=== PATIENT | male | born 1955 ===

== ENCOUNTER 2017-03-08 03:24 | Inpatient (IN) ==
[2017-03-08] MEDS ORDERED: VECURONIUM 10 MG VIAL IV STA (03:39)
[2017-03-08] MEDS: PROPOFOL 1,000 MG/100 ML BOTTLE IV SCH ×3 (03:43→13:03)
[2017-03-08 03:44] LABS: ABG Base Excess -2.6 MMOL/L (-2.5-2.5); ABG HCO3 22.2 MMOL/L (20-26); ABG Oxygen Saturation 92.3 % (95-100); ABG PCO2 45.2 MM HG (35-48); ABG PH 7.326 (7.35-7.45); ABG PO2 73.4 MM HG (80-95); ABG TCO2 21.3 MMOL/L (23-27)
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
[2017-03-08 04:38] LABS: CKMB % 1.2 %; Troponin I Only 0.045 NG/ML (0.00-0.045)
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
[2017-03-08] MEDS ORDERED: PIPERACILLIN/TAZOBACTAM 3,375 MG in SODIUM CHLORIDE 0.9% 100 ML IV SCH (05:31)
[2017-03-08] MEDS ORDERED: VANCOMYCIN INJ 1,000 MG in SODIUM CHLORIDE 0.9% 250 ML IV ONE (05:31)
[2017-03-08] MEDS ORDERED: fentaNYL INJ 1,250 MCG in SODIUM CHLORIDE 0.9% 225 ML IV SCH (05:31)
[2017-03-08] MEDS ORDERED: AZITHROMYCIN INJ 500 MG in SODIUM CHLORIDE 0.9% 250 ML IV ONE (05:31)
[2017-03-08] MEDS ORDERED: BISACODYL 5 MG TABLET PO PRN (05:31)
[2017-03-08] MEDS ORDERED: DOCUSATE SODIUM 100 MG CAPSULE PO PRN (05:31)
[2017-03-08] MEDS ORDERED: POTASSIUM CHLORIDE 20 MEQ/15 ML UDCUP PER TUBE PRN (05:31)
[2017-03-08 05:40] LABS: Hematocrit 33.4 VOL% (42.0-52.0); Lymphocytes # 0.3 10*3/uL (1.4-4.0); Lymphocytes % 19.5 % (21.2-54.2); Mean Corpuscular HGB Conc 32.9 GM/DL (32-36); Mean Corpuscular Hemoglobin 29 PG (27-34); Mean Corpuscular Volume 88.1 FL (87-102); Mean Platelet Volume 10.6 FL (9.6-12.0); Monocytes % 3.1 % (1.7-12.7); Neutrophils % 77.4 % (38.7-73.9); Platelet Count 235 T/CUMM (130-400); Red Blood Count 3.79 MC/CUMM (3.8-5.5); Red Cell Distribution Width 17.2 % (9.3-17.3); White Blood Count 1.3 T/CUMM (4-12)
[2017-03-08] MEDS ORDERED: AZITHROMYCIN 500 MG VIAL IV ONE (05:40)
[2017-03-08] MEDS ORDERED: VANCOMYCIN 1,000 MG VIAL ONE (05:40)
[2017-03-08 05:44] LABS: INR 1.2; PT Patient Result 13.2 SECS; Partial Thromboplastin Time 37.6 SECS (0-40)
[2017-03-08 06:01] LABS: Albumin 2.3 G/DL (3.4-5.0); Bilirubin,Total 1.7 MG/DL (0.2-1.0); Calcium 7.1 MG/DL (8.5-10.1); Magnesium 2.2 MG/DL (1.8-2.4); Osmolality,Calculated 291.2 MOS/KG (273-304); Phosphorous 5.6 MG/DL (2.5-4.9); Potassium 3.4 MMOL/L (3.5-5.1); Total Protein 5.5 G/DL (6.4-8.3)
[2017-03-08 06:26] LABS: Band Neutrophils 18 % (0-10); Burr Cells Slight; Hypochromasia 1+; Lymphocytes 16 % (20-55); Platelet Estimate Adequate; Segmented Neutrophils 65 % (50-85); Total Cells Counted 100
[2017-03-08] MEDS ORDERED: PIPERACILLIN/TAZOBACTAM 3,375 MG VIAL IV ONE (07:04)
[2017-03-08] MEDS ORDERED: ASPIRIN EC 81 MG TABLET PO SCH (09:00)
[2017-03-08 09:10] LABS: ABG Base Excess -4.3 MMOL/L (-2.5-2.5); ABG HCO3 20.9 MMOL/L (20-26); ABG Oxygen Saturation 97.2 % (95-100); ABG PCO2 35.5 MM HG (35-48); ABG PH 7.367 (7.35-7.45); ABG PO2 98.4 MM HG (80-95); ABG TCO2 18.2 MMOL/L (23-27)
--- NOTE | 2017-03-08 09:10 | XRay Report ---
XR chest 1V portable Indication: Intubated. Chest one view: Comparison chest x-ray from outside facility 1.5 hours earlier. Endotracheal tube position is stable, 2 cm cephalad of the domenic. Worsening infiltrates involve the alveolar spaces of both lungs, with complete obscuration of the lung bases. Heart size remains minimally enlarged. Defibrillator pad again shown. Impression: Worsening pulmonary edema or diffuse infiltrates. Stable and appropriate endotracheal tube position. PROCEDURE INTERPRETED AT [facility] DEPARTMENT OF RADIOLOGY Final Report Signed by: Alfred Graham M.D.
--- NOTE | 2017-03-08 10:00 | Hospitalist Progress Note ---
Assessment and Plan (1) Congestive heart failure Status: Chronic Current Visit: No Qualifiers: Congestive heart failure type: unspecified congestive heart failure type (2) Diabetes Status: Chronic Current Visit: Yes Qualifiers: Diabetes mellitus type: type 1 Diabetes mellitus complication status: with kidney complications Diabetes mellitus complication detail: with chronic kidney disease Chronic kidney disease stage: stage 4 (severe) Qualified Code (s): E10.22 - Type 1 diabetes mellitus with diabetic chronic kidney disease; N18.4 - Chronic kidney disease, stage 4 (severe) (3) Hypertension Status: Chronic Current Visit: Yes (4) Elevated brain natriuretic peptide (BNP) level Status: Acute Assessment and plan: Component of congestive heart failure. Current Visit: No (5) Cardiomyopathy Status: Chronic Current Visit: No (6) Chronic kidney disease, stage IV (severe) Status: Chronic Current Visit: Yes (7) Respiratory failure Status: Acute Assessment and plan: Ask for pulmonary consultation. Current Visit: Yes Qualifiers: Chronicity: acute (8) Hypoglycemia Status: Resolved Assessment and plan: Will do mild sliding scale noted. Current Visit: Yes Hospitalist: Subjective Interval history: This patient was admitted on last night due to hypoglycemia and respiratory failure. He is now on a ventilator at this time sugars have started to improve. Hemodynamics are stable. Chest x-ray shows evidence of pulmonary edema. Exam - Constitutional Vitals: Period Temp Pulse Resp BP Sys/Post Pulse Ox Last 24 Hr 76-111 14-29 80-137/55-94 95-100 Ventilated sedated. Cardiovascular is regular rate. Lungs occasional wheezes. Abdomen is soft. Lower extremity 1+ lower extremity edema. General appearance: normal weight - Neck Neck exam: Present: normal inspection - Respiratory Respiratory exam: Present: rales - Cardiovascular Cardiovascular exam: Present: regular rate and rhythm - GI/Abdominal GI/Abdominal exam: Present: normal bowel sounds - Extremities Exam Extremities exam: Present: normal inspection Results - Labs CBC & BMP: 03/08/17 03:36 03/08/17 03:36
[2017-03-08] MEDS: LANSOPRAZOLE ODT 30 MG TABLET PER TUBE SCH (11:04)
[2017-03-08] MEDS: CYANOCOBALAMIN 500 MCG TABLET PO SCH (11:04)
[2017-03-08] MEDS: metOLazone 5 MG TABLET PO SCH (11:05)
[2017-03-08] MEDS: FUROSEMIDE 40 MG TABLET PO SCH ×2 (11:06→16:52)
[2017-03-08] MEDS: FOLIC ACID 1 MG TABLET PO SCH (11:06)
[2017-03-08] MEDS: ALBUTEROL/IPRATROPIUM 3 ML NEB RESP TX SCH ×4 (11:12→23:44)
[2017-03-08] MEDS ORDERED: VANCOMYCIN INJ 1,500 MG in SODIUM CHLORIDE 0.9% 500 ML IV PRN (11:19)
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
[2017-03-08 11:57] LABS: CKMB % 1.6 %
[2017-03-08 11:59] LABS: Troponin I Only 0.046 NG/ML (0.00-0.045)
[2017-03-08] MEDS ORDERED: VANCOMYCIN INJ 500 MG in SODIUM CHLORIDE 0.9% 100 ML IV ONE (12:00)
--- NOTE | 2017-03-08 13:08 | Ultrasound Report ---
US venous doppler LE BI Indication: Edema. Respiratory distress. BILATERAL LOWER EXTREMITY VENOUS ULTRASOUND Comparison: 08/02/2015 Findings: Graded grayscale compression, color Doppler and pulsed Doppler ultrasound evaluation of the venous structures performed. Normal compressibility, augmentation and color saturation is present within bilateral common femoral, superficial femoral, popliteal and proximal greater saphenous veins. Impression: No evidence of DVT either lower extremity. PROCEDURE INTERPRETED AT [facility] DEPARTMENT OF RADIOLOGY Final Report Signed by: Alfred Graham M.D.
[2017-03-08 14:11] LABS: Apearance,Urine Slightly Hazy (Clear); Bilirubin,Urine Negative (Negative); Blood, Urine Moderate mg/dL (Negative); Glucose,Urine (UA) 50 mg/dL (Negative); Ketones,Urine Negative (Negative); Mucus,Urine Occasional /LPF (Occasional); Nitrite,Urine Negative (Negative); Protein,Urine 100 MG/DL; RBC,Urine 2 /HPF (0-4); Urine Color Yellow (Yellow); Urine Specific Gravity 1.011 (1.001-1.035); Urine Urobilinogen < 2.0 EU/DL (0.2-1.0); WBC,Urine 1 /HPF (0-6)
--- NOTE | 2017-03-08 17:39 | ECHO Report ---
Juan Miguel Mantilla Exam Date: 03/08/2017 10:36 Referring Physician: Technologist: Susan Garcia RDCS Age: 61 Ht (in): 69 Wt (lb): 205 Gender: M Exam Location: [facility] Echo Indications: Acute respiratory failure with hypoxia, Chronic kidney disease, stage 4 (severe), Acute on chronic systolic (congestive) heart failure, Essential (primary) hypertension, IDDM, Hypoglycemia, Hypokalemia BP: 119 / 74 HR: 107 Rhythm: Sinus Technical Quality: IMPRESSIONS Normal left ventricular size, with mild concentric hypertrophy. Severe global hypokinesis, estimated left ventricular ejection fraction 20%. Grade 3 diastolic dysfunction. The right ventricle is mildly dilated, with normal systolic function, mild pulmonary hypertension. Mild biatrial enlargement. Mild pulmonic valve insufficiency. MEASUREMENTS (Male / Female) Normal Values 2D ECHO LV Diastolic Diameter PLAX 5.4 cm 4.2 - 5.9 / 3.9 - 5.3 cm LV Systolic Diameter PLAX 4.7 cm LV Fractional Shortening PLAX 12.4 % IVS Diastolic Thickness 1.3 cm 0.6 - 1.0 / 0.6 - 0.9 cm LVPW Diastolic Thickness 1.3 cm 0.6 - 1.0 / 0.6 - 0.9 cm RV Internal Dim ED PLAX 4.2 cm Aortic Root Diameter 3.7 cm LA Systolic Diameter LX 4.8 cm 3.0 - 4.0 / 2.7 - 3.8 cm DOPPLER TR Peak Velocity 304.0 cm/s TR Peak Gradient 37.0 mmHg FINDINGS Left Ventricle Normal left ventricular size, with mild concentric hypertrophy. Severe global hypokinesis, estimated left ventricular ejection fraction 20%. Grade 3 diastolic dysfunction. Right Ventricle The right ventricle is mildly dilated, with normal systolic function. Right Atrium The right atrium is mildly enlarged. Left Atrium The left atrium is mildly enlarged. Mitral Valve Morphologically normal mitral valve without significant stenosis or prolapse. There is trace mitral regurgitation. Aortic Valve Morphologically normal aortic valve without significant sclerosis or stenosis. There is trace aortic regurgitation. Tricuspid Valve Morphologically normal tricuspid valve. Mild tricuspid valve regurgitation. Tricuspid regurgitation velocities suggest a PAP of 47 mmHg. Pulmonic Valve Morphologically normal pulmonic valve. Mild pulmonary valve regurgitation. Pericardium Normal pericardium without effusion. Aorta Normal ascending aorta dimension. Andrade Villafuerte (Electronically Signed) Final Date: 08 March 2017 17:37
[2017-03-08 18:58] LABS: Troponin I Only 0.048 NG/ML (0.00-0.045)
[2017-03-08] MEDS: PIPERACILLIN/TAZOBACTAM 3,375 MG in SODIUM CHLORIDE 0.9% 100 ML IV SCH (20:28)
[2017-03-09] MEDS: PROPOFOL 1,000 MG/100 ML BOTTLE IV SCH ×3 (02:48→18:27)
[2017-03-09] MEDS: ALBUTEROL/IPRATROPIUM 3 ML NEB RESP TX SCH ×5 (03:12→19:46)
[2017-03-09 04:10] LABS: Allen Test Positive; Pt O2 Delivery Device Ventilator
[2017-03-09 04:15] LABS: ABG Base Excess -1.5 MMOL/L (-2.5-2.5); ABG HCO3 22.1 MMOL/L (20-26); ABG Oxygen Saturation 99.3 % (95-100); ABG PCO2 33.4 MM HG (35-48); ABG PH 7.439 (7.35-7.45); ABG PO2 218.5 MM HG (80-95); ABG TCO2 23.2 MMOL/L (23-27)
[2017-03-09 04:46] LABS: Basophils % 0.2 % (0.0-0.8); Eosinophils % 0.1 % (0.00-10.9); Hematocrit 29.6 VOL% (42.0-52.0); Hemoglobin 9.8 GM/DL (14.0-18.0); Immature Granulocytes % 2.4 %; Lymphocytes # 0.9 10*3/uL (1.4-4.0); Lymphocytes % 5.6 % (21.2-54.2); Mean Corpuscular HGB Conc 33.1 GM/DL (32-36); Mean Corpuscular Hemoglobin 29 PG (27-34); Mean Corpuscular Volume 87.3 FL (87-102); Mean Platelet Volume 11.2 FL (9.6-12.0); Monocytes # 0.4 10*3/uL (0.11-0.8); Monocytes % 2.6 % (1.7-12.7); Neutrophils # 14.7 10*3/uL (1.4-7.4); Neutrophils % 89.1 % (38.7-73.9); Platelet Count 210 T/CUMM (130-400); Red Blood Count 3.39 MC/CUMM (3.8-5.5); Red Cell Distribution Width 17.4 % (9.3-17.3)
[2017-03-09 05:09] LABS: Osmolality,Calculated 295.8 MOS/KG (273-304); Potassium 4.5 MMOL/L (3.5-5.1)
[2017-03-09 05:10] LABS: White Blood Count 16.5 T/CUMM (4-12)
[2017-03-09 05:30] LABS: Band Neutrophils 17 % (0-10); Burr Cells Slight; Hypochromasia Slight; Lymphocytes 8 % (20-55); Platelet Estimate Adequate; Segmented Neutrophils 75 % (50-85); Total Cells Counted 100
[2017-03-09 05:31] LABS: Ovalocytes Slight
--- NOTE | 2017-03-09 07:26 | XRay Report ---
Referring Physician: Alfonso Quesada Exam: XR chest 1V portable Date: March 09, 2017 at 3:14 AM Reason: Ventilator Comparison: Chest one view portable March 08, 2017 Findings: An endotracheal tube and feeding tube are again in place. The cardiac silhouette is again mildly enlarged. There are scattered opacities throughout both lungs, left greater than right. This could represent pulmonary edema and/or pneumonia. No pneumothorax is identified, but there is mild left pleural fluid. The osseous structures appear stable with a remote fracture of the left clavicle. Impression: There is slight improved aeration of both lungs with decreased right pleural fluid. PROCEDURE INTERPRETED AT [facility] DEPARTMENT OF RADIOLOGY Final Report Signed by: Dr. Ronak Nielson
[2017-03-09] MEDS: LANSOPRAZOLE ODT 30 MG TABLET PER TUBE SCH (08:40)
[2017-03-09] MEDS: metOLazone 5 MG TABLET PO SCH (08:40)
[2017-03-09] MEDS: CYANOCOBALAMIN 500 MCG TABLET PO SCH (08:40)
[2017-03-09] MEDS: FOLIC ACID 1 MG TABLET PO SCH (08:41)
[2017-03-09] MEDS: FUROSEMIDE 40 MG TABLET PO SCH ×2 (08:41→15:44)
[2017-03-09] MEDS: PIPERACILLIN/TAZOBACTAM 3,375 MG in SODIUM CHLORIDE 0.9% 100 ML IV SCH ×2 (08:48→20:34)
[2017-03-09] MEDS: ASPIRIN CHEW 81 MG TABLET PO SCH (08:48)
--- NOTE | 2017-03-09 09:58 | Hospitalist Progress Note ---
Assessment and Plan (1) Congestive heart failure Status: Chronic Current Visit: No Qualifiers: Congestive heart failure type: unspecified congestive heart failure type (2) Diabetes Status: Chronic Current Visit: Yes Qualifiers: Diabetes mellitus type: type 1 Diabetes mellitus complication status: with kidney complications Diabetes mellitus complication detail: with chronic kidney disease Chronic kidney disease stage: stage 4 (severe) Qualified Code (s): E10.22 - Type 1 diabetes mellitus with diabetic chronic kidney disease; N18.4 - Chronic kidney disease, stage 4 (severe) (3) Chronic kidney disease, stage IV (severe) Status: Chronic Current Visit: Yes (4) Bilateral pneumonia Status: Acute Current Visit: Yes (5) Acute hypoxemic respiratory failure Status: Acute Current Visit: Yes (6) Hypoglycemia Status: Resolved Current Visit: Yes Hospitalist: Subjective Interval history: No acute events overnight. Patient sedated on mechanical ventilation. Pulmonary managing. Continue vancomycin and zosyn for pneumonia. Renal consult today. Exam - Constitutional Vitals: Period Temp Pulse Resp BP Sys/Post Pulse Ox Last 24 Hr 98.2 F-98.9 F 64-107 2-519 86-121/45-80 97-100 General appearance: normal weight - Head Head exam: Present: normocephalic, atraumatic - Eye Eye exam: Present: EOMI Pupils: Present: ASHLY - ENT ENT exam: Present: normal exam - Neck Neck exam: Present: normal inspection - Respiratory Respiratory exam: Present: clear to auscultation bilaterally. Absent: rhonchi, wheezes - Cardiovascular Cardiovascular exam: Present: regular rate and rhythm - GI/Abdominal GI/Abdominal exam: Present: normal bowel sounds, soft - Extremities Exam Extremities exam: Present: normal inspection - Back Exam Back exam: Present: normal inspection - Skin Skin exam: Present: warm, intact Results - Labs CBC & BMP: 03/09/17 03:26 03/09/17 03:26
--- NOTE | 2017-03-09 10:19 | Pulmonology Progress Note ---
Pulmonary - PN: Subj Interval history: This is a 61-year-old male whom I saw in pulmonary consultation on 03/08/2017. This patient been sent from an outside hospital with chest pain. His troponins were said to be elevated. He had respiratory failure for oxygen and required intubation mechanical ventilation. Patient had originally been found down at home. He had taken insulin but had not eaten and was told that his glucoses were 40. My impressions were. 1. Bilateral pneumonia. I think we have to cover for gram positives and gram- negative rods but I suspect this will negative turner to be staph. 2. Adult respiratory distress syndrome most likely secondary to #1. Watch for congestive heart failure 3. History of heart disease with ejection fraction of 40% 4. Hypoglycemia. 5. Insulin-dependent diabetes mellitus 6. Chronic renal failure. 6. Anemia 7. Previous splenectomy. 8. Electrolyte abnormalities. 9. Calcium and phosphorus abnormalities. 10. See past history 03/09/2017. Today's chest x-ray shows 5 lobe bilateral infiltrates. On the right side these are a little less extensive a little less dense than before. There are no positive cultures. The patient's admit white blood cell count was 1300. Is now increased to 16,500 with 89 6. H&H is low at 9.8/29.6. Electrolytes normal. Creatinine is 4.2 with a BUN of 68. Natruretic peptide is elevated 1664. ABGs on mechanical ventilation FiO2 90% shows a pH 7.44, PCO2 33.4, PO2 has increased to 6 218.5 with a bicarb of 22.1. Doppler venograms done 03/08/2017 showed no evidence of deep venous thrombophlebitis. We do not know whether or not this patient aspirated. Once she is more stable I will evaluated with fiberoptic bronchoscopy. I anticipate this will be on 2016. This patient needs to be followed by renal. Meds have been reviewed. Labs been reviewed. Echocardiogram. 03/08/2017. Severe global hypokinesis with an estimated ejection fraction of 20%. Grade 3 diastolic dysfunction. The right ventricle is mildly dilated. There is bilateral atrial enlargement. There is mild pulmonary valve insufficiency. Pulmonary artery pressures are mildly elevated at 47 mmHg. There is a trace of aortic regurgitation. There is a trace of mitral regurgitation. Physical exam. Vital signs. See below Face is symmetrical. Lips and tongue are not swollen. Neck. Symmetrical. No meningismus Lymphatics. No submandibular cervical supraclavicular or epitrochlear adenopathy. Chest. Coarse large airway congestion Heart. Lateral PMI Abdomen. Nondistended. Rare bowel sounds. Extremities. Poorly kept feet with chronic venous stasis The remainder the physical exam is noncontributory. Plan. 1. Mechanical ventilation. PEEP of 8 pressure support of 15 and high FiO2. 2. Agree with Zosyn. 3. Vancomycin. Consult pharmacology for renal adjustment 4. Sputum for Gram stain culture and sensitivity 5. Cold agglutinins. 03/09/2017, negative. 6. Legionella titer 7. Daily chest x-ray ABGs and lab 8. Doppler venograms of the lower extremities. We will out deep venous thrombophlebitis 9. Echocardiogram. See report. 10. Mechanical ventilation weaning protocol 11. Mechanical ventilation physical therapy protocol 12. Deep venous thrombophlebitis prevention protocol 13. Proton pump inhibitor protocol 14. 03/09/2017. Fiberoptic bronchoscopy tentatively scheduled for 03/11/2017. Cardiac ejection fraction is 20%. Need cardiology consultation. Creatinine is 4. Need renal consultation. Continue present antibiotics. Note the sputum and Legionella titers are pending. Exam (Progress Note) - Constitutional Vitals: Period Temp Pulse Resp BP Sys/Post Pulse Ox Last 24 Hr 97.3 F-98.9 F 64-107 2-519 86-121/45-80 97-100 Results - Labs CBC & BMP: 03/09/17 03:26 03/09/17 03:26
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
[2017-03-09 12:52] LABS: Risk Ratio 3.32; VLDL CHOLESTEROL 24.8 MG/DL
[2017-03-09] MEDS: CARVEDILOL 3.125 MG TABLET PO SCH ×2 (13:20→20:34)
[2017-03-10] MEDS: ALBUTEROL/IPRATROPIUM 3 ML NEB RESP TX SCH ×7 (00:25→23:52)
[2017-03-10] MEDS: PROPOFOL 1,000 MG/100 ML BOTTLE IV SCH ×5 (01:48→22:23)
[2017-03-10 03:23] LABS: ABG Base Excess -0.7 MMOL/L (-2.5-2.5); ABG Oxygen Saturation 99.5 % (95-100); ABG PCO2 34.2 MM HG (35-48); ABG PH 7.446 (7.35-7.45); ABG TCO2 24.1 MMOL/L (23-27); Allen Test Positive; Pt O2 Delivery Device Ventilator
[2017-03-10 04:52] LABS: Basophils % 0.2 % (0.0-0.8); Eosinophils # 0.1 10*3/uL (0.0-0.87); Eosinophils % 0.7 % (0.00-10.9); Hematocrit 27.5 VOL% (42.0-52.0); Immature Granulocytes % 1.3 %; Immature Granulocytes Absolute 0.22 #; Lymphocytes # 0.9 10*3/uL (1.4-4.0); Lymphocytes % 5.6 % (21.2-54.2); Mean Corpuscular HGB Conc 32.7 GM/DL (32-36); Mean Corpuscular Hemoglobin 29 PG (27-34); Mean Corpuscular Volume 87.9 FL (87-102); Mean Platelet Volume 11.7 FL (9.6-12.0); Monocytes # 0.4 10*3/uL (0.11-0.8); Monocytes % 2.1 % (1.7-12.7); Neutrophils # 14.9 10*3/uL (1.4-7.4); Neutrophils % 90.1 % (38.7-73.9); Platelet Count 182 T/CUMM (130-400); Red Blood Count 3.13 MC/CUMM (3.8-5.5); Red Cell Distribution Width 17.5 % (9.3-17.3); White Blood Count 16.5 T/CUMM (4-12)
[2017-03-10 05:18] LABS: Burr Cells Slight; Calcium 6.9 MG/DL (8.5-10.1); Hypochromasia 1+; Magnesium 2.3 MG/DL (1.8-2.4); Osmolality,Calculated 301.7 MOS/KG (273-304); Ovalocytes Slight; Platelet Estimate Adequate; Potassium 4.1 MMOL/L (3.5-5.1)
[2017-03-10 05:31] LABS: Free T4 (Free Thyroxine) 1.29 NG/DL (0.76-1.46); Risk Ratio 6.4; Thyroid Stimulating Hormone 1.63 uIU/ml (0.358-3.74); VLDL CHOLESTEROL 35.4 MG/DL
--- NOTE | 2017-03-10 06:53 | XRay Report ---
Referring Physician: Alfonso Quesada Exam: XR chest 1V portable Date: March 10, 2017 at 3:17 AM Reason: Ventilator, respiratory failure Comparison: Chest one view portable March 09, 2017 Findings: An endotracheal tube and feeding tube are again in place. The distal tip of the endotracheal tube is at the level of the aortic arch, projecting approximately 0.5 cm above the domenic. The cardiac silhouette is again mildly enlarged. There are scattered opacities within both lungs, left greater than right. This could represent pulmonary edema and/or pneumonia. No pneumothorax is identified, but there is mild left pleural fluid. The osseous structures appear stable. Impression: There are again scattered opacities within both lungs which may have slightly improved on the left. PROCEDURE INTERPRETED AT [facility] DEPARTMENT OF RADIOLOGY Final Report Signed by: Dr. Ronak Nielson
--- NOTE | 2017-03-10 06:56 | Cardiology Progress Note ---
Cardiology - PN: Subj Interval history: Cardiology note 61-year-old man admitted with pneumonia and CHF and low blood sugar 40 requiring intubation. Gets very tachypneic off propofol telemetry shows sinus rhythm at 70-80 range Blood pressure 115/66 Decreased breath sounds few basilar rhonchi Regular rhythm no murmur Abdomen obese and nontender No leg edema Lab data White count 16.5 hemoglobin 9.0 hematocrit 27.5 Sodium 138 potassium 4.1 chloride 100 CO2 23 BUN 78 creatinine 4.50 Glucose 170 Impression Recurrent CHF Pneumonia Diabetes with blood sugar 40 yesterday Chronic renal failure. Baseline creatinine 3.80 1 month ago. Creatinine today 4.50 Cardiomyopathy EF 20% grade 3 diastolic dysfunction PA pressure 50 by recent echo Plan IV Lasix IV antibiotics Accu-Chek sugars Wean vent as tolerated Labs in a.m. Exam (Progress Note) - Constitutional Vitals: Period Temp Pulse Resp BP Sys/Post Pulse Ox Last 24 Hr 96.2 F-98.6 F 70-88 16-22 94-135/45-79 98-100 Result/EKG - Labs CBC & BMP: 03/10/17 03:07 03/10/17 03:07 Labs: Laboratory Results - last 24 hr 03/09/17 03/09/17 03/09/17 03:26 08:07 12:10 WBC RBC Hgb Hct MCV MCH MCHC RDW Plt Count MPV Neut % (Auto) Lymph % (Auto) [place] % (Auto) Eos % (Auto) Baso % (Auto) Neut # (Auto) Lymph # (Auto) [place] # (Auto) Eos # (Auto) Baso # (Auto) Immature Gran % Nucleated RBC % Immature Gran # Nucleated RBCs # Platelet Estimate Hypochromasia Ovalocytes [place] Cells Morphology Comment ABG pH ABG pCO2 ABG pO2 ABG HCO3 ABG Total CO2 ABG O2 Saturation ABG Base Excess FiO2 Sodium Potassium Chloride Carbon Dioxide Anion Gap BUN Creatinine GFR Calculation BUN/Creatinine Ratio Glucose POC Glucose 180 H 196 H Calculated Osmolality Calcium Magnesium B-Natriuretic Peptide Triglycerides 124 Cholesterol 93 LDL Cholesterol 48.0 VLDL Cholesterol 24.8 HDL Cholesterol 28 L Heart Disease Risk Ratio 3.32 Free T4 TSH 3rd Generation Random Vancomycin 03/09/17 03/09/17 03/10/17 18:16 23:43 03:07 WBC RBC Hgb Hct MCV MCH MCHC RDW Plt Count MPV Neut % (Auto) Lymph % (Auto) [place] % (Auto) Eos % (Auto) Baso % (Auto) Neut # (Auto) Lymph # (Auto) [place] # (Auto) Eos # (Auto) Baso # (Auto) Immature Gran % Nucleated RBC % Immature Gran # Nucleated RBCs # Platelet Estimate Hypochromasia Ovalocytes [place] Cells Morphology Comment ABG pH ABG pCO2 ABG pO2 ABG HCO3 ABG Total CO2 ABG O2 Saturation ABG Base Excess FiO2 Sodium Potassium Chloride Carbon Dioxide Anion Gap BUN Creatinine GFR Calculation BUN/Creatinine Ratio Glucose POC Glucose 204 H 171 H Calculated Osmolality Calcium Magnesium B-Natriuretic Peptide Triglycerides Cholesterol LDL Cholesterol VLDL Cholesterol HDL Cholesterol Heart Disease Risk Ratio Free T4 TSH 3rd Generation Random Vancomycin 10.4 03/10/17 03/10/17 03/10/17 03:07 03:07 03:07 WBC 16.5 H RBC 3.13 L Hgb 9.0 L Hct 27.5 L MCV 87.9 MCH 29 MCHC 32.7 RDW 17.5 H Plt Count 182 MPV 11.7 Neut % (Auto) 90.1 H Lymph % (Auto) 5.6 L [place] % (Auto) 2.1 Eos % (Auto) 0.7 Baso % (Auto) 0.2 Neut # (Auto) 14.9 H Lymph # (Auto) 0.9 L [place] # (Auto) 0.4 Eos # (Auto) 0.1 Baso # (Auto) 0.0 Immature Gran % 1.3 Nucleated RBC % 0.0 Immature Gran # 0.22 Nucleated RBCs # 0.00 Platelet Estimate Adequate Hypochromasia 1+ Ovalocytes Slight [place] Cells Slight Morphology Comment ABG pH ABG pCO2 ABG pO2 ABG HCO3 ABG Total CO2 ABG O2 Saturation ABG Base Excess FiO2 Sodium 138 Potassium 4.1 Chloride 100 Carbon Dioxide 23 Anion Gap 19.1 H BUN 78 H D Creatinine 4.50 H GFR Calculation 16 BUN/Creatinine Ratio 17.00 Glucose 170 H POC Glucose Calculated Osmolality 301.7 Calcium 6.9 L Magnesium 2.3 B-Natriuretic Peptide 377 H Triglycerides Cholesterol LDL Cholesterol VLDL Cholesterol HDL Cholesterol Heart Disease Risk Ratio Free T4 TSH 3rd Generation Random Vancomycin 03/10/17 03/10/17 03/10/17 03:07 03:09 05:44 WBC RBC Hgb Hct MCV MCH MCHC RDW Plt Count MPV Neut % (Auto) Lymph % (Auto) [place] % (Auto) Eos % (Auto) Baso % (Auto) Neut # (Auto) Lymph # (Auto) [place] # (Auto) Eos # (Auto) Baso # (Auto) Immature Gran % Nucleated RBC % Immature Gran # Nucleated RBCs # Platelet Estimate Hypochromasia Ovalocytes [place] Cells Morphology Comment ABG pH 7.446 ABG pCO2 34.2 L ABG pO2 310.0 H ABG HCO3 23.0 ABG Total CO2 24.1 ABG O2 Saturation 99.5 ABG Base Excess -0.7 FiO2 90.00 Sodium Potassium Chloride Carbon Dioxide Anion Gap BUN Creatinine GFR Calculation BUN/Creatinine Ratio Glucose POC Glucose 162 H Calculated Osmolality Calcium Magnesium B-Natriuretic Peptide Triglycerides 177 H Cholesterol 96 LDL Cholesterol 50.0 VLDL Cholesterol 35.4 HDL Cholesterol 15 L Heart Disease Risk Ratio 6.40 Free T4 1.29 TSH 3rd Generation 1.630 Random Vancomycin
[2017-03-10] MEDS: CYANOCOBALAMIN 500 MCG TABLET PO SCH (08:33)
[2017-03-10] MEDS: FUROSEMIDE 40 MG TABLET PO SCH ×2 (08:33→16:05)
[2017-03-10] MEDS: LANSOPRAZOLE ODT 30 MG TABLET PER TUBE SCH (08:33)
[2017-03-10] MEDS: ASPIRIN CHEW 81 MG TABLET PO SCH (08:33)
[2017-03-10] MEDS: PIPERACILLIN/TAZOBACTAM 3,375 MG in SODIUM CHLORIDE 0.9% 100 ML IV SCH ×2 (08:34→20:43)
[2017-03-10] MEDS: FOLIC ACID 1 MG TABLET PO SCH (08:34)
[2017-03-10] MEDS: CARVEDILOL 3.125 MG TABLET PO SCH ×2 (08:34→20:43)
[2017-03-10] MEDS: metOLazone 5 MG TABLET PO SCH (08:34)
[2017-03-10] MEDS ORDERED: VANCOMYCIN INJ 1,500 MG in SODIUM CHLORIDE 0.9% 500 ML IV ONE ×2 (09:00→14:00)
[2017-03-10] MEDS ORDERED: DEXTROSE 50% 25 GM/50 ML VIAL IV PRN (09:52)
[2017-03-10] MEDS ORDERED: GLUCAGON 1 MG VIAL IM PRN (09:52)
--- NOTE | 2017-03-10 10:00 | Hospitalist Progress Note ---
Assessment and Plan (1) Congestive heart failure Status: Acute Current Visit: Yes Qualifiers: Congestive heart failure type: unspecified congestive heart failure type Congestive heart failure chronicity: acute on chronic Qualified Code(s): I50.9 - Heart failure, unspecified (2) Diabetes Status: Chronic Current Visit: Yes Qualifiers: Diabetes mellitus type: type 1 Diabetes mellitus complication status: with kidney complications Diabetes mellitus complication detail: with chronic kidney disease Chronic kidney disease stage: stage 4 (severe) Qualified Code (s): E10.22 - Type 1 diabetes mellitus with diabetic chronic kidney disease; N18.4 - Chronic kidney disease, stage 4 (severe) (3) Chronic kidney disease, stage IV (severe) Status: Chronic Current Visit: Yes (4) Bilateral pneumonia Status: Acute Current Visit: Yes (5) Acute hypoxemic respiratory failure Status: Acute Current Visit: Yes (6) Hypoglycemia Status: Resolved Current Visit: Yes Hospitalist: Subjective Interval history: No acute events overnight. Still with leukocytosis. Continue vancomycin and zosyn for pneumonia. Nephrology consulted yesterday for assitance with CKD. Patient with history of CHF, cardiology was consutled. Continue diuresis. Exam - Constitutional Vitals: Period Temp Pulse Resp BP Sys/Post Pulse Ox Last 24 Hr 96.2 F-98.6 F 68-88 10-22 95-135/53-79 98-100 General appearance: over weight - Head Head exam: Present: normocephalic, atraumatic - Eye Eye exam: Present: EOMI Pupils: Present: ASHLY - ENT ENT exam: Present: normal exam - Neck Neck exam: Present: normal inspection - Respiratory Respiratory exam: Present: clear to auscultation bilaterally. Absent: rhonchi, wheezes - Cardiovascular Cardiovascular exam: Present: regular rate and rhythm - GI/Abdominal GI/Abdominal exam: Present: normal bowel sounds, soft. Absent: tenderness, rebound - Extremities Exam Extremities exam: Present: normal inspection - Back Exam Back exam: Present: normal inspection - Skin Skin exam: Present: warm, intact Results - Labs CBC & BMP: 03/10/17 03:07 03/10/17 03:07
--- NOTE | 2017-03-10 11:43 | Pulmonology Progress Note ---
Pulmonary - PN: Subj Interval history: This is a 61-year-old male whom I saw in pulmonary consultation on 03/08/2017. This patient been sent from an outside hospital with chest pain. His troponins were said to be elevated. He had respiratory failure for oxygen and required intubation mechanical ventilation. Patient had originally been found down at home. He had taken insulin but had not eaten and was told that his glucoses were 40. My impressions were. 1. Bilateral pneumonia. I think we have to cover for gram positives and gram- negative rods but I suspect this will route agent to be staph. 2. Adult respiratory distress syndrome most likely secondary to #1. Watch for congestive heart failure 3. History of heart disease with ejection fraction of 40% 4. Hypoglycemia. 5. Insulin-dependent diabetes mellitus 6. Chronic renal failure. 6. Anemia 7. Previous splenectomy. 8. Electrolyte abnormalities. 9. Calcium and phosphorus abnormalities. 10. See past history 03/09/2017. Today's chest x-ray shows 5 lobe bilateral infiltrates. On the right side these are a little less extensive a little less dense than before. There are no positive cultures. The patient's admit white blood cell count was 1300. Is now increased to 16,500 with 89 6. H&H is low at 9.8/29.6. Electrolytes normal. Creatinine is 4.2 with a BUN of 68. Natruretic peptide is elevated 1664. ABGs on mechanical ventilation FiO2 90% shows a pH 7.44, PCO2 33.4, PO2 has increased to 6 218.5 with a bicarb of 22.1. Doppler venograms done 03/08/2017 showed no evidence of deep venous thrombophlebitis. We do not know whether or not this patient aspirated. Once she is more stable I will evaluated with fiberoptic bronchoscopy. I anticipate this will be on 2016. This patient needs to be followed by renal. Meds have been reviewed. Labs been reviewed. Echocardiogram. 03/08/2017. Severe global hypokinesis with an estimated ejection fraction of 20%. Grade 3 diastolic dysfunction. The right ventricle is mildly dilated. There is bilateral atrial enlargement. There is mild pulmonary valve insufficiency. Pulmonary artery pressures are mildly elevated at 47 mmHg. There is a trace of aortic regurgitation. There is a trace of mitral regurgitation. 03/10/2017. Patient's chest x-ray is improved. He still has alveolar filling infiltrates in all 5 lobes of his lungs. There are air bronchograms present. This is a resolving pneumonia. He has no positive cultures. He has had an art like picture. His O2 is increased to a good bit and I am able to cut back his O2 sats today and will progress with his weaning protocol as he tolerates it. The patient has underlying heart disease his natruretic peptide to have fallen from 1989-. Echocardiogram showed severe global hypokinesis with ejection fraction of 20% and grade 3 diastolic dysfunction. There is a good chance part of his chest x-ray appearance was related to atypical pulmonary edema. Cardiology is on the case. Electrolytes are normal. Creatinine remains elevated at 4.5 with a BUN of 78. Glucoses are coming under better control. Thyroid function tests are normal. White count 16,500 with 96. H&H is gradually decreasing to 9.0/27.5 with a platelet count of 182,000. Physical exam. Vital signs. See below Face is symmetrical. Lips and tongue are not swollen. Neck. Symmetrical. No meningismus Lymphatics. No submandibular cervical supraclavicular or epitrochlear adenopathy. Chest. Coarse large airway congestion has improved significant Heart. Lateral PMI Abdomen. Nondistended. Rare bowel sounds. Extremities. Poorly kept feet with chronic venous stasis The remainder the physical exam is noncontributory. Plan. 1. Mechanical ventilation. PEEP of 8 pressure support of 15 and high FiO2. 2. Agree with Zosyn. 3. Vancomycin. Consult pharmacology for renal adjustment 4. Sputum for Gram stain culture and sensitivity 5. Cold agglutinins. 03/09/2017, negative. 6. Legionella titer 7. Daily chest x-ray ABGs and lab 8. Doppler venograms of the lower extremities. We will out deep venous thrombophlebitis 9. Echocardiogram. See report. 10. Mechanical ventilation weaning protocol 11. Mechanical ventilation physical therapy protocol 12. Deep venous thrombophlebitis prevention protocol 13. Proton pump inhibitor protocol 14. 03/09/2017. Fiberoptic bronchoscopy tentatively scheduled for 03/11/2017. Cardiac ejection fraction is 20%. Need cardiology consultation. Creatinine is 4. Need renal consultation. Continue present antibiotics. Note the sputum and Legionella titers are pending. 15. 03/10/2017. Fiberoptic bronchoscopy on 03/11/2017. Weaning protocol. It appears the patient's only present antibiotic is Zosyn. Exam (Progress Note) - Constitutional Vitals: Period Temp Pulse Resp BP Sys/Post Pulse Ox Last 24 Hr 96.3 F-98.6 F 68-88 10-22 95-135/54-79 98-100 Results - Labs CBC & BMP: 03/10/17 03:07 03/10/17 03:07
--- NOTE | 2017-03-10 12:01 | Nephrology Progress Note ---
Nephrology - PN: Subj Interval history: He remains on the ventilator. Her pressure is stable Exam (PN)-Nephrology - Vital Signs Vital signs: Period Temp Pulse Resp BP Sys/Post Pulse Ox Last 24 Hr 96.3 F-98.6 F 68-88 09-20 95-135/54-79 98-100 Exam: ENT: Intubated Cardiovascular: Regular rate and rhythm. No murmur rub or gallop Lungs: Clear Extremities: No edema - Lab 03/10/17 03:07 03/10/17 03:07 Most recent lab results ABG pH 7.446 (7.35-7.45) 03/10/17 03:09 ABG pCO2 34.2 MM HG (35-48) L 03/10/17 03:09 ABG pO2 310.0 MM HG (80-95) H 03/10/17 03:09 ABG HCO3 23.0 MMOL/L (20-26) 03/10/17 03:09 ABG O2 Saturation 99.5 % (95-100) 03/10/17 03:09 Calcium 6.9 MG/DL (8.5-10.1) L 03/10/17 03:07 Phosphorus 5.6 MG/DL (2.5-4.9) H 03/08/17 03:36 Magnesium 2.3 MG/DL (1.8-2.4) 03/10/17 03:07 Assessment and Plan (1) Acute hypoxemic respiratory failure Status: Acute Assessment and plan: 61-year-old man admitted with: * Bilateral pneumonia. Ventilatory failure. 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 Baseline creatinine between 3 and 4. BUN and creatinine are higher today. Fluid balance is negative. He is on Lasix and metolazone but has no significant intake. Metolazone will be discontinued * Nephrotic syndrome * Diabetes mellitus * Cardiomyopathy * Hypertension Current Visit: Yes (2) Bilateral pneumonia Status: Acute Current Visit: Yes (3) Cardiomyopathy Status: Chronic Current Visit: Yes (4) Chronic kidney disease, stage IV (severe) Status: Chronic Current Visit: Yes (5) Diabetes Status: Chronic Current Visit: Yes Qualifiers: Diabetes mellitus type: type 1 Diabetes mellitus complication status: with kidney complications Diabetes mellitus complication detail: with chronic kidney disease Chronic kidney disease stage: stage 4 (severe) Qualified Code (s): E10.22 - Type 1 diabetes mellitus with diabetic chronic kidney disease; N18.4 - Chronic kidney disease, stage 4 (severe) (6) Hypertension Status: Chronic Current Visit: Yes
[2017-03-10] MEDS: INSULIN REGULAR 100 UNIT/ML SUBCUT SCH ×2 (12:05→18:20)
[2017-03-11] MEDS: INSULIN REGULAR 100 UNIT/ML SUBCUT SCH ×4 (00:51→18:31)
[2017-03-11 02:13] LABS: ABG Base Excess -0.8 MMOL/L (-2.5-2.5); ABG HCO3 23.4 MMOL/L (20-26); ABG PCO2 36.5 MM HG (35-48); ABG PH 7.424 (7.35-7.45); ABG PO2 184.3 MM HG (80-95); ABG TCO2 24.5 MMOL/L (23-27)
[2017-03-11] MEDS: ALBUTEROL/IPRATROPIUM 3 ML NEB RESP TX SCH ×6 (03:19→23:31)
[2017-03-11] MEDS: PROPOFOL 1,000 MG/100 ML BOTTLE IV SCH ×4 (03:30→14:05)
[2017-03-11 04:34] LABS: Basophils % 0.2 % (0.0-0.8); Eosinophils # 0.2 10*3/uL (0.0-0.87); Eosinophils % 2.1 % (0.00-10.9); Hemoglobin 8.6 GM/DL (14.0-18.0); Immature Granulocytes % 0.5 %; Immature Granulocytes Absolute 0.05 #; Lymphocytes # 1.3 10*3/uL (1.4-4.0); Lymphocytes % 11.9 % (21.2-54.2); Mean Corpuscular HGB Conc 33.1 GM/DL (32-36); Mean Corpuscular Hemoglobin 29 PG (27-34); Mean Corpuscular Volume 87.2 FL (87-102); Mean Platelet Volume 10.8 FL (9.6-12.0); Monocytes # 0.3 10*3/uL (0.11-0.8); Monocytes % 2.9 % (1.7-12.7); Neutrophils # 9.1 10*3/uL (1.4-7.4); Neutrophils % 82.4 % (38.7-73.9); Platelet Count 185 T/CUMM (130-400); Red Blood Count 2.98 MC/CUMM (3.8-5.5); White Blood Count 11.1 T/CUMM (4-12)
[2017-03-11 04:50] LABS: Partial Thromboplastin Time 40.7 SECS (0-40)
[2017-03-11 05:08] LABS: Phosphorous 5.9 MG/DL (2.5-4.9); Prealbumin 7.5 MG/DL (20-40)
[2017-03-11 05:14] LABS: Eosinophils 3 % (0-10); Lymphocytes 8 % (20-55); Segmented Neutrophils 88 % (50-85); Total Cells Counted 100
[2017-03-11 05:16] LABS: Hypochromasia 1+; Microcytosis 1+; Target Cells Slight
[2017-03-11 05:17] LABS: Polychromasia Slight
--- NOTE | 2017-03-11 06:32 | XRay Report ---
Referring Physician: Alfonso Quesada Exam: XR chest 1V portable Date: March 11, 2017 at 3:03 AM Reason: Ventilator Comparison: Chest one view portable March 10, 2017 Findings: An endotracheal tube is in place with its distal tip at the origin of the right mainstem bronchus. It is recommended that it be retracted at least 2 cm. A feeding tube is also in place with its distal tip curled upward within the gastric fundus. The cardiac silhouette is again mildly enlarged. There are mild scattered opacities within both lungs, left greater than right. This could represent pulmonary edema and/or pneumonia with atelectasis. No pneumothorax is identified, but there is mild left pleural fluid. The osseous structures appear stable. Impression: The distal tip of the endotracheal tube tube is now located at the origin of the right mainstem bronchus. It is recommended that it be retracted at least 2 cm. The study is otherwise similar to before. Findings and recommendations were discussed with the patient's nurse on March 10, 2017 at 6:30 AM. PROCEDURE INTERPRETED AT [facility] DEPARTMENT OF RADIOLOGY Final Report Signed by: Dr. Ronak Nielson
--- NOTE | 2017-03-11 06:45 | Cardiology Progress Note ---
Cardiology - PN: Subj Interval history: Cardiology note 61-year-old man with bilateral pneumonia and CHF. He completed 4 hours of CPAP yesterday. Telemetry shows sinus rhythm in the 60-70 range, no ectopy Blood pressure 120/70 O2 sat 100 on 50% FiO2 Regular rhythm distant heart tones, no murmur Decreased breath sounds with bibasilar rhonchi Trace leg edema Lab data today White count 11.1 hemoglobin 8.6 hematocrit 26.0 glucose 193 Impression Bilateral pneumonia Superimposed CHF Cardiomyopathy EF 20% and grade 3 diastolic dysfunction Status post splenectomy Insulin diabetic Plan Bronchoscopy today Tube feedings CPAP trials Continue IV antibiotics IV Lasix Exam (Progress Note) - Constitutional Vitals: Period Temp Pulse Resp BP Sys/Post Pulse Ox Last 24 Hr 97.0 F-98.2 F 57-75 10-21 95-124/55-72 99-100 Result/EKG - Labs CBC & BMP: 03/11/17 04:27 03/10/17 03:07 Labs: Laboratory Results - last 24 hr 03/10/17 03/10/17 03/10/17 11:52 18:07 23:26 WBC RBC Hgb Hct MCV MCH MCHC RDW Plt Count MPV Neut % (Auto) Lymph % (Auto) [place] % (Auto) Eos % (Auto) Baso % (Auto) Neut # (Auto) Lymph # (Auto) [place] # (Auto) Eos # (Auto) Baso # (Auto) Total Counted Immature Gran % Nucleated RBC % Immature Gran # Segmented Neutrophils Lymphocytes Monocytes Eosinophils Nucleated RBCs # Polychromasia Hypochromasia Microcytosis Target Cells INR PT Patient/Control Mix Circ Anticoag PTT ABG pH ABG pCO2 ABG pO2 ABG HCO3 ABG Total CO2 ABG O2 Saturation ABG Base Excess POC Glucose 179 H 191 H 158 H Phosphorus Prealbumin 03/11/17 03/11/17 03/11/17 02:00 04:27 04:27 WBC 11.1 D RBC 2.98 L Hgb 8.6 L Hct 26.0 L MCV 87.2 MCH 29 MCHC 33.1 RDW 18.0 H Plt Count 185 MPV 10.8 Neut % (Auto) 82.4 H Lymph % (Auto) 11.9 L [place] % (Auto) 2.9 Eos % (Auto) 2.1 Baso % (Auto) 0.2 Neut # (Auto) 9.1 H Lymph # (Auto) 1.3 L [place] # (Auto) 0.3 Eos # (Auto) 0.2 Baso # (Auto) 0.0 Total Counted 100 Immature Gran % 0.5 Nucleated RBC % 0.0 Immature Gran # 0.05 Segmented Neutrophils 88 H Lymphocytes 8 L Monocytes 1 L Eosinophils 3 Nucleated RBCs # 0.00 Polychromasia Slight Hypochromasia 1+ Microcytosis 1+ Target Cells Slight INR 1.0 PT Patient/Control Mix 11.0 Circ Anticoag PTT 40.7 H ABG pH 7.424 ABG pCO2 36.5 ABG pO2 184.3 H ABG HCO3 23.4 ABG Total CO2 24.5 ABG O2 Saturation 99.0 ABG Base Excess -0.8 POC Glucose Phosphorus Prealbumin 03/11/17 03/11/17 04:27 05:23 WBC RBC Hgb Hct MCV MCH MCHC RDW Plt Count MPV Neut % (Auto) Lymph % (Auto) [place] % (Auto) Eos % (Auto) Baso % (Auto) Neut # (Auto) Lymph # (Auto) [place] # (Auto) Eos # (Auto) Baso # (Auto) Total Counted Immature Gran % Nucleated RBC % Immature Gran # Segmented Neutrophils Lymphocytes Monocytes Eosinophils Nucleated RBCs # Polychromasia Hypochromasia Microcytosis Target Cells INR PT Patient/Control Mix Circ Anticoag PTT ABG pH ABG pCO2 ABG pO2 ABG HCO3 ABG Total CO2 ABG O2 Saturation ABG Base Excess POC Glucose 193 H Phosphorus 5.9 H Prealbumin 7.5 L
[2017-03-11] MEDS: PIPERACILLIN/TAZOBACTAM 3,375 MG in SODIUM CHLORIDE 0.9% 100 ML IV SCH ×2 (08:02→20:00)
--- NOTE | 2017-03-11 08:43 | Event Note ---
In hospital diagnostic and therapeutic fiberoptic bronchoscopy. Lavages from the right upper lung, right middle lung, right lower lung, left upper lung and left lower lung were sent for cytology, Gram stain, bacterial cultures, AFB stains and cultures, fungal stains and culture This is a 61-year-old male patient who was found down at home and unconscious with the blood sugar of 40. He required intubation mechanical ventilation. He has bibasilar atelectasis. His cough is been ineffective. It was suspected that he had aspirated. Endotracheal tube is in good position. Distal trachea was erythematous. The domenic was sharp. The right mainstem bronchus was full of thick tenacious secretions. These extended into the left upper lung, right middle lung and right lower lung. All of these lobes were suctioned until clear. There was a tremendous amount of thick tenacious sputum and multiple dense bronchial plugs. The collection apparatus showed bronchial casts. There were no endobronchial lesions to suggest cancer there was mild erosive friable bronchitis and moderately collapsible airways compatible with COPD. These specimens were sent for the studies mentioned above Left mainstem bronchus was full of thick tenacious secretions. These extended into the left upper lung and the left lower lung. The lingula was occluded with thick tenacious sputum plugs which required lavage to remove. There were similar less severe findings in the anterior segment and apical posterior segment of the left upper lung. These areas are also clean with bronchoalveolar lavage. Almost all of the subsegments of the left lower lung were occluded by thick tenacious sputum plugs. These were gradually removed with suction and lavage. In the left upper lung in the left lower lung there were areas of bronchitis that appear to be chronic there was mild to moderate collapsibility of the airways at appear to be secondary to COPD. There were no endobronchial lesions to suggest cancer. These specimens were submitted for the studies noted above. The collected specimen showed sputum plugs and bronchial casts. Patient tolerated procedure well there were no complications. Impression. 1. Mechanical ventilation. 2. Retained secretions 3. Ineffective cough 4. Generalized erosive bronchitis. This appeared to be secondary to chronic bronchitis. 5. No findings to suggest aspiration 6, mild to moderately collapsible large and small airways suggestive of underlying COPD
[2017-03-11] MEDS: CARVEDILOL 3.125 MG TABLET PO SCH ×2 (09:13→21:51)
[2017-03-11] MEDS: CYANOCOBALAMIN 500 MCG TABLET PO SCH (09:13)
[2017-03-11] MEDS: FOLIC ACID 1 MG TABLET PO SCH (09:14)
[2017-03-11] MEDS: metOLazone 5 MG TABLET PO SCH (09:14)
[2017-03-11] MEDS: LANSOPRAZOLE ODT 30 MG TABLET PER TUBE SCH (09:14)
[2017-03-11] MEDS: FUROSEMIDE 40 MG TABLET PO SCH (09:14)
[2017-03-11] MEDS: INSULIN NPH 100 UNIT/ML SUBCUT SCH ×2 (09:14→21:51)
[2017-03-11] MEDS: ASPIRIN CHEW 81 MG TABLET PO SCH (09:14)
--- NOTE | 2017-03-11 11:02 | Pulmonology Progress Note ---
Pulmonary - PN: Subj Interval history: This is a 61-year-old male whom I saw in pulmonary consultation on 03/08/2017. This patient been sent from an outside hospital with chest pain. His troponins were said to be elevated. He had respiratory failure for oxygen and required intubation mechanical ventilation. Patient had originally been found down at home. He had taken insulin but had not eaten and was told that his glucoses were 40. My impressions were. 1. Bilateral pneumonia. I think we have to cover for gram positives and gram- negative rods but I suspect this will sheet turner to be staph. 2. Adult respiratory distress syndrome most likely secondary to #1. Watch for congestive heart failure 3. History of heart disease with ejection fraction of 40% 4. Hypoglycemia. 5. Insulin-dependent diabetes mellitus 6. Chronic renal failure. 6. Anemia 7. Previous splenectomy. 8. Electrolyte abnormalities. 9. Calcium and phosphorus abnormalities. 10. See past history 03/09/2017. Today's chest x-ray shows 5 lobe bilateral infiltrates. On the right side these are a little less extensive a little less dense than before. There are no positive cultures. The patient's admit white blood cell count was 1300. Is now increased to 16,500 with 89 6. H&H is low at 9.8/29.6. Electrolytes normal. Creatinine is 4.2 with a BUN of 68. Natruretic peptide is elevated 1664. ABGs on mechanical ventilation FiO2 90% shows a pH 7.44, PCO2 33.4, PO2 has increased to 6 218.5 with a bicarb of 22.1. Doppler venograms done 03/08/2017 showed no evidence of deep venous thrombophlebitis. We do not know whether or not this patient aspirated. Once she is more stable I will evaluated with fiberoptic bronchoscopy. I anticipate this will be on 2016. This patient needs to be followed by renal. Meds have been reviewed. Labs been reviewed. Echocardiogram. 03/08/2017. Severe global hypokinesis with an estimated ejection fraction of 20%. Grade 3 diastolic dysfunction. The right ventricle is mildly dilated. There is bilateral atrial enlargement. There is mild pulmonary valve insufficiency. Pulmonary artery pressures are mildly elevated at 47 mmHg. There is a trace of aortic regurgitation. There is a trace of mitral regurgitation. 03/10/2017. Patient's chest x-ray is improved. He still has alveolar filling infiltrates in all 5 lobes of his lungs. There are air bronchograms present. This is a resolving pneumonia. He has no positive cultures. He has had an art like picture. His O2 is increased to a good bit and I am able to cut back his O2 sats today and will progress with his weaning protocol as he tolerates it. The patient has underlying heart disease his natruretic peptide to have fallen from 1989-. Echocardiogram showed severe global hypokinesis with ejection fraction of 20% and grade 3 diastolic dysfunction. There is a good chance part of his chest x-ray appearance was related to atypical pulmonary edema. Cardiology is on the case. Electrolytes are normal. Creatinine remains elevated at 4.5 with a BUN of 78. Glucoses are coming under better control. Thyroid function tests are normal. White count 16,500 with 96. H&H is gradually decreasing to 9.0/27.5 with a platelet count of 182,000. 03/11/2017. Today's chest x-ray shows atelectasis at the left base. Patient is not weaning as well as I want him to. He was evaluated with fiberoptic bronchoscopy. I did not see any definite evidence of aspiration. Patient however has underlying COPD and scattered 5 lobe erosive bronchitis and he had a tremendous amount of retained secretions. All his lobes were lavaged and specimens showed multiple bronchial casts. Multiple studies were submitted. The patient tolerated this procedure well. His sputum cultures from 03/09/2017 are growing a gram-negative nerissa. His Gram stain showed gram-positive cocci. There has been no ID and no sensitivities yet. White count is dropped to 11, 100 H&H stable 8.6/26.0. ABGs are stable allowing for the FiO2. Patient is now on stage III to weaning protocol and hopefully he will be able to progress faster now that a tremendous amount of retained secretions has been removed. Physical exam. Vital signs. See below Face is symmetrical. Lips and tongue are not swollen. Neck. Symmetrical. No meningismus Lymphatics. No submandibular cervical supraclavicular or epitrochlear adenopathy. Chest. Coarse large airway congestion has improved significant Heart. Lateral PMI Abdomen. Nondistended. Rare bowel sounds. Extremities. Poorly kept feet with chronic venous stasis The remainder the physical exam is noncontributory. Plan. 1. Mechanical ventilation. PEEP of 8 pressure support of 15 and high FiO2. 2. Agree with Zosyn. 3. Vancomycin. Consult pharmacology for renal adjustment 4. Sputum for Gram stain culture and sensitivity 5. Cold agglutinins. 03/09/2017, negative. 6. Legionella titer 7. Daily chest x-ray ABGs and lab 8. Doppler venograms of the lower extremities. We will out deep venous thrombophlebitis 9. Echocardiogram. See report. 10. Mechanical ventilation weaning protocol 11. Mechanical ventilation physical therapy protocol 12. Deep venous thrombophlebitis prevention protocol 13. Proton pump inhibitor protocol 14. 03/09/2017. Fiberoptic bronchoscopy tentatively scheduled for 03/11/2017. Cardiac ejection fraction is 20%. Need cardiology consultation. Creatinine is 4. Need renal consultation. Continue present antibiotics. Note the sputum and Legionella titers are pending. 15. 03/10/2017. Fiberoptic bronchoscopy on 03/11/2017. Weaning protocol. It appears the patient's only present antibiotic is Zosyn. Exam (Progress Note) - Constitutional Vitals: Period Temp Pulse Resp BP Sys/Post Pulse Ox Last 24 Hr 97.0 F-98.2 F 57-75 15-23 95-124/55-76 98-100 Results - Labs CBC & BMP: 03/11/17 04:27 03/10/17 03:07
--- NOTE | 2017-03-11 13:26 | Nephrology Progress Note ---
Nephrology - PN: Subj Interval history: He remains on the ventilator. Blood pressure is stable. Fluid balance negative Exam (PN)-Nephrology - Vital Signs Vital signs: Period Temp Pulse Resp BP Sys/Post Pulse Ox Last 24 Hr 98.2 F 57-75 15-23 95-124/55-76 98-100 Exam: ENT: Intubated Cardiovascular: Regular rate and rhythm. No murmur rub or gallop Lungs: Few scattered rhonchi Extremities: No edema - Lab 03/11/17 04:27 03/10/17 03:07 Most recent lab results ABG pH 7.424 (7.35-7.45) 03/11/17 02:00 ABG pCO2 36.5 MM HG (35-48) 03/11/17 02:00 ABG pO2 184.3 MM HG (80-95) H 03/11/17 02:00 ABG HCO3 23.4 MMOL/L (20-26) 03/11/17 02:00 ABG O2 Saturation 99.0 % (95-100) 03/11/17 02:00 Calcium 6.9 MG/DL (8.5-10.1) L 03/10/17 03:07 Phosphorus 5.9 MG/DL (2.5-4.9) H 03/11/17 04:27 Magnesium 2.3 MG/DL (1.8-2.4) 03/10/17 03:07 Assessment and Plan (1) Acute hypoxemic respiratory failure Status: Acute Assessment and plan: 61-year-old man admitted with: * Bilateral pneumonia. Ventilatory failure. 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 Baseline creatinine between 3 and 4. Renal function is worse. Fluid balance has been negative. Diuretic will be decreased * Nephrotic syndrome * Diabetes mellitus * Cardiomyopathy * Hypertension Current Visit: Yes (2) Bilateral pneumonia Status: Acute Current Visit: Yes (3) Cardiomyopathy Status: Chronic Current Visit: Yes (4) Chronic kidney disease, stage IV (severe) Status: Chronic Current Visit: Yes (5) Diabetes Status: Chronic Current Visit: Yes Qualifiers: Diabetes mellitus type: type 1 Diabetes mellitus complication status: with kidney complications Diabetes mellitus complication detail: with chronic kidney disease Chronic kidney disease stage: stage 4 (severe) Qualified Code (s): E10.22 - Type 1 diabetes mellitus with diabetic chronic kidney disease; N18.4 - Chronic kidney disease, stage 4 (severe) (6) Hypertension Status: Chronic Current Visit: Yes
--- NOTE | 2017-03-11 15:49 | Hospitalist Progress Note ---
Assessment and Plan (1) Congestive heart failure Status: Acute Current Visit: Yes Qualifiers: Congestive heart failure type: unspecified congestive heart failure type Congestive heart failure chronicity: acute on chronic Qualified Code(s): I50.9 - Heart failure, unspecified (2) Diabetes Status: Chronic Current Visit: Yes Qualifiers: Diabetes mellitus type: type 1 Diabetes mellitus complication status: with kidney complications Diabetes mellitus complication detail: with chronic kidney disease Chronic kidney disease stage: stage 4 (severe) Qualified Code (s): E10.22 - Type 1 diabetes mellitus with diabetic chronic kidney disease; N18.4 - Chronic kidney disease, stage 4 (severe) (3) Chronic kidney disease, stage IV (severe) Status: Chronic Current Visit: Yes (4) Bilateral pneumonia Status: Acute Current Visit: Yes (5) Acute hypoxemic respiratory failure Status: Acute Current Visit: Yes (6) Hypoglycemia Status: Resolved Current Visit: Yes Hospitalist: Subjective Interval history: Bronch today. Pulmonary assisting. Patient on zosyn. Vancomycin was discontinued. Sputum cultures growing gram negative rods. Leukocytosis resolved. Exam - Constitutional Vitals: Period Temp Pulse Resp BP Sys/Post Pulse Ox Last 24 Hr 96.5 F-98.2 F 57-75 14-23 95-126/55-80 98-100 General appearance: over weight - Head Head exam: Present: normocephalic, atraumatic - Eye Eye exam: Present: EOMI Pupils: Present: ASHLY - ENT ENT exam: Present: normal exam - Neck Neck exam: Present: normal inspection - Respiratory Respiratory exam: Present: clear to auscultation bilaterally. Absent: rhonchi, wheezes - Cardiovascular Cardiovascular exam: Present: regular rate and rhythm - GI/Abdominal GI/Abdominal exam: Present: normal bowel sounds, soft. Absent: tenderness, rebound - Extremities Exam Extremities exam: Present: normal inspection - Back Exam Back exam: Present: normal inspection - Skin Skin exam: Present: warm, intact Results - Labs CBC & BMP: 03/11/17 04:27 03/10/17 03:07
[2017-03-12] MEDS: PROPOFOL 1,000 MG/100 ML BOTTLE IV SCH ×5 (00:03→23:45)
[2017-03-12] MEDS: INSULIN REGULAR 100 UNIT/ML SUBCUT SCH ×4 (00:22→18:16)
[2017-03-12] MEDS: ALBUTEROL/IPRATROPIUM 3 ML NEB RESP TX SCH ×6 (03:36→23:42)
[2017-03-12 03:55] LABS: ABG Base Excess -0.7 MMOL/L (-2.5-2.5); ABG HCO3 23.8 MMOL/L (20-26); ABG Oxygen Saturation 99.7 % (95-100); ABG PCO2 36.4 MM HG (35-48); ABG PH 7.417 (7.35-7.45); ABG TCO2 21.4 MMOL/L (23-27); Pt O2 Delivery Device Ventilator
[2017-03-12 05:38] LABS: Basophils % 0.1 % (0.0-0.8); Eosinophils # 0.2 10*3/uL (0.0-0.87); Hemoglobin 9.1 GM/DL (14.0-18.0); Immature Granulocytes % 0.3 %; Immature Granulocytes Absolute 0.02 #; Lymphocytes # 0.8 10*3/uL (1.4-4.0); Lymphocytes % 11.1 % (21.2-54.2); Mean Corpuscular HGB Conc 32.5 GM/DL (32-36); Mean Corpuscular Hemoglobin 29 PG (27-34); Mean Corpuscular Volume 88.9 FL (87-102); Mean Platelet Volume 10.7 FL (9.6-12.0); Monocytes # 0.4 10*3/uL (0.11-0.8); Monocytes % 4.8 % (1.7-12.7); NRBC # 0.03 10*3/uL; Neutrophils # 6.1 10*3/uL (1.4-7.4); Neutrophils % 81.7 % (38.7-73.9); Platelet Count 192 T/CUMM (130-400); Red Blood Count 3.15 MC/CUMM (3.8-5.5); White Blood Count 7.5 T/CUMM (4-12)
[2017-03-12 06:06] LABS: Calcium 6.8 MG/DL (8.5-10.1); Magnesium 3.3 MG/DL (1.8-2.4); Osmolality,Calculated 306.8 MOS/KG (273-304)
[2017-03-12 06:12] LABS: Phosphorous 5.9 MG/DL (2.5-4.9); Prealbumin 9.9 MG/DL (20-40)
--- NOTE | 2017-03-12 06:35 | XRay Report ---
Referring Physician: Alfonso Quesada Exam: XR chest 1V portable Date: March 12, 2017 at 3:08 AM Reason: Ventilator Comparison: Chest one view portable March 11, 2017 Findings: The distal tip of the endotracheal tube is located at the level of the aortic arch, approximately 3 cm above the domenic. A feeding tube is again in place with its distal tip within the gastric fundus. The cardiac silhouette is again mildly enlarged. There are mild scattered opacities within both lungs, mainly at the lung bases. This could represent mild pulmonary edema or pneumonia with atelectasis. No pneumothorax is identified, but there is likely minimal left pleural fluid. The osseous structures appear stable. Impression: 1. The distal tip of the endotracheal tube is now located at the level of the aortic arch, approximately 3 cm above the domenic. 2. There is slight improved aeration of the left lung with probable decreased left pleural fluid. The study is otherwise similar to before. PROCEDURE INTERPRETED AT [facility] DEPARTMENT OF RADIOLOGY Final Report Signed by: Dr. Ronak Nielson
--- NOTE | 2017-03-12 06:52 | Cardiology Progress Note ---
Cardiology - PN: Subj Interval history: Cardiology note 61 year-old man with bilateral pneumonia and superimposed CHF He only completed 2 hours of CPAP yesterday. O2 sat 100 on 50% FiO2 Telemetry shows sinus rhythm at 60-70 range rare PVCs Blood pressure 100/57 off levo fed Regular rhythm no murmur Decreased breath sounds rhonchi in the right base Abdomen soft Trace leg edema Lab data today White count 7.5 hemoglobin 9.1 hematocrit 28.0 Sodium 137 potassium 4.0 chloride 101 CO2 25 BUN 100 creatinine 4.60 Glucose 147 Impression Bilateral pneumonia Superimposed CHF ejection fraction 20% with grade 3 diastolic dysfunction Insulin-dependent diabetic Status post splenectomy Plan tube feedings CPAP trials IV antibiotics IV Lasix Exam (Progress Note) - Constitutional Vitals: Period Temp Pulse Resp BP Sys/Post Pulse Ox Last 24 Hr 96.5 F-98.6 F 61-71 14-24 99-127/57-80 98-100 Result/EKG - Labs CBC & BMP: 03/12/17 05:03 03/12/17 05:03 Labs: Laboratory Results - last 24 hr 03/11/17 03/11/17 03/12/17 12:29 17:32 00:13 WBC RBC Hgb Hct MCV MCH MCHC RDW Plt Count MPV Neut % (Auto) Lymph % (Auto) [place] % (Auto) Eos % (Auto) Baso % (Auto) Neut # (Auto) Lymph # (Auto) [place] # (Auto) Eos # (Auto) Baso # (Auto) Immature Gran % Nucleated RBC % Immature Gran # Nucleated RBCs # ABG pH ABG pCO2 ABG pO2 ABG HCO3 ABG Total CO2 ABG O2 Saturation ABG Base Excess FiO2 Sodium Potassium Chloride Carbon Dioxide Anion Gap BUN Creatinine GFR Calculation BUN/Creatinine Ratio Glucose POC Glucose 172 H 188 H 198 H Calculated Osmolality Calcium Phosphorus Magnesium Prealbumin 03/12/17 03/12/17 03/12/17 03:35 05:03 05:03 WBC 7.5 D RBC 3.15 L Hgb 9.1 L Hct 28.0 L MCV 88.9 MCH 29 MCHC 32.5 RDW 18.0 H Plt Count 192 MPV 10.7 Neut % (Auto) 81.7 H Lymph % (Auto) 11.1 L [place] % (Auto) 4.8 Eos % (Auto) 2.0 Baso % (Auto) 0.1 Neut # (Auto) 6.1 Lymph # (Auto) 0.8 L [place] # (Auto) 0.4 Eos # (Auto) 0.2 Baso # (Auto) 0.0 Immature Gran % 0.3 Nucleated RBC % 0.4 Immature Gran # 0.02 Nucleated RBCs # 0.03 ABG pH 7.417 ABG pCO2 36.4 ABG pO2 181.0 H ABG HCO3 23.8 ABG Total CO2 21.4 L ABG O2 Saturation 99.7 ABG Base Excess -0.7 FiO2 50.00 Sodium 137 Potassium 4.0 Chloride 101 Carbon Dioxide 25 Anion Gap 15.0 BUN 100 H Creatinine 4.60 H GFR Calculation 15 BUN/Creatinine Ratio 21.00 H Glucose 152 H POC Glucose Calculated Osmolality 306.8 H Calcium 6.8 L Phosphorus Magnesium 3.3 H Prealbumin 03/12/17 03/12/17 05:03 05:36 WBC RBC Hgb Hct MCV MCH MCHC RDW Plt Count MPV Neut % (Auto) Lymph % (Auto) [place] % (Auto) Eos % (Auto) Baso % (Auto) Neut # (Auto) Lymph # (Auto) [place] # (Auto) Eos # (Auto) Baso # (Auto) Immature Gran % Nucleated RBC % Immature Gran # Nucleated RBCs # ABG pH ABG pCO2 ABG pO2 ABG HCO3 ABG Total CO2 ABG O2 Saturation ABG Base Excess FiO2 Sodium Potassium Chloride Carbon Dioxide Anion Gap BUN Creatinine GFR Calculation BUN/Creatinine Ratio Glucose POC Glucose 147 H Calculated Osmolality Calcium Phosphorus 5.9 H Magnesium Prealbumin 9.9 L
--- NOTE | 2017-03-12 09:24 | Hospitalist Progress Note ---
Assessment and Plan (1) Congestive heart failure Status: Acute Current Visit: Yes Qualifiers: Congestive heart failure type: unspecified congestive heart failure type Congestive heart failure chronicity: acute on chronic Qualified Code(s): I50.9 - Heart failure, unspecified (2) Diabetes Status: Chronic Current Visit: Yes Qualifiers: Diabetes mellitus type: type 1 Diabetes mellitus complication status: with kidney complications Diabetes mellitus complication detail: with chronic kidney disease Chronic kidney disease stage: stage 4 (severe) Qualified Code (s): E10.22 - Type 1 diabetes mellitus with diabetic chronic kidney disease; N18.4 - Chronic kidney disease, stage 4 (severe) (3) Chronic kidney disease, stage IV (severe) Status: Chronic Current Visit: Yes (4) Bilateral pneumonia Status: Acute Current Visit: Yes (5) Acute hypoxemic respiratory failure Status: Acute Current Visit: Yes (6) Hypoglycemia Status: Resolved Current Visit: Yes Hospitalist: Subjective Interval history: No acute events overnight. Weaning protocol. Pulmonary managing. Leukocytosis continues to improve. Continue zosyn. F/u sputum cultures Exam - Constitutional Vitals: Period Temp Pulse Resp BP Sys/Pots Pulse Ox Last 24 Hr 97.1 F-98.6 F 61-71 14-24 99-127/57-80 98-100 General appearance: over weight - Head Head exam: Present: normocephalic, atraumatic - Eye Eye exam: Present: EOMI Pupils: Present: ASHLY - ENT ENT exam: Present: normal exam - Neck Neck exam: Present: normal inspection - Respiratory Respiratory exam: Present: decreased breath sounds. Absent: wheezes - Cardiovascular Cardiovascular exam: Present: regular rate and rhythm - GI/Abdominal GI/Abdominal exam: Present: normal bowel sounds, soft. Absent: tenderness, rebound - Extremities Exam Extremities exam: Present: normal inspection - Back Exam Back exam: Present: normal inspection - Neurological Exam Neurological exam: Present: alert - Psychiatric Psychiatric exam: Present: normal affect, normal mood - Skin Skin exam: Present: warm, intact Results - Labs CBC & BMP: 03/12/17 05:03 03/12/17 05:03
[2017-03-12] MEDS: CYANOCOBALAMIN 500 MCG TABLET PO SCH (09:37)
[2017-03-12] MEDS: FOLIC ACID 1 MG TABLET PO SCH (09:38)
[2017-03-12] MEDS: ASPIRIN CHEW 81 MG TABLET PO SCH (09:38)
[2017-03-12] MEDS: FUROSEMIDE 40 MG TABLET PO SCH (09:38)
[2017-03-12] MEDS: CARVEDILOL 3.125 MG TABLET PO SCH ×2 (09:38→21:34)
[2017-03-12] MEDS: LANSOPRAZOLE ODT 30 MG TABLET PER TUBE SCH (09:38)
[2017-03-12] MEDS: INSULIN NPH 100 UNIT/ML SUBCUT SCH ×3 (09:39→21:34)
[2017-03-12] MEDS: PIPERACILLIN/TAZOBACTAM 3,375 MG in SODIUM CHLORIDE 0.9% 100 ML IV SCH ×2 (09:46→19:57)
--- NOTE | 2017-03-12 11:16 | Pathology Report from [facility] ---
ACCESSION # : [id number] PATIENT NAME : Juan Miguel Mantilla ORDERING DR : PEPE CANO MD CLINICAL HX: Respiratory Arrest POST-OP DX: Same SPECIMEN INFO: Washing,Bronchial,NELLY - 20 ml's frothy, dark brewer, cloudy. CLASS: I CLASS COMMENTS: Marked acute inflammation with a few benign respiratory cells CELL BLOCK: Same CLASS LEGEND: CLASS 0 Material inadequate for diagnosis because of (see comment) CLASS I Absence of atypical or abnormal cells CLASS II Atypical Cytology but no evidence of malignancy CLASS III Cytology suggestive of but not conclusive for malignancy CLASS IV Cytology strongly suggestive of malignancy CLASS V Cytology conclusive for malignancy SERVICE DATE: 03/11/2017 REPORT DATE: 03/12/2017 PATHOLOGIST: Cali Abdi III, M.D. MTDD
--- NOTE | 2017-03-12 11:46 | Pulmonology Progress Note ---
Pulmonary - PN: Subj Interval history: Dionte Johsnon, ANP-BC, GNP-BC, acting as scribe for Dr. Alfonso Quesada This is a 61-year-old male who we saw in initial pulmonary consultation on 03/08/2017. This patient had been sent from an outside hospital with chest pain. His troponins were said to be elevated. He had respiratory failure for oxygen and required intubation and mechanical ventilation. Patient had originally been found down at home. He had taken insulin but had not eaten and was told that his glucoses were 40. At the time of our initial consult, our impressions were: 1. Bilateral pneumonia. I think we have to cover for gram positives and gram- negative rods but I suspect this will turn out worker to be staph. 2. Adult respiratory distress syndrome most likely secondary to #1. Watch for congestive heart failure 3. History of heart disease with ejection fraction of 40% 4. Hypoglycemia. 5. Insulin-dependent diabetes mellitus 6. Chronic renal failure. 6. Anemia 7. Previous splenectomy. 8. Electrolyte abnormalities. 9. Calcium and phosphorus abnormalities. 10. See past history 03/09/2017. Today's chest x-ray shows 5 lobe bilateral infiltrates. On the right side these are a little less extensive a little less dense than before. There are no positive cultures. The patient's admit white blood cell count was 1300. Is now increased to 16,500 with 89 6. H&H is low at 9.8/29.6. Electrolytes normal. Creatinine is 4.2 with a BUN of 68. Natruretic peptide is elevated 1664. ABGs on mechanical ventilation FiO2 90% shows a pH 7.44, PCO2 33.4, PO2 has increased to 6 218.5 with a bicarb of 22.1. Doppler venograms done 03/08/2017 showed no evidence of deep venous thrombophlebitis. We do not know whether or not this patient aspirated. Once she is more stable I will evaluated with fiberoptic bronchoscopy. I anticipate this will be on 2016. This patient needs to be followed by renal. Meds have been reviewed. Labs been reviewed. Echocardiogram. 03/08/2017. Severe global hypokinesis with an estimated ejection fraction of 20%. Grade 3 diastolic dysfunction. The right ventricle is mildly dilated. There is bilateral atrial enlargement. There is mild pulmonary valve insufficiency. Pulmonary artery pressures are mildly elevated at 47 mmHg. There is a trace of aortic regurgitation. There is a trace of mitral regurgitation. 03/10/2017. Patient's chest x-ray is improved. He still has alveolar filling infiltrates in all 5 lobes of his lungs. There are air bronchograms present. This is a resolving pneumonia. He has no positive cultures. He has had an art like picture. His O2 is increased to a good bit and I am able to cut back his O2 sats today and will progress with his weaning protocol as he tolerates it. The patient has underlying heart disease his natruretic peptide to have fallen from 1989-. Echocardiogram showed severe global hypokinesis with ejection fraction of 20% and grade 3 diastolic dysfunction. There is a good chance part of his chest x-ray appearance was related to atypical pulmonary edema. Cardiology is on the case. Electrolytes are normal. Creatinine remains elevated at 4.5 with a BUN of 78. Glucoses are coming under better control. Thyroid function tests are normal. White count 16,500 with 96. H&H is gradually decreasing to 9.0/27.5 with a platelet count of 182,000. 03/11/2017. Today's chest x-ray shows atelectasis at the left base. Patient is not weaning as well as I want him to. He was evaluated with fiberoptic bronchoscopy. I did not see any definite evidence of aspiration. Patient however has underlying COPD and scattered 5 lobe erosive bronchitis and he had a tremendous amount of retained secretions. All his lobes were lavaged and specimens showed multiple bronchial casts. Multiple studies were submitted. The patient tolerated this procedure well. His sputum cultures from 03/09/2017 are growing a gram-negative nerissa. His Gram stain showed gram-positive cocci. There has been no ID and no sensitivities yet. White count is dropped to 11, 100 H&H stable 8.6/26.0. ABGs are stable allowing for the FiO2. Patient is now on stage III to weaning protocol and hopefully he will be able to progress faster now that a tremendous amount of retained secretions has been removed. 03/12/2017. The patient underwent fiberoptic bronchoscopy yesterday. Bronchoscopy Gram stain showed few gram-positive cocci and many white blood cells. Sputum culture obtained 03/09/2017 is growing a gram-negative nerissa. Identification and sensitivities are pending. He is presently on Zosyn. Blood cultures are negative at day 3. Yesterday he was on stage III of the weaning process and completed approximately 1-1/2 hours. We are continuing to wean as tolerated. Medications have been reviewed. We made no changes today. Labs have been reviewed. White count is 7500 with 81.7% segs; H&H 9.1/28.0; platelet count 192,000; creatinine 4.60, BUN 100; electrolytes are normal; calcium is low at 6.8, magnesium 3.3 ABGs this morning on an FiO2 of 50% on mechanical ventilation showed pH of 7.417 , PCO2 36.4, PO2 181.0, bicarb 23.8, and oxygen saturation 99.7%. Exam (Progress Note) - Constitutional Vitals: Period Temp Pulse Resp BP Sys/Post Pulse Ox Last 24 Hr 97.1 F-98.6 F 61-71 8-29 99-127/57-80 98-100 Exam: Chest with improved coarse large airway congestion Heart with a lateral PMI Abdomen is nondistended; rare bowel sounds Extremities with chronic venous stasis; nothing to suggest acute deep venous thrombophlebitis Psychiatric/neurologic unchanged; of note, the patient's nurse states he is able to wake up and follow commands Plan: Continue on the weaning protocol. Continue present medications. Await final identification and sensitivities to be reported on sputum that was obtained 03/09/2017. Daily chest x-ray and ABGs while on the ventilator. See orders. Results - Labs CBC & BMP: 03/12/17 05:03 03/12/17 05:03
--- NOTE | 2017-03-12 16:22 | Nephrology Progress Note ---
Nephrology - PN: Subj Interval history: He remains on the ventilator. Blood pressure stable Exam (PN)-Nephrology - Vital Signs Vital signs: Period Temp Pulse Resp BP Sys/Post Pulse Ox Last 24 Hr 97.5 F-98.6 F 63-76 8-29 99-126/57-77 98-100 Exam: ENT: Normal Cardiovascular: Regular rate and rhythm. No murmur rub or gallop Lungs: Few rhonchi Extremities: No edema - Lab 03/12/17 05:03 03/12/17 05:03 Most recent lab results ABG pH 7.417 (7.35-7.45) 03/12/17 03:35 ABG pCO2 36.4 MM HG (35-48) 03/12/17 03:35 ABG pO2 181.0 MM HG (80-95) H 03/12/17 03:35 ABG HCO3 23.8 MMOL/L (20-26) 03/12/17 03:35 ABG O2 Saturation 99.7 % (95-100) 03/12/17 03:35 Calcium 6.8 MG/DL (8.5-10.1) L 03/12/17 05:03 Phosphorus 5.9 MG/DL (2.5-4.9) H 03/12/17 05:03 Magnesium 3.3 MG/DL (1.8-2.4) H 03/12/17 05:03 Assessment and Plan (1) Acute hypoxemic respiratory failure Status: Acute Assessment and plan: 61-year-old man admitted with: * Bilateral pneumonia. Ventilatory failure. 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 Baseline creatinine between 3 and 4. Renal function stable * Nephrotic syndrome * Diabetes mellitus * Cardiomyopathy * Hypertension Current Visit: Yes (2) Bilateral pneumonia Status: Acute Current Visit: Yes (3) Cardiomyopathy Status: Chronic Current Visit: Yes (4) Chronic kidney disease, stage IV (severe) Status: Chronic Current Visit: Yes (5) Diabetes Status: Chronic Current Visit: Yes Qualifiers: Diabetes mellitus type: type 1 Diabetes mellitus complication status: with kidney complications Diabetes mellitus complication detail: with chronic kidney disease Chronic kidney disease stage: stage 4 (severe) Qualified Code (s): E10.22 - Type 1 diabetes mellitus with diabetic chronic kidney disease; N18.4 - Chronic kidney disease, stage 4 (severe) (6) Hypertension Status: Chronic Current Visit: Yes
[2017-03-13] MEDS: INSULIN REGULAR 100 UNIT/ML SUBCUT SCH ×4 (00:48→18:28)
[2017-03-13] MEDS: ALBUTEROL/IPRATROPIUM 3 ML NEB RESP TX SCH ×6 (03:26→23:02)
[2017-03-13 03:33] LABS: ABG Base Excess -0.4 MMOL/L (-2.5-2.5); ABG HCO3 23.9 MMOL/L (20-26); ABG Oxygen Saturation 98.8 % (95-100); ABG PCO2 37.8 MM HG (35-48); ABG PH 7.419 (7.35-7.45); ABG PO2 164.3 MM HG (80-95); ABG TCO2 25.1 MMOL/L (23-27); Allen Test Positive; Pt O2 Delivery Device Ventilator
[2017-03-13 06:07] LABS: Basophils % 0.2 % (0.0-0.8); Eosinophils # 0.2 10*3/uL (0.0-0.87); Eosinophils % 2.3 % (0.00-10.9); Hematocrit 27.2 VOL% (42.0-52.0); Hemoglobin 8.8 GM/DL (14.0-18.0); Immature Granulocytes Absolute 0.08 #; Lymphocytes # 0.9 10*3/uL (1.4-4.0); Lymphocytes % 10.3 % (21.2-54.2); Mean Corpuscular HGB Conc 32.4 GM/DL (32-36); Mean Corpuscular Hemoglobin 29 PG (27-34); Mean Platelet Volume 10.9 FL (9.6-12.0); Monocytes # 0.6 10*3/uL (0.11-0.8); Monocytes % 7.3 % (1.7-12.7); NRBC # 0.04 10*3/uL; Neutrophils # 6.5 10*3/uL (1.4-7.4); Neutrophils % 78.9 % (38.7-73.9); Platelet Count 198 T/CUMM (130-400); Red Blood Count 3.09 MC/CUMM (3.8-5.5); Red Cell Distribution Width 18.3 % (9.3-17.3); White Blood Count 8.2 T/CUMM (4-12)
[2017-03-13] MEDS: PROPOFOL 1,000 MG/100 ML BOTTLE IV SCH ×5 (06:38→22:29)
[2017-03-13 06:42] LABS: Calcium 6.7 MG/DL (8.5-10.1); Magnesium 3.6 MG/DL (1.8-2.4); Osmolality,Calculated 309.5 MOS/KG (273-304); Potassium 4.3 MMOL/L (3.5-5.1)
--- NOTE | 2017-03-13 06:50 | Cardiology Progress Note ---
Cardiology - PN: Subj Interval history: Cardiology note 61 year-old man with bilateral pneumonia and superimposed CHF He completed 15 hours CPAP yesterday Telemetry shows sinus rhythm at 70-80 range- Blood pressure 115/65 O2 sat 100 on 50% FiO2 Regular rhythm no murmur Decreased breath sounds few scattered rhonchi Abdomen soft benign Trace leg edema Lab data today White count 8.2 hemoglobin 8.8 hematocrit 27.2 glucose 94 BMP pending Impression Bilateral pneumonia Superimposed CHF EF 20% by recent echo with grade 3 diastolic dysfunction Insulin-dependent diabetes Status post splenectomy Plan CPAP trials Tube feedings IV antibiotics IV Lasix Exam (Progress Note) - Constitutional Vitals: Period Temp Pulse Resp BP Sys/Post Pulse Ox Last 24 Hr 97.5 F-99.0 F 68-77 8-29 105-129/56-75 98-100 Result/EKG - Labs CBC & BMP: 03/13/17 05:48 03/13/17 05:48 Labs: Laboratory Results - last 24 hr 03/12/17 03/12/17 03/13/17 11:26 18:05 00:33 WBC RBC Hgb Hct MCV MCH MCHC RDW Plt Count MPV Neut % (Auto) Lymph % (Auto) [place] % (Auto) Eos % (Auto) Baso % (Auto) Neut # (Auto) Lymph # (Auto) [place] # (Auto) Eos # (Auto) Baso # (Auto) Immature Gran % Nucleated RBC % Immature Gran # Nucleated RBCs # ABG pH ABG pCO2 ABG pO2 ABG HCO3 ABG Total CO2 ABG O2 Saturation ABG Base Excess FiO2 Sodium Potassium Chloride Carbon Dioxide Anion Gap BUN Creatinine GFR Calculation BUN/Creatinine Ratio Glucose POC Glucose 196 H 220 H 204 H Calculated Osmolality Calcium Magnesium 03/13/17 03/13/17 03/13/17 03:15 05:48 05:48 WBC 8.2 RBC 3.09 L Hgb 8.8 L Hct 27.2 L MCV 88.0 MCH 29 MCHC 32.4 RDW 18.3 H Plt Count 198 MPV 10.9 Neut % (Auto) 78.9 H Lymph % (Auto) 10.3 L [place] % (Auto) 7.3 Eos % (Auto) 2.3 Baso % (Auto) 0.2 Neut # (Auto) 6.5 Lymph # (Auto) 0.9 L [place] # (Auto) 0.6 Eos # (Auto) 0.2 Baso # (Auto) 0.0 Immature Gran % 1.0 Nucleated RBC % 0.5 Immature Gran # 0.08 Nucleated RBCs # 0.04 ABG pH 7.419 ABG pCO2 37.8 ABG pO2 164.3 H ABG HCO3 23.9 ABG Total CO2 25.1 ABG O2 Saturation 98.8 ABG Base Excess -0.4 FiO2 50.00 Sodium 139 Potassium 4.3 Chloride 102 Carbon Dioxide 24 Anion Gap 17.3 H BUN 108 H Creatinine 5.10 H GFR Calculation 13 BUN/Creatinine Ratio 21.00 H Glucose 87 POC Glucose Calculated Osmolality 309.5 H Calcium 6.7 L Magnesium 3.6 H 03/13/17 06:35 WBC RBC Hgb Hct MCV MCH MCHC RDW Plt Count MPV Neut % (Auto) Lymph % (Auto) [place] % (Auto) Eos % (Auto) Baso % (Auto) Neut # (Auto) Lymph # (Auto) [place] # (Auto) Eos # (Auto) Baso # (Auto) Immature Gran % Nucleated RBC % Immature Gran # Nucleated RBCs # ABG pH ABG pCO2 ABG pO2 ABG HCO3 ABG Total CO2 ABG O2 Saturation ABG Base Excess FiO2 Sodium Potassium Chloride Carbon Dioxide Anion Gap BUN Creatinine GFR Calculation BUN/Creatinine Ratio Glucose POC Glucose 94 Calculated Osmolality Calcium Magnesium
--- NOTE | 2017-03-13 07:19 | XRay Report ---
XR chest 1V portable Indication: Ventilator patient Comparison: 12 March 2017 Findings: The heart and mediastinum are stable in size and configuration. Lines and tubes are unchanged in position. The pulmonary vascularity is slightly increased with bilateral increased interstitial lung density. No other lung infiltrates, effusions, pneumothorax or other abnormality is demonstrated. Impression: Findings suggest mild cardiac decompensation. PROCEDURE INTERPRETED AT [facility] ([facility]) DEPARTMENT OF RADIOLOGY Final Report Signed by: Dr. Carlos Eduardo Matamoros
[2017-03-13] MEDS: LANSOPRAZOLE ODT 30 MG TABLET PER TUBE SCH (08:48)
[2017-03-13] MEDS: FOLIC ACID 1 MG TABLET PO SCH (08:48)
[2017-03-13] MEDS: FUROSEMIDE 40 MG TABLET PO SCH (08:48)
[2017-03-13] MEDS: PIPERACILLIN/TAZOBACTAM 3,375 MG in SODIUM CHLORIDE 0.9% 100 ML IV SCH ×2 (08:48→21:37)
[2017-03-13] MEDS: CARVEDILOL 3.125 MG TABLET PO SCH ×2 (08:48→21:41)
[2017-03-13] MEDS: ASPIRIN CHEW 81 MG TABLET PO SCH (08:48)
[2017-03-13] MEDS: CYANOCOBALAMIN 500 MCG TABLET PO SCH (08:50)
[2017-03-13] MEDS: INSULIN NPH 100 UNIT/ML SUBCUT SCH ×2 (09:10→21:41)
--- NOTE | 2017-03-13 10:31 | Hospitalist Progress Note ---
Assessment and Plan (1) Congestive heart failure Status: Acute Current Visit: Yes Qualifiers: Congestive heart failure type: unspecified congestive heart failure type Congestive heart failure chronicity: acute on chronic Qualified Code(s): I50.9 - Heart failure, unspecified (2) Diabetes Status: Chronic Current Visit: Yes Qualifiers: Diabetes mellitus type: type 1 Diabetes mellitus complication status: with kidney complications Diabetes mellitus complication detail: with chronic kidney disease Chronic kidney disease stage: stage 4 (severe) Qualified Code (s): E10.22 - Type 1 diabetes mellitus with diabetic chronic kidney disease; N18.4 - Chronic kidney disease, stage 4 (severe) (3) Chronic kidney disease, stage IV (severe) Status: Chronic Current Visit: Yes (4) Bilateral pneumonia Status: Acute Current Visit: Yes (5) Acute hypoxemic respiratory failure Status: Acute Current Visit: Yes (6) Hypoglycemia Status: Resolved Current Visit: Yes Hospitalist: Subjective Interval history: No acute events overnight. Will awake and follow commands. Undergoing CPAP trials. Pulmonary managing. On zosyn for bilateral pneumonia. Cardiology following for recent UT and cardiomyopathy. Nephrology following for CKD. Exam - Constitutional Vitals: Period Temp Pulse Resp BP Sys/Post Pulse Ox Last 24 Hr 97.5 F-99.0 F 68-77 8-29 105-131/56-75 98-100 General appearance: over weight - Head Head exam: Present: normocephalic, atraumatic - Eye Eye exam: Present: EOMI Pupils: Present: ASHLY - ENT ENT exam: Present: normal exam - Neck Neck exam: Present: normal inspection - Respiratory Respiratory exam: Present: clear to auscultation bilaterally. Absent: rhonchi, wheezes - Cardiovascular Cardiovascular exam: Present: regular rate and rhythm - GI/Abdominal GI/Abdominal exam: Present: normal bowel sounds, soft. Absent: tenderness, rebound - Extremities Exam Extremities exam: Present: normal inspection - Back Exam Back exam: Present: normal inspection - Neurological Exam Neurological exam: Present: alert, other (follows commands) - Skin Skin exam: Present: warm, intact Results - Labs CBC & BMP: 03/13/17 05:48 03/13/17 05:48
--- NOTE | 2017-03-13 10:45 | Pulmonology Progress Note ---
Pulmonary - PN: Subj Interval history: This is a 61-year-old male whom I saw in pulmonary consultation on 03/08/2017. This patient been sent from an outside hospital with chest pain. His troponins were said to be elevated. He had respiratory failure for oxygen and required intubation mechanical ventilation. Patient had originally been found down at home. He had taken insulin but had not eaten and was told that his glucoses were 40. My impressions were. 1. Bilateral pneumonia. 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 2. Adult respiratory distress syndrome most likely secondary to #1. Watch for congestive heart failure 3. History of heart disease with ejection fraction of 40% 4. Hypoglycemia. 5. Insulin-dependent diabetes mellitus 6. Chronic renal failure. 6. Anemia 7. Previous splenectomy. 8. Electrolyte abnormalities. 9. Calcium and phosphorus abnormalities. 10. See past history 03/09/2017. Today's chest x-ray shows 5 lobe bilateral infiltrates. On the right side these are a little less extensive a little less dense than before. There are no positive cultures. The patient's admit white blood cell count was 1300. Is now increased to 16,500 with 89 6. H&H is low at 9.8/29.6. Electrolytes normal. Creatinine is 4.2 with a BUN of 68. Natruretic peptide is elevated 1664. ABGs on mechanical ventilation FiO2 90% shows a pH 7.44, PCO2 33.4, PO2 has increased to 6 218.5 with a bicarb of 22.1. Doppler venograms done 03/08/2017 showed no evidence of deep venous thrombophlebitis. We do not know whether or not this patient aspirated. Once she is more stable I will evaluated with fiberoptic bronchoscopy. I anticipate this will be on 2016. This patient needs to be followed by renal. Meds have been reviewed. Labs been reviewed. Echocardiogram. 03/08/2017. Severe global hypokinesis with an estimated ejection fraction of 20%. Grade 3 diastolic dysfunction. The right ventricle is mildly dilated. There is bilateral atrial enlargement. There is mild pulmonary valve insufficiency. Pulmonary artery pressures are mildly elevated at 47 mmHg. There is a trace of aortic regurgitation. There is a trace of mitral regurgitation. 03/10/2017. Patient's chest x-ray is improved. He still has alveolar filling infiltrates in all 5 lobes of his lungs. There are air bronchograms present. This is a resolving pneumonia. He has no positive cultures. He has had an art like picture. His O2 is increased to a good bit and I am able to cut back his O2 sats today and will progress with his weaning protocol as he tolerates it. The patient has underlying heart disease his natruretic peptide to have fallen from 1989-. Echocardiogram showed severe global hypokinesis with ejection fraction of 20% and grade 3 diastolic dysfunction. There is a good chance part of his chest x-ray appearance was related to atypical pulmonary edema. Cardiology is on the case. Electrolytes are normal. Creatinine remains elevated at 4.5 with a BUN of 78. Glucoses are coming under better control. Thyroid function tests are normal. White count 16,500 with 96. H&H is gradually decreasing to 9.0/27.5 with a platelet count of 182,000. 03/11/2017. Today's chest x-ray shows atelectasis at the left base. Patient is not weaning as well as I want him to. He was evaluated with fiberoptic bronchoscopy. I did not see any definite evidence of aspiration. Patient however has underlying COPD and scattered 5 lobe erosive bronchitis and he had a tremendous amount of retained secretions. All his lobes were lavaged and specimens showed multiple bronchial casts. Multiple studies were submitted. The patient tolerated this procedure well. His sputum cultures from 03/09/2017 are growing a gram-negative nerissa. His Gram stain showed gram-positive cocci. There has been no ID and no sensitivities yet. White count is dropped to 11, 100 H&H stable 8.6/26.0. ABGs are stable allowing for the FiO2. Patient is now on stage III to weaning protocol and hopefully he will be able to progress faster now that a tremendous amount of retained secretions has been removed. 03/13/2017. This patient was originally found down at home with glucoses of about 40. He had altered mental status and eventually required intubation mechanical ventilation. He was admitted with bilateral pneumonia. He has adult respiratory distress syndrome that was most likely secondary to pneumonia and sepsis. Patient is on mechanical ventilation. Patient on stage to weaning protocol. Today's chest x-ray shows some very mild increased interstitial markings in the right part perihilar area and in the right middle lung. His ABGs are stable. Other problems include insulin-dependent diabetes mellitus, chronic renal failure, anemia, previous splenectomy. Echocardiogram showed global height hypokinesis with ejection fraction of 20% and diastolic dysfunction. On 03/11/2017 he was evaluated with bronchoscopy. There was no definite evidence of aspiration. The patient did have underlying COPD with scattered areas of erosive bronchitis in all 5 lobes and he had a tremendous amount of retained secretion. His sputum's have grown a yeast. Creatinine remains elevated at 5.1 with a BUN of 108. H&H is 8.8/27.2. White count is dropped 8279 segs and 10 lymphs. Physical exam. Vital signs. See below Psychiatric/neuro. Patient is beginning to wake up and cooperate. Face is symmetrical. Lips and tongue are not swollen. Neck. Symmetrical. No meningismus Lymphatics. No submandibular cervical supraclavicular or epitrochlear adenopathy. Chest. Coarse large airway congestion has improved significant Heart. Lateral PMI Abdomen. Nondistended. Rare bowel sounds. Extremities. Poorly kept feet with chronic venous stasis The remainder the physical exam is noncontributory. Plan. 1. Mechanical ventilation. PEEP of 8 pressure support of 15 and high FiO2. 2. Agree with Zosyn. 3. Vancomycin. Consult pharmacology for renal adjustment 4. Sputum for Gram stain culture and sensitivity 5. Cold agglutinins. 03/09/2017, negative. 6. Legionella titer 7. Daily chest x-ray ABGs and lab 8. Doppler venograms of the lower extremities. We will out deep venous thrombophlebitis 9. Echocardiogram. See report. 10. Mechanical ventilation weaning protocol 11. Mechanical ventilation physical therapy protocol 12. Deep venous thrombophlebitis prevention protocol 13. Proton pump inhibitor protocol 14. 03/09/2017. Fiberoptic bronchoscopy tentatively scheduled for 03/11/2017. Cardiac ejection fraction is 20%. Need cardiology consultation. Creatinine is 4. Need renal consultation. Continue present antibiotics. Note the sputum and Legionella titers are pending. 15. 03/10/2017. Fiberoptic bronchoscopy on 03/11/2017. Weaning protocol. It appears the patient's only present antibiotic is Zosyn. 16. 03/13/2017. See my note above. Stage weaning protocol. More alert and can now cooperate some Exam (Progress Note) - Constitutional Vitals: Period Temp Pulse Resp BP Sys/Post Pulse Ox Last 24 Hr 97.5 F-99.0 F 68-77 8-29 105-131/56-75 98-100 Results - Labs CBC & BMP: 03/13/17 05:48 03/13/17 05:48
--- NOTE | 2017-03-13 12:07 | Nephrology Progress Note ---
Nephrology - PN: Subj Interval history: He remains on the ventilator. Blood pressure stable Exam (PN)-Nephrology - Vital Signs Vital signs: Period Temp Pulse Resp BP Sys/Post Pulse Ox Last 24 Hr 97.5 F-99.0 F 68-77 11-29 105-131/56-75 98-100 Exam: Gen.: Sedated on ventilator ENT: Pupils equal round reactive to light. Neck: Supple. No JVD or bruit. Cardiovascular: Regular rate and rhythm. No murmur rub or gallop Lungs: Clear Abdomen: Soft. Nontender. Positive bowel sounds. No organomegaly Extremities: No edema - Lab 03/13/17 05:48 03/13/17 05:48 Most recent lab results ABG pH 7.419 (7.35-7.45) 03/13/17 03:15 ABG pCO2 37.8 MM HG (35-48) 03/13/17 03:15 ABG pO2 164.3 MM HG (80-95) H 03/13/17 03:15 ABG HCO3 23.9 MMOL/L (20-26) 03/13/17 03:15 ABG O2 Saturation 98.8 % (95-100) 03/13/17 03:15 Calcium 6.7 MG/DL (8.5-10.1) L 03/13/17 05:48 Phosphorus 5.9 MG/DL (2.5-4.9) H 03/12/17 05:03 Magnesium 3.6 MG/DL (1.8-2.4) H 03/13/17 05:48 Assessment and Plan (1) Acute hypoxemic respiratory failure Status: Acute Assessment and plan: 61-year-old man admitted with: * Bilateral pneumonia. Ventilatory failure. 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 Baseline creatinine between 3 and 4. Creatinine has risen. Fluid balance negative. Diuretic discontinued * Nephrotic syndrome * Diabetes mellitus * Cardiomyopathy * Hypertension Current Visit: Yes (2) Bilateral pneumonia Status: Acute Current Visit: Yes (3) Cardiomyopathy Status: Chronic Current Visit: Yes (4) Chronic kidney disease, stage IV (severe) Status: Chronic Current Visit: Yes (5) Diabetes Status: Chronic Current Visit: Yes Qualifiers: Diabetes mellitus type: type 1 Diabetes mellitus complication status: with kidney complications Diabetes mellitus complication detail: with chronic kidney disease Chronic kidney disease stage: stage 4 (severe) Qualified Code (s): E10.22 - Type 1 diabetes mellitus with diabetic chronic kidney disease; N18.4 - Chronic kidney disease, stage 4 (severe) (6) Hypertension Status: Chronic Current Visit: Yes
[2017-03-13] MEDS: SODIUM CHLORIDE 0.9% 1,000 ML IV SCH (13:01)
[2017-03-14] MEDS: INSULIN REGULAR 100 UNIT/ML SUBCUT SCH ×5 (00:05→23:55)
[2017-03-14] MEDS: ALBUTEROL/IPRATROPIUM 3 ML NEB RESP TX SCH ×6 (02:19→22:52)
[2017-03-14 02:42] LABS: ABG Base Excess -2.6 MMOL/L (-2.5-2.5); ABG HCO3 22.3 MMOL/L (20-26); ABG Oxygen Saturation 99.8 % (95-100); ABG PCO2 36.6 MM HG (35-48); ABG PH 7.387 (7.35-7.45); ABG TCO2 20.2 MMOL/L (23-27); Allen Test Positive; Pt O2 Delivery Device Ventilator
[2017-03-14 04:06] LABS: Basophils % 0.2 % (0.0-0.8); Eosinophils # 0.4 10*3/uL (0.0-0.87); Eosinophils % 4.5 % (0.00-10.9); Hematocrit 28.5 VOL% (42.0-52.0); Hemoglobin 8.9 GM/DL (14.0-18.0); Immature Granulocytes % 0.8 %; Immature Granulocytes Absolute 0.07 #; Lymphocytes # 0.9 10*3/uL (1.4-4.0); Mean Corpuscular HGB Conc 31.2 GM/DL (32-36); Mean Corpuscular Hemoglobin 28 PG (27-34); Mean Corpuscular Volume 90.5 FL (87-102); Mean Platelet Volume 10.5 FL (9.6-12.0); Monocytes # 0.7 10*3/uL (0.11-0.8); Monocytes % 7.9 % (1.7-12.7); NRBC # 0.02 10*3/uL; Neutrophils # 6.4 10*3/uL (1.4-7.4); Neutrophils % 75.6 % (38.7-73.9); Platelet Count 220 T/CUMM (130-400); Red Blood Count 3.15 MC/CUMM (3.8-5.5); Red Cell Distribution Width 18.3 % (9.3-17.3); White Blood Count 8.5 T/CUMM (4-12)
[2017-03-14 04:32] LABS: Calcium 6.6 MG/DL (8.5-10.1); Magnesium 3.9 MG/DL (1.8-2.4); Osmolality,Calculated 313.8 MOS/KG (273-304); Potassium 4.9 MMOL/L (3.5-5.1)
[2017-03-14] MEDS: PROPOFOL 1,000 MG/100 ML BOTTLE IV SCH (05:50)
--- NOTE | 2017-03-14 06:53 | Cardiology Progress Note ---
Cardiology - PN: Subj Interval history: Cardiology note 61-year-old man with bilateral pneumonia and superimposed CHF and chronic renal failure. Completed 15 hours CPAP yesterday Telemetry shows sinus rhythm in the 70-80 range occasional PACs O2 sat 100 on 50% FiO2 Blood pressure 140/75 Decreased breath sounds few basilar rhonchi Regular rhythm no murmur Abdomen soft benign Trace leg edema Lab data today White count 8.5 hemoglobin 8.9 hematocrit 28.5 Sodium 137 potassium 4.9 chloride 102 CO2 23 BUN 115 creatinine 5.30 Glucose 167 magnesium 3.9 Impression Bilateral pneumonia Superimposed CHF Ejection fraction 20% with grade 3 diastolic dysfunction by recent echo Insulin dependent diabetic Status post splenectomy Chronic renal failure baseline creatinine between 3-4. Creatinine today 5.30 Hypertension Plan CPAP trials Tube feedings IV antibiotics Exam (Progress Note) - Constitutional Vitals: Period Temp Pulse Resp BP Sys/Post Pulse Ox Last 24 Hr 97.2 F-97.8 F 69-79 11-25 105-149/50-80 100-100 Result/EKG - Labs CBC & BMP: 03/14/17 03:19 03/14/17 03:19 Labs: Laboratory Results - last 24 hr 03/13/17 03/13/17 03/13/17 11:39 18:19 23:14 WBC RBC Hgb Hct MCV MCH MCHC RDW Plt Count MPV Neut % (Auto) Lymph % (Auto) [place] % (Auto) Eos % (Auto) Baso % (Auto) Neut # (Auto) Lymph # (Auto) [place] # (Auto) Eos # (Auto) Baso # (Auto) Immature Gran % Nucleated RBC % Immature Gran # Nucleated RBCs # ABG pH ABG pCO2 ABG pO2 ABG HCO3 ABG Total CO2 ABG O2 Saturation ABG Base Excess FiO2 Sodium Potassium Chloride Carbon Dioxide Anion Gap BUN Creatinine GFR Calculation BUN/Creatinine Ratio Glucose POC Glucose 167 H 190 H 191 H Calculated Osmolality Calcium Magnesium 03/14/17 03/14/17 03/14/17 02:25 03:19 03:19 WBC 8.5 RBC 3.15 L Hgb 8.9 L Hct 28.5 L MCV 90.5 MCH 28 MCHC 31.2 L RDW 18.3 H Plt Count 220 MPV 10.5 Neut % (Auto) 75.6 H Lymph % (Auto) 11.[address] % (Auto) 7.9 Eos % (Auto) 4.5 Baso % (Auto) 0.2 Neut # (Auto) 6.4 Lymph # (Auto) 0.[address] # (Auto) 0.7 Eos # (Auto) 0.4 Baso # (Auto) 0.0 Immature Gran % 0.8 Nucleated RBC % 0.2 Immature Gran # 0.07 Nucleated RBCs # 0.02 ABG pH 7.387 ABG pCO2 36.6 ABG pO2 274.0 H ABG HCO3 22.3 ABG Total CO2 20.2 L ABG O2 Saturation 99.8 ABG Base Excess -2.6 L FiO2 50.00 Sodium 137 Potassium 4.9 Chloride 102 Carbon Dioxide 23 Anion Gap 16.9 H BUN 115 H Creatinine 5.30 H GFR Calculation 13 BUN/Creatinine Ratio 21.00 H Glucose 167 H POC Glucose Calculated Osmolality 313.8 H Calcium 6.6 L Magnesium 3.9 H 03/14/17 05:27 WBC RBC Hgb Hct MCV MCH MCHC RDW Plt Count MPV Neut % (Auto) Lymph % (Auto) [place] % (Auto) Eos % (Auto) Baso % (Auto) Neut # (Auto) Lymph # (Auto) [place] # (Auto) Eos # (Auto) Baso # (Auto) Immature Gran % Nucleated RBC % Immature Gran # Nucleated RBCs # ABG pH ABG pCO2 ABG pO2 ABG HCO3 ABG Total CO2 ABG O2 Saturation ABG Base Excess FiO2 Sodium Potassium Chloride Carbon Dioxide Anion Gap BUN Creatinine GFR Calculation BUN/Creatinine Ratio Glucose POC Glucose 163 H Calculated Osmolality Calcium Magnesium
[2017-03-14] MEDS: SODIUM CHLORIDE 0.9% 1,000 ML IV SCH ×4 (07:42→22:42)
[2017-03-14] MEDS: PIPERACILLIN/TAZOBACTAM 3,375 MG in SODIUM CHLORIDE 0.9% 100 ML IV SCH ×2 (08:15→20:47)
[2017-03-14] MEDS: CYANOCOBALAMIN 500 MCG TABLET PO SCH (08:16)
[2017-03-14] MEDS: FOLIC ACID 1 MG TABLET PO SCH (08:16)
[2017-03-14] MEDS: INSULIN NPH 100 UNIT/ML SUBCUT SCH ×2 (08:16→20:47)
[2017-03-14] MEDS: LANSOPRAZOLE ODT 30 MG TABLET PER TUBE SCH (08:16)
[2017-03-14] MEDS: CARVEDILOL 3.125 MG TABLET PO SCH ×2 (08:17→20:47)
[2017-03-14] MEDS: ASPIRIN CHEW 81 MG TABLET PO SCH (08:17)
--- NOTE | 2017-03-14 08:27 | XRay Report ---
Portable chest Date: 03/14/2017 Clinical history: Ventilator Comparison: 03/13/2017 Technique: Portable AP sitting chest Findings: The heart remains minimally enlarged with stable support devices. Persistent diffuse parenchymal findings especially at the lung bases with possible small left pleural effusion. Stable mediastinum with degenerative changes. Impression: Minimally progressive CHF/bilateral pneumonia with small left pleural effusion. Stable supportive devices. PROCEDURE INTERPRETED AT [facility] DEPARTMENT OF RADIOLOGY Final Report Signed by: Dr. Isha Stewart
--- NOTE | 2017-03-14 11:09 | Hospitalist Progress Note ---
Assessment and Plan - Time spent with patient Time spent with patient: Less than 30 minutes (1) Acute hypoxemic respiratory failure Status: Acute Assessment and plan: Congestive heart failure type: unspecified congestive heart failure type Congestive heart failure chronicity: acute on chronic Qualified Code(s): I50.9 - Heart failure, unspecified (2) Diabetes Status: Chronic Current Visit: Yes Qualifiers: Diabetes mellitus type: type 1 Diabetes mellitus complication status: with kidney complications Diabetes mellitus complication detail: with chronic kidney disease Chronic kidney disease stage: stage 4 (severe) Qualified Code (s): E10.22 - Type 1 diabetes mellitus with diabetic chronic kidney disease; N18.4 - Chronic kidney disease, stage 4 (severe) (3) Chronic kidney disease, stage IV (severe) Status: Chronic Current Visit: Yes (4) Bilateral pneumonia Status: Acute Current Visit: Yes (5) Acute hypoxemic respiratory failure Status: Acute Current Visit: Yes (6) Hypoglycemia Status: Resolved Current Visit: Yes Current Visit: Yes (2) Bilateral pneumonia Status: Acute Current Visit: Yes (3) Congestive heart failure Status: Acute Current Visit: Yes Qualifiers: Congestive heart failure type: unspecified congestive heart failure type Congestive heart failure chronicity: acute on chronic Qualified Code(s): I50.9 - Heart failure, unspecified (4) Elevated troponin Status: Acute Current Visit: Yes (5) Hypokalemia Status: Acute Current Visit: Yes (6) Systolic CHF, acute on chronic Status: Acute Current Visit: Yes (7) Cardiomyopathy Status: Chronic Current Visit: Yes (8) Chronic kidney disease, stage IV (severe) Status: Chronic Current Visit: Yes Hospitalist: Subjective Interval history: No acute events overnight. Undergoing CPAP trials. Pulmonary managing. Remains on zosyn for bilateral pneumonia. Cardiology following for recent TX and cardiomyopathy. Nephrology following for CKD. Appreciate consultants Exam - Constitutional Vitals: Period Temp Pulse Resp BP Sys/Post Pulse Ox Last 24 Hr 97.2 F-97.8 F 69-79 11-27 105-149/50-80 95-100 General appearance: no acute distress - Head Head exam: Present: normal inspection, normocephalic, atraumatic - Eye Eye exam: Present: EOMI Pupils: Present: ASHLY - ENT ENT exam: Present: normal exam - Neck Neck exam: Present: normal inspection - Respiratory Respiratory exam: Present: rales, rhonchi, other (intubated on vent). Absent: clear to auscultation bilaterally, accessory muscle use, chest wall tenderness, decreased breath sounds - Cardiovascular Cardiovascular exam: Present: regular rate and rhythm. Absent: bradycardia, carotid bruit - GI/Abdominal GI/Abdominal exam: Present: normal bowel sounds. Absent: ascites, distended, firm - Extremities Exam Extremities exam: Present: normal inspection - Neurological Exam Neurological exam: Present: altered - Skin Skin exam: Present: normal color, warm Results - Labs CBC & BMP: 03/14/17 03:19 03/14/17 03:19 - Diagnostic Findings Procedure: Chest x-ray: image reviewed by me, report reviewed by me
--- NOTE | 2017-03-14 12:59 | Nephrology Progress Note ---
Nephrology - PN: Subj Interval history: He has been extubated. He is awake but poorly responsive.. Exam (PN)-Nephrology - Vital Signs Vital signs: Period Temp Pulse Resp BP Sys/Post Pulse Ox Last 24 Hr 97.2 F-97.8 F 70-79 11-28 122-149/60-80 95-100 Exam: Gen.: Awake but lethargic ENT: Pupils equal round reactive to light. Neck: Supple. No JVD or bruit. Cardiovascular: Regular rate and rhythm. No murmur rub or gallop Lungs: Clear Abdomen: Soft. Nontender. Positive bowel sounds. No organomegaly Extremities: No edema - Lab 03/14/17 03:19 03/14/17 03:19 Most recent lab results ABG pH 7.387 (7.35-7.45) 03/14/17 02:25 ABG pCO2 36.6 MM HG (35-48) 03/14/17 02:25 ABG pO2 274.0 MM HG (80-95) H 03/14/17 02:25 ABG HCO3 22.3 MMOL/L (20-26) 03/14/17 02:25 ABG O2 Saturation 99.8 % (95-100) 03/14/17 02:25 Calcium 6.6 MG/DL (8.5-10.1) L 03/14/17 03:19 Phosphorus 5.9 MG/DL (2.5-4.9) H 03/12/17 05:03 Magnesium 3.9 MG/DL (1.8-2.4) H 03/14/17 03:19 Assessment and Plan (1) Acute hypoxemic respiratory failure Status: Acute Assessment and plan: 61-year-old man admitted with: * Bilateral pneumonia. Ventilatory failure. 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 Baseline creatinine between 3 and 4. Creatinine has risen. Fluid balance negative. Increase IV rate * Nephrotic syndrome * Diabetes mellitus * Cardiomyopathy * Hypertension Current Visit: Yes (2) Bilateral pneumonia Status: Acute Current Visit: Yes (3) Cardiomyopathy Status: Chronic Current Visit: Yes (4) Chronic kidney disease, stage IV (severe) Status: Chronic Current Visit: Yes (5) Diabetes Status: Chronic Current Visit: Yes Qualifiers: Diabetes mellitus type: type 1 Diabetes mellitus complication status: with kidney complications Diabetes mellitus complication detail: with chronic kidney disease Chronic kidney disease stage: stage 4 (severe) Qualified Code (s): E10.22 - Type 1 diabetes mellitus with diabetic chronic kidney disease; N18.4 - Chronic kidney disease, stage 4 (severe) (6) Hypertension Status: Chronic Current Visit: Yes
[2017-03-15] MEDS: ALBUTEROL/IPRATROPIUM 3 ML NEB RESP TX SCH ×6 (02:42→23:32)
[2017-03-15 02:44] LABS: Allen Test Positive
[2017-03-15 02:45] LABS: ABG Base Excess -2.8 MMOL/L (-2.5-2.5); ABG HCO3 22.4 MMOL/L (20-26); ABG Oxygen Saturation 96.1 % (95-100); ABG PCO2 40.9 MM HG (35-48); ABG PH 7.357 (7.35-7.45); ABG PO2 89.2 MM HG (80-95); ABG TCO2 23.7 MMOL/L (23-27)
[2017-03-15] MEDS: INSULIN REGULAR 100 UNIT/ML SUBCUT SCH ×3 (06:04→18:00)
--- NOTE | 2017-03-15 06:38 | Cardiology Progress Note ---
Cardiology - PN: Subj Interval history: Cardiology note 58-year-old man with bilateral pneumonia and CHF Extubated yesterday Telemetry shows sinus rhythm in the 80s Blood pressure 144/80 O2 sat 99 on 2 L cannula Decreased breath sounds few basilar rhonchi Regular rhythm no murmur Abdomen soft benign Trace leg edema Impression Bilateral pneumonia Superimposed CHF Ejection fraction 20% with grade 3 diastolic dysfunction by recent echo Independent diabetes Status post splenectomy Chronic renal failure baseline creatinine 3-4 range. Creatinine yesterday was 4.50 Plan IV antibiotics BMP in a.m. Increase carvedilol 6.25 mg twice daily Exam (Progress Note) - Constitutional Vitals: Period Temp Pulse Resp BP Sys/Post Pulse Ox Last 24 Hr 97.2 F-99.1 F 76-90 10-28 121-150/50-80 92-100 Result/EKG - Labs CBC & BMP: 03/14/17 03:19 03/14/17 03:19 Labs: Laboratory Results - last 24 hr 03/14/17 03/14/17 03/14/17 12:03 17:55 23:39 ABG pH ABG pCO2 ABG pO2 ABG HCO3 ABG Total CO2 ABG O2 Saturation ABG Base Excess FiO2 POC Glucose 172 H 196 H 189 H 03/15/17 03/15/17 02:35 05:47 ABG pH 7.357 ABG pCO2 40.9 ABG pO2 89.2 ABG HCO3 22.4 ABG Total CO2 23.7 ABG O2 Saturation 96.1 ABG Base Excess -2.8 L FiO2 28.00 POC Glucose 177 H
--- NOTE | 2017-03-15 07:21 | Pulmonology Progress Note ---
Pulmonary - PN: Subj Interval history: Patient successfully extubated yesterday, no problems overnight per nursing, sleeping comfortably this morning Exam (Progress Note) - Constitutional Vitals: Period Temp Pulse Resp BP Sys/Post Pulse Ox Last 24 Hr 97.2 F-99.1 F 76-90 10-28 121-150/50-80 92-100 General appearance: no acute distress - Head Head exam: Present: normal inspection - Respiratory Respiratory exam: Present: clear to auscultation bilaterally. Absent: accessory muscle use, wheezes - Cardiovascular Cardiovascular exam: Present: regular rate and rhythm Results - Labs CBC & BMP: 03/14/17 03:19 03/14/17 03:19 Lab Results: I have reviewed the past 24 hour labs Assessment and Plan (1) Respiratory failure Status: Resolved Assessment and plan: Patient initally found down and intubated. He was successfully extubated yesterday. No obvious pulmonary problem at this time. Please call with any questions Current Visit: Yes Qualifiers: Chronicity: acute
[2017-03-15 07:55] LABS: Basophils % 0.1 % (0.0-0.8); Eosinophils # 0.4 10*3/uL (0.0-0.87); Eosinophils % 4.7 % (0.00-10.9); Hematocrit 28.5 VOL% (42.0-52.0); Hemoglobin 9.1 GM/DL (14.0-18.0); Immature Granulocytes % 1.2 %; Immature Granulocytes Absolute 0.09 #; Lymphocytes # 0.8 10*3/uL (1.4-4.0); Lymphocytes % 11.2 % (21.2-54.2); Mean Corpuscular HGB Conc 31.9 GM/DL (32-36); Mean Corpuscular Hemoglobin 29 PG (27-34); Mean Corpuscular Volume 89.3 FL (87-102); Mean Platelet Volume 10.6 FL (9.6-12.0); Monocytes # 0.5 10*3/uL (0.11-0.8); Monocytes % 6.2 % (1.7-12.7); Neutrophils # 5.7 10*3/uL (1.4-7.4); Neutrophils % 76.6 % (38.7-73.9); Platelet Count 263 T/CUMM (130-400); Red Blood Count 3.19 MC/CUMM (3.8-5.5); Red Cell Distribution Width 18.1 % (9.3-17.3); White Blood Count 7.4 T/CUMM (4-12)
[2017-03-15] MEDS: PIPERACILLIN/TAZOBACTAM 3,375 MG in SODIUM CHLORIDE 0.9% 100 ML IV SCH ×2 (07:56→21:19)
[2017-03-15] MEDS: FOLIC ACID 1 MG TABLET PO SCH (08:30)
[2017-03-15] MEDS: ASPIRIN CHEW 81 MG TABLET PO SCH (08:30)
[2017-03-15] MEDS: LANSOPRAZOLE ODT 30 MG TABLET PER TUBE SCH (08:30)
[2017-03-15] MEDS: CARVEDILOL 6.25 MG TABLET PO SCH ×2 (08:30→21:20)
[2017-03-15] MEDS: CYANOCOBALAMIN 500 MCG TABLET PO SCH (08:30)
[2017-03-15 08:34] LABS: Magnesium 4.1 MG/DL (1.8-2.4); Osmolality,Calculated 320.5 MOS/KG (273-304); Potassium 5.2 MMOL/L (3.5-5.1)
[2017-03-15] MEDS: INSULIN NPH 100 UNIT/ML SUBCUT SCH ×2 (08:43→21:20)
--- NOTE | 2017-03-15 09:18 | XRay Report ---
Portable chest Date: 03/15/2017 Clinical history: Ventilator Comparison: 03/14/2017 Technique: Portable AP sitting chest Findings: The heart is minimally enlarged with removal of the endotracheal tube. Nasogastric tube in the stomach. Reduced parenchymal findings with smaller pleural effusions. Stable mediastinum with degenerative changes. Old healed fracture of the mid left clavicle. Impression: Improved CHF/bilateral pneumonia with smaller pleural effusions. Interval removal of the endotracheal tube. PROCEDURE INTERPRETED AT [facility] DEPARTMENT OF RADIOLOGY Final Report Signed by: Dr. Isha Stewart
--- NOTE | 2017-03-15 09:54 | Hospitalist Progress Note ---
Assessment and Plan (1) Congestive heart failure Status: Acute Current Visit: Yes Qualifiers: Congestive heart failure type: unspecified congestive heart failure type Congestive heart failure chronicity: acute on chronic Qualified Code(s): I50.9 - Heart failure, unspecified (2) Diabetes Status: Chronic Current Visit: Yes Qualifiers: Diabetes mellitus type: type 1 Diabetes mellitus complication status: with kidney complications Diabetes mellitus complication detail: with chronic kidney disease Chronic kidney disease stage: stage 4 (severe) Qualified Code (s): E10.22 - Type 1 diabetes mellitus with diabetic chronic kidney disease; N18.4 - Chronic kidney disease, stage 4 (severe) (3) Chronic kidney disease, stage IV (severe) Status: Chronic Current Visit: Yes (4) Bilateral pneumonia Status: Acute Current Visit: Yes (5) Acute hypoxemic respiratory failure Status: Acute Current Visit: Yes (6) Hypoglycemia Status: Resolved Current Visit: Yes Hospitalist: Subjective Interval history: Extubated yesterday. No acute events overnight. Coreg increased today. Exam - Constitutional Vitals: Period Temp Pulse Resp BP Sys/Post Pulse Ox Last 24 Hr 97.5 F-99.1 F 76-90 10-28 123-150/58-83 92-100 General appearance: normal weight - Head Head exam: Present: normocephalic, atraumatic - Eye Eye exam: Present: EOMI Pupils: Present: ASHLY - ENT ENT exam: Present: normal exam - Neck Neck exam: Present: normal inspection - Respiratory Respiratory exam: Present: clear to auscultation bilaterally. Absent: rhonchi, wheezes - Cardiovascular Cardiovascular exam: Present: regular rate and rhythm - GI/Abdominal GI/Abdominal exam: Present: normal bowel sounds - Extremities Exam Extremities exam: Present: normal inspection - Back Exam Back exam: Present: normal inspection - Neurological Exam Neurological exam: Present: alert - Psychiatric Psychiatric exam: Present: normal affect, normal mood - Skin Skin exam: Present: warm, intact Results - Labs CBC & BMP: 03/15/17 07:39 03/15/17 07:39
[2017-03-15] MEDS: SODIUM CHLORIDE 0.9% 1,000 ML IV SCH ×5 (12:02→22:53)
--- NOTE | 2017-03-15 13:12 | Nephrology Progress Note ---
Nephrology - PN: Subj Interval history: He is awake and alert. He denies shortness of breath Exam (PN)-Nephrology - Vital Signs Vital signs: Period Temp Pulse Resp BP Sys/Post Pulse Ox Last 24 Hr 97.5 F-99.1 F 76-90 10-27 123-150/58-83 92-100 Exam: ENT: Normal Cardiovascular: Regular rate and rhythm. No murmur rub or gallop Lungs: Clear Extremities: No edema - Lab 03/15/17 07:39 03/15/17 07:39 Most recent lab results ABG pH 7.357 (7.35-7.45) 03/15/17 02:35 ABG pCO2 40.9 MM HG (35-48) 03/15/17 02:35 ABG pO2 89.2 MM HG (80-95) 03/15/17 02:35 ABG HCO3 22.4 MMOL/L (20-26) 03/15/17 02:35 ABG O2 Saturation 96.1 % (95-100) 03/15/17 02:35 Calcium 7.0 MG/DL (8.5-10.1) L 03/15/17 07:39 Phosphorus 5.9 MG/DL (2.5-4.9) H 03/12/17 05:03 Magnesium 4.1 MG/DL (1.8-2.4) H 03/15/17 07:39 Assessment and Plan (1) Acute hypoxemic respiratory failure Status: Acute Assessment and plan: 61-year-old man admitted with: * Bilateral pneumonia. Ventilatory failure. 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 Baseline creatinine between 3 and 4. Urine output has improved significantly. However, BUN and creatinine are higher. IV rate increased * Nephrotic syndrome * Diabetes mellitus * Cardiomyopathy * Hypertension Current Visit: Yes (2) Bilateral pneumonia Status: Acute Current Visit: Yes (3) Cardiomyopathy Status: Chronic Current Visit: Yes (4) Chronic kidney disease, stage IV (severe) Status: Chronic Current Visit: Yes (5) Diabetes Status: Chronic Current Visit: Yes Qualifiers: Diabetes mellitus type: type 1 Diabetes mellitus complication status: with kidney complications Diabetes mellitus complication detail: with chronic kidney disease Chronic kidney disease stage: stage 4 (severe) Qualified Code (s): E10.22 - Type 1 diabetes mellitus with diabetic chronic kidney disease; N18.4 - Chronic kidney disease, stage 4 (severe) (6) Hypertension Status: Chronic Current Visit: Yes
[2017-03-15] MEDS: DESITIN 4OZ/NYSTATIN 15 GRAM MIXTURE PASTE TOP SCH ×2 (13:40→21:21)
[2017-03-16] MEDS: INSULIN REGULAR 100 UNIT/ML SUBCUT SCH ×4 (00:51→17:40)
[2017-03-16] MEDS: ALBUTEROL/IPRATROPIUM 3 ML NEB RESP TX SCH ×5 (03:23→20:25)
[2017-03-16 05:27] LABS: Basophils % 0.1 % (0.0-0.8); Eosinophils # 0.4 10*3/uL (0.0-0.87); Eosinophils % 5.8 % (0.00-10.9); Hemoglobin 8.6 GM/DL (14.0-18.0); Immature Granulocytes Absolute 0.07 #; Lymphocytes # 0.8 10*3/uL (1.4-4.0); Lymphocytes % 12.1 % (21.2-54.2); Mean Corpuscular HGB Conc 30.7 GM/DL (32-36); Mean Corpuscular Hemoglobin 28 PG (27-34); Mean Corpuscular Volume 92.1 FL (87-102); Mean Platelet Volume 10.6 FL (9.6-12.0); Monocytes # 0.4 10*3/uL (0.11-0.8); Neutrophils # 5.1 10*3/uL (1.4-7.4); Platelet Count 272 T/CUMM (130-400); Red Blood Count 3.04 MC/CUMM (3.8-5.5); Red Cell Distribution Width 18.2 % (9.3-17.3); White Blood Count 6.8 T/CUMM (4-12)
[2017-03-16 06:03] LABS: Magnesium 4.3 MG/DL (1.8-2.4); Phosphorous 8.2 MG/DL (2.5-4.9); Prealbumin 17.6 MG/DL (20-40)
[2017-03-16 06:11] LABS: Calcium 7.1 MG/DL (8.5-10.1); Magnesium 4.2 MG/DL (1.8-2.4); Potassium 5.4 MMOL/L (3.5-5.1)
--- NOTE | 2017-03-16 07:14 | XRay Report ---
XR chest 1V portable Indication: Ventilator patient Comparison: 15 March 2017 Findings: The heart and mediastinum are stable in size and configuration. NG tube is unchanged in position. The pulmonary vascularity is slightly increased with bilateral increased interstitial lung density similar to previous. No other lung infiltrates, effusions, pneumothorax or other abnormality is demonstrated. Impression: Findings suggest mild cardiac decompensation similar to previous. PROCEDURE INTERPRETED AT [facility] DEPARTMENT OF RADIOLOGY Final Report Signed by: Dr. Carlos Eduardo Matamoros
[2017-03-16] MEDS: PIPERACILLIN/TAZOBACTAM 3,375 MG in SODIUM CHLORIDE 0.9% 100 ML IV SCH ×2 (08:00→21:15)
[2017-03-16 08:34] LABS: ABG Base Excess -3.8 MMOL/L (-2.5-2.5); ABG HCO3 21.5 MMOL/L (20-26); ABG Oxygen Saturation 96.3 % (95-100); ABG PCO2 40.1 MM HG (35-48); ABG PH 7.348 (7.35-7.45); ABG PO2 92.6 MM HG (80-95); ABG TCO2 22.8 MMOL/L (23-27)
[2017-03-16] MEDS: CYANOCOBALAMIN 500 MCG TABLET PO SCH (09:00)
[2017-03-16] MEDS: LANSOPRAZOLE ODT 30 MG TABLET PER TUBE SCH (09:00)
[2017-03-16] MEDS: ASPIRIN CHEW 81 MG TABLET PO SCH (09:00)
[2017-03-16] MEDS: INSULIN NPH 100 UNIT/ML SUBCUT SCH ×2 (09:00→22:10)
[2017-03-16] MEDS: CARVEDILOL 6.25 MG TABLET PO SCH ×2 (09:00→22:10)
[2017-03-16] MEDS: FOLIC ACID 1 MG TABLET PO SCH (09:00)
[2017-03-16] MEDS: SODIUM CHLORIDE 0.9% 1,000 ML IV SCH ×2 (09:30→22:09)
[2017-03-16] MEDS: DESITIN 4OZ/NYSTATIN 15 GRAM MIXTURE PASTE TOP SCH ×2 (09:30→22:12)
--- NOTE | 2017-03-16 10:19 | Cardiology Progress Note ---
Juan A Bruner Vanessa, RN, am scribing for, and in the presence of, Alfred Tinajero MD 10:13. Assessment and Plan - Time spent with patient Time spent with patient: Greater than 30 minutes (1) Congestive heart failure Status: Acute Assessment and plan: This is multifactorial on his presentation including an elevated pneumonia as well as his renal dysfunction volume overload. Certainly his cardiomyopathy exacerbate this. Continue to monitor this as his treated. He is nondiabetic this time. He is being creatinine are increasing. Current Visit: Yes Qualifiers: Congestive heart failure type: unspecified congestive heart failure type Congestive heart failure chronicity: acute on chronic Qualified Code(s): I50.9 - Heart failure, unspecified (2) Cardiomyopathy Status: Chronic Assessment and plan: Per echocardiogram this admission, LV ejection fraction of 20% with severe global hypokinesis. Due to severe renal dysfunction, cannot add ANKITA inhibitor or ARB. Some point he may need a AICD/biventricular pacer Current Visit: Yes (3) Hypertension Status: Chronic Assessment and plan: Overall, fairly well controlled. Current Visit: Yes (4) Bilateral pneumonia Status: Acute Assessment and plan: Per clinical findings, this is improved. Pulmonology is following also, and we will defer primary management to them. Current Visit: Yes (5) Chronic kidney disease, stage IV (severe) Status: Chronic Assessment and plan: Current creatinine of 5.4 with GFR 13. His renal function numbers aren't deteriorating slowly. Nephrology is also following. Patient is not requiring hemodialysis. Current Visit: Yes (6) Diabetes Status: Chronic Assessment and plan: This is being treated by primary service and will defer this to them. Current Visit: Yes Qualifiers: Diabetes mellitus type: type 1 Diabetes mellitus complication status: with kidney complications Diabetes mellitus complication detail: with chronic kidney disease Chronic kidney disease stage: stage 4 (severe) Qualified Code (s): E10.22 - Type 1 diabetes mellitus with diabetic chronic kidney disease; N18.4 - Chronic kidney disease, stage 4 (severe) (7) Dyslipidemia Status: Chronic Assessment and plan: Patient has been on a statin drug previously a low dose and should be on this being a diabetic. He started back prior to discharge. Current Visit: Yes Cardiology - PN: Subj Interval history: [facility] ARCHITECT: DR. JACKY TINAJERO PCP: [facility] Mr. Mantilla is a 61 year old male with past medical history of HTN , CHF, DM, dyslipidemia, CKD stage IV, cardiomyopathy with most recent ejection fraction of 20% and grade III diastolic dysfunction. He was found at home on 03/08 with altered mental status and blood glucose of 40, had respiratory distress , and required intubation with mechanical ventilation. He was admitted to [facility] ICU per [facility], and he has been treated for bilateral pneumonia, congestive heart failure, and was successfully extubated on 03/14/17. Patient is also being followed by pulmonology and nephrology during admission. He remains in the ICU under close observation today. Patient is awake and alert in no apparent distress. Denies CP, discomfort, dyspnea, or other complaint at this time. Chest x-ray with improving CHF and bilateral pneumonia. Labs reviewed. H/H is stable. Hyperkalemic at 5.4 and hypermagnesemic at 4.2. Creatinine is 5.4 with GFR 13. Tele review with sinus rhythm in the 80s. No overt ectopy or arrhythmia. SBP 135-155. His cardiomyopathy is unclear developed from from ejection fraction 40% July 2015 to the 20% or less November 2016. The patient's situation such an AICD or even biventricular pacemaker may be appropriate. When he gets ECG tomorrow. Continue aggressive supportive therapy for the patient. These are all need to be allowed time to get over his present medical issues. Exam (Progress Note) - Constitutional Vitals: Period Temp Pulse Resp BP Sys/Post Pulse Ox Last 24 Hr 97.8 F-99.0 F 76-90 15-25 120-154/63-88 93-100 General appearance: no acute distress, over weight - Head Head exam: Present: normal inspection. Absent: contusion, hematoma, laceration - Eye Eye exam: Absent: periorbital swelling, laceration to eyelids Pupils: Present: ASHLY. Absent: dilated, irregular - ENT ENT exam: Present: normal external ear exam - Neck Neck exam: Present: normal inspection. Absent: tenderness - Respiratory Respiratory exam: Present: other (coarse breath sounds but overall clear to auscultation). Absent: rhonchi, stridor, wheezes - Cardiovascular Cardiovascular exam: Present: regular rate and rhythm. Absent: bradycardia, diastolic murmur, irregular rhythm, JVD, systolic murmur, tachycardia - GI/Abdominal GI/Abdominal exam: Present: normal bowel sounds, soft. Absent: distended, firm , tenderness - Extremities Exam Extremities exam: Present: normal capillary refill, edema (BLEs 1+) - Back Exam Back exam: Present: normal inspection - Neurological Exam Neurological exam: Present: alert, oriented X3 - Psychiatric Psychiatric exam: Present: normal affect, normal mood. Absent: agitated, anxious - Skin Skin exam: Present: warm, dry. Absent: cyanosis, diaphoretic Result/EKG - Labs CBC & BMP: 03/16/17 05:03 03/16/17 05:03 Lab Results: I have reviewed the past 24 hour labs Labs: Laboratory Results - last 24 hr 03/15/17 03/15/17 03/15/17 11:47 18:03 23:57 WBC RBC Hgb Hct MCV MCH MCHC RDW Plt Count MPV Neut % (Auto) Lymph % (Auto) [place] % (Auto) Eos % (Auto) Baso % (Auto) Neut # (Auto) Lymph # (Auto) [place] # (Auto) Eos # (Auto) Baso # (Auto) Immature Gran % Nucleated RBC % Immature Gran # Nucleated RBCs # ABG pH ABG pCO2 ABG pO2 ABG HCO3 ABG Total CO2 ABG O2 Saturation ABG Base Excess FiO2 Sodium Potassium Chloride Carbon Dioxide Anion Gap BUN Creatinine GFR Calculation BUN/Creatinine Ratio Glucose POC Glucose 157 H 135 H 192 H Calculated Osmolality Calcium Phosphorus Magnesium Prealbumin 03/16/17 03/16/17 03/16/17 05:03 05:03 05:03 WBC 6.8 RBC 3.04 L Hgb 8.6 L Hct 28.0 L MCV 92.1 MCH 28 MCHC 30.7 L RDW 18.2 H Plt Count 272 MPV 10.6 Neut % (Auto) 75.0 H Lymph % (Auto) 12.1 L [place] % (Auto) 6.0 Eos % (Auto) 5.8 Baso % (Auto) 0.1 Neut # (Auto) 5.1 Lymph # (Auto) 0.8 L [place] # (Auto) 0.4 Eos # (Auto) 0.4 Baso # (Auto) 0.0 Immature Gran % 1.0 Nucleated RBC % 0.0 Immature Gran # 0.07 Nucleated RBCs # 0.00 ABG pH ABG pCO2 ABG pO2 ABG HCO3 ABG Total CO2 ABG O2 Saturation ABG Base Excess FiO2 Sodium 143 Potassium 5.4 H Chloride 111 H Carbon Dioxide 22 Anion Gap 15.4 H BUN 121 H Creatinine 5.40 H GFR Calculation 13 BUN/Creatinine Ratio 22.00 H Glucose 178 H POC Glucose Calculated Osmolality 327.0 H Calcium 7.1 L Phosphorus 8.2 H Magnesium 4.3 H 4.2 H Prealbumin 17.6 L 03/16/17 03/16/17 05:25 08:16 WBC RBC Hgb Hct MCV MCH MCHC RDW Plt Count MPV Neut % (Auto) Lymph % (Auto) [place] % (Auto) Eos % (Auto) Baso % (Auto) Neut # (Auto) Lymph # (Auto) [place] # (Auto) Eos # (Auto) Baso # (Auto) Immature Gran % Nucleated RBC % Immature Gran # Nucleated RBCs # ABG pH 7.348 L ABG pCO2 40.1 ABG pO2 92.6 ABG HCO3 21.5 ABG Total CO2 22.8 L ABG O2 Saturation 96.3 ABG Base Excess -3.8 L FiO2 28.00 Sodium Potassium Chloride Carbon Dioxide Anion Gap BUN Creatinine GFR Calculation BUN/Creatinine Ratio Glucose POC Glucose 190 H Calculated Osmolality Calcium Phosphorus Magnesium Prealbumin - Impressions Impressions: Telemetry was sinus rhythm. No dysrhythmias demonstrated. - Diagnostic Findings Procedure: Chest x-ray: image reviewed by me, report reviewed by me (03/16/17: improving CHF and bilateral pneumonia) - EKG EKG results: interpreted by me, no acute changes EKG shows: sinus rhythm IFaisal John Timothy, MD, personally performed the services described in this documentation, ascribed by Shania Velazco RN in my presence, and it is both accurate and complete .
--- NOTE | 2017-03-16 11:37 | Pulmonology Progress Note ---
Pulmonary - PN: Subj Interval history: Dionte Johnson, ANP-BC, GNP-BC, acting as scribe for Dr. Alfonso Quesada This is a 61-year-old male who we saw in initial pulmonary consultation on 03/08/2017. This patient had been sent from an outside hospital with chest pain. His troponins were said to be elevated. He had respiratory failure for oxygen and required intubation and mechanical ventilation. Patient had originally been found down at home. He had taken insulin but had not eaten and was told that his glucoses were 40. At the time of our initial consult, our impressions were: 1. Bilateral pneumonia. 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 2. Adult respiratory distress syndrome most likely secondary to #1. Watch for congestive heart failure 3. History of heart disease with ejection fraction of 40% 4. Hypoglycemia. 5. Insulin-dependent diabetes mellitus 6. Chronic renal failure. 6. Anemia 7. Previous splenectomy. 8. Electrolyte abnormalities. 9. Calcium and phosphorus abnormalities. 10. See past history 03/09/2017. Today's chest x-ray shows 5 lobe bilateral infiltrates. On the right side these are a little less extensive a little less dense than before. There are no positive cultures. The patient's admit white blood cell count was 1300. Is now increased to 16,500 with 89 6. H&H is low at 9.8/29.6. Electrolytes normal. Creatinine is 4.2 with a BUN of 68. Natruretic peptide is elevated 1664. ABGs on mechanical ventilation FiO2 90% shows a pH 7.44, PCO2 33.4, PO2 has increased to 6 218.5 with a bicarb of 22.1. Doppler venograms done 03/08/2017 showed no evidence of deep venous thrombophlebitis. We do not know whether or not this patient aspirated. Once she is more stable I will evaluated with fiberoptic bronchoscopy. I anticipate this will be on 2016. This patient needs to be followed by renal. Meds have been reviewed. Labs been reviewed. Echocardiogram. 03/08/2017. Severe global hypokinesis with an estimated ejection fraction of 20%. Grade 3 diastolic dysfunction. The right ventricle is mildly dilated. There is bilateral atrial enlargement. There is mild pulmonary valve insufficiency. Pulmonary artery pressures are mildly elevated at 47 mmHg. There is a trace of aortic regurgitation. There is a trace of mitral regurgitation. 03/10/2017. Patient's chest x-ray is improved. He still has alveolar filling infiltrates in all 5 lobes of his lungs. There are air bronchograms present. This is a resolving pneumonia. He has no positive cultures. He has had an art like picture. His O2 is increased to a good bit and I am able to cut back his O2 sats today and will progress with his weaning protocol as he tolerates it. The patient has underlying heart disease his natruretic peptide to have fallen from 1989-. Echocardiogram showed severe global hypokinesis with ejection fraction of 20% and grade 3 diastolic dysfunction. There is a good chance part of his chest x-ray appearance was related to atypical pulmonary edema. Cardiology is on the case. Electrolytes are normal. Creatinine remains elevated at 4.5 with a BUN of 78. Glucoses are coming under better control. Thyroid function tests are normal. White count 16,500 with 96. H&H is gradually decreasing to 9.0/27.5 with a platelet count of 182,000. 03/11/2017. Today's chest x-ray shows atelectasis at the left base. Patient is not weaning as well as I want him to. He was evaluated with fiberoptic bronchoscopy. I did not see any definite evidence of aspiration. Patient however has underlying COPD and scattered 5 lobe erosive bronchitis and he had a tremendous amount of retained secretions. All his lobes were lavaged and specimens showed multiple bronchial casts. Multiple studies were submitted. The patient tolerated this procedure well. His sputum cultures from 03/09/2017 are growing a gram-negative nerissa. His Gram stain showed gram-positive cocci. There has been no ID and no sensitivities yet. White count is dropped to 11, 100 H&H stable 8.6/26.0. ABGs are stable allowing for the FiO2. Patient is now on stage III to weaning protocol and hopefully he will be able to progress faster now that a tremendous amount of retained secretions has been removed. 03/12/2017. The patient underwent fiberoptic bronchoscopy yesterday. Bronchoscopy Gram stain showed few gram-positive cocci and many white blood cells. Sputum culture obtained 03/09/2017 is growing a gram-negative nerissa. Identification and sensitivities are pending. He is presently on Zosyn. Blood cultures are negative at day 3. Yesterday he was on stage III of the weaning process and completed approximately 1-1/2 hours. We are continuing to wean as tolerated. 03/13/2017. This patient was originally found down at home with glucoses of about 40. He had altered mental status and eventually required intubation mechanical ventilation. He was admitted with bilateral pneumonia. He has adult respiratory distress syndrome that was most likely secondary to pneumonia and sepsis. Patient is on mechanical ventilation. Patient on stage to weaning protocol. Today's chest x-ray shows some very mild increased interstitial markings in the right part perihilar area and in the right middle lung. His ABGs are stable. Other problems include insulin-dependent diabetes mellitus, chronic renal failure, anemia, previous splenectomy. Echocardiogram showed global hypokinesis with ejection fraction of 20% and diastolic dysfunction. On 03/11/2017 he was evaluated with bronchoscopy. There was no definite evidence of aspiration. The patient did have underlying COPD with scattered areas of erosive bronchitis in all 5 lobes and he had a tremendous amount of retained secretion. His sputum's have grown a yeast. Creatinine remains elevated at 5.1 with a BUN of 108. H&H is 8.8/27.2. White count is dropped 8279 segs and 10 lymphs. 03/16/2017. The patient was extubated on the evening of 03/14/2017. He is done well from a pulmonary standpoint since that time. Chest x-ray today, however, shows acute congestive heart failure with top normal vasculature and fluid in the minor fissure. BNP has been ordered and is pending. We will repeat a chest x-ray tomorrow. Medications have been reviewed. We made no changes today. Labs have been reviewed. White count 6900 with 75.0% segs; H&H 8.6/28.0; platelet count 272,000; creatinine 5.40, BUN 121, sodium 143, potassium 5.4, magnesium 4.2, phosphorus 8.2, calcium 7.1 ABGs this morning on an FiO2 of 28% showed pH of 7.348, PCO2 40.1, PO2 92.6, bicarb 21.5, and oxygen saturation 96.3% Exam (Progress Note) - Constitutional Vitals: Period Temp Pulse Resp BP Sys/Post Pulse Ox Last 24 Hr 97.8 F-99.0 F 77-90 12-25 120-154/63-88 93-100 Exam: Chest with improved coarse large airway congestion Heart with a lateral PMI Abdomen is nondistended; rare bowel sounds Extremities with chronic venous stasis; nothing to suggest acute deep venous thrombophlebitis Psychiatric awake and alert Neurologic moves all 4 extremities Plan: This patient was extubated the evening of 03/14/2017. Follow-up BNP. Repeat chest x-ray in the morning. See orders. Results - Labs CBC & BMP: 03/16/17 05:03 03/16/17 05:03
--- NOTE | 2017-03-16 11:38 | Hospitalist Progress Note ---
Assessment and Plan (1) Congestive heart failure Status: Acute Current Visit: Yes Qualifiers: Congestive heart failure type: unspecified congestive heart failure type Congestive heart failure chronicity: acute on chronic Qualified Code(s): I50.9 - Heart failure, unspecified (2) Diabetes Status: Chronic Current Visit: Yes Qualifiers: Diabetes mellitus type: type 1 Diabetes mellitus complication status: with kidney complications Diabetes mellitus complication detail: with chronic kidney disease Chronic kidney disease stage: stage 4 (severe) Qualified Code (s): E10.22 - Type 1 diabetes mellitus with diabetic chronic kidney disease; N18.4 - Chronic kidney disease, stage 4 (severe) (3) Chronic kidney disease, stage IV (severe) Status: Chronic Current Visit: Yes (4) Bilateral pneumonia Status: Acute Current Visit: Yes (5) Acute hypoxemic respiratory failure Status: Acute Current Visit: Yes (6) Hypoglycemia Status: Resolved Current Visit: Yes Hospitalist: Subjective Interval history: Patient asleep but will wake and answer questions. Oriented to person, place and time. Failed his swallow evaluation today. Will remain NPO for now. Tolerating tube feeds. Will transfer to the floor today. Not much change in creatinine, nephrology assisting. Exam - Constitutional Vitals: Period Temp Pulse Resp BP Sys/Post Pulse Ox Last 24 Hr 97.8 F-99.0 F 77-90 12-25 120-154/63-88 93-100 General appearance: normal weight - Head Head exam: Present: normocephalic, atraumatic - Eye Eye exam: Present: EOMI Pupils: Present: ASHLY - ENT ENT exam: Present: normal exam - Neck Neck exam: Present: normal inspection - Respiratory Respiratory exam: Present: clear to auscultation bilaterally. Absent: rhonchi, wheezes - Cardiovascular Cardiovascular exam: Present: regular rate and rhythm - GI/Abdominal GI/Abdominal exam: Present: normal bowel sounds, soft. Absent: tenderness, rebound - Extremities Exam Extremities exam: Present: normal inspection - Back Exam Back exam: Present: normal inspection - Neurological Exam Neurological exam: Present: alert, oriented X3 - Psychiatric Psychiatric exam: Present: normal affect, normal mood - Skin Skin exam: Present: warm, intact Results - Labs CBC & BMP: 03/16/17 05:03 03/16/17 05:03
--- NOTE | 2017-03-16 13:01 | Nephrology Progress Note ---
Nephrology - PN: Subj Interval history: He is awake and alert. He denies shortness of breath. Exam (PN)-Nephrology - Vital Signs Vital signs: Period Temp Pulse Resp BP Sys/Post Pulse Ox Last 24 Hr 97.8 F-99.0 F 77-90 12-23 120-154/63-88 95-100 Exam: ENT: Normal Cardiovascular: Regular rate and rhythm. No murmur rub or gallop Lungs: Clear Extremities: No edema - Lab 03/16/17 05:03 03/16/17 05:03 Most recent lab results ABG pH 7.348 (7.35-7.45) L 03/16/17 08:16 ABG pCO2 40.1 MM HG (35-48) 03/16/17 08:16 ABG pO2 92.6 MM HG (80-95) 03/16/17 08:16 ABG HCO3 21.5 MMOL/L (20-26) 03/16/17 08:16 ABG O2 Saturation 96.3 % (95-100) 03/16/17 08:16 Calcium 7.1 MG/DL (8.5-10.1) L 03/16/17 05:03 Phosphorus 8.2 MG/DL (2.5-4.9) H 03/16/17 05:03 Magnesium 4.2 MG/DL (1.8-2.4) H 03/16/17 05:03 Assessment and Plan (1) Acute hypoxemic respiratory failure Status: Acute Assessment and plan: 61-year-old man admitted with: * Bilateral pneumonia. 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 Baseline creatinine between 3 and 4. Fluid balance neutral. IV rate decreased * Nephrotic syndrome * Diabetes mellitus * Cardiomyopathy * Hypertension Current Visit: Yes (2) Bilateral pneumonia Status: Acute Current Visit: Yes (3) Cardiomyopathy Status: Chronic Current Visit: Yes (4) Chronic kidney disease, stage IV (severe) Status: Chronic Current Visit: Yes (5) Diabetes Status: Chronic Current Visit: Yes Qualifiers: Diabetes mellitus type: type 1 Diabetes mellitus complication status: with kidney complications Diabetes mellitus complication detail: with chronic kidney disease Chronic kidney disease stage: stage 4 (severe) Qualified Code (s): E10.22 - Type 1 diabetes mellitus with diabetic chronic kidney disease; N18.4 - Chronic kidney disease, stage 4 (severe) (6) Hypertension Status: Chronic Current Visit: Yes
[2017-03-17] MEDS: ALBUTEROL/IPRATROPIUM 3 ML NEB RESP TX SCH ×7 (00:46→22:59)
[2017-03-17] MEDS: INSULIN REGULAR 100 UNIT/ML SUBCUT SCH ×4 (00:56→17:44)
[2017-03-17] MEDS: SODIUM CHLORIDE 0.9% 1,000 ML IV SCH (05:55)
[2017-03-17 06:10] LABS: Basophils % 0.1 % (0.0-0.8); Eosinophils # 0.4 10*3/uL (0.0-0.87); Eosinophils % 5.3 % (0.00-10.9); Hematocrit 25.8 VOL% (42.0-52.0); Hemoglobin 8.1 GM/DL (14.0-18.0); Immature Granulocytes % 0.5 %; Immature Granulocytes Absolute 0.04 #; Lymphocytes # 0.8 10*3/uL (1.4-4.0); Lymphocytes % 10.8 % (21.2-54.2); Mean Corpuscular HGB Conc 31.4 GM/DL (32-36); Mean Corpuscular Hemoglobin 29 PG (27-34); Mean Corpuscular Volume 90.8 FL (87-102); Mean Platelet Volume 10.6 FL (9.6-12.0); Monocytes # 0.5 10*3/uL (0.11-0.8); Monocytes % 6.3 % (1.7-12.7); Neutrophils # 5.7 10*3/uL (1.4-7.4); Platelet Count 312 T/CUMM (130-400); Red Blood Count 2.84 MC/CUMM (3.8-5.5); Red Cell Distribution Width 18.3 % (9.3-17.3); White Blood Count 7.3 T/CUMM (4-12)
[2017-03-17 06:34] LABS: Calcium 7.4 MG/DL (8.5-10.1); Magnesium 4.2 MG/DL (1.8-2.4); Osmolality,Calculated 330.6 MOS/KG (273-304); Potassium 5.1 MMOL/L (3.5-5.1)
--- NOTE | 2017-03-17 08:02 | XRay Report ---
XR chest 1V portable Indication: Congestive heart failure Comparison: 16 March 2017 Findings: The heart and mediastinum are stable in size and configuration. The pulmonary vascularity is slightly increased with bilateral increased interstitial lung density. No other lung infiltrates, effusions, pneumothorax or other abnormality is demonstrated. Impression: Findings suggest mild cardiac decompensation. PROCEDURE INTERPRETED AT [facility] DEPARTMENT OF RADIOLOGY Final Report Signed by: Dr. Carlos Eduardo Matamoros
[2017-03-17] MEDS: INSULIN NPH 100 UNIT/ML SUBCUT SCH ×2 (09:28→20:47)
[2017-03-17] MEDS: DESITIN 4OZ/NYSTATIN 15 GRAM MIXTURE PASTE TOP SCH ×2 (11:00→20:40)
--- NOTE | 2017-03-17 11:05 | XRay Report ---
XR chest 1V portable Indication: Tube placement Comparison: 17 March 2017 Findings: Exam is centered over the lower chest and upper abdomen. NG tube is present with tip overlying the left upper quadrant. Impression: NG tube appears in appropriate x-ray position. PROCEDURE INTERPRETED AT [facility] [place] DEPARTMENT OF RADIOLOGY Final Report Signed by: Dr. Carlos Eduardo Matamoros
[2017-03-17] MEDS: LANSOPRAZOLE ODT 30 MG TABLET PER TUBE SCH (11:30)
[2017-03-17] MEDS: FOLIC ACID 1 MG TABLET PO SCH (11:30)
[2017-03-17] MEDS: CARVEDILOL 6.25 MG TABLET PO SCH ×2 (11:30→20:35)
[2017-03-17] MEDS: ASPIRIN CHEW 81 MG TABLET PO SCH (11:30)
[2017-03-17] MEDS: CYANOCOBALAMIN 500 MCG TABLET PO SCH (11:30)
[2017-03-17] MEDS: PIPERACILLIN/TAZOBACTAM 3,375 MG in SODIUM CHLORIDE 0.9% 100 ML IV SCH ×2 (11:50→20:34)
--- NOTE | 2017-03-17 12:01 | Pulmonology Progress Note ---
Pulmonary - PN: Subj Interval history: Dionte Johnson, ANP-BC, GNP-BC, acting as scribe for Dr. Alfonso Quesada This is a 61-year-old male who we saw in initial pulmonary consultation on 03/08/2017. This patient had been sent from an outside hospital with chest pain. His troponins were said to be elevated. He had respiratory failure for oxygen and required intubation and mechanical ventilation. Patient had originally been found down at home. He had taken insulin but had not eaten and was told that his glucoses were 40. At the time of our initial consult, our impressions were: 1. Bilateral pneumonia. I think we have to cover for gram positives and gram- negative rods but I suspect this will returned case inspector to be staph. 2. Adult respiratory distress syndrome most likely secondary to #1. Watch for congestive heart failure 3. History of heart disease with ejection fraction of 40% 4. Hypoglycemia. 5. Insulin-dependent diabetes mellitus 6. Chronic renal failure. 6. Anemia 7. Previous splenectomy. 8. Electrolyte abnormalities. 9. Calcium and phosphorus abnormalities. 10. See past history 03/09/2017. Today's chest x-ray shows 5 lobe bilateral infiltrates. On the right side these are a little less extensive a little less dense than before. There are no positive cultures. The patient's admit white blood cell count was 1300. Is now increased to 16,500 with 89 6. H&H is low at 9.8/29.6. Electrolytes normal. Creatinine is 4.2 with a BUN of 68. Natruretic peptide is elevated 1664. ABGs on mechanical ventilation FiO2 90% shows a pH 7.44, PCO2 33.4, PO2 has increased to 6 218.5 with a bicarb of 22.1. Doppler venograms done 03/08/2017 showed no evidence of deep venous thrombophlebitis. We do not know whether or not this patient aspirated. Once she is more stable I will evaluated with fiberoptic bronchoscopy. I anticipate this will be on 2016. This patient needs to be followed by renal. Meds have been reviewed. Labs been reviewed. Echocardiogram. 03/08/2017. Severe global hypokinesis with an estimated ejection fraction of 20%. Grade 3 diastolic dysfunction. The right ventricle is mildly dilated. There is bilateral atrial enlargement. There is mild pulmonary valve insufficiency. Pulmonary artery pressures are mildly elevated at 47 mmHg. There is a trace of aortic regurgitation. There is a trace of mitral regurgitation. 03/10/2017. Patient's chest x-ray is improved. He still has alveolar filling infiltrates in all 5 lobes of his lungs. There are air bronchograms present. This is a resolving pneumonia. He has no positive cultures. He has had an art like picture. His O2 is increased to a good bit and I am able to cut back his O2 sats today and will progress with his weaning protocol as he tolerates it. The patient has underlying heart disease his natruretic peptide to have fallen from 1989-. Echocardiogram showed severe global hypokinesis with ejection fraction of 20% and grade 3 diastolic dysfunction. There is a good chance part of his chest x-ray appearance was related to atypical pulmonary edema. Cardiology is on the case. Electrolytes are normal. Creatinine remains elevated at 4.5 with a BUN of 78. Glucoses are coming under better control. Thyroid function tests are normal. White count 16,500 with 96. H&H is gradually decreasing to 9.0/27.5 with a platelet count of 182,000. 03/11/2017. Today's chest x-ray shows atelectasis at the left base. Patient is not weaning as well as I want him to. He was evaluated with fiberoptic bronchoscopy. I did not see any definite evidence of aspiration. Patient however has underlying COPD and scattered 5 lobe erosive bronchitis and he had a tremendous amount of retained secretions. All his lobes were lavaged and specimens showed multiple bronchial casts. Multiple studies were submitted. The patient tolerated this procedure well. His sputum cultures from 03/09/2017 are growing a gram-negative nerissa. His Gram stain showed gram-positive cocci. There has been no ID and no sensitivities yet. White count is dropped to 11, 100 H&H stable 8.6/26.0. ABGs are stable allowing for the FiO2. Patient is now on stage III to weaning protocol and hopefully he will be able to progress faster now that a tremendous amount of retained secretions has been removed. 03/12/2017. The patient underwent fiberoptic bronchoscopy yesterday. Bronchoscopy Gram stain showed few gram-positive cocci and many white blood cells. Sputum culture obtained 03/09/2017 is growing a gram-negative nerissa. Identification and sensitivities are pending. He is presently on Zosyn. Blood cultures are negative at day 3. Yesterday he was on stage III of the weaning process and completed approximately 1-1/2 hours. We are continuing to wean as tolerated. 03/13/2017. This patient was originally found down at home with glucoses of about 40. He had altered mental status and eventually required intubation mechanical ventilation. He was admitted with bilateral pneumonia. He has adult respiratory distress syndrome that was most likely secondary to pneumonia and sepsis. Patient is on mechanical ventilation. Patient on stage to weaning protocol. Today's chest x-ray shows some very mild increased interstitial markings in the right part perihilar area and in the right middle lung. His ABGs are stable. Other problems include insulin-dependent diabetes mellitus, chronic renal failure, anemia, previous splenectomy. Echocardiogram showed global hypokinesis with ejection fraction of 20% and diastolic dysfunction. On 03/11/2017 he was evaluated with bronchoscopy. There was no definite evidence of aspiration. The patient did have underlying COPD with scattered areas of erosive bronchitis in all 5 lobes and he had a tremendous amount of retained secretion. His sputum's have grown a yeast. Creatinine remains elevated at 5.1 with a BUN of 108. H&H is 8.8/27.2. White count is dropped 8279 segs and 10 lymphs. 03/16/2017. The patient was extubated on the evening of 03/14/2017. He is done well from a pulmonary standpoint since that time. Chest x-ray today, however, shows acute congestive heart failure with top normal vasculature and fluid in the minor fissure. BNP has been ordered and is pending. We will repeat a chest x-ray tomorrow. 03/17/2017. The patient has now been moved to the telemetry floor. He continues to do well from a pulmonary standpoint. Today's chest x-ray shows continuing improved congestive heart failure. He is being followed from a cardiology standpoint and nephrology standpoint. Those notes have been reviewed. BNP yesterday was 4135. This was not repeated today. The patient was extubated on the evening of 03/14/2017. Positive ABGs postextubation was done 03/16/2017 on an FiO2 of 28% showed a pH of 7.348, PCO2 40.1, PO2 92.6, bicarb 21.5, and oxygen saturation 96.3%. Medications have been reviewed. We made no changes today. Labs have been reviewed. White count 7300 with 77.0% 6; H&H 8.1/25.8; platelet count 312,000; creatinine has improved to 5.00, BUN 116, sodium 146, potassium 5.1, magnesium 4.2 Exam (Progress Note) - Constitutional Vitals: Period Temp Pulse Resp BP Sys/Post Pulse Ox Last 24 Hr 97.8 F-98.8 F 81-85 9-24 114-138/59-81 95-100 Exam: Chest with improved coarse large airway congestion Heart with a lateral PMI Abdomen is nondistended; rare bowel sounds Extremities with chronic venous stasis; nothing to suggest acute deep venous thrombophlebitis Psychiatric awake and alert Neurologic moves all 4 extremities Plan: This patient was extubated the evening of 03/14/2017. He has done well from a pulmonary standpoint since that time. We will sign off. Please reconsult as needed. Results - Labs CBC & BMP: 03/17/17 05:25 03/17/17 05:25
--- NOTE | 2017-03-17 13:42 | Nephrology Progress Note ---
Nephrology - PN: Subj Interval history: He is awake and alert. He denies shortness of breath. Exam (PN)-Nephrology - Vital Signs Vital signs: Period Temp Pulse Resp BP Sys/Post Pulse Ox Last 24 Hr 97.8 F-98.8 F 81-85 9-24 114-138/59-77 95-100 Exam: ENT: Normal Cardiovascular: Regular rate and rhythm. No murmur rub or gallop Lungs: Clear Extremities: No edema - Lab 03/17/17 05:25 03/17/17 05:25 Most recent lab results ABG pH 7.348 (7.35-7.45) L 03/16/17 08:16 ABG pCO2 40.1 MM HG (35-48) 03/16/17 08:16 ABG pO2 92.6 MM HG (80-95) 03/16/17 08:16 ABG HCO3 21.5 MMOL/L (20-26) 03/16/17 08:16 ABG O2 Saturation 96.3 % (95-100) 03/16/17 08:16 Calcium 7.4 MG/DL (8.5-10.1) L 03/17/17 05:25 Phosphorus 8.2 MG/DL (2.5-4.9) H 03/16/17 05:03 Magnesium 4.2 MG/DL (1.8-2.4) H 03/17/17 05:25 Assessment and Plan (1) Acute hypoxemic respiratory failure Status: Acute Assessment and plan: 61-year-old man admitted with: * Bilateral pneumonia. 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 Baseline creatinine between 3 and 4. Fluid balance neutral. IV rate decreased * Acute on chronic renal failure. Renal function slightly improved * Nephrotic syndrome * Diabetes mellitus * Cardiomyopathy * Hypertension Current Visit: Yes (2) Bilateral pneumonia Status: Acute Current Visit: Yes (3) Cardiomyopathy Status: Chronic Current Visit: Yes (4) Chronic kidney disease, stage IV (severe) Status: Chronic Current Visit: Yes (5) Diabetes Status: Chronic Current Visit: Yes Qualifiers: Diabetes mellitus type: type 1 Diabetes mellitus complication status: with kidney complications Diabetes mellitus complication detail: with chronic kidney disease Chronic kidney disease stage: stage 4 (severe) Qualified Code (s): E10.22 - Type 1 diabetes mellitus with diabetic chronic kidney disease; N18.4 - Chronic kidney disease, stage 4 (severe) (6) Hypertension Status: Chronic Current Visit: Yes
--- NOTE | 2017-03-17 15:39 | Hospitalist Progress Note ---
Assessment and Plan (1) Congestive heart failure Status: Acute Current Visit: Yes Qualifiers: Qualified Code(s): I50.9 - Heart failure, unspecified (2) Diabetes Status: Chronic Current Visit: Yes Qualifiers: Qualified Code(s): E10.22 - Type 1 diabetes mellitus with diabetic chronic kidney disease; N18.4 - Chronic kidney disease, stage 4 (severe) (3) Chronic kidney disease, stage IV (severe) Status: Chronic Current Visit: Yes (4) Bilateral pneumonia Status: Acute Current Visit: Yes (5) Acute hypoxemic respiratory failure Status: Acute Current Visit: Yes (6) Hypoglycemia Status: Resolved Current Visit: Yes Hospitalist: Subjective Interval history: No acute events overnight. Creatinine slightly down today. On zosyn for bilateral pneumonia. Exam - Constitutional Vitals: Period Temp Pulse Resp BP Sys/Post Pulse Ox Last 24 Hr 97.8 F-98.8 F 78-85 15-24 118-138/66-77 95-100 General appearance: normal weight - Head Head exam: Present: normocephalic, atraumatic - Eye Eye exam: Present: EOMI Pupils: Present: ASHLY - ENT ENT exam: Present: normal exam - Neck Neck exam: Present: normal inspection - Respiratory Respiratory exam: Present: clear to auscultation bilaterally. Absent: rhonchi, wheezes - Cardiovascular Cardiovascular exam: Present: regular rate and rhythm - GI/Abdominal GI/Abdominal exam: Present: normal bowel sounds, soft. Absent: tenderness, rebound - Extremities Exam Extremities exam: Present: normal inspection - Back Exam Back exam: Present: normal inspection - Neurological Exam Neurological exam: Present: alert, oriented X3 - Psychiatric Psychiatric exam: Present: normal affect, normal mood - Skin Skin exam: Present: warm, intact Results - Labs CBC & BMP: 03/17/17 05:25 03/17/17 05:25
--- NOTE | 2017-03-17 17:35 | Cardiology Progress Note ---
Juan A Bruner Vanessa, RN, am scribing for, and in the presence of, Alfred Tinajero MD 17:32. Assessment and Plan - Time spent with patient Time spent with patient: Greater than 30 minutes (1) Congestive heart failure Status: Acute Assessment and plan: CHF is certainly multifactorial. Patient's worsened cardiomyopathy can exacerbate heart failure episode. His BUN and creatinine are increasing, and severe renal dysfunction with volume overload are contributing factors to CHF. Continue to monitor him for this. Current Visit: Yes Qualifiers: Congestive heart failure type: unspecified congestive heart failure type Congestive heart failure chronicity: acute on chronic Qualified Code(s): I50.9 - Heart failure, unspecified (2) Cardiomyopathy Status: Chronic Assessment and plan: Per echocardiogram this admission, LV ejection fraction of 20% with severe global hypokinesis. Due to severe renal dysfunction, cannot add ANKITA inhibitor or ARB. He may very well need an AICD/biventricular pacemaker in the future. Current Visit: Yes (3) Hypertension Status: Chronic Assessment and plan: Blood pressure continues to be fairly well controlled. Continue current medication regimen. Current Visit: Yes (4) Bilateral pneumonia Status: Acute Assessment and plan: Per clinical findings, this is improved. Pulmonology is following also, and we will defer primary management to them. Current Visit: Yes (5) Chronic kidney disease, stage IV (severe) Status: Chronic Assessment and plan: Current creatinine of 5.0 and GFR 14. Nephrology is also following. Patient is not requiring hemodialysis. Current Visit: Yes (6) Diabetes Status: Chronic Assessment and plan: Continue current plan of care. Defer primary management to hospital medicine. Current Visit: Yes Qualifiers: Diabetes mellitus type: type 1 Diabetes mellitus complication status: with kidney complications Diabetes mellitus complication detail: with chronic kidney disease Chronic kidney disease stage: stage 4 (severe) Qualified Code (s): E10.22 - Type 1 diabetes mellitus with diabetic chronic kidney disease; N18.4 - Chronic kidney disease, stage 4 (severe) (7) Dyslipidemia Status: Chronic Assessment and plan: Resume statin when able to. It is noted that he is receiving tube feedings at this time, and is not taking by mouth medications. Also noted that patient had a swallowing study at the bedside today and showed overt/S of aspiration with thin and thickened liquids. Bedside swallowing study to be repeated on 03/18. Current Visit: Yes Cardiology - PN: Subj Interval history: PRIMARY DATA COMMUNICATIONS ANALYST: DR. JACKY TINAJERO PCP: [facility] Mr. Mantilla 61-year-old male past medical history of hypertension, CHF, diabetes mellitus, CKD stage IV, and cardiomyopathy with significantly reduced ejection fraction this admission to 20% with grade 3 diastolic dysfunction. He is admitted now with an altered mental status, found to have a blood glucose of 40 prior to arrival, respiratory distress which required intubation. He has been treated for pneumonia, CHF, and he has improved. Yesterday he was transferred from the ICU to telemetry, and he has done well overnight. Today, he is awake and alert. He is resting quietly, and there is no acute distress noted. Patient is appropriate, but he does appear fatigued today. He does deny chest discomfort, shortness of breath, or other complaint at this time. There is some sputum production in bedside emesis basin that appears to have some old blood mixed in. Nursing staff reports earlier this morning, patient had to have his NG tube replaced due to previous NG tube no longer able to be flushed. Patient tolerated this fair but did have significant gag reflex and cough, and since placement he has been noted to have production of sputum with appearance of old blood. Left nare appears to have some dried old blood also. No bright red bleeding is seen. Chest x-ray reveals appropriate tube placement. Labs reviewed. His H&H has trended down consecutively over the past few days, and today hematocrit is 25.8. Sodium level 146, potassium is 5.1. He is significantly hypermagnesemic with magnesium level of 4.2. BNP level drawn yesterday afternoon was 4135, but his creatinine is noted at 5.0 today with a GFR of 14. Urine output has decreased over the past few days, and his weight is increased also over the past 3 days. Telemetry monitoring reveals sinus rhythm with pulse rate in the 80s, and there has been no disturbance. BP is stable averaging 135/80. General he is about the same. His biggest issues are noncardiac. We will continue to monitor the patient. Exam (Progress Note) - Constitutional Vitals: Period Temp Pulse Resp BP Sys/Post Pulse Ox Last 24 Hr 97.8 F-98.8 F 81-85 9-24 114-138/59-77 95-100 Exam: General appearance: no acute distress, over weight, appears fatigued today. - Head Head exam: Present: normal inspection. Absent: contusion, hematoma, laceration - Eye Eye exam: Absent: periorbital swelling, laceration to eyelids Pupils: Present: ASHLY. Absent: dilated, irregular - ENT ENT exam: Present: normal external ear exam - Neck Neck exam: Present: normal inspection. Absent: tenderness - Respiratory Respiratory exam: Present: other (coarse breath sounds but overall clear to auscultation). Absent: rhonchi, stridor, wheezes - Cardiovascular Cardiovascular exam: Present: regular rate and rhythm. Absent: bradycardia, diastolic murmur, irregular rhythm, JVD, systolic murmur, tachycardia - GI/Abdominal GI/Abdominal exam: Present: normal bowel sounds, soft. Absent: distended, firm , tenderness - Extremities Exam Extremities exam: Present: normal capillary refill, edema (pretibial, 1+) - Back Exam Back exam: Present: normal inspection - Neurological Exam Neurological exam: Present: alert, oriented X3 - Psychiatric Psychiatric exam: Present: Flat effect, normal mood. He appears to be withdrawn. Absent: agitated, anxious - Skin Skin exam: Present: warm, dry. Absent: cyanosis, diaphoretic extent make eye contact Result/EKG - Labs CBC & BMP: 03/17/17 05:25 03/17/17 05:25 Lab Results: I have reviewed the past 24 hour labs Labs: Laboratory Results - last 24 hr 03/16/17 03/16/17 03/17/17 11:48 17:36 00:34 WBC RBC Hgb Hct MCV MCH MCHC RDW Plt Count MPV Neut % (Auto) Lymph % (Auto) [place] % (Auto) Eos % (Auto) Baso % (Auto) Neut # (Auto) Lymph # (Auto) [place] # (Auto) Eos # (Auto) Baso # (Auto) Immature Gran % Nucleated RBC % Immature Gran # Nucleated RBCs # Sodium Potassium Chloride Carbon Dioxide Anion Gap BUN Creatinine GFR Calculation BUN/Creatinine Ratio Glucose POC Glucose 147 H 178 H 214 H Calculated Osmolality Calcium Magnesium 03/17/17 03/17/17 03/17/17 05:25 05:25 05:26 WBC 7.3 RBC 2.84 L Hgb 8.1 L Hct 25.8 L MCV 90.8 MCH 29 MCHC 31.4 L RDW 18.3 H Plt Count 312 MPV 10.6 Neut % (Auto) 77.0 H Lymph % (Auto) 10.8 L [place] % (Auto) 6.3 Eos % (Auto) 5.3 Baso % (Auto) 0.1 Neut # (Auto) 5.7 Lymph # (Auto) 0.8 L [place] # (Auto) 0.5 Eos # (Auto) 0.4 Baso # (Auto) 0.0 Immature Gran % 0.5 Nucleated RBC % 0.0 Immature Gran # 0.04 Nucleated RBCs # 0.00 Sodium 146 H Potassium 5.1 Chloride 115 H Carbon Dioxide 22 Anion Gap 14.1 BUN 116 H Creatinine 5.00 H GFR Calculation 14 BUN/Creatinine Ratio 23.00 H Glucose 170 H POC Glucose 185 H Calculated Osmolality 330.6 H Calcium 7.4 L Magnesium 4.2 H 03/17/17 07:38 WBC RBC Hgb Hct MCV MCH MCHC RDW Plt Count MPV Neut % (Auto) Lymph % (Auto) [place] % (Auto) Eos % (Auto) Baso % (Auto) Neut # (Auto) Lymph # (Auto) [place] # (Auto) Eos # (Auto) Baso # (Auto) Immature Gran % Nucleated RBC % Immature Gran # Nucleated RBCs # Sodium Potassium Chloride Carbon Dioxide Anion Gap BUN Creatinine GFR Calculation BUN/Creatinine Ratio Glucose POC Glucose 167 H Calculated Osmolality Calcium Magnesium - Impressions Impressions: Telemetry sinus rhythm. - EKG EKG results: interpreted by me, no acute changes EKG shows: sinus rhythm (Pulse rate 80s; no ectopy/sustained dysrhythmia) IFaisal John Timothy, MD, personally performed the services described in this documentation, ascribed by Shania Velazco RN in my presence, and it is both accurate and complete [id number] .
[2017-03-18] MEDS: SODIUM CHLORIDE 0.9% 1,000 ML IV SCH ×2 (00:39→17:34)
[2017-03-18] MEDS: INSULIN REGULAR 100 UNIT/ML SUBCUT SCH ×4 (01:01→18:00)
[2017-03-18] MEDS: ALBUTEROL/IPRATROPIUM 3 ML NEB RESP TX SCH ×6 (03:30→22:46)
[2017-03-18 05:52] LABS: Basophils % 0.2 % (0.0-0.8); Eosinophils # 0.5 10*3/uL (0.0-0.87); Eosinophils % 4.7 % (0.00-10.9); Hematocrit 27.1 VOL% (42.0-52.0); Hemoglobin 8.4 GM/DL (14.0-18.0); Immature Granulocytes % 0.5 %; Immature Granulocytes Absolute 0.05 #; Lymphocytes % 10.3 % (21.2-54.2); Mean Corpuscular Hemoglobin 29 PG (27-34); Mean Corpuscular Volume 93.8 FL (87-102); Mean Platelet Volume 10.3 FL (9.6-12.0); Monocytes # 0.5 10*3/uL (0.11-0.8); Monocytes % 5.5 % (1.7-12.7); Neutrophils # 7.6 10*3/uL (1.4-7.4); Neutrophils % 78.8 % (38.7-73.9); Platelet Count 346 T/CUMM (130-400); Red Blood Count 2.89 MC/CUMM (3.8-5.5); Red Cell Distribution Width 18.6 % (9.3-17.3); White Blood Count 9.6 T/CUMM (4-12)
[2017-03-18 06:14] LABS: Calcium 7.7 MG/DL (8.5-10.1); Magnesium 4.2 MG/DL (1.8-2.4); Osmolality,Calculated 331.1 MOS/KG (273-304)
[2017-03-18] MEDS: CYANOCOBALAMIN 500 MCG TABLET PO SCH (09:37)
[2017-03-18] MEDS: ASPIRIN CHEW 81 MG TABLET PO SCH (09:38)
[2017-03-18] MEDS: INSULIN NPH 100 UNIT/ML SUBCUT SCH ×2 (09:38→20:46)
[2017-03-18] MEDS: PIPERACILLIN/TAZOBACTAM 3,375 MG in SODIUM CHLORIDE 0.9% 100 ML IV SCH ×2 (09:38→20:37)
[2017-03-18] MEDS: CARVEDILOL 6.25 MG TABLET PO SCH ×2 (09:38→20:38)
[2017-03-18] MEDS: LANSOPRAZOLE ODT 30 MG TABLET PER TUBE SCH (09:38)
[2017-03-18] MEDS: FOLIC ACID 1 MG TABLET PO SCH (09:38)
[2017-03-18] MEDS: DESITIN 4OZ/NYSTATIN 15 GRAM MIXTURE PASTE TOP SCH ×2 (10:03→20:38)
--- NOTE | 2017-03-18 15:25 | XRay Report ---
Portable chest Date: 03/18/2017 Clinical history: Pulmonary edema Comparison: 03/17/2017 Technique: Portable AP sitting chest Findings: Stable cardiomegaly with nasogastric tube in the stomach. Decreased parenchymal findings in the lungs with minimally smaller pleural effusions. Decreased hilar density/less prominent pulmonary vasculature. Degenerative changes are noted with old healed left clavicular fracture. Impression: Improved pulmonary edema with smaller pleural effusions. PROCEDURE INTERPRETED AT [facility] DEPARTMENT OF RADIOLOGY Final Report Signed by: Dr. Isha Stewart
--- NOTE | 2017-03-18 16:07 | Hospitalist Progress Note ---
Assessment and Plan (1) Congestive heart failure Status: Acute Current Visit: Yes Qualifiers: Qualified Code(s): I50.9 - Heart failure, unspecified (2) Diabetes Status: Chronic Current Visit: Yes Qualifiers: Qualified Code(s): E10.22 - Type 1 diabetes mellitus with diabetic chronic kidney disease; N18.4 - Chronic kidney disease, stage 4 (severe) (3) Chronic kidney disease, stage IV (severe) Status: Chronic Current Visit: Yes (4) Bilateral pneumonia Status: Acute Current Visit: Yes (5) Acute hypoxemic respiratory failure Status: Acute Current Visit: Yes (6) Hypoglycemia Status: Resolved Current Visit: Yes Hospitalist: Subjective Interval history: Patient asleep on entering room. He wakes up and answers questions, is oriented to person, place and time. I asked if he drinks alcohol and says no then ask "why." He worked with physical therapy. But he continues to fail his speech evaluations. His BNP continues to rise. His CXR looks better today. Creatinine is unchanged. Exam - Constitutional Vitals: Period Temp Pulse Resp BP Sys/Post Pulse Ox Last 24 Hr 98.7 F-99.5 F 71-86 16-20 130-152/69-81 95-100 General appearance: normal weight - Head Head exam: Present: normocephalic, atraumatic - Eye Eye exam: Present: EOMI Pupils: Present: ASHLY - ENT ENT exam: Present: normal exam - Neck Neck exam: Present: normal inspection - Respiratory Respiratory exam: Present: clear to auscultation bilaterally. Absent: rhonchi, wheezes - Cardiovascular Cardiovascular exam: Present: regular rate and rhythm - GI/Abdominal GI/Abdominal exam: Present: normal bowel sounds, soft. Absent: tenderness, rebound - Extremities Exam Extremities exam: Present: normal inspection - Back Exam Back exam: Present: normal inspection - Neurological Exam Neurological exam: Present: alert, oriented X3 - Psychiatric Psychiatric exam: Present: normal affect, normal mood - Skin Skin exam: Present: warm, intact Results - Labs CBC & BMP: 03/18/17 05:01 03/18/17 05:01
--- NOTE | 2017-03-18 16:11 | Cardiology Progress Note ---
Juan A Bruner Vanessa, RN, am scribing for, and in the presence of, Alfred Tinajero MD 16:07. Assessment and Plan - Time spent with patient Time spent with patient: Greater than 30 minutes (1) Congestive heart failure Status: Acute Assessment and plan: CHF is certainly multifactorial. Patient's worsened cardiomyopathy can exacerbate heart failure episode. His BUN and creatinine are increasing, and severe renal dysfunction with volume overload are contributing factors to CHF. We will continue to monitor this closely. His elevated BNP is probably multifactorial. Current Visit: Yes Qualifiers: Congestive heart failure type: unspecified congestive heart failure type Congestive heart failure chronicity: acute on chronic Qualified Code(s): I50.9 - Heart failure, unspecified (2) Cardiomyopathy Status: Chronic Assessment and plan: Per echocardiogram this admission, LV ejection fraction of 20% with severe global hypokinesis. Due to severe renal dysfunction, cannot add ANKITA inhibitor or ARB. He may very well need an AICD/biventricular pacemaker in the future. At present the patient is not a good candidate for such. Current Visit: Yes (3) Hypertension Status: Chronic Assessment and plan: This remains overall fairly well controlled. Continue current medication regimen. Current Visit: Yes (4) Bilateral pneumonia Status: Acute Assessment and plan: Per clinical findings, this is improved. Pulmonology is following also, and we will defer primary management to them. Current Visit: Yes (5) Chronic kidney disease, stage IV (severe) Status: Chronic Assessment and plan: Current creatinine of 4.9 with GFR 14 and BUN 109. Nephrology is also following. Patient is not requiring hemodialysis at this time. Current Visit: Yes (6) Diabetes Status: Chronic Assessment and plan: Continue current plan of care. Defer primary management to hospital medicine. Current Visit: Yes Qualifiers: Diabetes mellitus type: type 1 Diabetes mellitus complication status: with kidney complications Diabetes mellitus complication detail: with chronic kidney disease Chronic kidney disease stage: stage 4 (severe) Qualified Code (s): E10.22 - Type 1 diabetes mellitus with diabetic chronic kidney disease; N18.4 - Chronic kidney disease, stage 4 (severe) (7) Dyslipidemia Status: Chronic Assessment and plan: Resume statin when able to. It is noted that he is receiving tube feedings at this time, and is not taking by mouth medications. Noted that today and yesterday patient failed swallowing study 2 with overt s/s of aspiration. Current Visit: Yes Cardiology - PN: Subj Interval history: PRIMARY ELECTRONICS ENGINEER: DR. JACKY TINAJERO PCP: [facility] Mr. Mantilla is a 61 year old male who is admitted after episode of altered mental status and found to have blood glucose of 40, and he has subsequent respiratory distress and has since been treated for pneumonia and CHF. He has done reasonably well since he was transferred from ICU to telemetry a couple days ago. He is awake this morning watching TV quietly. Patient does not appear to be in any acute distress or have an obvious need noted. After his NG tube placement yesterday, he has been noted to have sputum production with old blood tinged. He continues to have a wet cough today with yellow sputum production and continued blood-tinged. Affect seems to be flatter today, and he does not offer much verbal response at all. He does deny acute dyspnea, chest pain, or other discomfort by shaking his head "no". Blood pressures have been stable, and he remains in sinus rhythm with pulse rate 70-80. Labs reviewed. Stable H& H of 8.4 and 27.1. Sodium is 149, potassium is 5.0, and magnesium is 4.2. His creatinine is 4.9 with a BUN of 109 and GFR of 14. BNP level drawn this morning is greater than 5000. Chest x-ray per report is improved. A cardiac standpoint he is had no deterioration or changes but his general condition is not necessarily improved. Exam (Progress Note) - Constitutional Vitals: Period Temp Pulse Resp BP Sys/Post Pulse Ox Last 24 Hr 98.2 F-99.5 F 71-86 16-20 130-152/68-81 95-100 Exam: General appearance: no acute distress, over weight, appears fatigued today. - Head Head exam: Present: normal inspection. Absent: contusion, hematoma, laceration - Eye Eye exam: Absent: periorbital swelling, laceration to eyelids Pupils: Present: ASHLY. Absent: dilated, irregular - ENT ENT exam: Present: normal external ear exam - Neck Neck exam: Present: normal inspection. Absent: tenderness - Respiratory Respiratory exam: Present: other (coarse breath sounds but overall clear to auscultation). Absent: rhonchi, stridor, wheezes - Cardiovascular Cardiovascular exam: Present: regular rate and rhythm. Absent: bradycardia, diastolic murmur, irregular rhythm, JVD, systolic murmur, tachycardia - GI/Abdominal GI/Abdominal exam: Present: normal bowel sounds, soft. Absent: distended, firm , tenderness - Extremities Exam Extremities exam: Present: normal capillary refill, edema (pretibial, 1+) - Back Exam Back exam: Present: normal inspection - Neurological Exam Neurological exam: Present: alert, oriented X3 - Psychiatric Psychiatric exam: Present: Flat effect, normal mood. He appears to be withdrawn. Absent: agitated, anxious - Skin Skin exam: Present: warm, dry. Absent: cyanosis, diaphoretic extent make eye contact Result/EKG - Labs CBC & BMP: 03/18/17 05:01 03/18/17 05:01 Lab Results: I have reviewed the past 24 hour labs Labs: Laboratory Results - last 24 hr 03/17/17 03/17/17 03/17/17 15:13 19:52 20:39 WBC RBC Hgb Hct MCV MCH MCHC RDW Plt Count MPV Neut % (Auto) Lymph % (Auto) [place] % (Auto) Eos % (Auto) Baso % (Auto) Neut # (Auto) Lymph # (Auto) [place] # (Auto) Eos # (Auto) Baso # (Auto) Immature Gran % Nucleated RBC % Immature Gran # Nucleated RBCs # Sodium Potassium Chloride Carbon Dioxide Anion Gap BUN Creatinine GFR Calculation BUN/Creatinine Ratio Glucose POC Glucose 141 H 185 H 199 H Calculated Osmolality Calcium Magnesium B-Natriuretic Peptide 03/18/17 03/18/17 03/18/17 00:38 05:01 05:01 WBC 9.6 D RBC 2.89 L Hgb 8.4 L Hct 27.1 L MCV 93.8 MCH 29 MCHC 31.0 L RDW 18.6 H Plt Count 346 MPV 10.3 Neut % (Auto) 78.8 H Lymph % (Auto) 10.3 L [place] % (Auto) 5.5 Eos % (Auto) 4.7 Baso % (Auto) 0.2 Neut # (Auto) 7.6 H Lymph # (Auto) 1.0 L [place] # (Auto) 0.5 Eos # (Auto) 0.5 Baso # (Auto) 0.0 Immature Gran % 0.5 Nucleated RBC % 0.0 Immature Gran # 0.05 Nucleated RBCs # 0.00 Sodium 149 H Potassium 5.0 Chloride 119 H Carbon Dioxide 23 Anion Gap 12.0 BUN 109 H Creatinine 4.90 H GFR Calculation 14 BUN/Creatinine Ratio 22.00 H Glucose 128 H POC Glucose 204 H Calculated Osmolality 331.1 H Calcium 7.7 L Magnesium 4.2 H B-Natriuretic Peptide 03/18/17 05:01 WBC RBC Hgb Hct MCV MCH MCHC RDW Plt Count MPV Neut % (Auto) Lymph % (Auto) [place] % (Auto) Eos % (Auto) Baso % (Auto) Neut # (Auto) Lymph # (Auto) [place] # (Auto) Eos # (Auto) Baso # (Auto) Immature Gran % Nucleated RBC % Immature Gran # Nucleated RBCs # Sodium Potassium Chloride Carbon Dioxide Anion Gap BUN Creatinine GFR Calculation BUN/Creatinine Ratio Glucose POC Glucose Calculated Osmolality Calcium Magnesium B-Natriuretic Peptide > 5000 H - Impressions Impressions: Telemetry continued to show sinus rhythm. Said no dysrhythmias. - EKG EKG results: interpreted by me, no acute changes EKG shows: sinus rhythm IFaisal John Timothy, MD, personally performed the services described in this documentation, ascribed by Shania Velazco RN in my presence, and it is both accurate and complete 611 .
--- NOTE | 2017-03-18 16:25 | Nephrology Progress Note ---
Nephrology - PN: Subj Interval history: He denies shortness of breath. He's had no chest pain Exam (PN)-Nephrology - Vital Signs Vital signs: Period Temp Pulse Resp BP Sys/Post Pulse Ox Last 24 Hr 98.7 F-99.5 F 71-86 16-20 130-152/69-81 95-100 Exam: ENT: Normal Cardiovascular: Regular rate and rhythm. No murmur rub or gallop Lungs: Clear Extremities: No edema - Lab 03/18/17 05:01 03/18/17 05:01 Most recent lab results ABG pH 7.348 (7.35-7.45) L 03/16/17 08:16 ABG pCO2 40.1 MM HG (35-48) 03/16/17 08:16 ABG pO2 92.6 MM HG (80-95) 03/16/17 08:16 ABG HCO3 21.5 MMOL/L (20-26) 03/16/17 08:16 ABG O2 Saturation 96.3 % (95-100) 03/16/17 08:16 Calcium 7.7 MG/DL (8.5-10.1) L 03/18/17 05:01 Phosphorus 8.2 MG/DL (2.5-4.9) H 03/16/17 05:03 Magnesium 4.2 MG/DL (1.8-2.4) H 03/18/17 05:01 Assessment and Plan (1) Acute hypoxemic respiratory failure Status: Acute Assessment and plan: 61-year-old man admitted with: * Bilateral pneumonia. 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 Baseline creatinine between 3 and 4. * Acute on chronic renal failure. Renal function slightly improved. Fluid balance negative * Nephrotic syndrome * Diabetes mellitus * Cardiomyopathy * Hypertension Current Visit: Yes (2) Bilateral pneumonia Status: Acute Current Visit: Yes (3) Cardiomyopathy Status: Chronic Current Visit: Yes (4) Chronic kidney disease, stage IV (severe) Status: Chronic Current Visit: Yes (5) Diabetes Status: Chronic Current Visit: Yes Qualifiers: Diabetes mellitus type: type 1 Diabetes mellitus complication status: with kidney complications Diabetes mellitus complication detail: with chronic kidney disease Chronic kidney disease stage: stage 4 (severe) Qualified Code (s): E10.22 - Type 1 diabetes mellitus with diabetic chronic kidney disease; N18.4 - Chronic kidney disease, stage 4 (severe) (6) Hypertension Status: Chronic Current Visit: Yes
[2017-03-19] MEDS: INSULIN REGULAR 100 UNIT/ML SUBCUT SCH ×4 (00:27→18:07)
[2017-03-19] MEDS: ALBUTEROL/IPRATROPIUM 3 ML NEB RESP TX SCH ×6 (02:24→18:53)
[2017-03-19 05:55] LABS: Basophils % 0.2 % (0.0-0.8); Eosinophils # 0.4 10*3/uL (0.0-0.87); Eosinophils % 4.7 % (0.00-10.9); Hematocrit 25.9 VOL% (42.0-52.0); Hemoglobin 7.8 GM/DL (14.0-18.0); Immature Granulocytes % 0.5 %; Immature Granulocytes Absolute 0.05 #; Lymphocytes # 1.1 10*3/uL (1.4-4.0); Lymphocytes % 11.4 % (21.2-54.2); Mean Corpuscular HGB Conc 30.1 GM/DL (32-36); Mean Corpuscular Hemoglobin 29 PG (27-34); Mean Corpuscular Volume 95.2 FL (87-102); Mean Platelet Volume 10.2 FL (9.6-12.0); Monocytes # 0.5 10*3/uL (0.11-0.8); Monocytes % 4.9 % (1.7-12.7); NRBC # 0.02 10*3/uL; Neutrophils # 7.4 10*3/uL (1.4-7.4); Neutrophils % 78.3 % (38.7-73.9); Platelet Count 360 T/CUMM (130-400); Red Blood Count 2.72 MC/CUMM (3.8-5.5); Red Cell Distribution Width 18.8 % (9.3-17.3); White Blood Count 9.4 T/CUMM (4-12)
[2017-03-19 06:09] LABS: Calcium 8.2 MG/DL (8.5-10.1); Osmolality,Calculated 332.7 MOS/KG (273-304); Potassium 4.9 MMOL/L (3.5-5.1)
[2017-03-19 06:13] LABS: Albumin 1.9 G/DL (3.4-5.0); Bilirubin,Direct 0.7 MG/DL (0.0-0.20); Bilirubin,Indirect 0.4 MG/DL (0.0-1.0); Bilirubin,Total 1.1 MG/DL (0.2-1.0); Calcium 8.1 MG/DL (8.5-10.1); Magnesium 4.2 MG/DL (1.8-2.4); Osmolality,Calculated 335.6 MOS/KG (273-304); Total Protein 6.2 G/DL (6.4-8.3)
[2017-03-19 06:19] LABS: Magnesium 4.2 MG/DL (1.8-2.4); Phosphorous 4.9 MG/DL (2.5-4.9); Prealbumin 17.3 MG/DL (20-40)
[2017-03-19] MEDS: PIPERACILLIN/TAZOBACTAM 3,375 MG in SODIUM CHLORIDE 0.9% 100 ML IV SCH ×2 (09:01→20:36)
[2017-03-19] MEDS: INSULIN NPH 100 UNIT/ML SUBCUT SCH ×2 (09:08→21:14)
[2017-03-19] MEDS: LANSOPRAZOLE ODT 30 MG TABLET PER TUBE SCH (09:10)
[2017-03-19] MEDS: CARVEDILOL 6.25 MG TABLET PO SCH ×2 (09:10→20:40)
[2017-03-19] MEDS: CYANOCOBALAMIN 500 MCG TABLET PO SCH (09:11)
[2017-03-19] MEDS: FOLIC ACID 1 MG TABLET PO SCH (09:11)
[2017-03-19] MEDS: ASPIRIN CHEW 81 MG TABLET PO SCH (09:12)
[2017-03-19] MEDS: DESITIN 4OZ/NYSTATIN 15 GRAM MIXTURE PASTE TOP SCH ×2 (12:58→20:40)
--- NOTE | 2017-03-19 14:04 | Hospitalist Progress Note ---
Assessment and Plan (1) Congestive heart failure Status: Acute Assessment and plan: Cardiology assisting. Sid on admission. Now with SHANNON on CKD. CXR looks better. Current Visit: Yes Qualifiers: Congestive heart failure type: unspecified congestive heart failure type Congestive heart failure chronicity: acute on chronic Qualified Code(s): I50.9 - Heart failure, unspecified (2) Diabetes Status: Chronic Assessment and plan: Increasing NPH today Current Visit: Yes Qualifiers: Diabetes mellitus type: type 1 Diabetes mellitus complication status: with kidney complications Diabetes mellitus complication detail: with chronic kidney disease Chronic kidney disease stage: stage 4 (severe) Qualified Code (s): E10.22 - Type 1 diabetes mellitus with diabetic chronic kidney disease; N18.4 - Chronic kidney disease, stage 4 (severe) (3) Chronic kidney disease, stage IV (severe) Status: Chronic Assessment and plan: Now with worsening following diuresis Nephrology managing Current Visit: Yes (4) Bilateral pneumonia Status: Acute Assessment and plan: On Zosyn. Pulmonary has signed off. Current Visit: Yes (5) Acute hypoxemic respiratory failure Status: Resolved Assessment and plan: Initially intubated in the ICU now resolved. Current Visit: Yes (6) Hypoglycemia Status: Resolved Assessment and plan: On admission, AMS with glucose of 40. Current Visit: Yes Hospitalist: Subjective Interval history: No acute events overnight. Patient more awake for me today. Still getting tube feeds via NGT. Has failed swallow study twice. Hoping that once he wakes up more this will get better. Did well with physical therapy. According to chart he is down 4kg since yesterday. Creatinine is unchanged. Nephrology managing. Exam - Constitutional Vitals: Period Temp Pulse Resp BP Sys/Post Pulse Ox Last 24 Hr 98.3 F-99.7 F 75-82 12-20 130-147/66-85 96-99 General appearance: normal weight - Head Head exam: Present: normocephalic, atraumatic - Eye Eye exam: Present: EOMI Pupils: Present: ASHLY - ENT ENT exam: Present: normal exam - Neck Neck exam: Present: normal inspection - Respiratory Respiratory exam: Present: clear to auscultation bilaterally. Absent: rhonchi, wheezes - Cardiovascular Cardiovascular exam: Present: regular rate and rhythm - GI/Abdominal GI/Abdominal exam: Present: normal bowel sounds, soft. Absent: tenderness, rebound - Extremities Exam Extremities exam: Present: normal inspection - Back Exam Back exam: Present: normal inspection - Neurological Exam Neurological exam: Present: alert, oriented X3 - Psychiatric Psychiatric exam: Present: normal affect, normal mood - Skin Skin exam: Present: warm, intact Results - Labs CBC & BMP: 03/19/17 04:25 03/19/17 04:25
[2017-03-19] MEDS: SODIUM CHLORIDE 0.9% 1,000 ML IV SCH (14:38)
--- NOTE | 2017-03-19 15:20 | Nephrology Progress Note ---
Nephrology - PN: Subj Interval history: No new symptoms today. He appears comfortable. Exam (PN)-Nephrology - Vital Signs Vital signs: Period Temp Pulse Resp BP Sys/Post Pulse Ox Last 24 Hr 98.3 F-99.7 F 75-82 12-20 130-147/66-85 96-99 Exam: ENT: Normal Cardiovascular: Regular rate and rhythm. No murmur rub or gallop Lungs: Clear Extremities: No edema - Lab 03/19/17 04:25 03/19/17 04:25 Most recent lab results ABG pH 7.348 (7.35-7.45) L 03/16/17 08:16 ABG pCO2 40.1 MM HG (35-48) 03/16/17 08:16 ABG pO2 92.6 MM HG (80-95) 03/16/17 08:16 ABG HCO3 21.5 MMOL/L (20-26) 03/16/17 08:16 ABG O2 Saturation 96.3 % (95-100) 03/16/17 08:16 Calcium 8.1 MG/DL (8.5-10.1) L 03/19/17 04:25 Phosphorus 4.9 MG/DL (2.5-4.9) 03/19/17 04:25 Magnesium 4.2 MG/DL (1.8-2.4) H 03/19/17 04:25 Assessment and Plan (1) Acute hypoxemic respiratory failure Status: Resolved Assessment and plan: 61-year-old man admitted with: * Bilateral pneumonia. 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 Baseline creatinine between 3 and 4. * Acute on chronic renal failure. Renal function slightly improved. Fluid balance negative * Hypernatremia. IV fluids changed to one half normal saline * Nephrotic syndrome * Diabetes mellitus * Cardiomyopathy * Hypertension Current Visit: Yes (2) Bilateral pneumonia Status: Acute Current Visit: Yes (3) Cardiomyopathy Status: Chronic Current Visit: Yes (4) Chronic kidney disease, stage IV (severe) Status: Chronic Current Visit: Yes (5) Diabetes Status: Chronic Current Visit: Yes Qualifiers: Diabetes mellitus type: type 1 Diabetes mellitus complication status: with kidney complications Diabetes mellitus complication detail: with chronic kidney disease Chronic kidney disease stage: stage 4 (severe) Qualified Code (s): E10.22 - Type 1 diabetes mellitus with diabetic chronic kidney disease; N18.4 - Chronic kidney disease, stage 4 (severe) (6) Hypertension Status: Chronic Current Visit: Yes
--- NOTE | 2017-03-19 17:01 | Cardiology Progress Note ---
Juan A Bruner Vanessa, RN, am scribing for, and in the presence of, Alfred Tinajero MD 16:59. Assessment and Plan - Time spent with patient Time spent with patient: Greater than 30 minutes (1) Congestive heart failure Status: Acute Assessment and plan: CHF is certainly multifactorial. Patient's worsened cardiomyopathy definitely can exacerbate heart failure. His BUN and creatinine are increased without significant change the last several days. Severe renal dysfunction with volume overload are contributing factors to CHF. We will continue to monitor this closely. His chest x-ray yesterday revealed improvement of his vascular congestion. His volume status is in negative range and continues to be so we should be benefit to him. Current Visit: Yes Qualifiers: Congestive heart failure type: unspecified congestive heart failure type Congestive heart failure chronicity: acute on chronic Qualified Code(s): I50.9 - Heart failure, unspecified (2) Cardiomyopathy Status: Chronic Assessment and plan: Per echocardiogram this admission, LV ejection fraction of 20% with severe global hypokinesis. Due to severe renal dysfunction, cannot add ANKITA inhibitor or ARB. Most likely will need an AICD/biventricular pacemaker in the future. Current Visit: Yes (3) Hypertension Status: Chronic Assessment and plan: This remains overall fairly well controlled. Continue current medication regimen. Current Visit: Yes (4) Bilateral pneumonia Status: Acute Assessment and plan: Per clinical findings, this is improved. Primary medicine has signed off the case. Current Visit: Yes (5) Chronic kidney disease, stage IV (severe) Status: Chronic Assessment and plan: Current creatinine of 4.5 and GFR 16. Nephrology is also following. His BUN is decreased some even with negative fluid status. Patient is not requiring hemodialysis at this time. Current Visit: Yes (6) Diabetes Status: Chronic Assessment and plan: Continue current plan of care. Defer primary management to hospital medicine. Current Visit: Yes Qualifiers: Diabetes mellitus type: type 1 Diabetes mellitus complication status: with kidney complications Diabetes mellitus complication detail: with chronic kidney disease Chronic kidney disease stage: stage 4 (severe) Qualified Code (s): E10.22 - Type 1 diabetes mellitus with diabetic chronic kidney disease; N18.4 - Chronic kidney disease, stage 4 (severe) (7) Dyslipidemia Status: Chronic Assessment and plan: Resume statin when able to. Noted he is receiving tube feedings at this time and is not taking by mouth medications. Noted that today and yesterday patient failed swallowing study 2 with overt s/s of aspiration. Current Visit: Yes Cardiology - PN: Subj Interval history: PRIMARY GLOVE MACHINE OPERATOR: DR. JACKY TINAJERO PCP: [facility] Mr. Mantilla is awake and resting quietly this morning in bed. No acute changes or findings overnight in patient's hemodynamic status. Vitals have been stable overnight. Remains in a sinus rhythm without overt ectopy or arrhythmia. Labs reviewed. Medications reviewed. Cardiac-vanegas he is stable without change. Question raises whether or not this patient needs to be evaluated for LTAC/rehabilitation. Exam (Progress Note) - Constitutional Vitals: Period Temp Pulse Resp BP Sys/Post Pulse Ox Last 24 Hr 98.3 F-99.7 F 78-82 17-20 130-147/66-85 96-99 Exam: General appearance: no acute distress, over weight, appears fatigued today. Actually talking on the phone my arrival. - Head Head exam: Present: normal inspection. Absent: contusion, hematoma, laceration - Eye Eye exam: Absent: periorbital swelling, laceration to eyelids Pupils: Present: ASHLY. Absent: dilated, irregular - ENT ENT exam: Present: normal external ear exam - Neck Neck exam: Present: normal inspection. Absent: tenderness - Respiratory Respiratory exam: Present: other (coarse breath sounds but overall clear to auscultation). Absent: rhonchi, stridor, wheezes - Cardiovascular Cardiovascular exam: Present: regular rate and rhythm. Absent: bradycardia, diastolic murmur, irregular rhythm, JVD, systolic murmur, tachycardia - GI/Abdominal GI/Abdominal exam: Present: normal bowel sounds, soft. Absent: distended, firm , tenderness - Extremities Exam Extremities exam: Present: normal capillary refill, edema (pretibial, 1+) - Back Exam Back exam: Present: normal inspection - Neurological Exam Neurological exam: Present: alert, oriented X3 - Psychiatric Psychiatric exam: Present: Flat effect, normal mood. He appears to be withdrawn. Absent: agitated, anxious - Skin Skin exam: Present: warm, dry. Absent: cyanosis, diaphoretic extent make eye contact Result/EKG - Labs CBC & BMP: 03/19/17 04:25 03/19/17 04:25 Lab Results: I have reviewed the past 24 hour labs Labs: Laboratory Results - last 24 hr 03/18/17 03/18/17 03/18/17 11:52 16:43 17:53 WBC RBC Hgb Hct MCV MCH MCHC RDW Plt Count MPV Neut % (Auto) Lymph % (Auto) [place] % (Auto) Eos % (Auto) Baso % (Auto) Neut # (Auto) Lymph # (Auto) [place] # (Auto) Eos # (Auto) Baso # (Auto) Immature Gran % Nucleated RBC % Immature Gran # Nucleated RBCs # Sodium Potassium Chloride Carbon Dioxide Anion Gap BUN Creatinine GFR Calculation BUN/Creatinine Ratio Glucose POC Glucose 226 H 134 H Calculated Osmolality Calcium Phosphorus Magnesium Total Bilirubin Direct Bilirubin Indirect Bilirubin AST ALT Alkaline Phosphatase Ammonia 16 Total Protein Albumin Prealbumin 03/18/17 03/19/17 03/19/17 20:12 00:11 04:25 WBC RBC Hgb Hct MCV MCH MCHC RDW Plt Count MPV Neut % (Auto) Lymph % (Auto) [place] % (Auto) Eos % (Auto) Baso % (Auto) Neut # (Auto) Lymph # (Auto) [place] # (Auto) Eos # (Auto) Baso # (Auto) Immature Gran % Nucleated RBC % Immature Gran # Nucleated RBCs # Sodium Potassium Chloride Carbon Dioxide Anion Gap BUN Creatinine GFR Calculation BUN/Creatinine Ratio Glucose POC Glucose 183 H 232 H Calculated Osmolality Calcium Phosphorus 4.9 Magnesium 4.2 H Total Bilirubin Direct Bilirubin Indirect Bilirubin AST ALT Alkaline Phosphatase Ammonia Total Protein Albumin Prealbumin 17.3 L 03/19/17 03/19/17 03/19/17 04:25 04:25 04:25 WBC 9.4 RBC 2.72 L Hgb 7.8 L Hct 25.9 L MCV 95.2 MCH 29 MCHC 30.1 L RDW 18.8 H Plt Count 360 MPV 10.2 Neut % (Auto) 78.3 H Lymph % (Auto) 11.4 L [place] % (Auto) 4.9 Eos % (Auto) 4.7 Baso % (Auto) 0.2 Neut # (Auto) 7.4 Lymph # (Auto) 1.1 L [place] # (Auto) 0.5 Eos # (Auto) 0.4 Baso # (Auto) 0.0 Immature Gran % 0.5 Nucleated RBC % 0.2 Immature Gran # 0.05 Nucleated RBCs # 0.02 Sodium 152 H 153 H Potassium 4.9 5.0 Chloride 121 H 121 H Carbon Dioxide 23 22 Anion Gap 12.9 15.0 BUN 95 H D 96 H Creatinine 4.50 H 4.50 H GFR Calculation 16 16 BUN/Creatinine Ratio 21.00 H 21.00 H Glucose 158 H 155 H POC Glucose Calculated Osmolality 332.7 H 335.6 H Calcium 8.2 L 8.1 L Phosphorus Magnesium 4.2 H Total Bilirubin 1.10 H Direct Bilirubin 0.70 H Indirect Bilirubin 0.4 AST 91 H ALT 78 H Alkaline Phosphatase 613 H Ammonia Total Protein 6.2 L Albumin 1.9 L Prealbumin 03/19/17 03/19/17 06:30 07:34 WBC RBC Hgb Hct MCV MCH MCHC RDW Plt Count MPV Neut % (Auto) Lymph % (Auto) [place] % (Auto) Eos % (Auto) Baso % (Auto) Neut # (Auto) Lymph # (Auto) [place] # (Auto) Eos # (Auto) Baso # (Auto) Immature Gran % Nucleated RBC % Immature Gran # Nucleated RBCs # Sodium Potassium Chloride Carbon Dioxide Anion Gap BUN Creatinine GFR Calculation BUN/Creatinine Ratio Glucose POC Glucose 185 H 181 H Calculated Osmolality Calcium Phosphorus Magnesium Total Bilirubin Direct Bilirubin Indirect Bilirubin AST ALT Alkaline Phosphatase Ammonia Total Protein Albumin Prealbumin - Impressions Impressions: Telemetry with normal sinus rhythm without dysrhythmias. - EKG EKG results: interpreted by me, no acute changes EKG shows: sinus rhythm Faisal Bruner John Timothy, MD, personally performed the services described in this documentation, ascribed by Shania Velazco RN in my presence, and it is both accurate and complete 701 .
[2017-03-19] MEDS: SODIUM CHLORIDE 0.45% 1,000 ML IV SCH (17:52)
[2017-03-20] MEDS: INSULIN REGULAR 100 UNIT/ML SUBCUT SCH ×4 (00:01→18:11)
[2017-03-20] MEDS: ALBUTEROL/IPRATROPIUM 3 ML NEB RESP TX SCH ×5 (02:49→20:07)
[2017-03-20 05:02] LABS: Calcium 8.1 MG/DL (8.5-10.1); Potassium 4.7 MMOL/L (3.5-5.1)
[2017-03-20] MEDS: PIPERACILLIN/TAZOBACTAM 3,375 MG in SODIUM CHLORIDE 0.9% 100 ML IV SCH ×2 (10:13→21:36)
[2017-03-20] MEDS: CYANOCOBALAMIN 500 MCG TABLET PO SCH (10:14)
[2017-03-20] MEDS: FOLIC ACID 1 MG TABLET PO SCH (10:14)
[2017-03-20] MEDS: ASPIRIN CHEW 81 MG TABLET PO SCH (10:14)
[2017-03-20] MEDS: CARVEDILOL 6.25 MG TABLET PO SCH ×2 (10:14→21:43)
[2017-03-20] MEDS: INSULIN NPH 100 UNIT/ML SUBCUT SCH ×2 (10:15→21:37)
[2017-03-20] MEDS: DESITIN 4OZ/NYSTATIN 15 GRAM MIXTURE PASTE TOP SCH ×2 (10:15→21:43)
[2017-03-20] MEDS: LANSOPRAZOLE ODT 30 MG TABLET PER TUBE SCH (10:15)
--- NOTE | 2017-03-20 12:11 | Hospitalist Progress Note ---
Assessment and Plan - Time spent with patient Time spent with patient: Greater than 30 minutes (1) Congestive heart failure Status: Acute Current Visit: Yes Qualifiers: Congestive heart failure type: unspecified congestive heart failure type Congestive heart failure chronicity: acute on chronic Qualified Code(s): I50.9 - Heart failure, unspecified (2) Uncontrolled diabetes mellitus Status: Acute Current Visit: No (3) Lower extremity edema Status: Acute Current Visit: Yes Qualifiers: Laterality: bilateral Qualified Code(s): R60.0 - Localized edema (4) Hypertension Status: Chronic Current Visit: Yes (5) Chronic kidney disease, stage IV (severe) Status: Chronic Current Visit: Yes (6) Respiratory failure Status: Resolved Assessment and plan: Continue diuresis per nephrology and monitor renal function. Increase NPH insulin to 16 units BID and monitor FSG. Continue PT / OT To have a repeat swallow evaluation and hopefully wean off feeding tube Current Visit: Yes Qualifiers: Chronicity: acute (7) Nephrotic syndrome Status: Acute Current Visit: Yes (8) Hypernatremia Status: Acute Current Visit: Yes Hospitalist: Subjective Interval history: My first time seeing this patient who was admitted for resp failure due to fluid overload. Better per records. He was lying bed in no obvious distress. He denied any complains. Appears weak but I understand he is doing well with PT so far No fever Exam - Constitutional Vitals: Period Temp Pulse Resp BP Sys/Post Pulse Ox Last 24 Hr 97.2 F-98.4 F 72-83 12-20 131-144/71-81 95-99 Exam: General appearance: normal weight - Head Head exam: Present: normocephalic, atraumatic - Eye Eye exam: Present: EOMI Pupils: Present: ASHLY - ENT ENT exam: NGT in place - Neck Neck exam: Present: normal inspection - Respiratory Respiratory exam: Present: clear to auscultation bilaterally. Absent: rhonchi, wheezes - Cardiovascular Cardiovascular exam: Present: regular rate and rhythm - GI/Abdominal GI/Abdominal exam: Present: normal bowel sounds, soft. Absent: tenderness, rebound - Extremities Exam Extremities exam: Present: normal inspection - Back Exam Back exam: Present: normal inspection - Neurological Exam Neurological exam: Present: alert, oriented X3 - Psychiatric Psychiatric exam: Present: normal affect, normal mood - Skin Skin exam: Present: warm, intact Results - Labs CBC & BMP: 03/19/17 04:25 03/20/17 04:06 Lab Results: I have reviewed the past 24 hour labs
--- NOTE | 2017-03-20 13:01 | Nephrology Progress Note ---
Nephrology - PN: Subj Interval history: He is a little more alert today. No shortness of breath or chest pain. Exam (PN)-Nephrology - Vital Signs Vital signs: Period Temp Pulse Resp BP Sys/Post Pulse Ox Last 24 Hr 97.2 F-98.4 F 72-83 12-20 131-144/71-81 95-99 Exam: ENT: NG tube in place Cardiovascular: Regular rate and rhythm. No murmur rub or gallop Lungs: Clear Extremities: No edema - Lab 03/19/17 04:25 03/20/17 04:06 Most recent lab results ABG pH 7.348 (7.35-7.45) L 03/16/17 08:16 ABG pCO2 40.1 MM HG (35-48) 03/16/17 08:16 ABG pO2 92.6 MM HG (80-95) 03/16/17 08:16 ABG HCO3 21.5 MMOL/L (20-26) 03/16/17 08:16 ABG O2 Saturation 96.3 % (95-100) 03/16/17 08:16 Calcium 8.1 MG/DL (8.5-10.1) L 03/20/17 04:06 Phosphorus 4.9 MG/DL (2.5-4.9) 03/19/17 04:25 Magnesium 4.2 MG/DL (1.8-2.4) H 03/19/17 04:25 Assessment and Plan (1) Acute hypoxemic respiratory failure Status: Resolved Assessment and plan: 61-year-old man admitted with: * Bilateral pneumonia. 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 Baseline creatinine between 3 and 4. * Acute on chronic renal failure. Creatinine is slowly improving. Fluid balance negative * Hypernatremia. Sodium is higher today. IV fluid adjusted * Nephrotic syndrome * Diabetes mellitus * Cardiomyopathy * Hypertension Current Visit: Yes (2) Bilateral pneumonia Status: Acute Current Visit: Yes (3) Cardiomyopathy Status: Chronic Current Visit: Yes (4) Chronic kidney disease, stage IV (severe) Status: Chronic Current Visit: Yes (5) Diabetes Status: Chronic Current Visit: Yes Qualifiers: Diabetes mellitus type: type 1 Diabetes mellitus complication status: with kidney complications Diabetes mellitus complication detail: with chronic kidney disease Chronic kidney disease stage: stage 4 (severe) Qualified Code (s): E10.22 - Type 1 diabetes mellitus with diabetic chronic kidney disease; N18.4 - Chronic kidney disease, stage 4 (severe) (6) Hypertension Status: Chronic Current Visit: Yes
--- NOTE | 2017-03-20 13:36 | Cardiology Progress Note ---
<Celena Miller E - Last Filed: 03/20/17 13:33> Assessment and Plan - Time spent with patient Time spent with patient: Less than 30 minutes (1) Congestive heart failure Status: Acute Assessment and plan: CHF is certainly multifactorial. Patient's worsened cardiomyopathy definitely can exacerbate heart failure. His BUN and creatinine are increased without significant change the last several days. Creatinine down to 4.3 today. Severe renal dysfunction with volume overload are contributing factors to CHF. We will continue to monitor this closely. His volume status is in negative range and continues to be so we should be benefit to him. Current Visit: Yes Qualifiers: Congestive heart failure type: unspecified congestive heart failure type Congestive heart failure chronicity: acute on chronic Qualified Code(s): I50.9 - Heart failure, unspecified (2) Cardiomyopathy Status: Chronic Assessment and plan: Per echocardiogram this admission, LV ejection fraction of 20% with severe global hypokinesis. Due to severe renal dysfunction, cannot add ANKITA inhibitor or ARB. Most likely will need an AICD/biventricular pacemaker in the future. Current Visit: Yes (3) Bilateral pneumonia Status: Acute Assessment and plan: Per clinical findings, this is improved. Primary medicine has signed off the case. Current Visit: Yes (4) Chronic kidney disease, stage IV (severe) Status: Chronic Assessment and plan: Current creatinine of 4.3 and GFR 4.3. Nephrology is also following. His BUN is decreased some even with negative fluid status. Patient is not requiring hemodialysis at this time. Current Visit: Yes (5) Diabetes Status: Chronic Assessment and plan: Continue current plan of care. Defer primary management to hospital medicine. Current Visit: Yes Qualifiers: Diabetes mellitus type: type 1 Diabetes mellitus complication status: with kidney complications Diabetes mellitus complication detail: with chronic kidney disease Chronic kidney disease stage: stage 4 (severe) Qualified Code (s): E10.22 - Type 1 diabetes mellitus with diabetic chronic kidney disease; N18.4 - Chronic kidney disease, stage 4 (severe) (6) Dyslipidemia Status: Chronic Assessment and plan: Resume statin when able to. Noted he is receiving tube feedings at this time and is not taking by mouth medications. Noted that today and yesterday patient failed swallowing study 2 with overt s/s of aspiration. Current Visit: Yes (7) Hypertension Status: Chronic Assessment and plan: Currently well controlled. We will continue to monitor and make adjustments as needed. Current Visit: Yes Cardiology - PN: Subj Interval history: PRIMARY SUPERVISOR LOCOMOTIVE: DR. JACKY MALONE PCP: [facility] No acute changes or findings overnight in patient's hemodynamic status. He is resting upon exam but is easily arousable. He remains in sinus rhythm. From a cardiac standpoint, he is stable without change. There is question as to whether he needs to be evaluated for LTAC/rehabilitation. Exam (Progress Note) - Constitutional Vitals: Period Temp Pulse Resp BP Sys/Post Pulse Ox Last 24 Hr 97.2 F-98.4 F 72-83 12-20 131-144/71-81 95-99 Exam: General appearance: no acute distress, over weight, appears fatigued today. - Head Head exam: Present: normal inspection. Absent: contusion, hematoma, laceration - Eye Eye exam: Absent: periorbital swelling, laceration to eyelids Pupils: Present: ASHLY. Absent: dilated, irregular - ENT ENT exam: Present: normal external ear exam - Neck Neck exam: Present: normal inspection. Absent: tenderness - Respiratory Respiratory exam: Present: other (coarse breath sounds with bibasilar crackles but otherwise clear to auscultation). Absent: rhonchi, stridor, wheezes - Cardiovascular Cardiovascular exam: Present: regular rate and rhythm. Absent: bradycardia, diastolic murmur, irregular rhythm, JVD, systolic murmur, tachycardia - GI/Abdominal GI/Abdominal exam: Present: normal bowel sounds, soft. Absent: distended, firm , tenderness - Extremities Exam Extremities exam: Present: normal capillary refill, edema (pretibial, 1+) - Back Exam Back exam: Present: normal inspection - Neurological Exam Neurological exam: Present: alert, oriented X3 - Psychiatric Psychiatric exam: Present: Flat effect, normal mood. He appears to be withdrawn. Absent: agitated, anxious - Skin Skin exam: Present: warm, dry. Absent: cyanosis, diaphoretic extent make eye contact Result/EKG - Labs CBC & BMP: 03/19/17 04:25 03/20/17 04:06 Lab Results: I have reviewed the past 24 hour labs Labs: Laboratory Results - last 24 hr 03/19/17 03/19/17 03/19/17 17:57 20:49 23:52 Sodium Potassium Chloride Carbon Dioxide Anion Gap BUN Creatinine GFR Calculation BUN/Creatinine Ratio Glucose POC Glucose 224 H 227 H 177 H Calculated Osmolality Calcium 03/20/17 03/20/17 03/20/17 04:06 06:17 11:53 Sodium 157 H Potassium 4.7 Chloride 124 H Carbon Dioxide 24 Anion Gap 13.7 BUN 94 H Creatinine 4.30 H GFR Calculation 16 BUN/Creatinine Ratio 21.00 H Glucose 91 POC Glucose 110 H 217 H Calculated Osmolality 339.0 H Calcium 8.1 L - EKG EKG results: interpreted by me, sinus rhythm <Alfred Malone - Last Filed: 03/20/17 18:09> Assessment and Plan (1) Congestive heart failure Status: Acute Current Visit: Yes Qualifiers: Congestive heart failure type: unspecified congestive heart failure type Congestive heart failure chronicity: acute on chronic Qualified Code(s): I50.9 - Heart failure, unspecified (2) Cardiomyopathy Status: Chronic Current Visit: Yes (3) Hypertension Status: Chronic Current Visit: Yes (4) Bilateral pneumonia Status: Acute Current Visit: Yes (5) Chronic kidney disease, stage IV (severe) Status: Chronic Current Visit: Yes (6) Diabetes Status: Chronic Current Visit: Yes Qualifiers: Diabetes mellitus type: type 1 Diabetes mellitus complication status: with kidney complications Diabetes mellitus complication detail: with chronic kidney disease Chronic kidney disease stage: stage 4 (severe) Qualified Code (s): E10.22 - Type 1 diabetes mellitus with diabetic chronic kidney disease; N18.4 - Chronic kidney disease, stage 4 (severe) (7) Dyslipidemia Status: Chronic Current Visit: Yes Cardiology - PN: Subj Interval history: Patient personally evaluated and examined and chart reviewed. I discussed case with Celena Miller ORDER PICKER. I agree with assessment and plan. This patient is appears to be making slow progress but he will probably benefit from going to rehabilitation or LTAC. His cardiac status remained stable. Exam (Progress Note) - Constitutional Vitals: Period Temp Pulse Resp BP Sys/Post Pulse Ox Last 24 Hr 97.2 F-98.4 F 72-83 16-20 131-145/75-81 95-99 Result/EKG - Labs CBC & BMP: 03/19/17 04:25 03/20/17 04:06 Labs: Laboratory Results - last 24 hr 03/19/17 03/19/17 03/20/17 20:49 23:52 04:06 Sodium 157 H Potassium 4.7 Chloride 124 H Carbon Dioxide 24 Anion Gap 13.7 BUN 94 H Creatinine 4.30 H GFR Calculation 16 BUN/Creatinine Ratio 21.00 H Glucose 91 POC Glucose 227 H 177 H Calculated Osmolality 339.0 H Calcium 8.1 L 03/20/17 03/20/17 03/20/17 06:17 11:53 18:01 Sodium Potassium Chloride Carbon Dioxide Anion Gap BUN Creatinine GFR Calculation BUN/Creatinine Ratio Glucose POC Glucose 110 H 217 H 158 H Calculated Osmolality Calcium
[2017-03-21] MEDS: ALBUTEROL/IPRATROPIUM 3 ML NEB RESP TX SCH ×6 (00:18→20:26)
[2017-03-21] MEDS: INSULIN REGULAR 100 UNIT/ML SUBCUT SCH ×4 (00:56→17:11)
[2017-03-21] MEDS: SODIUM CHLORIDE 0.45% 1,000 ML IV SCH ×3 (08:43→09:24)
[2017-03-21] MEDS: PIPERACILLIN/TAZOBACTAM 3,375 MG in SODIUM CHLORIDE 0.9% 100 ML IV SCH ×2 (09:17→22:30)
[2017-03-21] MEDS: CYANOCOBALAMIN 500 MCG TABLET PO SCH (09:19)
[2017-03-21] MEDS: LANSOPRAZOLE ODT 30 MG TABLET PER TUBE SCH (09:19)
[2017-03-21] MEDS: FOLIC ACID 1 MG TABLET PO SCH (09:19)
[2017-03-21] MEDS: INSULIN NPH 100 UNIT/ML SUBCUT SCH ×2 (09:19→22:31)
[2017-03-21] MEDS: CARVEDILOL 6.25 MG TABLET PO SCH ×2 (09:20→22:31)
[2017-03-21] MEDS: ASPIRIN CHEW 81 MG TABLET PO SCH (09:20)
[2017-03-21] MEDS: DESITIN 4OZ/NYSTATIN 15 GRAM MIXTURE PASTE TOP SCH ×2 (09:20→22:31)
--- NOTE | 2017-03-21 09:59 | Hospitalist Progress Note ---
Assessment and Plan - Time spent with patient Time spent with patient: Greater than 30 minutes (1) Congestive heart failure Status: Acute Current Visit: Yes Qualifiers: Congestive heart failure type: unspecified congestive heart failure type Congestive heart failure chronicity: acute on chronic Qualified Code(s): I50.9 - Heart failure, unspecified (2) Uncontrolled diabetes mellitus Status: Acute Current Visit: No (3) Lower extremity edema Status: Acute Current Visit: Yes Qualifiers: Laterality: bilateral Qualified Code(s): R60.0 - Localized edema (4) Hypertension Status: Chronic Current Visit: Yes (5) Chronic kidney disease, stage IV (severe) Status: Chronic Current Visit: Yes (6) Respiratory failure Status: Resolved Assessment and plan: Continue diuresis and fluid management per nephrology and monitor renal function. Increase NPH insulin to 18 units BID and monitor FSG. Continue PT / OT To have a repeat swallow evaluation and hopefully next week and wean off feeding tube if he passes DVT prophylaxis Current Visit: Yes Qualifiers: Chronicity: acute (7) Nephrotic syndrome Status: Acute Current Visit: Yes (8) Hypernatremia Status: Acute Current Visit: Yes Hospitalist: Subjective Interval history: Asthma change reported overnight. Awake, responsive per nurses though he was sleeping at the time of my rounds. No fever. Still on tube feeding as I understand he feels the last swallowing evaluation a few days ago. This plan for repeat swallowing evaluation next week. Fluid rate to reduce by nephrology for lower extremity edema. Exam - Constitutional Vitals: Period Temp Pulse Resp BP Sys/Post Pulse Ox Last 24 Hr 97.7 F-98.8 F 67-80 14-20 125-148/71-85 94-98 Exam: General appearance: normal weight - Head Head exam: Present: normocephalic, atraumatic - Eye Eye exam: Present: EOMI Pupils: Present: ASHLY - ENT ENT exam: NGT in place on tube feeding going - Neck Neck exam: Present: normal inspection - Respiratory Respiratory exam: Present: clear to auscultation bilaterally. Absent: rhonchi, wheezes - Cardiovascular Cardiovascular exam: Present: regular rate and rhythm - GI/Abdominal GI/Abdominal exam: Present: normal bowel sounds, soft. Absent: tenderness, rebound - Extremities Exam Extremities exam: Present: normal inspection - Back Exam Back exam: Present: normal inspection - Neurological Exam Neurological exam: Present: alert, oriented X3 - Psychiatric Psychiatric exam: Present: normal affect, normal mood - Skin Skin exam: Present: warm, intact Results - Labs CBC & BMP: 03/19/17 04:25 03/20/17 04:06 Lab Results: I have reviewed the past 24 hour labs
--- NOTE | 2017-03-21 13:19 | Nephrology Progress Note ---
Nephrology - PN: Subj Interval history: Patient is resting comfortably no acute changes. No shortness of breath. BMP in a.m. Exam (PN)-Nephrology - Vital Signs Vital signs: Period Temp Pulse Resp BP Sys/Post Pulse Ox Last 24 Hr 97.7 F-98.8 F 67-79 14-20 125-148/71-85 94-99 - General Appearance General appearance: well-developed, well-nourished EENT: ATNC Neck: supple Respiratory: clear Cardiology: no edema, regular rate, regular rhythm Gastrointestinal: normoactive bowel sounds, no tenderness Neurologic: alert and oriented x3, CN 3-12 intact Musculoskeletal: no clubbing Psychiatric: mood/affect appropriate - Lab 03/19/17 04:25 03/20/17 04:06 Most recent lab results ABG pH 7.348 (7.35-7.45) L 03/16/17 08:16 ABG pCO2 40.1 MM HG (35-48) 03/16/17 08:16 ABG pO2 92.6 MM HG (80-95) 03/16/17 08:16 ABG HCO3 21.5 MMOL/L (20-26) 03/16/17 08:16 ABG O2 Saturation 96.3 % (95-100) 03/16/17 08:16 Calcium 8.1 MG/DL (8.5-10.1) L 03/20/17 04:06 Phosphorus 4.9 MG/DL (2.5-4.9) 03/19/17 04:25 Magnesium 4.2 MG/DL (1.8-2.4) H 03/19/17 04:25 Assessment and Plan (1) Congestive heart failure Status: Acute Current Visit: Yes Qualifiers: Congestive heart failure type: unspecified congestive heart failure type Congestive heart failure chronicity: acute on chronic Qualified Code(s): I50.9 - Heart failure, unspecified (2) Diabetes Status: Chronic Current Visit: Yes Qualifiers: Diabetes mellitus type: type 1 Diabetes mellitus complication status: with kidney complications Diabetes mellitus complication detail: with chronic kidney disease Chronic kidney disease stage: stage 4 (severe) Qualified Code (s): E10.22 - Type 1 diabetes mellitus with diabetic chronic kidney disease; N18.4 - Chronic kidney disease, stage 4 (severe) (3) Hypertension Status: Chronic Current Visit: Yes (4) Elevated brain natriuretic peptide (BNP) level Status: Acute Current Visit: No (5) Cardiomyopathy Status: Chronic Current Visit: Yes (6) Chronic kidney disease, stage IV (severe) Status: Chronic Current Visit: Yes (7) Respiratory failure Status: Resolved Assessment and plan: This issue has resolved. Current Visit: Yes Qualifiers: Chronicity: acute (8) Hypoglycemia Status: Resolved Assessment and plan: Will do mild sliding scale noted. Current Visit: Yes
--- NOTE | 2017-03-21 13:52 | Cardiology Progress Note ---
Assessment and Plan (1) Congestive heart failure Status: Acute Assessment and plan: CHF is certainly multifactorial but certainly related to his LV dysfunction. He does clinically stable at this time. Current Visit: Yes Qualifiers: Congestive heart failure type: unspecified congestive heart failure type Congestive heart failure chronicity: acute on chronic Qualified Code(s): I50.9 - Heart failure, unspecified (2) Cardiomyopathy Status: Chronic Assessment and plan: Per echocardiogram this admission, LV ejection fraction of 20% with severe global hypokinesis. Due to severe renal dysfunction, cannot add ANKITA inhibitor or ARB. Most likely will need an AICD/biventricular pacemaker in the future. Current Visit: Yes (3) Hypertension Status: Chronic Assessment and plan: This remains overall fairly well controlled. Continue current medication regimen. Current Visit: Yes (4) Bilateral pneumonia Status: Acute Assessment and plan: Per clinical findings, this is improved. Primary medicine has signed off the case. Current Visit: Yes (5) Chronic kidney disease, stage IV (severe) Status: Chronic Assessment and plan: Current creatinine of 4.5 and GFR 16. Nephrology is also following. His BUN is decreased some even with negative fluid status. Patient is not requiring hemodialysis at this time. Current Visit: Yes (6) Diabetes Status: Chronic Assessment and plan: Continue current plan of care. Defer primary management to hospital medicine. Current Visit: Yes Qualifiers: Diabetes mellitus type: type 1 Diabetes mellitus complication status: with kidney complications Diabetes mellitus complication detail: with chronic kidney disease Chronic kidney disease stage: stage 4 (severe) Qualified Code (s): E10.22 - Type 1 diabetes mellitus with diabetic chronic kidney disease; N18.4 - Chronic kidney disease, stage 4 (severe) (7) Dyslipidemia Status: Chronic Assessment and plan: Resume statin when able to. Noted he is receiving tube feedings at this time and is not taking by mouth medications. Noted that today and yesterday patient failed swallowing study 2 with overt s/s of aspiration. Current Visit: Yes Cardiology - PN: Subj Interval history: Mr. Mantilla is awake and alert and stable. Cardiac-vanegas is don't well with his rhythm being sinus. He's had no dysrhythmias. From his cardiomyopathy is done well. He's had no overt symptoms of heart failure. Nephrology and hospitalist for following of his other medical issues. Exam (Progress Note) - Constitutional Vitals: Period Temp Pulse Resp BP Sys/Post Pulse Ox Last 24 Hr 97.7 F-98.8 F 67-79 14-20 125-148/71-85 94-99 Exam: General appearance: no acute distress, over weight, appears fatigued today. Actually talking on the phone my arrival. - Head Head exam: Present: normal inspection. Absent: contusion, hematoma, laceration - Eye Eye exam: Absent: periorbital swelling, laceration to eyelids Pupils: Present: ASHLY. Absent: dilated, irregular - ENT ENT exam: Present: normal external ear exam - Neck Neck exam: Present: normal inspection. Absent: tenderness - Respiratory Respiratory exam: Present: other (coarse breath sounds but overall clear to auscultation). Absent: rhonchi, stridor, wheezes - Cardiovascular Cardiovascular exam: Present: regular rate and rhythm. Absent: bradycardia, diastolic murmur, irregular rhythm, JVD, systolic murmur, tachycardia - GI/Abdominal GI/Abdominal exam: Present: normal bowel sounds, soft. Absent: distended, firm , tenderness - Extremities Exam Extremities exam: Present: normal capillary refill, edema (pretibial, 1+) - Back Exam Back exam: Present: normal inspection - Neurological Exam Neurological exam: Present: alert, oriented X3 - Psychiatric Psychiatric exam: Present: Flat effect, normal mood. He appears to be withdrawn. Absent: agitated, anxious - Skin Skin exam: Present: warm, dry. Absent: cyanosis, diaphoretic extent make eye contact Result/EKG - Labs CBC & BMP: 03/19/17 04:25 03/20/17 04:06 Labs: Laboratory Results - last 24 hr 03/20/17 03/21/17 03/21/17 18:01 00:50 06:09 POC Glucose 158 H 208 H 194 H 03/21/17 11:38 POC Glucose 199 H - Impressions Impressions: Telemetry normal sinus rhythm without dysrhythmias noted.
[2017-03-22] MEDS: ALBUTEROL/IPRATROPIUM 3 ML NEB RESP TX SCH ×6 (00:21→20:58)
[2017-03-22] MEDS: INSULIN REGULAR 100 UNIT/ML SUBCUT SCH ×4 (00:30→17:01)
[2017-03-22 06:38] LABS: Calcium 7.8 MG/DL (8.5-10.1); Osmolality,Calculated 343.7 MOS/KG (273-304); Potassium 4.5 MMOL/L (3.5-5.1)
--- NOTE | 2017-03-22 09:09 | Nephrology Progress Note ---
Nephrology - PN: Subj Interval history: The patient is resting no acute changes. Serum creatinine noted to be 4.1. Urine output has been stable. Exam (PN)-Nephrology - Vital Signs Vital signs: Period Temp Pulse Resp BP Sys/Post Pulse Ox Last 24 Hr 97.9 F-98.5 F 68-81 16-20 131-148/72-80 92-100 - General Appearance General appearance: well-developed, well-nourished EENT: ATNC Neck: supple Respiratory: clear Cardiology: no edema, regular rate Gastrointestinal: normoactive bowel sounds, no tenderness - Lab 03/19/17 04:25 03/22/17 05:12 Most recent lab results ABG pH 7.348 (7.35-7.45) L 03/16/17 08:16 ABG pCO2 40.1 MM HG (35-48) 03/16/17 08:16 ABG pO2 92.6 MM HG (80-95) 03/16/17 08:16 ABG HCO3 21.5 MMOL/L (20-26) 03/16/17 08:16 ABG O2 Saturation 96.3 % (95-100) 03/16/17 08:16 Calcium 7.8 MG/DL (8.5-10.1) L 03/22/17 05:12 Phosphorus 4.9 MG/DL (2.5-4.9) 03/19/17 04:25 Magnesium 4.2 MG/DL (1.8-2.4) H 03/19/17 04:25 Assessment and Plan (1) Congestive heart failure Status: Acute Current Visit: Yes Qualifiers: Congestive heart failure type: unspecified congestive heart failure type Congestive heart failure chronicity: acute on chronic Qualified Code(s): I50.9 - Heart failure, unspecified (2) Diabetes Status: Chronic Current Visit: Yes Qualifiers: Diabetes mellitus type: type 1 Diabetes mellitus complication status: with kidney complications Diabetes mellitus complication detail: with chronic kidney disease Chronic kidney disease stage: stage 4 (severe) Qualified Code (s): E10.22 - Type 1 diabetes mellitus with diabetic chronic kidney disease; N18.4 - Chronic kidney disease, stage 4 (severe) (3) Hypertension Status: Chronic Current Visit: Yes (4) Elevated brain natriuretic peptide (BNP) level Status: Acute Assessment and plan: Component of congestive heart failure. Current Visit: No (5) Cardiomyopathy Status: Chronic Current Visit: Yes (6) Chronic kidney disease, stage IV (severe) Status: Chronic Current Visit: Yes (7) Respiratory failure Status: Resolved Assessment and plan: This issue has resolved. Current Visit: Yes Qualifiers: Chronicity: acute (8) Hypoglycemia Status: Resolved Current Visit: Yes
[2017-03-22] MEDS: INSULIN NPH 100 UNIT/ML SUBCUT SCH ×2 (09:17→21:39)
[2017-03-22] MEDS: PIPERACILLIN/TAZOBACTAM 3,375 MG in SODIUM CHLORIDE 0.9% 100 ML IV SCH (09:17)
[2017-03-22] MEDS: DESITIN 4OZ/NYSTATIN 15 GRAM MIXTURE PASTE TOP SCH ×2 (09:18→21:39)
[2017-03-22] MEDS: CARVEDILOL 6.25 MG TABLET PO SCH ×2 (09:18→21:39)
[2017-03-22] MEDS: CYANOCOBALAMIN 500 MCG TABLET PO SCH (09:18)
[2017-03-22] MEDS: FOLIC ACID 1 MG TABLET PO SCH (09:19)
[2017-03-22] MEDS: ASPIRIN CHEW 81 MG TABLET PO SCH (09:19)
[2017-03-22] MEDS: LANSOPRAZOLE ODT 30 MG TABLET PER TUBE SCH (09:19)
--- NOTE | 2017-03-22 11:01 | Hospitalist Progress Note ---
Assessment and Plan - Time spent with patient Time spent with patient: Greater than 30 minutes (1) Congestive heart failure Status: Acute Current Visit: Yes Qualifiers: Congestive heart failure type: unspecified congestive heart failure type Congestive heart failure chronicity: acute on chronic Qualified Code(s): I50.9 - Heart failure, unspecified (2) Uncontrolled diabetes mellitus Status: Acute Current Visit: No (3) Lower extremity edema Status: Acute Current Visit: Yes Qualifiers: Laterality: bilateral Qualified Code(s): R60.0 - Localized edema (4) Hypertension Status: Chronic Current Visit: Yes (5) Chronic kidney disease, stage IV (severe) Status: Chronic Current Visit: Yes (6) Respiratory failure Status: Resolved Assessment and plan: The uterus was and fluid management per nephrology and monitor renal function. Keep rectal tube for now until stool becomes more formed. In the meantime send stool for C. difficile since he has been on prolonged antibiotics. Continue NPH insulin at 18 units BID and monitor FSG. Continue PT / OT To have a repeat swallow evaluation and hopefully next week and wean off feeding tube if he passes DVT prophylaxis Current Visit: Yes Qualifiers: Chronicity: acute (7) Nephrotic syndrome Status: Acute Current Visit: Yes (8) Hypernatremia Status: Acute Current Visit: Yes Hospitalist: Subjective Interval history: Not much change since last seen yesterday. Still on tube feeding, planned for repeat swallow evaluation during the week. Still on rectal tube with continued liquid stool/diarrhea. Since he has been on prolonged antibiotics, we will need to check for C. difficile's because of his diarrhea. Blood sugars are in acceptable range. Serum creatinine of 4.1 today. Exam - Constitutional Vitals: Period Temp Pulse Resp BP Sys/Post Pulse Ox Last 24 Hr 97.9 F-98.5 F 68-81 16-20 131-148/72-80 92-100 Exam: General appearance: normal weight - Head Head exam: Present: normocephalic, atraumatic - Eye Eye exam: Present: EOMI Pupils: Present: ASHLY - ENT ENT exam: NGT in place on tube feeding going - Neck Neck exam: Present: normal inspection - Respiratory Respiratory exam: Present: clear to auscultation bilaterally. Absent: rhonchi, wheezes - Cardiovascular Cardiovascular exam: Present: regular rate and rhythm - GI/Abdominal GI/Abdominal exam: Present: normal bowel sounds, soft. Absent: tenderness, rebound - Extremities Exam Extremities exam: Present: normal inspection - Back Exam Back exam: Present: normal inspection - Neurological Exam Neurological exam: Present: alert, oriented X3 - Psychiatric Psychiatric exam: Present: normal affect, normal mood - Skin Skin exam: Present: warm, intact Results - Labs CBC & BMP: 03/19/17 04:25 03/22/17 05:12 Lab Results: I have reviewed the past 24 hour labs
--- NOTE | 2017-03-22 14:50 | Cardiology Progress Note ---
Assessment and Plan (1) Congestive heart failure Status: Acute Assessment and plan: CHF is certainly multifactorial but certainly related to his LV dysfunction. He is clinically stable. Current Visit: Yes Qualifiers: Congestive heart failure type: unspecified congestive heart failure type Congestive heart failure chronicity: acute on chronic Qualified Code(s): I50.9 - Heart failure, unspecified (2) Cardiomyopathy Status: Chronic Assessment and plan: Per echocardiogram this admission, LV ejection fraction of 20% with severe global hypokinesis. Due to severe renal dysfunction, cannot add ANKITA inhibitor or ARB. Most likely will need an AICD/biventricular pacemaker in the future. Current Visit: Yes (3) Hypertension Status: Chronic Assessment and plan: This remains overall fairly well controlled. Continue current medication regimen. Current Visit: Yes (4) Bilateral pneumonia Status: Acute Assessment and plan: Per clinical findings, this is improved. Primary medicine has signed off the case. Current Visit: Yes (5) Chronic kidney disease, stage IV (severe) Status: Chronic Assessment and plan: Current creatinine of 4.1 is better. Nephrology is also following. His BUN is decreased some even with negative fluid status. Patient is not requiring hemodialysis at this time. Current Visit: Yes (6) Diabetes Status: Chronic Assessment and plan: Continue current plan of care. Defer primary management to hospital medicine. Current Visit: Yes Qualifiers: Diabetes mellitus type: type 1 Diabetes mellitus complication status: with kidney complications Diabetes mellitus complication detail: with chronic kidney disease Chronic kidney disease stage: stage 4 (severe) Qualified Code (s): E10.22 - Type 1 diabetes mellitus with diabetic chronic kidney disease; N18.4 - Chronic kidney disease, stage 4 (severe) (7) Dyslipidemia Status: Chronic Assessment and plan: Resume statin when able to. Current Visit: Yes (8) Debilitated Status: Acute Assessment and plan: Question if the patient will be a candidate for LTAC or rehabilitation center. Current Visit: Yes Cardiology - PN: Subj Interval history: Patient has no complaints today. He is a little more awake today. He is continuing his tube feedings. He still having very loose diarrhea stools with a rectal tube. Patient rhythm remains sinus. His creatinine is stable has not decreased. Overall his cardiac status is stable with his cardiomyopathy. He has no overt heart failure findings. Exam (Progress Note) - Constitutional Vitals: Period Temp Pulse Resp BP Sys/Post Pulse Ox Last 24 Hr 97.9 F-98.5 F 68-81 16-20 131-148/72-96 92-100 Exam: General appearance: no acute distress, over weight. - Head Head exam: Present: normal inspection. Absent: contusion, hematoma, laceration - Neck Neck exam: Present: normal inspection. Trachea midline. - Respiratory Respiratory exam: Present: Anteriorly slightly coarse breath sounds. Absent: rhonchi, stridor, wheezes - Cardiovascular Cardiovascular exam: Present: regular rate and rhythm. Absent: bradycardia, diastolic murmur, irregular rhythm, JVD, systolic murmur, tachycardia - GI/Abdominal GI/Abdominal exam: Present: normal bowel sounds, soft. Absent: distended, firm , tenderness - Extremities Exam Extremities exam: Present: normal capillary refill, edema (pretibial, 1+) - Back Exam Back exam: Present: normal inspection - Neurological Exam Neurological exam: Present: alert, oriented X3 - Psychiatric Psychiatric exam: Present: Flat effect, normal mood. He appears to be withdrawn. Absent: agitated, anxious - Skin Skin exam: Present: warm, dry. Absent: cyanosis, diaphoretic extent make eye contact Result/EKG - Labs CBC & BMP: 03/19/17 04:25 03/22/17 05:12 Lab Results: I have reviewed the past 24 hour labs Labs: Laboratory Results - last 24 hr 03/21/17 03/22/17 03/22/17 17:05 00:22 05:12 Sodium 159 H Potassium 4.5 Chloride 126 H Carbon Dioxide 25 Anion Gap 12.5 BUN 86 H Creatinine 4.10 H GFR Calculation 17 BUN/Creatinine Ratio 20.00 Glucose 164 H POC Glucose 146 H 179 H Calculated Osmolality 343.7 H Calcium 7.8 L 03/22/17 03/22/17 05:53 11:53 Sodium Potassium Chloride Carbon Dioxide Anion Gap BUN Creatinine GFR Calculation BUN/Creatinine Ratio Glucose POC Glucose 165 H 139 H Calculated Osmolality Calcium - Impressions Impressions: Telemetry normal sinus rhythm.
[2017-03-23] MEDS: INSULIN REGULAR 100 UNIT/ML SUBCUT SCH ×5 (00:03→23:55)
[2017-03-23] MEDS: ALBUTEROL/IPRATROPIUM 3 ML NEB RESP TX SCH ×7 (00:05→23:12)
[2017-03-23 05:55] LABS: Magnesium 3.5 MG/DL (1.8-2.4); Osmolality,Calculated 343.7 MOS/KG (273-304); Phosphorous 4.2 MG/DL (2.5-4.9); Potassium 4.5 MMOL/L (3.5-5.1); Prealbumin 13.5 MG/DL (20-40)
[2017-03-23] MEDS: SODIUM CHLORIDE 0.45% 1,000 ML IV SCH ×3 (07:23→12:24)
[2017-03-23] MEDS: CARVEDILOL 6.25 MG TABLET PO SCH ×2 (08:46→20:17)
[2017-03-23] MEDS: ASPIRIN CHEW 81 MG TABLET PO SCH (08:46)
[2017-03-23] MEDS: FOLIC ACID 1 MG TABLET PO SCH (08:46)
[2017-03-23] MEDS: INSULIN NPH 100 UNIT/ML SUBCUT SCH ×2 (08:46→20:18)
[2017-03-23] MEDS: LANSOPRAZOLE ODT 30 MG TABLET PER TUBE SCH (08:46)
[2017-03-23] MEDS: CYANOCOBALAMIN 500 MCG TABLET PO SCH (08:46)
[2017-03-23] MEDS: DESITIN 4OZ/NYSTATIN 15 GRAM MIXTURE PASTE TOP SCH ×2 (09:12→20:18)
--- NOTE | 2017-03-23 11:18 | Nephrology Progress Note ---
Nephrology - PN: Subj Interval history: He is lethargic but arousable. He denies shortness of breath. Exam (PN)-Nephrology - Vital Signs Vital signs: Period Temp Pulse Resp BP Sys/Post Pulse Ox Last 24 Hr 97.0 F-98.2 F 61-82 14-20 132-167/79-98 87-99 Exam: ENT: Normal Cardiovascular: Regular rate and rhythm. No murmur rub or gallop Lungs: Clear Extremities: No edema - Lab 03/19/17 04:25 03/23/17 04:29 Most recent lab results ABG pH 7.348 (7.35-7.45) L 03/16/17 08:16 ABG pCO2 40.1 MM HG (35-48) 03/16/17 08:16 ABG pO2 92.6 MM HG (80-95) 03/16/17 08:16 ABG HCO3 21.5 MMOL/L (20-26) 03/16/17 08:16 ABG O2 Saturation 96.3 % (95-100) 03/16/17 08:16 Calcium 8.0 MG/DL (8.5-10.1) L 03/23/17 04:29 Phosphorus 4.2 MG/DL (2.5-4.9) 03/23/17 04:29 Magnesium 3.5 MG/DL (1.8-2.4) H 03/23/17 04:29 Assessment and Plan (1) Acute hypoxemic respiratory failure Status: Resolved Assessment and plan: 61-year-old man admitted with: * Bilateral pneumonia. 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 Baseline creatinine between 3 and 4. * Acute on chronic renal failure. Creatinine is slowly improving. Fluid balance remains negative * Hypernatremia. Increase free water * Nephrotic syndrome * Diabetes mellitus * Cardiomyopathy * Hypertension Current Visit: Yes (2) Bilateral pneumonia Status: Acute Current Visit: Yes (3) Cardiomyopathy Status: Chronic Current Visit: Yes (4) Chronic kidney disease, stage IV (severe) Status: Chronic Current Visit: Yes (5) Diabetes Status: Chronic Current Visit: Yes Qualifiers: Diabetes mellitus type: type 1 Diabetes mellitus complication status: with kidney complications Diabetes mellitus complication detail: with chronic kidney disease Chronic kidney disease stage: stage 4 (severe) Qualified Code (s): E10.22 - Type 1 diabetes mellitus with diabetic chronic kidney disease; N18.4 - Chronic kidney disease, stage 4 (severe) (6) Hypertension Status: Chronic Current Visit: Yes
--- NOTE | 2017-03-23 15:54 | Cardiology Progress Note ---
<MillerChristianCelena E - Last Filed: 03/23/17 15:52> Assessment and Plan - Time spent with patient Time spent with patient: Less than 30 minutes (1) Congestive heart failure Status: Acute Assessment and plan: CHF is certainly multifactorial and related to his LV dysfunction. At this time , he is clinically stable. Current Visit: Yes Qualifiers: Congestive heart failure type: unspecified congestive heart failure type Congestive heart failure chronicity: acute on chronic Qualified Code(s): I50.9 - Heart failure, unspecified (2) Cardiomyopathy Status: Chronic Assessment and plan: Per echocardiogram this admission, LV ejection fraction of 20% with severe global hypokinesis. Due to severe renal dysfunction, cannot add ANKITA inhibitor or ARB. Most likely will need an AICD/biventricular pacemaker in the future. Current Visit: Yes (3) Bilateral pneumonia Status: Acute Assessment and plan: Per clinical findings, this is improved. Primary medicine has signed off the case. Current Visit: Yes (4) Chronic kidney disease, stage IV (severe) Status: Chronic Assessment and plan: Current creatinine of 3.8. Nephrology is also following. His BUN is decreased some even with negative fluid status. Patient is not requiring hemodialysis at this time. Current Visit: Yes (5) Diabetes Status: Chronic Assessment and plan: Continue current plan of care. Defer primary management to hospital medicine. Current Visit: Yes Qualifiers: Diabetes mellitus type: type 1 Diabetes mellitus complication status: with kidney complications Diabetes mellitus complication detail: with chronic kidney disease Chronic kidney disease stage: stage 4 (severe) Qualified Code (s): E10.22 - Type 1 diabetes mellitus with diabetic chronic kidney disease; N18.4 - Chronic kidney disease, stage 4 (severe) (6) Dyslipidemia Status: Chronic Assessment and plan: Resume statin when able to. Noted he is receiving tube feedings at this time and is not taking by mouth medications. Noted that patient has failed swallowing study 2 with overt s/s of aspiration. Current Visit: Yes (7) Hypertension Status: Chronic Assessment and plan: Currently well controlled. We will continue to monitor and make adjustments as needed. Current Visit: Yes Cardiology - PN: Subj Interval history: Mr. Mantilla is more alert today. He is continuing to require tube feedings and continues to have loose stools with rectal tube. He remains in sinus rhythm with rates in the 70's. Creatinine remains stable, has decreased slightly to 3.8. He currently has no overt heart failure findings and his cardiomyopathy is stable. Exam (Progress Note) - Constitutional Vitals: Period Temp Pulse Resp BP Sys/Post Pulse Ox Last 24 Hr 97.0 F-98.2 F 61-79 14-20 143-167/77-98 87-99 Exam: General appearance: no acute distress, over weight, pleasant, appears comfortable. - Head Head exam: Present: normal inspection. Absent: contusion, hematoma, laceration - Eye Eye exam: Absent: periorbital swelling, laceration to eyelids Pupils: Present: ASHLY. Absent: dilated, irregular - ENT ENT exam: Present: normal external ear exam - Neck Neck exam: Present: normal inspection, trachea midline. Absent: tenderness - Respiratory Respiratory exam: Present: Slightly coarse breath sounds anteriorly. Absent: rhonchi, stridor, wheezes - Cardiovascular Cardiovascular exam: Present: regular rate and rhythm. Absent: bradycardia, diastolic murmur, irregular rhythm, JVD, systolic murmur, tachycardia - GI/Abdominal GI/Abdominal exam: Present: normal bowel sounds, soft. Absent: distended, firm , tenderness - Extremities Exam Extremities exam: Present: normal capillary refill, edema (pretibial, 1+) - Back Exam Back exam: Present: normal inspection - Neurological Exam Neurological exam: Present: alert, oriented X3 - Psychiatric Psychiatric exam: Present: Flat effect, normal mood. He appears to be withdrawn. Absent: agitated, anxious - Skin Skin exam: Present: warm, dry. Absent: cyanosis, diaphoretic extent make eye contact Result/EKG - Labs CBC & BMP: 03/19/17 04:25 03/23/17 04:29 Lab Results: I have reviewed the past 24 hour labs Labs: Laboratory Results - last 24 hr 03/22/17 03/22/17 03/22/17 07:43 15:51 23:57 Sodium Potassium Chloride Carbon Dioxide Anion Gap BUN Creatinine GFR Calculation BUN/Creatinine Ratio Glucose POC Glucose 156 H 87 186 H Calculated Osmolality Calcium Phosphorus Magnesium Prealbumin 03/23/17 03/23/17 03/23/17 04:29 06:01 11:22 Sodium 159 H Potassium 4.5 Chloride 127 H Carbon Dioxide 24 Anion Gap 12.5 BUN 80 H Creatinine 3.80 H GFR Calculation 19 BUN/Creatinine Ratio 21.00 H Glucose 203 H POC Glucose 204 H 153 H Calculated Osmolality 343.7 H Calcium 8.0 L Phosphorus 4.2 Magnesium 3.5 H Prealbumin 13.5 L - EKG EKG results: interpreted by me, sinus rhythm <Donita Minaya - Last Filed: 03/23/17 20:50> Cardiology - PN: Subj Interval history: I have personally interviewed and evaluated the patient, reviewed the chart and discussed medical decision-making with practitioner Paul. I have read this note and agree with her documentation here in. Exam (Progress Note) - Constitutional Vitals: Period Temp Pulse Resp BP Sys/Post Pulse Ox Last 24 Hr 97.0 F-97.9 F 71-79 14-20 143-167/77-87 88-100 Result/EKG - Labs CBC & BMP: 03/19/17 04:25 03/23/17 04:29 Labs: Laboratory Results - last 24 hr 03/22/17 03/23/17 03/23/17 23:57 04:29 06:01 Sodium 159 H Potassium 4.5 Chloride 127 H Carbon Dioxide 24 Anion Gap 12.5 BUN 80 H Creatinine 3.80 H GFR Calculation 19 BUN/Creatinine Ratio 21.00 H Glucose 203 H POC Glucose 186 H 204 H Calculated Osmolality 343.7 H Calcium 8.0 L Phosphorus 4.2 Magnesium 3.5 H Prealbumin 13.5 L 03/23/17 03/23/17 03/23/17 11:22 18:01 19:12 Sodium Potassium Chloride Carbon Dioxide Anion Gap BUN Creatinine GFR Calculation BUN/Creatinine Ratio Glucose POC Glucose 153 H 145 H 146 H Calculated Osmolality Calcium Phosphorus Magnesium Prealbumin
--- NOTE | 2017-03-23 19:04 | Hospitalist Progress Note ---
Assessment and Plan (1) Diabetes Status: Chronic Current Visit: Yes Qualifiers: Diabetes mellitus type: type 1 Diabetes mellitus complication status: with kidney complications Diabetes mellitus complication detail: with chronic kidney disease Chronic kidney disease stage: stage 4 (severe) Qualified Code (s): E10.22 - Type 1 diabetes mellitus with diabetic chronic kidney disease; N18.4 - Chronic kidney disease, stage 4 (severe) (2) Cellulitis Status: Acute Current Visit: No (3) Chronic kidney disease, stage IV (severe) Status: Chronic Current Visit: Yes (4) Bilateral pneumonia Status: Acute Assessment and plan: Respiratory status has improved. Currently not on any antibiotics. S/P extubation but now with difficulty swallowing- showing signs of overt aspiration. Still with NGT feedings for now. Adjustments made to rate in an attempt to correct hypernatremia. Will hold 1/2NS to see if this corrects and increase enteral flushes to 50ml q hour. Appreciate nutrition input. Will need to ensure that PT is following as this will play into disposition to STR. Current Visit: Yes (5) Systolic CHF, acute on chronic Status: Acute Current Visit: Yes (6) Hypernatremia Status: Acute Current Visit: Yes (7) Debilitated Status: Acute Current Visit: Yes Hospitalist: Subjective Interval history: Patient seen and evaluated. Still on NG tube feedings. Repeat bedside swallow eval not attempted today. Previously, eval has shown signs of aspiration. Will need to determine a route of nutrition for discharge planning. Additionally, plans are for LTAC vs STR. Will need an eval by PT prior to arranging this. He seems to have limited insight into his medical problems. Exam - Constitutional Vitals: Period Temp Pulse Resp BP Sys/Post Pulse Ox Last 24 Hr 97.0 F-98.2 F 71-79 14-20 143-167/77-98 88-100 General appearance: no acute distress - Head Head exam: Present: normal inspection, normocephalic, atraumatic - Eye Eye exam: Present: EOMI - Neck Neck exam: Present: normal inspection, lymphadenopathy - Respiratory Respiratory exam: Present: clear to auscultation bilaterally - Cardiovascular Cardiovascular exam: Present: regular rate and rhythm - GI/Abdominal GI/Abdominal exam: Present: normal bowel sounds, soft. Absent: distended, tenderness - Neurological Exam Neurological exam: Present: alert - Skin Skin exam: Present: normal color, warm, dry Results - Labs CBC & BMP: 03/19/17 04:25 03/23/17 04:29
[2017-03-23] MEDS: LACTOBACILLUS RHAMNOSUS GG CAPSULE PO SCH (20:17)
[2017-03-24] MEDS: ALBUTEROL/IPRATROPIUM 3 ML NEB RESP TX SCH ×6 (02:46→23:56)
[2017-03-24] MEDS: INSULIN REGULAR 100 UNIT/ML SUBCUT SCH ×4 (05:01→23:53)
[2017-03-24] MEDS: CYANOCOBALAMIN 500 MCG TABLET PO SCH (08:35)
[2017-03-24] MEDS: FOLIC ACID 1 MG TABLET PO SCH (08:35)
[2017-03-24] MEDS: LACTOBACILLUS RHAMNOSUS GG CAPSULE PO SCH ×2 (08:35→20:28)
[2017-03-24] MEDS: ASPIRIN CHEW 81 MG TABLET PO SCH (08:35)
[2017-03-24] MEDS: LANSOPRAZOLE ODT 30 MG TABLET PER TUBE SCH (08:35)
[2017-03-24] MEDS: CARVEDILOL 6.25 MG TABLET PO SCH (08:35)
[2017-03-24] MEDS: INSULIN NPH 100 UNIT/ML SUBCUT SCH ×2 (08:35→20:28)
[2017-03-24] MEDS: DESITIN 4OZ/NYSTATIN 15 GRAM MIXTURE PASTE TOP SCH ×2 (08:36→20:29)
--- NOTE | 2017-03-24 11:10 | Nephrology Progress Note ---
Nephrology - PN: Subj Interval history: He is easily arousable today. He denies shortness of breath Exam (PN)-Nephrology - Vital Signs Vital signs: Period Temp Pulse Resp BP Sys/Post Pulse Ox Last 24 Hr 97.1 F-98.4 F 69-79 16-20 129-156/63-82 96-100 Exam: ENT: Normal Cardiovascular: Regular rate and rhythm. No murmur rub or gallop Lungs: Clear Extremities: No edema - Lab 03/19/17 04:25 03/23/17 04:29 Most recent lab results ABG pH 7.348 (7.35-7.45) L 03/16/17 08:16 ABG pCO2 40.1 MM HG (35-48) 03/16/17 08:16 ABG pO2 92.6 MM HG (80-95) 03/16/17 08:16 ABG HCO3 21.5 MMOL/L (20-26) 03/16/17 08:16 ABG O2 Saturation 96.3 % (95-100) 03/16/17 08:16 Calcium 8.0 MG/DL (8.5-10.1) L 03/23/17 04:29 Phosphorus 4.2 MG/DL (2.5-4.9) 03/23/17 04:29 Magnesium 3.5 MG/DL (1.8-2.4) H 03/23/17 04:29 Assessment and Plan (1) Acute hypoxemic respiratory failure Status: Resolved Assessment and plan: 61-year-old man admitted with: * Bilateral pneumonia. 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 Baseline creatinine between 3 and 4. * Acute on chronic renal failure. Creatinine is slowly improving. Fluid balance remains negative * Hypernatremia. Increase free water. BMP pending * Nephrotic syndrome * Diabetes mellitus * Cardiomyopathy * Hypertension Current Visit: Yes (2) Bilateral pneumonia Status: Acute Current Visit: Yes (3) Cardiomyopathy Status: Chronic Current Visit: Yes (4) Chronic kidney disease, stage IV (severe) Status: Chronic Current Visit: Yes (5) Diabetes Status: Chronic Current Visit: Yes Qualifiers: Diabetes mellitus type: type 1 Diabetes mellitus complication status: with kidney complications Diabetes mellitus complication detail: with chronic kidney disease Chronic kidney disease stage: stage 4 (severe) Qualified Code (s): E10.22 - Type 1 diabetes mellitus with diabetic chronic kidney disease; N18.4 - Chronic kidney disease, stage 4 (severe) (6) Hypertension Status: Chronic Current Visit: Yes
--- NOTE | 2017-03-24 11:55 | Hospitalist Progress Note ---
Hospitalist: Subjective Interval history: Patient sitting up in bed. No fever. No chest pain or shortness of breath. No nausea or vomiting. Tolerating tube feeds. No bowel movement recorded in days. Exam - Constitutional Vitals: Period Temp Pulse Resp BP Sys/Post Pulse Ox Last 24 Hr 97.1 F-98.4 F 69-79 16-20 129-156/63-82 96-100 Exam: General : awake alert and oriented to person lying in hospital bed in no acute distress. Patient has mild dysarthria. HEENT: Slightly dry mucous membranes, NG tube in place. Cardiovascular : regular rate and rhythm. Normal S1-S2 no obvious murmurs rubs or gallops. Lungs: clear anteriorly, diminished at the bases, nonlabored breathing noted. EXT: Abdomen: Soft, nontender, nondistended, positive bowel sounds. NEURO: Moves all extremities equally. Sensory exam appears to be grossly intact. Gait was not assessed. Results - Labs CBC & BMP: 03/19/17 04:25 03/24/17 11:37 - Impressions (1) Dysphagia - S.T. following. NGT in place. Consult GI for PEG tube placement. Discuss with his niece Carmelita at [phone] who has consented. Patient is not and does not have a . She reports that he is and has no children. (2) Diabetes mellitus Status: Chronic Current Visit: Yes Qualifiers: Diabetes mellitus type: type 1 Diabetes mellitus complication status: with kidney complications Diabetes mellitus complication detail: with chronic kidney disease Chronic kidney disease stage: stage 4 (severe) Qualified Code (s): E10.22 - Type 1 diabetes mellitus with diabetic chronic kidney disease; N18.4 - Chronic kidney disease, stage 4 (severe) - Cont current therapy (3) Chronic kidney disease, stage IV (severe) Status: Chronic Current Visit: Yes - nephrology following (4) Bilateral pneumonia- resolved Status: Acute Assessment and plan: Respiratory status has improved. Currently not on any antibiotics. S/P extubation but now with difficulty swallowing- showing signs of overt aspiration. Still with NGT feedings for now. Adjustments made to rate in an attempt to correct hypernatremia. Will hold 1/2NS to see if this corrects and increase enteral flushes to 50ml q hour. Appreciate nutrition input. Will need to ensure that PT is following as this will play into disposition to STR. Current Visit: Yes (5) Systolic and diastolic CHF, chronic Status: Acute Current Visit: Yes - cont current therapy with Coreg. No ACEi or ARB due to elevated creatinine. Cards has plans for AICD due to poor EF. Cards following. (6) Hypernatremia Status: Acute Current Visit: Yes -On free water replacement via tube feed. Repeat labs in a.m. (7) Debilitated Status: Acute Current Visit: Yes - PT/OT (8) Acute hypoxic respiratory failure due to acute decompensated CHF and pneumonia - resolved Discussed with pt and his niece Carmelita by phone and updated. Discussed with nurse. All questions answered.
[2017-03-24 12:20] LABS: Calcium 7.5 MG/DL (8.5-10.1); Osmolality,Calculated 342.6 MOS/KG (273-304); Potassium 4.1 MMOL/L (3.5-5.1)
[2017-03-24] MEDS ORDERED: BISACODYL 10 MG SUPP RECTAL ONE (13:15)
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
--- NOTE | 2017-03-24 15:45 | Cardiology Progress Note ---
<Christian Millerjeremie Reese - Last Filed: 03/24/17 15:43> Assessment and Plan - Time spent with patient Time spent with patient: Less than 30 minutes (1) Congestive heart failure Status: Acute Assessment and plan: CHF is certainly multifactorial and related to his LV dysfunction. At this time , he is clinically stable. Current Visit: Yes Qualifiers: Congestive heart failure type: unspecified congestive heart failure type Congestive heart failure chronicity: acute on chronic Qualified Code(s): I50.9 - Heart failure, unspecified (2) Cardiomyopathy Status: Chronic Assessment and plan: Per echocardiogram this admission, LV ejection fraction of 20% with severe global hypokinesis. Due to severe renal dysfunction, cannot add ANKITA inhibitor or ARB. Most likely will need an AICD/biventricular pacemaker in the future. Current Visit: Yes (3) Bilateral pneumonia Status: Acute Assessment and plan: Per clinical findings, this is improved. Primary medicine has signed off the case. Current Visit: Yes (4) Chronic kidney disease, stage IV (severe) Status: Chronic Assessment and plan: Current creatinine of 3.6. Nephrology is also following. His BUN is decreased some even with negative fluid status. Patient is not requiring hemodialysis at this time. Current Visit: Yes (5) Diabetes Status: Chronic Assessment and plan: Continue current plan of care. Defer primary management to hospital medicine. Current Visit: Yes Qualifiers: Diabetes mellitus type: type 1 Diabetes mellitus complication status: with kidney complications Diabetes mellitus complication detail: with chronic kidney disease Chronic kidney disease stage: stage 4 (severe) Qualified Code (s): E10.22 - Type 1 diabetes mellitus with diabetic chronic kidney disease; N18.4 - Chronic kidney disease, stage 4 (severe) (6) Dyslipidemia Status: Chronic Assessment and plan: Resume statin when able to. Noted he is receiving tube feedings at this time and is not taking by mouth medications. Noted that patient has failed swallowing study 2 with overt s/s of aspiration. Patient is for PEG tube placement tomorrow. Current Visit: Yes (7) Hypertension Status: Chronic Assessment and plan: Blood pressure suboptimally controlled with SBP in 150's. HR's in 70's. Will increase Carvedilol to 12.5mg PO BID and see how patient tolerates. Current Visit: Yes Cardiology - PN: Subj Interval history: HOME MORTGAGE DISCLOSURE ACT SPECIALIST: DR. TINAJERO Mr. Mantilla is more alert today. He is continuing to require tube feedings and is for PEG tube placement tomorrow. His phelan and rectal tube have been discontinued. He is sitting up in the chair upon exam in no acute distress. He is alert and oriented to person and place. Creatinine has decreased to 3.6 today. His sodium has increased to 160. His IV fluids were discontinued yesterday. Today, his free water flushes have been increased to 50ml every hour. He currently has no overt heart failure findings and his cardiomyopathy is stable. Exam (Progress Note) - Constitutional Vitals: Period Temp Pulse Resp BP Sys/Post Pulse Ox Last 24 Hr 97.1 F-98.5 F 69-76 16-20 129-156/63-84 96-100 Exam: General appearance: no acute distress, over weight, pleasant, appears comfortable. - Head Head exam: Present: normal inspection. Absent: contusion, hematoma, laceration - Eye Eye exam: Absent: periorbital swelling, laceration to eyelids Pupils: Present: ASHLY. Absent: dilated, irregular - ENT ENT exam: Present: normal external ear exam - Neck Neck exam: Present: normal inspection, trachea midline. Absent: tenderness - Respiratory Respiratory exam: Present: Clear anteriorly, coarse posteriorly in bilateral bases. Absent: rhonchi, stridor, wheezes - Cardiovascular Cardiovascular exam: Present: regular rate and rhythm. Absent: bradycardia, diastolic murmur, irregular rhythm, JVD, systolic murmur, tachycardia - GI/Abdominal GI/Abdominal exam: Present: normal bowel sounds, soft. Absent: distended, firm , tenderness - Extremities Exam Extremities exam: Present: normal capillary refill, edema (pretibial, 1+) - Back Exam Back exam: Present: normal inspection - Neurological Exam Neurological exam: Present: alert, oriented X3 - Psychiatric Psychiatric exam: Present: Flat effect, normal mood. He appears to be withdrawn. Absent: agitated, anxious - Skin Skin exam: Present: warm, dry. Absent: cyanosis, diaphoretic extent make eye contact Result/EKG - Labs CBC & BMP: 03/19/17 04:25 03/24/17 11:37 Lab Results: I have reviewed the past 24 hour labs Labs: Laboratory Results - last 24 hr 03/23/17 03/23/17 03/23/17 18:01 19:12 23:47 Sodium Potassium Chloride Carbon Dioxide Anion Gap BUN Creatinine GFR Calculation BUN/Creatinine Ratio Glucose POC Glucose 145 H 146 H 176 H Calculated Osmolality Calcium 03/24/17 03/24/17 03/24/17 04:27 11:37 11:41 Sodium 160 H* Potassium 4.1 Chloride 128 H Carbon Dioxide 25 Anion Gap 11.1 BUN 70 H Creatinine 3.60 H GFR Calculation 20 BUN/Creatinine Ratio 19.00 Glucose 200 H POC Glucose 192 H 199 H Calculated Osmolality 342.6 H Calcium 7.5 L - EKG EKG results: interpreted by me, sinus rhythm Specialty Discharge - Follow Up or Referrals Follow up with: Alfred Tinajero MD [Physician] - 2 Weeks (Follow up with Dr. Tinajero in 2-3 weeks following discharge. EF 20%. ) <Donita Minaya - Last Filed: 03/24/17 17:09> Cardiology - PN: Subj Interval history: I have personally interviewed and evaluated the patient, reviewed the chart and discussed medical decision-making with practitioner Paul. I have read this note and agree with her documentation here in. Exam (Progress Note) - Constitutional Vitals: Period Temp Pulse Resp BP Sys/Post Pulse Ox Last 24 Hr 97.3 F-98.5 F 69-76 16-20 129-154/63-84 96-100 Result/EKG - Labs CBC & BMP: 03/19/17 04:25 03/24/17 11:37 Labs: Laboratory Results - last 24 hr 03/23/17 03/23/17 03/23/17 18:01 19:12 23:47 Sodium Potassium Chloride Carbon Dioxide Anion Gap BUN Creatinine GFR Calculation BUN/Creatinine Ratio Glucose POC Glucose 145 H 146 H 176 H Calculated Osmolality Calcium 03/24/17 03/24/17 03/24/17 04:27 11:37 11:41 Sodium 160 H* Potassium 4.1 Chloride 128 H Carbon Dioxide 25 Anion Gap 11.1 BUN 70 H Creatinine 3.60 H GFR Calculation 20 BUN/Creatinine Ratio 19.00 Glucose 200 H POC Glucose 192 H 199 H Calculated Osmolality 342.6 H Calcium 7.5 L
[2017-03-24] MEDS: CARVEDILOL 12.5 MG TABLET PO SCH (20:28)
[2017-03-25] MEDS: ALBUTEROL/IPRATROPIUM 3 ML NEB RESP TX SCH ×6 (03:48→23:40)
[2017-03-25 05:38] LABS: Basophils # 0.1 10*3/uL (0.0-0.2); Basophils % 0.8 % (0.0-0.8); Eosinophils # 0.5 10*3/uL (0.0-0.87); Eosinophils % 6.2 % (0.00-10.9); Hematocrit 29.4 VOL% (42.0-52.0); Hemoglobin 8.6 GM/DL (14.0-18.0); Immature Granulocytes % 0.4 %; Immature Granulocytes Absolute 0.03 #; Lymphocytes # 1.7 10*3/uL (1.4-4.0); Lymphocytes % 23.8 % (21.2-54.2); Mean Corpuscular HGB Conc 29.3 GM/DL (32-36); Mean Corpuscular Hemoglobin 29 PG (27-34); Mean Platelet Volume 10.9 FL (9.6-12.0); Monocytes # 0.5 10*3/uL (0.11-0.8); Monocytes % 6.2 % (1.7-12.7); NRBC # 0.04 10*3/uL; Neutrophils # 4.5 10*3/uL (1.4-7.4); Neutrophils % 62.6 % (38.7-73.9); Platelet Count 357 T/CUMM (130-400); Red Cell Distribution Width 20.5 % (9.3-17.3); White Blood Count 7.3 T/CUMM (4-12)
[2017-03-25 05:47] LABS: INR 1.1; PT Patient Result 11.6 SECS
[2017-03-25] MEDS: INSULIN REGULAR 100 UNIT/ML SUBCUT SCH ×3 (05:59→17:01)
[2017-03-25 06:01] LABS: Eosinophils 7 % (0-10); Hypochromasia 1+; Lymphocytes 22 % (20-55); Ovalocytes Slight; Platelet Estimate Adequate; Segmented Neutrophils 61 % (50-85); Total Cells Counted 100
[2017-03-25 06:18] LABS: Calcium 7.7 MG/DL (8.5-10.1); Osmolality,Calculated 337.3 MOS/KG (273-304); Potassium 3.8 MMOL/L (3.5-5.1)
--- NOTE | 2017-03-25 08:31 | EKG Report ---
Stationary ECG Study [facility] Test Date: 03/25/2017 8:32:54 AM Pat Name: EMMY ROPER Department: Room: 290 Gender: M Ambulance Officer: VELMA : 1955 Requested by: Misa Hoskins Order Number: [id number] Reading MD: FLAKO SILVA Intervals [place] Rate: 71 P: 14 TN: 168 QRS: -37 QRSD: 100 T: 130 QT: 421 QTc: 444 Interpretive Statements SINUS RHYTHM MARKED LEFT AXIS DEVIATION MINIMAL ST DEPRESSION ABNORMAL QRS-T ANGLE Electronically Signed On 03-27-17 13:18:39 CDT by FLAKO SILVA [email or web address]
[2017-03-25] MEDS: INSULIN NPH 100 UNIT/ML SUBCUT SCH ×2 (08:45→22:11)
[2017-03-25] MEDS: DESITIN 4OZ/NYSTATIN 15 GRAM MIXTURE PASTE TOP SCH (08:51)
--- NOTE | 2017-03-25 09:44 | Gastrointestinal Progress Note ---
Assessment and Plan (1) Dysphagia Status: Acute Assessment and plan: 03/25-PEG tube postponed at present due to hypernatremia. Recheck sodium tomorrow and will proceed if corrected. Dr. Rivera aware and addressing the hypernatremia. Plan an addendum to followed by Dr. Newman 03/24-protracted hospital course with respiratory failure secondary to pneumonia , now with increasing dysphagia and ST bedside swallow eval 2 failed with overt signs and symptoms of aspiration. Currently on tube feedings and tolerating well via NG. Discussed with patient regarding PEG tube placement. Patient agrees to proceed at this time. Plan for PEG tube placement tomorrow if consent can be obtained. Plan an addendum to followed by Dr. Newman. Current Visit: Yes Gastroenterology - PN: Subj Interval history: CC: Dysphagia Patient is seen awake, alert lying in bed. States he is feeling about the same today. Patient was scheduled for PEG tube placement today however he was noted to have worsening hypernatremia at [address] Rivera regarding this and she states that she ordered for an increase in free water on yesterday. PEG tube placement will be postponed at this time and will recheck sodium levels tomorrow and if corrected we will proceed at that time. Abdomen is soft, nontender. ROS: Denies shortness of breath or chest pain Exam (Progress Note) - Constitutional Vitals: Period Temp Pulse Resp BP Sys/Post Pulse Ox Last 24 Hr 97.9 F-99.0 F 69-76 16-20 146-157/72-85 93-100 General appearance: normal weight, no acute distress - Head Head exam: Present: normal inspection, normocephalic - Eye Eye exam: Present: other (Lids and conjunctive are unremarkable). Absent: scleral icterus - ENT ENT exam: Present: normal exam, normal oropharynx - Neck Neck exam: Present: normal inspection - Respiratory Respiratory exam: Present: clear to auscultation bilaterally. Absent: rales, rhonchi, wheezes - Cardiovascular Cardiovascular exam: Present: regular rate and rhythm. Absent: diastolic murmur , JVD, systolic murmur - GI/Abdominal GI/Abdominal exam: Present: normal bowel sounds, soft. Absent: ascites, distended, mass, organomegaly, tenderness - Extremities Exam Extremities exam: Present: normal inspection, full ROM - Back Exam Back exam: Present: normal inspection - Neurological Exam Neurological exam: Present: alert, oriented X3 - Psychiatric Psychiatric exam: Present: normal affect, normal mood - Skin Skin exam: Present: normal color, warm, dry Results - Labs CBC & BMP: 03/25/17 05:04 03/25/17 05:04 Lab Results: I have reviewed the past 24 hour labs Specialty Discharge - Follow Up or Referrals Follow up with: Alfred Malone MD [Physician] - 2 Weeks (Follow up with Dr. Malone in 2-3 weeks following discharge. EF 20%. )
[2017-03-25] MEDS: CYANOCOBALAMIN 500 MCG TABLET PO SCH (10:07)
[2017-03-25] MEDS: DEXTROSE 5% 1,000 ML IV SCH (10:08)
[2017-03-25] MEDS: ASPIRIN CHEW 81 MG TABLET PO SCH (10:08)
[2017-03-25] MEDS: LANSOPRAZOLE ODT 30 MG TABLET PER TUBE SCH (10:08)
[2017-03-25] MEDS: FOLIC ACID 1 MG TABLET PO SCH (10:08)
[2017-03-25] MEDS: LACTOBACILLUS RHAMNOSUS GG CAPSULE PO SCH ×2 (10:08→22:13)
[2017-03-25] MEDS: CARVEDILOL 12.5 MG TABLET PO SCH ×2 (10:08→22:12)
--- NOTE | 2017-03-25 15:11 | Hospitalist Progress Note ---
Hospitalist: Subjective Interval history: No significant overnight events noted/reported. No fever. Tolerating tubefeeds. Exam - Constitutional Vitals: Period Temp Pulse Resp BP Sys/Post Pulse Ox Last 24 Hr 97.9 F-99.0 F 69-76 16-20 146-157/72-85 93-100 Exam: General : resting comfortably lying in hospital bed in no acute distress. HEENT: NG tube in place. Cardiovascular : regular rate and rhythm. Normal S1-S2 no obvious murmurs rubs or gallops. Lungs: clear anteriorly, diminished at the bases, nonlabored breathing noted. EXT: Abdomen: Soft, nontender, nondistended, positive bowel sounds. NEURO: Sensory exam appears to be grossly intact. Gait was not assessed. Results - Labs CBC & BMP: 03/25/17 05:04 03/25/17 05:04 - Impressions (1) Dysphagia - S.T. following. NGT in place. GI for PEG tube placement once sodium better. Cont NGT feeds for now (2) Diabetes mellitus Status: Chronic Current Visit: Yes Qualifiers: Diabetes mellitus type: type 1 Diabetes mellitus complication status: with kidney complications Diabetes mellitus complication detail: with chronic kidney disease Chronic kidney disease stage: stage 4 (severe) Qualified Code (s): E10.22 - Type 1 diabetes mellitus with diabetic chronic kidney disease; N18.4 - Chronic kidney disease, stage 4 (severe) - Cont current therapy (3) Chronic kidney disease, stage IV (severe) Status: Chronic Current Visit: Yes - nephrology following (4) Bilateral pneumonia- resolved Status: Acute Assessment and plan: Respiratory status has improved. Currently not on any antibiotics. S/P extubation but now with difficulty swallowing- showing signs of overt aspiration. Still with NGT feedings for now. Adjustments made to rate in an attempt to correct hypernatremia. Start D5W with increased free water flushes. Nutrition input following. Current Visit: Yes (5) Systolic and diastolic CHF, chronic Status: Acute Current Visit: Yes - cont current therapy with Coreg. No ACEi or ARB due to elevated creatinine. Cards has plans for AICD due to poor EF later. Cards following. (6) Hypernatremia Status: Acute Current Visit: Yes -On free water replacement via tube feed. D5W ordered at 50cc/hr. Repeat RFP now and in a.m. (7) Debilitated Status: Acute Current Visit: Yes - PT/OT (8) Acute hypoxic respiratory failure due to acute decompensated CHF and pneumonia - resolved Specialty Discharge - Follow Up or Referrals Follow up with: Alfred Malone MD [Physician] - 2 Weeks (Follow up with Dr. Malone in 2-3 weeks following discharge. EF 20%. )
--- NOTE | 2017-03-25 15:30 | Cardiology Progress Note ---
Assessment and Plan - Time spent with patient Time spent with patient: Less than 30 minutes (1) Congestive heart failure Status: Acute Assessment and plan: CHF is certainly multifactorial and related to his LV dysfunction. At this time , he is clinically stable. Current Visit: Yes Qualifiers: Congestive heart failure type: unspecified congestive heart failure type Congestive heart failure chronicity: acute on chronic Qualified Code(s): I50.9 - Heart failure, unspecified (2) Cardiomyopathy Status: Chronic Assessment and plan: Per echocardiogram this admission, LV ejection fraction of 20% with severe global hypokinesis. Due to severe renal dysfunction, cannot add ANKITA inhibitor or ARB. Most likely will need an AICD/biventricular pacemaker in the future. Following discharge, he will need follow-up with Dr. Tinajero. Current Visit: Yes (3) Bilateral pneumonia Status: Acute Assessment and plan: Per clinical findings, this is improved. Primary medicine has signed off the case. Current Visit: Yes (4) Chronic kidney disease, stage IV (severe) Status: Chronic Assessment and plan: Current creatinine of 3.6. Nephrology is also following. His BUN is decreased some even with negative fluid status. Patient is not requiring hemodialysis at this time. Current Visit: Yes (5) Diabetes Status: Chronic Assessment and plan: Continue current plan of care. Defer primary management to hospital medicine. Current Visit: Yes Qualifiers: Diabetes mellitus type: type 1 Diabetes mellitus complication status: with kidney complications Diabetes mellitus complication detail: with chronic kidney disease Chronic kidney disease stage: stage 4 (severe) Qualified Code (s): E10.22 - Type 1 diabetes mellitus with diabetic chronic kidney disease; N18.4 - Chronic kidney disease, stage 4 (severe) (6) Dyslipidemia Status: Chronic Assessment and plan: Resume statin when able to. Noted he is receiving tube feedings at this time and is not taking by mouth medications. Noted that patient has failed swallowing study 2 with overt s/s of aspiration. Patient was for PEG tube placement today. This is been postponed due to hypernatremia. Current Visit: Yes (7) Hypertension Status: Chronic Assessment and plan: Blood pressure suboptimally controlled with SBP in 150's. HR's in 70's. Coreg was increased to 12.5mg PO BID. We will add low dose Imdur and Hydralazine for additional blood pressure control. Current Visit: Yes Cardiology - PN: Subj Interval history: SLOOP CAPTAIN: DR. TINAJERO Mr. Mantilla is continue to require tube feedings. He was for PEG tube placement today but this has been held due to his hypernatremia. His Louis catheter and rectal tube have been discontinued. His hypernatremia is being treated with free water flushes hourly and he has been started on D5W. Hospital medicine is following this. He currently has no overt heart failure findings and his cardiomyopathy is stable. At this time, we will sign off. If we can be of further assistance please feel free to reconsult us. Exam (Progress Note) - Constitutional Vitals: Period Temp Pulse Resp BP Sys/Post Pulse Ox Last 24 Hr 97.9 F-99.0 F 69-76 16-20 146-157/72-85 93-100 Exam: General appearance: no acute distress, over weight, pleasant, appears comfortable. - Head Head exam: Present: normal inspection. Absent: contusion, hematoma, laceration - Eye Eye exam: Absent: periorbital swelling, laceration to eyelids Pupils: Present: ASHLY. Absent: dilated, irregular - ENT ENT exam: Present: normal external ear exam - Neck Neck exam: Present: normal inspection, trachea midline. Absent: tenderness - Respiratory Respiratory exam: Present: Clear anteriorly, coarse posteriorly in bilateral bases. Absent: rhonchi, stridor, wheezes - Cardiovascular Cardiovascular exam: Present: regular rate and rhythm. Absent: bradycardia, diastolic murmur, irregular rhythm, JVD, systolic murmur, tachycardia - GI/Abdominal GI/Abdominal exam: Present: normal bowel sounds, soft. Absent: distended, firm , tenderness - Extremities Exam Extremities exam: Present: normal capillary refill, edema (pretibial, 1+) - Back Exam Back exam: Present: normal inspection - Neurological Exam Neurological exam: Present: alert, oriented X3 - Psychiatric Psychiatric exam: Present: Flat effect, normal mood. He appears to be withdrawn. Absent: agitated, anxious - Skin Skin exam: Present: warm, dry. Absent: cyanosis, diaphoretic extent make eye contact Result/EKG - Labs CBC & BMP: 03/25/17 05:04 03/25/17 05:04 Lab Results: I have reviewed the past 24 hour labs Labs: Laboratory Results - last 24 hr 03/24/17 03/24/17 03/24/17 18:13 19:33 23:49 WBC RBC Hgb Hct MCV MCH MCHC RDW Plt Count MPV Neut % (Auto) Lymph % (Auto) Porter % (Auto) Eos % (Auto) Baso % (Auto) Neut # (Auto) Lymph # (Auto) Porter # (Auto) Eos # (Auto) Baso # (Auto) Total Counted Immature Gran % Nucleated RBC % Immature Gran # Segmented Neutrophils Lymphocytes Monocytes Eosinophils Basophils Nucleated RBCs # Platelet Estimate Hypochromasia Ovalocytes Morphology Comment INR PT Patient/Control Mix Sodium Potassium Chloride Carbon Dioxide Anion Gap BUN Creatinine GFR Calculation BUN/Creatinine Ratio Glucose POC Glucose 186 H 185 H 171 H Calculated Osmolality Calcium 03/25/17 03/25/17 03/25/17 04:34 05:04 05:04 WBC 7.3 RBC 3.00 L Hgb 8.6 L Hct 29.4 L MCV 98.0 MCH 29 MCHC 29.3 L RDW 20.5 H Plt Count 357 MPV 10.9 Neut % (Auto) 62.6 Lymph % (Auto) 23.8 Porter % (Auto) 6.2 Eos % (Auto) 6.2 Baso % (Auto) 0.8 Neut # (Auto) 4.5 Lymph # (Auto) 1.7 Porter # (Auto) 0.5 Eos # (Auto) 0.5 Baso # (Auto) 0.1 Total Counted 100 Immature Gran % 0.4 Nucleated RBC % 0.6 Immature Gran # 0.03 Segmented Neutrophils 61 Lymphocytes 22 Monocytes 9 Eosinophils 7 Basophils 1.0 H Nucleated RBCs # 0.04 Platelet Estimate Adequate Hypochromasia 1+ Ovalocytes Slight Morphology Comment INR PT Patient/Control Mix Sodium 162 H* Potassium 3.8 Chloride 127 H Carbon Dioxide 26 Anion Gap 12.8 BUN 67 H Creatinine 3.50 H GFR Calculation 21 BUN/Creatinine Ratio 19.00 Glucose 82 POC Glucose 91 Calculated Osmolality 337.3 H Calcium 7.7 L 03/25/17 03/25/17 03/25/17 05:04 11:01 12:24 WBC RBC Hgb Hct MCV MCH MCHC RDW Plt Count MPV Neut % (Auto) Lymph % (Auto) Porter % (Auto) Eos % (Auto) Baso % (Auto) Neut # (Auto) Lymph # (Auto) Porter # (Auto) Eos # (Auto) Baso # (Auto) Total Counted Immature Gran % Nucleated RBC % Immature Gran # Segmented Neutrophils Lymphocytes Monocytes Eosinophils Basophils Nucleated RBCs # Platelet Estimate Hypochromasia Ovalocytes Morphology Comment INR 1.1 PT Patient/Control Mix 11.6 Sodium Potassium Chloride Carbon Dioxide Anion Gap BUN Creatinine GFR Calculation BUN/Creatinine Ratio Glucose POC Glucose 50 L 96 Calculated Osmolality Calcium - EKG EKG results: interpreted by me, sinus rhythm Specialty Discharge - Follow Up or Referrals Follow up with: Alrfed Tinajero MD [Physician] - 2 Weeks (Follow up with Dr. Tinajero in 2-3 weeks following discharge. EF 20%. )
[2017-03-25 15:53] LABS: Calcium 7.6 MG/DL (8.5-10.1); Osmolality,Calculated 335.6 MOS/KG (273-304); Phosphorous 3.8 MG/DL (2.5-4.9); Potassium 4.1 MMOL/L (3.5-5.1)
[2017-03-25] MEDS: ISOSORBIDE MONONITRATE 30 MG TABLET PO SCH (16:11)
--- NOTE | 2017-03-25 18:07 | Nephrology Progress Note ---
Nephrology - PN: Subj Interval history: He is easily arousable. He denies shortness of breath. Exam (PN)-Nephrology - Vital Signs Vital signs: Period Temp Pulse Resp BP Sys/Post Pulse Ox Last 24 Hr 97.9 F-99.0 F 69-75 16-20 147-157/72-85 93-100 Exam: ENT: NG tube in place Cardiovascular: Regular rate and rhythm. No murmur rub or gallop Lungs: Clear Extremities: No edema - Lab 03/25/17 05:04 03/25/17 15:09 Most recent lab results ABG pH 7.348 (7.35-7.45) L 03/16/17 08:16 ABG pCO2 40.1 MM HG (35-48) 03/16/17 08:16 ABG pO2 92.6 MM HG (80-95) 03/16/17 08:16 ABG HCO3 21.5 MMOL/L (20-26) 03/16/17 08:16 ABG O2 Saturation 96.3 % (95-100) 03/16/17 08:16 Calcium 7.6 MG/DL (8.5-10.1) L 03/25/17 15:09 Phosphorus 3.8 MG/DL (2.5-4.9) 03/25/17 15:09 Magnesium 3.5 MG/DL (1.8-2.4) H 03/23/17 04:29 Assessment and Plan (1) Acute hypoxemic respiratory failure Status: Resolved Assessment and plan: 61-year-old man admitted with: * Bilateral pneumonia. 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 Baseline creatinine between 3 and 4. * Acute on chronic renal failure. Creatinine is slowly improving. Fluid balance remains negative * Hypernatremia. Sodium has risen. Increased hypotonic IV fluid rate. * Nephrotic syndrome * Diabetes mellitus * Cardiomyopathy * Hypertension * Anorexia. PEG tube postponed due to hypernatremia Current Visit: Yes (2) Bilateral pneumonia Status: Acute Current Visit: Yes (3) Cardiomyopathy Status: Chronic Current Visit: Yes (4) Chronic kidney disease, stage IV (severe) Status: Chronic Current Visit: Yes (5) Diabetes Status: Chronic Current Visit: Yes Qualifiers: Diabetes mellitus type: type 1 Diabetes mellitus complication status: with kidney complications Diabetes mellitus complication detail: with chronic kidney disease Chronic kidney disease stage: stage 4 (severe) Qualified Code (s): E10.22 - Type 1 diabetes mellitus with diabetic chronic kidney disease; N18.4 - Chronic kidney disease, stage 4 (severe) (6) Hypertension Status: Chronic Current Visit: Yes Specialty Discharge - Follow Up or Referrals Follow up with: Alfred Malone MD [Physician] - 2 Weeks (Follow up with Dr. Malone in 2-3 weeks following discharge. EF 20%. )
[2017-03-25] MEDS: hydrALAZINE 25 MG TABLET PO SCH (22:14)
[2017-03-26] MEDS: DEXTROSE 5% 1,000 ML IV SCH ×3 (01:03→21:38)
[2017-03-26] MEDS: DESITIN 4OZ/NYSTATIN 15 GRAM MIXTURE PASTE TOP SCH ×3 (01:03→21:45)
[2017-03-26] MEDS: INSULIN REGULAR 100 UNIT/ML SUBCUT SCH ×4 (01:07→18:00)
[2017-03-26] MEDS: ALBUTEROL/IPRATROPIUM 3 ML NEB RESP TX SCH ×5 (02:33→20:02)
[2017-03-26 06:21] LABS: Phosphorous 3.9 MG/DL (2.5-4.9)
[2017-03-26 06:33] LABS: Calcium 7.7 MG/DL (8.5-10.1); Potassium 4.2 MMOL/L (3.5-5.1)
--- NOTE | 2017-03-26 10:06 | Gastrointestinal Progress Note ---
Assessment and Plan (1) Dysphagia Status: Acute Assessment and plan: 03/26-PEG placement postponed again due to hypernatremia. Will recheck labs tomorrow and proceed if corrected. Plan and addendum to follow by Dr Newman. 03/25-PEG tube postponed at present due to hypernatremia. Recheck sodium tomorrow and will proceed if corrected. Dr. Rivera aware and addressing the hypernatremia. Plan an addendum to followed by Dr. Newman 03/24-protracted hospital course with respiratory failure secondary to pneumonia , now with increasing dysphagia and ST bedside swallow eval 2 failed with overt signs and symptoms of aspiration. Currently on tube feedings and tolerating well via NG. Discussed with patient regarding PEG tube placement. Patient agrees to proceed at this time. Plan for PEG tube placement tomorrow if consent can be obtained. Plan an addendum to followed by Dr. Newman. Current Visit: Yes Gastroenterology - PN: Subj Interval history: CC: Dysphagia Pt is seen, lying in bed, awake and alert. States that he is feeling about the same at present time. He was to have PEG tube today however he still remains hypernatremic with slight improvement despite increase in free water. We will postpone this again today, and recheck labs tomorrow. If corrected we will proceed at that time. Abdomen is soft, nontender. He is tolerating his tube feedings well. ROS: Denies SOB or chest pain Exam (Progress Note) - Constitutional Vitals: Period Temp Pulse Resp BP Sys/Post Pulse Ox Last 24 Hr 97.4 F-98.7 F 69-87 18-20 135-167/63-94 91-100 General appearance: normal weight, no acute distress - Head Head exam: Present: normal inspection, normocephalic - Eye Eye exam: Present: other (lids and conjunctiva unremarkable). Absent: scleral icterus - ENT ENT exam: Present: normal exam, normal oropharynx - Neck Neck exam: Present: normal inspection - Respiratory Respiratory exam: Present: clear to auscultation bilaterally. Absent: rales, rhonchi, wheezes - Cardiovascular Cardiovascular exam: Present: regular rate and rhythm. Absent: diastolic murmur , JVD, systolic murmur - GI/Abdominal GI/Abdominal exam: Present: normal bowel sounds, soft. Absent: ascites, distended, mass, organomegaly, tenderness - Extremities Exam Extremities exam: Present: normal inspection, full ROM - Back Exam Back exam: Present: normal inspection - Neurological Exam Neurological exam: Present: alert, oriented X3 - Psychiatric Psychiatric exam: Present: normal affect, normal mood - Skin Skin exam: Present: normal color, warm, dry Results - Labs CBC & BMP: 03/25/17 05:04 03/26/17 03:56 Lab Results: I have reviewed the past 24 hour labs Specialty Discharge - Follow Up or Referrals Follow up with: Alfred Malone MD [Physician] - 2 Weeks (Follow up with Dr. Malone in 2-3 weeks following discharge. EF 20%. )
[2017-03-26] MEDS: FOLIC ACID 1 MG TABLET PO SCH (10:35)
[2017-03-26] MEDS: hydrALAZINE 25 MG TABLET PO SCH ×3 (10:35→21:20)
[2017-03-26] MEDS: CYANOCOBALAMIN 500 MCG TABLET PO SCH (10:35)
[2017-03-26] MEDS: LANSOPRAZOLE ODT 30 MG TABLET PER TUBE SCH (10:35)
[2017-03-26] MEDS: ISOSORBIDE MONONITRATE 30 MG TABLET PO SCH (10:35)
[2017-03-26] MEDS: LACTOBACILLUS RHAMNOSUS GG CAPSULE PO SCH ×2 (10:36→21:20)
[2017-03-26] MEDS: ASPIRIN CHEW 81 MG TABLET PO SCH (10:36)
[2017-03-26] MEDS: CARVEDILOL 12.5 MG TABLET PO SCH ×2 (10:36→21:20)
[2017-03-26] MEDS: INSULIN NPH 100 UNIT/ML SUBCUT SCH ×2 (10:37→21:19)
--- NOTE | 2017-03-26 12:02 | Hospitalist Progress Note ---
Hospitalist: Subjective Interval history: No significant overnight events noted or reported. His sodium is improving with free water replacement. No fever. Denies pain. Exam - Constitutional Vitals: Period Temp Pulse Resp BP Sys/Post Pulse Ox Last 24 Hr 97.4 F-98.8 F 69-87 18-20 135-167/63-94 91-100 Exam: General : resting comfortably lying in hospital bed in no acute distress. HEENT: NG tube in place. Cardiovascular : regular rate and rhythm. Normal S1-S2 no obvious murmurs rubs or gallops. Lungs: clear anteriorly, diminished at the bases, nonlabored breathing noted. EXT: Abdomen: Soft, nontender, nondistended, positive bowel sounds. Results - Labs CBC & BMP: 03/25/17 05:04 03/26/17 03:56 - Impressions (1) Dysphagia - S.T. following. NGT in place. GI for PEG tube placement once sodium better. Cont NGT feeds for now (2) Diabetes mellitus Status: Chronic Current Visit: Yes Qualifiers: Diabetes mellitus type: type 1 Diabetes mellitus complication status: with kidney complications Diabetes mellitus complication detail: with chronic kidney disease Chronic kidney disease stage: stage 4 (severe) Qualified Code (s): E10.22 - Type 1 diabetes mellitus with diabetic chronic kidney disease; N18.4 - Chronic kidney disease, stage 4 (severe) - Cont current therapy (3) Chronic kidney disease, stage IV (severe) Status: Chronic Current Visit: Yes - nephrology following (4) Bilateral pneumonia- resolved Status: Acute Assessment and plan: Respiratory status has improved. Currently not on any antibiotics. S/P extubation but now with difficulty swallowing- showing signs of overt aspiration. Still with NGT feedings for now. Adjustments made to rate in an attempt to correct hypernatremia. Start D5W with increased free water flushes. Nutrition input following. Current Visit: Yes (5) Systolic (EF 20%) and Grade 3 diastolic CHF, chronic Status: Acute Current Visit: Yes - cont current therapy with Coreg. No ACEi or ARB due to elevated creatinine. Cards has plans for AICD due to poor EF later. Cards following. Watch for fluid overload with IV fluid (D5W). Strict I's and O's. Daily weights. (6) Hypernatremia-improving Status: Acute Current Visit: Yes -On free water replacement via tube feed and D5W at 50cc/hr. serial RFP. (7) Debilitated Status: Acute Current Visit: Yes - PT/OT (8) Acute hypoxic respiratory failure due to acute decompensated CHF and pneumonia - resolved Discussed with nurse and GI staff. All questions answered. Specialty Discharge - Follow Up or Referrals Follow up with: Alfred Malone MD [Physician] - 2 Weeks (Follow up with Dr. Malone in 2-3 weeks following discharge. EF 20%. )
--- NOTE | 2017-03-26 17:12 | Nephrology Progress Note ---
Nephrology - PN: Subj Interval history: Patient is resting sitting up in his chair. No acute changes. Serum creatinine is noted to be 3.4. Serum sodium is now 157. The gentleman with an NG tube present. No other changes. Exam (PN)-Nephrology - Vital Signs Vital signs: Period Temp Pulse Resp BP Sys/Post Pulse Ox Last 24 Hr 97.4 F-98.8 F 70-87 18-20 129-167/63-94 91-100 - General Appearance General appearance: well-developed, well-nourished EENT: ATNC Neck: supple Respiratory: clear Cardiology: regular rate, regular rhythm Gastrointestinal: normoactive bowel sounds, no tenderness Musculoskeletal: no clubbing Psychiatric: mood/affect appropriate - Lab 03/25/17 05:04 03/26/17 03:56 Most recent lab results ABG pH 7.348 (7.35-7.45) L 03/16/17 08:16 ABG pCO2 40.1 MM HG (35-48) 03/16/17 08:16 ABG pO2 92.6 MM HG (80-95) 03/16/17 08:16 ABG HCO3 21.5 MMOL/L (20-26) 03/16/17 08:16 ABG O2 Saturation 96.3 % (95-100) 03/16/17 08:16 Calcium 7.7 MG/DL (8.5-10.1) L 03/26/17 03:56 Phosphorus 3.9 MG/DL (2.5-4.9) 03/26/17 03:56 Magnesium 3.0 MG/DL (1.8-2.4) H 03/26/17 03:56 Assessment and Plan (1) Congestive heart failure Status: Acute Current Visit: Yes Qualifiers: Congestive heart failure type: unspecified congestive heart failure type Congestive heart failure chronicity: acute on chronic Qualified Code(s): I50.9 - Heart failure, unspecified (2) Diabetes Status: Chronic Current Visit: Yes Qualifiers: Diabetes mellitus type: type 1 Diabetes mellitus complication status: with kidney complications Diabetes mellitus complication detail: with chronic kidney disease Chronic kidney disease stage: stage 4 (severe) Qualified Code (s): E10.22 - Type 1 diabetes mellitus with diabetic chronic kidney disease; N18.4 - Chronic kidney disease, stage 4 (severe) (3) Hypertension Status: Chronic Current Visit: Yes (4) Elevated brain natriuretic peptide (BNP) level Status: Chronic Assessment and plan: Component of congestive heart failure. Current Visit: No (5) Cardiomyopathy Status: Chronic Current Visit: Yes (6) Chronic kidney disease, stage IV (severe) Status: Chronic Current Visit: Yes (7) Respiratory failure Status: Resolved Assessment and plan: This issue has resolved. Current Visit: Yes Qualifiers: Chronicity: acute (8) Hypoglycemia Status: Resolved Assessment and plan: Will do mild sliding scale noted. Current Visit: Yes Specialty Discharge - Follow Up or Referrals Follow up with: Alfred Malone MD [Physician] - 2 Weeks (Follow up with Dr. Malone in 2-3 weeks following discharge. EF 20%. )
[2017-03-27] MEDS: ALBUTEROL/IPRATROPIUM 3 ML NEB RESP TX SCH ×6 (00:12→20:40)
[2017-03-27] MEDS: INSULIN REGULAR 100 UNIT/ML SUBCUT SCH ×4 (00:28→18:01)
[2017-03-27] MEDS: DEXTROSE 5% 1,000 ML IV SCH ×2 (04:36→15:57)
[2017-03-27 07:08] LABS: Calcium 7.6 MG/DL (8.5-10.1); Potassium 4.1 MMOL/L (3.5-5.1)
--- NOTE | 2017-03-27 09:46 | Hospitalist Progress Note ---
Hospitalist: Subjective Interval history: Pt sitting up in chair today. left side of face is swollen and pt states he has to squeeze it q2 weeks and pus comes out. He states it is painful. No Fever. Right eye has redness but he denies pain or trauma. Awaiting PEG. Exam - Constitutional Vitals: Period Temp Pulse Resp BP Sys/Post Pulse Ox Last 24 Hr 97.7 F-98.8 F 70-95 16-20 100-161/49-98 91-100 Exam: General : Awake, alert, sitting in hospital chair in no acute distress. Left facial swelling is soft, fluctuant mass at left cheek without overlying erythema or increased warmth. Injection of the sclera of right eye without drainage noted. Extraocular muscles are intact. HEENT: NG tube in place. Cardiovascular : regular rate and rhythm. Normal S1-S2 no obvious murmurs rubs or gallops. Lungs: clear anteriorly, diminished at the bases, nonlabored breathing noted. Abdomen: Soft, nontender, nondistended, positive bowel sounds. Extremities warm and well-perfused no clubbing cyanosis or edema. SCDs are in place. Results - Labs CBC & BMP: 03/25/17 05:04 03/27/17 06:05 - Impressions (1) Dysphagia - S.T. following. NGT in place. GI for PEG tube placement I am told today. Cont NGT feeds on hold for now (2) Left facial mass ? facial abscess - consult surgery for possible I and D. Warm/ cool compresses to left side of face and Check CT face. Empiric antibiotics with Cleocin (3) Diabetes mellitus Status: Chronic Current Visit: Yes Qualifiers: Diabetes mellitus type: type 1 Diabetes mellitus complication status: with kidney complications Diabetes mellitus complication detail: with chronic kidney disease Chronic kidney disease stage: stage 4 (severe) Qualified Code (s): E10.22 - Type 1 diabetes mellitus with diabetic chronic kidney disease; N18.4 - Chronic kidney disease, stage 4 (severe) - Cont current therapy (4) Chronic kidney disease, stage IV (severe) Status: Chronic Current Visit: Yes - nephrology following (5) Bilateral pneumonia- resolved Status: Acute Assessment and plan: Respiratory status has improved. Currently not on any antibiotics. S/P extubation but now with difficulty swallowing- showing signs of overt aspiration. Still with NGT feedings for now. Adjustments made to rate in an attempt to correct hypernatremia. Start D5W with increased free water flushes. Nutrition input following. Current Visit: Yes (6) Systolic (EF 20%) and Grade 3 diastolic CHF, chronic Status: Acute Current Visit: Yes - cont current therapy with Coreg. No ACEi or ARB due to elevated creatinine. Cards has plans for AICD due to poor EF later. Cards following. Watch for fluid overload with IV fluid (D5W). Strict I's and O's. Daily weights. (7) Hypernatremia-improving 164 to 150. Status: Acute Current Visit: Yes -On free water replacement via tube feed and D5W at 50cc/hr. serial RFP. (8) Debilitated Status: Acute Current Visit: Yes - PT/OT (9) Acute hypoxic respiratory failure due to acute decompensated CHF and pneumonia - resolved Discussed with nurse and GI staff. All questions answered. Specialty Discharge - Follow Up or Referrals Follow up with: Alfred Malone MD [Physician] - 2 Weeks (Follow up with Dr. Malone in 2-3 weeks following discharge. EF 20%. )
[2017-03-27] MEDS: INSULIN NPH 100 UNIT/ML SUBCUT SCH ×2 (10:58→20:10)
[2017-03-27] MEDS: DESITIN 4OZ/NYSTATIN 15 GRAM MIXTURE PASTE TOP SCH ×2 (11:02→20:10)
[2017-03-27] MEDS ORDERED: POLYVINYL ALCOHOL 1.4% OPH SOLN 15 ML BOTTLE RIGHT EYE PRN (11:26)
[2017-03-27] MEDS ORDERED: CLINDAMYCIN 600 MG/4 ML VIAL IM SCH (12:00)
--- NOTE | 2017-03-27 12:36 | CT Report ---
CT facial bones wo con Indication: Left-sided facial swelling. Clinical concern for abscess. Comparison: None. Technique: Routine CT of the face was performed without the administration of intravenous contrast. Axial and coronal MPR images were submitted for interpretation. The CT examination was performed using one or more of the following dose reduction techniques: Automatic exposure control, adjustment of the mA and kV according to patient size, use of acute or iterative reconstruction techniques. Findings: Abutting the left mandible adjacent to mandibular angle and proximal body, there is a rounded focus of soft tissue attenuation measuring 2.6 x 2.5 cm the overlying within the soft tissues, there is a small suggested fluid collection somewhat irregularly shaped measuring 2.1 x 3.2 cm. Patient is edentulous. Right-sided NG tube is present. Intraorbital contents demonstrate prior left cataract surgery. Paranasal sinuses and mastoid air cells appear clear. Muscles of mastication demonstrate no significant abnormalities. Bony structure of the mandible and maxillary alveolar ridge appear intact. Impression: 1. Fluid collection underlying the skin surface on the left could reflect evidence of abscess. 2. Rounded focus of soft tissue attenuation within the ventricle cavity adjacent the left mandible is of uncertain etiology. The patient is a dentulous. No definite abnormality of the pterygopalatine fossa is present and differential considerations include soft tissue mass versus phlegmon within the buccal cavity. Correlation with physical exam is recommended. 03/27/2017 12:31 PM PROCEDURE INTERPRETED AT [facility] DEPARTMENT OF RADIOLOGY Final Report Signed by: Dr. Anderson Funk
--- NOTE | 2017-03-27 13:28 | Nephrology Progress Note ---
Nephrology - PN: Subj Interval history: The patient is resting. He is sitting on the side of the bed. He is scheduled for PEG tube today. Serum sodium continues to show signs of improvement. Serum creatinine is stable at 3.4. Exam (PN)-Nephrology - Vital Signs Vital signs: Period Temp Pulse Resp BP Sys/Post Pulse Ox Last 24 Hr 97.0 F-98.7 F 70-95 16-20 100-164/49-107 91-99 - General Appearance General appearance: well-developed EENT: ATNC Neck: supple Cardiology: regular rate, regular rhythm Gastrointestinal: normoactive bowel sounds Musculoskeletal: no clubbing Psychiatric: cooperative - Lab 03/25/17 05:04 03/27/17 06:05 Most recent lab results ABG pH 7.348 (7.35-7.45) L 03/16/17 08:16 ABG pCO2 40.1 MM HG (35-48) 03/16/17 08:16 ABG pO2 92.6 MM HG (80-95) 03/16/17 08:16 ABG HCO3 21.5 MMOL/L (20-26) 03/16/17 08:16 ABG O2 Saturation 96.3 % (95-100) 03/16/17 08:16 Calcium 7.6 MG/DL (8.5-10.1) L 03/27/17 06:05 Phosphorus 3.9 MG/DL (2.5-4.9) 03/26/17 03:56 Magnesium 3.0 MG/DL (1.8-2.4) H 03/26/17 03:56 Assessment and Plan (1) Congestive heart failure Status: Chronic Current Visit: Yes Qualifiers: Congestive heart failure type: unspecified congestive heart failure type Congestive heart failure chronicity: acute on chronic Qualified Code(s): I50.9 - Heart failure, unspecified (2) Diabetes Status: Chronic Current Visit: Yes Qualifiers: Diabetes mellitus type: type 1 Diabetes mellitus complication status: with kidney complications Diabetes mellitus complication detail: with chronic kidney disease Chronic kidney disease stage: stage 4 (severe) Qualified Code (s): E10.22 - Type 1 diabetes mellitus with diabetic chronic kidney disease; N18.4 - Chronic kidney disease, stage 4 (severe) (3) Hypertension Status: Chronic Current Visit: Yes (4) Elevated brain natriuretic peptide (BNP) level Status: Chronic Assessment and plan: Component of congestive heart failure. Current Visit: No (5) Cardiomyopathy Status: Chronic Current Visit: Yes (6) Chronic kidney disease, stage IV (severe) Status: Chronic Current Visit: Yes (7) Respiratory failure Status: Resolved Assessment and plan: This issue has resolved. Current Visit: Yes Qualifiers: Chronicity: acute (8) Hypoglycemia Status: Resolved Assessment and plan: Will do mild sliding scale noted. Current Visit: Yes Specialty Discharge - Follow Up or Referrals Follow up with: Alfred Malone MD [Physician] - 2 Weeks (Follow up with Dr. Malone in 2-3 weeks following discharge. EF 20%. )
--- NOTE | 2017-03-27 14:24 | History and Physical Update ---
History and Physical Update - History and Physical H&P was reviewed, the patient examined and there: are no changes in the patients condition since last H&P was completed. - Physical Exam Mental Status: alert and oriented Heart: regular rate and rhythm Lung: clear to auscultation Abdomen: within normal limits Vitals: within normal limits
--- NOTE | 2017-03-27 14:27 | Operative Note ---
Date of procedure: 03/27/17 Pre-op diagnosis: Oropharyngeal dysphagia, inability to eat Procedure: Procedure: Esophagogastroduodenoscopy with percutaneous endoscopic gastrostomy tube placement Brief clinical abstract: Patient is a 61-year-old male who has had prolonged hospital course with pneumonia. He has developed oropharyngeal dysphagia and documented aspiration by speech pathology. We are asked to place gastrostomy tube for nutritional support. Indication for procedure: Oropharyngeal dysphagia, inability to eat Endoscopic findings:[After informed consent was obtained, the patient was placed in the left lateral decubitus position. The gastroscope was inserted in the upper esophagus under direct vision with no resistance encountered. Esophageal mucosa appeared normal with squamocolumnar junction sharply demarcated at the diaphragmatic indentation. The endoscope was advanced in the stomach which was carefully examined including retroflexed view of the cardia and fundus with no abnormality seen. The pyloric channel, duodenal bulb, second and third portion of the duodenum were normal. The endoscope was withdrawn back into the stomach. Site for gastrostomy tube placement was selected using external indentation and endoscopic transillumination. Sterile field was created over the anterior abdomen at the site in the mid upper abdomen. 5 cc of 1% lidocaine was injected subcutaneously down to the level of the gastric wall. An approximately 4 mm superficial transverse incision was made with scalpel. Cook 20 [place] gastrostomy tube was placed with pull technique without difficulty. The tube was secured at the 3 cm beni on the skin surface with external bumper applied at that level. A dressing was applied at the site afterwards. He appeared to tolerate the procedure well. Impression: #1 normal EGD #2 status post successful PEG tube placement Recommendations: May use PEG tube to give medications as needed today. Would start tube feedings through PEG tube tomorrow morning if PEG site is clear. Keep abdominal binder over PEG tube and do not allow patient to get hands on feeding tube. Anesthesia: MAC Surgeon / Physician: Alfonso Newman Estimated blood loss: minimal Specimens: none sent Condition: stable Disposition: post procedure unit Results - Labs CBC & BMP: 03/25/17 05:04 03/27/17 06:05 Discharge Plan - Discharge Medications No Action Insulin Detemir [Levemir FlexPen] 25 unit SUBCUT BEDTIME Simvastatin [Zocor] 10 mg PO BEDTIME Omeprazole [Prilosec] 20 mg PO DAILY Metoprolol Succinate Xl [Toprol Xl] 100 mg PO DAILY Folic Acid Tab 1 mg PO DAILY Cyanocobalamin (Vitamin B-12) [Vitamin B-12] 1,000 mcg PO DAILY Aspirin EC Tab 81 mg PO DAILY tablet Furosemide Tab [Lasix Tab] 40 mg PO BID DIURETIC tablet hydrALAZINE TAB [Apresoline Tab] 50 mg PO TID tablet metOLazone [Zaroxolyn] 5 mg PO DAILY tablet Docusate Sodium Cap [Colace Cap] 100 mg PO BID - Follow Up or Referral Follow Up: Alfred Malone MD [Physician] - 2 Weeks (Follow up with Dr. Malone in 2-3 weeks following discharge. EF 20%. ) - Forms/Instructions
--- NOTE | 2017-03-27 14:45 | Anesthesia Post-Op ---
Anesthesia Post OP - Post Ansesthetic Evaluation Patient seen in post op: Yes Resp: within normal limits CV: within normal limits Mental: within normal limits Temp: within normal limits [id number]: within normal limits Nausea and Vomiting: within normal limits Pain: within normal limits
[2017-03-27] MEDS: LANSOPRAZOLE ODT 30 MG TABLET PER TUBE SCH (15:56)
[2017-03-27] MEDS: hydrALAZINE 25 MG TABLET PO SCH ×3 (15:56→20:10)
[2017-03-27] MEDS: CARVEDILOL 12.5 MG TABLET PO SCH ×2 (15:56→20:09)
[2017-03-27] MEDS: ASPIRIN CHEW 81 MG TABLET PO SCH (15:56)
[2017-03-27] MEDS: FOLIC ACID 1 MG TABLET PO SCH (15:56)
[2017-03-27] MEDS: LACTOBACILLUS RHAMNOSUS GG CAPSULE PO SCH ×2 (15:56→20:09)
[2017-03-27] MEDS: CYANOCOBALAMIN 500 MCG TABLET PO SCH (15:56)
[2017-03-27] MEDS: ISOSORBIDE MONONITRATE 30 MG TABLET PO SCH (15:56)
[2017-03-27] MEDS ORDERED: CLINDAMYCIN 600 MG/4 ML VIAL IV SCH (19:39)
[2017-03-27] MEDS: CLINDAMYCIN INJ 600 MG in PREMIX 1 EACH IV SCH (19:51)
[2017-03-28] MEDS: ALBUTEROL/IPRATROPIUM 3 ML NEB RESP TX SCH ×6 (00:07→20:51)
[2017-03-28] MEDS: INSULIN REGULAR 100 UNIT/ML SUBCUT SCH ×5 (00:35→23:55)
[2017-03-28] MEDS: CLINDAMYCIN INJ 600 MG in PREMIX 1 EACH IV SCH ×3 (04:37→19:54)
[2017-03-28] MEDS: DEXTROSE 5% 1,000 ML IV SCH (04:37)
[2017-03-28] MEDS: ACETAMINOPHEN 325 MG TABLET PO PRN ×2 (05:03→11:20)
[2017-03-28 05:08] LABS: Calcium 7.7 MG/DL (8.5-10.1); Osmolality,Calculated 311.1 MOS/KG (273-304); Potassium 3.8 MMOL/L (3.5-5.1)
[2017-03-28] MEDS: LACTOBACILLUS RHAMNOSUS GG CAPSULE PO SCH ×2 (08:09→20:01)
[2017-03-28] MEDS: LANSOPRAZOLE ODT 30 MG TABLET PER TUBE SCH (08:09)
[2017-03-28] MEDS: ISOSORBIDE MONONITRATE 30 MG TABLET PO SCH (08:09)
[2017-03-28] MEDS: CYANOCOBALAMIN 500 MCG TABLET PO SCH (08:09)
[2017-03-28] MEDS: hydrALAZINE 25 MG TABLET PO SCH ×3 (08:09→20:01)
[2017-03-28] MEDS: INSULIN NPH 100 UNIT/ML SUBCUT SCH ×2 (08:09→20:01)
[2017-03-28] MEDS: CARVEDILOL 12.5 MG TABLET PO SCH ×2 (08:09→20:01)
[2017-03-28] MEDS: ASPIRIN CHEW 81 MG TABLET PO SCH (08:09)
[2017-03-28] MEDS: FOLIC ACID 1 MG TABLET PO SCH (08:09)
[2017-03-28] MEDS: DESITIN 4OZ/NYSTATIN 15 GRAM MIXTURE PASTE TOP SCH ×2 (08:10→20:02)
[2017-03-28] MEDS ORDERED: LIDOCAINE 2%/EPI 20 ML VIAL ONE (10:04)
[2017-03-28] MEDS ORDERED: BUPIVACAINE 0.25% /EPI 10 ML VIAL ONE (10:05)
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
[2017-03-28] MEDS: MUPIROCIN 2% OINT 22 GM TUBE TOP SCH ×2 (10:52→20:02)
[2017-03-28] MEDS: CHLORHEXIDINE 0.12% ORAL RINSE 60 ML BOTTLE SWISH/SPIT SCH ×2 (11:25→20:01)
[2017-03-28] MEDS ORDERED: FUROSEMIDE 20 MG/2 ML VIAL IM ONE (11:45)
--- NOTE | 2017-03-28 11:52 | Hospitalist Progress Note ---
Hospitalist: Subjective Interval history: No new complaints. No significant overnight events. The same a.m. he did have an I&D done by ENT and wound cultures were sent. He was awaiting tube feed resumption at the time of my exam Exam - Constitutional Vitals: Period Temp Pulse Resp BP Sys/Post Pulse Ox Last 24 Hr 97.0 F-101.1 F 86-98 18-22 118-164/71-107 94-100 Exam: General : Awake, alert, sitting in hospital chair in no acute distress. Left facial swelling is soft, fluctuant mass at left cheek without overlying erythema or increased warmth. Injection of the sclera of right eye without drainage noted. Extraocular muscles are intact. HEENT: NG tube in place. Cardiovascular : regular rate and rhythm. Normal S1-S2 no obvious murmurs rubs or gallops. Lungs: clear anteriorly, rales at the left lung base, nonlabored breathing noted. Abdomen: Soft, nontender, nondistended, positive bowel sounds. Extremities warm and well-perfused no clubbing cyanosis or edema. SCDs are in place. Results - Labs CBC & BMP: 03/25/17 05:04 03/28/17 04:06 - Impressions (1) Dysphagia s/p PEG 03/27 - S.T. following. Failed swallow eval x 2. Resume tubefeeds. (2) Left facial mass ? facial abscess s/p I and D 03/28 - Appreciate Dr. Grajeda (ENT). CT face showed left facial abscess. Empiric antibiotics with Cleocin. F/U Wound culture. (3) Diabetes mellitus Status: Chronic Current Visit: Yes Qualifiers: Diabetes mellitus type: type 1 Diabetes mellitus complication status: with kidney complications Diabetes mellitus complication detail: with chronic kidney disease Chronic kidney disease stage: stage 4 (severe) Qualified Code (s): E10.22 - Type 1 diabetes mellitus with diabetic chronic kidney disease; N18.4 - Chronic kidney disease, stage 4 (severe) - Cont current therapy (4) Chronic kidney disease, stage IV (severe) Status: Chronic Current Visit: Yes - nephrology following (5) Bilateral pneumonia- resolved Status: Acute Assessment and plan: Respiratory status has improved. Currently not on any antibiotics. S/P extubation on RA. Pulmonology signed off. Current Visit: Yes (6) Systolic (EF 20%) and Grade 3 diastolic CHF, chronic Status: Acute Current Visit: Yes - cont current therapy with Coreg. No ACEi or ARB due to elevated creatinine. Cards has plans for AICD due to poor EF later. Cards following. Will stop IVF. Give Lasix 20mg IV x 1 now. Watch I and O's closely. Daily weights. (7) Hypernatremia-improving 164 to 149. Status: Acute Current Visit: Yes -On free water replacement via tube feed and D5W at 50cc/hr. Stop D5W. serial RFP. (8) Debilitated Status: Acute Current Visit: Yes - PT/OT (9) Acute hypoxic respiratory failure due to acute decompensated CHF and pneumonia - resolved Discussed with nurse and pt. All questions answered. Hopefully to rehab soon. I will be away several days. One of my associates will follow in my absence. Specialty Discharge - Follow Up or Referrals Follow up with: Alfred Maloen MD [Physician] - 2 Weeks (Follow up with Dr. Malone in 2-3 weeks following discharge. EF 20%. )
[2017-03-28] MEDS ORDERED: FUROSEMIDE 20 MG/2 ML VIAL IV ONE (12:38)
--- NOTE | 2017-03-28 14:28 | Nephrology Progress Note ---
Nephrology - PN: Subj Interval history: Pt denies SOB/pain. Exam (PN)-Nephrology - Vital Signs Vital signs: Period Temp Pulse Resp BP Sys/Post Pulse Ox Last 24 Hr 98.7 F-101.1 F 86-98 18-22 118-162/71-100 94-100 - General Appearance General appearance: well-developed, chronically ill EENT: ATNC, PERRL, hearing intact, vision intact Neck: no JVD, no thyromegaly Respiratory: no kyphosis, clear Cardiology: no murmurs, no rub Gastrointestinal: normoactive bowel sounds, no tenderness Integumentary: no rash, warm and dry Neurologic: no focal deficit, no asterixis Musculoskeletal: no deformities, no erythema Psychiatric: mood/affect appropriate, cooperative - Lab 03/25/17 05:04 03/28/17 04:06 Most recent lab results ABG pH 7.348 (7.35-7.45) L 03/16/17 08:16 ABG pCO2 40.1 MM HG (35-48) 03/16/17 08:16 ABG pO2 92.6 MM HG (80-95) 03/16/17 08:16 ABG HCO3 21.5 MMOL/L (20-26) 03/16/17 08:16 ABG O2 Saturation 96.3 % (95-100) 03/16/17 08:16 Calcium 7.7 MG/DL (8.5-10.1) L 03/28/17 04:06 Phosphorus 3.9 MG/DL (2.5-4.9) 03/26/17 03:56 Magnesium 3.0 MG/DL (1.8-2.4) H 03/26/17 03:56 Assessment and Plan (1) Chronic kidney disease, stage IV (severe) Problem details: stable to improved. Status: Chronic Assessment and plan: no new recs. Current Visit: Yes Specialty Discharge - Follow Up or Referrals Follow up with: Alfred Malone MD [Physician] - 2 Weeks (Follow up with Dr. Malone in 2-3 weeks following discharge. EF 20%. )
--- NOTE | 2017-03-28 17:23 | Gastrointestinal Progress Note ---
Assessment and Plan (1) Dysphagia Status: Acute Assessment and plan: Patient appears stable after PEG tube placement and is tolerating tube feedings well. I will sign off. Please call if needed. Current Visit: Yes Gastroenterology - PN: Subj Interval history: Patient appears to be tolerating tube feedings well. Denies abdominal pain or nausea. Exam (Progress Note) - Constitutional Vitals: Period Temp Pulse Resp BP Sys/Post Pulse Ox Last 24 Hr 98.7 F-101.1 F 86-95 18-22 118-155/71-89 94-99 General appearance: no acute distress - Head Head exam: Present: other (Bandage over wound on left neck/jaw) - Eye Eye exam: Present: EOMI. Absent: scleral icterus - Respiratory Respiratory exam: Present: clear to auscultation bilaterally - Cardiovascular Cardiovascular exam: Present: regular rate and rhythm. Absent: gallop, rubs - GI/Abdominal GI/Abdominal exam: Present: soft, other (PEG site clear without discharge). Absent: distended, tenderness - Extremities Exam Extremities exam: Absent: calf tenderness, edema - Neurological Exam Neurological exam: Present: alert, oriented X3, CN II-XII intact - Skin Skin exam: Present: warm, dry Results - Labs CBC & BMP: 03/25/17 05:04 03/28/17 04:06 Lab Results: I have reviewed the past 24 hour labs Specialty Discharge - Follow Up or Referrals Follow up with: Alfred Malone MD [Physician] - 2 Weeks (Follow up with Dr. Malone in 2-3 weeks following discharge. EF 20%. )
[2017-03-29] MEDS: ALBUTEROL/IPRATROPIUM 3 ML NEB RESP TX SCH ×7 (00:06→23:56)
[2017-03-29] MEDS: CLINDAMYCIN INJ 600 MG in PREMIX 1 EACH IV SCH ×3 (04:30→20:35)
[2017-03-29 05:44] LABS: Calcium 6.9 MG/DL (8.5-10.1); Osmolality,Calculated 309.1 MOS/KG (273-304); Potassium 3.6 MMOL/L (3.5-5.1)
[2017-03-29] MEDS: INSULIN REGULAR 100 UNIT/ML SUBCUT SCH ×3 (05:50→17:31)
[2017-03-29] MEDS: MUPIROCIN 2% OINT 22 GM TUBE TOP SCH ×2 (08:18→20:38)
--- NOTE | 2017-03-29 08:23 | Hospitalist Progress Note ---
Assessment and Plan - Time spent with patient Time spent with patient: Less than 30 minutes (1) Dysphagia Status: Acute Assessment and plan: PEG tube is been placed on 03/27. Tube feedings have been initiated and are being tolerated at this time. Continue nutritional support. Current Visit: Yes (2) Facial abscess Status: Acute Assessment and plan: Dr. Grajeda has performed I&D of abscess and cultures are pending. Continuing empiric IV antibiotics. Current Visit: Yes (3) Chronic kidney disease, stage IV (severe) Problem details: stable to improved. Status: Chronic Assessment and plan: Stable and followed by nephrology. Current Visit: Yes (4) Bilateral pneumonia Status: Resolved Assessment and plan: This is been treated with complete IV antibiotics and the patient remains afebrile. Current Visit: Yes (5) Hypernatremia Status: Acute Assessment and plan: Patient remains hypernatremic with a sodium of 149. Continue feedings and increase free water supplementation. Current Visit: Yes (6) Diabetes Status: Chronic Assessment and plan: Blood sugars doing well at this time. Continue current medical regimen. Current Visit: Yes Qualifiers: Diabetes mellitus type: type 1 Diabetes mellitus complication status: with kidney complications Diabetes mellitus complication detail: with chronic kidney disease Chronic kidney disease stage: stage 4 (severe) Qualified Code (s): E10.22 - Type 1 diabetes mellitus with diabetic chronic kidney disease; N18.4 - Chronic kidney disease, stage 4 (severe) (7) Disposition Status: Acute Assessment and plan: Awaiting approval for transfer to rehab. Current Visit: Yes Hospitalist: Subjective Interval history: No new c/o. Chart reviewed. No cp, sob. Exam - Constitutional Vitals: Period Temp Pulse Resp BP Sys/Post Pulse Ox Last 24 Hr 98.0 F-99.1 F 81-90 16-20 122-150/66-84 96-99 General appearance: no acute distress - Head Head exam: Present: normocephalic - Eye Eye exam: Present: EOMI Pupils: Present: ASHLY - ENT ENT exam: Present: other (left facial swelling, dressing intact) - Neck Neck exam: Present: normal inspection - Respiratory Respiratory exam: Present: clear to auscultation bilaterally - Cardiovascular Cardiovascular exam: Present: regular rate and rhythm. Absent: systolic murmur , tachycardia - GI/Abdominal GI/Abdominal exam: Present: normal bowel sounds, soft. Absent: tenderness, rebound - Extremities Exam Extremities exam: Absent: calf tenderness, edema - Back Exam Back exam: Present: normal inspection - Neurological Exam Neurological exam: Present: alert, oriented X3, CN II-XII intact - Psychiatric Psychiatric exam: Present: normal affect, normal mood. Absent: agitated, anxious - Skin Skin exam: Present: warm, dry. Absent: rash Results - Labs CBC & BMP: 03/25/17 05:04 03/29/17 04:47 Lab Results: I have reviewed the past 24 hour labs Specialty Discharge - Follow Up or Referrals Follow up with: Alfred Malone MD [Physician] - 2 Weeks (Follow up with Dr. Malone in 2-3 weeks following discharge. EF 20%. )
[2017-03-29] MEDS: CYANOCOBALAMIN 500 MCG TABLET PO SCH (08:35)
[2017-03-29] MEDS: LACTOBACILLUS RHAMNOSUS GG CAPSULE PO SCH ×2 (08:35→20:38)
[2017-03-29] MEDS: ASPIRIN CHEW 81 MG TABLET PO SCH (08:35)
[2017-03-29] MEDS: ISOSORBIDE MONONITRATE 30 MG TABLET PO SCH (08:35)
[2017-03-29] MEDS: hydrALAZINE 25 MG TABLET PO SCH ×3 (08:36→20:38)
[2017-03-29] MEDS: INSULIN NPH 100 UNIT/ML SUBCUT SCH ×2 (08:36→20:38)
[2017-03-29] MEDS: CARVEDILOL 12.5 MG TABLET PO SCH ×2 (08:36→20:38)
[2017-03-29] MEDS: FOLIC ACID 1 MG TABLET PO SCH (08:36)
[2017-03-29] MEDS: LANSOPRAZOLE ODT 30 MG TABLET PER TUBE SCH (08:36)
[2017-03-29] MEDS: DESITIN 4OZ/NYSTATIN 15 GRAM MIXTURE PASTE TOP SCH ×2 (08:37→20:39)
--- NOTE | 2017-03-29 08:38 | Progress Note ---
Assessment and Plan (1) Facial abscess Status: Acute Assessment and plan: I&D with packing and irrigation performed at bedside please see procedure note. I will continue to follow this patient and repacked and re-irrigate tomorrow cultures taken of the abscess Current Visit: Yes (2) Cellulitis and abscess of face Status: Acute Current Visit: Yes Family Medicine PN Sub Interval history: Packing removed with irrigation and debridement of subcutaneous tissue performed at bedside tolerated well awaiting culture results Exam (Progress Note) - Constitutional Vitals: Period Temp Pulse Resp BP Sys/Post Pulse Ox Last 24 Hr 98.0 F-99.1 F 81-90 16-20 122-150/66-84 96-99 General appearance: no acute distress, over weight - Head Head exam: Present: other (Improve left facial edema currently packing in place and removed with new packing placed with irrigation and debridement of abscess pocket.) - ENT ENT exam: Present: normal exam, normal external ear exam, other (Left buccal mucosa still edematous swollen and erythemic we will continue to watch this and do not feel this is a secondary abscess pocket that could be I think this is just continued edema from the cheek abscess that went to the buccal mucosa.) - Neck Neck exam: Present: normal inspection - GI/Abdominal GI/Abdominal exam: Present: soft - Neurological Exam Neurological exam: Present: alert, oriented X3, CN II-XII intact - Psychiatric Psychiatric exam: Present: normal affect, normal mood - Skin Skin exam: Present: normal color, warm Results - Labs CBC & BMP: 03/25/17 05:04 03/29/17 04:47 Specialty Discharge - Follow Up or Referrals Follow up with: Alfred Malone MD [Physician] - 2 Weeks (Follow up with Dr. Malone in 2-3 weeks following discharge. EF 20%. )
[2017-03-29] MEDS: ACETAMINOPHEN 325 MG TABLET PO PRN ×3 (08:43→20:38)
[2017-03-29] MEDS: CHLORHEXIDINE 0.12% ORAL RINSE 60 ML BOTTLE SWISH/SPIT SCH ×2 (09:39→20:39)
--- NOTE | 2017-03-29 12:38 | Nephrology Progress Note ---
Nephrology - PN: Subj Interval history: Pt denies worsening SOB/pain. Exam (PN)-Nephrology - Vital Signs Vital signs: Period Temp Pulse Resp BP Sys/Post Pulse Ox Last 24 Hr 98.0 F-99.1 F 81-90 15-20 122-150/66-84 96-99 - General Appearance General appearance: well-developed, chronically ill EENT: ATNC, PERRL, mucous membranes dry, hearing intact, vision intact Neck: no JVD, supple Respiratory: no kyphosis, clear Cardiology: no murmurs, no rub Gastrointestinal: normoactive bowel sounds, no tenderness Integumentary: no rash, warm and dry Neurologic: no focal deficit, no asterixis, alert and oriented x3 Musculoskeletal: no erythema, no cyanosis Psychiatric: mood/affect appropriate, cooperative - Lab 03/25/17 05:04 03/29/17 04:47 Most recent lab results ABG pH 7.348 (7.35-7.45) L 03/16/17 08:16 ABG pCO2 40.1 MM HG (35-48) 03/16/17 08:16 ABG pO2 92.6 MM HG (80-95) 03/16/17 08:16 ABG HCO3 21.5 MMOL/L (20-26) 03/16/17 08:16 ABG O2 Saturation 96.3 % (95-100) 03/16/17 08:16 Calcium 6.9 MG/DL (8.5-10.1) L 03/29/17 04:47 Phosphorus 3.9 MG/DL (2.5-4.9) 03/26/17 03:56 Magnesium 3.0 MG/DL (1.8-2.4) H 03/26/17 03:56 Assessment and Plan (1) Chronic kidney disease, stage IV (severe) Problem details: stable to improved. Status: Chronic Assessment and plan: no new recs. Current Visit: Yes Specialty Discharge - Follow Up or Referrals Follow up with: Alfred Malone MD [Physician] - 2 Weeks (Follow up with Dr. Malone in 2-3 weeks following discharge. EF 20%. )
[2017-03-30] MEDS: INSULIN REGULAR 100 UNIT/ML SUBCUT SCH ×4 (00:07→17:44)
[2017-03-30] MEDS: ACETAMINOPHEN 325 MG TABLET PO PRN ×2 (01:05→11:42)
[2017-03-30] MEDS: ALBUTEROL/IPRATROPIUM 3 ML NEB RESP TX SCH ×5 (04:06→21:00)
[2017-03-30] MEDS: CLINDAMYCIN INJ 600 MG in PREMIX 1 EACH IV SCH ×3 (04:36→21:50)
[2017-03-30 05:26] LABS: Magnesium 2.6 MG/DL (1.8-2.4); Phosphorous 4.2 MG/DL (2.5-4.9); Prealbumin 9.7 MG/DL (20-40)
[2017-03-30 05:26] LABS: Calcium 6.9 MG/DL (8.5-10.1); Osmolality,Calculated 305.4 MOS/KG (273-304); Potassium 3.7 MMOL/L (3.5-5.1)
[2017-03-30] MEDS: hydrALAZINE 25 MG TABLET PO SCH ×3 (09:05→21:22)
[2017-03-30] MEDS: INSULIN NPH 100 UNIT/ML SUBCUT SCH ×2 (09:05→21:16)
[2017-03-30] MEDS: CYANOCOBALAMIN 500 MCG TABLET PO SCH (09:05)
[2017-03-30] MEDS: ASPIRIN CHEW 81 MG TABLET PO SCH (09:06)
[2017-03-30] MEDS: ISOSORBIDE MONONITRATE 30 MG TABLET PO SCH (09:06)
[2017-03-30] MEDS: FOLIC ACID 1 MG TABLET PO SCH (09:06)
[2017-03-30] MEDS: LANSOPRAZOLE ODT 30 MG TABLET PER TUBE SCH (09:06)
[2017-03-30] MEDS: MUPIROCIN 2% OINT 22 GM TUBE TOP SCH ×2 (09:06→21:18)
[2017-03-30] MEDS: CARVEDILOL 12.5 MG TABLET PO SCH ×2 (09:06→21:22)
[2017-03-30] MEDS: DESITIN 4OZ/NYSTATIN 15 GRAM MIXTURE PASTE TOP SCH ×2 (09:06→21:19)
[2017-03-30] MEDS: CHLORHEXIDINE 0.12% ORAL RINSE 60 ML BOTTLE SWISH/SPIT SCH ×2 (09:06→21:17)
[2017-03-30] MEDS: LACTOBACILLUS RHAMNOSUS GG CAPSULE PO SCH ×2 (09:07→21:22)
[2017-03-30] MEDS ORDERED: LIDOCAINE 2% 5 ML VIAL ONE (14:24)
[2017-03-30] MEDS ORDERED: PROPOFOL 200 MG/20 ML VIAL IV ONE (14:24)
--- NOTE | 2017-03-30 14:47 | Hospitalist Progress Note ---
Assessment and Plan (1) Cellulitis and abscess of face Status: Acute Assessment and plan: 1)ID- has completed antibiotics for pneumonia, now with local care and antibiotics for facial abscess. 2)dysphagia- has PEG now 3)diabetes- controlled 4)hypernatremia- sodiumcoming down to 157 with increased free water. 5)CKD IV- stable 6)dispo- to rehab when approved. Current Visit: Yes (2) Diabetes Status: Chronic Current Visit: Yes Qualifiers: Diabetes mellitus type: type 1 Diabetes mellitus complication status: with kidney complications Diabetes mellitus complication detail: with chronic kidney disease Chronic kidney disease stage: stage 4 (severe) Qualified Code (s): E10.22 - Type 1 diabetes mellitus with diabetic chronic kidney disease; N18.4 - Chronic kidney disease, stage 4 (severe) (3) Chronic kidney disease, stage IV (severe) Problem details: stable to improved. Status: Chronic Current Visit: Yes (4) Bilateral pneumonia Status: Resolved Current Visit: Yes (5) Systolic CHF, acute on chronic Status: Acute Current Visit: Yes (6) Nephrotic syndrome Status: Acute Current Visit: Yes (7) Hypernatremia Status: Acute Current Visit: Yes (8) Debilitated Status: Acute Current Visit: Yes (9) Dysphagia Status: Acute Current Visit: Yes Hospitalist: Subjective Interval history: Mr Mantilla denies complaints today. He reported his face didn't hurt too much, but since I was there he has had further I and D by Dr Grajeda and is having some pain. He is tolerating tube feeds. Per nursing he is looking much better than when he came to tele from ICU a while ago. Exam - Constitutional Vitals: Period Temp Pulse Resp BP Sys/Post Pulse Ox Last 24 Hr 97.3 F-98.3 F 64-88 14-25 124-146/71-87 94-99 General appearance: no acute distress, over weight - Head Head exam: Present: other (dressing over draining abscess on left cheek.) - Respiratory Respiratory exam: Present: clear to auscultation bilaterally - Cardiovascular Cardiovascular exam: Present: regular rate and rhythm - GI/Abdominal GI/Abdominal exam: Present: normal bowel sounds, soft. Absent: tenderness - Extremities Exam Extremities exam: Present: edema (trace) Results - Labs CBC & BMP: 03/25/17 05:04 05/01/17 04:14 Lab Results: I have reviewed the past 24 hour labs Specialty Discharge - Follow Up or Referrals Follow up with: Alfred Malone MD [Physician] - 2 Weeks (Follow up with Dr. Malone in 2-3 weeks following discharge. EF 20%. )
--- NOTE | 2017-03-30 16:14 | Progress Note ---
Assessment and Plan - Time spent with patient Time spent with patient: Less than 30 minutes (1) Facial abscess Status: Acute Assessment and plan: I&D with packing and irrigation performed at bedside please see procedure note. I will continue to follow this patient and repacked and re-irrigate tomorrow cultures taken of the abscess 03/30/2017 awaiting abscess culture results if sensitive we will stop packing and allow this to heal we may even stop the packing as soon as tomorrow we will continue to follow this patient. Current Visit: Yes (2) Cellulitis and abscess of face Status: Acute Current Visit: Yes Family Medicine PN Sub Interval history: Wound packing removed with irrigation and replacement additional oral abscess noted incised and drained during today's visit as well packed with iodoform gauze awaiting culture results probable diphtheroid awaiting sensitivities though I suspect it would be sensitive to most antibiotics including hopefully penicillins cephalosporins and macrolides etc. Exam (Progress Note) - Constitutional Vitals: Period Temp Pulse Resp BP Sys/Post Pulse Ox Last 24 Hr 97.3 F-98.3 F 64-72 14-25 124-140/71-87 94-99 General appearance: normal weight, no acute distress - ENT ENT exam: Present: normal exam, normal external ear exam, other (Left buccal erythema with swelling and fluctuance consistent with abscess in the vestibular region drain today at bedside tolerated well continued packing awaiting final results on abscess) - Neck Neck exam: Present: normal inspection - Respiratory Respiratory exam: Present: other (No shortness of breath or tachypnea) - GI/Abdominal GI/Abdominal exam: Present: soft - Neurological Exam Neurological exam: Present: alert, oriented X3, CN II-XII intact - Psychiatric Psychiatric exam: Present: normal affect, normal mood - Skin Skin exam: Present: normal color, warm Results - Labs CBC & BMP: 03/25/17 05:04 03/30/17 04:14 Lab Results: I have reviewed the past 24 hour labs Specialty Discharge - Follow Up or Referrals Follow up with: Alfred Malone MD [Physician] - 2 Weeks (Follow up with Dr. Malone in 2-3 weeks following discharge. EF 20%. )
--- NOTE | 2017-03-30 23:00 | Nephrology Progress Note ---
Nephrology - PN: Subj Interval history: Left sided facial abscess drained since I last saw him. He is up in the chair. He is awake and alert. States he is thirsty. Exam (PN)-Nephrology - Vital Signs Vital signs: Period Temp Pulse Resp BP Sys/Post Pulse Ox Last 24 Hr 97.3 F-98.3 F 61-72 14-25 124-140/71-87 90-99 Exam: ENT: Surgical dressing on left jaw Cardiovascular: Regular rate and rhythm. No murmur rub or gallop Lungs: Clear Extremities: No edema - Lab 03/25/17 05:04 03/30/17 04:14 Most recent lab results ABG pH 7.348 (7.35-7.45) L 03/16/17 08:16 ABG pCO2 40.1 MM HG (35-48) 03/16/17 08:16 ABG pO2 92.6 MM HG (80-95) 03/16/17 08:16 ABG HCO3 21.5 MMOL/L (20-26) 03/16/17 08:16 ABG O2 Saturation 96.3 % (95-100) 03/16/17 08:16 Calcium 6.9 MG/DL (8.5-10.1) L 03/30/17 04:14 Phosphorus 4.2 MG/DL (2.5-4.9) 03/30/17 04:13 Magnesium 2.6 MG/DL (1.8-2.4) H 03/30/17 04:13 Assessment and Plan (1) Acute hypoxemic respiratory failure Status: Resolved Assessment and plan: 61-year-old man admitted with: * Bilateral pneumonia. Resolved * Chronic renal failure secondary to diabetic nephropathy. Baseline creatinine between 3 and 4. * Acute on chronic renal failure. Renal function back to baseline * Hypernatremia. Improving with hypotonic fluid * Nephrotic syndrome * Diabetes mellitus * Cardiomyopathy * Hypertension * Anorexia. PEG tube * Abscess, left face Current Visit: Yes (2) Bilateral pneumonia Status: Resolved Current Visit: Yes (3) Cardiomyopathy Status: Chronic Current Visit: Yes (4) Chronic kidney disease, stage IV (severe) Problem details: stable to improved. Status: Chronic Current Visit: Yes (5) Diabetes Status: Chronic Current Visit: Yes Qualifiers: Diabetes mellitus type: type 1 Diabetes mellitus complication status: with kidney complications Diabetes mellitus complication detail: with chronic kidney disease Chronic kidney disease stage: stage 4 (severe) Qualified Code (s): E10.22 - Type 1 diabetes mellitus with diabetic chronic kidney disease; N18.4 - Chronic kidney disease, stage 4 (severe) (6) Hypertension Status: Chronic Current Visit: Yes Specialty Discharge - Follow Up or Referrals Follow up with: Alfred Malone MD [Physician] - 2 Weeks (Follow up with Dr. Malone in 2-3 weeks following discharge. EF 20%. )
[2017-03-31] MEDS: INSULIN REGULAR 100 UNIT/ML SUBCUT SCH ×5 (00:12→23:56)
[2017-03-31] MEDS: ALBUTEROL/IPRATROPIUM 3 ML NEB RESP TX SCH ×6 (01:49→21:56)
[2017-03-31] MEDS: CLINDAMYCIN INJ 600 MG in PREMIX 1 EACH IV SCH ×2 (04:03→13:17)
[2017-03-31] MEDS: CYANOCOBALAMIN 500 MCG TABLET PO SCH (09:30)
[2017-03-31] MEDS: CARVEDILOL 12.5 MG TABLET PO SCH ×2 (09:30→20:14)
[2017-03-31] MEDS: ASPIRIN CHEW 81 MG TABLET PO SCH (09:30)
[2017-03-31] MEDS: LANSOPRAZOLE ODT 30 MG TABLET PER TUBE SCH (09:30)
[2017-03-31] MEDS: ISOSORBIDE MONONITRATE 30 MG TABLET PO SCH (09:30)
[2017-03-31] MEDS: FOLIC ACID 1 MG TABLET PO SCH (09:30)
[2017-03-31] MEDS: hydrALAZINE 25 MG TABLET PO SCH ×3 (09:30→20:14)
[2017-03-31] MEDS: MUPIROCIN 2% OINT 22 GM TUBE TOP SCH ×2 (11:39→20:14)
[2017-03-31] MEDS: LACTOBACILLUS RHAMNOSUS GG CAPSULE PO SCH ×2 (11:39→20:14)
[2017-03-31] MEDS: INSULIN NPH 100 UNIT/ML SUBCUT SCH ×2 (11:40→20:15)
[2017-03-31] MEDS: CHLORHEXIDINE 0.12% ORAL RINSE 60 ML BOTTLE SWISH/SPIT SCH ×2 (11:41→20:15)
[2017-03-31] MEDS: DESITIN 4OZ/NYSTATIN 15 GRAM MIXTURE PASTE TOP SCH ×2 (11:41→20:15)
--- NOTE | 2017-03-31 13:46 | Hospitalist Progress Note ---
Assessment and Plan (1) Cellulitis and abscess of face Status: Acute Assessment and plan: 1)ID- has completed antibiotics for pneumonia, now with local care and antibiotics for facial abscess. 2)dysphagia- has PEG now, tolerating tube feeds. 3)diabetes- controlled 4)hypernatremia- sodium coming down with increased free water. recheck sodium today. 5)CKD IV- stable 6)dispo- to rehab when approved. Current Visit: Yes (2) Diabetes Status: Chronic Current Visit: Yes Qualifiers: Diabetes mellitus type: type 1 Diabetes mellitus complication status: with kidney complications Diabetes mellitus complication detail: with chronic kidney disease Chronic kidney disease stage: stage 4 (severe) Qualified Code (s): E10.22 - Type 1 diabetes mellitus with diabetic chronic kidney disease; N18.4 - Chronic kidney disease, stage 4 (severe) (3) Chronic kidney disease, stage IV (severe) Problem details: stable to improved. Status: Chronic Current Visit: Yes (4) Bilateral pneumonia Status: Resolved Current Visit: Yes (5) Systolic CHF, acute on chronic Status: Acute Current Visit: Yes (6) Nephrotic syndrome Status: Acute Current Visit: Yes (7) Hypernatremia Status: Acute Current Visit: Yes (8) Debilitated Status: Acute Current Visit: Yes (9) Dysphagia Status: Acute Current Visit: Yes Hospitalist: Subjective Interval history: No complaints this morning. Still agreeable with plan for [facility]. It has been 7-8 days since he was referred to [facility] and we are waiting on his insurance to approve. Diptheroides sensitivities pending. Exam - Constitutional Vitals: Period Temp Pulse Resp BP Sys/Post Pulse Ox Last 24 Hr 97.4 F-98.6 F 61-72 16-20 116-150/61-96 86-100 General appearance: no acute distress, over weight - Head Head exam: Present: other (abscess I and D site draining, covered, swollen with some surrounding erythema, looks less swollen than yesterday.) - Respiratory Respiratory exam: Present: clear to auscultation bilaterally - Cardiovascular Cardiovascular exam: Present: regular rate and rhythm - GI/Abdominal GI/Abdominal exam: Present: normal bowel sounds, soft. Absent: tenderness - Extremities Exam Extremities exam: Absent: edema Results - Labs CBC & BMP: 03/25/17 05:04 03/30/17 04:14 Lab Results: I have reviewed the past 24 hour labs Specialty Discharge - Follow Up or Referrals Follow up with: Alfred Malone MD [Physician] - 2 Weeks (Follow up with Dr. Malone in 2-3 weeks following discharge. EF 20%. )
[2017-03-31 14:39] LABS: Calcium 7.4 MG/DL (8.5-10.1); Osmolality,Calculated 298.4 MOS/KG (273-304); Potassium 3.9 MMOL/L (3.5-5.1)
[2017-03-31] MEDS ORDERED: VANCOMYCIN INJ 1,500 MG in SODIUM CHLORIDE 0.9% 500 ML IV ONE (17:30)
--- NOTE | 2017-03-31 21:27 | Nephrology Progress Note ---
Nephrology - PN: Subj Interval history: No new symptoms today. No shortness of breath or chest pain Exam (PN)-Nephrology - Vital Signs Vital signs: Period Temp Pulse Resp BP Sys/Post Pulse Ox Last 24 Hr 97.9 F-98.6 F 66-72 16-20 104-150/59-96 86-100 Exam: ENT: Dressing to left jaw Cardiovascular: Regular rate and rhythm. No murmur rub or gallop Lungs: Clear Extremities: Trace edema - Lab 03/25/17 05:04 03/31/17 13:52 Most recent lab results ABG pH 7.348 (7.35-7.45) L 03/16/17 08:16 ABG pCO2 40.1 MM HG (35-48) 03/16/17 08:16 ABG pO2 92.6 MM HG (80-95) 03/16/17 08:16 ABG HCO3 21.5 MMOL/L (20-26) 03/16/17 08:16 ABG O2 Saturation 96.3 % (95-100) 03/16/17 08:16 Calcium 7.4 MG/DL (8.5-10.1) L 03/31/17 13:52 Phosphorus 4.2 MG/DL (2.5-4.9) 03/30/17 04:13 Magnesium 2.6 MG/DL (1.8-2.4) H 03/30/17 04:13 Assessment and Plan (1) Acute hypoxemic respiratory failure Status: Resolved Assessment and plan: 61-year-old man admitted with: * Bilateral pneumonia. Resolved * Chronic renal failure secondary to diabetic nephropathy. Baseline creatinine between 3 and 4. * Acute on chronic renal failure. Renal function back to baseline * Hypernatremia. Back to normal * Nephrotic syndrome * Diabetes mellitus * Cardiomyopathy * Hypertension * Anorexia. PEG tube * Abscess, left face Current Visit: Yes (2) Bilateral pneumonia Status: Resolved Current Visit: Yes (3) Cardiomyopathy Status: Chronic Current Visit: Yes (4) Chronic kidney disease, stage IV (severe) Problem details: stable to improved. Status: Chronic Current Visit: Yes (5) Diabetes Status: Chronic Current Visit: Yes Qualifiers: Diabetes mellitus type: type 1 Diabetes mellitus complication status: with kidney complications Diabetes mellitus complication detail: with chronic kidney disease Chronic kidney disease stage: stage 4 (severe) Qualified Code (s): E10.22 - Type 1 diabetes mellitus with diabetic chronic kidney disease; N18.4 - Chronic kidney disease, stage 4 (severe) (6) Hypertension Status: Chronic Current Visit: Yes Specialty Discharge - Follow Up or Referrals Follow up with: Alfred Maloen MD [Physician] - 2 Weeks (Follow up with Dr. Malone in 2-3 weeks following discharge. EF 20%. )
[2017-04-01] MEDS: ALBUTEROL/IPRATROPIUM 3 ML NEB RESP TX SCH ×3 (05:28→10:38)
[2017-04-01] MEDS: INSULIN REGULAR 100 UNIT/ML SUBCUT SCH ×2 (06:06→11:55)
[2017-04-01 06:15] LABS: Calcium 6.9 MG/DL (8.5-10.1); Osmolality,Calculated 295.3 MOS/KG (273-304); Potassium 4.1 MMOL/L (3.5-5.1)
--- NOTE | 2017-04-01 08:01 | Discharge Summary ---
<Robert Gauthier - Last Filed: 04/01/17 11:05> Hospital Course - Hospital Course Hospital Course: This is a very unfortunate 61 year old male that presented to the ED at [facility] as a lateral transfer from the [facility] with a chief compliant of respiratory failure. He was a rather impressive medical history of hypertension, Type II diabetes mellitus, chronic kidney disease Stage , and systolic congestive heart faliure with an EF of 40%. cardiomegly, and dyslipidemia. At the time of presentation to the [facility], he was found to be in extreme respiratory distress. He was placed on a non-rebreather mask; however his sats failed to improve. He was subsequently intubated and transferred to [facility] for continuation of care. The patient was evaluated at the time of admission and admitted under the hospitalist services for continuation of care. The patient was treated aggressively during the clinical encounter, and his condition improved. Today, we feel that he is appropriate for discharge to [facility] for continuation of care. Specialty Discharge - Follow Up or Referrals Follow up with: Your, PCP [Other] (in 2 weeks) Patrick Grajeda DO [Physician] - (04/06/17 9:30am) Alfred Malone MD [Physician] - 04/17/17 10:20 am (Follow up with Dr. Malone in 2-3 weeks following discharge. EF 20%. ) Chavo Williamson MD [Physician] - 1 Month (05/12/17 2:30pm for labwork then see MD afterwards.) Discharge Plan - Discharge Data Disposition: Disch/Xfer-Ip Rehab Fac - Discharge Medications New Carvedilol [Coreg] 12.5 mg PO BID tablet Chlorhexidine 0.12% Oral Rinse [Peridex] 15 ml SWISH/SPIT BID bottle Glucagon 1 mg IM PRN PRN #0 vial PRN Reason: Hypoglycemia w/o IV access HYDROcodone/ACETAMIN 5-325 [[place] 5-325] 1 tablet PO Q6H PRN #0 tablet PRN Reason: Pain Moderate (4-7) Insulin NPH [HumuLIN N] 16 unit SUBCUT BID unit Insulin Regular [HumuLIN R] See Protocol SUBCUT Q6HR unit Lactobacillus Rhamnosus GG [Culturelle] 1 capsule PO BID capsule Lansoprazole Odt Tab [Prevacid Solutab] 30 mg PER TUBE DAILY tablet Mupirocin 2% Oint [Bactroban 2% Oint] 1 applic TOP BID applic hydrALAZINE TAB [Apresoline Tab] 25 mg PO TID tablet Albuterol/Ipratropium Neb [Duoneb] 3 ml RESP TX RT Q4H Bisacodyl Tab [Dulcolax Tab] 10 mg PO DAILY PRN #0 tablet PRN Reason: Constipation Dextrose 50% [D50] 25 gm IV PRN PRN #0 vial PRN Reason: Hypoglycemia with IV access Isosorbide Mononitrate [Imdur] 30 mg PO DAILY tablet Vancomycin/0.9 % Sod Chloride [Vanco 1.5 gm/500 ml-0.9% NaCl] 1.5 gm IV Q48H #5 plast..bag Continue Simvastatin [Zocor] 10 mg PO BEDTIME Folic Acid Tab 1 mg PO DAILY Cyanocobalamin (Vitamin B-12) [Vitamin B-12] 1,000 mcg PO DAILY Aspirin EC Tab 81 mg PO DAILY tablet Discontinued Insulin Detemir [Levemir FlexPen] 25 unit SUBCUT BEDTIME Omeprazole [Prilosec] 20 mg PO DAILY Metoprolol Succinate Xl [Toprol Xl] 100 mg PO DAILY Furosemide Tab [Lasix Tab] 40 mg PO BID DIURETIC tablet hydrALAZINE TAB [Apresoline Tab] 50 mg PO TID tablet metOLazone [Zaroxolyn] 5 mg PO DAILY tablet Docusate Sodium Cap [Colace Cap] 100 mg PO BID - Follow Up or Referral Follow Up: Your, PCP [Other] (in 2 weeks) Patrick Grajeda DO [Physician] - (04/06/17 9:30am) Alfred Malone MD [Physician] - 04/17/17 10:20 am (Follow up with Dr. Malone in 2-3 weeks following discharge. EF 20%. ) Chavo Williamson MD [Physician] - 1 Month (05/12/17 2:30pm for labwork then see afterwards.) - Forms/Instructions Exam - Constitutional Vitals: Period Temp Pulse Resp BP Sys/Post Pulse Ox Last 24 Hr 97.3 F-98.8 F 64-75 16-20 95-146/57-83 86-100 Discharge Results Procedures and tests throughout hospitalization: Pending Orders 03/11/17 09:00 AFB Culture/Smears Stat Fungal Culture w/ Prep Stat 04/02/17 04:00 Basic Metabolic Panel MOTH Magnesium MOTH Prealbumin MOTH 04/06/17 04:00 Basic Metabolic Panel MOTH Magnesium MOTH Prealbumin MOTH Labs on day of discharge: Labs from last 24 hours 04/01/17 04/01/17 04/01/17 05:40 04:45 00:41 Sodium 141 Potassium 4.1 Chloride 107 Carbon Dioxide 24 Anion Gap 14.1 BUN 54 H Creatinine 3.70 H GFR Calculation 20 BUN/Creatinine Ratio 14.00 Glucose 103 POC Glucose 128 H 102 Calculated Osmolality 295.3 Calcium 6.9 L 03/31/17 03/31/17 03/31/17 23:45 17:25 13:52 Sodium 140 Potassium 3.9 Chloride 107 Carbon Dioxide 22 Anion Gap 14.9 BUN 53 H Creatinine 3.30 H GFR Calculation 23 BUN/Creatinine Ratio 16.00 Glucose 201 H POC Glucose 50 L 201 H Calculated Osmolality 298.4 Calcium 7.4 L 03/31/17 10:57 Sodium Potassium Chloride Carbon Dioxide Anion Gap BUN Creatinine GFR Calculation BUN/Creatinine Ratio Glucose POC Glucose 156 H Calculated Osmolality Calcium Preliminary micro results at discharge 03/11/17 09:00 Mycobacterial Culture - Preliminary Bronchial Pawan Lavage No AFB isolated at 3 weeks 03/11/17 09:00 Fungal Culture - Preliminary Bronchial Pawan Lavage Fina albicans DS: Provider Date of admission: 03/08/17 04:30 Primary care physician: Yue Suarez MD Attending physician on admission: Homer Colby Jr., MD Consults: 03/08/17 05:31 Consult to Pharmacy [CONS] Routine Reason for Pharmacy Consult: Dose/Manage Vancomycin 03/08/17 09:31 Consult to Physician [CONS] Routine Comment: ventilator case management rn Provider: Alfonso Quesada Consulting Provider Notified: Yes When should Consulting Provider be notified: Now Consult to Specialist Group: Pulmonology When should Consulting Provider be notified: Now Person Notified: Dr. Quesada Date Notified: 03/08/17 Time Notified: 09:35 Consult Notification Comment: I'll see shortly. 03/08/17 09:53 Consult to Physician [CONS] Routine Comment: ventilator case management rn Provider: Alfonso Quesada When should Consulting Provider be notified: Now 03/08/17 10:19 Consult to Pharmacy [CONS] Routine Reason for Pharmacy Consult: Adjust Meds Renal Funct 03/08/17 10:37 Consult to Dietitian [CONS] Routine Reason for Dietitian: Dietary Consult 03/08/17 11:19 Consult to Physical Therapy [CONS] Routine Reason for Physical Therapy: Evaluate and Treat 03/08/17 16:45 Consult to Pastoral Services [CONS] Routine Comment: Pastoral Screen: Request Manager Department Visit Pastoral Screen Source of Request: Family 03/09/17 07:32 Consult to Physician [CONS] Routine Comment: Consulting Provider: Chavo Williamson Consulting Provider Notified: Yes When should Consulting Provider be notified: Now Consult to Specialist Group: Nephrology Person Notified: RIKI Date Notified: 03/09/17 Time Notified: 10:35 03/09/17 10:29 Consult to Physician [CONS] Routine Comment: EF 20% on echo Consulting Provider: Cardiology - [facility] Consulting Provider Notified: Yes Consult to Specialist Group: Cardiology Person Notified: OTTONIEL Date Notified: 03/09/17 Time Notified: 10:40 03/10/17 07:26 Consult to Dietitian [CONS] Routine Reason for Dietitian: TF-Initiate/Manage 03/23/17 19:18 Consult to Physical Therapy [CONS] Routine Reason for Physical Therapy: Evaluate and Treat 03/24/17 13:04 Consult to Physician [CONS] Routine Comment: dysphagia. Failed MBS x 2. Needs PEG Consulting Provider: Alfonso Newman Consulting Provider Notified: No When should Consulting Provider be notified: Now Consult to Specialist Group: Gastroenterology When should Consulting Provider be notified: Now Consult Notification Comment: LEFT MESSAGE AT 1335 FOR CONSULT 03/24/17 14:03 Consult to Case Mgmt/Social Srvs [CONS] Routine Reason for Case Mgmt/Social Srvs: Discharge Planning Rehab 03/27/17 11:24 Consult to Physician [CONS] Routine Comment: left facial abscess. Please eval and treat Consulting Provider: Consult to Specialist Group: Surgery When should Consulting Provider be notified: Now 03/27/17 17:29 Consult to Physician [CONS] Routine Comment: facial abscess Consulting Provider: Consult to Specialist Group: ENT When should Consulting Provider be notified: Now Discharging clinician: Robert Gauthier CNP <MckenneyObed novoasey - Last Filed: 04/01/17 11:39> Hospital Course - Hospital Course Hospital Course: I have seen and examined Mr Jose Rafael and completed all but the narrative summary above. He had a protracted course on the vent from sepsis, pneumonia and associated repiratory failure and also developed an abscess in his left cheek that has required repeated I and D and is slow to resolve. Culture grew Staph epi that is thought to be the infecting agent as well as diptheroids. He is otherwise doing well now and is ready to have his critical care myopathy addressed at [facility] today. His lungs are clear and he continues to tolerate the tube feeding diet. He has had his PEG for a week or so- it was placed because after extubation he repeatedly failed swallow evals. He will continue Vanc at 1500 mg q48h with a trough at 1700 tomorrow. Pharmacy can continue to dose the Vanc. He will need to see Dr Grajeda in his clinic on Thursday, and continue the dressing changes he has ordered in the meantime. I spent 40 minutes in the discharge of this patient on care coordination, medicine reconciliation and documentation. - Time spent with patient Time with patient DS: Greater than 30 minutes Diagnosis - Discharge Diagnosis (1) Cellulitis and abscess of face Status: Acute (2) Diabetes Status: Chronic (3) Chronic kidney disease, stage IV (severe) Status: Chronic (4) Bilateral pneumonia Status: Resolved (5) Systolic CHF, acute on chronic Status: Resolved (6) Nephrotic syndrome Status: Chronic (7) Hypernatremia Status: Resolved (8) Debilitated Status: Chronic (9) Dysphagia Status: Chronic Discharge Plan - Discharge Data Condition at Discharge: Stable Discharge Diet: other (tube feed) Activity: as per physical therapy Exam - Constitutional General appearance: normal weight, no acute distress - Head Head exam: Present: other (abscess left cheek, draining, withsome erythema and induration) - Eye Eye exam: Present: EOMI. Absent: scleral icterus - Respiratory Respiratory exam: Present: clear to auscultation bilaterally - Cardiovascular Cardiovascular exam: Present: regular rate and rhythm - GI/Abdominal GI/Abdominal exam: Present: normal bowel sounds, soft. Absent: tenderness - Neurological Exam Neurological exam: Present: alert, oriented X3
[2017-04-01] MEDS: ASPIRIN CHEW 81 MG TABLET PO SCH (09:19)
[2017-04-01] MEDS: MUPIROCIN 2% OINT 22 GM TUBE TOP SCH (09:19)
[2017-04-01] MEDS: hydrALAZINE 25 MG TABLET PO SCH (09:19)
[2017-04-01] MEDS: CARVEDILOL 12.5 MG TABLET PO SCH (09:20)
[2017-04-01] MEDS: FOLIC ACID 1 MG TABLET PO SCH (09:20)
[2017-04-01] MEDS: LACTOBACILLUS RHAMNOSUS GG CAPSULE PO SCH (09:20)
[2017-04-01] MEDS: CHLORHEXIDINE 0.12% ORAL RINSE 60 ML BOTTLE SWISH/SPIT SCH (09:20)
[2017-04-01] MEDS: ISOSORBIDE MONONITRATE 30 MG TABLET PO SCH (09:20)
[2017-04-01] MEDS: CYANOCOBALAMIN 500 MCG TABLET PO SCH (09:21)
[2017-04-01] MEDS: LANSOPRAZOLE ODT 30 MG TABLET PER TUBE SCH (09:21)
[2017-04-01] MEDS: DESITIN 4OZ/NYSTATIN 15 GRAM MIXTURE PASTE TOP SCH (09:21)
[2017-04-01] MEDS: INSULIN NPH 100 UNIT/ML SUBCUT SCH (09:22)
[2017-04-01 12:22] VITALS: BP 128/81
--- NOTE | 2017-04-01 14:35 | Nephrology Progress Note ---
Nephrology - PN: Subj Interval history: No new symptoms today. Denies shortness of breath Exam (PN)-Nephrology - Vital Signs Vital signs: Period Temp Pulse Resp BP Sys/Post Pulse Ox Last 24 Hr 97.3 F-98.8 F 64-75 16-20 95-146/57-82 92-99 Exam: ENT: Normal Cardiovascular: Regular rate and rhythm. No murmur rub or gallop Lungs: Clear Extremities: No edema - Lab 03/25/17 05:04 04/01/17 04:45 Most recent lab results ABG pH 7.348 (7.35-7.45) L 03/16/17 08:16 ABG pCO2 40.1 MM HG (35-48) 03/16/17 08:16 ABG pO2 92.6 MM HG (80-95) 03/16/17 08:16 ABG HCO3 21.5 MMOL/L (20-26) 03/16/17 08:16 ABG O2 Saturation 96.3 % (95-100) 03/16/17 08:16 Calcium 6.9 MG/DL (8.5-10.1) L 04/01/17 04:45 Phosphorus 4.2 MG/DL (2.5-4.9) 03/30/17 04:13 Magnesium 2.6 MG/DL (1.8-2.4) H 03/30/17 04:13 Assessment and Plan (1) Cardiomyopathy Status: Chronic (2) Chronic kidney disease, stage IV (severe) Status: Chronic Assessment and plan: Renal function is stable. Hypernatremia resolved. Continue current tube feedings. Plans for discharge to rehab noted (3) Diabetes Status: Chronic Qualifiers: Diabetes mellitus type: type 1 Diabetes mellitus complication status: with kidney complications Diabetes mellitus complication detail: with chronic kidney disease Chronic kidney disease stage: stage 4 (severe) Qualified Code (s): E10.22 - Type 1 diabetes mellitus with diabetic chronic kidney disease; N18.4 - Chronic kidney disease, stage 4 (severe) (4) Hypertension Status: Chronic Specialty Discharge - Follow Up or Referrals Follow up with: Your, PCP [Other] (in 2 weeks) Patrick Grajeda DO [Physician] - (04/06/17 9:30am) Alfred Malone MD [Physician] - 04/17/17 10:20 am (Follow up with Dr. Malone in 2-3 weeks following discharge. EF 20%. ) Chavo Williamson MD [Physician] - 1 Month (05/12/17 2:30pm for labwork then see MD afterwards.)
== END 2017-04-01 13:25 | DRG 853 ==
LOC: EDUNIT# → EDBD → N.ED 03:24 → N.EDINP 04:30 → SUATTDRO 04:30 → N.ICU 08:45 → N.TELEN 03-16 19:17
PROVIDERS: ADMIT Internal Medicine Nephrology; ATTEND Internal Medicine
PROC: EGDWPEG (ICD-10-PCS; 2017-03-27 11:35)

== ENCOUNTER 2017-04-09 20:15 | Inpatient (IN) ==
[~2017-04-09 20:15] MED LIST: CALCIUM CHLORIDE 1,000 MG/10 ML SYRINGE IV ONE; EPINEPHrine 1 MG/ML VIAL ONE; SODIUM BICARBONATE 50 MEQ/50 ML SYRINGE IV ONE
[2017-04-09] MEDS ORDERED: EPINEPHrine 1 MG/10 ML SYRINGE IV STA ×3 (20:17→20:45)
[2017-04-09] MEDS ORDERED: CALCIUM CHLORIDE 1,000 MG/10 ML SYRINGE IV STA ×2 (20:18→20:49)
[2017-04-09] MEDS ORDERED: SODIUM CHLORIDE 0.9% 1,000 ML IV STA ×2 (20:20→21:45)
[2017-04-09] MEDS ORDERED: SODIUM BICARBONATE 50 MEQ/50 ML VIAL IV STA ×3 (20:21→20:52)
[2017-04-09 20:44] LABS: ABG Base Excess -6.8 MMOL/L (-2.5-2.5); ABG HCO3 18.8 MMOL/L (20-26); ABG TCO2 22.5 MMOL/L (23-27)
[2017-04-09 20:47] LABS: ABG PCO2 70.5 MM HG (35-48); ABG PH 7.129 (7.35-7.45)
--- NOTE | 2017-04-09 20:59 | XRay Report ---
Referring Physician: Ryley Terrazas Exam: XR chest 1V portable Date: April 09, 2017 at 8:15 PM Reason: Endotracheal tube placement Comparison: Chest 1 view March 18, 2017 Findings: An endotracheal tube is in place with its distal tip at the level of the sternoclavicular junctions, projecting 3 cm above the domenic. A feeding tube is seen extending into the gastric body and beyond the [id number]. Contrast is noted within the stomach. The cardiac silhouette is again enlarged, and there is calcified plaque at the thoracic aorta. Mild scattered opacities are seen within both lungs, mainly at the lung bases. This is most consistent with pulmonary edema and atelectasis. No pneumothorax is identified, but there may be minimal bilateral pleural fluid. The osseous structures appear stable. Impression: 1. Tubes and lines as above. 2. Cardiomegaly. 3. There are mild scattered opacities within both lungs, mainly at the lung bases. This likely represents pulmonary edema and atelectasis. Pneumonia is not excluded. PROCEDURE INTERPRETED AT [facility] DEPARTMENT OF RADIOLOGY Final Report Signed by: Dr. Ronak Nielson
[2017-04-09 21:25] LABS: Apearance,Urine CLOUDY (Clear); Bilirubin,Urine Negative (Negative); Blood, Urine Negative (Negative); Glucose,Urine (UA) 50 mg/dL (Negative); Ketones,Urine Negative (Negative); Nitrite,Urine Negative (Negative); Protein,Urine 100 MG/DL; RBC,Urine 2 /HPF (0-4); Sperm,Urine Few /HPF (Negative); Urine Color Red (Yellow); Urine Specific Gravity 1.009 (1.001-1.035); Urine Urobilinogen < 2.0 EU/DL (0.2-1.0); WBC,Urine 6 /HPF (0-6)
[2017-04-09 21:35] LABS: Basophils # 0.1 10*3/uL (0.0-0.2); Basophils % 0.6 % (0.0-0.8); Eosinophils # 0.1 10*3/uL (0.0-0.87); Eosinophils % 1.1 % (0.00-10.9); Hematocrit 30.9 VOL% (42.0-52.0); Hemoglobin 9.4 GM/DL (14.0-18.0); Immature Granulocytes % 1.3 %; Immature Granulocytes Absolute 0.11 #; Lymphocytes # 3.6 10*3/uL (1.4-4.0); Lymphocytes % 40.9 % (21.2-54.2); Mean Corpuscular HGB Conc 30.4 GM/DL (32-36); Mean Corpuscular Hemoglobin 29 PG (27-34); Mean Corpuscular Volume 95.4 FL (87-102); Mean Platelet Volume 11.7 FL (9.6-12.0); Monocytes # 0.9 10*3/uL (0.11-0.8); Monocytes % 10.6 % (1.7-12.7); NRBC # 0.07 10*3/uL; Neutrophils % 45.5 % (38.7-73.9); Platelet Count 318 T/CUMM (130-400); Red Blood Count 3.24 MC/CUMM (3.8-5.5); Red Cell Distribution Width 17.8 % (9.3-17.3); White Blood Count 8.8 T/CUMM (4-12)
[2017-04-09 21:40] LABS: INR 1.2; PT Patient Result 12.9 SECS
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
[2017-04-09 22:07] LABS: Albumin 2.5 G/DL (3.4-5.0); Bilirubin,Total 0.5 MG/DL (0.2-1.0); CKMB % 4.3 %; Calcium 7.7 MG/DL (8.5-10.1); Osmolality,Calculated 287.9 MOS/KG (273-304); Potassium 4.1 MMOL/L (3.5-5.1); Total Protein 7.5 G/DL (6.4-8.3)
[2017-04-09 22:08] LABS: Troponin I Only 0.05 NG/ML (0.00-0.045)
[2017-04-09] MEDS ORDERED: VECURONIUM 10 MG VIAL IV ONE (23:06)
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
[2017-04-09] MEDS ORDERED: VECURONIUM 10 MG VIAL IV STA (23:21)
[2017-04-09] MEDS ORDERED: PROPOFOL 1,000 MG/100 ML BOTTLE IV ONE (23:25)
[2017-04-09] MEDS: PROPOFOL 1,000 MG/100 ML BOTTLE IV SCH (23:38)
[2017-04-09] MEDS ORDERED: MAGNESIUM SULF RIDER 2 GM in PREMIX 1 EACH IV PRN (23:44)
[2017-04-09] MEDS ORDERED: MAGNESIUM SULF RIDER 4 GM in PREMIX 1 EACH IV PRN (23:44)
[2017-04-09] MEDS ORDERED: [UNRECOGNIZED DRUG - OTHER] IV SCH (23:45)
[2017-04-09] MEDS ORDERED: SOD CHLORIDE IV SCH (23:45)
[2017-04-09] MEDS ORDERED: VANCOMYCIN IV SCH (23:45)
[2017-04-10 00:40] LABS: ABG Base Excess -0.6 MMOL/L (-2.5-2.5); ABG HCO3 23.9 MMOL/L (20-26); ABG PCO2 30.6 MM HG (35-48); ABG PH 7.473 (7.35-7.45); ABG TCO2 20.7 MMOL/L (23-27); Allen Test Positive; Pt O2 Delivery Device Ventilator
[2017-04-10] MEDS ORDERED: DEXTROSE 50% 25 GM/50 ML VIAL IV PRN (01:43)
[2017-04-10] MEDS ORDERED: GLUCAGON 1 MG VIAL IM PRN (01:43)
[2017-04-10] MEDS ORDERED: fentaNYL 100 MCG/2 ML VIAL IV PRN (01:52)
[2017-04-10] MEDS ORDERED: LORazepam 2 MG/1 ML VIAL IV PRN (01:52)
[2017-04-10] MEDS ORDERED: INSULIN REGULAR 100 UNIT/ML SUBCUT SCH (02:00)
[2017-04-10 02:18] LABS: Basophils % 0.1 % (0.0-0.8); Eosinophils % 0.1 % (0.00-10.9); Hematocrit 27.8 VOL% (42.0-52.0); Hemoglobin 9.1 GM/DL (14.0-18.0); Immature Granulocytes % 0.6 %; Immature Granulocytes Absolute 0.06 #; Lymphocytes # 0.7 10*3/uL (1.4-4.0); Lymphocytes % 7.6 % (21.2-54.2); Mean Corpuscular HGB Conc 32.7 GM/DL (32-36); Mean Corpuscular Hemoglobin 29 PG (27-34); Mean Corpuscular Volume 88.8 FL (87-102); Mean Platelet Volume 10.6 FL (9.6-12.0); Monocytes # 0.8 10*3/uL (0.11-0.8); Monocytes % 8.1 % (1.7-12.7); NRBC # 0.02 10*3/uL; Neutrophils # 8.1 10*3/uL (1.4-7.4); Neutrophils % 83.5 % (38.7-73.9); Platelet Count 342 T/CUMM (130-400); Red Blood Count 3.13 MC/CUMM (3.8-5.5); Red Cell Distribution Width 17.4 % (9.3-17.3); White Blood Count 9.7 T/CUMM (4-12)
[2017-04-10] MEDS: PIPERACILLIN/TAZOBACTAM 3,375 MG in SODIUM CHLORIDE 0.9% 100 ML IV SCH ×2 (02:21→13:51)
[2017-04-10] MEDS: fentaNYL INJ 1,250 MCG in SODIUM CHLORIDE 0.9% 225 ML IV SCH (02:26)
[2017-04-10 02:39] LABS: INR 1.3; Partial Thromboplastin Time 36.9 SECS (0-40)
[2017-04-10] MEDS: LORazepam INJ 40 MG in DEXTROSE 5% 30 ML IV SCH (02:41)
[2017-04-10] MEDS: CISATRACURIUM 200 MG in SODIUM CHLORIDE 0.9% 100 ML IV SCH ×2 (02:43→18:26)
[2017-04-10 02:53] LABS: CKMB % 3.8 %; Calcium 8.2 MG/DL (8.5-10.1); Magnesium 3.6 MG/DL (1.8-2.4); Osmolality,Calculated 292.7 MOS/KG (273-304); Phosphorous 4.8 MG/DL (2.5-4.9); Potassium 4.4 MMOL/L (3.5-5.1); Troponin I Only 0.123 NG/ML (0.00-0.045)
[2017-04-10] MEDS: ALBUTEROL/IPRATROPIUM 3 ML NEB RESP TX SCH ×4 (03:26→20:17)
[2017-04-10 03:27] LABS: ABG Base Excess -1.7 MMOL/L (-2.5-2.5); ABG PCO2 31.8 MM HG (35-48); ABG PH 7.443 (7.35-7.45)
[2017-04-10] MEDS: INSULIN REGULAR 100 UNIT/ML IV SCH ×5 (04:57→20:59)
[2017-04-10] MEDS ORDERED: VANCOMYCIN INJ 1,500 MG in SODIUM CHLORIDE 0.9% 500 ML IV SCH (05:00)
[2017-04-10] MEDS: PROPOFOL 1,000 MG/100 ML BOTTLE IV SCH ×3 (05:58→19:41)
--- NOTE | 2017-04-10 07:04 | XRay Report ---
XR chest 1V portable Indication: Central line placement Comparison: Chest x-ray dated April 09, 2017 Technique: Single frontal view of the chest Findings: Endotracheal tube tip approximately 1.8 cm above the domenic. Tip of right-sided central venous catheter projects over the high right atrium. Cardiomediastinal silhouette appears grossly unchanged. Heart remains prominent. Continued small left pleural fluid and left basilar atelectasis/consolidation. Interval increased atelectasis and/or pleural fluid within the right lung base. Osseous and surrounding soft tissue structures appear grossly unchanged. IMPRESSION: As above. PROCEDURE INTERPRETED AT [facility] DEPARTMENT OF RADIOLOGY Final Report Signed by: Dr Austin Galindo
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
[2017-04-10 07:51] LABS: Eosinophils % 0.1 % (0.00-10.9); Hematocrit 25.9 VOL% (42.0-52.0); Hemoglobin 8.4 GM/DL (14.0-18.0); Immature Granulocytes % 0.5 %; Immature Granulocytes Absolute 0.04 #; Lymphocytes # 0.6 10*3/uL (1.4-4.0); Lymphocytes % 7.8 % (21.2-54.2); Mean Corpuscular HGB Conc 32.4 GM/DL (32-36); Mean Corpuscular Hemoglobin 29 PG (27-34); Mean Corpuscular Volume 87.8 FL (87-102); Mean Platelet Volume 10.6 FL (9.6-12.0); Monocytes # 0.2 10*3/uL (0.11-0.8); Monocytes % 2.9 % (1.7-12.7); NRBC # 0.03 10*3/uL; Neutrophils # 6.7 10*3/uL (1.4-7.4); Neutrophils % 88.7 % (38.7-73.9); Platelet Count 313 T/CUMM (130-400); Red Blood Count 2.95 MC/CUMM (3.8-5.5); Red Cell Distribution Width 17.5 % (9.3-17.3); White Blood Count 7.6 T/CUMM (4-12)
[2017-04-10 08:02] LABS: INR 1.4; PT Patient Result 15.3 SECS; Partial Thromboplastin Time 38.2 SECS (0-40)
--- NOTE | 2017-04-10 08:06 | Ultrasound Report ---
US venous doppler LE BI Indication: Nephrotic, leg edema, acute respiratory failure. Comparison: No relevant comparison. Technique: Grayscale, spectral, and color Doppler interrogation of the bilateral lower extremity veins was performed. Augmentation and compression was performed. Findings: Grayscale, color Doppler, and pulsed Doppler evaluation of the veins of the bilateral lower extremity demonstrates no evidence of deep venous thrombosis. Please note that bilateral distal superficial femoral veins not visualized secondary to hypothermic device. IMPRESSION: No evidence of deep venous thrombosis in either lower extremity. PROCEDURE INTERPRETED AT [facility] DEPARTMENT OF RADIOLOGY Final Report Signed by: Dr Austin Galindo
[2017-04-10 08:07] LABS: Lactic Acid 1.2 MMOL/L (0.4-2.0)
[2017-04-10 08:13] LABS: ABG Base Excess -1.4 MMOL/L (-2.5-2.5); ABG HCO3 23.2 MMOL/L (20-26); ABG PCO2 28.6 MM HG (35-48); ABG PH 7.481 (7.35-7.45); ABG TCO2 19.6 MMOL/L (23-27)
[2017-04-10 08:34] LABS: CKMB % 4.5 %; Calcium 7.7 MG/DL (8.5-10.1); Magnesium 3.5 MG/DL (1.8-2.4); Osmolality,Calculated 297.4 MOS/KG (273-304); Potassium 4.1 MMOL/L (3.5-5.1)
[2017-04-10 08:36] LABS: Troponin I Only 0.178 NG/ML (0.00-0.045)
[2017-04-10] MEDS ORDERED: ENOXAPARIN 30 MG/0.3 ML SYRINGE SUBCUT SCH (09:00)
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
[2017-04-10] MEDS: MINERAL OIL/PETROLATUM OPH OINT 3.5 GM TUBE BOTH EYES SCH ×3 (09:40→21:00)
--- NOTE | 2017-04-10 10:18 | EKG Report ---
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
--- NOTE | 2017-04-10 10:32 | Nuclear Medicine Report ---
NM lung scan vent and per Indication: Cardiopulmonary arrest. Elevated creatinine, cannot perform CT PE study. VENTILATION/PERFUSION LUNG SCAN: Planar imaging of the lungs was obtained after the IV administration of 5 mCi technetium 99m labeled MAA, and aerosol administration of 40 mCi technetium 99m labeled DTPA. Comparison: None. 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 When reviewing the chest x-ray, pulmonary opacities are present in these regions. Impression: Intermediate probability VQ scan, triple matched defects chest x-ray, ventilation and perfusion as described. PROCEDURE INTERPRETED AT [facility] DEPARTMENT OF RADIOLOGY Final Report Signed by: Alfred Graham M.D.
[2017-04-10] MEDS: ASPIRIN EC 81 MG TABLET PO SCH (10:39)
[2017-04-10] MEDS: FUROSEMIDE 40 MG/4 ML VIAL IV SCH ×2 (10:39→17:45)
[2017-04-10] MEDS: PANTOPRAZOLE 40 MG VIAL IV SCH (10:39)
--- NOTE | 2017-04-10 10:56 | Hospitalist Progress Note ---
Assessment and Plan - Time spent with patient Time spent with patient: Greater than 30 minutes (1) Sudden cardiac Status: Acute Assessment and plan: Pulmonary and cardiology following. [employer] protocols started. Continue epinephrine drip. Supportive measures and ventilatory support. Current Visit: Yes (2) Congestive heart failure Status: Chronic Assessment and plan: Echo from 03/08/2017 shows EF 20% and grade 3 diastolic dysfunction with global hypokinesis. Current Visit: Yes Qualifiers: Congestive heart failure type: unspecified congestive heart failure type Congestive heart failure chronicity: acute on chronic Qualified Code(s): I50.9 - Heart failure, unspecified (3) Diabetes Status: Chronic Current Visit: No Qualifiers: Diabetes mellitus type: type 1 Diabetes mellitus complication status: with kidney complications Diabetes mellitus complication detail: with chronic kidney disease Chronic kidney disease stage: stage 4 (severe) Qualified Code (s): E10.22 - Type 1 diabetes mellitus with diabetic chronic kidney disease; N18.4 - Chronic kidney disease, stage 4 (severe) (4) Cellulitis Status: Acute Assessment and plan: Receiving Zosyn. Current Visit: No Qualifiers: Site of cellulitis: face Qualified Code(s): L03.211 - Cellulitis of face (5) Hypertension Status: Chronic Current Visit: No Qualifiers: Hypertension type: essential hypertension Qualified Code(s): I10 - Essential (primary) hypertension (6) Acute hypoxemic respiratory failure Status: Acute Current Visit: No (7) Systolic CHF, acute on chronic Status: Acute Current Visit: No (8) Nephrotic syndrome Status: Chronic Current Visit: No (9) Acute respiratory failure Status: Acute Current Visit: Yes Qualifiers: Respiratory failure complication: hypoxia Qualified Code(s): J96.01 - Acute respiratory failure with hypoxia Hospitalist: Subjective Interval history: Patient seen and examined. Chart reviewed. Patient was admitted overnight to the emergency department after surviving cardiac arrest at [facility]. According to the chart and nursing reports the patient had a significant downtime prior to regaining spontaneous rhythm. He is currently undergoing cooling measures/protocols via [employer]. Neurological examination is not possible at this time due to paralytics and sedation. Case was discussed with Dr. Bhakta at the bedside. Patient has a history of cardiomyopathy and chronic kidney disease but was otherwise doing well at rehab yesterday. He is currently on an epinephrine drip. Exam - Constitutional Vitals: Period Temp Pulse Resp BP Sys/Post Pulse Ox Last 24 Hr 89.6 F-94.6 F 49-78 12-15 136-167/74-98 98-100 Exam: Constitutional System: Mild distress. No tremulousness. Head: Normocephalic, atraumatic. Ears, Nose and Throat System: No pain or tenderness. No epistaxis or discharge Eyes System: Pupils equal, round, and reactive. Extraocular muscles intact. Neck: Supple, without adenopathy, No jugular venous distention. No thyromegaly, neck mass, or prior surgery apparent. Respiratory System: Chest clear to auscultation. Cardiovascular System: Heart with regular rate and rhythm. No murmur. GI System: Abdomen soft, nontender. Normo active bowel sounds present. Musculoskeletal System: limbs with pedal edema. Full distal pulses. Neurological System: Unable to assess Psychiatric System: Unable to assess Results - Labs CBC & BMP: 04/10/17 07:35 04/10/17 07:35 Lab Results: I have reviewed the past 24 hour labs - Diagnostic Findings Procedure: Chest x-ray: image reviewed by me, report reviewed by me, Ultrasound : image reviewed by me, report reviewed by me
--- NOTE | 2017-04-10 11:21 | Event Note ---
Perfusion lung scan is a triple match and intermediate probability. I have started on a heparin infusion for suspected pulmonary embolism. Would be difficult to prove for sure as patient would not tolerate a CT PE protocol.
[2017-04-10] MEDS: HEPARIN DRIP 25,000 UNITS/500 ML PREMIX IV SCH (11:28)
[2017-04-10 13:23] LABS: Basophils % 0.1 % (0.0-0.8); Eosinophils # 0.1 10*3/uL (0.0-0.87); Eosinophils % 1.4 % (0.00-10.9); Hematocrit 26.2 VOL% (42.0-52.0); Hemoglobin 8.8 GM/DL (14.0-18.0); Immature Granulocytes % 0.4 %; Immature Granulocytes Absolute 0.04 #; Lymphocytes # 0.3 10*3/uL (1.4-4.0); Lymphocytes % 3.1 % (21.2-54.2); Mean Corpuscular HGB Conc 33.6 GM/DL (32-36); Mean Corpuscular Hemoglobin 29 PG (27-34); Mean Corpuscular Volume 86.8 FL (87-102); Mean Platelet Volume 10.9 FL (9.6-12.0); Monocytes # 0.4 10*3/uL (0.11-0.8); Monocytes % 3.4 % (1.7-12.7); NRBC # 0.02 10*3/uL; Neutrophils # 9.3 10*3/uL (1.4-7.4); Neutrophils % 91.6 % (38.7-73.9); Platelet Count 314 T/CUMM (130-400); Red Blood Count 3.02 MC/CUMM (3.8-5.5); Red Cell Distribution Width 17.5 % (9.3-17.3); White Blood Count 10.2 T/CUMM (4-12)
[2017-04-10 13:43] LABS: INR 1.5; PT Patient Result 16.1 SECS
[2017-04-10 13:47] LABS: Partial Thromboplastin Time 82.5 SECS (0-40)
[2017-04-10 13:48] LABS: Lactic Acid 1.2 MMOL/L (0.4-2.0)
--- NOTE | 2017-04-10 13:51 | Nephrology Progress Note ---
Nephrology - PN: Subj Interval history: He suffered a cardiopulmonary arrest last night. He required CPR and is now on the ventilator. When I saw him last evening he was awake and alert had no shortness of breath while lying flat. He participated in physical therapy yesterday without problems. His chronic renal failure was near his baseline. He had developed more lower extremity edema and was started on diuretics yesterday. Exam (PN)-Nephrology - Vital Signs Vital signs: Period Temp Pulse Resp BP Sys/Post Pulse Ox Last 24 Hr 89.6 F-94.6 F 48-78 12-20 126-167/67-98 98-100 Exam: Gen.: Sedated on ventilator ENT: Pupils equal round reactive to light. Neck: Supple. No JVD or bruit. Cardiovascular: Regular rate and rhythm. No murmur rub or gallop Lungs: Clear Abdomen: Soft. Nontender. Positive bowel sounds. No organomegaly Extremities: 2+ edema - Lab 04/10/17 13:06 04/10/17 07:35 Most recent lab results ABG pH 7.481 (7.35-7.45) H 04/10/17 08:10 ABG pCO2 28.6 MM HG (35-48) L 04/10/17 08:10 ABG pO2 119.0 MM HG (80-95) H 04/10/17 08:10 ABG HCO3 23.2 MMOL/L (20-26) 04/10/17 08:10 ABG O2 Saturation 99.0 % (95-100) 04/10/17 08:10 Calcium 7.7 MG/DL (8.5-10.1) L 04/10/17 07:35 Phosphorus 4.8 MG/DL (2.5-4.9) 04/10/17 02:12 Magnesium 3.5 MG/DL (1.8-2.4) H 04/10/17 07:35 Assessment and Plan (1) Chronic kidney disease, stage IV (severe) Problem details: stable to improved. Status: Chronic Assessment and plan: 61-year-old man admitted with: * CRF stage IV. Baseline creatinine mid threes * ARF on CRF. This is due to hypotension suffered during arrest. * Nephrotic syndrome * Diabetes mellitus * Cardiomyopathy * Cardiac arrest. Although he has significant peripheral edema, his albumin is quite low due to nephrotic syndrome. He was not short of breath last p.m. he does not have significant pulmonary edema. Current Visit: Yes (2) Acute respiratory failure Status: Acute Current Visit: Yes Qualifiers: Respiratory failure complication: hypoxia Qualified Code(s): J96.01 - Acute respiratory failure with hypoxia (3) Cardiac arrest Status: Acute Current Visit: Yes (4) Cellulitis and abscess of face Status: Acute Current Visit: No (5) Cardiomyopathy Status: Chronic Current Visit: No (6) Diabetes Status: Chronic Current Visit: No Qualifiers: Diabetes mellitus type: type 1 Diabetes mellitus complication status: with kidney complications Diabetes mellitus complication detail: with chronic kidney disease Chronic kidney disease stage: stage 4 (severe) Qualified Code (s): E10.22 - Type 1 diabetes mellitus with diabetic chronic kidney disease; N18.4 - Chronic kidney disease, stage 4 (severe) (7) Nephrotic syndrome Status: Chronic Current Visit: No
[2017-04-10 14:04] LABS: CKMB % 4.7 %; Calcium 7.5 MG/DL (8.5-10.1); Magnesium 3.3 MG/DL (1.8-2.4); Osmolality,Calculated 296.4 MOS/KG (273-304); Potassium 3.9 MMOL/L (3.5-5.1)
[2017-04-10 14:05] LABS: Troponin I Only 0.212 NG/ML (0.00-0.045)
[2017-04-10 14:17] LABS: Apearance,Urine CLEAR (Clear); Bacteria,Urine Occasional /HPF (Few); Bilirubin,Urine Negative (Negative); Blood, Urine Small mg/dL (Negative); Glucose,Urine (UA) 150 mg/dL (Negative); Ketones,Urine 5 mg/dL (Negative); Mucus,Urine Occasional /LPF (Occasional); Nitrite,Urine Negative (Negative); Protein,Urine 100 MG/DL; RBC,Urine 3 /HPF (0-4); Urine Color Straw (Yellow); Urine Specific Gravity 1.006 (1.001-1.035); Urine Urobilinogen < 2.0 EU/DL (0.2-1.0); WBC,Urine 22 /HPF (0-6)
[2017-04-10] MEDS: OXYMETAZOLINE 0.05% NASAL SPRAY 15 ML BOTTLE BOTH NARES PRN ×3 (14:42→21:13)
[2017-04-10 15:02] LABS: Band Neutrophils 3 % (0-10); Burr Cells Few; Eosinophils 1 % (0-10); Hypochromasia Slight; Lymphocytes 2 % (20-55); Platelet Estimate Normal; Poikilocytosis 1+; Segmented Neutrophils 93 % (50-85); Target Cells Few; Total Cells Counted 100
[2017-04-10 19:32] LABS: Basophils % 0.2 % (0.0-0.8); Eosinophils # 0.3 10*3/uL (0.0-0.87); Eosinophils % 2.8 % (0.00-10.9); Hematocrit 26.2 VOL% (42.0-52.0); Hemoglobin 8.9 GM/DL (14.0-18.0); Immature Granulocytes % 0.4 %; Immature Granulocytes Absolute 0.05 #; Lymphocytes # 0.4 10*3/uL (1.4-4.0); Mean Corpuscular Hemoglobin 30 PG (27-34); Mean Corpuscular Volume 86.8 FL (87-102); Mean Platelet Volume 10.4 FL (9.6-12.0); Monocytes # 0.3 10*3/uL (0.11-0.8); Monocytes % 2.6 % (1.7-12.7); NRBC # 0.03 10*3/uL; Neutrophils # 11.1 10*3/uL (1.4-7.4); Platelet Count 298 T/CUMM (130-400); Red Blood Count 3.02 MC/CUMM (3.8-5.5); Red Cell Distribution Width 17.3 % (9.3-17.3); White Blood Count 12.1 T/CUMM (4-12)
[2017-04-10 19:50] LABS: INR 1.5; PT Patient Result 16.3 SECS
[2017-04-10 19:53] LABS: Lactic Acid 1.4 MMOL/L (0.4-2.0)
[2017-04-10 20:03] LABS: Partial Thromboplastin Time 189.3 SECS (0-40)
[2017-04-10 20:11] LABS: CKMB % 5.8 %; Calcium 7.4 MG/DL (8.5-10.1); Magnesium 3.3 MG/DL (1.8-2.4); Osmolality,Calculated 292.7 MOS/KG (273-304); Potassium 3.8 MMOL/L (3.5-5.1); Troponin I Only 0.23 NG/ML (0.00-0.045)
[2017-04-10 20:13] LABS: Band Neutrophils 3 % (0-10); Eosinophils 4 % (0-10); Lymphocytes 3 % (20-55); Platelet Estimate Normal; Segmented Neutrophils 90 % (50-85); Total Cells Counted 100
[2017-04-10 20:15] LABS: Burr Cells Few; Hypochromasia Slight; Ovalocytes Few; Poikilocytosis 1+; Tear Drop Cells Few
[2017-04-11 00:30] LABS: Lactic Acid 1.2 MMOL/L (0.4-2.0)
[2017-04-11 00:50] LABS: Calcium 7.1 MG/DL (8.5-10.1); Magnesium 3.1 MG/DL (1.8-2.4); Osmolality,Calculated 296.4 MOS/KG (273-304); Phosphorous 4.3 MG/DL (2.5-4.9); Potassium 3.9 MMOL/L (3.5-5.1)
[2017-04-11 00:55] LABS: INR 1.5; PT Patient Result 16.5 SECS
[2017-04-11] MEDS: INSULIN REGULAR 100 UNIT/ML IV SCH ×8 (00:56→14:24)
[2017-04-11] MEDS: PROPOFOL 1,000 MG/100 ML BOTTLE IV SCH ×4 (00:57→15:32)
[2017-04-11 00:59] LABS: Basophils % 0.3 % (0.0-0.8); Eosinophils # 0.5 10*3/uL (0.0-0.87); Hemoglobin 9.2 GM/DL (14.0-18.0); Immature Granulocytes % 0.4 %; Immature Granulocytes Absolute 0.06 #; Lymphocytes # 0.4 10*3/uL (1.4-4.0); Lymphocytes % 2.8 % (21.2-54.2); Mean Corpuscular HGB Conc 34.1 GM/DL (32-36); Mean Corpuscular Hemoglobin 30 PG (27-34); Mean Corpuscular Volume 87.4 FL (87-102); Mean Platelet Volume 11.5 FL (9.6-12.0); Monocytes # 0.3 10*3/uL (0.11-0.8); Monocytes % 2.2 % (1.7-12.7); NRBC # 0.04 10*3/uL; Neutrophils # 12.1 10*3/uL (1.4-7.4); Neutrophils % 90.3 % (38.7-73.9); Platelet Count 289 T/CUMM (130-400); Red Blood Count 3.09 MC/CUMM (3.8-5.5); Red Cell Distribution Width 17.5 % (9.3-17.3); White Blood Count 13.4 T/CUMM (4-12)
[2017-04-11] MEDS: PIPERACILLIN/TAZOBACTAM 3,375 MG in SODIUM CHLORIDE 0.9% 100 ML IV SCH ×2 (01:17→14:23)
[2017-04-11] MEDS: LORazepam INJ 40 MG in DEXTROSE 5% 30 ML IV SCH ×2 (01:21→18:15)
[2017-04-11] MEDS: fentaNYL INJ 1,250 MCG in SODIUM CHLORIDE 0.9% 225 ML IV SCH (01:25)
[2017-04-11 01:31] LABS: Partial Thromboplastin Time 183.7 SECS (0-40)
[2017-04-11] MEDS ORDERED: POTASSIUM CHLORIDE RIDER 10 MEQ in PREMIX 1 EACH IV PRN (01:43)
[2017-04-11] MEDS ORDERED: POTASSIUM CHLORIDE RIDER 20 MEQ in PREMIX 1 EACH IV PRN (01:43)
[2017-04-11 02:18] LABS: Eosinophils 1 % (0-10); Lymphocytes 4 % (20-55); Segmented Neutrophils 94 % (50-85); Total Cells Counted 100
[2017-04-11 02:19] LABS: Platelet Estimate Normal
[2017-04-11] MEDS: CISATRACURIUM 200 MG in SODIUM CHLORIDE 0.9% 100 ML IV SCH ×2 (02:32→12:01)
[2017-04-11 03:11] LABS: ABG Base Excess -1.5 MMOL/L (-2.5-2.5); ABG HCO3 23.1 MMOL/L (20-26); ABG Oxygen Saturation 96.5 % (95-100); ABG PCO2 28.8 MM HG (35-48); ABG PH 7.476 (7.35-7.45); ABG PO2 79.8 MM HG (80-95); ABG TCO2 19.6 MMOL/L (23-27); Allen Test Positive; Pt O2 Delivery Device Ventilator
[2017-04-11] MEDS: ALBUTEROL/IPRATROPIUM 3 ML NEB RESP TX SCH ×4 (04:18→19:22)
[2017-04-11] MEDS: HEPARIN DRIP 25,000 UNITS/500 ML PREMIX IV SCH ×3 (04:30→22:45)
--- NOTE | 2017-04-11 07:23 | Cardiology Progress Note ---
Assessment and Plan - Time spent with patient Time spent with patient: Greater than 30 minutes (1) Cardiomyopathy Status: Chronic Assessment and plan: This is severe and ejection fraction around 20% previously. Current Visit: No (2) Chronic kidney disease, stage IV (severe) Problem details: stable to improved. Status: Chronic Assessment and plan: He is now post code and this may deteriorate some. Current Visit: Yes (3) Acute respiratory failure Status: Acute Assessment and plan: Unrelated to this time. Current Visit: Yes Qualifiers: Respiratory failure complication: hypoxia Qualified Code(s): J96.01 - Acute respiratory failure with hypoxia (4) Cardiopulmonary arrest Status: Acute Assessment and plan: Question this patient has underlying cephalopathy now from this. He is undergoing hypothermic therapy and being warmed today. His prognosis is poor. Current Visit: Yes Cardiology - PN: Subj Interval history: The patient remains on hypothermic treatment but is being warmed some. She remains mildly bradycardic in the 50s. His blood pressure running low is back on an epinephrine infusion benefit we'll start some Dao-Synephrine. Neurologically he is no efforts. I'm told by the nursing staff who we have discussed case with the family wants to continue full court press with resuscitation as indicated. The overall be questions is whether he neurologically he will be intact. This is unlikely. Exam (Progress Note) - Constitutional Vitals: Period Temp Pulse Resp BP Sys/Post Pulse Ox Last 24 Hr 91.0 F-93.6 F 46-59 13-20 79-154/48-83 60-100 Exam: Gen. appearance: Patient is orally intubated and sedated on the ventilator. He is on propofol. Certainly probably affects his blood pressure. HEENT: Orally intubated. Lungs: Quite clear anteriorly. Cardiovascular: Bradycardic but regular rate and rhythm. No gross murmur. Abdomen: Soft diminished bowel sounds. Extremities: Edema. Neurologic: Patient is sedated but pupils or dilated and fixed. Skin: Warm. Result/EKG - Labs CBC & BMP: 04/11/17 00:00 04/11/17 00:00 Lab Results: I have reviewed the past 24 hour labs Labs: Laboratory Results - last 24 hr 04/10/17 04/10/17 04/10/17 07:35 07:35 07:35 WBC 7.6 RBC 2.95 L Hgb 8.4 L Hct 25.9 L MCV 87.8 MCH 29 MCHC 32.4 RDW 17.5 H Plt Count 313 MPV 10.6 Neut % (Auto) 88.7 H Lymph % (Auto) 7.8 L [place] % (Auto) 2.9 Eos % (Auto) 0.1 Baso % (Auto) 0.0 Neut # (Auto) 6.7 Lymph # (Auto) 0.6 L [place] # (Auto) 0.2 Eos # (Auto) 0.0 Baso # (Auto) 0.0 Total Counted Immature Gran % 0.5 Nucleated RBC % 0.4 Immature Gran # 0.04 Segmented Neutrophils Band Neutrophils Lymphocytes Monocytes Eosinophils Nucleated RBCs # 0.03 Platelet Estimate Hypochromasia Poikilocytosis Pappenheimer Bodies Target Cells Tear Drop Cells Ovalocytes [place] Cells INR 1.4 PT Patient/Control Mix 15.3 Circ Anticoag PTT 38.2 ABG pH ABG pCO2 ABG pO2 ABG HCO3 ABG Total CO2 ABG O2 Saturation ABG Base Excess FiO2 Sodium 133 L Potassium 4.1 Chloride 98 Carbon Dioxide 24 Anion Gap 15.1 H BUN 87 H Creatinine 4.10 H GFR Calculation 19 BUN/Creatinine Ratio 21.00 H Glucose 186 H POC Glucose Calculated Osmolality 297.4 Lactic Acid 1.2 Calcium 7.7 L Phosphorus Magnesium 3.5 H Total Creatine Kinase 216 CK-MB (CK-2) 9.8 H CK and CKMB Interp 4.5 Troponin I 0.178 H D Urine Color Urine Appearance Urine pH Ur Specific [place] Urine Protein Urine Glucose (UA) Urine Ketones Urine Blood Urine Nitrate Urine Bilirubin Urine Urobilinogen Urine Leukocytes Urine RBC Urine WBC Urine Bacteria Urine Mucus Ur Culture Indicated? 04/10/17 04/10/17 04/10/17 08:10 12:00 13:06 WBC 10.2 D RBC 3.02 L Hgb 8.8 L Hct 26.2 L MCV 86.8 L MCH 29 MCHC 33.6 RDW 17.5 H Plt Count 314 MPV 10.9 Neut % (Auto) 91.6 H Lymph % (Auto) 3.1 L [place] % (Auto) 3.4 Eos % (Auto) 1.4 Baso % (Auto) 0.1 Neut # (Auto) 9.3 H Lymph # (Auto) 0.3 L [place] # (Auto) 0.4 Eos # (Auto) 0.1 Baso # (Auto) 0.0 Total Counted 100 Immature Gran % 0.4 Nucleated RBC % 0.2 Immature Gran # 0.04 Segmented Neutrophils 93 H Band Neutrophils 3 Lymphocytes 2 L Monocytes 1 L Eosinophils 1 Nucleated RBCs # 0.02 Platelet Estimate Normal Hypochromasia Slight Poikilocytosis 1+ Pappenheimer Bodies Target Cells Few Tear Drop Cells Ovalocytes [place] Cells Few INR PT Patient/Control Mix Circ Anticoag PTT ABG pH 7.481 H ABG pCO2 28.6 L ABG pO2 119.0 H ABG HCO3 23.2 ABG Total CO2 19.6 L ABG O2 Saturation 99.0 ABG Base Excess -1.4 FiO2 Sodium Potassium Chloride Carbon Dioxide Anion Gap BUN Creatinine GFR Calculation BUN/Creatinine Ratio Glucose POC Glucose 160 H Calculated Osmolality Lactic Acid Calcium Phosphorus Magnesium Total Creatine Kinase CK-MB (CK-2) CK and CKMB Interp Troponin I Urine Color Urine Appearance Urine pH Ur Specific [place] Urine Protein Urine Glucose (UA) Urine Ketones Urine Blood Urine Nitrate Urine Bilirubin Urine Urobilinogen Urine Leukocytes Urine RBC Urine WBC Urine Bacteria Urine Mucus Ur Culture Indicated? 04/10/17 04/10/17 04/10/17 13:06 13:06 14:05 WBC RBC Hgb Hct MCV MCH MCHC RDW Plt Count MPV Neut % (Auto) Lymph % (Auto) [place] % (Auto) Eos % (Auto) Baso % (Auto) Neut # (Auto) Lymph # (Auto) [place] # (Auto) Eos # (Auto) Baso # (Auto) Total Counted Immature Gran % Nucleated RBC % Immature Gran # Segmented Neutrophils Band Neutrophils Lymphocytes Monocytes Eosinophils Nucleated RBCs # Platelet Estimate Hypochromasia Poikilocytosis Pappenheimer Bodies Target Cells Tear Drop Cells Ovalocytes [place] Cells INR 1.5 PT Patient/Control Mix 16.1 Circ Anticoag PTT 82.5 H D ABG pH ABG pCO2 ABG pO2 ABG HCO3 ABG Total CO2 ABG O2 Saturation ABG Base Excess FiO2 Sodium 133 L Potassium 3.9 Chloride 98 Carbon Dioxide 22 Anion Gap 16.9 H BUN 85 H Creatinine 4.20 H GFR Calculation 19 BUN/Creatinine Ratio 20.00 Glucose 180 H POC Glucose Calculated Osmolality 296.4 Lactic Acid 1.2 Calcium 7.5 L Phosphorus Magnesium 3.3 H Total Creatine Kinase 209 CK-MB (CK-2) 9.9 H CK and CKMB Interp 4.7 Troponin I 0.212 H Urine Color Straw Urine Appearance Clear Urine pH 7.0 Ur Specific [place] 1.006 Urine Protein 100 Urine Glucose (UA) 150 Urine Ketones 5 Urine Blood Small Urine Nitrate Negative Urine Bilirubin Negative Urine Urobilinogen < 2.0 H Urine Leukocytes Trace Urine RBC 3 Urine WBC 22 Urine Bacteria Occasional Urine Mucus Occasional Ur Culture Indicated? Ordered separately 04/10/17 04/10/17 04/10/17 16:08 19:10 19:10 WBC 12.1 H RBC 3.02 L Hgb 8.9 L Hct 26.2 L MCV 86.8 L MCH 30 MCHC 34.0 RDW 17.3 Plt Count 298 MPV 10.4 Neut % (Auto) 91.0 H Lymph % (Auto) 3.0 L [place] % (Auto) 2.6 Eos % (Auto) 2.8 Baso % (Auto) 0.2 Neut # (Auto) 11.1 H Lymph # (Auto) 0.4 L [place] # (Auto) 0.3 Eos # (Auto) 0.3 Baso # (Auto) 0.0 Total Counted 100 Immature Gran % 0.4 Nucleated RBC % 0.2 Immature Gran # 0.05 Segmented Neutrophils 90 H Band Neutrophils 3 Lymphocytes 3 L Monocytes Eosinophils 4 Nucleated RBCs # 0.03 Platelet Estimate Normal Hypochromasia Slight Poikilocytosis 1+ Pappenheimer Bodies Target Cells Tear Drop Cells Few Ovalocytes Few [place] Cells Few INR 1.5 PT Patient/Control Mix 16.3 Circ Anticoag PTT 189.3 H* ABG pH ABG pCO2 ABG pO2 ABG HCO3 ABG Total CO2 ABG O2 Saturation ABG Base Excess FiO2 Sodium Potassium Chloride Carbon Dioxide Anion Gap BUN Creatinine GFR Calculation BUN/Creatinine Ratio Glucose POC Glucose 211 H Calculated Osmolality Lactic Acid Calcium Phosphorus Magnesium Total Creatine Kinase CK-MB (CK-2) CK and CKMB Interp Troponin I Urine Color Urine Appearance Urine pH Ur Specific [place] Urine Protein Urine Glucose (UA) Urine Ketones Urine Blood Urine Nitrate Urine Bilirubin Urine Urobilinogen Urine Leukocytes Urine RBC Urine WBC Urine Bacteria Urine Mucus Ur Culture Indicated? 04/10/17 04/11/17 04/11/17 19:10 00:00 00:00 WBC 13.4 H RBC 3.09 L Hgb 9.2 L Hct 27.0 L MCV 87.4 MCH 30 MCHC 34.1 RDW 17.5 H Plt Count 289 MPV 11.5 Neut % (Auto) 90.3 H Lymph % (Auto) 2.8 L [place] % (Auto) 2.2 Eos % (Auto) 4.0 Baso % (Auto) 0.3 Neut # (Auto) 12.1 H Lymph # (Auto) 0.4 L [place] # (Auto) 0.3 Eos # (Auto) 0.5 Baso # (Auto) 0.0 Total Counted 100 Immature Gran % 0.4 Nucleated RBC % 0.3 Immature Gran # 0.06 Segmented Neutrophils 94 H Band Neutrophils Lymphocytes 4 L Monocytes 1 L Eosinophils 1 Nucleated RBCs # 0.04 Platelet Estimate Normal Hypochromasia Poikilocytosis Pappenheimer Bodies D[employer]ist Target Cells Tear Drop Cells Ovalocytes [place] Cells INR 1.5 PT Patient/Control Mix 16.5 Circ Anticoag PTT 183.7 H* ABG pH ABG pCO2 ABG pO2 ABG HCO3 ABG Total CO2 ABG O2 Saturation ABG Base Excess FiO2 Sodium 131 L Potassium 3.8 Chloride 98 Carbon Dioxide 24 Anion Gap 12.8 BUN 87 H Creatinine 4.30 H GFR Calculation 18 BUN/Creatinine Ratio 20.00 Glucose 175 H POC Glucose Calculated Osmolality 292.7 Lactic Acid 1.4 Calcium 7.4 L Phosphorus Magnesium 3.3 H Total Creatine Kinase 166 D CK-MB (CK-2) 9.6 H CK and CKMB Interp 5.8 Troponin I 0.230 H Urine Color Urine Appearance Urine pH Ur Specific [place] Urine Protein Urine Glucose (UA) Urine Ketones Urine Blood Urine Nitrate Urine Bilirubin Urine Urobilinogen Urine Leukocytes Urine RBC Urine WBC Urine Bacteria Urine Mucus Ur Culture Indicated? 04/11/17 04/11/17 04/11/17 00:00 01:50 01:57 WBC RBC Hgb Hct MCV MCH MCHC RDW Plt Count MPV Neut % (Auto) Lymph % (Auto) [place] % (Auto) Eos % (Auto) Baso % (Auto) Neut # (Auto) Lymph # (Auto) [place] # (Auto) Eos # (Auto) Baso # (Auto) Total Counted Immature Gran % Nucleated RBC % Immature Gran # Segmented Neutrophils Band Neutrophils Lymphocytes Monocytes Eosinophils Nucleated RBCs # Platelet Estimate Hypochromasia Poikilocytosis Pappenheimer Bodies Target Cells Tear Drop Cells Ovalocytes [place] Cells INR PT Patient/Control Mix Circ Anticoag PTT > 200.0 H* ABG pH ABG pCO2 ABG pO2 ABG HCO3 ABG Total CO2 ABG O2 Saturation ABG Base Excess FiO2 Sodium 133 L Potassium 3.9 Chloride 99 Carbon Dioxide 22 Anion Gap 15.9 H BUN 86 H Creatinine 4.30 H GFR Calculation 18 BUN/Creatinine Ratio 20.00 Glucose 183 H POC Glucose 135 H Calculated Osmolality 296.4 Lactic Acid 1.2 Calcium 7.1 L Phosphorus 4.3 Magnesium 3.1 H Total Creatine Kinase CK-MB (CK-2) CK and CKMB Interp Troponin I Urine Color Urine Appearance Urine pH Ur Specific [place] Urine Protein Urine Glucose (UA) Urine Ketones Urine Blood Urine Nitrate Urine Bilirubin Urine Urobilinogen Urine Leukocytes Urine RBC Urine WBC Urine Bacteria Urine Mucus Ur Culture Indicated? 04/11/17 04/11/17 04/11/17 03:05 03:48 04:05 WBC RBC Hgb Hct MCV MCH MCHC RDW Plt Count MPV Neut % (Auto) Lymph % (Auto) [place] % (Auto) Eos % (Auto) Baso % (Auto) Neut # (Auto) Lymph # (Auto) [place] # (Auto) Eos # (Auto) Baso # (Auto) Total Counted Immature Gran % Nucleated RBC % Immature Gran # Segmented Neutrophils Band Neutrophils Lymphocytes Monocytes Eosinophils Nucleated RBCs # Platelet Estimate Hypochromasia Poikilocytosis [place]en[place] Bodies Target Cells Tear Drop Cells Ovalocytes [place] Cells INR PT Patient/Control Mix Circ Anticoag PTT 68.5 H D ABG pH 7.476 H ABG pCO2 28.8 L ABG pO2 79.8 L ABG HCO3 23.1 ABG Total CO2 19.6 L ABG O2 Saturation 96.5 ABG Base Excess -1.5 FiO2 60.00 Sodium Potassium Chloride Carbon Dioxide Anion Gap BUN Creatinine GFR Calculation BUN/Creatinine Ratio Glucose POC Glucose 177 H Calculated Osmolality Lactic Acid Calcium Phosphorus Magnesium Total Creatine Kinase CK-MB (CK-2) CK and CKMB Interp Troponin I Urine Color Urine Appearance Urine pH Ur Specific [place] Urine Protein Urine Glucose (UA) Urine Ketones Urine Blood Urine Nitrate Urine Bilirubin Urine Urobilinogen Urine Leukocytes Urine RBC Urine WBC Urine Bacteria Urine Mucus Ur Culture Indicated? 04/11/17 06:01 WBC RBC Hgb Hct MCV MCH MCHC RDW Plt Count MPV Neut % (Auto) Lymph % (Auto) [place] % (Auto) Eos % (Auto) Baso % (Auto) Neut # (Auto) Lymph # (Auto) [place] # (Auto) Eos # (Auto) Baso # (Auto) Total Counted Immature Gran % Nucleated RBC % Immature Gran # Segmented Neutrophils Band Neutrophils Lymphocytes Monocytes Eosinophils Nucleated RBCs # Platelet Estimate Hypochromasia Poikilocytosis Pappenheimer Bodies Target Cells Tear Drop Cells Ovalocytes [place] Cells INR PT Patient/Control Mix Circ Anticoag PTT ABG pH ABG pCO2 ABG pO2 ABG HCO3 ABG Total CO2 ABG O2 Saturation ABG Base Excess FiO2 Sodium Potassium Chloride Carbon Dioxide Anion Gap BUN Creatinine GFR Calculation BUN/Creatinine Ratio Glucose POC Glucose 197 H Calculated Osmolality Lactic Acid Calcium Phosphorus Magnesium Total Creatine Kinase CK-MB (CK-2) CK and CKMB Interp Troponin I Urine Color Urine Appearance Urine pH Ur Specific [place] Urine Protein Urine Glucose (UA) Urine Ketones Urine Blood Urine Nitrate Urine Bilirubin Urine Urobilinogen Urine Leukocytes Urine RBC Urine WBC Urine Bacteria Urine Mucus Ur Culture Indicated? - Impressions Impressions: Telemetry was sinus bradycardia. No dysrhythmias demonstrated.
[2017-04-11] MEDS: PHENYLEPHRINE DRIP 40 MG/250 ML PREMIX IV SCH ×3 (07:30→21:41)
[2017-04-11 07:35] LABS: Basophils % 0.3 % (0.0-0.8); Eosinophils # 0.7 10*3/uL (0.0-0.87); Eosinophils % 4.5 % (0.00-10.9); Hematocrit 26.8 VOL% (42.0-52.0); Hemoglobin 9.2 GM/DL (14.0-18.0); Immature Granulocytes % 0.4 %; Immature Granulocytes Absolute 0.06 #; Lymphocytes # 0.4 10*3/uL (1.4-4.0); Lymphocytes % 2.9 % (21.2-54.2); Mean Corpuscular HGB Conc 34.3 GM/DL (32-36); Mean Corpuscular Hemoglobin 30 PG (27-34); Mean Corpuscular Volume 86.7 FL (87-102); Monocytes # 0.4 10*3/uL (0.11-0.8); Monocytes % 2.3 % (1.7-12.7); NRBC # 0.04 10*3/uL; Neutrophils # 13.7 10*3/uL (1.4-7.4); Neutrophils % 89.6 % (38.7-73.9); Platelet Count 299 T/CUMM (130-400); Red Blood Count 3.09 MC/CUMM (3.8-5.5); Red Cell Distribution Width 17.5 % (9.3-17.3); White Blood Count 15.3 T/CUMM (4-12)
[2017-04-11] MEDS: FUROSEMIDE 40 MG/4 ML VIAL IV SCH ×2 (07:39→17:00)
[2017-04-11 07:43] LABS: INR 1.5; PT Patient Result 15.8 SECS
[2017-04-11 08:02] LABS: Calcium 7.1 MG/DL (8.5-10.1); Magnesium 3.1 MG/DL (1.8-2.4); Osmolality,Calculated 295.4 MOS/KG (273-304); Potassium 3.7 MMOL/L (3.5-5.1)
[2017-04-11 08:17] LABS: Partial Thromboplastin Time 85.4 SECS (0-40)
[2017-04-11] MEDS: MINERAL OIL/PETROLATUM OPH OINT 3.5 GM TUBE BOTH EYES SCH ×3 (08:52→20:54)
[2017-04-11] MEDS: ASPIRIN EC 81 MG TABLET PO SCH (09:28)
[2017-04-11] MEDS: PANTOPRAZOLE 40 MG VIAL IV SCH (09:28)
[2017-04-11 10:08] LABS: Allen Test Positive; Pt O2 Delivery Device Ventilator
[2017-04-11 10:09] LABS: ABG HCO3 21.7 MMOL/L (20-26); ABG Oxygen Saturation 86.7 % (95-100); ABG PCO2 35.1 MM HG (35-48); ABG PH 7.392 (7.35-7.45); ABG PO2 58.5 MM HG (80-95); ABG TCO2 19.5 MMOL/L (23-27)
--- NOTE | 2017-04-11 10:19 | Nephrology Progress Note ---
Nephrology - PN: Subj Interval history: Patient is status post cardiac arrest he has been on the rewarming protocol at this particular time. He is on pressor medications. Serum creatinine noted to be 4.5. Exam (PN)-Nephrology - Vital Signs Vital signs: Period Temp Pulse Resp BP Sys/Post Pulse Ox Last 24 Hr 91.0 F-94.8 F 46-54 14-14 71-140/45-74 60-100 - General Appearance General appearance: intubated EENT: ATNC Neck: supple Respiratory: clear Cardiology: regular rate, regular rhythm Gastrointestinal: normoactive bowel sounds, no tenderness Musculoskeletal: no clubbing - Lab 04/11/17 07:10 04/11/17 07:10 Most recent lab results ABG pH 7.392 (7.35-7.45) 04/11/17 10:00 ABG pCO2 35.1 MM HG (35-48) 04/11/17 10:00 ABG pO2 58.5 MM HG (80-95) L 04/11/17 10:00 ABG HCO3 21.7 MMOL/L (20-26) 04/11/17 10:00 ABG O2 Saturation 86.7 % (95-100) L 04/11/17 10:00 Calcium 7.1 MG/DL (8.5-10.1) L 04/11/17 07:10 Phosphorus 4.3 MG/DL (2.5-4.9) 04/11/17 00:00 Magnesium 3.1 MG/DL (1.8-2.4) H 04/11/17 07:10 Assessment and Plan (1) Hypocalcemia Status: Acute Assessment and plan: We will give 1 amp of calcium gluconate. Current Visit: Yes (2) Congestive heart failure Status: Chronic Current Visit: Yes Qualifiers: Congestive heart failure type: unspecified congestive heart failure type Congestive heart failure chronicity: acute on chronic Qualified Code(s): I50.9 - Heart failure, unspecified (3) Diabetes Status: Chronic Current Visit: No Qualifiers: Diabetes mellitus type: type 1 Diabetes mellitus complication status: with kidney complications Diabetes mellitus complication detail: with chronic kidney disease Chronic kidney disease stage: stage 4 (severe) Qualified Code (s): E10.22 - Type 1 diabetes mellitus with diabetic chronic kidney disease; N18.4 - Chronic kidney disease, stage 4 (severe) (4) Chronic kidney disease, stage IV (severe) Problem details: stable to improved. Status: Chronic Current Visit: Yes (5) Respiratory failure Status: Resolved Current Visit: No Qualifiers: Chronicity: acute (6) Cardiac arrest Status: Acute Assessment and plan: Patient is critical. Current Visit: Yes
--- NOTE | 2017-04-11 10:31 | Hospitalist Progress Note ---
Assessment and Plan (1) Diabetes Status: Chronic Assessment and plan: Maintain blood sugars around 120-150. Allow for good sugar level to the brain. Current Visit: No Qualifiers: Diabetes mellitus type: type 1 Diabetes mellitus complication status: with kidney complications Diabetes mellitus complication detail: with chronic kidney disease Chronic kidney disease stage: stage 4 (severe) Qualified Code (s): E10.22 - Type 1 diabetes mellitus with diabetic chronic kidney disease; N18.4 - Chronic kidney disease, stage 4 (severe) (2) Systolic CHF, acute on chronic Status: Acute Assessment and plan: Patient cardiac function at this point seems to be optimal. Oxygenating well on intubation. Current Visit: No (3) Sudden cardiac Status: Acute Assessment and plan: Patient underwent a protracted intervention yesterday. From that patient has been unresponsive with very poor neurologic activity. Severe anoxic brain damage and/or brain is a possibility. Neurology is not around to do the exam was this point waiting for them to do it on Thursday. From what I understand family wants everything done. Prognosis is very very poor. Current Visit: Yes Hospitalist: Subjective Interval history: Patient seen and examined and chart has been reviewed. Patient is intensive care unit post ACLS. Has gone through [place] treatment and now been re- warmed. Very poor neuro responses. I am informed this was a protracted ACLS intervention; most likely with the anoxic brain injury. According to the primary care nurse family wants everything done prognosis is grim. Exam - Constitutional Vitals: Period Temp Pulse Resp BP Sys/Post Pulse Ox Last 24 Hr 91.0 F-94.8 F 46-54 14-14 71-140/45-74 60-100 General appearance: over weight, other (No responsive to tactile stimulus or noxious stimuli) - Head Head exam: Present: normocephalic, atraumatic, other (Order intubated) - Eye Eye exam: Present: other (Pupils are unresponsive to light) - Neck Neck exam: Present: other (Supple neck midline trachea) - Respiratory Respiratory exam: Present: other (Crackles in the dependent portion patient is intubated) - Cardiovascular Cardiovascular exam: Present: regular rate and rhythm, other (Occasional ectopy) - GI/Abdominal GI/Abdominal exam: Present: soft - Extremities Exam Extremities exam: Present: full ROM - Neurological Exam Neurological exam: Present: other (Patient is totally unresponsive no purposeful movements. There is another reacting to light.) - Psychiatric Psychiatric exam: Present: other (See neurological system in the) - Skin Skin exam: Present: normal color, warm, dry Results - Labs CBC & BMP: 04/11/17 07:10 04/11/17 07:10 Lab Results: I have reviewed the past 24 hour labs
[2017-04-11 10:42] LABS: Macrocytosis 1+; Platelet Estimate Adequate; Polychromasia Slight
--- NOTE | 2017-04-11 10:54 | Pulmonology Progress Note ---
Pulmonary - PN: Subj Interval history: 61-year-old male with severe cardiomyopathy, EF 20% as well as chronic renal failure admitted post cardiac arrest of unclear etiology. Patient is now on hypothermic protocol in the rewarming phase. He is requiring vasopressors for hemodynamic support. He remains on heparin for the possibility of PE. VQ scan was intermediate probability. Sputum culture is growing gram-negative rods. No neurological changes; he remains sedated paralyzed. Exam (Progress Note) - Constitutional Vitals: Period Temp Pulse Resp BP Sys/Post Pulse Ox Last 24 Hr 91.0 F-95.3 F 46-55 14-16 71-140/45-74 60-100 General appearance: normal weight - Head Head exam: Present: normal inspection - Eye Pupils: Present: constricted - Neck Neck exam: Present: normal inspection - Respiratory Respiratory exam: Present: clear to auscultation bilaterally - Cardiovascular Cardiovascular exam: Present: bradycardia - GI/Abdominal GI/Abdominal exam: Present: normal bowel sounds, soft - Extremities Exam Extremities exam: Present: normal inspection - Neurological Exam Neurological exam: Present: other (Medically sedated and paralyzed) - Skin Skin exam: Present: normal color, dry Results - Labs CBC & BMP: 04/11/17 07:10 04/11/17 07:10 Assessment and Plan (1) Acute respiratory failure Status: Acute Assessment and plan: Unclear etiology of cardiac arrest requiring mechanical ventilation. We will plan to continue mechanical ventilation for now until hypothermic protocol has been completed. We will then assess neurological status to help guide weaning plan. Continue heparin drip for now with intermediate probability VQ scan. Also continue Zosyn and vancomycin; gram-negative rods noted to be growing from sputum culture. Current Visit: Yes Qualifiers: Respiratory failure complication: hypoxia Qualified Code(s): J96.01 - Acute respiratory failure with hypoxia (2) Cardiopulmonary arrest Status: Acute Assessment and plan: Unclear etiology with most likely causes being arrhythmia versus PE. Continue heparin and hypothermic protocol post cardiac arrest. Prognosis is poor. We will be able to better gauge prognosis once patient is warmed and sedation/ paralytics can be discontinued. Current Visit: Yes (3) Chronic kidney disease, stage IV (severe) Problem details: stable to improved. Status: Chronic Assessment and plan: Slowly increasing creatinine postcode. Monitor closely and dose antibiotics appropriately. No current acute indications for hemodialysis. Nephrology following Current Visit: Yes
[2017-04-11] MEDS ORDERED: CALCIUM GLUCONATE 2,000 MG in SODIUM CHLORIDE 0.9% 100 ML IV ONE (11:00)
[2017-04-11 13:51] LABS: Basophils # 0.1 10*3/uL (0.0-0.2); Basophils % 0.4 % (0.0-0.8); Eosinophils # 0.9 10*3/uL (0.0-0.87); Eosinophils % 4.7 % (0.00-10.9); Hematocrit 28.3 VOL% (42.0-52.0); Hemoglobin 9.4 GM/DL (14.0-18.0); Immature Granulocytes % 0.4 %; Immature Granulocytes Absolute 0.08 #; Lymphocytes # 0.6 10*3/uL (1.4-4.0); Lymphocytes % 3.1 % (21.2-54.2); Mean Corpuscular HGB Conc 33.2 GM/DL (32-36); Mean Corpuscular Hemoglobin 29 PG (27-34); Mean Corpuscular Volume 88.2 FL (87-102); Mean Platelet Volume 10.9 FL (9.6-12.0); Monocytes # 0.6 10*3/uL (0.11-0.8); NRBC # 0.05 10*3/uL; Neutrophils # 16.3 10*3/uL (1.4-7.4); Neutrophils % 88.4 % (38.7-73.9); Platelet Count 310 T/CUMM (130-400); Red Blood Count 3.21 MC/CUMM (3.8-5.5); Red Cell Distribution Width 17.4 % (9.3-17.3); White Blood Count 18.4 T/CUMM (4-12)
--- NOTE | 2017-04-11 13:51 | EKG Report ---
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
--- NOTE | 2017-04-11 13:53 | XRay Report ---
XR chest 1V portable Indication: [facility] rewarming protocol Comparison: 10 Apr 2017 Findings: The heart and mediastinum are stable in size and configuration. The lines and tubes are unchanged in position. The pulmonary vascularity is prominent but similar to previous study. Hazy lower lung density is present similar to previous exam. No other lung infiltrates, effusions, pneumothorax or other abnormality is demonstrated. Impression: No significant change PROCEDURE INTERPRETED AT [facility] DEPARTMENT OF RADIOLOGY Final Report Signed by: Dr. Carlos Eduardo Matamoros
[2017-04-11 13:56] LABS: ABG Base Excess -3.7 MMOL/L (-2.5-2.5); ABG HCO3 21.1 MMOL/L (20-26); ABG Oxygen Saturation 89.1 % (95-100); ABG PH 7.374 (7.35-7.45); ABG PO2 63.9 MM HG (80-95); ABG TCO2 22.2 MMOL/L (23-27); Allen Test Positive; Pt O2 Delivery Device Ventilator
[2017-04-11 14:04] LABS: INR 1.4; PT Patient Result 15.1 SECS
[2017-04-11 14:21] LABS: Eosinophils 6 % (0-10); Lymphocytes 3 % (20-55); Platelet Estimate Adequate; Poikilocytosis 2+; Segmented Neutrophils 89 % (50-85); Total Cells Counted 100
[2017-04-11 14:22] LABS: Anisocytosis 1+; Burr Cells 1+
[2017-04-11 14:25] LABS: Albumin 1.5 G/DL (3.4-5.0); Bilirubin,Total 0.5 MG/DL (0.2-1.0); CKMB % 6.8 %; Calcium 7.3 MG/DL (8.5-10.1); Magnesium 3.1 MG/DL (1.8-2.4); Osmolality,Calculated 295.4 MOS/KG (273-304); Phosphorous 5.2 MG/DL (2.5-4.9); Potassium 4.1 MMOL/L (3.5-5.1); Total Protein 5.2 G/DL (6.4-8.3); Troponin I Only 0.228 NG/ML (0.00-0.045)
[2017-04-11 14:40] LABS: Partial Thromboplastin Time 76.5 SECS (0-40)
[2017-04-11 15:34] LABS: ABG Base Excess -3.8 MMOL/L (-2.5-2.5); ABG HCO3 21.4 MMOL/L (20-26); ABG Oxygen Saturation 86.6 % (95-100); ABG PCO2 39.1 MM HG (35-48); ABG PH 7.356 (7.35-7.45); ABG PO2 59.1 MM HG (80-95); ABG TCO2 22.6 MMOL/L (23-27); Allen Test Positive; Pt O2 Delivery Device Ventilator
[2017-04-11] MEDS ORDERED: INSULIN REGULAR 100 UNIT/ML SUBCUT SCH ×2 (16:00→18:00)
--- NOTE | 2017-04-11 16:21 | Event Note ---
The patient's family is at the bedside. They are updated on Mr. Mantilla is status that he is on maximum pressor medications continues to show signs of decline. Family members voiced understanding. Discussion with family about resuscitative status family members have stated in the event of cardiopulmonary arrest they do not want chest compressions or electric shock. At this time will label chart DO NOT RESUSCITATE. The patient's nurses were at the bedside during the family discussion.
[2017-04-11] MEDS: INSULIN REGULAR 100 UNIT/ML SUBCUT SCH ×2 (17:50→20:11)
[2017-04-12] MEDS: ALBUTEROL/IPRATROPIUM 3 ML NEB RESP TX SCH ×4 (00:05→19:01)
[2017-04-12] MEDS: INSULIN REGULAR 100 UNIT/ML SUBCUT SCH ×6 (00:15→20:12)
[2017-04-12] MEDS: PROPOFOL 1,000 MG/100 ML BOTTLE IV SCH (01:18)
[2017-04-12] MEDS: PIPERACILLIN/TAZOBACTAM 3,375 MG in SODIUM CHLORIDE 0.9% 100 ML IV SCH ×2 (01:21→13:45)
[2017-04-12 03:13] LABS: ABG Base Excess -4.1 MMOL/L (-2.5-2.5); ABG HCO3 20.9 MMOL/L (20-26); ABG Oxygen Saturation 96.5 % (95-100); ABG PCO2 33.6 MM HG (35-48); ABG PH 7.387 (7.35-7.45); ABG PO2 87.2 MM HG (80-95); ABG TCO2 18.4 MMOL/L (23-27); Allen Test Positive; Pt O2 Delivery Device Ventilator
[2017-04-12] MEDS ORDERED: POTASSIUM CHLORIDE RIDER 10 MEQ in PREMIX 1 EACH IV PRN (03:59)
[2017-04-12] MEDS ORDERED: POTASSIUM CHLORIDE RIDER 20 MEQ in PREMIX 1 EACH IV PRN (03:59)
[2017-04-12] MEDS ORDERED: VANCOMYCIN INJ 1,500 MG in SODIUM CHLORIDE 0.9% 500 ML IV PRN (04:23)
[2017-04-12 05:32] LABS: Basophils # 0.1 10*3/uL (0.0-0.2); Basophils % 0.5 % (0.0-0.8); Eosinophils # 0.5 10*3/uL (0.0-0.87); Eosinophils % 3.7 % (0.00-10.9); Hematocrit 30.9 VOL% (42.0-52.0); Immature Granulocytes % 0.6 %; Immature Granulocytes Absolute 0.08 #; Lymphocytes % 7.3 % (21.2-54.2); Mean Corpuscular HGB Conc 32.4 GM/DL (32-36); Mean Corpuscular Hemoglobin 29 PG (27-34); Mean Corpuscular Volume 90.4 FL (87-102); Mean Platelet Volume 11.2 FL (9.6-12.0); Monocytes # 0.7 10*3/uL (0.11-0.8); Monocytes % 4.9 % (1.7-12.7); NRBC # 0.06 10*3/uL; Neutrophils # 11.5 10*3/uL (1.4-7.4); Platelet Count 323 T/CUMM (130-400); Red Blood Count 3.42 MC/CUMM (3.8-5.5); Red Cell Distribution Width 17.9 % (9.3-17.3); White Blood Count 13.8 T/CUMM (4-12)
[2017-04-12 05:37] LABS: INR 1.4; PT Patient Result 15.6 SECS
[2017-04-12 05:40] LABS: Partial Thromboplastin Time 91.7 SECS (0-40)
[2017-04-12] MEDS: PHENYLEPHRINE DRIP 40 MG/250 ML PREMIX IV SCH ×2 (05:49→13:40)
[2017-04-12 05:55] LABS: Albumin 1.7 G/DL (3.4-5.0); Bilirubin,Total 0.5 MG/DL (0.2-1.0); Calcium 6.9 MG/DL (8.5-10.1); Osmolality,Calculated 291.5 MOS/KG (273-304); Phosphorous 6.5 MG/DL (2.5-4.9); Potassium 4.7 MMOL/L (3.5-5.1); Total Protein 5.8 G/DL (6.4-8.3)
[2017-04-12 06:00] LABS: Troponin I Only 0.413 NG/ML (0.00-0.045)
--- NOTE | 2017-04-12 07:18 | EKG Report ---
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
--- NOTE | 2017-04-12 08:03 | Pulmonology Progress Note ---
Pulmonary - PN: Subj Interval history: 61-year-old male with severe cardiomyopathy, EF 20% as well as chronic renal failure admitted post cardiac arrest. Patient has now completed hypothermic protocol and was weaned off paralytics and sedation overnight. He continues to require vasopressors for hemodynamic support and he continues to have no spontaneous neurological activity. His oxygen requirement continues to increase overnight with him now requiring 90-100% FiO2 and PEEP of 15 to maintain saturations. With this increasing oxygen requirement and requirement for vasopressor support, family conversation was held yesterday evening where they expressed desire for patient to be DNR, but to continue other current therapies. Exam (Progress Note) - Constitutional Vitals: Period Temp Pulse Resp BP Sys/Post Pulse Ox Last 24 Hr 94.8 F-99 F 54-67 14-31 58-129/38-70 79-100 General appearance: normal weight - Head Head exam: Present: normal inspection - Eye Pupils: Present: constricted - Neck Neck exam: Present: normal inspection - Respiratory Respiratory exam: Present: decreased breath sounds (Bibasilar), rales (Bibasilar ). Absent: rhonchi, wheezes - Cardiovascular Cardiovascular exam: Present: regular rate and rhythm - GI/Abdominal GI/Abdominal exam: Present: normal bowel sounds, soft. Absent: tenderness - Extremities Exam Extremities exam: Present: edema - Neurological Exam Neurological exam: Present: altered. Absent: alert - Skin Skin exam: Present: warm, dry Results - Labs CBC & BMP: 04/12/17 03:17 04/12/17 03:17 - Diagnostic Findings Procedure: Chest x-ray: image reviewed by me, report reviewed by me (Tenured evidence of volume overload with pulmonary edema and bilateral pleural effusions ) Assessment and Plan (1) Acute respiratory failure Status: Acute Assessment and plan: Mechanical ventilation required post cardiac arrest and now patient has evidence of significant volume overload due to underlying depressed EF and now acute kidney injury. Oxygenation has been difficult over the past 24 hours requiring a significant increase in FiO2 as well as PEEP. We will continue with current settings as they appear to be maintaining his saturations above 90 % at this time, to allow for continued assessment of neurological status post code and hypothermic protocol. If patient does not have renal recovery to allow for diuresis we are likely to reach a point where his oxygen saturations will not be able to be maintained above 90% with mechanical ventilation. Patient's family does not desire hemodialysis, which is reasonable given his overall very poor prognosis. If pleural effusions continue to increase and patient's family desires, could consider therapeutic thoracentesis in the near future. Continue heparin for possibility of PE. Continue antibiotics; gram- negative rods growing from sputum culture. Current Visit: Yes Qualifiers: Respiratory failure complication: hypoxia Qualified Code(s): J96.01 - Acute respiratory failure with hypoxia (2) Cardiopulmonary arrest Status: Acute Assessment and plan: Unclear etiology with most likely causes being arrhythmia versus PE. Patient has now completed hypothermic protocol and is now off sedation and paralytics. Continue to monitor neurological status off sedation. Given that there is been no evidence of spontaneous neurological activity thus far, prognosis is very poor. Continue heparin. Current Visit: Yes (3) Chronic kidney disease, stage IV (severe) Problem details: stable to improved. Status: Chronic Assessment and plan: Continued worsening creatinine overnight with continued evidence of significant volume overload affecting his oxygenation. At this time family does not desire hemodialysis. Will adjust Zosyn dosing for creatinine clearance less than 20. Nephrology following Current Visit: Yes
[2017-04-12] MEDS ORDERED: SODIUM CHLORIDE 0.9% 1,000 ML IV ONE (08:42)
--- NOTE | 2017-04-12 08:50 | XRay Report ---
XR chest 1V portable Indication: Intubation Comparison: 11 Apr 2017 Findings: The heart and mediastinum are stable in size and configuration. The lines and tubes are unchanged in position. The pulmonary vascularity is prominent with hazy lower lung density similar to previous study. No other lung infiltrates, effusions, pneumothorax or other abnormality is demonstrated. Impression: No significant change PROCEDURE INTERPRETED AT [facility] DEPARTMENT OF RADIOLOGY Final Report Signed by: Dr. Carlos Eduardo Matamoros
[2017-04-12] MEDS: FUROSEMIDE 40 MG/4 ML VIAL IV SCH ×2 (09:08→17:58)
[2017-04-12] MEDS: PANTOPRAZOLE 40 MG VIAL IV SCH (09:10)
[2017-04-12] MEDS: ASPIRIN EC 81 MG TABLET PO SCH (09:12)
[2017-04-12] MEDS: MINERAL OIL/PETROLATUM OPH OINT 3.5 GM TUBE BOTH EYES SCH ×3 (09:16→21:10)
--- NOTE | 2017-04-12 09:46 | Hospitalist Progress Note ---
Assessment and Plan (1) Diabetes Status: Chronic Assessment and plan: Maintain blood sugars around 120-150. Allow for good sugar level to the brain. Current Visit: No Qualifiers: Diabetes mellitus type: type 1 Diabetes mellitus complication status: with kidney complications Diabetes mellitus complication detail: with chronic kidney disease Chronic kidney disease stage: stage 4 (severe) Qualified Code (s): E10.22 - Type 1 diabetes mellitus with diabetic chronic kidney disease; N18.4 - Chronic kidney disease, stage 4 (severe) (2) Systolic CHF, acute on chronic Status: Acute Assessment and plan: Patient cardiac function at this point seems to be optimal. Oxygenating well on intubation. Current Visit: No (3) Sudden cardiac Status: Acute Assessment and plan: Patient underwent a protracted intervention yesterday. From that patient has been unresponsive with very poor neurologic activity. Severe anoxic brain damage and/or brain is a possibility. Neurology is not around to do the exam was this point waiting for them to do it on Thursday. From what I understand family wants everything done. Prognosis is very very poor. Current Visit: Yes (4) Anuria Status: Acute Assessment and plan: Give patient a liter of normal saline the open wide. Watch for respiratory distress. Patient should be switched to Levophed to allow for higher core pressures. She is in attempt to drive up urine output. Current Visit: Yes (5) Acute kidney injury superimposed on chronic kidney disease Status: Acute Assessment and plan: The acute component could be secondary to ATN. This patient underwent a prolonged intubation following cardiopulmonary arrest. His blood pressures have been pressor dependent and marginal. Remains poor prognosis. Patient currently DNR with allowance of medications. Current Visit: Yes Hospitalist: Subjective Interval history: Patient has been seen and examined. He remains incommunicado and intubated. He is on Dao-Synephrine and epinephrine. Blood pressure seems to be there but is marginal and no urine output. I believe we can switch him to norepinephrine in place of epinephrine to allow for higher core pressures drive up glomerular pressures thus start making some urine. In the process also give him another liter of normal saline. Follow urine output and blood pressure. Exam - Constitutional Vitals: Period Temp Pulse Resp BP Sys/Post Pulse Ox Last 24 Hr 95.3 F-99 F 55-67 16-31 58-129/38-77 79-100 General appearance: over weight - Head Head exam: Present: normocephalic, atraumatic - Eye Eye exam: Present: other (Poor pupillary response to light. No response to noxious tactile stimulus.) - ENT ENT exam: Present: other (Order intubated with retropharyngeal of upper respiratory secretions were bloody. Patient reportedly has had nosebleeds. He is on heparin for suspected PE could have because his cardiopulmonary arrest. Heparin protocol is being followed.) - Neck Neck exam: Present: other (Or intubated) - Respiratory Respiratory exam: Present: other (Bilateral crackles in the dependent portions) - Cardiovascular Cardiovascular exam: Present: regular rate and rhythm, other (And arterial pressures are optimal) - GI/Abdominal GI/Abdominal exam: Present: soft (Infrequent but present bowel sounds) - Extremities Exam Extremities exam: Present: other (No movement observed patient is a sedated and paralyzed) - Neurological Exam Neurological exam: Present: other (Sedated) - Psychiatric Psychiatric exam: Present: other (Sedated and per) - Skin Skin exam: Present: normal color, dry, other (Cool in feet) Results - Labs CBC & BMP: 04/12/17 03:17 04/12/17 03:17 Lab Results: I have reviewed the past 24 hour labs
[2017-04-12] MEDS ORDERED: NOREPINEPHRINE 8 MG in SODIUM CHLORIDE 0.9% 242 ML IV SCH (10:00)
--- NOTE | 2017-04-12 11:21 | Cardiology Progress Note ---
Assessment and Plan (1) Cardiomyopathy Status: Chronic Assessment and plan: This is severe and ejection fraction around 20% previously. This certainly is contributing to his overall medical issues Current Visit: No (2) Chronic kidney disease, stage IV (severe) Problem details: stable to improved. Status: Chronic Assessment and plan: He is now developing acute on chronic renal failure. Current Visit: Yes (3) Acute respiratory failure Status: Acute Assessment and plan: Mechanical ventilation at this time. Current Visit: Yes Qualifiers: Respiratory failure complication: hypoxia Qualified Code(s): J96.01 - Acute respiratory failure with hypoxia Cardiology - PN: Subj Interval history: Patient's been having respiratory issues requiring increased PEEP. He is not making any spontaneous movement requiring increasing pressors. His creatinine is rising. He is not a candidate for dialysis. Dr. Colby's note seen and reviewed in patient's family is made him a DNR now. From cardiac standpoint his rhythm is remained stable. His blood pressures up at this time requiring pressor agents to do so. He is not having any meaningful urine output. His prognosis remains poor. Exam (Progress Note) - Constitutional Vitals: Period Temp Pulse Resp BP Sys/Post Pulse Ox Last 24 Hr 96.1 F-99 F 58-67 16-31 58-129/38-77 79-100 Exam: Gen. appearance: Patient is orally intubated and sedated on the ventilator. HEENT: Orally intubated. Lungs: Quite clear anteriorly. Cardiovascular: Bradycardic but regular rate and rhythm. No gross murmur. Abdomen: Soft diminished bowel sounds. Extremities: Diffuse and generalized edema Neurologic: Patient is unresponsive to any stimuli. Skin: Warm. Result/EKG - Labs CBC & BMP: 04/12/17 03:17 04/12/17 03:17 Lab Results: I have reviewed the past 24 hour labs Labs: Laboratory Results - last 24 hr 04/11/17 04/11/17 04/11/17 12:07 13:28 13:28 WBC RBC Hgb Hct MCV MCH MCHC RDW Plt Count MPV Neut % (Auto) Lymph % (Auto) Gray % (Auto) Eos % (Auto) Baso % (Auto) Neut # (Auto) Lymph # (Auto) Gray # (Auto) Eos # (Auto) Baso # (Auto) Total Counted Immature Gran % Nucleated RBC % Immature Gran # Segmented Neutrophils Lymphocytes Monocytes Eosinophils Nucleated RBCs # Platelet Estimate Poikilocytosis Anisocytosis [place] Cells INR PT Patient/Control Mix Circ Anticoag PTT ABG pH ABG pCO2 ABG pO2 ABG HCO3 ABG Total CO2 ABG O2 Saturation ABG Base Excess FiO2 Sodium Cancelled 133 L Potassium Cancelled 4.1 Chloride Cancelled 98 Carbon Dioxide Cancelled 23 Anion Gap Cancelled 16.1 H BUN Cancelled 84 H Creatinine Cancelled 4.80 H GFR Calculation Cancelled 11 BUN/Creatinine Ratio Cancelled 17.00 Glucose Cancelled 165 H POC Glucose 185 H Calculated Osmolality Cancelled 295.4 Lactic Acid 2.0 Calcium Cancelled 7.3 L Phosphorus 5.2 H Magnesium Cancelled 3.1 H Total Bilirubin 0.50 AST 28 ALT 21 Alkaline Phosphatase 263 H Total Creatine Kinase 111 D CK-MB (CK-2) 7.6 H CK and CKMB Interp 6.8 Troponin I 0.228 H Total Protein 5.2 L Albumin 1.5 L Globulin 3.7 H Albumin/Globulin Ratio 0.4 L Random Vancomycin 04/11/17 04/11/17 04/11/17 13:55 15:30 17:51 WBC RBC Hgb Hct MCV MCH MCHC RDW Plt Count MPV Neut % (Auto) Lymph % (Auto) Gray % (Auto) Eos % (Auto) Baso % (Auto) Neut # (Auto) Lymph # (Auto) Gray # (Auto) Eos # (Auto) Baso # (Auto) Total Counted Immature Gran % Nucleated RBC % Immature Gran # Segmented Neutrophils Lymphocytes Monocytes Eosinophils Nucleated RBCs # Platelet Estimate Poikilocytosis Anisocytosis [place] Cells INR PT Patient/Control Mix Circ Anticoag PTT ABG pH 7.374 7.356 ABG pCO2 37.0 39.1 ABG pO2 63.9 L 59.1 L ABG HCO3 21.1 21.4 ABG Total CO2 22.2 L 22.6 L ABG O2 Saturation 89.1 L 86.6 L ABG Base Excess -3.7 L -3.8 L FiO2 60.00 100.00 Sodium Potassium Chloride Carbon Dioxide Anion Gap BUN Creatinine GFR Calculation BUN/Creatinine Ratio Glucose POC Glucose 239 H Calculated Osmolality Lactic Acid Calcium Phosphorus Magnesium Total Bilirubin AST ALT Alkaline Phosphatase Total Creatine Kinase CK-MB (CK-2) CK and CKMB Interp Troponin I Total Protein Albumin Globulin Albumin/Globulin Ratio Random Vancomycin 04/11/17 04/11/17 04/11/17 20:07 23:39 Unknown WBC 18.4 H RBC 3.21 L Hgb 9.4 L Hct 28.3 L MCV 88.2 MCH 29 MCHC 33.2 RDW 17.4 H Plt Count 310 MPV 10.9 Neut % (Auto) 88.4 H Lymph % (Auto) 3.1 L Gray % (Auto) 3.0 Eos % (Auto) 4.7 Baso % (Auto) 0.4 Neut # (Auto) 16.3 H Lymph # (Auto) 0.6 L Gray # (Auto) 0.6 Eos # (Auto) 0.9 H Baso # (Auto) 0.1 Total Counted 100 Immature Gran % 0.4 Nucleated RBC % 0.3 Immature Gran # 0.08 Segmented Neutrophils 89 H Lymphocytes 3 L Monocytes 2 Eosinophils 6 Nucleated RBCs # 0.05 Platelet Estimate Adequate Poikilocytosis 2+ Anisocytosis 1+ Jayson Cells 1+ INR PT Patient/Control Mix Circ Anticoag PTT ABG pH ABG pCO2 ABG pO2 ABG HCO3 ABG Total CO2 ABG O2 Saturation ABG Base Excess FiO2 Sodium Potassium Chloride Carbon Dioxide Anion Gap BUN Creatinine GFR Calculation BUN/Creatinine Ratio Glucose POC Glucose 196 H 186 H Calculated Osmolality Lactic Acid Calcium Phosphorus Magnesium Total Bilirubin AST ALT Alkaline Phosphatase Total Creatine Kinase CK-MB (CK-2) CK and CKMB Interp Troponin I Total Protein Albumin Globulin Albumin/Globulin Ratio Random Vancomycin 04/11/17 04/12/17 04/12/17 Unknown 03:05 03:17 WBC RBC Hgb Hct MCV MCH MCHC RDW Plt Count MPV Neut % (Auto) Lymph % (Auto) Gray % (Auto) Eos % (Auto) Baso % (Auto) Neut # (Auto) Lymph # (Auto) Gray # (Auto) Eos # (Auto) Baso # (Auto) Total Counted Immature Gran % Nucleated RBC % Immature Gran # Segmented Neutrophils Lymphocytes Monocytes Eosinophils Nucleated RBCs # Platelet Estimate Poikilocytosis Anisocytosis Jayson Cells INR 1.4 PT Patient/Control Mix 15.1 Circ Anticoag PTT 76.5 H ABG pH 7.387 ABG pCO2 33.6 L ABG pO2 87.2 ABG HCO3 20.9 ABG Total CO2 18.4 L ABG O2 Saturation 96.5 ABG Base Excess -4.1 L FiO2 100.00 Sodium Potassium Chloride Carbon Dioxide Anion Gap BUN Creatinine GFR Calculation BUN/Creatinine Ratio Glucose POC Glucose Calculated Osmolality Lactic Acid Calcium Phosphorus Magnesium Total Bilirubin AST ALT Alkaline Phosphatase Total Creatine Kinase CK-MB (CK-2) CK and CKMB Interp Troponin I Total Protein Albumin Globulin Albumin/Globulin Ratio Random Vancomycin 26.0 04/12/17 04/12/17 04/12/17 03:17 03:17 03:17 WBC 13.8 H RBC 3.42 L Hgb 10.0 L Hct 30.9 L MCV 90.4 MCH 29 MCHC 32.4 RDW 17.9 H Plt Count 323 MPV 11.2 Neut % (Auto) 83.0 H Lymph % (Auto) 7.3 L Gray % (Auto) 4.9 Eos % (Auto) 3.7 Baso % (Auto) 0.5 Neut # (Auto) 11.5 H Lymph # (Auto) 1.0 L Gray # (Auto) 0.7 Eos # (Auto) 0.5 Baso # (Auto) 0.1 Total Counted Immature Gran % 0.6 Nucleated RBC % 0.4 Immature Gran # 0.08 Segmented Neutrophils Lymphocytes Monocytes Eosinophils Nucleated RBCs # 0.06 Platelet Estimate Poikilocytosis Anisocytosis Jayson Cells INR 1.4 PT Patient/Control Mix 15.6 Circ Anticoag PTT 91.7 H ABG pH ABG pCO2 ABG pO2 ABG HCO3 ABG Total CO2 ABG O2 Saturation ABG Base Excess FiO2 Sodium Potassium Chloride Carbon Dioxide Anion Gap BUN Creatinine GFR Calculation BUN/Creatinine Ratio Glucose POC Glucose Calculated Osmolality Lactic Acid 1.9 Calcium Phosphorus Magnesium Total Bilirubin AST ALT Alkaline Phosphatase Total Creatine Kinase CK-MB (CK-2) CK and CKMB Interp Troponin I Total Protein Albumin Globulin Albumin/Globulin Ratio Random Vancomycin 04/12/17 04/12/17 04/12/17 03:17 03:17 03:17 WBC RBC Hgb Hct MCV MCH MCHC RDW Plt Count MPV Neut % (Auto) Lymph % (Auto) Gray % (Auto) Eos % (Auto) Baso % (Auto) Neut # (Auto) Lymph # (Auto) Gray # (Auto) Eos # (Auto) Baso # (Auto) Total Counted Immature Gran % Nucleated RBC % Immature Gran # Segmented Neutrophils Lymphocytes Monocytes Eosinophils Nucleated RBCs # Platelet Estimate Poikilocytosis Anisocytosis [place] Cells INR PT Patient/Control Mix Circ Anticoag PTT ABG pH ABG pCO2 ABG pO2 ABG HCO3 ABG Total CO2 ABG O2 Saturation ABG Base Excess FiO2 Sodium 132 L Potassium 4.7 Chloride 98 Carbon Dioxide 20 L Anion Gap 18.7 H BUN 84 H Creatinine 5.20 H GFR Calculation 10 BUN/Creatinine Ratio 16.00 Glucose 131 H POC Glucose Calculated Osmolality 291.5 Lactic Acid Calcium 6.9 L Phosphorus 6.5 H Magnesium 3.3 H Total Bilirubin 0.50 AST 33 ALT 23 Alkaline Phosphatase 283 H Total Creatine Kinase 95 CK-MB (CK-2) 4.2 H CK and CKMB Interp Troponin I 0.413 H D Total Protein 5.8 L Albumin 1.7 L Globulin 4.1 H Albumin/Globulin Ratio 0.4 L Random Vancomycin 04/12/17 04/12/17 03:56 07:38 WBC RBC Hgb Hct MCV MCH MCHC RDW Plt Count MPV Neut % (Auto) Lymph % (Auto) Gray % (Auto) Eos % (Auto) Baso % (Auto) Neut # (Auto) Lymph # (Auto) Gray # (Auto) Eos # (Auto) Baso # (Auto) Total Counted Immature Gran % Nucleated RBC % Immature Gran # Segmented Neutrophils Lymphocytes Monocytes Eosinophils Nucleated RBCs # Platelet Estimate Poikilocytosis Anisocytosis [place] Cells INR PT Patient/Control Mix Circ Anticoag PTT ABG pH ABG pCO2 ABG pO2 ABG HCO3 ABG Total CO2 ABG O2 Saturation ABG Base Excess FiO2 Sodium Potassium Chloride Carbon Dioxide Anion Gap BUN Creatinine GFR Calculation BUN/Creatinine Ratio Glucose POC Glucose 126 H 131 H Calculated Osmolality Lactic Acid Calcium Phosphorus Magnesium Total Bilirubin AST ALT Alkaline Phosphatase Total Creatine Kinase CK-MB (CK-2) CK and CKMB Interp Troponin I Total Protein Albumin Globulin Albumin/Globulin Ratio Random Vancomycin - Impressions Impressions: Telemetry sinus rhythm heart rate in 60s.
[2017-04-12] MEDS ORDERED: CALCIUM GLUCONATE 2,000 MG in SODIUM CHLORIDE 0.9% 100 ML IV PRN (12:06)
--- NOTE | 2017-04-12 12:07 | Nephrology Progress Note ---
Nephrology - PN: Subj Interval history: This patient situation is about the same. He remains ventilated. He remains on pressor medications. Serum creatinine is 5.2 today. Exam (PN)-Nephrology - Vital Signs Vital signs: Period Temp Pulse Resp BP Sys/Post Pulse Ox Last 24 Hr 96.5 F-99 F 59-67 16-31 58-129/38-77 79-100 - General Appearance General appearance: intubated EENT: ATNC Neck: supple Respiratory: clear Cardiology: regular rate, regular rhythm Gastrointestinal: normoactive bowel sounds Integumentary: no rash - Lab 04/12/17 03:17 04/12/17 03:17 Most recent lab results ABG pH 7.387 (7.35-7.45) 04/12/17 03:05 ABG pCO2 33.6 MM HG (35-48) L 04/12/17 03:05 ABG pO2 87.2 MM HG (80-95) 04/12/17 03:05 ABG HCO3 20.9 MMOL/L (20-26) 04/12/17 03:05 ABG O2 Saturation 96.5 % (95-100) 04/12/17 03:05 Calcium 6.9 MG/DL (8.5-10.1) L 04/12/17 03:17 Phosphorus 6.5 MG/DL (2.5-4.9) H 04/12/17 03:17 Magnesium 3.3 MG/DL (1.8-2.4) H 04/12/17 03:17 Assessment and Plan (1) Hypocalcemia Status: Acute Assessment and plan: We will give 1 amp of calcium gluconate. Current Visit: Yes (2) Congestive heart failure Status: Chronic Current Visit: Yes Qualifiers: Congestive heart failure type: unspecified congestive heart failure type Congestive heart failure chronicity: acute on chronic Qualified Code(s): I50.9 - Heart failure, unspecified (3) Diabetes Status: Chronic Current Visit: No Qualifiers: Diabetes mellitus type: type 1 Diabetes mellitus complication status: with kidney complications Diabetes mellitus complication detail: with chronic kidney disease Chronic kidney disease stage: stage 4 (severe) Qualified Code (s): E10.22 - Type 1 diabetes mellitus with diabetic chronic kidney disease; N18.4 - Chronic kidney disease, stage 4 (severe) (4) Chronic kidney disease, stage IV (severe) Problem details: stable to improved. Status: Chronic Current Visit: Yes (5) Respiratory failure Status: Resolved Current Visit: No Qualifiers: Chronicity: acute (6) Cardiac arrest Status: Acute Assessment and plan: Patient is critical. Current Visit: Yes
[2017-04-12] MEDS: HEPARIN DRIP 25,000 UNITS/500 ML PREMIX IV SCH (16:40)
[2017-04-12] MEDS: DESITIN 4OZ/NYSTATIN 15 GRAM MIXTURE PASTE TOP SCH ×2 (18:00→21:10)
[2017-04-12 18:11] LABS: INR 1.4; PT Patient Result 14.7 SECS
[2017-04-12 18:18] LABS: Partial Thromboplastin Time 63.8 SECS (0-40)
[2017-04-13] MEDS: INSULIN REGULAR 100 UNIT/ML SUBCUT SCH ×6 (00:15→20:28)
[2017-04-13] MEDS: ALBUTEROL/IPRATROPIUM 3 ML NEB RESP TX SCH ×4 (00:47→20:19)
[2017-04-13 00:48] LABS: INR 1.3; PT Patient Result 14.4 SECS
[2017-04-13] MEDS: PIPERACILLIN/TAZOBACTAM 3,375 MG in SODIUM CHLORIDE 0.9% 100 ML IV SCH ×2 (01:01→12:32)
[2017-04-13 02:46] LABS: ABG Base Excess -5.7 MMOL/L (-2.5-2.5); ABG HCO3 19.7 MMOL/L (20-26); ABG PCO2 26.7 MM HG (35-48); ABG PH 7.429 (7.35-7.45); ABG TCO2 16.4 MMOL/L (23-27); Allen Test Positive; Pt O2 Delivery Device Ventilator
[2017-04-13 04:52] LABS: Basophils # 0.1 10*3/uL (0.0-0.2); Basophils % 0.7 % (0.0-0.8); Eosinophils # 0.3 10*3/uL (0.0-0.87); Eosinophils % 3.3 % (0.00-10.9); Hematocrit 23.8 VOL% (42.0-52.0); Hemoglobin 7.9 GM/DL (14.0-18.0); Immature Granulocytes % 0.5 %; Immature Granulocytes Absolute 0.05 #; Lymphocytes # 0.9 10*3/uL (1.4-4.0); Lymphocytes % 8.9 % (21.2-54.2); Mean Corpuscular HGB Conc 33.2 GM/DL (32-36); Mean Corpuscular Hemoglobin 29 PG (27-34); Mean Corpuscular Volume 86.2 FL (87-102); Mean Platelet Volume 11.1 FL (9.6-12.0); Monocytes # 0.5 10*3/uL (0.11-0.8); Monocytes % 4.8 % (1.7-12.7); NRBC # 0.03 10*3/uL; Neutrophils # 8.4 10*3/uL (1.4-7.4); Neutrophils % 81.8 % (38.7-73.9); Platelet Count 259 T/CUMM (130-400); Red Blood Count 2.76 MC/CUMM (3.8-5.5); Red Cell Distribution Width 17.6 % (9.3-17.3); White Blood Count 10.3 T/CUMM (4-12)
[2017-04-13 05:20] LABS: Alanine Aminotransferase 18 U/L (16-61); Albumin 1.7 G/DL (3.4-5.0); Alkaline Phosphatase 228 U/L (45-117); Aspartate Amino Transferase 41 U/L (0-37); Blood Urea Nitrogen 88 MG/DL (7-18); Calcium 6.6 MG/DL (8.5-10.1); Glucose 178 MG/DL (74-106); Osmolality,Calculated 294.5 MOS/KG (273-304); Phosphorous 7.9 MG/DL (2.5-4.9); Potassium 4.9 MMOL/L (3.5-5.1); Sodium 132 MMOL/L (136-145); Total Protein 5.4 G/DL (6.4-8.3); Troponin I Only 0.354 NG/ML (0.00-0.045)
[2017-04-13] MEDS ORDERED: SODIUM CHLORIDE 0.9% 250 ML IV PRN (05:51)
--- NOTE | 2017-04-13 07:25 | Pulmonology Progress Note ---
Pulmonary - PN: Subj Interval history: This 61-year-old man had a cardiac arrest and has finished the [place] sun protocol. He remains on the ventilator. He required higher settings of PEEP and FiO2 over the weekend but this morning his PO2 is 264 on 90% oxygen and 15 of PEEP. We can reduce both the FiO2 and PEEP and recheck ABGs this morning. He remains unresponsive. Apparently does have a bit of a gag reflex. Neurology is to review his case and see what they think about prognosis. Family has made him a DO NOT RESUSCITATE. 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 Exam (Progress Note) - Constitutional Vitals: Period Temp Pulse Resp BP Sys/Post Pulse Ox Last 24 Hr 98.2 F-98.9 F 64-67 6-27 98-134/54-80 98-100 Exam: Patient is unresponsive. Vital signs normal. Pupils small irregular and sluggish. Face symmetrical. Is asked to return to the light. Orotracheal tube is in place. Neck is supple. Chest reveals a few rhonchi equal breath sounds. Heart normal rate rhythm no murmurs. Abdomen soft no masses. Extremities no clubbing cyanosis edema. Results - Labs CBC & BMP: 04/13/17 04:00 04/13/17 04:00 Lab Results: I have reviewed the past 24 hour labs - Diagnostic Findings Procedure: Chest x-ray: image reviewed by me (Some left basilar atelectasis. Minimal increased interstitial infiltrates) Assessment and Plan (1) Acute respiratory failure Status: Acute Assessment and plan: Patient is on the ventilator 100% oxygen. ABGs look good at present. Will reduce FiO2 to 60%. Certainly cannot start weaning until we see what his mental status is like and that will be after Arctic sun protocol. 04/13/1970 ABGs improved. Will reduce FiO2 and PEEP a little. Prognosis is poor. Current Visit: Yes Qualifiers: Respiratory failure complication: hypoxia Qualified Code(s): J96.01 - Acute respiratory failure with hypoxia (2) Cardiac arrest Status: Acute Assessment and plan: Patient had a cardiac arrest last night. He has known severe cardiomyopathy. Did not have any known electrolyte imbalance. Does have chronic renal failure with a creatinine now around 5. He would be at increased risk for a pulmonary embolism. 04/13/17 it appears that he has had significant brain injury. Await neurologic evaluation. Current Visit: Yes (3) Chronic renal insufficiency Status: Chronic Assessment and plan: Creatinine has gone up from about 3.7-5 over the last few days. 04/13/17 creatinine up to 5.9 Current Visit: Yes (4) Congestive heart failure Status: Chronic Assessment and plan: Systolic acute on chronic congestive failure due to severe cardiomyopathy. His troponins are not elevated so it does not appear that he had a myocardial infarction as the cause of his arrest last night. 04/13/17 x-ray shows increased interstitial markings consistent with congestive heart failure, but not birgida pulmonary edema. Current Visit: Yes Qualifiers: Congestive heart failure type: unspecified congestive heart failure type Congestive heart failure chronicity: acute on chronic Qualified Code(s): I50.9 - Heart failure, unspecified (5) Cellulitis and abscess of face Status: Acute Assessment and plan: He has actually completed full course of treatment for the cellulitis. We need to be careful about vancomycin with his renal failure. Defer to ENT and nephrology on antibiotics and dosing. Current Visit: No (6) Nephrotic syndrome Status: Chronic Assessment and plan: He has peripheral edema. Low serum protein. Increased risk for DVT/PTED. Current Visit: No (7) Pulmonary embolism Status: Acute Assessment and plan: Perfusion lung scan suggestive of pulmonary embolism. Unable to obtain PE protocol CT scan due to renal failure. Patient is on empiric heparin infusion. Current Visit: Yes
--- NOTE | 2017-04-13 08:01 | EKG Report ---
Stationary ECG Study [facility] Test Date: 04/13/2017 8:01:31 AM Pat Name: EMMY ROPER Department: Room: 114 Gender: M [employer] Colonel: : 1955 Requested by: Amrit Heredia Order Number: [id number] Reading MD: JACQUELINE HARRINGTON Intervals [place] Rate: 68 P: 102 NH: 192 QRS: 139 QRSD: 98 T: 0 QT: 413 QTc: 430 Interpretive Statements SINUS RHYTHM WITH OCCASIONAL ECTOPIC PREMATURE COMPLEXES INDETERMINATE AXIS Electronically Signed On 04-13-17 17:00:45 CDT by JACQUELINE HARRINGTON [email or web address]
[2017-04-13] MEDS: FUROSEMIDE 40 MG/4 ML VIAL IV SCH ×2 (08:24→16:13)
--- NOTE | 2017-04-13 08:24 | XRay Report ---
Portable chest Date: 04/13/2017 Clinical history: Intubation Comparison: 04/12/2017 Technique: Portable AP sitting chest Findings: Stable cardiomegaly and supportive devices. Minimally reduced diffuse parenchymal findings with persistent small pleural effusions. Retained oral contrast in the stomach. Degenerative changes are noted with stable mediastinum. Impression: Minimally improved edema/infiltration/atelectasis with minimally smaller right and more stable small left pleural effusions. The supportive devices are unchanged in position. PROCEDURE INTERPRETED AT [facility] DEPARTMENT OF RADIOLOGY Final Report Signed by: Dr. Isha Stewart
[2017-04-13] MEDS: PANTOPRAZOLE 40 MG VIAL IV SCH (08:31)
[2017-04-13] MEDS: ASPIRIN EC 81 MG TABLET PO SCH (08:31)
[2017-04-13] MEDS: MINERAL OIL/PETROLATUM OPH OINT 3.5 GM TUBE BOTH EYES SCH ×3 (08:43→21:33)
[2017-04-13] MEDS: DESITIN 4OZ/NYSTATIN 15 GRAM MIXTURE PASTE TOP SCH ×2 (08:43→21:33)
[2017-04-13 08:56] LABS: ABG Base Excess -6.6 MMOL/L (-2.5-2.5); ABG PCO2 25.2 MM HG (35-48); ABG PH 7.429 (7.35-7.45); ABG TCO2 15.6 MMOL/L (23-27)
--- NOTE | 2017-04-13 09:53 | Physician Query Form ---
CLICK EDIT DOCUMENT TO SELECT QUERY ANSWER --> OK --> SIGN Sissy Miller RN Clinical Order Make Up Clerk W) [phone] (f) [phone] [email or web address] PROVIDERS: Make your selection(s) from the choices in EACH section by typing an "x" and enter comments in the comment section. Please use your independent medical judgment in providing your response. This request does not imply that any particular answer is desired or expected. CLINICAL INDICATORS: (Providers should not edit this section) Pt. admitted with cardic arrest and acute respiratory failure. Pt. also has cellulitis of face. WBC=18.4 and Temp=90.5. Lactic acid level of 5.1. Based on documentation of "He is requiring vasopressors for hemodynamic support". Pt. also treated with IV Zosyn. Please clarify which, if any, of the following is the etiology of the above symptoms and treatment rendered: ( ) Sepsis due to a localized infection, please specify infection: (x ) Severe Sepsis (sepsis with acute organ failure) - Please specify type acute organ failure: ( ) Septic Shock (severe sepsis with hypotension) ( ) SIRS of noninfectious origin ( ) Localized infection only, without systemic illness, please specify infection : ( ) Bacteremia (abnormal lab finding only, does not indicate systemic illness) ( ) Other condition, please specify: ( ) Clinically unable to determine Criteria for Sepsis (SIRS due to an infection) should be based on 2 or more of the following being present: Temperature > 101F or < 96.8F WBC > 12,000 or < 4,000, or > 10% bands Tachycardia HR > 90 beats/minute Tachypnea RR > 20 breaths/minute or PaCO2 > 32mmHg Lactate level > 2.0 mmol/L (>4 is equivalent to severe sepsis) Altered Mental Status Mottling of skin or prolonged capillary refill Non-diabetic hyperglycemia (blood sugar >120 mg/dl) Other evidence of acute organ failure associated with sepsis ( severe sepsis) COMMENTS: This is acute sepsis syndrome now with note patient had Klebsiella pneumoniae in the sputum antibiogram is pending PLEASE ALSO DOCUMENT RESPONSE IN PROGRESS NOTES AND/OR DISCHARGE SUMMARY Use of terms such as suspected, likely, or probable (associated with a specific diagnosis that is being evaluated, monitored, or treated as if it exists) are acceptable and can be restated in the discharge summary if not ruled out. MTDD
--- NOTE | 2017-04-13 09:56 | Cardiology Progress Note ---
Juan A Bruner Vanessa, RN, am scribing for, and in the presence of, Dani Hagan MD 09:56. Assessment and Plan - Time spent with patient Time spent with patient: Greater than 30 minutes (1) Cardiomyopathy Status: Chronic Assessment and plan: Severe cardiomyopathy with ejection fraction 20%. Current Visit: No (2) Acute respiratory failure Status: Acute Assessment and plan: Intubated with mechanical ventilation. Managed per pulmonology. Current Visit: Yes Qualifiers: Respiratory failure complication: hypoxia Qualified Code(s): J96.01 - Acute respiratory failure with hypoxia (3) Cardiopulmonary arrest Status: Acute Current Visit: Yes (4) Chronic kidney disease, stage IV (severe) Status: Chronic Assessment and plan: Worsening renal failure s/p cardiac arrest. He is being followed and managed per nephrology. Noted he is not a candidate for dialysis. Current Visit: Yes Cardiology - PN: Subj Interval history: PRIMARY WEIGHT CLERK: DR. JACKY TINAJERO PCP: [facility] Mr. Mantilla is a 61 year old male, patient of Dr. Tinajero. He has a history of congestive heart failure, dyslipidemia, diabetes, hypertension, cardiomyopathy, chronic renal insufficiency stage IV. He was transferred to [facility] ED on 04/09 status post code. Patient was being housed at [facility] when he coded and was apparently asystole for an extended period of time before he was intubated and prior to arriving in our ED. Experiencced cardiac arrest once in [facility]. He was intubated, placed on an Epinephrine infusion, stabilized, and transferred to the ICU. We were consulted to see him. Patient was initiated on hypothermia protocol with Arctic Sun to help prevent hypoxic brain injury and multiple IV vasopressors. Vasopressors have been weaned and he is on IV Heparin. Patient has finished warming process hypothermia process and remains unresponsive still. Code Status has now been changed to DO NOT RESCUSCITATE. He is being followed by pulmonology. Nephrology and neurology have been consulted to see him. He was previously hospitalized at [facility] a little over a month ago with acute respiratory failure, chronic renal failure, and nephrotic syndrome and we were following him at that time. During the previous admission, he required mechanical ventilation for several days. He was found to have a severe cardiomyopathy with ejection fraction 20%, severe global hypokinesis, grade 3 diastolic dysfunction, mild pulmonary hypertension, mild biatrial enlargement, mild pulmonic valve insufficiency. He was weaned off the ventilator and eventually improved enough to [facility] for further rehab and IV antibiotics for his cheek infection with MRSA. APRIL 13, 2017: Patient intubated with no sedation in ICU this morning. Warming phase completed around 0400 this morning. He remains unresponsive. Sinus rhythm with pulse rate in the 60s. BP 120/50. Significant anemia this AM with H/H 7.9 & 23.8, and he will receive 2 units PRBCs this morning. He does have chronic renal failure, and since cardiac arrest, creatinine trended upward and is now 5.9. Positive fluid balance. Per nephrology note, he is not a candidate for dialysis. 04/13: 1: Nonischemic cardiomyopathy 2: Chronic renal failure 3: Cardiac arrest 4: Hypoxic brain injury 5: DNR and family request This is a 61-year-old [place] man who has a history of chronic renal insufficiency cardiomyopathy dyslipidemia diabetes hypertension who presents with cardiac arrest treated with CPR and now is warming after therapeutic hypothermia. He has no return of significant neurologic function currently and we are going to continue support. I reviewed this with the patient's family. Our findings were discussed with the patient's family and they were in agreement with our plans for treatment. Exam (Progress Note) - Constitutional Vitals: Period Temp Pulse Resp BP Sys/Post Pulse Ox Last 24 Hr 98.2 F-98.9 F 64-67 6-27 108-134/54-80 98-100 Exam: Gen. appearance: Patient is orally intubated and sedated on the ventilator. HEENT: Orally intubated. Lungs: Quite clear anteriorly. No wheeze, rhonchi. Cardiovascular: Bradycardic but regular rate and rhythm. No gross murmur. Abdomen: Soft diminished bowel sounds. No mass Extremities: Diffuse and generalized edema Neurologic: Patient is unresponsive to any stimuli. Skin: Warm, dry. Result/EKG - Labs CBC & BMP: 04/13/17 04:00 04/13/17 04:00 Lab Results: I have reviewed the past 24 hour labs Labs: Laboratory Results - last 24 hr 04/12/17 04/12/17 04/12/17 11:49 11:53 12:06 WBC RBC Hgb Hct MCV MCH MCHC RDW Plt Count MPV Neut % (Auto) Lymph % (Auto) Norman % (Auto) Eos % (Auto) Baso % (Auto) Neut # (Auto) Lymph # (Auto) Norman # (Auto) Eos # (Auto) Baso # (Auto) Immature Gran % Nucleated RBC % Immature Gran # Nucleated RBCs # INR PT Patient/Control Mix Circ Anticoag PTT 77.6 H ABG pH ABG pCO2 ABG pO2 ABG HCO3 ABG Total CO2 ABG O2 Saturation ABG Base Excess FiO2 Sodium Potassium Chloride Carbon Dioxide Anion Gap BUN Creatinine GFR Calculation BUN/Creatinine Ratio Glucose POC Glucose 137 H 157 H Calculated Osmolality Calcium Phosphorus Total Bilirubin AST ALT Alkaline Phosphatase Total Creatine Kinase CK-MB (CK-2) Troponin I Total Protein Albumin Globulin Albumin/Globulin Ratio Blood Type 04/12/17 04/12/17 04/12/17 16:07 17:46 19:48 WBC RBC Hgb Hct MCV MCH MCHC RDW Plt Count MPV Neut % (Auto) Lymph % (Auto) Norman % (Auto) Eos % (Auto) Baso % (Auto) Neut # (Auto) Lymph # (Auto) Norman # (Auto) Eos # (Auto) Baso # (Auto) Immature Gran % Nucleated RBC % Immature Gran # Nucleated RBCs # INR 1.4 PT Patient/Control Mix 14.7 Circ Anticoag PTT 63.8 H ABG pH ABG pCO2 ABG pO2 ABG HCO3 ABG Total CO2 ABG O2 Saturation ABG Base Excess FiO2 Sodium Potassium Chloride Carbon Dioxide Anion Gap BUN Creatinine GFR Calculation BUN/Creatinine Ratio Glucose POC Glucose 169 H 192 H Calculated Osmolality Calcium Phosphorus Total Bilirubin AST ALT Alkaline Phosphatase Total Creatine Kinase CK-MB (CK-2) Troponin I Total Protein Albumin Globulin Albumin/Globulin Ratio Blood Type 04/12/17 04/13/17 04/13/17 23:20 00:00 02:34 WBC RBC Hgb Hct MCV MCH MCHC RDW Plt Count MPV Neut % (Auto) Lymph % (Auto) Norman % (Auto) Eos % (Auto) Baso % (Auto) Neut # (Auto) Lymph # (Auto) Norman # (Auto) Eos # (Auto) Baso # (Auto) Immature Gran % Nucleated RBC % Immature Gran # Nucleated RBCs # INR 1.3 PT Patient/Control Mix 14.4 Circ Anticoag PTT 72.0 H ABG pH 7.429 ABG pCO2 26.7 L ABG pO2 264.0 H ABG HCO3 19.7 L ABG Total CO2 16.4 L ABG O2 Saturation 100.0 ABG Base Excess -5.7 L FiO2 90.00 Sodium Potassium Chloride Carbon Dioxide Anion Gap BUN Creatinine GFR Calculation BUN/Creatinine Ratio Glucose POC Glucose 178 H Calculated Osmolality Calcium Phosphorus Total Bilirubin AST ALT Alkaline Phosphatase Total Creatine Kinase CK-MB (CK-2) Troponin I Total Protein Albumin Globulin Albumin/Globulin Ratio Blood Type 04/13/17 04/13/17 04/13/17 03:35 04:00 04:00 WBC 10.3 RBC 2.76 L Hgb 7.9 L D Hct 23.8 L MCV 86.2 L MCH 29 MCHC 33.2 RDW 17.6 H Plt Count 259 MPV 11.1 Neut % (Auto) 81.8 H Lymph % (Auto) 8.9 L Norman % (Auto) 4.8 Eos % (Auto) 3.3 Baso % (Auto) 0.7 Neut # (Auto) 8.4 H Lymph # (Auto) 0.9 L Norman # (Auto) 0.5 Eos # (Auto) 0.3 Baso # (Auto) 0.1 Immature Gran % 0.5 Nucleated RBC % 0.3 Immature Gran # 0.05 Nucleated RBCs # 0.03 INR PT Patient/Control Mix Circ Anticoag PTT ABG pH ABG pCO2 ABG pO2 ABG HCO3 ABG Total CO2 ABG O2 Saturation ABG Base Excess FiO2 Sodium 132 L Potassium 4.9 Chloride 98 Carbon Dioxide 16 L Anion Gap 22.9 H BUN 88 H Creatinine 5.90 H GFR Calculation 9 BUN/Creatinine Ratio 14.00 Glucose 178 H POC Glucose 195 H Calculated Osmolality 294.5 Calcium 6.6 L Phosphorus 7.9 H Total Bilirubin 0.50 AST 41 H ALT 18 Alkaline Phosphatase 228 H Total Creatine Kinase 87 CK-MB (CK-2) 3.0 Troponin I 0.354 H Total Protein 5.4 L Albumin 1.7 L Globulin 3.7 H Albumin/Globulin Ratio 0.4 L Blood Type 04/13/17 04/13/17 05:35 Unknown WBC RBC Hgb Hct MCV MCH MCHC RDW Plt Count MPV Neut % (Auto) Lymph % (Auto) Norman % (Auto) Eos % (Auto) Baso % (Auto) Neut # (Auto) Lymph # (Auto) Norman # (Auto) Eos # (Auto) Baso # (Auto) Immature Gran % Nucleated RBC % Immature Gran # Nucleated RBCs # INR PT Patient/Control Mix Circ Anticoag PTT 70.4 H ABG pH ABG pCO2 ABG pO2 ABG HCO3 ABG Total CO2 ABG O2 Saturation ABG Base Excess FiO2 Sodium Potassium Chloride Carbon Dioxide Anion Gap BUN Creatinine GFR Calculation BUN/Creatinine Ratio Glucose POC Glucose Calculated Osmolality Calcium Phosphorus Total Bilirubin AST ALT Alkaline Phosphatase Total Creatine Kinase CK-MB (CK-2) Troponin I Total Protein Albumin Globulin Albumin/Globulin Ratio Blood Type O POSITIVE - Diagnostic Findings Procedure: Chest x-ray: image reviewed by me, report reviewed by me - EKG EKG results: interpreted by me, no acute changes EKG shows: sinus rhythm Bentley Bruner Wesley, MD, personally performed the services described in this documentation, ascribed by Shania Velazco RN in my presence, and it is both accurate and complete [phone] .
--- NOTE | 2017-04-13 10:45 | Hospitalist Progress Note ---
Assessment and Plan (1) Diabetes Status: Chronic Assessment and plan: Maintain blood sugars around 120-150. Allow for good sugar level to the brain. Current Visit: No Qualifiers: Diabetes mellitus type: type 1 Diabetes mellitus complication status: with kidney complications Diabetes mellitus complication detail: with chronic kidney disease Chronic kidney disease stage: stage 4 (severe) Qualified Code (s): E10.22 - Type 1 diabetes mellitus with diabetic chronic kidney disease; N18.4 - Chronic kidney disease, stage 4 (severe) (2) Systolic CHF, acute on chronic Status: Acute Assessment and plan: Patient cardiac function at this point seems to be optimal. Oxygenating well on intubation. Current Visit: No (3) Sudden cardiac Status: Acute Assessment and plan: Patient underwent a protracted intervention yesterday. From that patient has been unresponsive with very poor neurologic activity. Severe anoxic brain damage and/or brain is a possibility. Neurology is not around to do the exam was this point waiting for them to do it on today (04/13/17). From what I understand family wants everything done. Prognosis is very very poor. Current Visit: Yes (4) Anuria Status: Acute Assessment and plan: Patient is having a unit of blood now. Continue Levophed and Dao-Synephrine. Current Visit: Yes (5) Acute kidney injury superimposed on chronic kidney disease Status: Acute Assessment and plan: The acute component could be secondary to ATN. This patient underwent a prolonged intubation following cardiopulmonary arrest. His blood pressures have been pressor dependent and marginal. Remains poor prognosis. Patient currently DNR with allowance of medications. Current Visit: Yes Hospitalist: Subjective Interval history: Patient has been seen and examined. He still remains incommunicado intubated very poor neurologic responses. No pupillary response to light. Admitted to the intensive care unit after protracted resuscitative efforts. Than likely severe anoxic injury and possible brain . Expect neurology to evaluate this patient today. No services over the weekend. Is also been noted anemia patient is receiving a unit of packed cells today. Repeat H&H after transfusion. There is also profound oliguria of her with blood transfusion that can come up again but is doubtful for steroid supplement over the weekend and not do much. He does have anasarca subsequent resuscitation oxygenation and blood pressure are optimal but patient is on pressors. Family made him DNR over the weekend. May need to revisit issues of aggressive treatment after neurologic evaluation. Prognosis remains grim. Exam - Constitutional Vitals: Period Temp Pulse Resp BP Sys/Post Pulse Ox Last 24 Hr 98.2 F-98.9 F 64-67 6-30 108-134/54-80 99-100 General appearance: over weight - Head Head exam: Present: normocephalic, atraumatic, other (Order intubated) - Eye Eye exam: Present: other (Poor pupillary response to light) - ENT ENT exam: Present: other (Orally intubated) - Respiratory Respiratory exam: Present: other (Bilateral crackles with faint sound patient is breathing at the rate of the vent setting. Duration was 100%) - Cardiovascular Cardiovascular exam: Present: regular rate and rhythm - GI/Abdominal GI/Abdominal exam: Present: soft, other (Infrequent bowel sounds heard) - Extremities Exam Extremities exam: Present: other (No purposeful movement) - Neurological Exam Neurological exam: Present: other (Cognitive function or motor function) - Psychiatric Psychiatric exam: Present: other (Responsive comatose) - Skin Skin exam: Present: normal color, warm, dry Results - Labs CBC & BMP: 04/13/17 04:00 04/13/17 04:00 Lab Results: I have reviewed the past 24 hour labs
--- NOTE | 2017-04-13 12:15 | Nephrology Progress Note ---
Nephrology - PN: Subj Interval history: He remains unresponsive on the ventilator. He has been hypotensive and oliguric during the weekend. Exam (PN)-Nephrology - Vital Signs Vital signs: Period Temp Pulse Resp BP Sys/Post Pulse Ox Last 24 Hr 98.2 F-98.8 F 64-67 6-30 108-134/54-80 99-100 Exam: Gen.: Nonresponsive, on ventilator ENT: Intubated Neck: Supple. No JVD or bruit. Cardiovascular: Regular rate and rhythm. No murmur rub or gallop Lungs: Clear Abdomen: Soft. Nontender. Positive bowel sounds. No organomegaly Extremities: 2+ edema - Lab 04/13/17 04:00 04/13/17 04:00 Most recent lab results ABG pH 7.429 (7.35-7.45) 04/13/17 08:50 ABG pCO2 25.2 MM HG (35-48) L 04/13/17 08:50 ABG pO2 190.0 MM HG (80-95) H 04/13/17 08:50 ABG HCO3 19.0 MMOL/L (20-26) L 04/13/17 08:50 ABG O2 Saturation 100.0 % (95-100) 04/13/17 08:50 Calcium 6.6 MG/DL (8.5-10.1) L 04/13/17 04:00 Phosphorus 7.9 MG/DL (2.5-4.9) H 04/13/17 04:00 Magnesium 3.3 MG/DL (1.8-2.4) H 04/12/17 03:17 Assessment and Plan (1) Chronic kidney disease, stage IV (severe) Status: Chronic Assessment and plan: 61-year-old man admitted with: * CRF stage IV. Baseline creatinine mid threes * ARF on CRF. Worsened secondary to hypotension. * Nephrotic syndrome * Diabetes mellitus * Cardiomyopathy * Cardiac arrest. * Anoxic brain injury. Neurology consulted. Prognosis poor Current Visit: Yes (2) Acute respiratory failure Status: Acute Current Visit: Yes Qualifiers: Respiratory failure complication: hypoxia Qualified Code(s): J96.01 - Acute respiratory failure with hypoxia (3) Cardiac arrest Status: Acute Current Visit: Yes (4) Cellulitis and abscess of face Status: Acute Current Visit: No (5) Cardiomyopathy Status: Chronic Current Visit: No (6) Diabetes Status: Chronic Current Visit: No Qualifiers: Diabetes mellitus type: type 1 Diabetes mellitus complication status: with kidney complications Diabetes mellitus complication detail: with chronic kidney disease Chronic kidney disease stage: stage 4 (severe) Qualified Code (s): E10.22 - Type 1 diabetes mellitus with diabetic chronic kidney disease; N18.4 - Chronic kidney disease, stage 4 (severe) (7) Nephrotic syndrome Status: Chronic Current Visit: No
[2017-04-13] MEDS: HEPARIN DRIP 25,000 UNITS/500 ML PREMIX IV SCH (12:35)
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
[2017-04-14] MEDS: PIPERACILLIN/TAZOBACTAM 3,375 MG in SODIUM CHLORIDE 0.9% 100 ML IV SCH ×2 (00:34→12:01)
[2017-04-14] MEDS: INSULIN REGULAR 100 UNIT/ML SUBCUT SCH ×6 (00:34→21:11)
[2017-04-14] MEDS: ALBUTEROL/IPRATROPIUM 3 ML NEB RESP TX SCH ×4 (00:43→19:11)
[2017-04-14 03:25] LABS: ABG Base Excess -6.2 MMOL/L (-2.5-2.5); ABG HCO3 19.3 MMOL/L (20-26); ABG PCO2 25.5 MM HG (35-48); ABG PH 7.431 (7.35-7.45); ABG TCO2 15.6 MMOL/L (23-27); Allen Test Positive; Pt O2 Delivery Device Ventilator
[2017-04-14 05:18] LABS: Basophils # 0.1 10*3/uL (0.0-0.2); Basophils % 0.7 % (0.0-0.8); Eosinophils # 0.4 10*3/uL (0.0-0.87); Eosinophils % 4.2 % (0.00-10.9); Hematocrit 27.3 VOL% (42.0-52.0); Hemoglobin 9.2 GM/DL (14.0-18.0); Immature Granulocytes % 0.4 %; Immature Granulocytes Absolute 0.03 #; Lymphocytes % 11.5 % (21.2-54.2); Mean Corpuscular HGB Conc 33.7 GM/DL (32-36); Mean Corpuscular Hemoglobin 29 PG (27-34); Mean Corpuscular Volume 84.8 FL (87-102); Mean Platelet Volume 10.8 FL (9.6-12.0); Monocytes # 0.6 10*3/uL (0.11-0.8); Monocytes % 7.5 % (1.7-12.7); NRBC # 0.05 10*3/uL; Neutrophils # 6.4 10*3/uL (1.4-7.4); Neutrophils % 75.7 % (38.7-73.9); Platelet Count 232 T/CUMM (130-400); Red Blood Count 3.22 MC/CUMM (3.8-5.5); Red Cell Distribution Width 17.7 % (9.3-17.3); White Blood Count 8.4 T/CUMM (4-12)
[2017-04-14 05:45] LABS: Calcium 6.6 MG/DL (8.5-10.1); Magnesium 3.3 MG/DL (1.8-2.4); Osmolality,Calculated 296.5 MOS/KG (273-304); Potassium 4.6 MMOL/L (3.5-5.1)
--- NOTE | 2017-04-14 06:53 | XRay Report ---
Exam: XR chest 1V portable Date: 04/14/2017 4:00 AM Indication: Follow-up ventilator Comparison: 04/13/2017 Findings:: Endotracheal tube is located at the level aortic knob. Nasogastric tube traverses esophagus. A right IJ catheter is present in the superior vena cava. Low volume effusions are present. Lateral marginal osteophytes are present. Small amount of contrast in the stomach is present. External cardiac leads are present. Bony structures reveal no acute findings Impression: 1. Stable position of life-support tubing and persistent low volume effusions with cardiac enlargement. 2. Degenerative spondylosis change thoracic spine 3. No significant interval changes PROCEDURE INTERPRETED AT [facility] DEPARTMENT OF RADIOLOGY Final Report Signed by: Dr. Alfonso Maddox
--- NOTE | 2017-04-14 07:26 | Pulmonology Progress Note ---
Pulmonary - PN: Subj Interval history: This 61-year-old man had a cardiac arrest and has finished the [employer] sun protocol. He remains on the ventilator. He required higher settings of PEEP and FiO2 over the weekend but this morning his PO2 is 264 on 90% oxygen and 15 of PEEP. We can reduce both the FiO2 and PEEP and recheck ABGs this morning. He remains unresponsive. Apparently does have a bit of a gag reflex. Neurology is to review his case and see what they think about prognosis. Family has made him a DO NOT RESUSCITATE. 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 04/14/2017 patient remains unresponsive. Neurologic evaluation has indicated severe hypoxic brain injury. ABGs are improved. Chest x-ray is stable. Will reduce FiO2 and PEEP. Hopefully can start weaning trial soon. His renal function is getting worse with creatinine up to 6.9. Prognosis is grave. Continuing full support at present. Exam (Progress Note) - Constitutional Vitals: Period Temp Pulse Resp BP Sys/Post Pulse Ox Last 24 Hr 98.3 F-98.8 F 66-97 9-30 119-153/56-86 98-100 Exam: Patient is unresponsive. Vital signs normal. Pupils small irregular and sluggish. Face symmetrical. Is asked to return to the light. Orotracheal tube is in place. Neck is supple. Chest reveals a few rhonchi equal breath sounds. Heart normal rate rhythm no murmurs. Abdomen soft no masses. Extremities no clubbing cyanosis edema. Results - Labs CBC & BMP: 04/14/17 05:05 04/14/17 05:05 Lab Results: I have reviewed the past 24 hour labs - Diagnostic Findings Procedure: Chest x-ray: image reviewed by me (Slightly increased interstitial markings in both bases little change from before. ET tube good position.) Assessment and Plan (1) Acute respiratory failure Status: Acute Assessment and plan: Patient is on the ventilator 100% oxygen. ABGs look good at present. Will reduce FiO2 to 60%. Certainly cannot start weaning until we see what his mental status is like and that will be after [employer] sun protocol. 04/13/17 ABGs improved. Will reduce FiO2 and PEEP a little. Prognosis is poor. 04/14/2017 ABGs improved. We can reduce both FiO2 and PEEP. Hopefully one would get his PEEP down to 6 we can start weaning. Current Visit: Yes Qualifiers: Respiratory failure complication: hypoxia Qualified Code(s): J96.01 - Acute respiratory failure with hypoxia (2) Cardiac arrest Status: Acute Assessment and plan: Patient had a cardiac arrest last night. He has known severe cardiomyopathy. Did not have any known electrolyte imbalance. Does have chronic renal failure with a creatinine now around 5. He would be at increased risk for a pulmonary embolism. 04/13/17 it appears that he has had significant brain injury. Await neurologic evaluation. 04/14/2017 and apparent severe hypoxic brain injury. See neurology note Current Visit: Yes (3) Chronic renal insufficiency Status: Chronic Assessment and plan: Creatinine has gone up from about 3.7-5 over the last few days. 04/13/17 creatinine up to 5.9 04/14/2017 creatinine is up to 6.9. Will start on some nasogastric feedings and IV fluids. Current Visit: Yes (4) Congestive heart failure Status: Chronic Assessment and plan: Systolic acute on chronic congestive failure due to severe cardiomyopathy. His troponins are not elevated so it does not appear that he had a myocardial infarction as the cause of his arrest last night. 04/13/17 x-ray shows increased interstitial markings consistent with congestive heart failure, but not brigida pulmonary edema. 04/14/2017 does not appear to be in pulmonary edema. Current Visit: Yes Qualifiers: Congestive heart failure type: unspecified congestive heart failure type Congestive heart failure chronicity: acute on chronic Qualified Code(s): I50.9 - Heart failure, unspecified (5) Cellulitis and abscess of face Status: Acute Assessment and plan: He has actually completed full course of treatment for the cellulitis. We need to be careful about vancomycin with his renal failure. Defer to ENT and nephrology on antibiotics and dosing. Current Visit: No (6) Nephrotic syndrome Status: Chronic Assessment and plan: He has peripheral edema. Low serum protein. Increased risk for DVT/PTED. Current Visit: No (7) Pulmonary embolism Status: Acute Assessment and plan: Perfusion lung scan suggestive of pulmonary embolism. Unable to obtain PE protocol CT scan due to renal failure. Patient is on empiric heparin infusion. 04/14/2017 continuing heparin for suspected pulmonary thromboembolic disease Current Visit: Yes
[2017-04-14] MEDS ORDERED: DEXTROSE 5% NACL 0.45% 1,000 ML IV SCH (07:30)
[2017-04-14] MEDS: ASPIRIN EC 81 MG TABLET PO SCH (08:24)
[2017-04-14] MEDS: FUROSEMIDE 40 MG/4 ML VIAL IV SCH (08:24)
[2017-04-14] MEDS: PANTOPRAZOLE 40 MG VIAL IV SCH (08:24)
[2017-04-14] MEDS: HEPARIN DRIP 25,000 UNITS/500 ML PREMIX IV SCH ×2 (08:25→19:00)
[2017-04-14] MEDS: DESITIN 4OZ/NYSTATIN 15 GRAM MIXTURE PASTE TOP SCH ×2 (08:32→21:12)
[2017-04-14] MEDS: MINERAL OIL/PETROLATUM OPH OINT 3.5 GM TUBE BOTH EYES SCH ×3 (08:32→21:11)
--- NOTE | 2017-04-14 08:34 | Cardiology Progress Note ---
Juan A Bruner Vanessa, RN, am scribing for, and in the presence of, Dani Hagan MD 08:33. Assessment and Plan - Time spent with patient Time spent with patient: Greater than 30 minutes (1) Cardiomyopathy Status: Chronic Assessment and plan: Severe cardiomyopathy with ejection fraction 20%. Current Visit: No (2) Acute respiratory failure Status: Acute Assessment and plan: Intubated with mechanical ventilation. Managed per pulmonology. Current Visit: Yes Qualifiers: Respiratory failure complication: hypoxia Qualified Code(s): J96.01 - Acute respiratory failure with hypoxia (3) Cardiopulmonary arrest Status: Acute Current Visit: Yes (4) Chronic kidney disease, stage IV (severe) Status: Chronic Assessment and plan: Worsening renal failure s/p cardiac arrest. He is being followed and managed per nephrology. Noted he is not a candidate for dialysis. 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 JACKY TINAJERO PCP: [facility] Mr. Mantilla is a 61 year old male, patient of Dr. Tinajero. He has a history of congestive heart failure, dyslipidemia, diabetes, hypertension, cardiomyopathy, chronic renal insufficiency stage IV. He was transferred to [facility] ED on 04/09 status post code. Patient was being housed at [facility] when he coded and was apparently asystole for an extended period of time before he was intubated and prior to arriving in our ED. Experiencced cardiac arrest once in [place] ED. He was intubated, placed on an Epinephrine infusion, stabilized, and transferred to the ICU. We were consulted to see him. Patient was initiated on hypothermia protocol with Arctic Sun to help prevent hypoxic brain injury and multiple IV vasopressors. Vasopressors have been weaned and he is on IV Heparin. Patient has finished warming process hypothermia process and remains unresponsive still. Code Status has now been changed to DO NOT RESCUSCITATE. He is being followed by pulmonology. Nephrology and neurology have been consulted to see him. He was previously hospitalized at [facility] a little over a month ago with acute respiratory failure, chronic renal failure, and nephrotic syndrome and we were following him at that time. During the previous admission, he required mechanical ventilation for several days. He was found to have a severe cardiomyopathy with ejection fraction 20%, severe global hypokinesis, grade 3 diastolic dysfunction, mild pulmonary hypertension, mild biatrial enlargement, mild pulmonic valve insufficiency. He was weaned off the ventilator and eventually improved enough to [facility] for further rehab and IV antibiotics for his cheek infection with MRSA. APRIL 14, 2017: Mr. Mantilla remains in the ICU intubated this morning status post warming process of hypothermia protocol. He is not requiring sedation. Patient is neurologically unchanged and remains unresponsive. Creatinine continues to trend upward and today is 6.9. K+ 4.6 and Mg+ 3.3. Sinus rhythm, pulse 70s. BP 150/70 and not requiring vasopressor support. IV Heparin infusion continued. There is been no improvement in his neurologic status. He does withdraw to severe pain but does not respond otherwise. He is a DNR and we will try to push diuresis. Exam (Progress Note) - Constitutional Vitals: Period Temp Pulse Resp BP Sys/Post Pulse Ox Last 24 Hr 98.3 F-98.8 F 66-97 9-30 119-155/56-86 98-100 Exam: Gen. appearance: Patient is orally intubated and sedated on the ventilator. HEENT: Orally intubated. Lungs: Quite clear anteriorly. No wheeze, rhonchi. Cardiovascular: regular rate and rhythm. No gross murmur. Abdomen: Soft diminished bowel sounds. No mass Extremities: Diffuse and generalized edema Neurologic: Patient is unresponsive to any stimuli. Skin: Warm, dry. Result/EKG - Labs CBC & BMP: 04/14/17 05:05 04/14/17 05:05 Lab Results: I have reviewed the past 24 hour labs Labs: Laboratory Results - last 24 hr 04/13/17 04/13/17 04/13/17 07:45 08:50 11:31 WBC RBC Hgb Hct MCV MCH MCHC RDW Plt Count MPV Neut % (Auto) Lymph % (Auto) Sebastian % (Auto) Eos % (Auto) Baso % (Auto) Neut # (Auto) Lymph # (Auto) Sebastian # (Auto) Eos # (Auto) Baso # (Auto) Immature Gran % Nucleated RBC % Immature Gran # Nucleated RBCs # Circ Anticoag PTT ABG pH 7.429 ABG pCO2 25.2 L ABG pO2 190.0 H ABG HCO3 19.0 L ABG Total CO2 15.6 L ABG O2 Saturation 100.0 ABG Base Excess -6.6 L FiO2 Sodium Potassium Chloride Carbon Dioxide Anion Gap BUN Creatinine GFR Calculation BUN/Creatinine Ratio Glucose POC Glucose 198 H 231 H Calculated Osmolality Calcium Magnesium Random Vancomycin Blood Type Antibody Screen Crossmatch 04/13/17 04/13/17 04/13/17 16:01 20:26 Unknown WBC RBC Hgb Hct MCV MCH MCHC RDW Plt Count MPV Neut % (Auto) Lymph % (Auto) Sebastian % (Auto) Eos % (Auto) Baso % (Auto) Neut # (Auto) Lymph # (Auto) Sebastian # (Auto) Eos # (Auto) Baso # (Auto) Immature Gran % Nucleated RBC % Immature Gran # Nucleated RBCs # Circ Anticoag PTT ABG pH ABG pCO2 ABG pO2 ABG HCO3 ABG Total CO2 ABG O2 Saturation ABG Base Excess FiO2 Sodium Potassium Chloride Carbon Dioxide Anion Gap BUN Creatinine GFR Calculation BUN/Creatinine Ratio Glucose POC Glucose 192 H 175 H Calculated Osmolality Calcium Magnesium Random Vancomycin Blood Type O POSITIVE Antibody Screen Negative Crossmatch See Detail 04/14/17 04/14/17 04/14/17 03:16 05:05 05:05 WBC 8.4 RBC 3.22 L Hgb 9.2 L Hct 27.3 L MCV 84.8 L MCH 29 MCHC 33.7 RDW 17.7 H Plt Count 232 MPV 10.8 Neut % (Auto) 75.7 H Lymph % (Auto) 11.5 L Sebastian % (Auto) 7.5 Eos % (Auto) 4.2 Baso % (Auto) 0.7 Neut # (Auto) 6.4 Lymph # (Auto) 1.0 L Sebastian # (Auto) 0.6 Eos # (Auto) 0.4 Baso # (Auto) 0.1 Immature Gran % 0.4 Nucleated RBC % 0.6 Immature Gran # 0.03 Nucleated RBCs # 0.05 Circ Anticoag PTT ABG pH 7.431 ABG pCO2 25.5 L ABG pO2 226.0 H ABG HCO3 19.3 L ABG Total CO2 15.6 L ABG O2 Saturation 100.0 ABG Base Excess -6.2 L FiO2 60.00 Sodium Potassium Chloride Carbon Dioxide Anion Gap BUN Creatinine GFR Calculation BUN/Creatinine Ratio Glucose POC Glucose Calculated Osmolality Calcium Magnesium Random Vancomycin 22.3 Blood Type Antibody Screen Crossmatch 04/14/17 04/14/17 05:05 05:12 WBC RBC Hgb Hct MCV MCH MCHC RDW Plt Count MPV Neut % (Auto) Lymph % (Auto) Sebastian % (Auto) Eos % (Auto) Baso % (Auto) Neut # (Auto) Lymph # (Auto) Sebastian # (Auto) Eos # (Auto) Baso # (Auto) Immature Gran % Nucleated RBC % Immature Gran # Nucleated RBCs # Circ Anticoag PTT 57.5 H ABG pH ABG pCO2 ABG pO2 ABG HCO3 ABG Total CO2 ABG O2 Saturation ABG Base Excess FiO2 Sodium 132 L Potassium 4.6 Chloride 98 Carbon Dioxide 19 L Anion Gap 19.6 H BUN 93 H Creatinine 6.90 H GFR Calculation 10 BUN/Creatinine Ratio 13.00 Glucose 169 H POC Glucose Calculated Osmolality 296.5 Calcium 6.6 L Magnesium 3.3 H Random Vancomycin Blood Type Antibody Screen Crossmatch - EKG EKG results: interpreted by me, no acute changes EKG shows: sinus rhythm Bentley Bruner Wesley, MD, personally performed the services described in this documentation, ascribed by Shania Velazco RN in my presence, and it is both accurate and complete [id number] .
[2017-04-14] MEDS: SODIUM CHLORIDE 0.9% 1,000 ML IV SCH (08:48)
--- NOTE | 2017-04-14 08:51 | EKG Report ---
Stationary ECG Study [facility] Test Date: 04/14/2017 7:10:09 AM Pat Name: EMMY ROPER Department: Room: 114 Gender: M Medication Coordinator: MICHELLE : 1955 Requested by: Amrit Heredia Order Number: [id number] Reading MD: JACQUELINE HARRINGTON Intervals [place] Rate: 68 P: -15 CT: 155 QRS: -71 QRSD: 102 T: 153 QT: 431 QTc: 449 Interpretive Statements SINUS RHYTHM MARKED LEFT AXIS DEVIATION Electronically Signed On 04-14-17 18:25:46 CDT by JACQUELINE HARRINGTON [email or web address]
[2017-04-14 08:54] LABS: ABG Base Excess -6.2 MMOL/L (-2.5-2.5); ABG HCO3 17.3 MMOL/L (20-26); ABG Oxygen Saturation 95.5 % (95-100); ABG PH 7.409 (7.35-7.45); ABG PO2 83.6 MM HG (80-95); ABG TCO2 18.2 MMOL/L (23-27)
[2017-04-14] MEDS: metOLazone 5 MG TABLET PO SCH (08:54)
--- NOTE | 2017-04-14 09:52 | Physician Query Form ---
CLICK EDIT DOCUMENT TO SELECT QUERY ANSWER --> OK --> SIGN Sissy Miller RN Clinical Cardiac Cath Lab Manager W) [phone] (f) [phone] [email or web address] PROVIDERS: Make your selection(s) from the choices in EACH section by typing an "x" and enter comments in the comment section. Please use your independent medical judgment in providing your response. This request does not imply that any particular answer is desired or expected. CLINICAL INDICATORS: (Providers should not edit this section) Based on lab results of sodium on admission of 129. Pt. treated with IV fluids of Normal Saline. Sodium increased to 133. Based on the above, could you clarify the appropriate diagnosis, if significant , that supports the above abnormalities and additional evaluation, monitoring, and/or treatment rendered: (x ) Pt. treated for hyponatremia ( ) Pt. not treated for hyponatremia ( ) Other, please specify: ( ) Clinically unable to determine COMMENTS: PLEASE ALSO DOCUMENT RESPONSE IN PROGRESS NOTES AND/OR DISCHARGE SUMMARY Use of terms such as suspected, likely, or probable (associated with a specific diagnosis that is being evaluated, monitored, or treated as if it exists) are acceptable and can be restated in the discharge summary if not ruled out. [facility]
--- NOTE | 2017-04-14 11:29 | Hospitalist Progress Note ---
Assessment and Plan - Time spent with patient Time spent with patient: Less than 30 minutes (1) Diabetes Status: Chronic Current Visit: No Qualifiers: Diabetes mellitus type: type 1 Diabetes mellitus complication status: with kidney complications Diabetes mellitus complication detail: with chronic kidney disease Chronic kidney disease stage: stage 4 (severe) Qualified Code (s): E10.22 - Type 1 diabetes mellitus with diabetic chronic kidney disease; N18.4 - Chronic kidney disease, stage 4 (severe) (2) Respiratory failure Status: Resolved Current Visit: No Qualifiers: Chronicity: acute (3) Systolic CHF, acute on chronic Status: Acute Current Visit: No (4) Cardiac arrest Status: Acute Current Visit: Yes (5) Acute kidney injury superimposed on chronic kidney disease Status: Acute Current Visit: Yes (6) Anoxic brain injury Status: Acute Current Visit: Yes Hospitalist: Subjective Interval history: No acute events overnight. Still requiring mechanical ventilation, being managed by pulmonary. Machine Sneller consult today for initiation of tube feeds. H/H is improved. Chart reviewed, overall consensus is that patient has a very poor prognosis. Remains unresponsive. Renal function continues to worsen. He was changed to DNR over the weekend. Exam - Constitutional Vitals: Period Temp Pulse Resp BP Sys/Post Pulse Ox Last 24 Hr 98.3 F-98.8 F 66-69 9-23 123-160/57-86 98-100 General appearance: normal weight - Head Head exam: Present: normocephalic, atraumatic - ENT ENT exam: Present: normal exam - Neck Neck exam: Present: normal inspection - Respiratory Respiratory exam: Present: clear to auscultation bilaterally. Absent: rhonchi, wheezes - Cardiovascular Cardiovascular exam: Present: regular rate and rhythm - GI/Abdominal GI/Abdominal exam: Present: normal bowel sounds, soft. Absent: tenderness, rebound - Extremities Exam Extremities exam: Present: edema - Back Exam Back exam: Present: normal inspection - Neurological Exam Neurological exam: Present: other (unresponsive) - Skin Skin exam: Present: warm, intact Results - Labs CBC & BMP: 04/14/17 05:05 04/14/17 05:05
--- NOTE | 2017-04-14 15:55 | Nephrology Progress Note ---
Nephrology - PN: Subj Interval history: He remains unresponsive, on ventilator. Blood pressure is now stable. He is not requiring pressors Exam (PN)-Nephrology - Vital Signs Vital signs: Period Temp Pulse Resp BP Sys/Post Pulse Ox Last 24 Hr 98.3 F-98.8 F 65-71 9-23 123-160/57-86 97-100 Exam: General: Sedated on ventilator Cardiovascular: Regular rate and rhythm Lungs: Clear Abdomen: No guarding Extremities: 2+ edema - Lab 04/14/17 05:05 04/14/17 05:05 Most recent lab results ABG pH 7.409 (7.35-7.45) 04/14/17 08:50 ABG pCO2 28.0 MM HG (35-48) L 04/14/17 08:50 ABG pO2 83.6 MM HG (80-95) 04/14/17 08:50 ABG HCO3 17.3 MMOL/L (20-26) L 04/14/17 08:50 ABG O2 Saturation 95.5 % (95-100) 04/14/17 08:50 Calcium 6.6 MG/DL (8.5-10.1) L 04/14/17 05:05 Phosphorus 7.9 MG/DL (2.5-4.9) H 04/13/17 04:00 Magnesium 3.3 MG/DL (1.8-2.4) H 04/14/17 05:05 Assessment and Plan (1) Chronic kidney disease, stage IV (severe) Status: Chronic Assessment and plan: 61-year-old man admitted with: * CRF stage IV. Baseline creatinine mid threes * ARF on CRF. Worsened secondary to hypotension. He likely has ATN. Blood pressure has now improved. Urine output slightly better. * Nephrotic syndrome * Diabetes mellitus * Cardiomyopathy * Cardiac arrest. * Anoxic brain injury. Neurology consulted. Prognosis poor Current Visit: Yes (2) Acute respiratory failure Status: Acute Current Visit: Yes Qualifiers: Respiratory failure complication: hypoxia Qualified Code(s): J96.01 - Acute respiratory failure with hypoxia (3) Cardiac arrest Status: Acute Current Visit: Yes (4) Cellulitis and abscess of face Status: Acute Current Visit: No (5) Cardiomyopathy Status: Chronic Current Visit: No (6) Diabetes Status: Chronic Current Visit: No Qualifiers: Diabetes mellitus type: type 1 Diabetes mellitus complication status: with kidney complications Diabetes mellitus complication detail: with chronic kidney disease Chronic kidney disease stage: stage 4 (severe) Qualified Code (s): E10.22 - Type 1 diabetes mellitus with diabetic chronic kidney disease; N18.4 - Chronic kidney disease, stage 4 (severe) (7) Nephrotic syndrome Status: Chronic Current Visit: No
--- NOTE | 2017-04-14 16:16 | Neurology Progress Note ---
Neurology - PN : Subjective Interval history: Patient is a still unresponsive. No new changes reported. Kidney function is getting worse. EEG reveals alpha coma pattern which is suggestive of severe encephalopathy and anoxic brain injury. Exam (Progress Note) - Constitutional Vitals: Period Temp Pulse Resp BP Sys/Post Pulse Ox Last 24 Hr 98.3 F-98.8 F 65-71 13-23 123-160/57-86 97-100 Exam: GENERAL: Patient is in no acute distress. NECK: Neck is supple. There is no JVD. No carotid bruits present. No thyroid masses. CVS: First and second heart sounds are normal. There is no S3 present. Regular rate and rhythm. RESPIRATORY: Lungs are clear to auscultation without any rales or rhonchi. ABDOMEN: Soft and non-tender. Bowel sounds are present. There is no hepatosplenomegaly. EXT: There is no palpable edema. Peripheral pulses are present. Skin: No rashes Central Nervous system: General: Unresponsive. He is off of any sedation Speech: None Comprehension: None Facial expressions: Normal Cranial Nerves: Pupils are small and nonreactive. Doll's head eye movements are negative. No facial asymmetry seen. Corneals are absent. Motor: Bulk and Tone is normal. Strength cannot be assessed. No withdrawal seen on painful stability Sensory: Cannot be assessed Reflexes: 1+ and symmetrical Cerebellar function: Cannot be assessed Toes: Equivocal Gait: Cannot be assessed Results - Labs CBC & BMP: 04/14/17 05:05 04/14/17 05:05 Assessment and Plan (1) Anoxic brain injury Status: Acute Assessment and plan: Anoxic brain injury secondary to cardiopulmonary arrest. Patient has not shown any signs of improvement in the last 5 days. Chances of getting any meaningful neurological recovery are dismal. Continue current supportive management Current Visit: Yes
--- NOTE | 2017-04-14 20:15 | Electroencephalogram ---
HISTORY: A 61-year-old patient with a history of cardiac arrest and hypoxic encephalopathy. EEG done for 28 minutes. INTRODUCTION: A digital EEG was performed using the standard 10/20 system of electrode placement wi th one channel of EKG monitoring. Photic stimulation is performed. DESCRIPTION OF RECORD: The background is somewhat disorganized, consists of 10-11 hertz low amplitu de bilaterally symmetrical rhythm. Photic stimulation does not elicit a driving response. There ar e no focal, sharp-wave, spike or wave activity seen. Heart rate is 60 beats per minute. IMPRESSION: ABNORMAL EEG DUE TO DIFFUSE ALPHA ACTIVITY CLINICAL CORRELATION: This record is supportive of alpha coma, which could be secondary to post hyp oxic state, metabolic disorders, diffuse AMUSEMENT CENTRE MANAGER insult, or increased intracranial pressure. Alpha coma is primarily seen in the the severe hypoxic encephalopathy. No epileptiform/seizure activity seen. Clinical correlation is suggested.
[2017-04-15] MEDS: INSULIN REGULAR 100 UNIT/ML SUBCUT SCH ×6 (00:44→21:30)
[2017-04-15] MEDS: PIPERACILLIN/TAZOBACTAM 3,375 MG in SODIUM CHLORIDE 0.9% 100 ML IV SCH ×2 (00:45→14:10)
[2017-04-15] MEDS: ALBUTEROL/IPRATROPIUM 3 ML NEB RESP TX SCH ×4 (01:38→19:47)
[2017-04-15] MEDS: HEPARIN DRIP 25,000 UNITS/500 ML PREMIX IV SCH (02:53)
[2017-04-15 03:52] LABS: ABG Base Excess -8.6 MMOL/L (-2.5-2.5); ABG HCO3 17.5 MMOL/L (20-26); ABG Oxygen Saturation 99.3 % (95-100); ABG PCO2 25.9 MM HG (35-48)
[2017-04-15] MEDS: SODIUM CHLORIDE 0.9% 1,000 ML IV SCH (04:26)
[2017-04-15 05:09] LABS: Basophils % 0.5 % (0.0-0.8); Eosinophils # 0.4 10*3/uL (0.0-0.87); Eosinophils % 4.8 % (0.00-10.9); Hematocrit 28.7 VOL% (42.0-52.0); Hemoglobin 9.6 GM/DL (14.0-18.0); Immature Granulocytes % 0.5 %; Immature Granulocytes Absolute 0.04 #; Lymphocytes % 13.2 % (21.2-54.2); Mean Corpuscular HGB Conc 33.4 GM/DL (32-36); Mean Corpuscular Hemoglobin 29 PG (27-34); Mean Corpuscular Volume 85.2 FL (87-102); Mean Platelet Volume 10.4 FL (9.6-12.0); Monocytes # 0.7 10*3/uL (0.11-0.8); Monocytes % 8.8 % (1.7-12.7); NRBC # 0.08 10*3/uL; Neutrophils # 5.7 10*3/uL (1.4-7.4); Neutrophils % 72.2 % (38.7-73.9); Platelet Count 215 T/CUMM (130-400); Red Blood Count 3.37 MC/CUMM (3.8-5.5); Red Cell Distribution Width 17.9 % (9.3-17.3); White Blood Count 7.9 T/CUMM (4-12)
[2017-04-15 05:35] LABS: Calcium 6.4 MG/DL (8.5-10.1); Magnesium 3.4 MG/DL (1.8-2.4); Osmolality,Calculated 301.5 MOS/KG (273-304); Potassium 4.6 MMOL/L (3.5-5.1)
--- NOTE | 2017-04-15 06:32 | XRay Report ---
Exam: XR chest 1V portable Date: 04/15/2017 4:00 AM Indication: Follow-up ventilator Comparison: 04/14/2017 Technical: AP portable Findings: Right IJ catheter is in the right atrium. Endotracheal tube is at the level of aortic knob. Nasogastric tube traverses esophagus. External cardiac leads are present. Patchy interstitial densities are present in the base regions right greater than left with tiny effusions. Degenerative spondylosis change thoracic spine with mild cardiac enlargement. No pneumothorax Impression: 1. Stable position of life-support tubing 2. Persistent interstitial edema and alveolar edema with low-volume effusions. PROCEDURE INTERPRETED AT [facility] DEPARTMENT OF RADIOLOGY Final Report Signed by: Dr. Alfonso Maddox
--- NOTE | 2017-04-15 06:42 | Pulmonology Progress Note ---
Pulmonary - PN: Subj Interval history: This 61-year-old man had a cardiac arrest and has finished the [employer] sun protocol. He remains on the ventilator. He required higher settings of PEEP and FiO2 over the weekend but this morning his PO2 is 264 on 90% oxygen and 15 of PEEP. We can reduce both the FiO2 and PEEP and recheck ABGs this morning. He remains unresponsive. Apparently does have a bit of a gag reflex. Neurology is to review his case and see what they think about prognosis. Family has made him a DO NOT RESUSCITATE. 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 04/14/2017 patient remains unresponsive. Neurologic evaluation has indicated severe hypoxic brain injury. ABGs are improved. Chest x-ray is stable. Will reduce FiO2 and PEEP. Hopefully can start weaning trial soon. His renal function is getting worse with creatinine up to 6.9. Prognosis is grave. Continuing full support at present. 04/15/2017 patient remains unresponsive. ABGs a little better. Will reduce PEEP to 5 cm. Start weaning trials. Renal function getting worse by the day. Chest x-ray looks a little bit wet. Getting saline to try to maintain urine output. Prognosis grave. Exam (Progress Note) - Constitutional Vitals: Period Temp Pulse Resp BP Sys/Post Pulse Ox Last 24 Hr 96.3 F-98.8 F 63-71 2-65 141-174/61-103 97-100 Exam: Patient is unresponsive. Vital signs normal. Pupils small irregular and sluggish. Face symmetrical. Orotracheal tube is in place. Neck is supple. Chest reveals a few rhonchi equal breath sounds. Heart normal rate rhythm no murmurs. Abdomen soft no masses. Extremities no clubbing cyanosis edema. Results - Labs CBC & BMP: 04/15/17 04:30 04/15/17 04:30 Lab Results: I have reviewed the past 24 hour labs - Diagnostic Findings Procedure: Chest x-ray: image reviewed by me (Increased interstitial markings otherwise little change. ET tube good position.) Assessment and Plan (1) Acute respiratory failure Status: Acute Assessment and plan: Patient is on the ventilator 100% oxygen. ABGs look good at present. Will reduce FiO2 to 60%. Certainly cannot start weaning until we see what his mental status is like and that will be after Arctic sun protocol. 04/13/17 ABGs improved. Will reduce FiO2 and PEEP a little. Prognosis is poor. 04/14/2017 ABGs improved. We can reduce both FiO2 and PEEP. Hopefully one would get his PEEP down to 6 we can start weaning. 04/15/2017 ABGs are better. Reducing PEEP. Start weaning. Mental status will guide us with weaning. Current Visit: Yes Qualifiers: Respiratory failure complication: hypoxia Qualified Code(s): J96.01 - Acute respiratory failure with hypoxia (2) Cardiac arrest Status: Acute Assessment and plan: Patient had a cardiac arrest last night. He has known severe cardiomyopathy. Did not have any known electrolyte imbalance. Does have chronic renal failure with a creatinine now around 5. He would be at increased risk for a pulmonary embolism. 04/13/17 it appears that he has had significant brain injury. Await neurologic evaluation. 04/14/2017 and apparent severe hypoxic brain injury. See neurology note 04/15/2017 apparent severe hypoxic brain injury. Current Visit: Yes (3) Chronic renal insufficiency Status: Chronic Assessment and plan: Creatinine has gone up from about 3.7-5 over the last few days. 04/13/17 creatinine up to 5.9 04/14/2017 creatinine is up to 6.9. Will start on some nasogastric feedings and IV fluids. 04/15/2017 creatinine up to 7.5. Defer to nephrology Current Visit: Yes (4) Congestive heart failure Status: Chronic Assessment and plan: Systolic acute on chronic congestive failure due to severe cardiomyopathy. His troponins are not elevated so it does not appear that he had a myocardial infarction as the cause of his arrest last night. 04/13/17 x-ray shows increased interstitial markings consistent with congestive heart failure, but not brigida pulmonary edema. 04/14/2017 does not appear to be in pulmonary edema. 04/15/2017 appears to be developing pulmonary edema. However ABGs are better. IV fluids started yesterday by cardiology. Current Visit: Yes Qualifiers: Congestive heart failure type: unspecified congestive heart failure type Congestive heart failure chronicity: acute on chronic Qualified Code(s): I50.9 - Heart failure, unspecified (5) Cellulitis and abscess of face Status: Acute Assessment and plan: He has actually completed full course of treatment for the cellulitis. We need to be careful about vancomycin with his renal failure. Defer to ENT and nephrology on antibiotics and dosing. Current Visit: No (6) Nephrotic syndrome Status: Chronic Assessment and plan: He has peripheral edema. Low serum protein. Increased risk for DVT/PTED. Current Visit: No (7) Pulmonary embolism Status: Acute Assessment and plan: Perfusion lung scan suggestive of pulmonary embolism. Unable to obtain PE protocol CT scan due to renal failure. Patient is on empiric heparin infusion. 04/14/2017 continuing heparin for suspected pulmonary thromboembolic disease 04/15/2017 patient is on heparin. Current Visit: Yes
[2017-04-15 07:19] LABS: Prealbumin 10.2 MG/DL (20-40)
[2017-04-15] MEDS: ASPIRIN EC 81 MG TABLET PO SCH (08:29)
[2017-04-15] MEDS: metOLazone 5 MG TABLET PO SCH (08:29)
[2017-04-15] MEDS: FUROSEMIDE 40 MG/4 ML VIAL IV SCH (08:30)
[2017-04-15] MEDS: PANTOPRAZOLE 40 MG VIAL IV SCH (08:33)
[2017-04-15] MEDS: DESITIN 4OZ/NYSTATIN 15 GRAM MIXTURE PASTE TOP SCH ×2 (08:38→21:30)
[2017-04-15] MEDS: MINERAL OIL/PETROLATUM OPH OINT 3.5 GM TUBE BOTH EYES SCH ×3 (09:35→21:30)
--- NOTE | 2017-04-15 10:22 | Hospitalist Progress Note ---
Assessment and Plan (1) Diabetes Status: Chronic Current Visit: No Qualifiers: Diabetes mellitus type: type 1 Diabetes mellitus complication status: with kidney complications Diabetes mellitus complication detail: with chronic kidney disease Chronic kidney disease stage: stage 4 (severe) Qualified Code (s): E10.22 - Type 1 diabetes mellitus with diabetic chronic kidney disease; N18.4 - Chronic kidney disease, stage 4 (severe) (2) Respiratory failure Status: Resolved Current Visit: No Qualifiers: Chronicity: acute (3) Systolic CHF, acute on chronic Status: Acute Current Visit: No (4) Cardiac arrest Status: Acute Current Visit: Yes (5) Acute kidney injury superimposed on chronic kidney disease Status: Acute Current Visit: Yes (6) Anoxic brain injury Status: Acute Current Visit: Yes Hospitalist: Subjective Interval history: No acute events overnight. Not much change, remains unresponsive. Renal function continues to worsen, nephrology assisting. Pulmonary assisting with vent weaning. Started on tube feeds. Very poor prognosis. Exam - Constitutional Vitals: Period Temp Pulse Resp BP Sys/Post Pulse Ox Last 24 Hr 96.3 F-98.4 F 63-69 2-65 141-176/66-103 97-100 General appearance: normal weight - Head Head exam: Present: normocephalic, atraumatic - Eye Eye exam: Present: EOMI Pupils: Present: ASHLY - ENT ENT exam: Present: normal exam - Neck Neck exam: Present: normal inspection - Respiratory Respiratory exam: Present: clear to auscultation bilaterally. Absent: rhonchi, wheezes - Cardiovascular Cardiovascular exam: Present: regular rate and rhythm - GI/Abdominal GI/Abdominal exam: Present: normal bowel sounds, soft. Absent: rebound - Extremities Exam Extremities exam: Present: normal inspection - Back Exam Back exam: Present: normal inspection - Neurological Exam Neurological exam: Present: other (unresponsive) - Skin Skin exam: Present: warm, intact Results - Labs CBC & BMP: 04/15/17 04:30 04/15/17 04:30
--- NOTE | 2017-04-15 10:42 | Cardiology Progress Note ---
Juan A Bruner Vanessa, RN, am scribing for, and in the presence of, Dani Hagan MD 10:42. Assessment and Plan - Time spent with patient Time spent with patient: Greater than 30 minutes (1) Cardiomyopathy Status: Chronic Assessment and plan: Severe cardiomyopathy with ejection fraction 20%. Current Visit: No (2) Acute respiratory failure Status: Acute Assessment and plan: Intubated with mechanical ventilation. Managed per pulmonology. Current Visit: Yes Qualifiers: Respiratory failure complication: hypoxia Qualified Code(s): J96.01 - Acute respiratory failure with hypoxia (3) Cardiopulmonary arrest Status: Acute Current Visit: Yes (4) Chronic kidney disease, stage IV (severe) Status: Chronic Assessment and plan: Worsening renal failure s/p cardiac arrest. He is being followed and managed per nephrology. Noted he is not a candidate for dialysis. Current Visit: Yes Cardiology - PN: Subj Interval history: PRIMARY POLISHER ALUMINUM: DR. JACKY TINAJERO PCP: [facility] Mr. Mantilla is a 61 year old male, patient of Dr. Tinajero. He has a history of congestive heart failure, dyslipidemia, diabetes, hypertension, cardiomyopathy, chronic renal insufficiency stage IV. He was transferred to [facility] ED on 04/09 status post code. Patient was being housed at [facility] when he coded and was apparently asystole for an extended period of time before he was intubated and prior to arriving in our ED. Experiencced cardiac arrest once in [facility]. He was intubated, placed on an Epinephrine infusion, stabilized, and transferred to the ICU. We were consulted to see him. Patient was initiated on hypothermia protocol with Arctic Sun to help prevent hypoxic brain injury and multiple IV vasopressors. Vasopressors have been weaned and he is on IV Heparin. Patient has finished warming process hypothermia process and remains unresponsive still. Code Status has now been changed to DO NOT RESCUSCITATE. He is being followed by pulmonology. Nephrology and neurology have been consulted to see him. He was previously hospitalized at [facility] a little over a month ago with acute respiratory failure, chronic renal failure, and nephrotic syndrome and we were following him at that time. During the previous admission, he required mechanical ventilation for several days. He was found to have a severe cardiomyopathy with ejection fraction 20%, severe global hypokinesis, grade 3 diastolic dysfunction, mild pulmonary hypertension, mild biatrial enlargement, mild pulmonic valve insufficiency. He was weaned off the ventilator and eventually improved enough [facility] for further rehab and IV antibiotics for his cheek infection with MRSA. APRIL 15, 2017: Patient remains in ICU this morning. He is intubated, doing CPAP trial currently , remains unresponsive with exception to withdrawal from painful stimuli. Patient has been evaluated by neurology. EEG revealed pattern consistent with severe encephalopathy and anoxic brain injury. Creatinine continues to increase , up to 7.5. Gentle IV hydration in place, IV Lasix being given this morning. Mg + 3.4, K+ 4.6. Sinus rhythm, pulse rate 60s. BP stable, not requiring vasopessors. We are attempting extubation. Prognosis is dismal and family has been made aware on multiple occasions. Exam (Progress Note) - Constitutional Vitals: Period Temp Pulse Resp BP Sys/Post Pulse Ox Last 24 Hr 96.3 F-98.4 F 63-69 2-65 141-174/66-103 97-100 Exam: Gen. appearance: Patient is orally intubated with mechanical ventilation HEENT: Orally intubated., Pupils sluggish Lungs: Quite clear anteriorly. No wheeze, rhonchi. Cardiovascular: regular rate and rhythm. No gross murmur. Abdomen: Soft diminished bowel sounds. No mass Extremities: Diffuse and generalized edema Neurologic: Withdraws from painful stimuli. no purposeful response. Skin: Warm, dry. Result/EKG - Labs CBC & BMP: 04/15/17 04:30 04/15/17 04:30 Lab Results: I have reviewed the past 24 hour labs Labs: Laboratory Results - last 24 hr 04/13/17 04/14/17 04/14/17 23:16 05:02 07:02 WBC RBC Hgb Hct MCV MCH MCHC RDW Plt Count MPV Neut % (Auto) Lymph % (Auto) Mobile % (Auto) Eos % (Auto) Baso % (Auto) Neut # (Auto) Lymph # (Auto) Mobile # (Auto) Eos # (Auto) Baso # (Auto) Immature Gran % Nucleated RBC % Immature Gran # Nucleated RBCs # Circ Anticoag PTT ABG pH ABG pCO2 ABG pO2 ABG HCO3 ABG Total CO2 ABG O2 Saturation ABG Base Excess Sodium Potassium Chloride Carbon Dioxide Anion Gap BUN Creatinine GFR Calculation BUN/Creatinine Ratio Glucose POC Glucose 185 H 169 H 155 H Calculated Osmolality Calcium Phosphorus Magnesium Prealbumin 04/14/17 04/14/17 04/14/17 11:25 11:33 16:26 WBC RBC Hgb Hct MCV MCH MCHC RDW Plt Count MPV Neut % (Auto) Lymph % (Auto) Mobile % (Auto) Eos % (Auto) Baso % (Auto) Neut # (Auto) Lymph # (Auto) Mobile # (Auto) Eos # (Auto) Baso # (Auto) Immature Gran % Nucleated RBC % Immature Gran # Nucleated RBCs # Circ Anticoag PTT 62.7 H ABG pH ABG pCO2 ABG pO2 ABG HCO3 ABG Total CO2 ABG O2 Saturation ABG Base Excess Sodium Potassium Chloride Carbon Dioxide Anion Gap BUN Creatinine GFR Calculation BUN/Creatinine Ratio Glucose POC Glucose 188 H 205 H Calculated Osmolality Calcium Phosphorus Magnesium Prealbumin 04/14/17 04/14/17 04/14/17 16:40 20:25 23:52 WBC RBC Hgb Hct MCV MCH MCHC RDW Plt Count MPV Neut % (Auto) Lymph % (Auto) Mobile % (Auto) Eos % (Auto) Baso % (Auto) Neut # (Auto) Lymph # (Auto) Mobile # (Auto) Eos # (Auto) Baso # (Auto) Immature Gran % Nucleated RBC % Immature Gran # Nucleated RBCs # Circ Anticoag PTT 58.8 H ABG pH ABG pCO2 ABG pO2 ABG HCO3 ABG Total CO2 ABG O2 Saturation ABG Base Excess Sodium Potassium Chloride Carbon Dioxide Anion Gap BUN Creatinine GFR Calculation BUN/Creatinine Ratio Glucose POC Glucose 203 H 266 H Calculated Osmolality Calcium Phosphorus Magnesium Prealbumin 04/15/17 04/15/17 04/15/17 00:00 03:30 04:19 WBC RBC Hgb Hct MCV MCH MCHC RDW Plt Count MPV Neut % (Auto) Lymph % (Auto) Mobile % (Auto) Eos % (Auto) Baso % (Auto) Neut # (Auto) Lymph # (Auto) Mobile # (Auto) Eos # (Auto) Baso # (Auto) Immature Gran % Nucleated RBC % Immature Gran # Nucleated RBCs # Circ Anticoag PTT 75.2 H D ABG pH 7.380 ABG pCO2 25.9 L ABG pO2 142.0 H ABG HCO3 17.5 L ABG Total CO2 14.0 L ABG O2 Saturation 99.3 ABG Base Excess -8.6 L Sodium Potassium Chloride Carbon Dioxide Anion Gap BUN Creatinine GFR Calculation BUN/Creatinine Ratio Glucose POC Glucose 250 H Calculated Osmolality Calcium Phosphorus Magnesium Prealbumin 04/15/17 04/15/17 04/15/17 04:30 04:30 04:30 WBC 7.9 RBC 3.37 L Hgb 9.6 L Hct 28.7 L MCV 85.2 L MCH 29 MCHC 33.4 RDW 17.9 H Plt Count 215 MPV 10.4 Neut % (Auto) 72.2 Lymph % (Auto) 13.2 L Mobile % (Auto) 8.8 Eos % (Auto) 4.8 Baso % (Auto) 0.5 Neut # (Auto) 5.7 Lymph # (Auto) 1.0 L Mobile # (Auto) 0.7 Eos # (Auto) 0.4 Baso # (Auto) 0.0 Immature Gran % 0.5 Nucleated RBC % 1.0 Immature Gran # 0.04 Nucleated RBCs # 0.08 Circ Anticoag PTT ABG pH ABG pCO2 ABG pO2 ABG HCO3 ABG Total CO2 ABG O2 Saturation ABG Base Excess Sodium 132 L Potassium 4.6 Chloride 97 L Carbon Dioxide 18 L Anion Gap 21.6 H BUN 98 H Creatinine 7.50 H GFR Calculation 9 BUN/Creatinine Ratio 13.00 Glucose 230 H POC Glucose Calculated Osmolality 301.5 Calcium 6.4 L Phosphorus 8.0 H Magnesium 3.4 H Prealbumin 10.2 L 04/15/17 04:30 WBC RBC Hgb Hct MCV MCH MCHC RDW Plt Count MPV Neut % (Auto) Lymph % (Auto) Mobile % (Auto) Eos % (Auto) Baso % (Auto) Neut # (Auto) Lymph # (Auto) Mobile # (Auto) Eos # (Auto) Baso # (Auto) Immature Gran % Nucleated RBC % Immature Gran # Nucleated RBCs # Circ Anticoag PTT 77.0 H ABG pH ABG pCO2 ABG pO2 ABG HCO3 ABG Total CO2 ABG O2 Saturation ABG Base Excess Sodium Potassium Chloride Carbon Dioxide Anion Gap BUN Creatinine GFR Calculation BUN/Creatinine Ratio Glucose POC Glucose Calculated Osmolality Calcium Phosphorus Magnesium Prealbumin - EKG EKG results: interpreted by me, no acute changes EKG shows: sinus rhythm Bentley Bruner Wesley, MD, personally performed the services described in this documentation, ascribed by Shania Velazco RN in my presence, and it is both accurate and complete .
--- NOTE | 2017-04-15 11:31 | Nephrology Progress Note ---
Nephrology - PN: Subj Interval history: He remains unresponsive, on the ventilator. Blood pressure is stable Exam (PN)-Nephrology - Vital Signs Vital signs: Period Temp Pulse Resp BP Sys/Post Pulse Ox Last 24 Hr 96.3 F-98.4 F 63-69 2-65 141-176/66-103 97-100 Exam: Gen.: Nonresponsive. On ventilator Neck: Supple. No JVD or bruit. Cardiovascular: Regular rate and rhythm. No murmur rub or gallop Lungs: Clear Abdomen: Soft. Nontender. Positive bowel sounds. No organomegaly Extremities: 1-2+ edema - Lab 04/15/17 04:30 04/15/17 04:30 Most recent lab results ABG pH 7.380 (7.35-7.45) 04/15/17 03:30 ABG pCO2 25.9 MM HG (35-48) L 04/15/17 03:30 ABG pO2 142.0 MM HG (80-95) H 04/15/17 03:30 ABG HCO3 17.5 MMOL/L (20-26) L 04/15/17 03:30 ABG O2 Saturation 99.3 % (95-100) 04/15/17 03:30 Calcium 6.4 MG/DL (8.5-10.1) L 04/15/17 04:30 Phosphorus 8.0 MG/DL (2.5-4.9) H 04/15/17 04:30 Magnesium 3.4 MG/DL (1.8-2.4) H 04/15/17 04:30 Assessment and Plan (1) Chronic kidney disease, stage IV (severe) Status: Chronic Assessment and plan: 61-year-old man admitted with: * CRF stage IV. Baseline creatinine mid threes * ARF on CRF. Probable ATN. Urine output has improved. Fluid balance was slightly negative past 24 hours. He is not a good candidate for dialysis because of neurologic prognosis. * Nephrotic syndrome * Diabetes mellitus * Cardiomyopathy * Cardiac arrest. * Anoxic brain injury. Neurology consulted. Prognosis poor Current Visit: Yes (2) Acute respiratory failure Status: Acute Current Visit: Yes Qualifiers: Respiratory failure complication: hypoxia Qualified Code(s): J96.01 - Acute respiratory failure with hypoxia (3) Cardiac arrest Status: Acute Current Visit: Yes (4) Cellulitis and abscess of face Status: Acute Current Visit: No (5) Cardiomyopathy Status: Chronic Current Visit: No (6) Diabetes Status: Chronic Current Visit: No Qualifiers: Diabetes mellitus type: type 1 Diabetes mellitus complication status: with kidney complications Diabetes mellitus complication detail: with chronic kidney disease Chronic kidney disease stage: stage 4 (severe) Qualified Code (s): E10.22 - Type 1 diabetes mellitus with diabetic chronic kidney disease; N18.4 - Chronic kidney disease, stage 4 (severe) (7) Nephrotic syndrome Status: Chronic Current Visit: No
[2017-04-15] MEDS: hydrALAZINE 25 MG TABLET PO PRN (14:08)
--- NOTE | 2017-04-15 14:50 | Neurology Progress Note ---
Neurology - PN : Subjective Interval history: Mr. Mantilla continued to remain same neurologically. No purposeful movement seen. Not following commands. Not waking up. No spontaneous movement seen. No movement seen on deep painful stimuli. Exam (Progress Note) - Constitutional Vitals: Period Temp Pulse Resp BP Sys/Post Pulse Ox Last 24 Hr 96.3 F-98.3 F 63-68 2-65 141-176/66-103 97-100 Exam: GENERAL: Patient is in no acute distress. NECK: Neck is supple. There is no JVD. No carotid bruits present. No thyroid masses. CVS: First and second heart sounds are normal. There is no S3 present. Regular rate and rhythm. RESPIRATORY: Lungs are clear to auscultation without any rales or rhonchi. ABDOMEN: Soft and non-tender. Bowel sounds are present. There is no hepatosplenomegaly. EXT: There is no palpable edema. Peripheral pulses are present. Skin: No rashes Central Nervous system: General: Unresponsive. He is off of any sedation Speech: None Comprehension: None Facial expressions: Normal Cranial Nerves: Pupils are small and nonreactive. Doll's head eye movements are negative. No facial asymmetry seen. Corneals are absent. Motor: Bulk and Tone is normal. Strength cannot be assessed. No withdrawal seen on painful stability Sensory: Cannot be assessed Reflexes: 1+ and symmetrical Cerebellar function: Cannot be assessed Toes: Equivocal Gait: Cannot be assessed Results - Labs CBC & BMP: 04/15/17 04:30 04/15/17 04:30 Assessment and Plan (1) Anoxic brain injury Status: Acute Assessment and plan: Anoxic brain injury secondary to cardiopulmonary arrest. Patient has not shown any signs of improvement in the last 6-7 days. Chances of getting any meaningful neurological recovery are extremely minimal to none. Discussed with the family at length again. Answered all the questions to their satisfaction. Discussed the prognosis with them. Continue current supportive management as per family's request. He probably will need tract placement followed by LTAC placement. Sign off please call as needed Current Visit: Yes
--- NOTE | 2017-04-15 15:39 | CT Report ---
CT brain Indication: Altered mental status Comparison: 07 March 2017 Technique: Axial CT imaging of the brain is performed without contrast with 3 mm increments. Findings: There is subtle decreased density and loss of meeks-white matter differentiation more prominent in the left parietal lobe and left occipital lobes. Similar changes are present and the right cerebral hemisphere and cerebellar hemispheres to slightly lesser degree. There is mild sulcal effacement. No other evidence of hemorrhage, mass mass effect midline shift or acute infarct seen. The ventricles and cisterns are normal in caliber. No cranial or skull base abnormality is identified. Impression: Subtle decreased density in the white matter with loss of meeks-white matter differentiation, most prominent in the left parietal lobe and left occipital lobe but also seen in the remaining brain, could indicate cerebral edema. This CT exam was performed using one or more the following dose reduction techniques: Automated exposure control, adjustment of the MA and/or KV according to patient size, or use of iterative reconstruction technique. . PROCEDURE INTERPRETED AT [facility] DEPARTMENT OF RADIOLOGY Final Report Signed by: Dr. Carlos Eduardo Matamoros
[2017-04-16] MEDS: ALBUTEROL/IPRATROPIUM 3 ML NEB RESP TX SCH ×4 (00:34→19:31)
[2017-04-16] MEDS: INSULIN REGULAR 100 UNIT/ML SUBCUT SCH ×6 (01:14→21:41)
[2017-04-16] MEDS: PIPERACILLIN/TAZOBACTAM 3,375 MG in SODIUM CHLORIDE 0.9% 100 ML IV SCH ×2 (01:14→13:32)
[2017-04-16 03:14] LABS: ABG Base Excess -7.7 MMOL/L (-2.5-2.5); ABG HCO3 18.2 MMOL/L (20-26); ABG Oxygen Saturation 96.3 % (95-100); ABG PCO2 28.4 MM HG (35-48); ABG PH 7.371 (7.35-7.45); ABG PO2 87.8 MM HG (80-95); ABG TCO2 14.8 MMOL/L (23-27); Allen Test Positive; Pt O2 Delivery Device Ventilator
[2017-04-16 03:48] LABS: Basophils % 0.3 % (0.0-0.8); Eosinophils # 0.2 10*3/uL (0.0-0.87); Hematocrit 29.6 VOL% (42.0-52.0); Hemoglobin 9.9 GM/DL (14.0-18.0); Immature Granulocytes % 0.3 %; Immature Granulocytes Absolute 0.03 #; Lymphocytes # 0.7 10*3/uL (1.4-4.0); Lymphocytes % 7.7 % (21.2-54.2); Mean Corpuscular HGB Conc 33.4 GM/DL (32-36); Mean Corpuscular Hemoglobin 29 PG (27-34); Mean Corpuscular Volume 85.3 FL (87-102); Mean Platelet Volume 10.1 FL (9.6-12.0); Monocytes # 0.5 10*3/uL (0.11-0.8); Monocytes % 5.4 % (1.7-12.7); NRBC # 0.06 10*3/uL; Neutrophils # 8.1 10*3/uL (1.4-7.4); Neutrophils % 84.3 % (38.7-73.9); Platelet Count 187 T/CUMM (130-400); Red Blood Count 3.47 MC/CUMM (3.8-5.5); Red Cell Distribution Width 17.9 % (9.3-17.3); White Blood Count 9.6 T/CUMM (4-12)
[2017-04-16 04:16] LABS: Calcium 6.4 MG/DL (8.5-10.1); Magnesium 3.3 MG/DL (1.8-2.4); Osmolality,Calculated 301.4 MOS/KG (273-304); Potassium 4.6 MMOL/L (3.5-5.1)
--- NOTE | 2017-04-16 06:26 | Pulmonology Progress Note ---
Pulmonary - PN: Subj Interval history: This 61-year-old man had a cardiac arrest and has finished the [facility] protocol. He remains on the ventilator. He required higher settings of PEEP and FiO2 over the weekend but this morning his PO2 is 264 on 90% oxygen and 15 of PEEP. We can reduce both the FiO2 and PEEP and recheck ABGs this morning. He remains unresponsive. Apparently does have a bit of a gag reflex. Neurology is to review his case and see what they think about prognosis. Family has made him a DO NOT RESUSCITATE. 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 04/14/2017 patient remains unresponsive. Neurologic evaluation has indicated severe hypoxic brain injury. ABGs are improved. Chest x-ray is stable. Will reduce FiO2 and PEEP. Hopefully can start weaning trial soon. His renal function is getting worse with creatinine up to 6.9. Prognosis is grave. Continuing full support at present. 04/15/2017 patient remains unresponsive. ABGs a little better. Will reduce PEEP to 5 cm. Start weaning trials. Renal function getting worse by the day. Chest x-ray looks a little bit wet. Getting saline to try to maintain urine output. Prognosis grave. 04/16/2017 bloody secretions have come from his endotracheal tube. He has a right lower lobe infiltrate. He has grown Klebsiella from his sputum. He is on Zosyn for that already. Remains unresponsive. Prognosis is poor. Creatinine is 7.7. Patient has end-stage cardiomyopathy and is status post cardiac arrest. He has severe hypoxic brain injury. Exam (Progress Note) - Constitutional Vitals: Period Temp Pulse Resp BP Sys/Post Pulse Ox Last 24 Hr 96.4 F-97.8 F 60-68 12-33 109-176/73-94 95-100 Exam: Patient is unresponsive. Vital signs normal. He does have some respiratory effort. He does not respond to painful stimulus. Pupils small irregular and sluggish. Face symmetrical. Orotracheal tube is in place. Neck is supple. Chest reveals a few rhonchi equal breath sounds. Heart normal rate rhythm no murmurs. Abdomen soft no masses. Extremities no clubbing cyanosis edema. Results - Labs CBC & BMP: 04/16/17 03:45 04/16/17 03:45 Lab Results: I have reviewed the past 24 hour labs - Diagnostic Findings Procedure: Chest x-ray: image reviewed by me (Bilateral infiltrates worse at the right base.) Assessment and Plan (1) Acute respiratory failure Status: Acute Assessment and plan: Patient is on the ventilator 100% oxygen. ABGs look good at present. Will reduce FiO2 to 60%. Certainly cannot start weaning until we see what his mental status is like and that will be after [facility] protocol. 04/13/17 ABGs improved. Will reduce FiO2 and PEEP a little. Prognosis is poor. 04/14/2017 ABGs improved. We can reduce both FiO2 and PEEP. Hopefully one would get his PEEP down to 6 we can start weaning. 04/15/2017 ABGs are better. Reducing PEEP. Start weaning. Mental status will guide us with weaning. 04/16/2017 patient starting to do CPAP. Mental status will [place] where to go later. If we are to continue long-term mechanical ventilatory support and would likely need a tracheostomy in a few days. Current Visit: Yes Qualifiers: Respiratory failure complication: hypoxia Qualified Code(s): J96.01 - Acute respiratory failure with hypoxia (2) Cardiac arrest Status: Acute Assessment and plan: Patient had a cardiac arrest last night. He has known severe cardiomyopathy. Did not have any known electrolyte imbalance. Does have chronic renal failure with a creatinine now around 5. He would be at increased risk for a pulmonary embolism. 04/13/17 it appears that he has had significant brain injury. Await neurologic evaluation. 04/14/2017 and apparent severe hypoxic brain injury. See neurology note 04/15/2017 apparent severe hypoxic brain injury. 04/16/2017 continues to exhibit signs of severe hypoxic brain injury. Current Visit: Yes (3) Chronic renal insufficiency Status: Chronic Assessment and plan: Creatinine has gone up from about 3.7-5 over the last few days. 04/13/17 creatinine up to 5.9 04/14/2017 creatinine is up to 6.9. Will start on some nasogastric feedings and IV fluids. 04/15/2017 creatinine up to 7.5. Defer to nephrology 04/16/2017 creatinine is 7.7. Perhaps it's levelling off. Current Visit: Yes (4) Congestive heart failure Status: Chronic Assessment and plan: Systolic acute on chronic congestive failure due to severe cardiomyopathy. His troponins are not elevated so it does not appear that he had a myocardial infarction as the cause of his arrest last night. 04/13/17 x-ray shows increased interstitial markings consistent with congestive heart failure, but not brigida pulmonary edema. 04/14/2017 does not appear to be in pulmonary edema. 04/15/2017 appears to be developing pulmonary edema. However ABGs are better. IV fluids started yesterday by cardiology. 04/16/2017 this lobe infiltrate. Difficult to tell him what this is heart failure, which may be the Klebsiella pneumonia. He is on Zosyn. Current Visit: Yes Qualifiers: Congestive heart failure type: unspecified congestive heart failure type Congestive heart failure chronicity: acute on chronic Qualified Code(s): I50.9 - Heart failure, unspecified (5) Cellulitis and abscess of face Status: Acute Assessment and plan: He has actually completed full course of treatment for the cellulitis. We need to be careful about vancomycin with his renal failure. Defer to ENT and nephrology on antibiotics and dosing. Current Visit: No (6) Nephrotic syndrome Status: Chronic Assessment and plan: He has peripheral edema. Low serum protein. Increased risk for DVT/PTED. Current Visit: No (7) Pulmonary embolism Status: Acute Assessment and plan: Perfusion lung scan suggestive of pulmonary embolism. Unable to obtain PE protocol CT scan due to renal failure. Patient is on empiric heparin infusion. 04/14/2017 continuing heparin for suspected pulmonary thromboembolic disease 04/15/2017 patient is on heparin. 04/16/2017 his perfusion lung scan was suggestive of pulmonary embolism. We do not have a definitive diagnosis. He has had some pulmonary hemorrhage. I stop the heparin yesterday. Difficult situation. Current Visit: Yes
--- NOTE | 2017-04-16 06:58 | XRay Report ---
Exam: XR chest 1V portable Date: 04/16/2017 4:00 AM Indication: Respiratory failure follow-up Comparison: 04/15/2017 Technical: AP portable Findings: Endotracheal tube is at the level just above the domenic. Nasogastric traverses esophagus. Cardiomegaly is present. Low volume effusions and alveolar edema are present bilaterally with some patchy interstitial densities in the left suprahilar region. ASVD is present. External cardiac leads are noted. No pneumothorax. Right IJ catheter is faintly demonstrated in the right atrium. Impression: 1. Stable position of life-support tubing 2. Persistent bilateral infiltrates and effusions 3. Degenerative spondylosis change thoracic spine and ASVD. PROCEDURE INTERPRETED AT [facility] DEPARTMENT OF RADIOLOGY Final Report Signed by: Dr. Alfonso Maddox
[2017-04-16] MEDS: metOLazone 5 MG TABLET PO SCH (08:44)
[2017-04-16] MEDS: ASPIRIN EC 81 MG TABLET PO SCH (08:44)
[2017-04-16] MEDS: hydrALAZINE 25 MG TABLET PO PRN ×2 (08:45→18:35)
[2017-04-16] MEDS: PANTOPRAZOLE 40 MG VIAL IV SCH (08:45)
[2017-04-16] MEDS: FUROSEMIDE 40 MG/4 ML VIAL IV SCH (08:47)
[2017-04-16] MEDS: CEFEPIME IV SCH (08:50)
[2017-04-16] MEDS: SODIUM CHLORIDE 0.9% IV SCH (08:50)
[2017-04-16] MEDS: MINERAL OIL/PETROLATUM OPH OINT 3.5 GM TUBE BOTH EYES SCH ×3 (08:54→21:41)
[2017-04-16] MEDS: DESITIN 4OZ/NYSTATIN 15 GRAM MIXTURE PASTE TOP SCH ×2 (08:54→21:41)
--- NOTE | 2017-04-16 10:15 | Cardiology Progress Note ---
Juan A Bruner Vanessa, RN, am scribing for, and in the presence of, Dani Hagan MD 10:15. Assessment and Plan - Time spent with patient Time spent with patient: Greater than 30 minutes (1) Cardiomyopathy Status: Chronic Assessment and plan: Severe cardiomyopathy with ejection fraction 20%. Current Visit: No (2) Acute respiratory failure Status: Acute Assessment and plan: Intubated with mechanical ventilation. Managed per pulmonology. Current Visit: Yes Qualifiers: Respiratory failure complication: hypoxia Qualified Code(s): J96.01 - Acute respiratory failure with hypoxia (3) Cardiopulmonary arrest Status: Acute Current Visit: Yes (4) Chronic kidney disease, stage IV (severe) Status: Chronic Assessment and plan: Worsening renal failure s/p cardiac arrest. He is being followed and managed per nephrology. Noted he is not a candidate for dialysis. Current Visit: Yes Cardiology - PN: Subj Interval history: PRIMARY MEDICAL CODER: DR. JACKY TINAJERO PCP: [facility] Mr. Mantilla is a 61 year old male, patient of Dr. Tinajero. He has a history of congestive heart failure, dyslipidemia, diabetes, hypertension, cardiomyopathy, chronic renal insufficiency stage IV. He was transferred to [facility] ED on 04/09 status post code. Patient was being housed at [facility] when he coded and was apparently asystole for an extended period of time before he was intubated and prior to arriving in our ED. Experiencced cardiac arrest once in [place] ED. He was intubated, placed on an Epinephrine infusion, stabilized, and transferred to the ICU. We were consulted to see him. Patient did complete hypothermia protocol with [place]. EEG revealed patterns consistent with severe encephalopathy and anoxic brain injury. Code Status has now been changed to DO NOT RESCUSCITATE. He is being followed by pulmonology. Nephrology and neurology have been consulted to see him. He was previously hospitalized at [facility] a little over a month ago with acute respiratory failure, chronic renal failure, and nephrotic syndrome and we were following him at that time. During the previous admission, he required mechanical ventilation for several days. He was found to have a severe cardiomyopathy with ejection fraction 20%, severe global hypokinesis, grade 3 diastolic dysfunction, mild pulmonary hypertension, mild biatrial enlargement, mild pulmonic valve insufficiency. He was weaned off the ventilator and eventually improved enough to transfer [facility] for further rehab and IV antibiotics for his cheek infection with MRSA. APRIL 16 UPDATE: Mr. Mantilla remains intubated in the ICU this morning. No sedation required, and he remains unresponsive with exception of some spontaneous withdrawal from painful stimuli. Patient does have an anoxic brain injury. CPAP trials progressing fairly well per notes. Creatinine continues to elevate, 7.7 today. Output continues to decline despite IV diuresis. Labs reviewed. WBC 9,600. H/H 9.9 & 39.6. K+ 4.6. Mg+ 3.3. Regular rhythm with pulse rates 50s-60s this morning. SBP slightly increased 140-155 mmHg range. Dismal prognosis. Continue support and comfort measures. Exam (Progress Note) - Constitutional Vitals: Period Temp Pulse Resp BP Sys/Post Pulse Ox Last 24 Hr 96.4 F-97.8 F 58-68 12-33 109-176/73-94 95-100 Exam: Gen. appearance: Patient is orally intubated with mechanical ventilation HEENT: Orally intubated., Pupils sluggish Lungs: Quite clear anteriorly. No wheeze, rhonchi. Cardiovascular: regular rate and rhythm. No gross murmur. Abdomen: Soft diminished bowel sounds. No mass Extremities: Diffuse and generalized edema Neurologic: Withdraws from painful stimuli. no purposeful response. Skin: Warm, dry. Result/EKG - Labs CBC & BMP: 04/16/17 03:45 04/16/17 03:45 Lab Results: I have reviewed the past 24 hour labs Labs: Laboratory Results - last 24 hr 04/15/17 04/15/17 04/15/17 08:16 11:26 16:39 WBC RBC Hgb Hct MCV MCH MCHC RDW Plt Count MPV Neut % (Auto) Lymph % (Auto) [place] % (Auto) Eos % (Auto) Baso % (Auto) Neut # (Auto) Lymph # (Auto) [place] # (Auto) Eos # (Auto) Baso # (Auto) Immature Gran % Nucleated RBC % Immature Gran # Nucleated RBCs # ABG pH ABG pCO2 ABG pO2 ABG HCO3 ABG Total CO2 ABG O2 Saturation ABG Base Excess FiO2 Sodium Potassium Chloride Carbon Dioxide Anion Gap BUN Creatinine GFR Calculation BUN/Creatinine Ratio Glucose POC Glucose 251 H 200 H 170 H Calculated Osmolality Calcium Magnesium 04/15/17 04/16/17 04/16/17 21:20 00:29 02:50 WBC RBC Hgb Hct MCV MCH MCHC RDW Plt Count MPV Neut % (Auto) Lymph % (Auto) Motley % (Auto) Eos % (Auto) Baso % (Auto) Neut # (Auto) Lymph # (Auto) Motley # (Auto) Eos # (Auto) Baso # (Auto) Immature Gran % Nucleated RBC % Immature Gran # Nucleated RBCs # ABG pH 7.371 ABG pCO2 28.4 L ABG pO2 87.8 ABG HCO3 18.2 L ABG Total CO2 14.8 L ABG O2 Saturation 96.3 ABG Base Excess -7.7 L FiO2 50.00 Sodium Potassium Chloride Carbon Dioxide Anion Gap BUN Creatinine GFR Calculation BUN/Creatinine Ratio Glucose POC Glucose 192 H 185 H Calculated Osmolality Calcium Magnesium 04/16/17 04/16/17 04/16/17 03:45 03:45 07:56 WBC 9.6 RBC 3.47 L Hgb 9.9 L Hct 29.6 L MCV 85.3 L MCH 29 MCHC 33.4 RDW 17.9 H Plt Count 187 MPV 10.1 Neut % (Auto) 84.3 H Lymph % (Auto) 7.7 L Motley % (Auto) 5.4 Eos % (Auto) 2.0 Baso % (Auto) 0.3 Neut # (Auto) 8.1 H Lymph # (Auto) 0.7 L Motley # (Auto) 0.5 Eos # (Auto) 0.2 Baso # (Auto) 0.0 Immature Gran % 0.3 Nucleated RBC % 0.6 Immature Gran # 0.03 Nucleated RBCs # 0.06 ABG pH ABG pCO2 ABG pO2 ABG HCO3 ABG Total CO2 ABG O2 Saturation ABG Base Excess FiO2 Sodium 133 L Potassium 4.6 Chloride 98 Carbon Dioxide 19 L Anion Gap 20.6 H BUN 102 H Creatinine 7.70 H GFR Calculation 1 BUN/Creatinine Ratio 13.00 Glucose 174 H POC Glucose 172 H Calculated Osmolality 301.4 Calcium 6.4 L Magnesium 3.3 H - Diagnostic Findings Procedure: Chest x-ray: image reviewed by me, report reviewed by me - EKG EKG results: interpreted by me, no acute changes EKG shows: sinus rhythm I, Dani Hagan MD, personally performed the services described in this documentation, ascribed by Shania Velazco RN in my presence, and it is both accurate and complete .
--- NOTE | 2017-04-16 12:56 | Hospitalist Progress Note ---
Assessment and Plan (1) Diabetes Status: Chronic Current Visit: No Qualifiers: Diabetes mellitus type: type 1 Diabetes mellitus complication status: with kidney complications Diabetes mellitus complication detail: with chronic kidney disease Chronic kidney disease stage: stage 4 (severe) Qualified Code (s): E10.22 - Type 1 diabetes mellitus with diabetic chronic kidney disease; N18.4 - Chronic kidney disease, stage 4 (severe) (2) Respiratory failure Status: Resolved Current Visit: No Qualifiers: Chronicity: acute (3) Systolic CHF, acute on chronic Status: Acute Current Visit: No (4) Cardiac arrest Status: Acute Current Visit: Yes (5) Acute kidney injury superimposed on chronic kidney disease Status: Acute Current Visit: Yes (6) Anoxic brain injury Status: Acute Current Visit: Yes Hospitalist: Subjective Interval history: Yesterday patient noted to blood coming from his ET tube. Heparin has been discontinued. No changes in his mental status, remains unresponsive. Creatinine only a little increased today. Pulmonary working on vent weaning. Exam - Constitutional Vitals: Period Temp Pulse Resp BP Sys/Post Pulse Ox Last 24 Hr 96.9 F-97.8 F 45-66 12-25 109-167/73-91 95-100 General appearance: normal weight - Head Head exam: Present: normocephalic, atraumatic - Eye Eye exam: Present: EOMI Pupils: Present: ASHLY - ENT ENT exam: Present: normal exam - Neck Neck exam: Present: normal inspection - Respiratory Respiratory exam: Present: clear to auscultation bilaterally. Absent: rhonchi, wheezes - Cardiovascular Cardiovascular exam: Present: regular rate and rhythm - GI/Abdominal GI/Abdominal exam: Present: normal bowel sounds, soft. Absent: tenderness, rebound - Extremities Exam Extremities exam: Present: normal inspection - Back Exam Back exam: Present: normal inspection - Neurological Exam Neurological exam: Present: other (unresponsive) - Skin Skin exam: Present: warm, intact Results - Labs CBC & BMP: 04/16/17 03:45 04/16/17 03:45
--- NOTE | 2017-04-16 15:28 | Nephrology Progress Note ---
Nephrology - PN: Subj Interval history: He remains unresponsive on the ventilator. Blood pressure stable. Urine output improved Exam (PN)-Nephrology - Vital Signs Vital signs: Period Temp Pulse Resp BP Sys/Post Pulse Ox Last 24 Hr 96.2 F-97.8 F 55-66 12-25 109-167/71-91 95-100 Exam: Gen.: Unresponsive on ventilator ENT: Pupils equal round reactive to light. Intubated Neck: Supple. No JVD or bruit. Cardiovascular: Regular rate and rhythm. No murmur rub or gallop Lungs: Clear Abdomen: Soft. Nontender. Positive bowel sounds. No organomegaly Extremities: 1-2+ edema - Lab 04/16/17 03:45 04/16/17 03:45 Most recent lab results ABG pH 7.371 (7.35-7.45) 04/16/17 02:50 ABG pCO2 28.4 MM HG (35-48) L 04/16/17 02:50 ABG pO2 87.8 MM HG (80-95) 04/16/17 02:50 ABG HCO3 18.2 MMOL/L (20-26) L 04/16/17 02:50 ABG O2 Saturation 96.3 % (95-100) 04/16/17 02:50 Calcium 6.4 MG/DL (8.5-10.1) L 04/16/17 03:45 Phosphorus 8.0 MG/DL (2.5-4.9) H 04/15/17 04:30 Magnesium 3.3 MG/DL (1.8-2.4) H 04/16/17 03:45 Assessment and Plan (1) Chronic kidney disease, stage IV (severe) Status: Chronic Assessment and plan: 61-year-old man admitted with: * CRF stage IV. Baseline creatinine mid threes * ARF on CRF. Probable ATN. Urine output 2311 mL/24 hours. Creatinine arely 0.2 mg percent since yesterday. I discussed his situation with his family. Rate of rising creatinine has slowed and urine output has improved. We will observe for another day to see if he will recover baseline renal function. I explained his neurologic prognosis makes him a poor candidate for dialysis. However his family may insist on dialysis if he does not recover * Nephrotic syndrome * Diabetes mellitus * Cardiomyopathy * Cardiac arrest. * Anoxic brain injury. Current Visit: Yes (2) Acute respiratory failure Status: Acute Current Visit: Yes Qualifiers: Respiratory failure complication: hypoxia Qualified Code(s): J96.01 - Acute respiratory failure with hypoxia (3) Cardiac arrest Status: Acute Current Visit: Yes (4) Cellulitis and abscess of face Status: Acute Current Visit: No (5) Cardiomyopathy Status: Chronic Current Visit: No (6) Diabetes Status: Chronic Current Visit: No Qualifiers: Diabetes mellitus type: type 1 Diabetes mellitus complication status: with kidney complications Diabetes mellitus complication detail: with chronic kidney disease Chronic kidney disease stage: stage 4 (severe) Qualified Code (s): E10.22 - Type 1 diabetes mellitus with diabetic chronic kidney disease; N18.4 - Chronic kidney disease, stage 4 (severe) (7) Nephrotic syndrome Status: Chronic Current Visit: No
[2017-04-17] MEDS: INSULIN REGULAR 100 UNIT/ML SUBCUT SCH ×6 (00:45→21:25)
[2017-04-17] MEDS: PIPERACILLIN/TAZOBACTAM 3,375 MG in SODIUM CHLORIDE 0.9% 100 ML IV SCH ×2 (00:46→12:18)
[2017-04-17] MEDS: ALBUTEROL/IPRATROPIUM 3 ML NEB RESP TX SCH ×4 (01:24→19:57)
[2017-04-17 02:58] LABS: ABG Base Excess -5.5 MMOL/L (-2.5-2.5); ABG HCO3 17.1 MMOL/L (20-26); ABG Oxygen Saturation 98.4 % (95-100); ABG PCO2 25.4 MM HG (35-48); ABG PH 7.447 (7.35-7.45); ABG PO2 127.6 MM HG (80-95); ABG TCO2 17.9 MMOL/L (23-27); Allen Test Positive; Pt O2 Delivery Device Ventilator
[2017-04-17] MEDS: hydrALAZINE 25 MG TABLET PO PRN ×2 (04:34→17:10)
[2017-04-17 04:42] LABS: Basophils % 0.2 % (0.0-0.8); Eosinophils # 0.2 10*3/uL (0.0-0.87); Eosinophils % 1.7 % (0.00-10.9); Hematocrit 31.4 VOL% (42.0-52.0); Hemoglobin 10.8 GM/DL (14.0-18.0); Immature Granulocytes % 0.4 %; Immature Granulocytes Absolute 0.04 #; Lymphocytes # 0.7 10*3/uL (1.4-4.0); Lymphocytes % 6.5 % (21.2-54.2); Mean Corpuscular HGB Conc 34.4 GM/DL (32-36); Mean Corpuscular Hemoglobin 29 PG (27-34); Mean Corpuscular Volume 84.9 FL (87-102); Mean Platelet Volume 10.1 FL (9.6-12.0); Monocytes # 0.4 10*3/uL (0.11-0.8); Monocytes % 4.1 % (1.7-12.7); NRBC # 0.02 10*3/uL; Neutrophils # 8.7 10*3/uL (1.4-7.4); Neutrophils % 87.1 % (38.7-73.9); Platelet Count 188 T/CUMM (130-400); Red Cell Distribution Width 17.8 % (9.3-17.3)
[2017-04-17 05:32] LABS: Magnesium 3.4 MG/DL (1.8-2.4); Osmolality,Calculated 304.1 MOS/KG (273-304); Potassium 4.6 MMOL/L (3.5-5.1)
--- NOTE | 2017-04-17 06:35 | Pulmonology Progress Note ---
Pulmonary - PN: Subj Interval history: This 61-year-old man had a cardiac arrest and has finished the [facility] protocol. He remains on the ventilator. He required higher settings of PEEP and FiO2 over the weekend but this morning his PO2 is 264 on 90% oxygen and 15 of PEEP. We can reduce both the FiO2 and PEEP and recheck ABGs this morning. He remains unresponsive. Apparently does have a bit of a gag reflex. Neurology is to review his case and see what they think about prognosis. Family has made him a DO NOT RESUSCITATE. 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 04/14/2017 patient remains unresponsive. Neurologic evaluation has indicated severe hypoxic brain injury. ABGs are improved. Chest x-ray is stable. Will reduce FiO2 and PEEP. Hopefully can start weaning trial soon. His renal function is getting worse with creatinine up to 6.9. Prognosis is grave. Continuing full support at present. 04/15/2017 patient remains unresponsive. ABGs a little better. Will reduce PEEP to 5 cm. Start weaning trials. Renal function getting worse by the day. Chest x-ray looks a little bit wet. Getting saline to try to maintain urine output. Prognosis grave. 04/16/2017 bloody secretions have come from his endotracheal tube. He has a right lower lobe infiltrate. He has grown Klebsiella from his sputum. He is on Zosyn for that already. Remains unresponsive. Prognosis is poor. Creatinine is 7.7. Patient has end-stage cardiomyopathy and is status post cardiac arrest. He has severe hypoxic brain injury. 04/17/1979 ABGs look reasonable. Patient tolerating longer CPAP trials. Patient not able to defend his airway. There is some spontaneous movement but no purposeful movement and he does not respond to anything except painful stimulation. Exam (Progress Note) - Constitutional Vitals: Period Temp Pulse Resp BP Sys/Post Pulse Ox Last 24 Hr 95.9 F-97.4 F 55-83 14-24 136-179/71-98 97-100 Exam: Patient is unresponsive. Vital signs normal. He does have some respiratory effort. He does not respond to painful stimulus. Pupils small irregular and sluggish. Face symmetrical. Orotracheal tube is in place. Neck is supple. Chest reveals a few rhonchi equal breath sounds. Heart normal rate rhythm no murmurs. Abdomen soft no masses. Extremities no clubbing cyanosis edema. Little change from yesterday. Results - Labs CBC & BMP: 04/17/17 04:30 04/17/17 04:30 Lab Results: I have reviewed the past 24 hour labs - Diagnostic Findings Procedure: Chest x-ray: image reviewed by me (Bilateral lower lobe infiltrates little change from before.) Assessment and Plan (1) Acute respiratory failure Status: Acute Assessment and plan: Patient is on the ventilator 100% oxygen. ABGs look good at present. Will reduce FiO2 to 60%. Certainly cannot start weaning until we see what his mental status is like and that will be after [facility] protocol. 04/13/17 ABGs improved. Will reduce FiO2 and PEEP a little. Prognosis is poor. 04/14/2017 ABGs improved. We can reduce both FiO2 and PEEP. Hopefully one would get his PEEP down to 6 we can start weaning. 04/15/2017 ABGs are better. Reducing PEEP. Start weaning. Mental status will guide us with weaning. 04/16/2017 patient starting to do CPAP. Mental status will guide us where to go later. If we are to continue long-term mechanical ventilatory support and would likely need a tracheostomy in a few days. 04/17/2017 tolerating prolonged CPAP trials. It appears that we will likely be doing a tracheostomy next week if no other changes. I do not think he can defend his airway at this point. Current Visit: Yes Qualifiers: Respiratory failure complication: hypoxia Qualified Code(s): J96.01 - Acute respiratory failure with hypoxia (2) Cardiac arrest Status: Acute Assessment and plan: Patient had a cardiac arrest last night. He has known severe cardiomyopathy. Did not have any known electrolyte imbalance. Does have chronic renal failure with a creatinine now around 5. He would be at increased risk for a pulmonary embolism. 04/13/17 it appears that he has had significant brain injury. Await neurologic evaluation. 04/14/2017 and apparent severe hypoxic brain injury. See neurology note 04/15/2017 apparent severe hypoxic brain injury. 04/16/2017 continues to exhibit signs of severe hypoxic brain injury. 04/17/2017 severe brain injury. Current Visit: Yes (3) Chronic renal insufficiency Status: Chronic Assessment and plan: Creatinine has gone up from about 3.7-5 over the last few days. 04/13/17 creatinine up to 5.9 04/14/2017 creatinine is up to 6.9. Will start on some nasogastric feedings and IV fluids. 04/15/2017 creatinine up to 7.5. Defer to nephrology 04/16/2017 creatinine is 7.7. Perhaps it's levelling off. 04/17/2017 creatinine 8.1. Renal following Current Visit: Yes (4) Congestive heart failure Status: Chronic Assessment and plan: Systolic acute on chronic congestive failure due to severe cardiomyopathy. His troponins are not elevated so it does not appear that he had a myocardial infarction as the cause of his arrest last night. 04/13/17 x-ray shows increased interstitial markings consistent with congestive heart failure, but not brigida pulmonary edema. 04/14/2017 does not appear to be in pulmonary edema. 04/15/2017 appears to be developing pulmonary edema. However ABGs are better. IV fluids started yesterday by cardiology. 04/16/2017 this lobe infiltrate. Difficult to tell him what this is heart failure, which may be the Klebsiella pneumonia. He is on Zosyn. 04/17/2017 chest x-ray compatible with mild congestive heart failure. Also getting antibiotics for Klebsiella pneumonia Current Visit: Yes Qualifiers: Congestive heart failure type: unspecified congestive heart failure type Congestive heart failure chronicity: acute on chronic Qualified Code(s): I50.9 - Heart failure, unspecified (5) Cellulitis and abscess of face Status: Acute Assessment and plan: He has actually completed full course of treatment for the cellulitis. We need to be careful about vancomycin with his renal failure. Defer to ENT and nephrology on antibiotics and dosing. Current Visit: No (6) Nephrotic syndrome Status: Chronic Assessment and plan: He has peripheral edema. Low serum protein. Increased risk for DVT/PTED. Current Visit: No (7) Pulmonary embolism Status: Acute Assessment and plan: Perfusion lung scan suggestive of pulmonary embolism. Unable to obtain PE protocol CT scan due to renal failure. Patient is on empiric heparin infusion. 04/14/2017 continuing heparin for suspected pulmonary thromboembolic disease 04/15/2017 patient is on heparin. 04/16/2017 his perfusion lung scan was suggestive of pulmonary embolism. We do not have a definitive diagnosis. He has had some pulmonary hemorrhage. I stop the heparin yesterday. Difficult situation. 04/17/2017 this is not a definitive diagnosis which was suspected at the time of his arrest. He had nonspecifically abnormal VQ lung scan. We did not do a CT PE protocol because of the renal failure. His heparin has been held because of bloody pulmonary secretions. Continue to monitor. Current Visit: Yes
--- NOTE | 2017-04-17 06:47 | XRay Report ---
Portable chest Date: 04/17/2017 Clinical history: Intubation Comparison: 04/16/2017 Technique: Portable AP sitting chest Findings: Stable cardiomegaly and support devices. Reduction in the diffuse parenchymal findings with persistent small to moderate right and small left pleural effusions. Stable mediastinum with degenerative changes. Old healed left clavicular fracture. Impression: Minimally reduced atelectasis/infiltration/fenestration of the left lung with small to moderate right and small left pleural effusions. Stable supportive devices. PROCEDURE INTERPRETED AT [facility] DEPARTMENT OF RADIOLOGY Final Report Signed by: Dr. Isha Stewart
[2017-04-17] MEDS: CEFEPIME IV SCH (08:49)
[2017-04-17] MEDS: SODIUM CHLORIDE 0.9% IV SCH (08:49)
[2017-04-17] MEDS: metOLazone 5 MG TABLET PO SCH (08:49)
[2017-04-17] MEDS: FUROSEMIDE 40 MG/4 ML VIAL IV SCH (08:49)
[2017-04-17] MEDS: PANTOPRAZOLE 40 MG VIAL IV SCH (08:49)
[2017-04-17] MEDS: ASPIRIN EC 81 MG TABLET PO SCH (08:49)
[2017-04-17] MEDS: DESITIN 4OZ/NYSTATIN 15 GRAM MIXTURE PASTE TOP SCH ×2 (08:53→21:25)
[2017-04-17] MEDS: MINERAL OIL/PETROLATUM OPH OINT 3.5 GM TUBE BOTH EYES SCH ×3 (08:53→21:25)
--- NOTE | 2017-04-17 08:59 | Cardiology Progress Note ---
Juan A Bruner Vanessa RN, am scribing for, and in the presence of, Dani Hagan MD 08:59. Assessment and Plan - Time spent with patient Time spent with patient: Greater than 30 minutes (1) Cardiomyopathy Status: Chronic Assessment and plan: Severe cardiomyopathy with ejection fraction 20%. Current Visit: No (2) Acute respiratory failure Status: Acute Assessment and plan: Intubated with mechanical ventilation. Managed per pulmonology. Currently CPAP trials and weaning from ventilator as tolerated. Current Visit: Yes Qualifiers: Respiratory failure complication: hypoxia Qualified Code(s): J96.01 - Acute respiratory failure with hypoxia (3) Cardiopulmonary arrest Status: Acute Current Visit: Yes (4) Chronic kidney disease, stage IV (severe) Status: Chronic Assessment and plan: Worsening renal failure s/p cardiac arrest. He is being followed and managed per nephrology. Noted he is not a candidate for dialysis. Creatinine has continued to trend upward. Creatinine and GFR 8.1 and 9 respectively. 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 JACKY TINAJERO PCP: [facility] Mr. Mantilla is a 61 year old male, patient of Dr. Tinajero. He has a history of congestive heart failure, dyslipidemia, diabetes, hypertension, cardiomyopathy, chronic renal insufficiency stage IV. He was transferred to [facility] ED on 04/09 status post code. Patient was being housed at [facility] at [facility] when he coded and was apparently asystole for an extended period of time before he was intubated and prior to arriving in our ED. Experiencced cardiac arrest once in [place] ED. He was intubated, placed on an Epinephrine infusion, stabilized, and transferred to the ICU. We were consulted to see him. Patient did complete hypothermia protocol with [place]. EEG revealed patterns consistent with severe encephalopathy and anoxic brain injury. Code Status has now been changed to DO NOT RESCUSCITATE. He is being followed by pulmonology. Nephrology and neurology have been consulted to see him. He was previously hospitalized at [facility] a little over a month ago with acute respiratory failure, chronic renal failure, and nephrotic syndrome and we were following him at that time. During the previous admission, he required mechanical ventilation for several days. He was found to have a severe cardiomyopathy with ejection fraction 20%, severe global hypokinesis, grade 3 diastolic dysfunction, mild pulmonary hypertension, mild biatrial enlargement, mild pulmonic valve insufficiency. He was weaned off the ventilator and eventually improved enough to [facility] for further rehab and IV antibiotics for his cheek infection with MRSA APRIL 17, 2017: Mr. Mantilla is seen and examined in the ICU. He remains intubated and not requiring sedation. Patient has slight withdrawal from painful stimuli and spontaneous movement of neck/head movement, but he has no purposeful response. Overnight, no acute changes or findings in patient's hemodynamic status. Continuing trend upward of creatinine and today is 8.1 with a GFR of 9. Potassium is 4.6 and magnesium is 3.4. Sinus rhythm per cardiac monitoring with pulse rates 70s and 80s. Systolic BP 155-175 mmHg range. CPAP trials are progressing as he has tolerated these well. Patient continues for the most part unresponsive with no purposeful movement. We are in the process of trying to get with the family to determine whether they wish to withdraw support as I do not see any reversible features here. Exam (Progress Note) - Constitutional Vitals: Period Temp Pulse Resp BP Sys/Post Pulse Ox Last 24 Hr 95.9 F-97.4 F 55-87 14-24 136-179/71-98 97-100 Exam: Gen. appearance: Patient is orally intubated with mechanical ventilation HEENT: Orally intubated., Pupils sluggish Lungs: Quite clear anteriorly. No wheeze, rhonchi. Cardiovascular: regular rate and rhythm. No gross murmur. Abdomen: Soft diminished bowel sounds. No mass Extremities: Diffuse and generalized edema Neurologic: Withdraws from painful stimuli. no purposeful response. Skin: Warm, dry. Result/EKG - Labs CBC & BMP: 04/17/17 04:30 04/17/17 04:30 Lab Results: I have reviewed the past 24 hour labs Labs: Laboratory Results - last 24 hr 04/16/17 04/16/17 04/16/17 05:36 11:50 16:00 WBC RBC Hgb Hct MCV MCH MCHC RDW Plt Count MPV Neut % (Auto) Lymph % (Auto) Mora % (Auto) Eos % (Auto) Baso % (Auto) Neut # (Auto) Lymph # (Auto) Mora # (Auto) Eos # (Auto) Baso # (Auto) Immature Gran % Nucleated RBC % Immature Gran # Nucleated RBCs # ABG pH ABG pCO2 ABG pO2 ABG HCO3 ABG Total CO2 ABG O2 Saturation ABG Base Excess FiO2 Sodium Potassium Chloride Carbon Dioxide Anion Gap BUN Creatinine GFR Calculation BUN/Creatinine Ratio Glucose POC Glucose 177 H 187 H Calculated Osmolality Calcium Magnesium Random Vancomycin 19.8 04/16/17 04/17/17 04/17/17 20:32 00:05 02:48 WBC RBC Hgb Hct MCV MCH MCHC RDW Plt Count MPV Neut % (Auto) Lymph % (Auto) Mora % (Auto) Eos % (Auto) Baso % (Auto) Neut # (Auto) Lymph # (Auto) Mora # (Auto) Eos # (Auto) Baso # (Auto) Immature Gran % Nucleated RBC % Immature Gran # Nucleated RBCs # ABG pH 7.447 ABG pCO2 25.4 L ABG pO2 127.6 H ABG HCO3 17.1 L ABG Total CO2 17.9 L ABG O2 Saturation 98.4 ABG Base Excess -5.5 L FiO2 50.00 Sodium Potassium Chloride Carbon Dioxide Anion Gap BUN Creatinine GFR Calculation BUN/Creatinine Ratio Glucose POC Glucose 180 H 185 H Calculated Osmolality Calcium Magnesium Random Vancomycin 04/17/17 04/17/17 04/17/17 04:30 04:30 07:35 WBC 10.0 RBC 3.70 L Hgb 10.8 L Hct 31.4 L MCV 84.9 L MCH 29 MCHC 34.4 RDW 17.8 H Plt Count 188 MPV 10.1 Neut % (Auto) 87.1 H Lymph % (Auto) 6.5 L Mora % (Auto) 4.1 Eos % (Auto) 1.7 Baso % (Auto) 0.2 Neut # (Auto) 8.7 H Lymph # (Auto) 0.7 L Mora # (Auto) 0.4 Eos # (Auto) 0.2 Baso # (Auto) 0.0 Immature Gran % 0.4 Nucleated RBC % 0.2 Immature Gran # 0.04 Nucleated RBCs # 0.02 ABG pH ABG pCO2 ABG pO2 ABG HCO3 ABG Total CO2 ABG O2 Saturation ABG Base Excess FiO2 Sodium 135 L Potassium 4.6 Chloride 99 Carbon Dioxide 17 L Anion Gap 23.6 H BUN 101 H Creatinine 8.10 H GFR Calculation 9 BUN/Creatinine Ratio 12.00 Glucose 156 H POC Glucose 161 H Calculated Osmolality 304.1 H Calcium 7.0 L Magnesium 3.4 H Random Vancomycin - Diagnostic Findings Procedure: Chest x-ray: image reviewed by me, report reviewed by me - EKG EKG results: interpreted by me, no acute changes EKG shows: sinus rhythm Bentley Bruner Wesley, MD, personally performed the services described in this documentation, ascribed by Shania Velazco RN in my presence, and it is both accurate and complete [id number] .
--- NOTE | 2017-04-17 13:16 | Nephrology Progress Note ---
Nephrology - PN: Subj Interval history: He remains unresponsive on the ventilator. Blood pressure stable Exam (PN)-Nephrology - Vital Signs Vital signs: Period Temp Pulse Resp BP Sys/Post Pulse Ox Last 24 Hr 95.9 F-97.8 F 58-87 14-24 136-179/71-98 98-100 Exam: Gen.: Not responsive. On ventilator ENT: Pupils equal round reactive to light. Neck: Supple. No JVD or bruit. Cardiovascular: Regular rate and rhythm. No murmur rub or gallop Lungs: Clear Abdomen: Soft. Nontender. Positive bowel sounds. No organomegaly Extremities: 1-2+ edema - Lab 04/17/17 04:30 04/17/17 04:30 Most recent lab results ABG pH 7.447 (7.35-7.45) 04/17/17 02:48 ABG pCO2 25.4 MM HG (35-48) L 04/17/17 02:48 ABG pO2 127.6 MM HG (80-95) H 04/17/17 02:48 ABG HCO3 17.1 MMOL/L (20-26) L 04/17/17 02:48 ABG O2 Saturation 98.4 % (95-100) 04/17/17 02:48 Calcium 7.0 MG/DL (8.5-10.1) L 04/17/17 04:30 Phosphorus 8.0 MG/DL (2.5-4.9) H 04/15/17 04:30 Magnesium 3.4 MG/DL (1.8-2.4) H 04/17/17 04:30 Assessment and Plan (1) Chronic kidney disease, stage IV (severe) Status: Chronic Assessment and plan: 61-year-old man admitted with: * CRF stage IV. Baseline creatinine mid threes * ARF on CRF. Probable ATN. Urine output greater than 2500 cc past 24 hours. Creatinine is slightly higher. He is not hyperkalemic. Discussed with family * Nephrotic syndrome * Diabetes mellitus * Cardiomyopathy * Cardiac arrest. * Anoxic brain injury. Current Visit: Yes (2) Acute respiratory failure Status: Acute Current Visit: Yes Qualifiers: Respiratory failure complication: hypoxia Qualified Code(s): J96.01 - Acute respiratory failure with hypoxia (3) Cardiac arrest Status: Acute Current Visit: Yes (4) Cellulitis and abscess of face Status: Acute Current Visit: No (5) Cardiomyopathy Status: Chronic Current Visit: No (6) Diabetes Status: Chronic Current Visit: No Qualifiers: Diabetes mellitus type: type 1 Diabetes mellitus complication status: with kidney complications Diabetes mellitus complication detail: with chronic kidney disease Chronic kidney disease stage: stage 4 (severe) Qualified Code (s): E10.22 - Type 1 diabetes mellitus with diabetic chronic kidney disease; N18.4 - Chronic kidney disease, stage 4 (severe) (7) Nephrotic syndrome Status: Chronic Current Visit: No
--- NOTE | 2017-04-17 14:45 | Hospitalist Progress Note ---
Assessment and Plan (1) Diabetes Status: Chronic Current Visit: No Qualifiers: Diabetes mellitus type: type 1 Diabetes mellitus complication status: with kidney complications Diabetes mellitus complication detail: with chronic kidney disease Chronic kidney disease stage: stage 4 (severe) Qualified Code (s): E10.22 - Type 1 diabetes mellitus with diabetic chronic kidney disease; N18.4 - Chronic kidney disease, stage 4 (severe) (2) Respiratory failure Status: Resolved Current Visit: No Qualifiers: Chronicity: acute (3) Systolic CHF, acute on chronic Status: Acute Current Visit: No (4) Cardiac arrest Status: Acute Current Visit: Yes (5) Acute kidney injury superimposed on chronic kidney disease Status: Acute Current Visit: Yes (6) Anoxic brain injury Status: Acute Current Visit: Yes Hospitalist: Subjective Interval history: No acute events overnight. No change in his mental status. Creatinine continues to trend up, but he is making urine. Nephrology assisting. Dialysis would add nothing to his overall status. Tolerating tube feeds. Pulmonary assisting with vent management. Long discussion with family today, including 2 sisters, a nephew and a niece, about his current status and poor prognosis. His niece is adamant that the patient has responded to her voice. She would like to give the patient more time to wake up. Exam - Constitutional Vitals: Period Temp Pulse Resp BP Sys/Post Pulse Ox Last 24 Hr 95.9 F-97.8 F 58-87 14-24 136-179/73-98 98-100 General appearance: over weight - Head Head exam: Present: normocephalic, atraumatic - ENT ENT exam: Present: normal exam - Neck Neck exam: Present: normal inspection - Respiratory Respiratory exam: Present: clear to auscultation bilaterally - Cardiovascular Cardiovascular exam: Present: regular rate and rhythm - GI/Abdominal GI/Abdominal exam: Present: normal bowel sounds, soft - Extremities Exam Extremities exam: Present: normal inspection - Back Exam Back exam: Present: normal inspection - Skin Skin exam: Present: warm, intact Results - Labs CBC & BMP: 04/17/17 04:30 04/17/17 04:30
[2017-04-18] MEDS: INSULIN REGULAR 100 UNIT/ML SUBCUT SCH ×6 (00:10→21:34)
[2017-04-18] MEDS: ALBUTEROL/IPRATROPIUM 3 ML NEB RESP TX SCH ×4 (00:59→19:14)
[2017-04-18] MEDS: PIPERACILLIN/TAZOBACTAM 3,375 MG in SODIUM CHLORIDE 0.9% 100 ML IV SCH ×2 (01:14→14:48)
[2017-04-18 04:11] LABS: ABG Base Excess -5.6 MMOL/L (-2.5-2.5); ABG HCO3 17.6 MMOL/L (20-26); ABG Oxygen Saturation 96.4 % (95-100); ABG PCO2 27.2 MM HG (35-48); ABG PH 7.428 (7.35-7.45); ABG PO2 91.6 MM HG (80-95); ABG TCO2 18.4 MMOL/L (23-27); Pt O2 Delivery Device Ventilator
[2017-04-18 05:40] LABS: Basophils % 0.2 % (0.0-0.8); Eosinophils # 0.1 10*3/uL (0.0-0.87); Eosinophils % 1.5 % (0.00-10.9); Hematocrit 30.1 VOL% (42.0-52.0); Hemoglobin 10.1 GM/DL (14.0-18.0); Immature Granulocytes % 0.4 %; Immature Granulocytes Absolute 0.04 #; Lymphocytes # 0.7 10*3/uL (1.4-4.0); Lymphocytes % 7.6 % (21.2-54.2); Mean Corpuscular HGB Conc 33.6 GM/DL (32-36); Mean Corpuscular Hemoglobin 29 PG (27-34); Mean Corpuscular Volume 84.8 FL (87-102); Monocytes # 0.4 10*3/uL (0.11-0.8); Monocytes % 4.3 % (1.7-12.7); Neutrophils # 7.9 10*3/uL (1.4-7.4); Platelet Count 201 T/CUMM (130-400); Red Blood Count 3.55 MC/CUMM (3.8-5.5); Red Cell Distribution Width 18.5 % (9.3-17.3); White Blood Count 9.2 T/CUMM (4-12)
[2017-04-18 06:09] LABS: Calcium 6.7 MG/DL (8.5-10.1); Potassium 4.8 MMOL/L (3.5-5.1)
--- NOTE | 2017-04-18 06:25 | Pulmonology Progress Note ---
Pulmonary - PN: Subj Interval history: This 61-year-old man had a cardiac arrest and has finished the [facility] protocol. He remains on the ventilator. He required higher settings of PEEP and FiO2 over the weekend but this morning his PO2 is 264 on 90% oxygen and 15 of PEEP. We can reduce both the FiO2 and PEEP and recheck ABGs this morning. He remains unresponsive. Apparently does have a bit of a gag reflex. Neurology is to review his case and see what they think about prognosis. Family has made him a DO NOT RESUSCITATE. 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 04/14/2017 patient remains unresponsive. Neurologic evaluation has indicated severe hypoxic brain injury. ABGs are improved. Chest x-ray is stable. Will reduce FiO2 and PEEP. Hopefully can start weaning trial soon. His renal function is getting worse with creatinine up to 6.9. Prognosis is grave. Continuing full support at present. 04/15/2017 patient remains unresponsive. ABGs a little better. Will reduce PEEP to 5 cm. Start weaning trials. Renal function getting worse by the day. Chest x-ray looks a little bit wet. Getting saline to try to maintain urine output. Prognosis grave. 04/16/2017 bloody secretions have come from his endotracheal tube. He has a right lower lobe infiltrate. He has grown Klebsiella from his sputum. He is on Zosyn for that already. Remains unresponsive. Prognosis is poor. Creatinine is 7.7. Patient has end-stage cardiomyopathy and is status post cardiac arrest. He has severe hypoxic brain injury. 04/17/17 ABGs look reasonable. Patient tolerating longer CPAP trials. Patient not able to defend his airway. There is some spontaneous movement but no purposeful movement and he does not respond to anything except painful stimulation. 04/18/2017 patient continues to be unresponsive. His eyes deviate to the right. No change in x-rays. ABGs look good. Creatinine 8.5. Continuing with CPAP trials, however patient not able to defend airway at this point. Exam (Progress Note) - Constitutional Vitals: Period Temp Pulse Resp BP Sys/Post Pulse Ox Last 24 Hr 97.2 F-97.8 F 67-87 16-30 139-178/68-100 87-100 Exam: Patient is unresponsive. His eyes continue to deviate towards the right. Vital signs normal. He does have some respiratory effort. He does not respond to painful stimulus. Pupils small irregular and sluggish. Face symmetrical. Orotracheal tube is in place. Neck is supple. Chest reveals a few rhonchi equal breath sounds. Heart normal rate rhythm no murmurs. Abdomen soft no masses. Extremities no clubbing cyanosis edema. Results - Labs CBC & BMP: 04/18/17 04:30 04/18/17 04:30 Lab Results: I have reviewed the past 24 hour labs - Diagnostic Findings Procedure: Chest x-ray: image reviewed by me (Interstitial infiltrates bilaterally little change from before. ET tube in good position.) Assessment and Plan (1) Acute respiratory failure Status: Acute Assessment and plan: Patient is on the ventilator 100% oxygen. ABGs look good at present. Will reduce FiO2 to 60%. Certainly cannot start weaning until we see what his mental status is like and that will be after [facility] protocol. 04/13/17 ABGs improved. Will reduce FiO2 and PEEP a little. Prognosis is poor. 04/14/2017 ABGs improved. We can reduce both FiO2 and PEEP. Hopefully one would get his PEEP down to 6 we can start weaning. 04/15/2017 ABGs are better. Reducing PEEP. Start weaning. Mental status will guide us with weaning. 04/16/2017 patient starting to do CPAP. Mental status will guide us where to go later. If we are to continue long-term mechanical ventilatory support and would likely need a tracheostomy in a few days. 04/17/2017 tolerating prolonged CPAP trials. It appears that we will likely be doing a tracheostomy next week if no other changes. I do not think he can defend his airway at this point. 04/18/2017 patient continues to tolerate CPAP, however he is not alert and unable to defend his airway at this point. Current Visit: Yes Qualifiers: Respiratory failure complication: hypoxia Qualified Code(s): J96.01 - Acute respiratory failure with hypoxia (2) Cardiac arrest Status: Acute Assessment and plan: Patient had a cardiac arrest last night. He has known severe cardiomyopathy. Did not have any known electrolyte imbalance. Does have chronic renal failure with a creatinine now around 5. He would be at increased risk for a pulmonary embolism. 04/13/17 it appears that he has had significant brain injury. Await neurologic evaluation. 04/14/2017 and apparent severe hypoxic brain injury. See neurology note 04/15/2017 apparent severe hypoxic brain injury. 04/16/2017 continues to exhibit signs of severe hypoxic brain injury. 04/17/2017 severe brain injury. 04/18/2017 again continues to show signs of hypoxic brain injury. Responds to painful stimulus. Does not follow with his eyes. Does not respond to questions. Eyes deviate to the right. Current Visit: Yes (3) Chronic renal insufficiency Status: Chronic Assessment and plan: Creatinine has gone up from about 3.7-5 over the last few days. 04/13/17 creatinine up to 5.9 04/14/2017 creatinine is up to 6.9. Will start on some nasogastric feedings and IV fluids. 04/15/2017 creatinine up to 7.5. Defer to nephrology 04/16/2017 creatinine is 7.7. Perhaps it's levelling off. 04/17/2017 creatinine 8.1. Renal following 04/18/2017 creatinine 8.5 now. Bicarb level is 19. Potassium 4.8. He is making urine. Current Visit: Yes (4) Congestive heart failure Status: Chronic Assessment and plan: Systolic acute on chronic congestive failure due to severe cardiomyopathy. His troponins are not elevated so it does not appear that he had a myocardial infarction as the cause of his arrest last night. 04/13/17 x-ray shows increased interstitial markings consistent with congestive heart failure, but not brigida pulmonary edema. 04/14/2017 does not appear to be in pulmonary edema. 04/15/2017 appears to be developing pulmonary edema. However ABGs are better. IV fluids started yesterday by cardiology. 04/16/2017 this lobe infiltrate. Difficult to tell him what this is heart failure, which may be the Klebsiella pneumonia. He is on Zosyn. 04/17/2017 chest x-ray compatible with mild congestive heart failure. Also getting antibiotics for Klebsiella pneumonia 04/18/2017 severe cardiomyopathy. Current Visit: Yes Qualifiers: Congestive heart failure type: unspecified congestive heart failure type Congestive heart failure chronicity: acute on chronic Qualified Code(s): I50.9 - Heart failure, unspecified (5) Cellulitis and abscess of face Status: Acute Assessment and plan: He has actually completed full course of treatment for the cellulitis. We need to be careful about vancomycin with his renal failure. Defer to ENT and nephrology on antibiotics and dosing. Current Visit: No (6) Nephrotic syndrome Status: Chronic Assessment and plan: He has peripheral edema. Low serum protein. Increased risk for DVT/PTED. Current Visit: No (7) Pulmonary embolism Status: Acute Assessment and plan: Perfusion lung scan suggestive of pulmonary embolism. Unable to obtain PE protocol CT scan due to renal failure. Patient is on empiric heparin infusion. 04/14/2017 continuing heparin for suspected pulmonary thromboembolic disease 04/15/2017 patient is on heparin. 04/16/2017 his perfusion lung scan was suggestive of pulmonary embolism. We do not have a definitive diagnosis. He has had some pulmonary hemorrhage. I stop the heparin yesterday. Difficult situation. 04/17/2017 this is not a definitive diagnosis which was suspected at the time of his arrest. He had nonspecifically abnormal VQ lung scan. We did not do a CT PE protocol because of the renal failure. His heparin has been held because of bloody pulmonary secretions. Continue to monitor. 04/18/2017 will put on subcu heparin. Current Visit: Yes
[2017-04-18] MEDS: HEPARIN 5,000 UNIT/1 ML VIAL SUBCUT SCH ×2 (06:37→21:32)
--- NOTE | 2017-04-18 08:09 | XRay Report ---
XR chest 1V portable Indication: Shortness of breath Comparison: Chest x-ray 04/17/2017 Technique: Portable AP chest was performed. Findings: The central chest is not well-visualized. There may be an endotracheal tube present. Esophagogastric tube is suggested but not well-visualized. Right-sided IJ central venous catheter is unchanged. Improving aeration of the right lung base is suggested. Otherwise little change in the chest. Impression: 1. Grossly underpenetrated chest. Interval partial clearing of the right lung base is suggested. Otherwise little change in the chest is demonstrated. 04/18/2017 8:06 AM PROCEDURE INTERPRETED AT [facility] DEPARTMENT OF RADIOLOGY Final Report Signed by: Dr. Anderson Funk
--- NOTE | 2017-04-18 08:36 | Cardiology Progress Note ---
Assessment and Plan (1) Cardiomyopathy Status: Chronic Assessment and plan: 04/18: Ejection fraction in the 20% range nonischemic cardiomyopathy Current Visit: No (2) Acute respiratory failure Status: Acute Assessment and plan: Intubated with mechanical ventilation. Managed per pulmonology. Currently CPAP trials and weaning from ventilator as tolerated. Current Visit: Yes Qualifiers: Respiratory failure complication: hypoxia Qualified Code(s): J96.01 - Acute respiratory failure with hypoxia (3) Cardiopulmonary arrest Status: Acute Assessment and plan: 04/18: Patient appears to be hemodynamically stable and neurologically devastated. Continuing support Current Visit: Yes (4) Chronic kidney disease, stage IV (severe) Status: Chronic Assessment and plan: Worsening renal failure s/p cardiac arrest. He is being followed and managed per nephrology. Noted he is not a candidate for dialysis. Creatinine has continued to trend upward. Creatinine and GFR 8.1 and 9 respectively. Current Visit: Yes Cardiology - PN: Subj Interval history: There is been no significant change in the patient's status. We will attempting weaning at 1. I do not know whether that is going to be successful or not but he has a dismal prognosis and likely should not be reintubated if he is successfully extubated. He is unresponsive requiring ventilator support. Exam (Progress Note) - Constitutional Vitals: Period Temp Pulse Resp BP Sys/Post Pulse Ox Last 24 Hr 97.2 F-97.8 F 67-82 13-30 139-178/68-100 87-100 Exam: Gen. appearance: Patient is orally intubated with mechanical ventilation HEENT: Orally intubated., Pupils sluggish Lungs: Quite clear anteriorly. No wheeze, rhonchi. Cardiovascular: regular rate and rhythm. No gross murmur. Abdomen: Soft diminished bowel sounds. No mass Extremities: Diffuse and generalized edema Neurologic: Withdraws from painful stimuli. no purposeful response. Skin: Warm, dry. Result/EKG - Labs CBC & BMP: 04/18/17 04:30 04/18/17 04:30 Labs: Laboratory Results - last 24 hr 04/17/17 04/17/17 04/17/17 04:25 11:55 15:39 WBC RBC Hgb Hct MCV MCH MCHC RDW Plt Count MPV Neut % (Auto) Lymph % (Auto) [place] % (Auto) Eos % (Auto) Baso % (Auto) Neut # (Auto) Lymph # (Auto) [place] # (Auto) Eos # (Auto) Baso # (Auto) Immature Gran % Nucleated RBC % Immature Gran # Nucleated RBCs # ABG pH ABG pCO2 ABG pO2 ABG HCO3 ABG Total CO2 ABG O2 Saturation ABG Base Excess FiO2 Sodium Potassium Chloride Carbon Dioxide Anion Gap BUN Creatinine GFR Calculation BUN/Creatinine Ratio Glucose POC Glucose 182 H 168 H 137 H Calculated Osmolality Calcium 04/17/17 04/18/17 04/18/17 19:55 00:03 03:51 WBC RBC Hgb Hct MCV MCH MCHC RDW Plt Count MPV Neut % (Auto) Lymph % (Auto) [place] % (Auto) Eos % (Auto) Baso % (Auto) Neut # (Auto) Lymph # (Auto) [place] # (Auto) Eos # (Auto) Baso # (Auto) Immature Gran % Nucleated RBC % Immature Gran # Nucleated RBCs # ABG pH 7.428 ABG pCO2 27.2 L ABG pO2 91.6 ABG HCO3 17.6 L ABG Total CO2 18.4 L ABG O2 Saturation 96.4 ABG Base Excess -5.6 L FiO2 40.00 Sodium Potassium Chloride Carbon Dioxide Anion Gap BUN Creatinine GFR Calculation BUN/Creatinine Ratio Glucose POC Glucose 171 H 177 H Calculated Osmolality Calcium 04/18/17 04/18/17 04/18/17 04:19 04:30 04:30 WBC 9.2 RBC 3.55 L Hgb 10.1 L Hct 30.1 L MCV 84.8 L MCH 29 MCHC 33.6 RDW 18.5 H Plt Count 201 MPV 11.0 Neut % (Auto) 86.0 H Lymph % (Auto) 7.6 L [place] % (Auto) 4.3 Eos % (Auto) 1.5 Baso % (Auto) 0.2 Neut # (Auto) 7.9 H Lymph # (Auto) 0.7 L [place] # (Auto) 0.4 Eos # (Auto) 0.1 Baso # (Auto) 0.0 Immature Gran % 0.4 Nucleated RBC % 0.0 Immature Gran # 0.04 Nucleated RBCs # 0.00 ABG pH ABG pCO2 ABG pO2 ABG HCO3 ABG Total CO2 ABG O2 Saturation ABG Base Excess FiO2 Sodium 136 Potassium 4.8 Chloride 100 Carbon Dioxide 19 L Anion Gap 21.8 H BUN 114 H D Creatinine 8.50 H GFR Calculation 8 BUN/Creatinine Ratio 13.00 Glucose 171 H POC Glucose 198 H Calculated Osmolality 311.0 H Calcium 6.7 L 04/18/17 07:41 WBC RBC Hgb Hct MCV MCH MCHC RDW Plt Count MPV Neut % (Auto) Lymph % (Auto) [place] % (Auto) Eos % (Auto) Baso % (Auto) Neut # (Auto) Lymph # (Auto) [place] # (Auto) Eos # (Auto) Baso # (Auto) Immature Gran % Nucleated RBC % Immature Gran # Nucleated RBCs # ABG pH ABG pCO2 ABG pO2 ABG HCO3 ABG Total CO2 ABG O2 Saturation ABG Base Excess FiO2 Sodium Potassium Chloride Carbon Dioxide Anion Gap BUN Creatinine GFR Calculation BUN/Creatinine Ratio Glucose POC Glucose 199 H Calculated Osmolality Calcium
[2017-04-18] MEDS: ASPIRIN EC 81 MG TABLET PO SCH (09:13)
[2017-04-18] MEDS: PANTOPRAZOLE 40 MG VIAL IV SCH (09:13)
[2017-04-18] MEDS: FUROSEMIDE 40 MG/4 ML VIAL IV SCH (09:13)
[2017-04-18] MEDS: metOLazone 5 MG TABLET PO SCH (09:13)
[2017-04-18] MEDS: SODIUM CHLORIDE 0.9% IV SCH (09:14)
[2017-04-18] MEDS: CEFEPIME IV SCH (09:14)
[2017-04-18] MEDS: MINERAL OIL/PETROLATUM OPH OINT 3.5 GM TUBE BOTH EYES SCH ×3 (09:18→21:34)
[2017-04-18] MEDS: DESITIN 4OZ/NYSTATIN 15 GRAM MIXTURE PASTE TOP SCH ×2 (09:18→21:34)
--- NOTE | 2017-04-18 09:25 | Hospitalist Progress Note ---
Assessment and Plan (1) Diabetes Status: Chronic Current Visit: No Qualifiers: Diabetes mellitus type: type 1 Diabetes mellitus complication status: with kidney complications Diabetes mellitus complication detail: with chronic kidney disease Chronic kidney disease stage: stage 4 (severe) Qualified Code (s): E10.22 - Type 1 diabetes mellitus with diabetic chronic kidney disease; N18.4 - Chronic kidney disease, stage 4 (severe) (2) Respiratory failure Status: Resolved Current Visit: No Qualifiers: Chronicity: acute (3) Systolic CHF, acute on chronic Status: Acute Current Visit: No (4) Cardiac arrest Status: Acute Current Visit: Yes (5) Acute kidney injury superimposed on chronic kidney disease Status: Acute Current Visit: Yes (6) Anoxic brain injury Status: Acute Current Visit: Yes Hospitalist: Subjective Interval history: No acute events overnight. No changes to mental status. Not tolerating tube feeds very well, has been vomiting. Will check a kub. Exam - Constitutional Vitals: Period Temp Pulse Resp BP Sys/Post Pulse Ox Last 24 Hr 97.2 F-97.8 F 67-82 13-30 139-178/68-100 87-100 General appearance: normal weight - Head Head exam: Present: normocephalic, atraumatic - Eye Eye exam: Present: EOMI Pupils: Present: ASHLY - ENT ENT exam: Present: normal exam - Neck Neck exam: Present: normal inspection - Respiratory Respiratory exam: Present: clear to auscultation bilaterally. Absent: rhonchi, wheezes - Cardiovascular Cardiovascular exam: Present: regular rate and rhythm - GI/Abdominal GI/Abdominal exam: Present: hypoactive bowel sounds, soft - Extremities Exam Extremities exam: Present: normal inspection - Back Exam Back exam: Present: normal inspection - Neurological Exam Neurological exam: Present: other (unresponsive) - Skin Skin exam: Present: warm, intact Results - Labs CBC & BMP: 04/18/17 04:30 04/18/17 04:30
--- NOTE | 2017-04-18 10:22 | XRay Report ---
XR KUB Indication: Intolerant of tube feeding. Comparison: None. Technique: Supine AP image of the abdomen was obtained. Findings: Gastrostomy tube is suggested in the upper abdomen. The bowel gas pattern demonstrates no specific abnormality. Fluid-filled loops of bowel are suggested. NG tube is present which terminates within the gastric fundus. Degenerative changes of the lumbar spine appear moderate. A Louis catheter is suggested. Left hemidiaphragm is not visualized and dependent fluid or atelectatic changes within the left lung base could be considered. Impression: 1. Bowel loops are not well visualized and may be filled with fluid. 2. Left lung base could reflect evidence of pleural effusion and/or dependent atelectasis. 04/18/2017 10:19 AM PROCEDURE INTERPRETED AT [facility] DEPARTMENT OF RADIOLOGY Final Report Signed by: Dr. Anderson Funk
--- NOTE | 2017-04-18 11:16 | Nephrology Progress Note ---
Nephrology - PN: Subj Interval history: He remains unresponsive. Blood pressure is stable. Exam (PN)-Nephrology - Vital Signs Vital signs: Period Temp Pulse Resp BP Sys/Post Pulse Ox Last 24 Hr 97.2 F-97.8 F 66-82 13-30 139-178/68-100 87-100 Exam: Gen.: Unresponsive on ventilator ENT: Pupils equal round reactive to light. Neck: Supple. No JVD or bruit. Cardiovascular: Regular rate and rhythm. No murmur rub or gallop Lungs: Clear Abdomen: Soft. Nontender. Positive bowel sounds. No organomegaly Extremities: 2+ edema - Lab 04/18/17 04:30 04/18/17 04:30 Most recent lab results ABG pH 7.428 (7.35-7.45) 04/18/17 03:51 ABG pCO2 27.2 MM HG (35-48) L 04/18/17 03:51 ABG pO2 91.6 MM HG (80-95) 04/18/17 03:51 ABG HCO3 17.6 MMOL/L (20-26) L 04/18/17 03:51 ABG O2 Saturation 96.4 % (95-100) 04/18/17 03:51 Calcium 6.7 MG/DL (8.5-10.1) L 04/18/17 04:30 Phosphorus 8.0 MG/DL (2.5-4.9) H 04/15/17 04:30 Magnesium 3.4 MG/DL (1.8-2.4) H 04/17/17 04:30 Assessment and Plan (1) Chronic kidney disease, stage IV (severe) Status: Chronic Assessment and plan: 61-year-old man admitted with: * CRF stage IV. Baseline creatinine mid threes * ARF on CRF. Urine output remains fair. However creatinine continues to rise. Discussed with family. I explained his neurologic prognosis is very poor. They want to pursue dialysis. Risks and benefits discussed with family * Nephrotic syndrome * Diabetes mellitus * Cardiomyopathy * Cardiac arrest. * Anoxic brain injury. Current Visit: Yes (2) Acute respiratory failure Status: Acute Current Visit: Yes Qualifiers: Respiratory failure complication: hypoxia Qualified Code(s): J96.01 - Acute respiratory failure with hypoxia (3) Cardiac arrest Status: Acute Current Visit: Yes (4) Cellulitis and abscess of face Status: Acute Current Visit: No (5) Cardiomyopathy Status: Chronic Current Visit: No (6) Diabetes Status: Chronic Current Visit: No Qualifiers: Diabetes mellitus type: type 1 Diabetes mellitus complication status: with kidney complications Diabetes mellitus complication detail: with chronic kidney disease Chronic kidney disease stage: stage 4 (severe) Qualified Code (s): E10.22 - Type 1 diabetes mellitus with diabetic chronic kidney disease; N18.4 - Chronic kidney disease, stage 4 (severe) (7) Nephrotic syndrome Status: Chronic Current Visit: No
--- NOTE | 2017-04-18 12:43 | Operative Note ---
Date of procedure: 04/18/17 Pre-op diagnosis: renal failure on hemodialysis Post-op diagnosis: same Procedure: Preoperative diagnosis Renal failure Postoperative diagnosis Same Procedures performed Right common femoral vein non-tunneled hemodialysis catheter Complications None apparent Findings The right common femoral vein was accessed on the second stick and had venous nonpulsatile blood return. Seldinger technique was used to place a non- tunneled hemodialysis catheter Blood loss Minimal Anesthesia None, anoxic brain injury Indications Renal failure Description of procedure The patient was placed in the supine position in his ICU bed. The right groin was prepped with chlorhexidine and draped sterilely. Timeout was called. The right common femoral artery was palpated and the needle was accessed medial to this to access the common femoral vein. Venous nonpulsatile blood return was obtained on the second stick and a wire was passed easily. A knife was used to open the skin around the wire and a dilator was used without difficulty. Seldinger technique was used to place a hemodialysis catheter and a threaded easily. The wire was removed. All 3 lm gavin back blood easily and were flushed with saline. Sterile dressing was applied with a Biopatch. Postoperative plan Hemodialysis per nephrology Implants: triple lumen hemodialysis catheter Surgeon / Physician: Daren Tiwari Estimated blood loss: minimal Specimens: none sent Condition: critical Disposition: no change Results - Labs CBC & BMP: 04/18/17 04:30 04/18/17 04:30 Discharge Plan - Discharge Medications No Action Simvastatin [Zocor] 10 mg PO BEDTIME Folic Acid Tab 1 mg PO DAILY Carvedilol [Coreg] 12.5 mg PO BID tablet Chlorhexidine 0.12% Oral Rinse [Peridex] 15 ml SWISH/SPIT BID bottle Glucagon 1 mg IM PRN PRN #0 vial PRN Reason: Hypoglycemia w/o IV access HYDROcodone/ACETAMIN 5-325 [[place] 5-325] 1 tablet PO Q6H PRN #0 tablet PRN Reason: Pain Moderate (4-7) Insulin NPH [HumuLIN N] 16 unit SUBCUT BID unit Insulin Regular [HumuLIN R] See Protocol SUBCUT Q6HR unit Lactobacillus Rhamnosus GG [Culturelle] 1 capsule PO BID capsule Lansoprazole Odt Tab [Prevacid Solutab] 30 mg PER TUBE DAILY tablet Mupirocin 2% Oint [Bactroban 2% Oint] 1 applic TOP BID applic hydrALAZINE TAB [Apresoline Tab] 25 mg PO TID tablet Cyanocobalamin (Vitamin B-12) [Vitamin B-12] 1,000 mcg PO DAILY Aspirin EC Tab 81 mg PO DAILY tablet Albuterol/Ipratropium Neb [Duoneb] 3 ml RESP TX RT Q4H Bisacodyl Tab [Dulcolax Tab] 10 mg PO DAILY PRN #0 tablet PRN Reason: Constipation Dextrose 50% [D50] 25 gm IV PRN PRN #0 vial PRN Reason: Hypoglycemia with IV access Isosorbide Mononitrate [Imdur] 30 mg PO DAILY tablet Vancomycin/0.9 % Sod Chloride [Vanco 1.5 gm/500 ml-0.9% NaCl] 1.5 gm IV Q48H #5 plast..bag - Follow Up or Referral - Forms/Instructions
[2017-04-18 14:46] LABS: Hepatitis B Surface Ab Result Positive
[2017-04-18 15:19] LABS: Hepatitis A Ab IgM Quant 0.05 Index; Hepatitis A Ab IgM Result Negative (Negative); Hepatitis B Core IgM Quant 0.18 Index; Hepatitis B Core IgM Result Negative (Negative); Hepatitis B Surface Ag Quant < 0.10 Index; Hepatitis B Surface Ag Result Negative (Negative); Hepatitis C Virus Ab Quant 0.26 Index; Hepatitis C Virus Ab Result Negative (Negative)
[2017-04-19] MEDS: ALBUTEROL/IPRATROPIUM 3 ML NEB RESP TX SCH ×4 (00:29→19:08)
[2017-04-19] MEDS: INSULIN REGULAR 100 UNIT/ML SUBCUT SCH ×6 (00:40→21:30)
[2017-04-19] MEDS: PIPERACILLIN/TAZOBACTAM 3,375 MG in SODIUM CHLORIDE 0.9% 100 ML IV SCH ×2 (00:40→14:02)
[2017-04-19 03:44] LABS: ABG Base Excess -1.6 MMOL/L (-2.5-2.5); ABG HCO3 23.1 MMOL/L (20-26); ABG Oxygen Saturation 99.8 % (95-100); ABG PCO2 30.2 MM HG (35-48); ABG TCO2 19.7 MMOL/L (23-27); Pt O2 Delivery Device Ventilator
[2017-04-19 04:38] LABS: Basophils % 0.3 % (0.0-0.8); Eosinophils # 0.3 10*3/uL (0.0-0.87); Eosinophils % 2.5 % (0.00-10.9); Hematocrit 26.6 VOL% (42.0-52.0); Hemoglobin 8.9 GM/DL (14.0-18.0); Immature Granulocytes % 0.4 %; Immature Granulocytes Absolute 0.04 #; Lymphocytes # 0.8 10*3/uL (1.4-4.0); Lymphocytes % 7.5 % (21.2-54.2); Mean Corpuscular HGB Conc 33.5 GM/DL (32-36); Mean Corpuscular Hemoglobin 29 PG (27-34); Mean Corpuscular Volume 85.3 FL (87-102); Mean Platelet Volume 10.7 FL (9.6-12.0); Monocytes # 0.3 10*3/uL (0.11-0.8); Monocytes % 3.3 % (1.7-12.7); Platelet Count 160 T/CUMM (130-400); Red Blood Count 3.12 MC/CUMM (3.8-5.5); Red Cell Distribution Width 18.5 % (9.3-17.3); White Blood Count 10.4 T/CUMM (4-12)
[2017-04-19 05:08] LABS: Calcium 6.6 MG/DL (8.5-10.1); Magnesium 3.1 MG/DL (1.8-2.4); Osmolality,Calculated 305.5 MOS/KG (273-304); Potassium 3.5 MMOL/L (3.5-5.1)
[2017-04-19] MEDS: HEPARIN 5,000 UNIT/1 ML VIAL SUBCUT SCH ×2 (06:52→18:03)
--- NOTE | 2017-04-19 07:00 | Pulmonology Progress Note ---
Pulmonary - PN: Subj Interval history: This 61-year-old man had a cardiac arrest and has finished the [facility] protocol. He remains on the ventilator. He required higher settings of PEEP and FiO2 over the weekend but this morning his PO2 is 264 on 90% oxygen and 15 of PEEP. We can reduce both the FiO2 and PEEP and recheck ABGs this morning. He remains unresponsive. Apparently does have a bit of a gag reflex. Neurology is to review his case and see what they think about prognosis. Family has made him a DO NOT RESUSCITATE. 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 04/14/2017 patient remains unresponsive. Neurologic evaluation has indicated severe hypoxic brain injury. ABGs are improved. Chest x-ray is stable. Will reduce FiO2 and PEEP. Hopefully can start weaning trial soon. His renal function is getting worse with creatinine up to 6.9. Prognosis is grave. Continuing full support at present. 04/15/2017 patient remains unresponsive. ABGs a little better. Will reduce PEEP to 5 cm. Start weaning trials. Renal function getting worse by the day. Chest x-ray looks a little bit wet. Getting saline to try to maintain urine output. Prognosis grave. 04/16/2017 bloody secretions have come from his endotracheal tube. He has a right lower lobe infiltrate. He has grown Klebsiella from his sputum. He is on Zosyn for that already. Remains unresponsive. Prognosis is poor. Creatinine is 7.7. Patient has end-stage cardiomyopathy and is status post cardiac arrest. He has severe hypoxic brain injury. 04/17/17 ABGs look reasonable. Patient tolerating longer CPAP trials. Patient not able to defend his airway. There is some spontaneous movement but no purposeful movement and he does not respond to anything except painful stimulation. 04/18/2017 patient continues to be unresponsive. His eyes deviate to the right. No change in x-rays. ABGs look good. Creatinine 8.5. Continuing with CPAP trials, however patient not able to defend airway at this point. 04/19/2017 patient remains unresponsive. Eyes deviate to the right. He has some twitching in his left arm. I wonder if there is seizure activity. Exam (Progress Note) - Constitutional Vitals: Period Temp Pulse Resp BP Sys/Post Pulse Ox Last 24 Hr 96.7 F-97.8 F 61-82 11 144-184/67-99 96-100 Exam: Patient is unresponsive. His eyes continue to deviate towards the right. Vital signs normal. He does have some respiratory effort. He does not respond to painful stimulus. Pupils small irregular and sluggish. Face symmetrical. Orotracheal tube is in place. Neck is supple. Chest reveals a few rhonchi equal breath sounds. Heart normal rate rhythm no murmurs. Abdomen soft no masses. Extremities no clubbing cyanosis edema. Little change from yesterday Results - Labs CBC & BMP: 04/19/17 04:10 04/19/17 04:10 Lab Results: I have reviewed the past 24 hour labs - Diagnostic Findings Procedure: Chest x-ray: image reviewed by me (X-ray looks a little wet but only better than yesterday.) Assessment and Plan (1) Acute respiratory failure Status: Acute Assessment and plan: Patient is on the ventilator 100% oxygen. ABGs look good at present. Will reduce FiO2 to 60%. Certainly cannot start weaning until we see what his mental status is like and that will be after [facility] protocol. 04/13/17 ABGs improved. Will reduce FiO2 and PEEP a little. Prognosis is poor. 04/14/2017 ABGs improved. We can reduce both FiO2 and PEEP. Hopefully one would get his PEEP down to 6 we can start weaning. 04/15/2017 ABGs are better. Reducing PEEP. Start weaning. Mental status will guide us with weaning. 04/16/2017 patient starting to do CPAP. Mental status will guide us where to go later. If we are to continue long-term mechanical ventilatory support and would likely need a tracheostomy in a few days. 04/17/2017 tolerating prolonged CPAP trials. It appears that we will likely be doing a tracheostomy next week if no other changes. I do not think he can defend his airway at this point. 04/18/2017 patient continues to tolerate CPAP, however he is not alert and unable to defend his airway at this point. 04/19/2017 continuing with CPAP trials. ABGs improved. Reduce FiO2. Progressing with CPAP. Likely will need tracheostomy Current Visit: Yes Qualifiers: Respiratory failure complication: hypoxia Qualified Code(s): J96.01 - Acute respiratory failure with hypoxia (2) Cardiac arrest Status: Acute Assessment and plan: Patient had a cardiac arrest last night. He has known severe cardiomyopathy. Did not have any known electrolyte imbalance. Does have chronic renal failure with a creatinine now around 5. He would be at increased risk for a pulmonary embolism. 04/13/17 it appears that he has had significant brain injury. Await neurologic evaluation. 04/14/2017 and apparent severe hypoxic brain injury. See neurology note 04/15/2017 apparent severe hypoxic brain injury. 04/16/2017 continues to exhibit signs of severe hypoxic brain injury. 04/17/2017 severe brain injury. 04/18/2017 again continues to show signs of hypoxic brain injury. Responds to painful stimulus. Does not follow with his eyes. Does not respond to questions. Eyes deviate to the right. 04/19/2017 hypoxic brain injury. Patient is turning his head at times and moving all little but not in response to requests. Does not appear to be purposeful. Current Visit: Yes (3) Chronic renal insufficiency Status: Chronic Assessment and plan: Creatinine has gone up from about 3.7-5 over the last few days. 04/13/17 creatinine up to 5.9 04/14/2017 creatinine is up to 6.9. Will start on some nasogastric feedings and IV fluids. 04/15/2017 creatinine up to 7.5. Defer to nephrology 04/16/2017 creatinine is 7.7. Perhaps it's levelling off. 04/17/2017 creatinine 8.1. Renal following 04/18/2017 creatinine 8.5 now. Bicarb level is 19. Potassium 4.8. He is making urine. 04/19/2017 patient started on dialysis yesterday. Chest x-ray looks a little bit less wet. Current Visit: Yes (4) Congestive heart failure Status: Chronic Assessment and plan: Systolic acute on chronic congestive failure due to severe cardiomyopathy. His troponins are not elevated so it does not appear that he had a myocardial infarction as the cause of his arrest last night. 04/13/17 x-ray shows increased interstitial markings consistent with congestive heart failure, but not rbigida pulmonary edema. 04/14/2017 does not appear to be in pulmonary edema. 04/15/2017 appears to be developing pulmonary edema. However ABGs are better. IV fluids started yesterday by cardiology. 04/16/2017 this lobe infiltrate. Difficult to tell him what this is heart failure, which may be the Klebsiella pneumonia. He is on Zosyn. 04/17/2017 chest x-ray compatible with mild congestive heart failure. Also getting antibiotics for Klebsiella pneumonia 04/18/2017 severe cardiomyopathy. 04/19/2017 seems to be a little better after dialysis. Current Visit: Yes Qualifiers: Congestive heart failure type: unspecified congestive heart failure type Congestive heart failure chronicity: acute on chronic Qualified Code(s): I50.9 - Heart failure, unspecified (5) Cellulitis and abscess of face Status: Acute Assessment and plan: He has actually completed full course of treatment for the cellulitis. We need to be careful about vancomycin with his renal failure. Defer to ENT and nephrology on antibiotics and dosing. Current Visit: No (6) Nephrotic syndrome Status: Chronic Assessment and plan: He has peripheral edema. Low serum protein. Increased risk for DVT/PTED. Current Visit: No (7) Pulmonary embolism Status: Acute Assessment and plan: Perfusion lung scan suggestive of pulmonary embolism. Unable to obtain PE protocol CT scan due to renal failure. Patient is on empiric heparin infusion. 04/14/2017 continuing heparin for suspected pulmonary thromboembolic disease 04/15/2017 patient is on heparin. 04/16/2017 his perfusion lung scan was suggestive of pulmonary embolism. We do not have a definitive diagnosis. He has had some pulmonary hemorrhage. I stop the heparin yesterday. Difficult situation. 04/17/2017 this is not a definitive diagnosis which was suspected at the time of his arrest. He had nonspecifically abnormal VQ lung scan. We did not do a CT PE protocol because of the renal failure. His heparin has been held because of bloody pulmonary secretions. Continue to monitor. 04/18/2017 will put on subcu heparin. 04/19/2017 never clear-cut about whether he had an embolus. He had some pulmonary hemorrhage when fully anticoagulated. We now have all subcu heparin prophylactic doses. Now that he is on dialysis we can do a CT PE protocol and will consider that tomorrow. Current Visit: Yes
--- NOTE | 2017-04-19 07:53 | Cardiology Progress Note ---
Assessment and Plan (1) Cardiomyopathy Status: Chronic Assessment and plan: 04/18: Ejection fraction in the 20% range nonischemic cardiomyopathy Current Visit: No (2) Acute respiratory failure Status: Acute Assessment and plan: Intubated with mechanical ventilation. Managed per pulmonology. Currently CPAP trials and weaning from ventilator as tolerated. Current Visit: Yes Qualifiers: Respiratory failure complication: hypoxia Qualified Code(s): J96.01 - Acute respiratory failure with hypoxia (3) Cardiopulmonary arrest Status: Acute Assessment and plan: 04/18: Patient appears to be hemodynamically stable and neurologically devastated. Continuing support 04/19: Patient continues symptomatically stable with no change in neurologic status. Prognosis is dismal. Current Visit: Yes (4) Chronic kidney disease, stage IV (severe) Status: Chronic Assessment and plan: Worsening renal failure s/p cardiac arrest. He is being followed and managed per nephrology. Noted he is not a candidate for dialysis. Creatinine has continued to trend upward. Creatinine and GFR 8.1 and 9 respectively. Current Visit: Yes Cardiology - PN: Subj Interval history: There is been no change the patient's hemodynamic status. He continues stable on ventilator support. Neurologically there is been no change. Family is considering withdrawing support. Exam (Progress Note) - Constitutional Vitals: Period Temp Pulse Resp BP Sys/Post Pulse Ox Last 24 Hr 96.7 F-97.8 F 61-80 11-26 144-184/67-99 96-100 Result/EKG - Labs CBC & BMP: 04/19/17 04:10 04/19/17 04:10 Labs: Laboratory Results - last 24 hr 04/18/17 04/18/17 04/18/17 04:30 06:00 11:28 WBC RBC Hgb Hct MCV MCH MCHC RDW Plt Count MPV Neut % (Auto) Lymph % (Auto) [place] % (Auto) Eos % (Auto) Baso % (Auto) Neut # (Auto) Lymph # (Auto) [place] # (Auto) Eos # (Auto) Baso # (Auto) Immature Gran % Nucleated RBC % Immature Gran # Nucleated RBCs # ABG pH ABG pCO2 ABG pO2 ABG HCO3 ABG Total CO2 ABG O2 Saturation ABG Base Excess FiO2 Sodium Potassium Chloride Carbon Dioxide Anion Gap BUN Creatinine GFR Calculation BUN/Creatinine Ratio Glucose POC Glucose 199 H Calculated Osmolality Calcium Magnesium Hepatitis A IgM Ab Negative Hep Bs Antigen Negative Hep Bs Antibody Positive Hep B Core IgM Ab Negative Hepatitis C Antibody Negative 04/18/17 04/18/17 04/18/17 16:08 21:01 23:46 WBC RBC Hgb Hct MCV MCH MCHC RDW Plt Count MPV Neut % (Auto) Lymph % (Auto) [place] % (Auto) Eos % (Auto) Baso % (Auto) Neut # (Auto) Lymph # (Auto) [place] # (Auto) Eos # (Auto) Baso # (Auto) Immature Gran % Nucleated RBC % Immature Gran # Nucleated RBCs # ABG pH ABG pCO2 ABG pO2 ABG HCO3 ABG Total CO2 ABG O2 Saturation ABG Base Excess FiO2 Sodium Potassium Chloride Carbon Dioxide Anion Gap BUN Creatinine GFR Calculation BUN/Creatinine Ratio Glucose POC Glucose 172 H 195 H 257 H Calculated Osmolality Calcium Magnesium Hepatitis A IgM Ab Hep Bs Antigen Hep Bs Antibody Hep B Core IgM Ab Hepatitis C Antibody 04/19/17 04/19/17 04/19/17 03:10 04:10 04:10 WBC 10.4 RBC 3.12 L Hgb 8.9 L Hct 26.6 L MCV 85.3 L MCH 29 MCHC 33.5 RDW 18.5 H Plt Count 160 D MPV 10.7 Neut % (Auto) 86.0 H Lymph % (Auto) 7.5 L [place] % (Auto) 3.3 Eos % (Auto) 2.5 Baso % (Auto) 0.3 Neut # (Auto) 9.0 H Lymph # (Auto) 0.8 L [place] # (Auto) 0.3 Eos # (Auto) 0.3 Baso # (Auto) 0.0 Immature Gran % 0.4 Nucleated RBC % 0.0 Immature Gran # 0.04 Nucleated RBCs # 0.00 ABG pH 7.460 H ABG pCO2 30.2 L ABG pO2 175.0 H ABG HCO3 23.1 ABG Total CO2 19.7 L ABG O2 Saturation 99.8 ABG Base Excess -1.6 FiO2 40.00 Sodium 139 Potassium 3.5 Chloride 102 Carbon Dioxide 24 Anion Gap 16.5 H BUN 78 H D Creatinine 6.30 H GFR Calculation 11 BUN/Creatinine Ratio 12.00 Glucose 202 H POC Glucose Calculated Osmolality 305.5 H Calcium 6.6 L Magnesium 3.1 H Hepatitis A IgM Ab Hep Bs Antigen Hep Bs Antibody Hep B Core IgM Ab Hepatitis C Antibody 04/19/17 04/19/17 04:10 07:35 WBC RBC Hgb Hct MCV MCH MCHC RDW Plt Count MPV Neut % (Auto) Lymph % (Auto) [place] % (Auto) Eos % (Auto) Baso % (Auto) Neut # (Auto) Lymph # (Auto) [place] # (Auto) Eos # (Auto) Baso # (Auto) Immature Gran % Nucleated RBC % Immature Gran # Nucleated RBCs # ABG pH ABG pCO2 ABG pO2 ABG HCO3 ABG Total CO2 ABG O2 Saturation ABG Base Excess FiO2 Sodium Potassium Chloride Carbon Dioxide Anion Gap BUN Creatinine GFR Calculation BUN/Creatinine Ratio Glucose POC Glucose 214 H 194 H Calculated Osmolality Calcium Magnesium Hepatitis A IgM Ab Hep Bs Antigen Hep Bs Antibody Hep B Core IgM Ab Hepatitis C Antibody
[2017-04-19] MEDS: SODIUM CHLORIDE 0.9% IV SCH (08:43)
[2017-04-19] MEDS: metOLazone 5 MG TABLET PO SCH (08:43)
[2017-04-19] MEDS: FUROSEMIDE 40 MG/4 ML VIAL IV SCH (08:43)
[2017-04-19] MEDS: ASPIRIN EC 81 MG TABLET PO SCH (08:43)
[2017-04-19] MEDS: CEFEPIME IV SCH (08:43)
[2017-04-19] MEDS: PANTOPRAZOLE 40 MG VIAL IV SCH (08:44)
[2017-04-19] MEDS: DESITIN 4OZ/NYSTATIN 15 GRAM MIXTURE PASTE TOP SCH ×2 (08:49→21:31)
[2017-04-19] MEDS: MINERAL OIL/PETROLATUM OPH OINT 3.5 GM TUBE BOTH EYES SCH ×3 (08:49→21:31)
--- NOTE | 2017-04-19 08:49 | XRay Report ---
XR chest 1V portable Indication: Shortness of breath Comparison: Chest x-ray 04/18/2017 Technique: Portable AP chest was performed. Findings: Multiple tubes and medical support devices appear stable. Endotracheal tube is not well-visualized if present. Bilateral parenchymal opacities most involving the perihilar regions and left lung bases have changed little since comparison. Overall little change in the chest is suggested. Impression: 1. No adverse interval change in the chest. 04/19/2017 8:45 AM PROCEDURE INTERPRETED AT [facility] DEPARTMENT OF RADIOLOGY Final Report Signed by: Dr. Anderson Funk
--- NOTE | 2017-04-19 11:48 | Hospitalist Progress Note ---
Assessment and Plan (1) Diabetes Status: Chronic Current Visit: No Qualifiers: Diabetes mellitus type: type 1 Diabetes mellitus complication status: with kidney complications Diabetes mellitus complication detail: with chronic kidney disease Chronic kidney disease stage: stage 4 (severe) Qualified Code (s): E10.22 - Type 1 diabetes mellitus with diabetic chronic kidney disease; N18.4 - Chronic kidney disease, stage 4 (severe) (2) Respiratory failure Status: Resolved Current Visit: No Qualifiers: Chronicity: acute (3) Systolic CHF, acute on chronic Status: Acute Current Visit: No (4) Cardiac arrest Status: Acute Current Visit: Yes (5) Acute kidney injury superimposed on chronic kidney disease Status: Acute Current Visit: Yes (6) Anoxic brain injury Status: Acute Current Visit: Yes Hospitalist: Subjective Interval history: No acute events overnight. Patient underwent HD yesterday. No changes to his mental status. Exam - Constitutional Vitals: Period Temp Pulse Resp BP Sys/Post Pulse Ox Last 24 Hr 96.7 F-97.8 F 56-80 11-26 131-184/61-113 96-100 General appearance: over weight - Head Head exam: Present: normocephalic, atraumatic - Eye Eye exam: Present: EOMI Pupils: Present: ASHLY - ENT ENT exam: Present: normal exam - Neck Neck exam: Present: normal inspection - Respiratory Respiratory exam: Present: clear to auscultation bilaterally. Absent: rhonchi, wheezes - Cardiovascular Cardiovascular exam: Present: regular rate and rhythm - GI/Abdominal GI/Abdominal exam: Present: normal bowel sounds, soft - Extremities Exam Extremities exam: Present: edema - Back Exam Back exam: Present: normal inspection - Skin Skin exam: Present: warm, intact Results - Labs CBC & BMP: 04/19/17 04:10 04/19/17 04:10
--- NOTE | 2017-04-19 12:45 | Nephrology Progress Note ---
Nephrology - PN: Subj Interval history: He remains on the ventilator. No change in neurologic status Exam (PN)-Nephrology - Vital Signs Vital signs: Period Temp Pulse Resp BP Sys/Post Pulse Ox Last 24 Hr 96.7 F-97.8 F 56-80 11-26 129-184/61-113 96-100 Exam: Gen.: Unresponsive on ventilator ENT: Pupils equal round reactive to light. Neck: Supple. No JVD or bruit. Cardiovascular: Regular rate and rhythm. No murmur rub or gallop Lungs: Clear Abdomen: Soft. Nontender. Positive bowel sounds. No organomegaly Extremities: 2+ edema - Lab 04/19/17 04:10 04/19/17 04:10 Most recent lab results ABG pH 7.460 (7.35-7.45) H 04/19/17 03:10 ABG pCO2 30.2 MM HG (35-48) L 04/19/17 03:10 ABG pO2 175.0 MM HG (80-95) H 04/19/17 03:10 ABG HCO3 23.1 MMOL/L (20-26) 04/19/17 03:10 ABG O2 Saturation 99.8 % (95-100) 04/19/17 03:10 Calcium 6.6 MG/DL (8.5-10.1) L 04/19/17 04:10 Phosphorus 8.0 MG/DL (2.5-4.9) H 04/15/17 04:30 Magnesium 3.1 MG/DL (1.8-2.4) H 04/19/17 04:10 Assessment and Plan (1) Chronic kidney disease, stage IV (severe) Status: Chronic Assessment and plan: 61-year-old man admitted with: * CRF stage IV. Baseline creatinine mid threes * ARF on CRF. He was dialyzed yesterday. Renal function parameters improved as expected. No dialysis required today. Reevaluate tomorrow * Nephrotic syndrome * Diabetes mellitus * Cardiomyopathy * Cardiac arrest. * Anoxic brain injury. Current Visit: Yes (2) Acute respiratory failure Status: Acute Current Visit: Yes Qualifiers: Respiratory failure complication: hypoxia Qualified Code(s): J96.01 - Acute respiratory failure with hypoxia (3) Cardiac arrest Status: Acute Current Visit: Yes (4) Cellulitis and abscess of face Status: Acute Current Visit: No (5) Cardiomyopathy Status: Chronic Current Visit: No (6) Diabetes Status: Chronic Current Visit: No Qualifiers: Diabetes mellitus type: type 1 Diabetes mellitus complication status: with kidney complications Diabetes mellitus complication detail: with chronic kidney disease Chronic kidney disease stage: stage 4 (severe) Qualified Code (s): E10.22 - Type 1 diabetes mellitus with diabetic chronic kidney disease; N18.4 - Chronic kidney disease, stage 4 (severe) (7) Nephrotic syndrome Status: Chronic Current Visit: No
[2017-04-19] MEDS: hydrALAZINE 25 MG TABLET PO PRN (21:31)
[2017-04-20] MEDS: ALBUTEROL/IPRATROPIUM 3 ML NEB RESP TX SCH ×4 (00:16→19:35)
[2017-04-20] MEDS: INSULIN REGULAR 100 UNIT/ML SUBCUT SCH ×6 (03:03→21:00)
[2017-04-20] MEDS: PIPERACILLIN/TAZOBACTAM 3,375 MG in SODIUM CHLORIDE 0.9% 100 ML IV SCH ×2 (03:05→14:01)
[2017-04-20 03:46] LABS: Basophils % 0.2 % (0.0-0.8); Eosinophils # 0.2 10*3/uL (0.0-0.87); Eosinophils % 1.7 % (0.00-10.9); Hematocrit 28.6 VOL% (42.0-52.0); Hemoglobin 9.7 GM/DL (14.0-18.0); Immature Granulocytes % 0.5 %; Immature Granulocytes Absolute 0.06 #; Lymphocytes # 0.7 10*3/uL (1.4-4.0); Lymphocytes % 5.4 % (21.2-54.2); Mean Corpuscular HGB Conc 33.9 GM/DL (32-36); Mean Corpuscular Hemoglobin 29 PG (27-34); Mean Corpuscular Volume 85.4 FL (87-102); Mean Platelet Volume 10.3 FL (9.6-12.0); Monocytes # 0.5 10*3/uL (0.11-0.8); Monocytes % 3.7 % (1.7-12.7); Neutrophils # 11.4 10*3/uL (1.4-7.4); Neutrophils % 88.5 % (38.7-73.9); Platelet Count 174 T/CUMM (130-400); Red Blood Count 3.35 MC/CUMM (3.8-5.5); Red Cell Distribution Width 18.6 % (9.3-17.3); White Blood Count 12.9 T/CUMM (4-12)
[2017-04-20 03:52] LABS: Pt O2 Delivery Device Ventilator
[2017-04-20 03:53] LABS: ABG Base Excess -1.5 MMOL/L (-2.5-2.5); ABG HCO3 20.3 MMOL/L (20-26); ABG Oxygen Saturation 98.6 % (95-100); ABG PCO2 25.4 MM HG (35-48); ABG PO2 126.6 MM HG (80-95); ABG TCO2 21.1 MMOL/L (23-27)
[2017-04-20 04:06] LABS: Calcium 6.8 MG/DL (8.5-10.1); Magnesium 3.1 MG/DL (1.8-2.4); Osmolality,Calculated 307.8 MOS/KG (273-304); Phosphorous 5.8 MG/DL (2.5-4.9); Potassium 3.7 MMOL/L (3.5-5.1); Prealbumin 13.7 MG/DL (20-40)
[2017-04-20] MEDS: HEPARIN 5,000 UNIT/1 ML VIAL SUBCUT SCH (06:33)
--- NOTE | 2017-04-20 07:18 | Pulmonology Progress Note ---
Pulmonary - PN: Subj Interval history: This 61-year-old man had a cardiac arrest and has finished the [facility] protocol. He remains on the ventilator. He required higher settings of PEEP and FiO2 over the weekend but this morning his PO2 is 264 on 90% oxygen and 15 of PEEP. We can reduce both the FiO2 and PEEP and recheck ABGs this morning. He remains unresponsive. Apparently does have a bit of a gag reflex. Neurology is to review his case and see what they think about prognosis. Family has made him a DO NOT RESUSCITATE. 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 04/14/2017 patient remains unresponsive. Neurologic evaluation has indicated severe hypoxic brain injury. ABGs are improved. Chest x-ray is stable. Will reduce FiO2 and PEEP. Hopefully can start weaning trial soon. His renal function is getting worse with creatinine up to 6.9. Prognosis is grave. Continuing full support at present. 04/15/2017 patient remains unresponsive. ABGs a little better. Will reduce PEEP to 5 cm. Start weaning trials. Renal function getting worse by the day. Chest x-ray looks a little bit wet. Getting saline to try to maintain urine output. Prognosis grave. 04/16/2017 bloody secretions have come from his endotracheal tube. He has a right lower lobe infiltrate. He has grown Klebsiella from his sputum. He is on Zosyn for that already. Remains unresponsive. Prognosis is poor. Creatinine is 7.7. Patient has end-stage cardiomyopathy and is status post cardiac arrest. He has severe hypoxic brain injury. 04/17/17 ABGs look reasonable. Patient tolerating longer CPAP trials. Patient not able to defend his airway. There is some spontaneous movement but no purposeful movement and he does not respond to anything except painful stimulation. 04/18/2017 patient continues to be unresponsive. His eyes deviate to the right. No change in x-rays. ABGs look good. Creatinine 8.5. Continuing with CPAP trials, however patient not able to defend airway at this point. 04/19/2017 patient remains unresponsive. Eyes deviate to the right. He has some twitching in his left arm. I wonder if there is seizure activity. 04/20/2017 patient is doing some CPAP trials although his mental status is not good. He will require tracheostomy. Exam (Progress Note) - Constitutional Vitals: Period Temp Pulse Resp BP Sys/Opst Pulse Ox Last 24 Hr 97 F-97.6 F 56-92 10-33 113-178/56-113 96-100 Exam: Patient is unresponsive. His eyes continue to deviate towards the right. Vital signs normal. He does have some respiratory effort. He does not respond to painful stimulus. Pupils small irregular and sluggish. Face symmetrical. Orotracheal tube is in place. Neck is supple. Chest reveals a few rhonchi equal breath sounds. Heart normal rate rhythm no murmurs. Abdomen soft no masses. Extremities no clubbing cyanosis edema. Results - Labs CBC & BMP: 04/20/17 03:15 04/20/17 03:15 Lab Results: I have reviewed the past 24 hour labs - Diagnostic Findings Procedure: Chest x-ray: image reviewed by me (ET tube good position. Chest x- ray a little less wet) Assessment and Plan (1) Acute respiratory failure Status: Acute Assessment and plan: Patient is on the ventilator 100% oxygen. ABGs look good at present. Will reduce FiO2 to 60%. Certainly cannot start weaning until we see what his mental status is like and that will be after [facility] protocol. 04/13/17 ABGs improved. Will reduce FiO2 and PEEP a little. Prognosis is poor. 04/14/2017 ABGs improved. We can reduce both FiO2 and PEEP. Hopefully one would get his PEEP down to 6 we can start weaning. 04/15/2017 ABGs are better. Reducing PEEP. Start weaning. Mental status will guide us with weaning. 04/16/2017 patient starting to do CPAP. Mental status will guide us where to go later. If we are to continue long-term mechanical ventilatory support and would likely need a tracheostomy in a few days. 04/17/2017 tolerating prolonged CPAP trials. It appears that we will likely be doing a tracheostomy next week if no other changes. I do not think he can defend his airway at this point. 04/18/2017 patient continues to tolerate CPAP, however he is not alert and unable to defend his airway at this point. 04/19/2017 continuing with CPAP trials. ABGs improved. Reduce FiO2. Progressing with CPAP. Likely will need tracheostomy 04/20/2017 patient tolerating CPAP trials but would not be able to defend his airway. Will proceed with ENT consult for tracheostomy. Current Visit: Yes Qualifiers: Respiratory failure complication: hypoxia Qualified Code(s): J96.01 - Acute respiratory failure with hypoxia (2) Cardiac arrest Status: Acute Assessment and plan: Patient had a cardiac arrest last night. He has known severe cardiomyopathy. Did not have any known electrolyte imbalance. Does have chronic renal failure with a creatinine now around 5. He would be at increased risk for a pulmonary embolism. 04/13/17 it appears that he has had significant brain injury. Await neurologic evaluation. 04/14/2017 and apparent severe hypoxic brain injury. See neurology note 04/15/2017 apparent severe hypoxic brain injury. 04/16/2017 continues to exhibit signs of severe hypoxic brain injury. 04/17/2017 severe brain injury. 04/18/2017 again continues to show signs of hypoxic brain injury. Responds to painful stimulus. Does not follow with his eyes. Does not respond to questions. Eyes deviate to the right. 04/19/2017 hypoxic brain injury. Patient is turning his head at times and moving all little but not in response to requests. Does not appear to be purposeful. 04/20/2017 patient has a severe cardiomyopathy. Has severe hypoxic brain injury post cardiac arrest. His family wants us to continue full support. Will need tracheostomy to wean off ventilator. He is not able to defend his airway. Current Visit: Yes (3) Chronic renal insufficiency Status: Chronic Assessment and plan: Creatinine has gone up from about 3.7-5 over the last few days. 04/13/17 creatinine up to 5.9 04/14/2017 creatinine is up to 6.9. Will start on some nasogastric feedings and IV fluids. 04/15/2017 creatinine up to 7.5. Defer to nephrology 04/16/2017 creatinine is 7.7. Perhaps it's levelling off. 04/17/2017 creatinine 8.1. Renal following 04/18/2017 creatinine 8.5 now. Bicarb level is 19. Potassium 4.8. He is making urine. 04/19/2017 patient started on dialysis yesterday. Chest x-ray looks a little bit less wet. 04/20/2017 defer to nephrology. He has been started on dialysis and his x-ray is looking a little better. Current Visit: Yes (4) Congestive heart failure Status: Chronic Assessment and plan: Systolic acute on chronic congestive failure due to severe cardiomyopathy. His troponins are not elevated so it does not appear that he had a myocardial infarction as the cause of his arrest last night. 04/13/17 x-ray shows increased interstitial markings consistent with congestive heart failure, but not brigida pulmonary edema. 04/14/2017 does not appear to be in pulmonary edema. 04/15/2017 appears to be developing pulmonary edema. However ABGs are better. IV fluids started yesterday by cardiology. 04/16/2017 this lobe infiltrate. Difficult to tell him what this is heart failure, which may be the Klebsiella pneumonia. He is on Zosyn. 04/17/2017 chest x-ray compatible with mild congestive heart failure. Also getting antibiotics for Klebsiella pneumonia 04/18/2017 severe cardiomyopathy. 04/19/2017 seems to be a little better after dialysis. 04/18/2017 again chest x-ray is a little better. Current Visit: Yes Qualifiers: Congestive heart failure type: unspecified congestive heart failure type Congestive heart failure chronicity: acute on chronic Qualified Code(s): I50.9 - Heart failure, unspecified (5) Cellulitis and abscess of face Status: Acute Assessment and plan: He has actually completed full course of treatment for the cellulitis. We need to be careful about vancomycin with his renal failure. Defer to ENT and nephrology on antibiotics and dosing. Current Visit: No (6) Nephrotic syndrome Status: Chronic Assessment and plan: He has peripheral edema. Low serum protein. Increased risk for DVT/PTED. Current Visit: No (7) Pulmonary embolism Status: Acute Assessment and plan: Perfusion lung scan suggestive of pulmonary embolism. Unable to obtain PE protocol CT scan due to renal failure. Patient is on empiric heparin infusion. 04/14/2017 continuing heparin for suspected pulmonary thromboembolic disease 04/15/2017 patient is on heparin. 04/16/2017 his perfusion lung scan was suggestive of pulmonary embolism. We do not have a definitive diagnosis. He has had some pulmonary hemorrhage. I stop the heparin yesterday. Difficult situation. 04/17/2017 this is not a definitive diagnosis which was suspected at the time of his arrest. He had nonspecifically abnormal VQ lung scan. We did not do a CT PE protocol because of the renal failure. His heparin has been held because of bloody pulmonary secretions. Continue to monitor. 04/18/2017 will put on subcu heparin. 04/19/2017 never clear-cut about whether he had an embolus. He had some pulmonary hemorrhage when fully anticoagulated. We now have all subcu heparin prophylactic doses. Now that he is on dialysis we can do a CT PE protocol and will consider that tomorrow. 04/20/2017 this is not a definite diagnosis. We are using DVT prophylaxis at present. It will be worthwhile at some point to get CT PE protocol now that he is on dialysis. Current Visit: Yes
--- NOTE | 2017-04-20 07:19 | XRay Report ---
Referring Physician: Alfred Lund Exam: XR chest 1V portable Date: April 20, 2017 at 2:58 AM Reason: Respiratory failure Comparison: Chest one view portable April 19, 2017 Findings: A right IJ catheter, endotracheal tube and feeding tube are again in place. The cardiac silhouette is again mildly enlarged. There are scattered opacities within the mid and lower lung zones bilaterally. This could represent pulmonary edema or pneumonia. No pneumothorax is identified, but there may be minimal left pleural fluid. The osseous structures appear stable. Contrast is noted within the stomach. Impression: There has been no significant change. PROCEDURE INTERPRETED AT [facility] DEPARTMENT OF RADIOLOGY Final Report Signed by: Dr. Ronak Nielson
[2017-04-20] MEDS: metOLazone 5 MG TABLET PO SCH (08:37)
[2017-04-20] MEDS: PANTOPRAZOLE 40 MG VIAL IV SCH (08:37)
[2017-04-20] MEDS: ASPIRIN EC 81 MG TABLET PO SCH (08:37)
[2017-04-20] MEDS: FUROSEMIDE 40 MG/4 ML VIAL IV SCH (08:37)
[2017-04-20] MEDS: CEFEPIME IV SCH (08:41)
[2017-04-20] MEDS: SODIUM CHLORIDE 0.9% IV SCH (08:41)
[2017-04-20] MEDS: MINERAL OIL/PETROLATUM OPH OINT 3.5 GM TUBE BOTH EYES SCH ×3 (08:46→21:00)
[2017-04-20] MEDS: DESITIN 4OZ/NYSTATIN 15 GRAM MIXTURE PASTE TOP SCH ×2 (08:50→23:16)
--- NOTE | 2017-04-20 10:27 | Cardiology Progress Note ---
Assessment and Plan - Time spent with patient Time spent with patient: Less than 30 minutes (1) Cardiomyopathy Status: Chronic Assessment and plan: SEE PLAN OF CARE LISTED BELOW. Current Visit: No (2) Acute respiratory failure Status: Acute Assessment and plan: SEE PLAN OF CARE LISTED BELOW. Current Visit: Yes Qualifiers: Respiratory failure complication: hypoxia Qualified Code(s): J96.01 - Acute respiratory failure with hypoxia (3) Cardiopulmonary arrest Status: Acute Assessment and plan: SEE PLAN OF CARE LISTED BELOW. Current Visit: Yes (4) Chronic kidney disease, stage IV (severe) Status: Chronic Assessment and plan: SEE PLAN OF CARE LISTED BELOW. Current Visit: Yes Cardiology - PN: Subj Interval history: PRIMARY SLOT AMBASSADOR: DR. JACKY TINAJERO PCP: [facility] Mr. Mantilla is a 61 year old male with a history of congestive heart failure, dyslipidemia, diabetes, hypertension, cardiomyopathy, chronic renal insufficiency stage IV. He was at [facility] in [facility] when he coded and was subsequently transferred to our facility. He was asystole for an extended period of time and was subsequently on the [facility] protocol. Following this, he has remained unresponsive with minimal response to deep pain stimuli. He remains on the ventilator but has no pupillary response. The family has been considering withdrawing support. He has a PEG tube and is receiving tube feedings. He has now been started on hemodialysis via right femoral hemodialysis catheter. He has been made a DNR. He is currently undergoing CPAP trials. Over the past several days, he has had no significant neurological or hemodynamic change. ASSESSMENT/PLAN: 1. CARDIOMYOPATHY - He has a nonischemic cardiomyopathy with EF in the 20% range. 2. ACUTE RESPIRATORY FAILURE - Pulmonology is following. He remains intubated on mechanical ventilation. Currently tolerating CPAP trials. He may require tracheostomy. 3. CARDIOPULMONARY ARREST - S/p hypothermic protocol. He remains hemodynamically stable and neurologically devastated. We are continuing with supportive care. Family has been considering withdrawal of care. 4. CHRONIC KIDNEY DISEASE, STAGE IV - This has been worsening since his cardiac arrest. He is being followed and managed by nephrology. He has been started on hemodialysis and is receiving this upon exam today. Creatinine and GFR have improved and are 6.5 and 11 respectively. Exam (Progress Note) - Constitutional Vitals: Period Temp Pulse Resp BP Sys/Post Pulse Ox Last 24 Hr 97 F-97.6 F 56-92 10-33 113-160/56-89 96-100 Exam: General appearance: Orally intubated on ventilator. Overweight. Hemodynamically stable. - Head Head exam: Present: normal inspection, normocephalic, atraumatic. Absent: hematoma, laceration - Eye Eye exam: Absent: conjunctival injection, nystagmus, periorbital swelling, scleral icterus, laceration to eyelids Pupils: Present: fixed. Absent: constricted, dilated, irregular, unequal - ENT ENT exam: Present: Orally intubated, normal external ear exam - Neck Neck exam: Present: normal inspection. Absent: lymphadenopathy, meningismus, tenderness, thyromegaly - Respiratory Respiratory exam: Present: Mechanically ventilated breath sounds. Absent: accessory muscle use - Cardiovascular Cardiovascular exam: Present: regular rate and rhythm. Absent: carotid bruit, gallop, JVD, rubs, murmur - GI/Abdominal GI/Abdominal exam: Present: normal bowel sounds, soft. Absent: distended, firm , guarding, hernia, mass, tenderness, rebound. - Extremities Exam Extremities exam: Present: normal inspection. Upper extremity pulses 2+. Lower extremity pulses diminished. 2+ BLE edema, 1-2+ BUE edema. Absent: calf tenderness - Back Exam Back exam: Present: Unable to examine due to habitus. On mechanical ventilator. - Neurological Exam Neurological exam: Present: Limited due to habitus (on ventilator). Withdraws from deep pain stimuli. No resting or essential tremor. - Psychiatric Psychiatric exam: Present: Unable to adequately assess due to patient being on mechanical ventilation. - Skin Skin exam: Present: warm, dry, intact. Absent: cyanosis, diaphoretic, rash, urticaria Result/EKG - Labs CBC & BMP: 04/20/17 03:15 04/20/17 03:15 Lab Results: I have reviewed the past 24 hour labs Labs: Laboratory Results - last 24 hr 04/19/17 04/19/17 04/19/17 11:53 15:48 19:42 WBC RBC Hgb Hct MCV MCH MCHC RDW Plt Count MPV Neut % (Auto) Lymph % (Auto) Troup % (Auto) Eos % (Auto) Baso % (Auto) Neut # (Auto) Lymph # (Auto) Troup # (Auto) Eos # (Auto) Baso # (Auto) Immature Gran % Nucleated RBC % Immature Gran # Nucleated RBCs # ABG pH ABG pCO2 ABG pO2 ABG HCO3 ABG Total CO2 ABG O2 Saturation ABG Base Excess FiO2 Sodium Potassium Chloride Carbon Dioxide Anion Gap BUN Creatinine GFR Calculation BUN/Creatinine Ratio Glucose POC Glucose 136 H 226 H 236 H Calculated Osmolality Calcium Phosphorus Magnesium Prealbumin Vancomycin Trough 04/20/17 04/20/17 04/20/17 00:10 03:15 03:15 WBC 12.9 H RBC 3.35 L Hgb 9.7 L Hct 28.6 L MCV 85.4 L MCH 29 MCHC 33.9 RDW 18.6 H Plt Count 174 MPV 10.3 Neut % (Auto) 88.5 H Lymph % (Auto) 5.4 L Troup % (Auto) 3.7 Eos % (Auto) 1.7 Baso % (Auto) 0.2 Neut # (Auto) 11.4 H Lymph # (Auto) 0.7 L Troup # (Auto) 0.5 Eos # (Auto) 0.2 Baso # (Auto) 0.0 Immature Gran % 0.5 Nucleated RBC % 0.0 Immature Gran # 0.06 Nucleated RBCs # 0.00 ABG pH ABG pCO2 ABG pO2 ABG HCO3 ABG Total CO2 ABG O2 Saturation ABG Base Excess FiO2 Sodium Potassium Chloride Carbon Dioxide Anion Gap BUN Creatinine GFR Calculation BUN/Creatinine Ratio Glucose POC Glucose 266 H Calculated Osmolality Calcium Phosphorus Magnesium Prealbumin Vancomycin Trough 15.8 04/20/17 04/20/17 04/20/17 03:15 03:35 04:04 WBC RBC Hgb Hct MCV MCH MCHC RDW Plt Count MPV Neut % (Auto) Lymph % (Auto) Troup % (Auto) Eos % (Auto) Baso % (Auto) Neut # (Auto) Lymph # (Auto) Troup # (Auto) Eos # (Auto) Baso # (Auto) Immature Gran % Nucleated RBC % Immature Gran # Nucleated RBCs # ABG pH 7.520 H ABG pCO2 25.4 L ABG pO2 126.6 H ABG HCO3 20.3 ABG Total CO2 21.1 L ABG O2 Saturation 98.6 ABG Base Excess -1.5 FiO2 35.00 Sodium 137 Potassium 3.7 Chloride 102 Carbon Dioxide 23 Anion Gap 15.7 H BUN 80 H Creatinine 6.50 H GFR Calculation 11 BUN/Creatinine Ratio 12.00 Glucose 289 H POC Glucose 286 H Calculated Osmolality 307.8 H Calcium 6.8 L Phosphorus 5.8 H Magnesium 3.1 H Prealbumin 13.7 L Vancomycin Trough 04/20/17 07:57 WBC RBC Hgb Hct MCV MCH MCHC RDW Plt Count MPV Neut % (Auto) Lymph % (Auto) Troup % (Auto) Eos % (Auto) Baso % (Auto) Neut # (Auto) Lymph # (Auto) Troup # (Auto) Eos # (Auto) Baso # (Auto) Immature Gran % Nucleated RBC % Immature Gran # Nucleated RBCs # ABG pH ABG pCO2 ABG pO2 ABG HCO3 ABG Total CO2 ABG O2 Saturation ABG Base Excess FiO2 Sodium Potassium Chloride Carbon Dioxide Anion Gap BUN Creatinine GFR Calculation BUN/Creatinine Ratio Glucose POC Glucose 266 H Calculated Osmolality Calcium Phosphorus Magnesium Prealbumin Vancomycin Trough - EKG EKG results: interpreted by me, sinus rhythm
--- NOTE | 2017-04-20 10:47 | Nephrology Progress Note ---
Nephrology - PN: Subj Interval history: He is seen during dialysis. He remains on the ventilator. Blood pressure is stable Exam (PN)-Nephrology - Vital Signs Vital signs: Period Temp Pulse Resp BP Sys/Post Pulse Ox Last 24 Hr 97 F-97.6 F 56-92 10-33 113-160/56-89 96-100 Exam: Gen.: Not responsive. On ventilator ENT: Pupils sluggishly reactive Neck: Supple. No JVD or bruit. Cardiovascular: Regular rate and rhythm. No murmur rub or gallop Lungs: Clear Abdomen: Soft. Nontender. Positive bowel sounds. No organomegaly Extremities: No edema - Lab 04/20/17 03:15 04/20/17 03:15 Most recent lab results ABG pH 7.520 (7.35-7.45) H 04/20/17 03:35 ABG pCO2 25.4 MM HG (35-48) L 04/20/17 03:35 ABG pO2 126.6 MM HG (80-95) H 04/20/17 03:35 ABG HCO3 20.3 MMOL/L (20-26) 04/20/17 03:35 ABG O2 Saturation 98.6 % (95-100) 04/20/17 03:35 Calcium 6.8 MG/DL (8.5-10.1) L 04/20/17 03:15 Phosphorus 5.8 MG/DL (2.5-4.9) H 04/20/17 03:15 Magnesium 3.1 MG/DL (1.8-2.4) H 04/20/17 03:15 Assessment and Plan (1) Chronic kidney disease, stage IV (severe) Status: Chronic Assessment and plan: 61-year-old man admitted with: * CRF stage IV. Baseline creatinine mid threes * ARF on CRF. He remains oliguric. He is stable during dialysis today * Nephrotic syndrome * Diabetes mellitus * Cardiomyopathy * Cardiac arrest. * Anoxic brain injury. Current Visit: Yes (2) Acute respiratory failure Status: Acute Current Visit: Yes Qualifiers: Qualified Code(s): J96.01 - Acute respiratory failure with hypoxia (3) Cardiac arrest Status: Acute Current Visit: Yes (4) Cellulitis and abscess of face Status: Acute Current Visit: No (5) Cardiomyopathy Status: Chronic Current Visit: No (6) Diabetes Status: Chronic Current Visit: No Qualifiers: Qualified Code(s): E10.22 - Type 1 diabetes mellitus with diabetic chronic kidney disease; N18.4 - Chronic kidney disease, stage 4 (severe) (7) Nephrotic syndrome Status: Chronic Current Visit: No
[2017-04-20] MEDS ORDERED: HEPARIN 10,000 UNIT/10 ML VIAL IV SCH (11:00)
[2017-04-20] MEDS ORDERED: VANCOMYCIN INJ 1,500 MG in SODIUM CHLORIDE 0.9% 500 ML IV ONE (12:00)
--- NOTE | 2017-04-20 12:08 | Hospitalist Progress Note ---
Assessment and Plan (1) Diabetes Status: Chronic Assessment and plan: SSI Will start low dose lantus today Current Visit: No Qualifiers: Diabetes mellitus type: type 1 Diabetes mellitus complication status: with kidney complications Diabetes mellitus complication detail: with chronic kidney disease Chronic kidney disease stage: stage 4 (severe) Qualified Code (s): E10.22 - Type 1 diabetes mellitus with diabetic chronic kidney disease; N18.4 - Chronic kidney disease, stage 4 (severe) (2) Respiratory failure Status: Resolved Assessment and plan: Pulmonary managing Trach tomorrow by ENT Current Visit: No Qualifiers: Chronicity: acute (3) Systolic CHF, acute on chronic Status: Acute Assessment and plan: Cardiology assisting On lasix and metolazone Current Visit: No (4) Cardiac arrest Status: Acute Current Visit: Yes (5) Acute kidney injury superimposed on chronic kidney disease Status: Acute Assessment and plan: Started HD 04/18/17 Current Visit: Yes (6) Anoxic brain injury Status: Acute Current Visit: Yes Hospitalist: Subjective Interval history: No acute events overnight. Undergoing HD this am. No change in his mental status. Pulmonary managing vent weaning. Plan is for trach tomorrow by ENT. Neurology has been reconsulted due to concern for possible seizure activity. Exam - Constitutional Vitals: Period Temp Pulse Resp BP Sys/Post Pulse Ox Last 24 Hr 97 F-97.6 F 57-92 10-33 108-160/49-89 96-100 General appearance: normal weight - Head Head exam: Present: normocephalic, atraumatic - ENT ENT exam: Present: normal exam - Expanded ENT Exam Mouth exam: Present: moist Throat exam: Present: normal inspection (Obscured exam no gross lesions or lacerations) - Neck Neck exam: Present: normal inspection - Respiratory Respiratory exam: Present: clear to auscultation bilaterally. Absent: wheezes - Cardiovascular Cardiovascular exam: Present: regular rate and rhythm - GI/Abdominal GI/Abdominal exam: Present: normal bowel sounds, soft - Extremities Exam Extremities exam: Present: edema - Neurological Exam Neurological exam: Present: other (unresponsive) - Skin Skin exam: Present: warm, intact Results - Labs CBC & BMP: 04/20/17 03:15 04/20/17 03:15
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
[2017-04-20] MEDS ORDERED: LORazepam 2 MG/1 ML VIAL IV ONE (13:36)
--- NOTE | 2017-04-20 14:08 | Neurology Progress Note ---
Neurology - PN : Subjective Interval history: Neurology is reconsulted because of continuous left upper extremity jerking and shaking. This started 24 hours ago. Patient is still not waking up. His eyes are open but he is totally encephalopathic Exam (Progress Note) - Constitutional Vitals: Period Temp Pulse Resp BP Sys/Post Pulse Ox Last 24 Hr 97.0 F-97.6 F 63-92 10-33 108-160/49-89 96-100 Exam: GENERAL: Patient is in no acute distress. NECK: Neck is supple. There is no JVD. No carotid bruits present. No thyroid masses. CVS: First and second heart sounds are normal. There is no S3 present. Regular rate and rhythm. RESPIRATORY: Lungs are clear to auscultation without any rales or rhonchi. ABDOMEN: Soft and non-tender. Bowel sounds are present. There is no hepatosplenomegaly. EXT: There is no palpable edema. Peripheral pulses are present. Skin: No rashes Central Nervous system: General: Awake Speech: None Comprehension: None Facial expressions: Normal Cranial Nerves: Pupils are small and nonreactive. Doll's head eye movements are negative. No facial asymmetry seen. Corneals are absent. Motor: Bulk and Tone is normal. Strength cannot be assessed. No withdrawal seen on painful stability Sensory: Cannot be assessed Reflexes: 1+ and symmetrical Cerebellar function: Cannot be assessed Toes: Equivocal Gait: Cannot be assessed Results - Labs CBC & BMP: 04/20/17 03:15 04/20/17 03:15 Assessment and Plan (1) Anoxic brain injury Status: Acute Assessment and plan: Anoxic brain injury secondary to cardiopulmonary arrest. Continue current supportive management as per family's request. Current Visit: Yes (2) Seizure disorder Status: Acute Assessment and plan: Ativan 3 mg 1 dose now Keppra 1 g IV followed by 5 mg IV every 8 Current Visit: Yes
[2017-04-20] MEDS: BACITRACIN OINT 0.9 GM PACK TOP SCH (15:52)
[2017-04-20] MEDS: INSULIN GLARGINE 100 UNIT/ML SUBCUT SCH (21:00)
[2017-04-21] MEDS: PIPERACILLIN/TAZOBACTAM 3,375 MG in SODIUM CHLORIDE 0.9% 100 ML IV SCH ×2 (00:23→13:03)
[2017-04-21] MEDS: INSULIN REGULAR 100 UNIT/ML SUBCUT SCH ×6 (00:23→21:30)
[2017-04-21] MEDS: ALBUTEROL/IPRATROPIUM 3 ML NEB RESP TX SCH ×4 (00:41→19:21)
[2017-04-21 02:22] LABS: Basophils % 0.2 % (0.0-0.8); Eosinophils # 0.6 10*3/uL (0.0-0.87); Eosinophils % 5.5 % (0.00-10.9); Hematocrit 25.6 VOL% (42.0-52.0); Hemoglobin 8.5 GM/DL (14.0-18.0); Immature Granulocytes % 0.4 %; Immature Granulocytes Absolute 0.04 #; Mean Corpuscular HGB Conc 33.2 GM/DL (32-36); Mean Corpuscular Hemoglobin 29 PG (27-34); Mean Corpuscular Volume 87.1 FL (87-102); Mean Platelet Volume 10.2 FL (9.6-12.0); Monocytes # 0.4 10*3/uL (0.11-0.8); Monocytes % 3.1 % (1.7-12.7); Neutrophils # 9.1 10*3/uL (1.4-7.4); Neutrophils % 81.8 % (38.7-73.9); Platelet Count 135 T/CUMM (130-400); Red Blood Count 2.94 MC/CUMM (3.8-5.5); Red Cell Distribution Width 18.5 % (9.3-17.3); White Blood Count 11.2 T/CUMM (4-12)
[2017-04-21 02:32] LABS: INR 1.1; Partial Thromboplastin Time 36.4 SECS (0-40)
[2017-04-21 03:02] LABS: Albumin 1.8 G/DL (3.4-5.0); Bilirubin,Direct 0.2 MG/DL (0.0-0.20); Bilirubin,Indirect 0.3 MG/DL (0.0-1.0); Bilirubin,Total 0.5 MG/DL (0.2-1.0); Calcium 6.9 MG/DL (8.5-10.1); Magnesium 2.6 MG/DL (1.8-2.4); Osmolality,Calculated 295.4 MOS/KG (273-304); Potassium 3.5 MMOL/L (3.5-5.1); Total Protein 5.7 G/DL (6.4-8.3)
--- NOTE | 2017-04-21 06:40 | Pulmonology Progress Note ---
Pulmonary - PN: Subj Interval history: This 61-year-old man had a cardiac arrest and has finished the [facility] protocol. He remains on the ventilator. He required higher settings of PEEP and FiO2 over the weekend but this morning his PO2 is 264 on 90% oxygen and 15 of PEEP. We can reduce both the FiO2 and PEEP and recheck ABGs this morning. He remains unresponsive. Apparently does have a bit of a gag reflex. Neurology is to review his case and see what they think about prognosis. Family has made him a DO NOT RESUSCITATE. 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 04/14/2017 patient remains unresponsive. Neurologic evaluation has indicated severe hypoxic brain injury. ABGs are improved. Chest x-ray is stable. Will reduce FiO2 and PEEP. Hopefully can start weaning trial soon. His renal function is getting worse with creatinine up to 6.9. Prognosis is grave. Continuing full support at present. 04/15/2017 patient remains unresponsive. ABGs a little better. Will reduce PEEP to 5 cm. Start weaning trials. Renal function getting worse by the day. Chest x-ray looks a little bit wet. Getting saline to try to maintain urine output. Prognosis grave. 04/16/2017 bloody secretions have come from his endotracheal tube. He has a right lower lobe infiltrate. He has grown Klebsiella from his sputum. He is on Zosyn for that already. Remains unresponsive. Prognosis is poor. Creatinine is 7.7. Patient has end-stage cardiomyopathy and is status post cardiac arrest. He has severe hypoxic brain injury. 04/17/17 ABGs look reasonable. Patient tolerating longer CPAP trials. Patient not able to defend his airway. There is some spontaneous movement but no purposeful movement and he does not respond to anything except painful stimulation. 04/18/2017 patient continues to be unresponsive. His eyes deviate to the right. No change in x-rays. ABGs look good. Creatinine 8.5. Continuing with CPAP trials, however patient not able to defend airway at this point. 04/19/2017 patient remains unresponsive. Eyes deviate to the right. He has some twitching in his left arm. I wonder if there is seizure activity. 04/20/2017 patient is doing some CPAP trials although his mental status is not good. He will require tracheostomy. 04/21/2017 patient was having some twitching activity yesterday. He was seen by Dr. Ulloa. Started on seizure medications. Still no signs of neurologic recovery. Patient is to have tracheostomy today. Consider LTAC transfer after that. Exam (Progress Note) - Constitutional Vitals: Period Temp Pulse Resp BP Sys/Post Pulse Ox Last 24 Hr 96.6 F-98.2 F 63-90 0-29 97-138/49-72 96-100 Exam: Patient is unresponsive. His eyes continue to deviate and not to follow. Vital signs normal. He does have some respiratory effort. He does not respond to painful stimulus. Pupils small irregular and sluggish. Face symmetrical. Orotracheal tube is in place. Neck is supple. Chest reveals a few rhonchi equal breath sounds. Heart normal rate rhythm no murmurs. Abdomen soft no masses. Extremities no clubbing cyanosis edema. Results - Labs CBC & BMP: 04/21/17 02:10 04/21/17 02:10 Lab Results: I have reviewed the past 24 hour labs Assessment and Plan (1) Acute respiratory failure Status: Acute Assessment and plan: Patient is on the ventilator 100% oxygen. ABGs look good at present. Will reduce FiO2 to 60%. Certainly cannot start weaning until we see what his mental status is like and that will be after [facility] protocol. 04/13/17 ABGs improved. Will reduce FiO2 and PEEP a little. Prognosis is poor. 04/14/2017 ABGs improved. We can reduce both FiO2 and PEEP. Hopefully one would get his PEEP down to 6 we can start weaning. 04/15/2017 ABGs are better. Reducing PEEP. Start weaning. Mental status will guide us with weaning. 04/16/2017 patient starting to do CPAP. Mental status will guide us where to go later. If we are to continue long-term mechanical ventilatory support and would likely need a tracheostomy in a few days. 04/17/2017 tolerating prolonged CPAP trials. It appears that we will likely be doing a tracheostomy next week if no other changes. I do not think he can defend his airway at this point. 04/18/2017 patient continues to tolerate CPAP, however he is not alert and unable to defend his airway at this point. 04/19/2017 continuing with CPAP trials. ABGs improved. Reduce FiO2. Progressing with CPAP. Likely will need tracheostomy 04/20/2017 patient tolerating CPAP trials but would not be able to defend his airway. Will proceed with ENT consult for tracheostomy. 04/21/2017 ABGs are pending but so far we have been able to relate him fairly easily. He is for tracheostomy today. Reasonable to continue ventilatory support for a couple of weeks. His family is seeing some motion that they are interpreting as purposeful. I have not seen any purposeful motion. He does have some seizure activity. Current Visit: Yes Qualifiers: Respiratory failure complication: hypoxia Qualified Code(s): J96.01 - Acute respiratory failure with hypoxia (2) Cardiac arrest Status: Acute Assessment and plan: Patient had a cardiac arrest last night. He has known severe cardiomyopathy. Did not have any known electrolyte imbalance. Does have chronic renal failure with a creatinine now around 5. He would be at increased risk for a pulmonary embolism. 04/13/17 it appears that he has had significant brain injury. Await neurologic evaluation. 04/14/2017 and apparent severe hypoxic brain injury. See neurology note 04/15/2017 apparent severe hypoxic brain injury. 04/16/2017 continues to exhibit signs of severe hypoxic brain injury. 04/17/2017 severe brain injury. 04/18/2017 again continues to show signs of hypoxic brain injury. Responds to painful stimulus. Does not follow with his eyes. Does not respond to questions. Eyes deviate to the right. 04/19/2017 hypoxic brain injury. Patient is turning his head at times and moving all little but not in response to requests. Does not appear to be purposeful. 04/20/2017 patient has a severe cardiomyopathy. Has severe hypoxic brain injury post cardiac arrest. His family wants us to continue full support. Will need tracheostomy to wean off ventilator. He is not able to defend his airway. 04/21/2017 severe cardiomyopathy hypoxic brain injury. We had considered pulmonary embolus before. He is off anticoagulants now because of some pulmonary hemorrhage. Will obtain a CT PE protocol once he gets the trach done. Current Visit: Yes (3) Chronic renal insufficiency Status: Chronic Assessment and plan: Creatinine has gone up from about 3.7-5 over the last few days. 04/13/17 creatinine up to 5.9 04/14/2017 creatinine is up to 6.9. Will start on some nasogastric feedings and IV fluids. 04/15/2017 creatinine up to 7.5. Defer to nephrology 04/16/2017 creatinine is 7.7. Perhaps it's levelling off. 04/17/2017 creatinine 8.1. Renal following 04/18/2017 creatinine 8.5 now. Bicarb level is 19. Potassium 4.8. He is making urine. 04/19/2017 patient started on dialysis yesterday. Chest x-ray looks a little bit less wet. 04/20/2017 defer to nephrology. He has been started on dialysis and his x-ray is looking a little better. 04/21/2017 continuing dialysis. Current Visit: Yes (4) Congestive heart failure Status: Chronic Assessment and plan: Systolic acute on chronic congestive failure due to severe cardiomyopathy. His troponins are not elevated so it does not appear that he had a myocardial infarction as the cause of his arrest last night. 04/13/17 x-ray shows increased interstitial markings consistent with congestive heart failure, but not brigida pulmonary edema. 04/14/2017 does not appear to be in pulmonary edema. 04/15/2017 appears to be developing pulmonary edema. However ABGs are better. IV fluids started yesterday by cardiology. 04/16/2017 this lobe infiltrate. Difficult to tell him what this is heart failure, which may be the Klebsiella pneumonia. He is on Zosyn. 04/17/2017 chest x-ray compatible with mild congestive heart failure. Also getting antibiotics for Klebsiella pneumonia 04/18/2017 severe cardiomyopathy. 04/19/2017 seems to be a little better after dialysis. 04/20/2017 again chest x-ray is a little better. 04/21/2017 improved with dialysis. Current Visit: Yes Qualifiers: Congestive heart failure type: unspecified congestive heart failure type Congestive heart failure chronicity: acute on chronic Qualified Code(s): I50.9 - Heart failure, unspecified (5) Cellulitis and abscess of face Status: Acute Assessment and plan: He has actually completed full course of treatment for the cellulitis. We need to be careful about vancomycin with his renal failure. Defer to ENT and nephrology on antibiotics and dosing. Current Visit: No (6) Nephrotic syndrome Status: Chronic Assessment and plan: He has peripheral edema. Low serum protein. Increased risk for DVT/PTED. Current Visit: No (7) Pulmonary embolism Status: Acute Assessment and plan: Perfusion lung scan suggestive of pulmonary embolism. Unable to obtain PE protocol CT scan due to renal failure. Patient is on empiric heparin infusion. 04/14/2017 continuing heparin for suspected pulmonary thromboembolic disease 04/15/2017 patient is on heparin. 04/16/2017 his perfusion lung scan was suggestive of pulmonary embolism. We do not have a definitive diagnosis. He has had some pulmonary hemorrhage. I stop the heparin yesterday. Difficult situation. 04/17/2017 this is not a definitive diagnosis which was suspected at the time of his arrest. He had nonspecifically abnormal VQ lung scan. We did not do a CT PE protocol because of the renal failure. His heparin has been held because of bloody pulmonary secretions. Continue to monitor. 04/18/2017 will put on subcu heparin. 04/19/2017 never clear-cut about whether he had an embolus. He had some pulmonary hemorrhage when fully anticoagulated. We now have all subcu heparin prophylactic doses. Now that he is on dialysis we can do a CT PE protocol and will consider that tomorrow. 04/20/2017 this is not a definite diagnosis. We are using DVT prophylaxis at present. It will be worthwhile at some point to get CT PE protocol now that he is on dialysis. 04/21/2017 this is a questionable diagnosis. Plan CT PE protocol either later today or tomorrow. Current Visit: Yes
[2017-04-21 07:09] LABS: Allen Test Positive; Pt O2 Delivery Device Ventilator
[2017-04-21 07:10] LABS: ABG Base Excess -0.7 MMOL/L (-2.5-2.5); ABG HCO3 23.9 MMOL/L (20-26); ABG Oxygen Saturation 98.4 % (95-100); ABG PCO2 33.2 MM HG (35-48); ABG PH 7.447 (7.35-7.45); ABG PO2 97.9 MM HG (80-95); ABG TCO2 21.3 MMOL/L (23-27)
--- NOTE | 2017-04-21 08:28 | XRay Report ---
XR chest 1V portable Indication: Ventilator Comparison: Chest x-ray dated April 20, 2017 Technique: Single frontal view of the chest Findings: Endotracheal tube stable in positioning. Continued cardiomegaly. Mildly progressed hazy opacification throughout the left lung and right lung base suggesting worsening pulmonary edema or pneumonia. Suspect small layering bilateral pleural fluid. Osseous and surrounding soft tissue structures appear grossly unchanged. IMPRESSION: As above. PROCEDURE INTERPRETED AT [facility] DEPARTMENT OF RADIOLOGY Final Report Signed by: Dr Austin Galindo
[2017-04-21] MEDS: METOPROLOL TARTRATE 25 MG TABLET PO SCH ×2 (08:30→21:56)
[2017-04-21] MEDS: CEFEPIME IV SCH (08:33)
[2017-04-21] MEDS: SODIUM CHLORIDE 0.9% IV SCH (08:33)
[2017-04-21] MEDS: MINERAL OIL/PETROLATUM OPH OINT 3.5 GM TUBE BOTH EYES SCH ×3 (08:34→21:56)
[2017-04-21] MEDS: BACITRACIN OINT 0.9 GM PACK TOP SCH (08:34)
[2017-04-21] MEDS: PANTOPRAZOLE 40 MG VIAL IV SCH (08:34)
[2017-04-21] MEDS: FUROSEMIDE 40 MG/4 ML VIAL IV SCH (08:34)
[2017-04-21] MEDS: DESITIN 4OZ/NYSTATIN 15 GRAM MIXTURE PASTE TOP SCH ×2 (08:35→21:56)
--- NOTE | 2017-04-21 08:41 | Hospitalist Progress Note ---
Hospitalist: Subjective Interval history: Pt had trach today. reportedly mass noted and has plans for FOB in am. No fever. Bleeding from trach at this time. No overnight events otherwise reported. Exam - Constitutional Vitals: Period Temp Pulse Resp BP Sys/Post Pulse Ox Last 24 Hr 96.6 F-98.2 F 63-90 0-29 97-138/49-72 97-100 Exam: GEN: Tape over eyes bilaterally. Chronically ill appearing, sedated on the vent CV: RR no M LUNGS: occasional coarse BS bilaterally, nonlabored ABD: Soft, hypoactive bowel sounds. No masses or HSM appreciated EXT: warm no c/c/e - Expanded ENT Exam Mouth exam: Present: moist Throat exam: Present: normal inspection (Obscured exam no gross lesions or lacerations) Results - Labs CBC & BMP: 04/21/17 02:10 04/21/17 02:10 - Impressions (1) Respiratory failure with Klebsiella PNA Status: Acute Assessment and plan: - Pulmonary managing vent - Trach 04/21 by ENT - Cont Zosyn, bronchodilators, vent support/ oxygen Current Visit: No Qualifiers: Chronicity: acute (2) Anoxic brain injury Status: Acute Current Visit: Yes - Neurology has seen and suspects poor prognosis for recovery. - Monitor neuro status (3) Suspected seizure disorder - s/p Ativan 3g IV x 1, Keppra IV q8h - Seizure precautions (4) Diabetes mellitus Status: Chronic Assessment and plan: SSI Cont low dose lantus today Current Visit: No Qualifiers: Diabetes mellitus type: type 1 Diabetes mellitus complication status: with kidney complications Diabetes mellitus complication detail: with chronic kidney disease Chronic kidney disease stage: stage 4 (severe) Qualified Code (s): E10.22 - Type 1 diabetes mellitus with diabetic chronic kidney disease; N18.4 - Chronic kidney disease, stage 4 (severe) (5) Systolic CHF, acute on chronic- appears better compensated Status: Acute Assessment and plan: Cardiology assisting On lasix and metolazone. Check serial labs Current Visit: No (6) S/P Cardiac arrest Status: Acute Current Visit: Yes (7) Acute kidney injury superimposed on chronic kidney disease suspected stage 4 Status: Acute Assessment and plan: Started HD 04/18/17. Renal following Current Visit: Yes (8) ?Cricoid mass - plans for bronch and bx in am 04/22 DVT prophylaxis - Heparin SQ q12h (hold for now with bleeding). SCDs. Labs in am D/W nurse and all questions answered. 34 minutes spent with this patient.
--- NOTE | 2017-04-21 08:57 | Cardiology Progress Note ---
Assessment and Plan (1) Cardiomyopathy Status: Chronic Assessment and plan: SEE PLAN OF CARE LISTED BELOW. Current Visit: No (2) Acute respiratory failure Status: Acute Assessment and plan: SEE PLAN OF CARE LISTED BELOW. Current Visit: Yes Qualifiers: Respiratory failure complication: hypoxia Qualified Code(s): J96.01 - Acute respiratory failure with hypoxia (3) Cardiopulmonary arrest Status: Acute Assessment and plan: SEE PLAN OF CARE LISTED BELOW. Current Visit: Yes (4) Chronic kidney disease, stage IV (severe) Status: Chronic Assessment and plan: SEE PLAN OF CARE LISTED BELOW. Current Visit: Yes Cardiology - PN: Subj Interval history: PRIMARY DETECTIVE SUPERVISOR: DR. JACKY TINAJERO PCP: [facility] Mr. Mantilla is a 61 year old male with a history of congestive heart failure, dyslipidemia, diabetes, hypertension, cardiomyopathy, chronic renal insufficiency stage IV. He was at [facility] in [facility] when he coded and was subsequently transferred to our facility. He was asystole for an extended period of time and was subsequently on the [facility] protocol. Following this, he has remained unresponsive with minimal response to deep pain stimuli. He remains on the ventilator but has no pupillary response. The family has been considering withdrawing support. He has a PEG tube and is receiving tube feedings. He has now been started on hemodialysis via right femoral hemodialysis catheter. He has been made a DNR. He is currently undergoing CPAP trials. Over the past several days, he has had no significant neurological or hemodynamic change. He's had some twitching and sometimes opens his eyes, but completely unresponsive off sedation. Continue supportive measures. We have started him on a low dose beta-love. If his blood pressure tolerates, would recommend increasing the dosage. He had an episode of NSVT during the night. At this time, we have nothing further to add and will sign off. Pleas feel free to reconsult us if we can be of further assistance or if new cardiac issues arise. Thank you for allowing us to participate in Mr. Mantilla's care. ASSESSMENT/PLAN: 1. CARDIOMYOPATHY - He has a nonischemic cardiomyopathy with EF in the 20% range. If he makes meaningful recovery, he can be a candidate for ICD implant due to cardiomyopathy, cardiac arrest. 2. ACUTE RESPIRATORY FAILURE - Pulmonology is following. He remains intubated on mechanical ventilation. Currently tolerating CPAP trials. He was planned for tracheostomy today. 3. CARDIOPULMONARY ARREST - S/p hypothermic protocol. He remains hemodynamically stable and neurologically devastated. We are continuing with supportive care. Family has been considering withdrawal of care. Etiology of suspected asystolic cardiac arrest remains unclear, PE was suspected based on the moderate probability VQ scan, he was initially anticoagulated, which was then stopped due to bleeding. 4. CHRONIC KIDNEY DISEASE, STAGE IV - This has been worsening since his cardiac arrest. He is being followed and managed by nephrology. He has been started on hemodialysis. Creatinine and GFR have improved and are 5.3 and 14 respectively. Exam (Progress Note) - Constitutional Vitals: Period Temp Pulse Resp BP Sys/Post Pulse Ox Last 24 Hr 96.6 F-98.2 F 63-90 0-29 97-138/49-72 97-100 Exam: General appearance: Orally intubated on ventilator. Overweight. Hemodynamically stable. - Head Head exam: Present: normal inspection, normocephalic, atraumatic. Absent: hematoma, laceration - Eye Eye exam: Absent: conjunctival injection, nystagmus, periorbital swelling, scleral icterus, laceration to eyelids Pupils: Present: fixed. Absent: constricted, dilated, irregular, unequal - ENT ENT exam: Present: Orally intubated, normal external ear exam - Neck Neck exam: Present: normal inspection. Absent: lymphadenopathy, meningismus, tenderness, thyromegaly - Respiratory Respiratory exam: Present: Mechanically ventilated breath sounds. Absent: accessory muscle use - Cardiovascular Cardiovascular exam: Present: regular rate and rhythm. Absent: carotid bruit, gallop, JVD, rubs, murmur - GI/Abdominal GI/Abdominal exam: Present: normal bowel sounds, soft. Absent: distended, firm , guarding, hernia, mass, tenderness, rebound. - Extremities Exam Extremities exam: Present: normal inspection. Upper extremity pulses 2+. Lower extremity pulses diminished. 2+ BLE edema, 1-2+ BUE edema. Absent: calf tenderness - Back Exam Back exam: Present: Unable to examine due to habitus. On mechanical ventilator. - Neurological Exam Neurological exam: Present: Limited due to habitus (on ventilator). Withdraws from deep pain stimuli. No resting or essential tremor. - Psychiatric Psychiatric exam: Present: Unable to adequately assess due to patient being on mechanical ventilation. - Skin Skin exam: Present: warm, dry, intact. Absent: cyanosis, diaphoretic, rash, urticaria Result/EKG - Labs CBC & BMP: 04/21/17 02:10 04/21/17 02:10 Lab Results: I have reviewed the past 24 hour labs Labs: Laboratory Results - last 24 hr 04/20/17 04/20/17 04/20/17 11:50 15:45 20:31 WBC RBC Hgb Hct MCV MCH MCHC RDW Plt Count MPV Neut % (Auto) Lymph % (Auto) Scott % (Auto) Eos % (Auto) Baso % (Auto) Neut # (Auto) Lymph # (Auto) Scott # (Auto) Eos # (Auto) Baso # (Auto) Immature Gran % Nucleated RBC % Immature Gran # Nucleated RBCs # INR PT Patient/Control Mix Circ Anticoag PTT ABG pH ABG pCO2 ABG pO2 ABG HCO3 ABG Total CO2 ABG O2 Saturation ABG Base Excess FiO2 Sodium Potassium Chloride Carbon Dioxide Anion Gap BUN Creatinine GFR Calculation BUN/Creatinine Ratio Glucose POC Glucose 144 H 145 H 224 H Calculated Osmolality Calcium Magnesium Total Bilirubin Direct Bilirubin Indirect Bilirubin AST ALT Alkaline Phosphatase Total Protein Albumin 04/20/17 04/21/17 04/21/17 23:38 02:10 02:10 WBC 11.2 RBC 2.94 L Hgb 8.5 L Hct 25.6 L MCV 87.1 MCH 29 MCHC 33.2 RDW 18.5 H Plt Count 135 D MPV 10.2 Neut % (Auto) 81.8 H Lymph % (Auto) 9.0 L Scott % (Auto) 3.1 Eos % (Auto) 5.5 Baso % (Auto) 0.2 Neut # (Auto) 9.1 H Lymph # (Auto) 1.0 L Scott # (Auto) 0.4 Eos # (Auto) 0.6 Baso # (Auto) 0.0 Immature Gran % 0.4 Nucleated RBC % 0.0 Immature Gran # 0.04 Nucleated RBCs # 0.00 INR 1.1 PT Patient/Control Mix 12.0 Circ Anticoag PTT 36.4 D ABG pH ABG pCO2 ABG pO2 ABG HCO3 ABG Total CO2 ABG O2 Saturation ABG Base Excess FiO2 Sodium Potassium Chloride Carbon Dioxide Anion Gap BUN Creatinine GFR Calculation BUN/Creatinine Ratio Glucose POC Glucose 177 H Calculated Osmolality Calcium Magnesium Total Bilirubin Direct Bilirubin Indirect Bilirubin AST ALT Alkaline Phosphatase Total Protein Albumin 04/21/17 04/21/17 04/21/17 02:10 03:57 04:37 WBC RBC Hgb Hct MCV MCH MCHC RDW Plt Count MPV Neut % (Auto) Lymph % (Auto) Scott % (Auto) Eos % (Auto) Baso % (Auto) Neut # (Auto) Lymph # (Auto) Scott # (Auto) Eos # (Auto) Baso # (Auto) Immature Gran % Nucleated RBC % Immature Gran # Nucleated RBCs # INR PT Patient/Control Mix Circ Anticoag PTT ABG pH ABG pCO2 ABG pO2 ABG HCO3 ABG Total CO2 ABG O2 Saturation ABG Base Excess FiO2 Sodium 140 Potassium 3.5 Chloride 106 Carbon Dioxide 24 Anion Gap 13.5 BUN 57 H D Creatinine 5.30 H GFR Calculation 14 BUN/Creatinine Ratio 10.00 Glucose 123 H POC Glucose 87 90 Calculated Osmolality 295.4 Calcium 6.9 L Magnesium 2.6 H Total Bilirubin 0.50 Direct Bilirubin 0.20 Indirect Bilirubin 0.3 AST 34 ALT 13 L Alkaline Phosphatase 191 H Total Protein 5.7 L Albumin 1.8 L 04/21/17 04/21/17 04/21/17 06:14 06:35 06:55 WBC RBC Hgb Hct MCV MCH MCHC RDW Plt Count MPV Neut % (Auto) Lymph % (Auto) Scott % (Auto) Eos % (Auto) Baso % (Auto) Neut # (Auto) Lymph # (Auto) Scott # (Auto) Eos # (Auto) Baso # (Auto) Immature Gran % Nucleated RBC % Immature Gran # Nucleated RBCs # INR PT Patient/Control Mix Circ Anticoag PTT ABG pH 7.447 ABG pCO2 33.2 L ABG pO2 97.9 H ABG HCO3 23.9 ABG Total CO2 21.3 L ABG O2 Saturation 98.4 ABG Base Excess -0.7 FiO2 35.00 Sodium Potassium Chloride Carbon Dioxide Anion Gap BUN Creatinine GFR Calculation BUN/Creatinine Ratio Glucose POC Glucose 62 L 137 H Calculated Osmolality Calcium Magnesium Total Bilirubin Direct Bilirubin Indirect Bilirubin AST ALT Alkaline Phosphatase Total Protein Albumin 04/21/17 07:42 WBC RBC Hgb Hct MCV MCH MCHC RDW Plt Count MPV Neut % (Auto) Lymph % (Auto) Scott % (Auto) Eos % (Auto) Baso % (Auto) Neut # (Auto) Lymph # (Auto) Scott # (Auto) Eos # (Auto) Baso # (Auto) Immature Gran % Nucleated RBC % Immature Gran # Nucleated RBCs # INR PT Patient/Control Mix Circ Anticoag PTT ABG pH ABG pCO2 ABG pO2 ABG HCO3 ABG Total CO2 ABG O2 Saturation ABG Base Excess FiO2 Sodium Potassium Chloride Carbon Dioxide Anion Gap BUN Creatinine GFR Calculation BUN/Creatinine Ratio Glucose POC Glucose 106 Calculated Osmolality Calcium Magnesium Total Bilirubin Direct Bilirubin Indirect Bilirubin AST ALT Alkaline Phosphatase Total Protein Albumin - EKG EKG results: interpreted by me, sinus rhythm
[2017-04-21] MEDS ORDERED: THROMBIN TOPICAL (RECOMBINANT) 5,000 UNIT VIAL TOP ONE (09:00)
[2017-04-21] MEDS ORDERED: LIDOCAINE 1%/EPI INJ 20 ML VIAL ONE (09:00)
[2017-04-21] MEDS ORDERED: ONDANSETRON 4 MG/2 ML VIAL ONE (09:30)
[2017-04-21] MEDS ORDERED: LIDOCAINE 1% 5 ML VIAL ONE (09:30)
[2017-04-21] MEDS ORDERED: PHENYLEPHRINE 1 MG/10 ML SYRINGE IV ONE (09:30)
[2017-04-21] MEDS ORDERED: PROPOFOL 200 MG/20 ML VIAL IV ONE (09:30)
[2017-04-21] MEDS ORDERED: ROCURONIUM 100 MG/10 ML VIAL IV ONE (09:30)
[2017-04-21] MEDS ORDERED: PHENYLEPHRINE DRIP 40 MG/250 ML PREMIX IV ONE (11:30)
--- NOTE | 2017-04-21 11:50 | Anesthesia Post-Op ---
Anesthesia Post OP - Post Ansesthetic Evaluation Patient seen in post op: Yes Resp: other (pt still on vent . But but was planned to stay on vent so NAC) CV: within normal limits Mental: within normal limits Temp: within normal limits [id number]: within normal limits Nausea and Vomiting: within normal limits Pain: within normal limits
[2017-04-21] MEDS ORDERED: SODIUM CHLORIDE 0.9% 250 ML IV ONE (11:51)
[2017-04-21] MEDS ORDERED: MIDAZOLAM 2 MG/2 ML VIAL ONE (11:51)
[2017-04-21] MEDS ORDERED: fentaNYL 100 MCG/2 ML VIAL ONE (11:51)
[2017-04-21] MEDS ORDERED: SEVOFLURANE 1 UNIT/15 MINUTE INH ONE (11:51)
[2017-04-21] MEDS: PHENYLEPHRINE DRIP 40 MG/250 ML PREMIX IV SCH (12:00)
[2017-04-21] MEDS: ASPIRIN EC 81 MG TABLET PO SCH (12:54)
[2017-04-21] MEDS: metOLazone 5 MG TABLET PO SCH (12:54)
--- NOTE | 2017-04-21 17:12 | Neurology Progress Note ---
Neurology - PN : Subjective Interval history: No more seizures reported. No jerking or tremors in the arm reported. Exam (Progress Note) - Constitutional Vitals: Period Temp Pulse Resp BP Sys/Post Pulse Ox Last 24 Hr 96.8 F-98.2 F 63-90 9-29 97-136/50-72 97-100 Exam: GENERAL: Patient is in no acute distress. NECK: Neck is supple. There is no JVD. No carotid bruits present. No thyroid masses. CVS: First and second heart sounds are normal. There is no S3 present. Regular rate and rhythm. RESPIRATORY: Lungs are clear to auscultation without any rales or rhonchi. ABDOMEN: Soft and non-tender. Bowel sounds are present. There is no hepatosplenomegaly. EXT: There is no palpable edema. Peripheral pulses are present. Skin: No rashes Central Nervous system: General: Awake Speech: None Comprehension: None Facial expressions: Normal Cranial Nerves: Pupils are small and nonreactive. Doll's head eye movements are negative. No facial asymmetry seen. Corneals are absent. Motor: Bulk and Tone is normal. Strength cannot be assessed. No withdrawal seen on painful stability Sensory: Cannot be assessed Reflexes: 1+ and symmetrical Cerebellar function: Cannot be assessed Toes: Equivocal Gait: Cannot be assessed Results - Labs CBC & BMP: 04/21/17 02:10 04/21/17 02:10 Assessment and Plan (1) Anoxic brain injury Status: Acute Assessment and plan: Anoxic brain injury secondary to cardiopulmonary arrest. Continue current supportive management as per family's request. Current Visit: Yes (2) Seizure disorder Status: Acute Assessment and plan: Continue Keppra 500 mg IV every 8 Current Visit: Yes
[2017-04-21 20:25] LABS: Apearance,Urine CLOUDY (Clear); Bilirubin,Urine Negative (Negative); Blood, Urine Large mg/dL (Negative); Glucose,Urine (UA) 50 mg/dL (Negative); Ketones,Urine Negative (Negative); Mucus,Urine Occasional /LPF (Occasional); Nitrite,Urine Negative (Negative); Protein,Urine 100 MG/DL; RBC,Urine 2365 /HPF (0-4); Squamous Epithelial Cell,Urine Occasional /HPF (0-10); Urine Color Yellow (Yellow); Urine Specific Gravity 1.006 (1.001-1.035); Urine Urobilinogen < 2.0 EU/DL (0.2-1.0); WBC,Urine 118 /HPF (0-6)
[2017-04-21] MEDS ORDERED: VANCOMYCIN INJ 1,500 MG in SODIUM CHLORIDE 0.9% 500 ML IV ONE (21:00)
[2017-04-21] MEDS: INSULIN GLARGINE 100 UNIT/ML SUBCUT SCH (21:56)
--- NOTE | 2017-04-21 22:39 | Nephrology Progress Note ---
Nephrology - PN: Subj Interval history: He has had tracheostomy placed today. No change in neurologic status Exam (PN)-Nephrology - Vital Signs Vital signs: Period Temp Pulse Resp BP Sys/Post Pulse Ox Last 24 Hr 96.9 F-98.2 F 64-90 9-29 96-139/47-85 97-100 Exam: Gen.: Responsive, on ventilator Neck: Supple. No JVD or bruit. The ostomy present Cardiovascular: Regular rate and rhythm. No murmur rub or gallop Lungs: Clear Abdomen: Soft. Nontender. Positive bowel sounds. No organomegaly Extremities: 2+ edema - Lab 04/21/17 02:10 04/21/17 02:10 Most recent lab results ABG pH 7.447 (7.35-7.45) 04/21/17 06:55 ABG pCO2 33.2 MM HG (35-48) L 04/21/17 06:55 ABG pO2 97.9 MM HG (80-95) H 04/21/17 06:55 ABG HCO3 23.9 MMOL/L (20-26) 04/21/17 06:55 ABG O2 Saturation 98.4 % (95-100) 04/21/17 06:55 Calcium 6.9 MG/DL (8.5-10.1) L 04/21/17 02:10 Phosphorus 5.8 MG/DL (2.5-4.9) H 04/20/17 03:15 Magnesium 2.6 MG/DL (1.8-2.4) H 04/21/17 02:10 Assessment and Plan (1) Chronic kidney disease, stage IV (severe) Status: Chronic Assessment and plan: 61-year-old man admitted with: * CRF stage IV. Baseline creatinine mid threes * ARF on CRF. He remains oliguric. No dialysis required today * Nephrotic syndrome * Diabetes mellitus * Cardiomyopathy * Cardiac arrest. * Ventilatory failure. Post tracheostomy * Anoxic brain injury. Current Visit: Yes (2) Acute respiratory failure Status: Acute Current Visit: Yes Qualifiers: Respiratory failure complication: hypoxia Qualified Code(s): J96.01 - Acute respiratory failure with hypoxia (3) Cardiac arrest Status: Acute Current Visit: Yes (4) Cellulitis and abscess of face Status: Acute Current Visit: No (5) Cardiomyopathy Status: Chronic Current Visit: No (6) Diabetes Status: Chronic Current Visit: No Qualifiers: Diabetes mellitus type: type 1 Diabetes mellitus complication status: with kidney complications Diabetes mellitus complication detail: with chronic kidney disease Chronic kidney disease stage: stage 4 (severe) Qualified Code (s): E10.22 - Type 1 diabetes mellitus with diabetic chronic kidney disease; N18.4 - Chronic kidney disease, stage 4 (severe) (7) Nephrotic syndrome Status: Chronic Current Visit: No
[2017-04-22] MEDS: INSULIN REGULAR 100 UNIT/ML SUBCUT SCH ×4 (00:30→22:07)
[2017-04-22] MEDS: ALBUTEROL/IPRATROPIUM 3 ML NEB RESP TX SCH ×4 (00:30→19:50)
[2017-04-22] MEDS: PIPERACILLIN/TAZOBACTAM 3,375 MG in SODIUM CHLORIDE 0.9% 100 ML IV SCH (00:31)
[2017-04-22 02:42] LABS: Basophils % 0.2 % (0.0-0.8); Eosinophils # 0.5 10*3/uL (0.0-0.87); Eosinophils % 4.1 % (0.00-10.9); Hematocrit 24.8 VOL% (42.0-52.0); Hemoglobin 7.9 GM/DL (14.0-18.0); Immature Granulocytes % 0.4 %; Immature Granulocytes Absolute 0.05 #; Lymphocytes # 0.9 10*3/uL (1.4-4.0); Lymphocytes % 6.9 % (21.2-54.2); Mean Corpuscular HGB Conc 31.9 GM/DL (32-36); Mean Corpuscular Hemoglobin 28 PG (27-34); Mean Corpuscular Volume 89.2 FL (87-102); Mean Platelet Volume 10.3 FL (9.6-12.0); Monocytes # 0.3 10*3/uL (0.11-0.8); Monocytes % 2.3 % (1.7-12.7); Neutrophils # 11.5 10*3/uL (1.4-7.4); Neutrophils % 86.1 % (38.7-73.9); Platelet Count 122 T/CUMM (130-400); Red Blood Count 2.78 MC/CUMM (3.8-5.5); Red Cell Distribution Width 18.7 % (9.3-17.3); White Blood Count 13.3 T/CUMM (4-12)
[2017-04-22 02:51] LABS: INR 1.2; PT Patient Result 12.3 SECS; Partial Thromboplastin Time 36.7 SECS (0-40)
[2017-04-22 03:05] LABS: Albumin 1.6 G/DL (3.4-5.0); Bilirubin,Total 0.4 MG/DL (0.2-1.0); Calcium 6.7 MG/DL (8.5-10.1); Magnesium 2.5 MG/DL (1.8-2.4); Phosphorous 3.4 MG/DL (2.5-4.9); Potassium 3.3 MMOL/L (3.5-5.1); Total Protein 5.5 G/DL (6.4-8.3)
[2017-04-22 03:32] LABS: Allen Test Positive; Pt O2 Delivery Device Ventilator
[2017-04-22 03:36] LABS: ABG Base Excess 0.5 MMOL/L (-2.5-2.5); ABG HCO3 24.9 MMOL/L (20-26); ABG Oxygen Saturation 99.2 % (95-100); ABG PCO2 34.4 MM HG (35-48); ABG PH 7.455 (7.35-7.45); ABG TCO2 22.5 MMOL/L (23-27)
--- NOTE | 2017-04-22 06:53 | XRay Report ---
Referring Physician: Jem Bhakta MD Exam: XR chest 1V portable Date: April 22, 2017 at 3:07 AM Reason: Ventilation Comparison: Chest one view portable April 21, 2017 Findings: A tracheostomy catheter is now in place. There is also a right IJ catheter with its distal tip likely at the right atrium. The patient is rotated to the left today, which makes evaluation of the left lung somewhat difficult. The heart is largely obscured but likely stable in size. There is now diffuse density within the left lung with scattered areas of mild residual aeration. There are also opacities within the right lower lung zone. This could represent pulmonary edema, atelectasis and/or pneumonia. Evaluate for neoplasm is limited in this setting, and follow-up is recommended to confirm resolution. No pneumothorax is identified, but there is minimal right pleural fluid and likely mild to moderate left pleural fluid. The osseous structures appear stable. Impression: 1. Interval placement of a tracheostomy catheter. 2. There is diffuse density at the left lung with mild scattered areas of residual aeration. This has increased since the previous study. There are also persistent opacities within the right lower lung zone. This could represent pulmonary edema, atelectasis and/or pneumonia. Pleural fluid is also suspected, left greater than right. PROCEDURE INTERPRETED AT [facility] DEPARTMENT OF RADIOLOGY Final Report Signed by: Dr. Ronak Nielson
--- NOTE | 2017-04-22 06:57 | Pulmonology Progress Note ---
Pulmonary - PN: Subj Interval history: This 61-year-old man had a cardiac arrest and has finished the [facility] protocol. He remains on the ventilator. He required higher settings of PEEP and FiO2 over the weekend but this morning his PO2 is 264 on 90% oxygen and 15 of PEEP. We can reduce both the FiO2 and PEEP and recheck ABGs this morning. He remains unresponsive. Apparently does have a bit of a gag reflex. Neurology is to review his case and see what they think about prognosis. Family has made him a DO NOT RESUSCITATE. 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 04/14/2017 patient remains unresponsive. Neurologic evaluation has indicated severe hypoxic brain injury. ABGs are improved. Chest x-ray is stable. Will reduce FiO2 and PEEP. Hopefully can start weaning trial soon. His renal function is getting worse with creatinine up to 6.9. Prognosis is grave. Continuing full support at present. 04/15/2017 patient remains unresponsive. ABGs a little better. Will reduce PEEP to 5 cm. Start weaning trials. Renal function getting worse by the day. Chest x-ray looks a little bit wet. Getting saline to try to maintain urine output. Prognosis grave. 04/16/2017 bloody secretions have come from his endotracheal tube. He has a right lower lobe infiltrate. He has grown Klebsiella from his sputum. He is on Zosyn for that already. Remains unresponsive. Prognosis is poor. Creatinine is 7.7. Patient has end-stage cardiomyopathy and is status post cardiac arrest. He has severe hypoxic brain injury. 04/17/17 ABGs look reasonable. Patient tolerating longer CPAP trials. Patient not able to defend his airway. There is some spontaneous movement but no purposeful movement and he does not respond to anything except painful stimulation. 04/18/2017 patient continues to be unresponsive. His eyes deviate to the right. No change in x-rays. ABGs look good. Creatinine 8.5. Continuing with CPAP trials, however patient not able to defend airway at this point. 04/19/2017 patient remains unresponsive. Eyes deviate to the right. He has some twitching in his left arm. I wonder if there is seizure activity. 04/20/2017 patient is doing some CPAP trials although his mental status is not good. He will require tracheostomy. 04/21/2017 patient was having some twitching activity yesterday. He was seen by Dr. Ulloa. Started on seizure medications. Still no signs of neurologic recovery. Patient is to have tracheostomy today. Consider LTAC transfer after that. 04/22/2017 patient had tracheostomy yesterday. Dr. Grajeda called me afterwards, stated that he saw something distally in the lower trachea. Plans were made for bronchoscopy this morning. X-ray this morning shows almost opacification of the left lung. He may have something in his left main bronchus. We plan to do bronchoscopy shortly. His mental status is unchanged. Likely will need to go to LTAC. Exam (Progress Note) - Constitutional Vitals: Period Temp Pulse Resp BP Sys/Post Pulse Ox Last 24 Hr 96.9 F-98 F 64-87 10-28 96-139/47-85 97-100 Exam: Patient is unresponsive. His eyes continue to deviate and not to follow. Vital signs normal. He does have some respiratory effort. He does not respond to painful stimulus. Pupils small irregular and sluggish. Face symmetrical. Orotracheal tube is in place. Neck is supple. Chest reveals a few rhonchi, decreased left breath sounds. Heart normal rate rhythm no murmurs. Abdomen soft no masses. Extremities no clubbing cyanosis edema. Results - Labs CBC & BMP: 04/22/17 02:25 04/22/17 02:25 Lab Results: I have reviewed the past 24 hour labs - Diagnostic Findings Procedure: Chest x-ray: image reviewed by me (Near opacification of left lung. Right lung is clear.) Assessment and Plan (1) Acute respiratory failure Status: Acute Assessment and plan: Patient is on the ventilator 100% oxygen. ABGs look good at present. Will reduce FiO2 to 60%. Certainly cannot start weaning until we see what his mental status is like and that will be after [facility] protocol. 04/13/17 ABGs improved. Will reduce FiO2 and PEEP a little. Prognosis is poor. 04/14/2017 ABGs improved. We can reduce both FiO2 and PEEP. Hopefully one would get his PEEP down to 6 we can start weaning. 04/15/2017 ABGs are better. Reducing PEEP. Start weaning. Mental status will guide us with weaning. 04/16/2017 patient starting to do CPAP. Mental status will guide us where to go later. If we are to continue long-term mechanical ventilatory support and would likely need a tracheostomy in a few days. 04/17/2017 tolerating prolonged CPAP trials. It appears that we will likely be doing a tracheostomy next week if no other changes. I do not think he can defend his airway at this point. 04/18/2017 patient continues to tolerate CPAP, however he is not alert and unable to defend his airway at this point. 04/19/2017 continuing with CPAP trials. ABGs improved. Reduce FiO2. Progressing with CPAP. Likely will need tracheostomy 04/20/2017 patient tolerating CPAP trials but would not be able to defend his airway. Will proceed with ENT consult for tracheostomy. 04/21/2017 ABGs are pending but so far we have been able to relate him fairly easily. He is for tracheostomy today. Reasonable to continue ventilatory support for a couple of weeks. His family is seeing some motion that they are interpreting as purposeful. I have not seen any purposeful motion. He does have some seizure activity. 04/22/2017 patient has done okay with CPAP's prior to the tracheostomy. He required pressors after that. He has opacification of the left long. Hopefully we can clear that up with bronchoscopy. Suspect mucous plugging or thrombi in the left mainstem. Current Visit: Yes Qualifiers: Respiratory failure complication: hypoxia Qualified Code(s): J96.01 - Acute respiratory failure with hypoxia (2) Cardiac arrest Status: Acute Assessment and plan: Patient had a cardiac arrest last night. He has known severe cardiomyopathy. Did not have any known electrolyte imbalance. Does have chronic renal failure with a creatinine now around 5. He would be at increased risk for a pulmonary embolism. 04/13/17 it appears that he has had significant brain injury. Await neurologic evaluation. 04/14/2017 and apparent severe hypoxic brain injury. See neurology note 04/15/2017 apparent severe hypoxic brain injury. 04/16/2017 continues to exhibit signs of severe hypoxic brain injury. 04/17/2017 severe brain injury. 04/18/2017 again continues to show signs of hypoxic brain injury. Responds to painful stimulus. Does not follow with his eyes. Does not respond to questions. Eyes deviate to the right. 04/19/2017 hypoxic brain injury. Patient is turning his head at times and moving all little but not in response to requests. Does not appear to be purposeful. 04/20/2017 patient has a severe cardiomyopathy. Has severe hypoxic brain injury post cardiac arrest. His family wants us to continue full support. Will need tracheostomy to wean off ventilator. He is not able to defend his airway. 04/21/2017 severe cardiomyopathy hypoxic brain injury. We had considered pulmonary embolus before. He is off anticoagulants now because of some pulmonary hemorrhage. Will obtain a CT PE protocol once he gets the trach done. 04/22/17 hypoxic brain injury. Cardiac arrest related to his cardiomyopathy. Current Visit: Yes (3) Chronic renal insufficiency Status: Chronic Assessment and plan: Creatinine has gone up from about 3.7-5 over the last few days. 04/13/17 creatinine up to 5.9 04/14/2017 creatinine is up to 6.9. Will start on some nasogastric feedings and IV fluids. 04/15/2017 creatinine up to 7.5. Defer to nephrology 04/16/2017 creatinine is 7.7. Perhaps it's levelling off. 04/17/2017 creatinine 8.1. Renal following 04/18/2017 creatinine 8.5 now. Bicarb level is 19. Potassium 4.8. He is making urine. 04/19/2017 patient started on dialysis yesterday. Chest x-ray looks a little bit less wet. 04/20/2017 defer to nephrology. He has been started on dialysis and his x-ray is looking a little better. 04/21/2017 continuing dialysis. 04/22/2017 getting dialysis. Current Visit: Yes (4) Congestive heart failure Status: Chronic Assessment and plan: Systolic acute on chronic congestive failure due to severe cardiomyopathy. His troponins are not elevated so it does not appear that he had a myocardial infarction as the cause of his arrest last night. 04/13/17 x-ray shows increased interstitial markings consistent with congestive heart failure, but not brigida pulmonary edema. 04/14/2017 does not appear to be in pulmonary edema. 04/15/2017 appears to be developing pulmonary edema. However ABGs are better. IV fluids started yesterday by cardiology. 04/16/2017 this lobe infiltrate. Difficult to tell him what this is heart failure, which may be the Klebsiella pneumonia. He is on Zosyn. 04/17/2017 chest x-ray compatible with mild congestive heart failure. Also getting antibiotics for Klebsiella pneumonia 04/18/2017 severe cardiomyopathy. 04/19/2017 seems to be a little better after dialysis. 04/20/2017 again chest x-ray is a little better. 04/21/2017 improved with dialysis. 04/22/2017 severe cardiomyopathy. Does not appear to be in failure at present. Current Visit: Yes Qualifiers: Congestive heart failure type: unspecified congestive heart failure type Congestive heart failure chronicity: acute on chronic Qualified Code(s): I50.9 - Heart failure, unspecified (5) Cellulitis and abscess of face Status: Acute Assessment and plan: He has actually completed full course of treatment for the cellulitis. We need to be careful about vancomycin with his renal failure. Defer to ENT and nephrology on antibiotics and dosing. Current Visit: No (6) Nephrotic syndrome Status: Chronic Assessment and plan: He has peripheral edema. Low serum protein. Increased risk for DVT/PTED. Current Visit: No (7) Pulmonary embolism Status: Acute Assessment and plan: Perfusion lung scan suggestive of pulmonary embolism. Unable to obtain PE protocol CT scan due to renal failure. Patient is on empiric heparin infusion. 04/14/2017 continuing heparin for suspected pulmonary thromboembolic disease 04/15/2017 patient is on heparin. 04/16/2017 his perfusion lung scan was suggestive of pulmonary embolism. We do not have a definitive diagnosis. He has had some pulmonary hemorrhage. I stop the heparin yesterday. Difficult situation. 04/17/2017 this is not a definitive diagnosis which was suspected at the time of his arrest. He had nonspecifically abnormal VQ lung scan. We did not do a CT PE protocol because of the renal failure. His heparin has been held because of bloody pulmonary secretions. Continue to monitor. 04/18/2017 will put on subcu heparin. 04/19/2017 never clear-cut about whether he had an embolus. He had some pulmonary hemorrhage when fully anticoagulated. We now have all subcu heparin prophylactic doses. Now that he is on dialysis we can do a CT PE protocol and will consider that tomorrow. 04/20/2017 this is not a definite diagnosis. We are using DVT prophylaxis at present. It will be worthwhile at some point to get CT PE protocol now that he is on dialysis. 04/21/2017 this is a questionable diagnosis. Plan CT PE protocol either later today or tomorrow. 04/22/2017 again need to do a CT PE protocol. Likely will do that later today. Current Visit: Yes
--- NOTE | 2017-04-22 07:19 | Operative Note ---
Date of procedure: 04/22/17 (Fiberoptic bronchoscopy with removal of endobronchial thrombi left lung) Pre-op diagnosis: Left lung opacification suspect left mainstem obstruction with plugs or thr Post-op diagnosis: same (Endobronchial thrombi left main bronchus) Procedure: After an appropriate timeout to be sure we were dealing with Juan Miguel Mantilla, the ventilator was turned to 100% oxygen. Fiberoptic bronchoscope was introduced via the side arm of the tracheostomy using a swivel adapter. Lower trachea was clear. Ellen was sharp. Right lung was clear. Left main bronchus had thrombus. It is essentially totally obstructed the left main bronchus and branches into the upper and lower lobes. Using the suction to remove the thrombi piecemeal, we were able to clear the left main bronchus, left upper lobe bronchus, left lower lobe bronchus. There did not appear to be active bleeding distally. There were no endobronchial lesions. Bronchial washings were obtained. The left lower and upper lobes were irrigated with saline. Bronchoscope was then removed and the patient remained on the ventilator in the ICU in stable condition. Anesthesia: conscious sedation Surgeon / Physician: Jem Bhakta Estimated blood loss: minimal Specimens: other (Bronchial washings for cultures) Condition: stable Disposition: ICU Results - Labs CBC & BMP: 04/22/17 02:25 04/22/17 02:25 Discharge Plan - Discharge Medications No Action Simvastatin [Zocor] 10 mg PO BEDTIME Folic Acid Tab 1 mg PO DAILY Carvedilol [Coreg] 12.5 mg PO BID tablet Chlorhexidine 0.12% Oral Rinse [Peridex] 15 ml SWISH/SPIT BID bottle Glucagon 1 mg IM PRN PRN #0 vial PRN Reason: Hypoglycemia w/o IV access HYDROcodone/ACETAMIN 5-325 [Libby 5-325] 1 tablet PO Q6H PRN #0 tablet PRN Reason: Pain Moderate (4-7) Insulin NPH [HumuLIN N] 16 unit SUBCUT BID unit Insulin Regular [HumuLIN R] See Protocol SUBCUT Q6HR unit Lactobacillus Rhamnosus GG [Culturelle] 1 capsule PO BID capsule Lansoprazole Odt Tab [Prevacid Solutab] 30 mg PER TUBE DAILY tablet Mupirocin 2% Oint [Bactroban 2% Oint] 1 applic TOP BID applic hydrALAZINE TAB [Apresoline Tab] 25 mg PO TID tablet Cyanocobalamin (Vitamin B-12) [Vitamin B-12] 1,000 mcg PO DAILY Aspirin EC Tab 81 mg PO DAILY tablet Albuterol/Ipratropium Neb [Duoneb] 3 ml RESP TX RT Q4H Bisacodyl Tab [Dulcolax Tab] 10 mg PO DAILY PRN #0 tablet PRN Reason: Constipation Dextrose 50% [D50] 25 gm IV PRN PRN #0 vial PRN Reason: Hypoglycemia with IV access Isosorbide Mononitrate [Imdur] 30 mg PO DAILY tablet Vancomycin/0.9 % Sod Chloride [Vanco 1.5 gm/500 ml-0.9% NaCl] 1.5 gm IV Q48H #5 plast..bag - Follow Up or Referral - Forms/Instructions
--- NOTE | 2017-04-22 10:30 | Hospitalist Progress Note ---
Hospitalist: Subjective Interval history: Pt opens eyes when off sedation per nurse but does not follow commands. No fever. Had bronch 04/22 where a left main bronchus thrombus was extracted. He also had thrombus removed from the left upper lobe and left lower lobe. CT scan of the chest was ordered Exam - Constitutional Vitals: Period Temp Pulse Resp BP Sys/Post Pulse Ox Last 24 Hr 96.9 F-97.4 F 64-84 13-28 96-139/47-85 98-100 Exam: GEN: Chronically ill appearing, sedated on the vent CV: RRR no M LUNGS: Mostly clear BS bilaterally, nonlabored ABD: Soft, hypoactive bowel sounds. No masses or HSM appreciated EXT: warm no c/c/e - Expanded ENT Exam Mouth exam: Present: moist Throat exam: Present: normal inspection (Obscured exam no gross lesions or lacerations) Results - Labs CBC & BMP: 04/22/17 02:25 04/22/17 02:25 - Impressions (1) Respiratory failure with Klebsiella PNA and left main stem thrombus - s/p thrombectomy LM stem bronchus, ELLEN and LLL via FOB 04/22 Status: Acute Assessment and plan: - Pulmonary managing vent - Trach 04/21 by ENT - Cont Zosyn, bronchodilators, vent support/ oxygen -CT of the chest on 04/22/2017 is negative for PE Current Visit: No Qualifiers: Chronicity: acute (2) Anoxic brain injury Status: Acute Current Visit: Yes - Neurology has seen and suspects poor prognosis for recovery. - Monitor neuro status (3) Suspected seizure disorder - s/p Ativan 3g IV x 1. Cont Keppra IV q8h. Neuro following - Seizure precautions (4) Diabetes mellitus Status: Chronic Assessment and plan: SSI Cont low dose lantus today Current Visit: No Qualifiers: Diabetes mellitus type: type 1 Diabetes mellitus complication status: with kidney complications Diabetes mellitus complication detail: with chronic kidney disease Chronic kidney disease stage: stage 4 (severe) Qualified Code (s): E10.22 - Type 1 diabetes mellitus with diabetic chronic kidney disease; N18.4 - Chronic kidney disease, stage 4 (severe) (5) Systolic CHF, acute on chronic- appears better compensated Status: Acute Assessment and plan: Cardiology assisting On lasix and metolazone. Check serial labs Current Visit: No (6) S/P Cardiac arrest Status: Acute Current Visit: Yes (7) Acute kidney injury superimposed on chronic kidney disease suspected stage 4 Status: Acute Assessment and plan: Started HD 04/18/17. Renal following Current Visit: Yes DVT prophylaxis - Heparin SQ q12h (hold for now with bleeding). SCDs. Labs in am D/W nurse and all questions answered. 36 minutes spent with this patient.
[2017-04-22] MEDS: FUROSEMIDE 40 MG/4 ML VIAL IV SCH (10:50)
[2017-04-22] MEDS: ASPIRIN EC 81 MG TABLET PO SCH (10:51)
[2017-04-22] MEDS: PANTOPRAZOLE 40 MG VIAL IV SCH (10:51)
[2017-04-22] MEDS: metOLazone 5 MG TABLET PO SCH (10:51)
[2017-04-22] MEDS: METOPROLOL TARTRATE 25 MG TABLET PO SCH ×2 (10:52→22:09)
[2017-04-22] MEDS: DESITIN 4OZ/NYSTATIN 15 GRAM MIXTURE PASTE TOP SCH ×2 (10:53→22:08)
[2017-04-22] MEDS: MINERAL OIL/PETROLATUM OPH OINT 3.5 GM TUBE BOTH EYES SCH ×3 (10:53→22:13)
[2017-04-22] MEDS: BACITRACIN OINT 0.9 GM PACK TOP SCH (10:54)
[2017-04-22] MEDS: ALBUTEROL 2.5 MG/3 ML NEB RESP TX PRN (13:43)
--- NOTE | 2017-04-22 13:50 | CT Report ---
CT chest PE study Indication: Suspected pulmonary embolism Comparison: None Technique: Multiple axial tomographic images of the chest were obtained after the administration of 80 cc Omnipaque 350 intravenous contrast. PE protocol followed. Coronal and sagittal maximum intensity projection images provided. Findings: No segmental or larger pulmonary embolism demonstrated. Mild cardiomegaly. Right-sided central venous catheter noted with tip near the atriocaval junction. Coronary artery and great vessel calcifications present. Moderate bilateral pleural effusions. Significant atelectasis/consolidation of the bilateral lower lobes, left greater than right. Scattered interlobular septal thickening tracheostomy tube tip terminates 2.1 cm above the domenic. Metallic density noted within the region of the proximal stomach measuring up to 2.2 cm. Diffuse body wall edema. Chronic left clavicular deformity. Scattered degenerative change of the thoracic spine with bridging osteophytes. Chronic posterior right rib 11 deformity. IMPRESSION: No segmental or larger pulmonary embolism. Mild cardiomegaly. Moderate bilateral pleural effusions. Significant atelectasis/consolidation of the bilateral lower lobes, left greater than right. Underlying infection not excluded. Scattered intralobular septal thickening is nonspecific but may reflect interstitial pulmonary edema. Metallic density noted within the region of the proximal stomach measuring up to 2.2 cm. This is of uncertain etiology and foreign body is not excluded. This could reflect residual oral contrast material however. Detailed findings as above. The CT exam was performed using one or more of the following dose reduction techniques: Automated exposure control, adjustment of the mA and/or kV according to patient size, or use of iterative reconstruction technique. PROCEDURE INTERPRETED AT [facility] DEPARTMENT OF RADIOLOGY Final Report Signed by: Dr Austin Galindo
--- NOTE | 2017-04-22 16:38 | Neurology Progress Note ---
Neurology - PN : Subjective Interval history: Patient seems to be doing okay. No new problems reported. No more seizures reported. Exam (Progress Note) - Constitutional Vitals: Period Temp Pulse Resp BP Sys/Post Pulse Ox Last 24 Hr 96.9 F-97.4 F 67-84 12-27 102-138/52-81 98-100 Exam: GENERAL: Patient is in no acute distress. NECK: Neck is supple. There is no JVD. No carotid bruits present. No thyroid masses. CVS: First and second heart sounds are normal. There is no S3 present. Regular rate and rhythm. RESPIRATORY: Lungs are clear to auscultation without any rales or rhonchi. ABDOMEN: Soft and non-tender. Bowel sounds are present. There is no hepatosplenomegaly. EXT: There is no palpable edema. Peripheral pulses are present. Skin: No rashes Central Nervous system: General: Awake Speech: None Comprehension: None Facial expressions: Normal Cranial Nerves: Pupils are small and nonreactive. Doll's head eye movements are negative. No facial asymmetry seen. Corneals are absent. Motor: Bulk and Tone is normal. Strength cannot be assessed. No withdrawal seen on painful stability Sensory: Cannot be assessed Reflexes: 1+ and symmetrical Cerebellar function: Cannot be assessed Toes: Equivocal Gait: Cannot be assessed Results - Labs CBC & BMP: 04/22/17 02:25 04/22/17 02:25 Assessment and Plan (1) Anoxic brain injury Status: Acute Assessment and plan: Anoxic brain injury secondary to cardiopulmonary arrest. Continue current supportive management as per family's request. Current Visit: Yes (2) Seizure disorder Status: Acute Assessment and plan: Continue Keppra 500 mg changed to p.o. Sign off please call as needed Current Visit: Yes
--- NOTE | 2017-04-22 20:04 | Nephrology Progress Note ---
Nephrology - PN: Subj Interval history: He was seen during dialysis. He remains unresponsive on the ventilator. Blood pressure is stable Exam (PN)-Nephrology - Vital Signs Vital signs: Period Temp Pulse Resp BP Sys/Post Pulse Ox Last 24 Hr 96.9 F-97.2 F 67-84 12-27 102-138/52-81 98-100 Exam: Gen.: Unresponsive, on ventilator ENT: Tracheostomy present Neck: Supple. No JVD or bruit. Cardiovascular: Regular rate and rhythm. No murmur rub or gallop Lungs: Clear Abdomen: Soft. Nontender. Positive bowel sounds. No organomegaly Extremities: 2+ edema - Lab 04/22/17 02:25 04/22/17 02:25 Most recent lab results ABG pH 7.455 (7.35-7.45) H 04/22/17 03:00 ABG pCO2 34.4 MM HG (35-48) L 04/22/17 03:00 ABG pO2 117.0 MM HG (80-95) H 04/22/17 03:00 ABG HCO3 24.9 MMOL/L (20-26) 04/22/17 03:00 ABG O2 Saturation 99.2 % (95-100) 04/22/17 03:00 Calcium 6.7 MG/DL (8.5-10.1) L 04/22/17 02:25 Phosphorus 3.4 MG/DL (2.5-4.9) 04/22/17 02:25 Magnesium 2.5 MG/DL (1.8-2.4) H 04/22/17 02:25 Assessment and Plan (1) Chronic kidney disease, stage IV (severe) Status: Chronic Assessment and plan: 61-year-old man admitted with: * CRF stage IV. Baseline creatinine mid threes * ARF on CRF. Stable during dialysis * Nephrotic syndrome * Diabetes mellitus * Cardiomyopathy * Cardiac arrest. * Ventilatory failure. Post tracheostomy * Anoxic brain injury. Current Visit: Yes (2) Acute respiratory failure Status: Acute Current Visit: Yes Qualifiers: Respiratory failure complication: hypoxia Qualified Code(s): J96.01 - Acute respiratory failure with hypoxia (3) Cardiac arrest Status: Acute Current Visit: Yes (4) Cellulitis and abscess of face Status: Acute Current Visit: No (5) Cardiomyopathy Status: Chronic Current Visit: No (6) Diabetes Status: Chronic Current Visit: No Qualifiers: Diabetes mellitus type: type 1 Diabetes mellitus complication status: with kidney complications Diabetes mellitus complication detail: with chronic kidney disease Chronic kidney disease stage: stage 4 (severe) Qualified Code (s): E10.22 - Type 1 diabetes mellitus with diabetic chronic kidney disease; N18.4 - Chronic kidney disease, stage 4 (severe) (7) Nephrotic syndrome Status: Chronic Current Visit: No
[2017-04-22] MEDS: levETIRAcetam 500 MG TABLET PO SCH (22:08)
[2017-04-22] MEDS: INSULIN GLARGINE 100 UNIT/ML SUBCUT SCH (22:12)
[2017-04-23] MEDS: ALBUTEROL/IPRATROPIUM 3 ML NEB RESP TX SCH ×4 (00:25→19:54)
[2017-04-23] MEDS: INSULIN REGULAR 100 UNIT/ML SUBCUT SCH ×5 (01:30→21:55)
[2017-04-23] MEDS: PIPERACILLIN/TAZOBACTAM 3,375 MG in SODIUM CHLORIDE 0.9% 100 ML IV SCH ×3 (01:31→19:50)
[2017-04-23 06:47] LABS: Basophils % 0.3 % (0.0-0.8); Eosinophils # 0.7 10*3/uL (0.0-0.87); Hematocrit 24.2 VOL% (42.0-52.0); Hemoglobin 7.8 GM/DL (14.0-18.0); Immature Granulocytes % 1.1 %; Immature Granulocytes Absolute 0.13 #; Lymphocytes % 8.2 % (21.2-54.2); Mean Corpuscular HGB Conc 32.2 GM/DL (32-36); Mean Corpuscular Hemoglobin 29 PG (27-34); Mean Corpuscular Volume 89.6 FL (87-102); Mean Platelet Volume 10.6 FL (9.6-12.0); Monocytes # 0.5 10*3/uL (0.11-0.8); Monocytes % 4.3 % (1.7-12.7); Neutrophils # 9.5 10*3/uL (1.4-7.4); Neutrophils % 80.1 % (38.7-73.9); Platelet Count 137 T/CUMM (130-400); Red Cell Distribution Width 18.8 % (9.3-17.3); White Blood Count 11.9 T/CUMM (4-12)
[2017-04-23 07:02] LABS: ABG PCO2 34.1 MM HG (35-48); ABG PH 7.495 (7.35-7.45); ABG PO2 132.9 MM HG (80-95)
[2017-04-23 07:03] LABS: ABG Base Excess 2.5 MMOL/L (-2.5-2.5); ABG HCO3 25.7 MMOL/L (20-26); ABG Oxygen Saturation 98.7 % (95-100); ABG TCO2 26.7 MMOL/L (23-27)
[2017-04-23 07:26] LABS: Hypochromasia 2+; Microcytosis 1+; Platelet Estimate Decreased
[2017-04-23 07:34] LABS: Calcium 7.1 MG/DL (8.5-10.1); Magnesium 2.4 MG/DL (1.8-2.4); Osmolality,Calculated 287.4 MOS/KG (273-304); Potassium 3.4 MMOL/L (3.5-5.1)
[2017-04-23 07:59] LABS: Albumin 1.7 G/DL (3.4-5.0); Calcium 7.4 MG/DL (8.5-10.1); Osmolality,Calculated 285.5 MOS/KG (273-304); Potassium 3.3 MMOL/L (3.5-5.1)
[2017-04-23 09:10] LABS: ABG Base Excess 2.5 MMOL/L (-2.5-2.5); ABG HCO3 25.7 MMOL/L (20-26); ABG Oxygen Saturation 98.7 % (95-100); ABG PCO2 34.1 MM HG (35-48); ABG PH 7.495 (7.35-7.45); ABG PO2 132.9 MM HG (80-95); ABG TCO2 26.7 MMOL/L (23-27)
[2017-04-23] MEDS: FUROSEMIDE 40 MG/4 ML VIAL IV SCH (09:15)
[2017-04-23] MEDS: BACITRACIN OINT 0.9 GM PACK TOP SCH (09:15)
[2017-04-23] MEDS: ASPIRIN EC 81 MG TABLET PO SCH (09:15)
[2017-04-23] MEDS: metOLazone 5 MG TABLET PO SCH (09:16)
[2017-04-23] MEDS: METOPROLOL TARTRATE 25 MG TABLET PO SCH ×2 (09:16→21:54)
[2017-04-23] MEDS: levETIRAcetam 500 MG TABLET PO SCH ×2 (09:16→21:54)
[2017-04-23] MEDS: DESITIN 4OZ/NYSTATIN 15 GRAM MIXTURE PASTE TOP SCH ×2 (09:17→21:56)
[2017-04-23] MEDS: MINERAL OIL/PETROLATUM OPH OINT 3.5 GM TUBE BOTH EYES SCH ×3 (09:17→21:53)
[2017-04-23] MEDS: PANTOPRAZOLE 40 MG VIAL IV SCH (09:17)
--- NOTE | 2017-04-23 12:14 | Pulmonology Progress Note ---
Pulmonary - PN: Subj Interval history: This 61-year-old man had a cardiac arrest and has finished the [facility] protocol. He remains on the ventilator. He required higher settings of PEEP and FiO2 over the weekend but this morning his PO2 is 264 on 90% oxygen and 15 of PEEP. We can reduce both the FiO2 and PEEP and recheck ABGs this morning. He remains unresponsive. Apparently does have a bit of a gag reflex. Neurology is to review his case and see what they think about prognosis. Family has made him a DO NOT RESUSCITATE. 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 04/14/2017 patient remains unresponsive. Neurologic evaluation has indicated severe hypoxic brain injury. ABGs are improved. Chest x-ray is stable. Will reduce FiO2 and PEEP. Hopefully can start weaning trial soon. His renal function is getting worse with creatinine up to 6.9. Prognosis is grave. Continuing full support at present. 04/15/2017 patient remains unresponsive. ABGs a little better. Will reduce PEEP to 5 cm. Start weaning trials. Renal function getting worse by the day. Chest x-ray looks a little bit wet. Getting saline to try to maintain urine output. Prognosis grave. 04/16/2017 bloody secretions have come from his endotracheal tube. He has a right lower lobe infiltrate. He has grown Klebsiella from his sputum. He is on Zosyn for that already. Remains unresponsive. Prognosis is poor. Creatinine is 7.7. Patient has end-stage cardiomyopathy and is status post cardiac arrest. He has severe hypoxic brain injury. 04/17/17 ABGs look reasonable. Patient tolerating longer CPAP trials. Patient not able to defend his airway. There is some spontaneous movement but no purposeful movement and he does not respond to anything except painful stimulation. 04/18/2017 patient continues to be unresponsive. His eyes deviate to the right. No change in x-rays. ABGs look good. Creatinine 8.5. Continuing with CPAP trials, however patient not able to defend airway at this point. 04/19/2017 patient remains unresponsive. Eyes deviate to the right. He has some twitching in his left arm. I wonder if there is seizure activity. 04/20/2017 patient is doing some CPAP trials although his mental status is not good. He will require tracheostomy. 04/21/2017 patient was having some twitching activity yesterday. He was seen by Dr. Ulloa. Started on seizure medications. Still no signs of neurologic recovery. Patient is to have tracheostomy today. Consider LTAC transfer after that. 04/22/2017 patient had tracheostomy yesterday. Dr. Grajeda called me afterwards, stated that he saw something distally in the lower trachea. Plans were made for bronchoscopy this morning. X-ray this morning shows almost opacification of the left lung. He may have something in his left main bronchus. We plan to do bronchoscopy shortly. His mental status is unchanged. Likely will need to go to LTAC. 04/23/2017 x-ray this morning looks much better. He had some thrombi in the left main bronchus that we removed yesterday with bronchoscopy. Still has patchy bilateral infiltrates. Patient remains unresponsive. He is getting dialysis on mechanical ventilation. Apparently his insurance company has declined transfer to LTAC. Labs pending this morning. Continuing support. Exam (Progress Note) - Constitutional Vitals: Period Temp Pulse Resp BP Sys/Post Pulse Ox Last 24 Hr 97.0 F-97.4 F 67-88 12-27 102-138/52-81 99-100 Exam: Patient is unresponsive. His eyes continue to deviate and not to follow. Vital signs normal. He does have some respiratory effort. He does not respond to painful stimulus. Pupils small irregular and sluggish. Face symmetrical. Orotracheal tube is in place. Neck is supple. Chest reveals scattered rhonchi bilaterally but equal breath sounds today. Heart normal rate rhythm no murmurs. Abdomen soft no masses. Extremities no clubbing cyanosis edema. Results - Labs CBC & BMP: 04/22/17 02:25 04/22/17 02:25 Lab Results: I have reviewed the past 24 hour labs - Diagnostic Findings Procedure: Chest x-ray: image reviewed by me (Left lung much better aerated. Tracheostomy tube in good position. Patchy bilateral infiltrates.), CT: image reviewed by me (No pulmonary emboli. Bilateral pleural effusions with compressive atelectasis in the bases likely pneumonia.) Assessment and Plan (1) Acute respiratory failure Status: Acute Assessment and plan: Patient is on the ventilator 100% oxygen. ABGs look good at present. Will reduce FiO2 to 60%. Certainly cannot start weaning until we see what his mental status is like and that will be after [facility] protocol. 04/13/17 ABGs improved. Will reduce FiO2 and PEEP a little. Prognosis is poor. 04/14/2017 ABGs improved. We can reduce both FiO2 and PEEP. Hopefully one would get his PEEP down to 6 we can start weaning. 04/15/2017 ABGs are better. Reducing PEEP. Start weaning. Mental status will guide us with weaning. 04/16/2017 patient starting to do CPAP. Mental status will guide us where to go later. If we are to continue long-term mechanical ventilatory support and would likely need a tracheostomy in a few days. 04/17/2017 tolerating prolonged CPAP trials. It appears that we will likely be doing a tracheostomy next week if no other changes. I do not think he can defend his airway at this point. 04/18/2017 patient continues to tolerate CPAP, however he is not alert and unable to defend his airway at this point. 04/19/2017 continuing with CPAP trials. ABGs improved. Reduce FiO2. Progressing with CPAP. Likely will need tracheostomy 04/20/2017 patient tolerating CPAP trials but would not be able to defend his airway. Will proceed with ENT consult for tracheostomy. 04/21/2017 ABGs are pending but so far we have been able to relate him fairly easily. He is for tracheostomy today. Reasonable to continue ventilatory support for a couple of weeks. His family is seeing some motion that they are interpreting as purposeful. I have not seen any purposeful motion. He does have some seizure activity. 04/22/2017 patient has done okay with CPAP's prior to the tracheostomy. He required pressors after that. He has opacification of the left long. Hopefully we can clear that up with bronchoscopy. Suspect mucous plugging or thrombi in the left mainstem. 04/23/2017 respiratory failure following cardiac arrest with hypoxic brain injury. Klebsiella pneumonia. Left lung looks better radiographically. Apparently had thrombi in the left main bronchus due either to bleeding from the tracheostomy or pulmonary hemorrhage. CT was negative for pulmonary embolus. He has bibasilar pneumonia and pleural effusions. Current Visit: Yes Qualifiers: Respiratory failure complication: hypoxia Qualified Code(s): J96.01 - Acute respiratory failure with hypoxia (2) Cardiac arrest Status: Acute Assessment and plan: Patient had a cardiac arrest last night. He has known severe cardiomyopathy. Did not have any known electrolyte imbalance. Does have chronic renal failure with a creatinine now around 5. He would be at increased risk for a pulmonary embolism. 04/13/17 it appears that he has had significant brain injury. Await neurologic evaluation. 04/14/2017 and apparent severe hypoxic brain injury. See neurology note 04/15/2017 apparent severe hypoxic brain injury. 04/16/2017 continues to exhibit signs of severe hypoxic brain injury. 04/17/2017 severe brain injury. 04/18/2017 again continues to show signs of hypoxic brain injury. Responds to painful stimulus. Does not follow with his eyes. Does not respond to questions. Eyes deviate to the right. 04/19/2017 hypoxic brain injury. Patient is turning his head at times and moving all little but not in response to requests. Does not appear to be purposeful. 04/20/2017 patient has a severe cardiomyopathy. Has severe hypoxic brain injury post cardiac arrest. His family wants us to continue full support. Will need tracheostomy to wean off ventilator. He is not able to defend his airway. 04/21/2017 severe cardiomyopathy hypoxic brain injury. We had considered pulmonary embolus before. He is off anticoagulants now because of some pulmonary hemorrhage. Will obtain a CT PE protocol once he gets the trach done. 04/22/17 hypoxic brain injury. Cardiac arrest related to his cardiomyopathy. 04/23/2017 status post cardiac arrest probably due to his cardiomyopathy with arrhythmias. Hypoxic brain injury persists. Current Visit: Yes (3) Chronic renal insufficiency Status: Chronic Assessment and plan: Creatinine has gone up from about 3.7-5 over the last few days. 04/13/17 creatinine up to 5.9 04/14/2017 creatinine is up to 6.9. Will start on some nasogastric feedings and IV fluids. 04/15/2017 creatinine up to 7.5. Defer to nephrology 04/16/2017 creatinine is 7.7. Perhaps it's levelling off. 04/17/2017 creatinine 8.1. Renal following 04/18/2017 creatinine 8.5 now. Bicarb level is 19. Potassium 4.8. He is making urine. 04/19/2017 patient started on dialysis yesterday. Chest x-ray looks a little bit less wet. 04/20/2017 defer to nephrology. He has been started on dialysis and his x-ray is looking a little better. 04/21/2017 continuing dialysis. 04/22/2017 getting dialysis. 04/23/2017 getting dialysis regularly. Current Visit: Yes (4) Congestive heart failure Status: Chronic Assessment and plan: Systolic acute on chronic congestive failure due to severe cardiomyopathy. His troponins are not elevated so it does not appear that he had a myocardial infarction as the cause of his arrest last night. 04/13/17 x-ray shows increased interstitial markings consistent with congestive heart failure, but not brigida pulmonary edema. 04/14/2017 does not appear to be in pulmonary edema. 04/15/2017 appears to be developing pulmonary edema. However ABGs are better. IV fluids started yesterday by cardiology. 04/16/2017 this lobe infiltrate. Difficult to tell him what this is heart failure, which may be the Klebsiella pneumonia. He is on Zosyn. 04/17/2017 chest x-ray compatible with mild congestive heart failure. Also getting antibiotics for Klebsiella pneumonia 04/18/2017 severe cardiomyopathy. 04/19/2017 seems to be a little better after dialysis. 04/20/2017 again chest x-ray is a little better. 04/21/2017 improved with dialysis. 04/22/2017 severe cardiomyopathy. Does not appear to be in failure at present. 04/23/2017 severe cardiomyopathy with bilateral pleural effusions. Current Visit: Yes Qualifiers: Congestive heart failure type: unspecified congestive heart failure type Congestive heart failure chronicity: acute on chronic Qualified Code(s): I50.9 - Heart failure, unspecified (5) Cellulitis and abscess of face Status: Acute Assessment and plan: He has actually completed full course of treatment for the cellulitis. We need to be careful about vancomycin with his renal failure. Defer to ENT and nephrology on antibiotics and dosing. Current Visit: No (6) Nephrotic syndrome Status: Chronic Assessment and plan: He has peripheral edema. Low serum protein. Increased risk for DVT/PTED. Current Visit: No (7) Pulmonary embolism Status: Ruled-out Assessment and plan: Perfusion lung scan suggestive of pulmonary embolism. Unable to obtain PE protocol CT scan due to renal failure. Patient is on empiric heparin infusion. 04/14/2017 continuing heparin for suspected pulmonary thromboembolic disease 04/15/2017 patient is on heparin. 04/16/2017 his perfusion lung scan was suggestive of pulmonary embolism. We do not have a definitive diagnosis. He has had some pulmonary hemorrhage. I stop the heparin yesterday. Difficult situation. 04/17/2017 this is not a definitive diagnosis which was suspected at the time of his arrest. He had nonspecifically abnormal VQ lung scan. We did not do a CT PE protocol because of the renal failure. His heparin has been held because of bloody pulmonary secretions. Continue to monitor. 04/18/2017 will put on subcu heparin. 04/19/2017 never clear-cut about whether he had an embolus. He had some pulmonary hemorrhage when fully anticoagulated. We now have all subcu heparin prophylactic doses. Now that he is on dialysis we can do a CT PE protocol and will consider that tomorrow. 04/20/2017 this is not a definite diagnosis. We are using DVT prophylaxis at present. It will be worthwhile at some point to get CT PE protocol now that he is on dialysis. 04/21/2017 this is a questionable diagnosis. Plan CT PE protocol either later today or tomorrow. 04/22/2017 again need to do a CT PE protocol. Likely will do that later today. 04/23/2017 pulmonary embolus has been ruled out. Current Visit: Yes
--- NOTE | 2017-04-23 12:16 | Hospitalist Progress Note ---
Hospitalist: Subjective Interval history: Patient continues to bleed around the trach site. No change in mental status. He did not tolerate the CPAP trial and began with agonal breathing so was placed back on the vent. He is having loose stools in the rectal tube. No fever. Exam - Constitutional Vitals: Period Temp Pulse Resp BP Sys/Post Pulse Ox Last 24 Hr 97.0 F-97.4 F 66-88 12-20 113-137/56-73 99-100 Exam: GEN: Chronically ill appearing, opens eyes but doesn't follow commands, sedated on the vent CV: RRR no M LUNGS: Mostly clear BS bilaterally, nonlabored ABD: Soft, hypoactive bowel sounds. No masses or HSM appreciated EXT: warm no c/c/e - Expanded ENT Exam Mouth exam: Present: moist Throat exam: Present: normal inspection (Obscured exam no gross lesions or lacerations) Results - Labs CBC & BMP: 04/23/17 04:00 04/23/17 07:00 - Impressions (1) Respiratory failure with Klebsiella PNA and left main stem thrombus - s/p thrombectomy LM stem bronchus, ELLEN and LLL via FOB 04/22 Status: Acute Assessment and plan: - Pulmonary managing vent - Trach 04/21 by ENT - Cont Zosyn, bronchodilators, vent support/ oxygen -CT of the chest on 04/22/2017 is negative for PE -Follow-up repeat sputum results from recent bronchoscopy Current Visit: No Qualifiers: Chronicity: acute (2) Anoxic brain injury Status: Acute Current Visit: Yes - Neurology has seen and suspects poor prognosis for recovery. - Monitor neuro status (3) Suspected seizure disorder - s/p Ativan 3g IV x 1. Cont Keppra IV q8h. Neuro signed off. Probably can change Keppra to per tube. If remains stable today we will transfer once stool studies resulted. - Seizure precautions (4) Diabetes mellitus Status: Chronic Assessment and plan: SSI Cont low dose lantus today Current Visit: No Qualifiers: Diabetes mellitus type: type 1 Diabetes mellitus complication status: with kidney complications Diabetes mellitus complication detail: with chronic kidney disease Chronic kidney disease stage: stage 4 (severe) Qualified Code (s): E10.22 - Type 1 diabetes mellitus with diabetic chronic kidney disease; N18.4 - Chronic kidney disease, stage 4 (severe) (5) Systolic CHF, acute on chronic- appears better compensated Status: Acute Assessment and plan: Cardiology assisting On lasix and metolazone. Check serial labs Current Visit: No (6) S/P Cardiac arrest Status: Acute Current Visit: Yes (7) Acute kidney injury superimposed on chronic kidney disease suspected stage 4 Status: Acute Assessment and plan: Started HD 04/18/17. Renal following Current Visit: Yes (8) Moderate protein calorie malnutrition - cont tubefeeds. nutrition following (9) Diarrhea - send stool studies. Cont fecal management system. (10) suspect candiduria -Start fluconazole DVT prophylaxis - Heparin SQ q12h (hold for now with bleeding). SCDs. serial labs. H and H so far stable D/W nurse and all questions answered. 36 minutes spent with this patient.
--- NOTE | 2017-04-23 12:23 | Nephrology Progress Note ---
Nephrology - PN: Subj Interval history: No change in neurologic status. Blood pressure is stable Exam (PN)-Nephrology - Vital Signs Vital signs: Period Temp Pulse Resp BP Sys/Post Pulse Ox Last 24 Hr 97.0 F-97.4 F 66-88 14-20 113-137/56-73 99-100 Exam: Gen.: Not responsive, on ventilator ENT: Pupils sluggishly reactive Neck: Supple. No JVD or bruit. Cardiovascular: Regular rate and rhythm. No murmur rub or gallop Lungs: Clear Abdomen: Soft. Nontender. Positive bowel sounds. No organomegaly Extremities: 1-2+ edema - Lab 04/23/17 04:00 04/23/17 07:00 Most recent lab results ABG pH 7.495 (7.35-7.45) H 04/23/17 06:42 ABG pCO2 34.1 MM HG (35-48) L 04/23/17 06:42 ABG pO2 132.9 MM HG (80-95) H 04/23/17 06:42 ABG HCO3 25.7 MMOL/L (20-26) 04/23/17 06:42 ABG O2 Saturation 98.7 % (95-100) 04/23/17 06:42 Calcium 7.1 MG/DL (8.5-10.1) L 04/23/17 07:00 Phosphorus 3.0 MG/DL (2.5-4.9) 04/23/17 04:00 Magnesium 2.4 MG/DL (1.8-2.4) 04/23/17 07:00 Assessment and Plan (1) Chronic kidney disease, stage IV (severe) Status: Chronic Assessment and plan: 61-year-old man admitted with: * CRF stage IV. Baseline creatinine mid threes * ARF on CRF. Dialyzed yesterday * Nephrotic syndrome * Diabetes mellitus * Cardiomyopathy * Cardiac arrest. * Ventilatory failure. Post tracheostomy * Anoxic brain injury. Current Visit: Yes (2) Acute respiratory failure Status: Acute Current Visit: Yes Qualifiers: Respiratory failure complication: hypoxia Qualified Code(s): J96.01 - Acute respiratory failure with hypoxia (3) Cardiac arrest Status: Acute Current Visit: Yes (4) Cellulitis and abscess of face Status: Acute Current Visit: No (5) Cardiomyopathy Status: Chronic Current Visit: No (6) Diabetes Status: Chronic Current Visit: No Qualifiers: Diabetes mellitus type: type 1 Diabetes mellitus complication status: with kidney complications Diabetes mellitus complication detail: with chronic kidney disease Chronic kidney disease stage: stage 4 (severe) Qualified Code (s): E10.22 - Type 1 diabetes mellitus with diabetic chronic kidney disease; N18.4 - Chronic kidney disease, stage 4 (severe) (7) Nephrotic syndrome Status: Chronic Current Visit: No
--- NOTE | 2017-04-23 14:03 | XRay Report ---
Referring Physician: Jem Bhakta MD Exam: XR chest 1V portable Date: April 23, 2017 at 3:04 AM Reason: On ventilator Comparison: Chest one view portable April 22, 2017 Findings: A tracheostomy catheter is again in place. The cardiac silhouette is again mildly enlarged. There are patchy opacities within both lungs. This likely represents pulmonary edema, atelectasis and possibly pneumonia. No pneumothorax is identified, but there is at least mild bilateral pleural fluid. The osseous structures appear stable. A nonspecific irregular density is seen within the left upper abdomen and may represent a foreign body within the stomach. Please see the recent CT chest PE study for further details. Impression: There is improved aeration of the left mid and upper lung zone since the previous chest x-ray. However, there are persistent opacities and pleural fluid bilaterally. PROCEDURE INTERPRETED AT [facility] DEPARTMENT OF RADIOLOGY Final Report Signed by: Dr. Ronak Nielson
[2017-04-23] MEDS: FLUCONAZOLE 40 MG/ML 35 ML/BOTTLE PO SCH (21:53)
[2017-04-23] MEDS: INSULIN GLARGINE 100 UNIT/ML SUBCUT SCH (21:55)
[2017-04-24] MEDS: ALBUTEROL/IPRATROPIUM 3 ML NEB RESP TX SCH ×4 (00:11→19:21)
[2017-04-24] MEDS: INSULIN REGULAR 100 UNIT/ML SUBCUT SCH ×6 (01:24→20:07)
[2017-04-24 04:17] LABS: ABG Base Excess 2.9 MMOL/L (-2.5-2.5); ABG HCO3 27.1 MMOL/L (20-26); ABG Oxygen Saturation 98.9 % (95-100); ABG PCO2 40.2 MM HG (35-48); ABG PH 7.447 (7.35-7.45); ABG PO2 157.8 MM HG (80-95); ABG TCO2 28.4 MMOL/L (23-27); Allen Test Positive; Pt O2 Delivery Device Ventilator
[2017-04-24 04:34] LABS: Basophils % 0.2 % (0.0-0.8); Eosinophils # 0.7 10*3/uL (0.0-0.87); Eosinophils % 6.4 % (0.00-10.9); Hematocrit 24.6 VOL% (42.0-52.0); Immature Granulocytes % 0.4 %; Immature Granulocytes Absolute 0.04 #; Mean Corpuscular HGB Conc 32.5 GM/DL (32-36); Mean Corpuscular Hemoglobin 29 PG (27-34); Mean Corpuscular Volume 89.8 FL (87-102); Mean Platelet Volume 10.9 FL (9.6-12.0); Monocytes # 0.5 10*3/uL (0.11-0.8); Monocytes % 4.4 % (1.7-12.7); Neutrophils # 9.1 10*3/uL (1.4-7.4); Neutrophils % 79.6 % (38.7-73.9); Platelet Count 141 T/CUMM (130-400); Red Blood Count 2.74 MC/CUMM (3.8-5.5); Red Cell Distribution Width 18.6 % (9.3-17.3); White Blood Count 11.4 T/CUMM (4-12)
[2017-04-24 05:04] LABS: Calcium 7.2 MG/DL (8.5-10.1); Magnesium 2.5 MG/DL (1.8-2.4); Osmolality,Calculated 284.7 MOS/KG (273-304); Potassium 3.4 MMOL/L (3.5-5.1)
--- NOTE | 2017-04-24 06:38 | Pulmonology Progress Note ---
Pulmonary - PN: Subj Interval history: This 61-year-old man had a cardiac arrest and has finished the [facility] protocol. He remains on the ventilator. He required higher settings of PEEP and FiO2 over the weekend but this morning his PO2 is 264 on 90% oxygen and 15 of PEEP. We can reduce both the FiO2 and PEEP and recheck ABGs this morning. He remains unresponsive. Apparently does have a bit of a gag reflex. Neurology is to review his case and see what they think about prognosis. Family has made him a DO NOT RESUSCITATE. 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 04/14/2017 patient remains unresponsive. Neurologic evaluation has indicated severe hypoxic brain injury. ABGs are improved. Chest x-ray is stable. Will reduce FiO2 and PEEP. Hopefully can start weaning trial soon. His renal function is getting worse with creatinine up to 6.9. Prognosis is grave. Continuing full support at present. 04/15/2017 patient remains unresponsive. ABGs a little better. Will reduce PEEP to 5 cm. Start weaning trials. Renal function getting worse by the day. Chest x-ray looks a little bit wet. Getting saline to try to maintain urine output. Prognosis grave. 04/16/2017 bloody secretions have come from his endotracheal tube. He has a right lower lobe infiltrate. He has grown Klebsiella from his sputum. He is on Zosyn for that already. Remains unresponsive. Prognosis is poor. Creatinine is 7.7. Patient has end-stage cardiomyopathy and is status post cardiac arrest. He has severe hypoxic brain injury. 04/17/17 ABGs look reasonable. Patient tolerating longer CPAP trials. Patient not able to defend his airway. There is some spontaneous movement but no purposeful movement and he does not respond to anything except painful stimulation. 04/18/2017 patient continues to be unresponsive. His eyes deviate to the right. No change in x-rays. ABGs look good. Creatinine 8.5. Continuing with CPAP trials, however patient not able to defend airway at this point. 04/19/2017 patient remains unresponsive. Eyes deviate to the right. He has some twitching in his left arm. I wonder if there is seizure activity. 04/20/2017 patient is doing some CPAP trials although his mental status is not good. He will require tracheostomy. 04/21/2017 patient was having some twitching activity yesterday. He was seen by Dr. Ulloa. Started on seizure medications. Still no signs of neurologic recovery. Patient is to have tracheostomy today. Consider LTAC transfer after that. 04/22/2017 patient had tracheostomy yesterday. Dr. Grajeda called me afterwards, stated that he saw something distally in the lower trachea. Plans were made for bronchoscopy this morning. X-ray this morning shows almost opacification of the left lung. He may have something in his left main bronchus. We plan to do bronchoscopy shortly. His mental status is unchanged. Likely will need to go to LTAC. 04/23/2017 x-ray this morning looks much better. He had some thrombi in the left main bronchus that we removed yesterday with bronchoscopy. Still has patchy bilateral infiltrates. Patient remains unresponsive. He is getting dialysis on mechanical ventilation. Apparently his insurance company has declined transfer to LTAC. Labs pending this morning. Continuing support. 04/24/2017 ABGs look good. Chest x-ray shows good aeration of both sides. He does have some basilar atelectasis. Weaning trials were held yesterday because of bleeding per tracheostomy. This seems better this morning. Patient gets a little heparin with his dialysis. He is on baby aspirin. I will hold the baby aspirin. Status post cardiac arrest with severe hypoxic brain injury. Also has Klebsiella pneumonia. Severe cardiomyopathy. Patient is a DO NOT RESUSCITATE but family wants to continue supportive care with mechanical ventilation and dialysis for now. Exam (Progress Note) - Constitutional Vitals: Period Temp Pulse Resp BP Sys/Post Pulse Ox Last 24 Hr 96.7 F-97.4 F 66-79 14-26 103-143/58-79 100-100 Exam: Patient is unresponsive. His eyes continue to deviate and not to follow. Vital signs normal. He does have some respiratory effort. He does not respond to painful stimulus. Pupils small irregular and sluggish. Face symmetrical. Orotracheal tube is in place. Neck is supple. Chest reveals scattered rhonchi bilaterally but equal breath sounds today. Heart normal rate rhythm no murmurs. Abdomen soft no masses. Extremities no clubbing cyanosis edema. Results - Labs CBC & BMP: 04/24/17 04:00 04/24/17 04:00 Lab Results: I have reviewed the past 24 hour labs - Diagnostic Findings Procedure: Chest x-ray: image reviewed by me (Both lungs are aerated. Bibasilar atelectatic infiltrates. Little change from yesterday's film.) Assessment and Plan (1) Acute respiratory failure Status: Acute Assessment and plan: Patient is on the ventilator 100% oxygen. ABGs look good at present. Will reduce FiO2 to 60%. Certainly cannot start weaning until we see what his mental status is like and that will be after [place] protocol. 04/13/17 ABGs improved. Will reduce FiO2 and PEEP a little. Prognosis is poor. 04/14/2017 ABGs improved. We can reduce both FiO2 and PEEP. Hopefully one would get his PEEP down to 6 we can start weaning. 04/15/2017 ABGs are better. Reducing PEEP. Start weaning. Mental status will guide us with weaning. 04/16/2017 patient starting to do CPAP. Mental status will guide us where to go later. If we are to continue long-term mechanical ventilatory support and would likely need a tracheostomy in a few days. 04/17/2017 tolerating prolonged CPAP trials. It appears that we will likely be doing a tracheostomy next week if no other changes. I do not think he can defend his airway at this point. 04/18/2017 patient continues to tolerate CPAP, however he is not alert and unable to defend his airway at this point. 04/19/2017 continuing with CPAP trials. ABGs improved. Reduce FiO2. Progressing with CPAP. Likely will need tracheostomy 04/20/2017 patient tolerating CPAP trials but would not be able to defend his airway. Will proceed with ENT consult for tracheostomy. 04/21/2017 ABGs are pending but so far we have been able to relate him fairly easily. He is for tracheostomy today. Reasonable to continue ventilatory support for a couple of weeks. His family is seeing some motion that they are interpreting as purposeful. I have not seen any purposeful motion. He does have some seizure activity. 04/22/2017 patient has done okay with CPAP's prior to the tracheostomy. He required pressors after that. He has opacification of the left long. Hopefully we can clear that up with bronchoscopy. Suspect mucous plugging or thrombi in the left mainstem. 04/23/2017 respiratory failure following cardiac arrest with hypoxic brain injury. Klebsiella pneumonia. Left lung looks better radiographically. Apparently had thrombi in the left main bronchus due either to bleeding from the tracheostomy or pulmonary hemorrhage. CT was negative for pulmonary embolus. He has bibasilar pneumonia and pleural effusions. 04/24/2017 ABGs look good. Resume weaning trials today. Current Visit: Yes Qualifiers: Respiratory failure complication: hypoxia Qualified Code(s): J96.01 - Acute respiratory failure with hypoxia (2) Cardiac arrest Status: Acute Assessment and plan: Patient had a cardiac arrest last night. He has known severe cardiomyopathy. Did not have any known electrolyte imbalance. Does have chronic renal failure with a creatinine now around 5. He would be at increased risk for a pulmonary embolism. 04/13/17 it appears that he has had significant brain injury. Await neurologic evaluation. 04/14/2017 and apparent severe hypoxic brain injury. See neurology note 04/15/2017 apparent severe hypoxic brain injury. 04/16/2017 continues to exhibit signs of severe hypoxic brain injury. 04/17/2017 severe brain injury. 04/18/2017 again continues to show signs of hypoxic brain injury. Responds to painful stimulus. Does not follow with his eyes. Does not respond to questions. Eyes deviate to the right. 04/19/2017 hypoxic brain injury. Patient is turning his head at times and moving all little but not in response to requests. Does not appear to be purposeful. 04/20/2017 patient has a severe cardiomyopathy. Has severe hypoxic brain injury post cardiac arrest. His family wants us to continue full support. Will need tracheostomy to wean off ventilator. He is not able to defend his airway. 04/21/2017 severe cardiomyopathy hypoxic brain injury. We had considered pulmonary embolus before. He is off anticoagulants now because of some pulmonary hemorrhage. Will obtain a CT PE protocol once he gets the trach done. 04/22/17 hypoxic brain injury. Cardiac arrest related to his cardiomyopathy. 04/23/2017 status post cardiac arrest probably due to his cardiomyopathy with arrhythmias. Hypoxic brain injury persists. 04/24/2017 has severe cardiomyopathy with subsequent arrest. Hypoxic brain injury. Prognosis is poor. Current Visit: Yes (3) Chronic renal insufficiency Status: Chronic Assessment and plan: Creatinine has gone up from about 3.7-5 over the last few days. 04/13/17 creatinine up to 5.9 04/14/2017 creatinine is up to 6.9. Will start on some nasogastric feedings and IV fluids. 04/15/2017 creatinine up to 7.5. Defer to nephrology 04/16/2017 creatinine is 7.7. Perhaps it's levelling off. 04/17/2017 creatinine 8.1. Renal following 04/18/2017 creatinine 8.5 now. Bicarb level is 19. Potassium 4.8. He is making urine. 04/19/2017 patient started on dialysis yesterday. Chest x-ray looks a little bit less wet. 04/20/2017 defer to nephrology. He has been started on dialysis and his x-ray is looking a little better. 04/21/2017 continuing dialysis. 04/22/2017 getting dialysis. 04/23/2017 getting dialysis regularly. 04/24/2017 acute renal failure being treated with dialysis. He is due for dialysis today. Current Visit: Yes (4) Congestive heart failure Status: Chronic Assessment and plan: Systolic acute on chronic congestive failure due to severe cardiomyopathy. His troponins are not elevated so it does not appear that he had a myocardial infarction as the cause of his arrest last night. 04/13/17 x-ray shows increased interstitial markings consistent with congestive heart failure, but not brigida pulmonary edema. 04/14/2017 does not appear to be in pulmonary edema. 04/15/2017 appears to be developing pulmonary edema. However ABGs are better. IV fluids started yesterday by cardiology. 04/16/2017 this lobe infiltrate. Difficult to tell him what this is heart failure, which may be the Klebsiella pneumonia. He is on Zosyn. 04/17/2017 chest x-ray compatible with mild congestive heart failure. Also getting antibiotics for Klebsiella pneumonia 04/18/2017 severe cardiomyopathy. 04/19/2017 seems to be a little better after dialysis. 04/20/2017 again chest x-ray is a little better. 04/21/2017 improved with dialysis. 04/22/2017 severe cardiomyopathy. Does not appear to be in failure at present. 04/23/2017 severe cardiomyopathy with bilateral pleural effusions. 04/24/2017 severe cardiomyopathy. Bilateral modest pleural effusions and basilar atelectasis. Current Visit: Yes Qualifiers: Congestive heart failure type: unspecified congestive heart failure type Congestive heart failure chronicity: acute on chronic Qualified Code(s): I50.9 - Heart failure, unspecified (5) Cellulitis and abscess of face Status: Acute Assessment and plan: He has actually completed full course of treatment for the cellulitis. We need to be careful about vancomycin with his renal failure. Defer to ENT and nephrology on antibiotics and dosing. Current Visit: No (6) Nephrotic syndrome Status: Chronic Assessment and plan: He has peripheral edema. Low serum protein. Increased risk for DVT/PTED. Current Visit: No (7) Pulmonary embolism Status: Ruled-out Assessment and plan: Perfusion lung scan suggestive of pulmonary embolism. Unable to obtain PE protocol CT scan due to renal failure. Patient is on empiric heparin infusion. 04/14/2017 continuing heparin for suspected pulmonary thromboembolic disease 04/15/2017 patient is on heparin. 04/16/2017 his perfusion lung scan was suggestive of pulmonary embolism. We do not have a definitive diagnosis. He has had some pulmonary hemorrhage. I stop the heparin yesterday. Difficult situation. 04/17/2017 this is not a definitive diagnosis which was suspected at the time of his arrest. He had nonspecifically abnormal VQ lung scan. We did not do a CT PE protocol because of the renal failure. His heparin has been held because of bloody pulmonary secretions. Continue to monitor. 04/18/2017 will put on subcu heparin. 04/19/2017 never clear-cut about whether he had an embolus. He had some pulmonary hemorrhage when fully anticoagulated. We now have all subcu heparin prophylactic doses. Now that he is on dialysis we can do a CT PE protocol and will consider that tomorrow. 04/20/2017 this is not a definite diagnosis. We are using DVT prophylaxis at present. It will be worthwhile at some point to get CT PE protocol now that he is on dialysis. 04/21/2017 this is a questionable diagnosis. Plan CT PE protocol either later today or tomorrow. 04/22/2017 again need to do a CT PE protocol. Likely will do that later today. 04/23/2017 pulmonary embolus has been ruled out. Current Visit: Yes
--- NOTE | 2017-04-24 06:54 | XRay Report ---
Referring Physician: Jem Bhakta MD Exam: XR chest 1V portable Date: April 24, 2017 at 2:57 AM Reason: On ventilator Comparison: Chest one view portable April 23, 2017 Findings: A right IJ catheter and tracheostomy catheter are again in place. The cardiac silhouette is again mildly enlarged. There are opacities within both lungs, mainly within the lower lung zones. This likely represents pulmonary edema, atelectasis and possibly pneumonia. No pneumothorax is identified, but there is mild bilateral pleural fluid. The osseous structures appear stable. Impression: There is slight increased opacification/pleural fluid at the right lower lung zone. The study is otherwise similar to before. PROCEDURE INTERPRETED AT [facility] DEPARTMENT OF RADIOLOGY Final Report Signed by: Dr. Ronak Nielson
[2017-04-24] MEDS: PIPERACILLIN/TAZOBACTAM 3,375 MG in SODIUM CHLORIDE 0.9% 100 ML IV SCH ×2 (08:07→20:07)
[2017-04-24] MEDS: BACITRACIN OINT 0.9 GM PACK TOP SCH (09:22)
[2017-04-24] MEDS: levETIRAcetam 500 MG TABLET PO SCH (09:22)
[2017-04-24] MEDS: metOLazone 5 MG TABLET PO SCH (09:23)
[2017-04-24] MEDS: FUROSEMIDE 40 MG/4 ML VIAL IV SCH (09:23)
[2017-04-24] MEDS: METOPROLOL TARTRATE 25 MG TABLET PO SCH ×2 (09:23→20:08)
[2017-04-24] MEDS: FLUCONAZOLE 40 MG/ML 35 ML/BOTTLE PO SCH (09:27)
[2017-04-24] MEDS: PANTOPRAZOLE 40 MG VIAL IV SCH (09:35)
[2017-04-24] MEDS: OXYMETAZOLINE 0.05% NASAL SPRAY 15 ML BOTTLE BOTH NARES PRN (09:38)
[2017-04-24] MEDS: MINERAL OIL/PETROLATUM OPH OINT 3.5 GM TUBE BOTH EYES SCH ×3 (09:39→23:08)
[2017-04-24] MEDS: DESITIN 4OZ/NYSTATIN 15 GRAM MIXTURE PASTE TOP SCH ×2 (09:39→23:08)
--- NOTE | 2017-04-24 14:58 | Hospitalist Progress Note ---
Hospitalist: Subjective Interval history: No significant overnight events. No changes in his mental status. Tolerating tube feeds. Still has bleeding from the trach Exam - Constitutional Vitals: Period Temp Pulse Resp BP Sys/Post Pulse Ox Last 24 Hr 96.7 F-97.9 F 69-79 14-20 117-143/62-79 100-100 Exam: GEN: Chronically ill appearing, opens eyes but doesn't follow commands, sedated on the vent CV: RRR no M LUNGS: Mostly clear BS bilaterally, seems more coarse on the left than the right ,nonlabored ABD: Soft, hypoactive bowel sounds. No masses or HSM appreciated EXT: warm no c/c/trace edema - Expanded ENT Exam Mouth exam: Present: moist Throat exam: Present: normal inspection (Obscured exam no gross lesions or lacerations) Results - Labs CBC & BMP: 04/24/17 04:00 04/24/17 04:00 - Impressions (1) Respiratory failure with Klebsiella PNA, Acinetobacter and Fina and left main stem thrombus - s/p thrombectomy LM stem bronchus, ELLEN and LLL via FOB 04/22 Status: Acute Assessment and plan: - Pulmonary managing vent - Trach 04/21 by ENT - Discussed with microbiology - Cont Zosyn and Fluconazole, Add inhaled MOLINA 300mg BID, bronchodilators, vent support/ oxygen -CT of the chest on 04/22/2017 is negative for PE -Follow-up repeat sputum results from recent bronchoscopy Current Visit: No Qualifiers: Chronicity: acute (2) Anoxic brain injury Status: Acute Current Visit: Yes - Neurology has seen and suspects poor prognosis for recovery. - Monitor neuro status (3) Suspected seizure disorder - s/p Ativan 3g IV x 1. on Keppra 750 mg po bid. Neuro signed off. - Seizure precautions (4) Diabetes mellitus Status: Chronic Assessment and plan: SSI Cont low dose lantus today Current Visit: No Qualifiers: Diabetes mellitus type: type 1 Diabetes mellitus complication status: with kidney complications Diabetes mellitus complication detail: with chronic kidney disease Chronic kidney disease stage: stage 4 (severe) Qualified Code (s): E10.22 - Type 1 diabetes mellitus with diabetic chronic kidney disease; N18.4 - Chronic kidney disease, stage 4 (severe) (5) Systolic CHF, acute on chronic- Status: Acute Assessment and plan: Edema seem a little worse today. Will Add Albumin x 3 doses given severe hypoalbuminemia. Cardiology assisting Cont on IV lasix and metolazone. Check serial labs Current Visit: No (6) S/P Cardiac arrest Status: Acute Current Visit: Yes (7) Acute kidney injury superimposed on chronic kidney disease suspected stage 4 Status: Acute Assessment and plan: Started HD 04/18/17. Renal following Current Visit: Yes (8) Moderate protein calorie malnutrition - cont tubefeeds. nutrition following (9) Diarrhea-noninfectious - send stool studies. Cont fecal management system. (10) acute candidal urinary tract infection/ cystitis -Cont fluconazole x 7 days DVT prophylaxis - Heparin SQ q12h (hold for now with bleeding). SCDs. serial labs. H and H so far stable D/W nurse and all questions answered. 40 minutes spent with this patient.
--- NOTE | 2017-04-24 15:57 | Nephrology Progress Note ---
Nephrology - PN: Subj Interval history: Seen during dialysis. Blood pressure stable. No improvement in neurologic status Exam (PN)-Nephrology - Vital Signs Vital signs: Period Temp Pulse Resp BP Sys/Post Pulse Ox Last 24 Hr 96.7 F-97.9 F 69-79 14-22 117-143/62-79 100-100 Exam: General: Unresponsive Cardiovascular: Regular rate and rhythm. No murmur rub or gallop Lungs: Clear Extremities: Trace edema - Lab 04/24/17 04:00 04/24/17 04:00 Most recent lab results ABG pH 7.447 (7.35-7.45) 04/24/17 04:00 ABG pCO2 40.2 MM HG (35-48) 04/24/17 04:00 ABG pO2 157.8 MM HG (80-95) H 04/24/17 04:00 ABG HCO3 27.1 MMOL/L (20-26) H 04/24/17 04:00 ABG O2 Saturation 98.9 % (95-100) 04/24/17 04:00 Calcium 7.2 MG/DL (8.5-10.1) L 04/24/17 04:00 Phosphorus 3.0 MG/DL (2.5-4.9) 04/23/17 04:00 Magnesium 2.5 MG/DL (1.8-2.4) H 04/24/17 04:00 Assessment and Plan (1) Chronic kidney disease, stage IV (severe) Status: Chronic Assessment and plan: 61-year-old man admitted with: * CRF stage IV. Baseline creatinine mid threes * ARF on CRF. Stable during dialysis * Nephrotic syndrome * Diabetes mellitus * Cardiomyopathy * Cardiac arrest. * Ventilatory failure. Post tracheostomy * Anoxic brain injury. Current Visit: Yes (2) Acute respiratory failure Status: Acute Current Visit: Yes Qualifiers: Respiratory failure complication: hypoxia Qualified Code(s): J96.01 - Acute respiratory failure with hypoxia (3) Cardiac arrest Status: Acute Current Visit: Yes (4) Cellulitis and abscess of face Status: Acute Current Visit: No (5) Cardiomyopathy Status: Chronic Current Visit: No (6) Diabetes Status: Chronic Current Visit: No Qualifiers: Diabetes mellitus type: type 1 Diabetes mellitus complication status: with kidney complications Diabetes mellitus complication detail: with chronic kidney disease Chronic kidney disease stage: stage 4 (severe) Qualified Code (s): E10.22 - Type 1 diabetes mellitus with diabetic chronic kidney disease; N18.4 - Chronic kidney disease, stage 4 (severe) (7) Nephrotic syndrome Status: Chronic Current Visit: No
[2017-04-24] MEDS: ALBUMIN 5% 25 GM in PREMIX 1 EACH IV SCH (16:00)
[2017-04-24] MEDS ORDERED: EPINEPHrine 1 MG/ML VIAL ONE (16:19)
[2017-04-24] MEDS ORDERED: PHYTONADIONE 10 MG/1 ML AMP SUBCUT ONE (16:24)
[2017-04-24] MEDS ORDERED: SODIUM CHLORIDE 0.9% 250 ML IV PRN ×2 (16:26→17:14)
[2017-04-24] MEDS ORDERED: PROTAMINE SULFATE 50 MG/5 ML VIAL IV ONE ×3 (16:35→16:57)
[2017-04-24] MEDS ORDERED: hydrALAZINE 20 MG/1 ML VIAL IV PRN (16:42)
--- NOTE | 2017-04-24 16:52 | Progress Note ---
Assessment and Plan - Time spent with patient Time spent with patient: Greater than 30 minutes (1) Coagulopathy Status: Acute Assessment and plan: I will order 3 units of fresh frozen plasma given protamine I have given vitamin K I contacted the hospitalist to notify her of my attempt to try to reverse the heparin as there appears to be no clotting of his blood at this moment. There is no more packing intervention that I can do will continue to try to treat this by reversing the heparin. Current Visit: Yes (2) Tracheostomy hemorrhage Status: Acute Current Visit: Yes (3) Ventilator dependence Status: Acute Assessment and plan: I recommend tracheostomy placement risks and benefits were discussed and the family desires to proceed with the procedure which will be scheduled for tomorrow in the OR. Current Visit: Yes (4) Respiratory failure Status: Resolved Current Visit: No Qualifiers: Chronicity: acute (5) Bilateral pneumonia Status: Resolved Current Visit: No (6) Acute hypoxemic respiratory failure Status: Acute Current Visit: No (7) Anoxic brain injury Status: Acute Current Visit: Yes Family Medicine PN Sub Interval history: I was called to the bedside for paratracheal hemorrhage. Nursing had provided direct pressure with no clotting or improvement blood pressure had been controlled with intermittent elevations. He had received dialysis today with his presumed amount of heparin during his dialysis. Exam (Progress Note) - Constitutional Vitals: Period Temp Pulse Resp BP Sys/Post Pulse Ox Last 24 Hr 96.7 F-97.9 F 69-79 14-22 117-143/62-76 100-100 General appearance: normal weight, other (Sedated on the ventilator) - Eye Eye exam: Present: other (No gross movement or evidence of a corneal reflex consistent with diffuse neurologic injury that is been previously stated) - ENT ENT exam: Present: other (Hemorrhage per oropharynx and tracheostomy paratracheally a tracheoscopy was performed at bedside and was verified placement in the trachea with no pulmonary hemorrhage.) - Neck Neck exam: Present: normal inspection (Midline trach with paratracheal hemorrhage) - Respiratory Respiratory exam: Present: other (Sedated on the ventilator currently) - Cardiovascular Cardiovascular exam: Present: regular rate and rhythm - Neurological Exam Neurological exam: Present: other (Unable to fully examine because he is sedated on the ventilator) - Psychiatric Psychiatric exam: Present: other (Unable to fully examine because he is sedated on the ventilator) - Skin Skin exam: Present: pallor, petechiae Results - Labs CBC & BMP: 04/24/17 16:25 04/24/17 04:00 Lab Results: I have reviewed the past 24 hour labs
[2017-04-24 17:00] LABS: D-Dimer 2.7 MG/L FEU; INR 1.1; PT Patient Result 11.2 SECS
[2017-04-24 17:09] LABS: Partial Thromboplastin Time 54.4 SECS (0-40)
[2017-04-24] MEDS ORDERED: FUROSEMIDE 40 MG/4 ML VIAL IV ONE (17:24)
[2017-04-24 17:47] LABS: Hematocrit 24.6 VOL% (42.0-52.0)
[2017-04-24] MEDS ORDERED: ESTROGENS(CONJ) 25 MG VIAL IV ONE (18:30)
[2017-04-24] MEDS ORDERED: DESMOPRESSIN INJ 20 MCG in SODIUM CHLORIDE 0.9% 50 ML IV ONE (18:30)
[2017-04-24] MEDS: TOBRAMYCIN 80 MG/2 ML VIAL RESP TX SCH (19:21)
[2017-04-24] MEDS: PROPOFOL 1,000 MG/100 ML BOTTLE IV SCH (19:53)
[2017-04-24] MEDS: INSULIN GLARGINE 100 UNIT/ML SUBCUT SCH (20:07)
[2017-04-24] MEDS: CEFEPIME IV SCH (21:43)
[2017-04-24] MEDS: SODIUM CHLORIDE 0.9% IV SCH (21:43)
[2017-04-24 21:53] LABS: Hematocrit 18.1 VOL% (42.0-52.0)
[2017-04-24 21:56] LABS: Hemoglobin 5.9 GM/DL (14.0-18.0)
[2017-04-24] MEDS: levETIRAcetam LIQUID 100 MG/ML 30 ML/BOTTLE PO SCH (23:11)
[2017-04-25] MEDS: ALBUTEROL/IPRATROPIUM 3 ML NEB RESP TX SCH ×4 (00:38→19:03)
[2017-04-25] MEDS: ALBUMIN 5% 25 GM in PREMIX 1 EACH IV SCH ×2 (00:43→07:54)
[2017-04-25] MEDS: PROPOFOL 1,000 MG/100 ML BOTTLE IV SCH ×3 (00:43→23:08)
[2017-04-25] MEDS: INSULIN REGULAR 100 UNIT/ML SUBCUT SCH ×6 (00:43→21:30)
[2017-04-25 05:28] LABS: Basophils % 0.2 % (0.0-0.8); Eosinophils # 0.6 10*3/uL (0.0-0.87); Eosinophils % 6.5 % (0.00-10.9); Hematocrit 23.7 VOL% (42.0-52.0); Hemoglobin 7.9 GM/DL (14.0-18.0); Immature Granulocytes % 0.7 %; Immature Granulocytes Absolute 0.06 #; Lymphocytes # 0.6 10*3/uL (1.4-4.0); Lymphocytes % 6.7 % (21.2-54.2); Mean Corpuscular HGB Conc 33.3 GM/DL (32-36); Mean Corpuscular Hemoglobin 30 PG (27-34); Mean Corpuscular Volume 88.8 FL (87-102); Mean Platelet Volume 10.6 FL (9.6-12.0); Monocytes # 0.5 10*3/uL (0.11-0.8); Monocytes % 5.9 % (1.7-12.7); Neutrophils # 7.2 10*3/uL (1.4-7.4); Platelet Count 136 T/CUMM (130-400); Red Blood Count 2.67 MC/CUMM (3.8-5.5); Red Cell Distribution Width 17.1 % (9.3-17.3)
[2017-04-25] MEDS ORDERED: ESTROGENS(CONJ) 25 MG VIAL IV ONE (06:00)
[2017-04-25 06:20] LABS: Calcium 7.7 MG/DL (8.5-10.1); Magnesium 2.4 MG/DL (1.8-2.4); Osmolality,Calculated 282.5 MOS/KG (273-304); Potassium 3.6 MMOL/L (3.5-5.1)
[2017-04-25] MEDS: TOBRAMYCIN 80 MG/2 ML VIAL RESP TX SCH ×2 (07:14→19:04)
[2017-04-25] MEDS: PIPERACILLIN/TAZOBACTAM 3,375 MG in SODIUM CHLORIDE 0.9% 100 ML IV SCH ×2 (08:03→21:29)
[2017-04-25] MEDS: DESITIN 4OZ/NYSTATIN 15 GRAM MIXTURE PASTE TOP SCH ×2 (08:09→21:31)
[2017-04-25] MEDS: MINERAL OIL/PETROLATUM OPH OINT 3.5 GM TUBE BOTH EYES SCH ×3 (08:09→21:31)
--- NOTE | 2017-04-25 08:33 | Hospitalist Progress Note ---
Hospitalist: Subjective Interval history: Pt had significant bleeding from trach overnight. Left now now full of ?blood. No fever. Bleeding is now stable. Exam - Constitutional Vitals: Period Temp Pulse Resp BP Sys/Post Pulse Ox Last 24 Hr 96 F-98.6 F 63-87 12-65 89-132/48-84 93-100 Exam: GEN: Chronically ill appearing, opens eyes but doesn't follow commands, sedated on the vent NECK: dressing in place with serosangionous fluid CV: RRR no M LUNGS: clear on right, diminished on the left,nonlabored ABD: Soft, hypoactive bowel sounds. No masses or HSM appreciated EXT: warm no c/c/+ trace edema - Expanded ENT Exam Mouth exam: Present: moist Throat exam: Present: normal inspection (Obscured exam no gross lesions or lacerations) Results - Labs CBC & BMP: 04/25/17 05:15 04/25/17 05:15 - Impressions (1) Acute Respiratory failure due to with Klebsiella PNA, Acinetobacter and Fina and left main stem thrombus - s/p thrombectomy LM stem bronchus, ELLEN and LLL via FOB 04/22 Status: Acute Assessment and plan: - Pulmonary managing vent - Trach 04/21 by ENT - Discussed with microbiology - Cont Zosyn and Fluconazole. Cont inhaled MOLINA 300mg BID, bronchodilators, vent support/ oxygen - CT of the chest on 04/22/2017 is negative for PE - CXR 04/25 shows complete white out of left lung ? fluid. ? thoracentesis - Follow-up repeat sputum results from recent bronchoscopy Current Visit: No Qualifiers: Chronicity: acute (2) Coagulapathy with acute blood loss anemia - s/p FFP, cryoprecipitate, vitamin K and protamine and PRBCs. No evidence of DIC. Holding all blood thinners, NSAIDS, ASA. HIT pending (though pts are normal ) - Serial labs (3) Left lung density - ? fluid vs. blood vs. other - No thoracentesis at this time. - Pulm following. D/W pulm. No bronchoscopy at this time. - Increase lasix x 1 day and consider resume qday in am - Serial cxr (4) Anoxic brain injury Status: Acute Current Visit: Yes - Neurology has seen and suspects poor prognosis for recovery. - Monitor neuro status (5) Suspected seizure disorder - s/p Ativan 3g IV x 1. on Keppra 750 mg po bid. Neuro signed off. - Seizure precautions (6) Diabetes mellitus Status: Chronic Assessment and plan: SSI Cont low dose lantus today Current Visit: No Qualifiers: Diabetes mellitus type: type 1 Diabetes mellitus complication status: with kidney complications Diabetes mellitus complication detail: with chronic kidney disease Chronic kidney disease stage: stage 4 (severe) Qualified Code (s): E10.22 - Type 1 diabetes mellitus with diabetic chronic kidney disease; N18.4 - Chronic kidney disease, stage 4 (severe) (7) Systolic CHF, acute on chronic- Status: Acute Assessment and plan: s/p Albumin x 3 doses given severe hypoalbuminemia. Cardiology assisting Cont on IV lasix and metolazone. Check serial labs Current Visit: No (8) S/P Cardiac arrest Status: Acute Current Visit: Yes (9) Acute kidney injury superimposed on chronic kidney disease suspected stage 4 Status: Acute Assessment and plan: Started HD 04/18/17. Renal following Current Visit: Yes (10) Moderate protein calorie malnutrition - cont tubefeeds. nutrition following (11) Diarrhea-noninfectious - stool studies reviewed. Cont fecal management system. (12) acute candidal urinary tract infection/ cystitis -Cont fluconazole x 7 days total DVT prophylaxis - SCDs. Has been holding heparin for days given bleeding serial labs. H and H so far stable D/W nurse, sister and niece and all questions answered. I will be away several days. One of my associates will follow in my absence. - Diagnostic Findings Procedure: Chest x-ray: image reviewed by me (04/25 prelim read by me: complete whiteout of left lung.)
--- NOTE | 2017-04-25 08:42 | Pulmonology Progress Note ---
Pulmonary - PN: Subj Interval history: Patient s/p arrest and hypoxic massimo injury with no significant recovery. Yesterday had significant amount of bleeding from trach site requiring multiple blood products. This morning CXR shows white out of left lung, no signficant change on vent Exam (Progress Note) - Constitutional Vitals: Period Temp Pulse Resp BP Sys/Post Pulse Ox Last 24 Hr 96 F-98.6 F 63-87 12-65 89-132/48-84 93-100 General appearance: no acute distress - Head Head exam: Present: normal inspection - ENT ENT exam: Present: normal exam - Respiratory Respiratory exam: Present: decreased breath sounds (on the left) - Cardiovascular Cardiovascular exam: Present: regular rate and rhythm - Neurological Exam Neurological exam: Present: altered - Skin Skin exam: Present: erythema (over left lower abdomen and groin) Results - Labs CBC & BMP: 04/25/17 05:15 04/25/17 05:15 Lab Results: I have reviewed the past 24 hour labs - Diagnostic Findings Procedure: Chest x-ray: image reviewed by me, report reviewed by me (white out of left lung) Assessment and Plan (1) Acute respiratory failure Status: Acute Assessment and plan: Patient stable on vent, continue current care Current Visit: Yes Qualifiers: Respiratory failure complication: hypoxia Qualified Code(s): J96.01 - Acute respiratory failure with hypoxia (2) Anoxic brain injury Status: Acute Assessment and plan: no change, Current Visit: Yes (3) Tracheostomy hemorrhage Status: Acute Assessment and plan: appears stable. lung whiteout likely from bleeding yesterday. Discussed with Dr Grajeda, ENT. He will eval the patient later and see if he feels the bleeding is under better control. Also willl need to talk to the family, as patient will need a bronch to clean out the lung. However the bronch itself may cause further bleeding. Also if patient remains coagulopathic this may continue and need further intervention in the future Current Visit: Yes
[2017-04-25] MEDS: metOLazone 5 MG TABLET PO SCH (08:59)
[2017-04-25] MEDS: METOPROLOL TARTRATE 25 MG TABLET PO SCH ×2 (09:00→21:30)
[2017-04-25] MEDS: PANTOPRAZOLE 40 MG TABLET PO SCH (09:00)
[2017-04-25] MEDS: levETIRAcetam LIQUID 100 MG/ML 30 ML/BOTTLE PO SCH ×2 (09:00→21:30)
[2017-04-25] MEDS: FLUCONAZOLE 40 MG/ML 35 ML/BOTTLE PO SCH (09:01)
[2017-04-25] MEDS: BACITRACIN OINT 0.9 GM PACK TOP SCH (09:07)
--- NOTE | 2017-04-25 09:54 | XRay Report ---
History: Patient on ventilator Date: 04/25/2017 Study: Chest x-ray AP portable Comparison exam: Chest x-ray 04/24/2017 The tracheostomy tube and right IJ venous catheter remain in stable position. There is now near complete opacification of the left hemithorax which is thought to largely be related to left lung atelectasis. There is shift of the mediastinum to the left. There is some continued patchy and hazy atelectasis/infiltrate in the right lung base. There is probable mild right pleural effusion as before. Osseous structures are similar. Impression: There is now near complete opacification of left hemithorax, felt to be related to interval development or worsening of left lung atelectasis. Otherwise unchanged PROCEDURE INTERPRETED AT [facility] DEPARTMENT OF RADIOLOGY Final Report Signed by: Dr. Marlee Newman
--- NOTE | 2017-04-25 12:02 | Event Note ---
Patient with left lung white out on CXR this morning, acute from yesterday. Bedside US did not reveal any effusion, so felt to be blood from yesterdays tracheal hemorrhage. Elected to perform bronchoscopy at bedside for clean out. Patient alreayd sedated on propofol. Tscope inserted through tracheostomy. Large blood clots were seen immeadiately. Cleaned out clot from left main stem and upper and lower lobe take offs. SpO2 improved to 100% immeadiately. Patient remained HD stable. Repeat CXR tomorrow morning. If no improvement, will repeat procedure as still likely with some casts. However, may need to wait until Thursday and bronch with nondisposable Tscope in order to use instruments to help with removal. Will cont to monitor
--- NOTE | 2017-04-25 12:32 | Nephrology Progress Note ---
Nephrology - PN: Subj Interval history: In follow-up of his acute on chronic renal impairment he dialyzed yesterday. He is unresponsive on ventilator. He did have a therapeutic bronchoscopy to remove retained secretions and blood from his bronchi. Overall he stable but the anoxic brain injury is severe. Exam (PN)-Nephrology - Vital Signs Vital signs: Period Temp Pulse Resp BP Sys/Post Pulse Ox Last 24 Hr 96 F-100.2 F 63-94 12-65 89-132/48-84 93-100 - Lab 04/25/17 05:15 04/25/17 05:15 Most recent lab results ABG pH 7.447 (7.35-7.45) 04/24/17 04:00 ABG pCO2 40.2 MM HG (35-48) 04/24/17 04:00 ABG pO2 157.8 MM HG (80-95) H 04/24/17 04:00 ABG HCO3 27.1 MMOL/L (20-26) H 04/24/17 04:00 ABG O2 Saturation 98.9 % (95-100) 04/24/17 04:00 Calcium 7.7 MG/DL (8.5-10.1) L 04/25/17 05:15 Phosphorus 3.0 MG/DL (2.5-4.9) 04/23/17 04:00 Magnesium 2.4 MG/DL (1.8-2.4) 04/25/17 05:15
[2017-04-25] MEDS: PHENYLEPHRINE DRIP 40 MG/250 ML PREMIX IV SCH (16:26)
[2017-04-25] MEDS: FUROSEMIDE 40 MG/4 ML VIAL IV SCH (16:34)
[2017-04-25] MEDS: INSULIN GLARGINE 100 UNIT/ML SUBCUT SCH (21:30)
[2017-04-26] MEDS: INSULIN REGULAR 100 UNIT/ML SUBCUT SCH ×6 (00:20→20:16)
[2017-04-26] MEDS: ALBUTEROL/IPRATROPIUM 3 ML NEB RESP TX SCH ×4 (00:43→19:22)
[2017-04-26] MEDS: TOBRAMYCIN 80 MG/2 ML VIAL RESP TX SCH ×2 (07:32→19:22)
--- NOTE | 2017-04-26 07:41 | Pulmonology Progress Note ---
Pulmonary - PN: Subj Interval history: Patient still unresponsive this morning. Underwent cleanout bronch yesterday. Sats improved. CXR improved Exam (Progress Note) - Constitutional Vitals: Period Temp Pulse Resp BP Sys/Post Pulse Ox Last 24 Hr 97.5 F-100.9 F 72-94 14-36 109-147/57-86 95-100 General appearance: no acute distress - ENT ENT exam: Present: other (ET tube in place, bloody secretions) - Respiratory Respiratory exam: Absent: accessory muscle use, wheezes - Cardiovascular Cardiovascular exam: Present: regular rate and rhythm Results - Labs CBC & BMP: 04/25/17 05:15 04/25/17 05:15 Lab Results: I have reviewed the past 24 hour labs - Diagnostic Findings Procedure: Chest x-ray: image reviewed by me (left lung with significantly improved aeration) Assessment and Plan (1) Acute respiratory failure Status: Acute Assessment and plan: Patient stable on vent, continue current care. Needs more suctioning to prevent plugging Current Visit: Yes Qualifiers: Respiratory failure complication: hypoxia Qualified Code(s): J96.01 - Acute respiratory failure with hypoxia (2) Anoxic brain injury Status: Acute Assessment and plan: no change, Current Visit: Yes (3) Tracheostomy hemorrhage Status: Acute Assessment and plan: appears stable. Still having bloody secretions with suctioning, however, as demonstrated yesterday I feel that if he does not get regular suctioning he is at risk for complete plugging of a mainstem and raleigh out his lung again Current Visit: Yes
[2017-04-26] MEDS: FUROSEMIDE 40 MG/4 ML VIAL IV SCH ×2 (08:12→16:05)
[2017-04-26] MEDS: metOLazone 5 MG TABLET PO SCH (08:14)
[2017-04-26] MEDS: PANTOPRAZOLE 40 MG TABLET PO SCH (08:14)
[2017-04-26] MEDS: METOPROLOL TARTRATE 25 MG TABLET PO SCH ×2 (08:15→20:16)
--- NOTE | 2017-04-26 08:20 | XRay Report ---
History: Intubated. Patient had bronchoscopy yesterday Date: 04/26/2017 Study: Chest x-ray AP portable Comparison exam: 04/25/2017 The tracheostomy tube and right IJ central venous catheter are stable in position. There is no evidence of pneumothorax. There is considerably improved aeration in the left mid to upper lung following interval bronchoscopy. There is some mild residual parenchymal consolidation in the left lower lobe with some strandy and hazy atelectasis/infiltrate in the left midlung and right lung base. The cardiac silhouette is upper normal in size. The mediastinal contours are unremarkable. Osseous structures are unchanged. Impression: Considerably improved aeration of the left lung following bronchoscopy. There is some residual atelectasis/infiltrate in the left mid to lower lung. There is also improved aeration in the right lung base in the interval. No interval worsening PROCEDURE INTERPRETED AT [facility] DEPARTMENT OF RADIOLOGY Final Report Signed by: Dr. Marlee Newman
[2017-04-26] MEDS: PIPERACILLIN/TAZOBACTAM 3,375 MG in SODIUM CHLORIDE 0.9% 100 ML IV SCH ×2 (08:21→20:16)
[2017-04-26] MEDS: PROPOFOL 1,000 MG/100 ML BOTTLE IV SCH ×2 (08:22→18:23)
--- NOTE | 2017-04-26 08:25 | Hospitalist Progress Note ---
Assessment and Plan (1) Pneumonia due to Klebsiella pneumoniae Status: Acute Current Visit: Yes (2) Acute respiratory failure Status: Acute Current Visit: Yes Qualifiers: Respiratory failure complication: hypoxia Qualified Code(s): J96.01 - Acute respiratory failure with hypoxia (3) Anoxic brain injury Status: Acute Current Visit: Yes (4) Cardiopulmonary arrest Status: Acute Current Visit: Yes (5) Coagulopathy Status: Acute Current Visit: Yes (6) Anemia due to acute blood loss Status: Acute Current Visit: Yes (7) Chronic kidney disease, stage IV (severe) Status: Chronic Assessment and plan: -Pulmonology consult, will continue to follow the recommendation, patient status post bronchoscopy yesterday -We will continue current IV antibiotics with Zosyn, tobramycin, fluconazole -Continue current pressure support with levo fed -Patient continues to be severely anemic with coagulopathy, all blood thinners currently on hold -Cardiology consulted for assistance with management of acute on chronic congestive heart failure -Due to the multiple comorbid medical conditions and the severity of illness, the patient has extremely prognosis Current Visit: Yes Hospitalist: Subjective Interval history: Patient s/p bronch yesterday. He continues to have significant bleeding from the trach. He remains sedated. Exam - Constitutional Vitals: Period Temp Pulse Resp BP Sys/Post Pulse Ox Last 24 Hr 97.5 F-100.9 F 71-94 14-36 109-147/60-86 95-100 General appearance: other (Acutely ill-appearing male sedated and intubated via trach) - Expanded ENT Exam Mouth exam: Present: moist Throat exam: Present: normal inspection - Respiratory Respiratory exam: Present: other (Coarse breath sounds bilaterally) - Cardiovascular Cardiovascular exam: Present: regular rate and rhythm - GI/Abdominal GI/Abdominal exam: Present: hypoactive bowel sounds, soft - Extremities Exam Extremities exam: Absent: edema - Neurological Exam Neurological exam: Present: other (Sedated) - Skin Skin exam: Present: normal color Results - Labs CBC & BMP: 04/25/17 05:15 04/25/17 05:15 Lab Results: I have reviewed the past 24 hour labs
[2017-04-26] MEDS: FLUCONAZOLE 40 MG/ML 35 ML/BOTTLE PO SCH (08:34)
[2017-04-26] MEDS: DESITIN 4OZ/NYSTATIN 15 GRAM MIXTURE PASTE TOP SCH ×2 (08:35→20:21)
[2017-04-26] MEDS: BACITRACIN OINT 0.9 GM PACK TOP SCH (08:35)
[2017-04-26] MEDS: MINERAL OIL/PETROLATUM OPH OINT 3.5 GM TUBE BOTH EYES SCH ×3 (08:35→20:21)
[2017-04-26] MEDS: levETIRAcetam LIQUID 100 MG/ML 30 ML/BOTTLE PO SCH ×2 (08:35→20:20)
--- NOTE | 2017-04-26 11:26 | Nephrology Progress Note ---
Nephrology - PN: Subj Interval history: Mr. norris is seen in follow-up of his renal failure. He remains unresponsive. His chest is clear to exam today. No chemistries were done today. Will continue to follow. Will check lab in the morning and determine the need for dialysis then. Exam (PN)-Nephrology - Vital Signs Vital signs: Period Temp Pulse Resp BP Sys/Post Pulse Ox Last 24 Hr 97.5 F-100.9 F 71-92 14-36 109-147/63-86 99-100 - Lab 04/25/17 05:15 04/25/17 05:15 Most recent lab results ABG pH 7.447 (7.35-7.45) 04/24/17 04:00 ABG pCO2 40.2 MM HG (35-48) 04/24/17 04:00 ABG pO2 157.8 MM HG (80-95) H 04/24/17 04:00 ABG HCO3 27.1 MMOL/L (20-26) H 04/24/17 04:00 ABG O2 Saturation 98.9 % (95-100) 04/24/17 04:00 Calcium 7.7 MG/DL (8.5-10.1) L 04/25/17 05:15 Phosphorus 3.0 MG/DL (2.5-4.9) 04/23/17 04:00 Magnesium 2.4 MG/DL (1.8-2.4) 04/25/17 05:15
[2017-04-26] MEDS: PHENYLEPHRINE DRIP 40 MG/250 ML PREMIX IV SCH (13:32)
[2017-04-26] MEDS: INSULIN GLARGINE 100 UNIT/ML SUBCUT SCH (20:17)
[2017-04-27] MEDS: ALBUTEROL/IPRATROPIUM 3 ML NEB RESP TX SCH ×4 (00:10→22:54)
[2017-04-27] MEDS: INSULIN REGULAR 100 UNIT/ML SUBCUT SCH ×6 (00:42→21:02)
[2017-04-27] MEDS: PROPOFOL 1,000 MG/100 ML BOTTLE IV SCH ×3 (00:43→21:06)
[2017-04-27 05:58] LABS: Basophils % 0.2 % (0.0-0.8); Eosinophils # 0.6 10*3/uL (0.0-0.87); Eosinophils % 7.5 % (0.00-10.9); Hematocrit 23.6 VOL% (42.0-52.0); Hemoglobin 7.8 GM/DL (14.0-18.0); Immature Granulocytes % 0.4 %; Immature Granulocytes Absolute 0.03 #; Lymphocytes # 0.8 10*3/uL (1.4-4.0); Lymphocytes % 9.6 % (21.2-54.2); Mean Corpuscular HGB Conc 33.1 GM/DL (32-36); Mean Corpuscular Hemoglobin 30 PG (27-34); Mean Corpuscular Volume 89.7 FL (87-102); Monocytes # 0.5 10*3/uL (0.11-0.8); Monocytes % 5.7 % (1.7-12.7); Neutrophils # 6.2 10*3/uL (1.4-7.4); Neutrophils % 76.6 % (38.7-73.9); Platelet Count 135 T/CUMM (130-400); Red Blood Count 2.63 MC/CUMM (3.8-5.5); Red Cell Distribution Width 17.5 % (9.3-17.3)
[2017-04-27 06:01] LABS: Albumin 2.1 G/DL (3.4-5.0); Bilirubin,Total 1.5 MG/DL (0.2-1.0); Osmolality,Calculated 282.1 MOS/KG (273-304); Potassium 3.7 MMOL/L (3.5-5.1); Total Protein 6.3 G/DL (6.4-8.3)
[2017-04-27 06:11] LABS: Magnesium 2.6 MG/DL (1.8-2.4); Phosphorous 4.9 MG/DL (2.5-4.9); Prealbumin 12.7 MG/DL (20-40)
[2017-04-27] MEDS: TOBRAMYCIN 80 MG/2 ML VIAL RESP TX SCH ×2 (07:05→22:53)
--- NOTE | 2017-04-27 08:52 | Nephrology Progress Note ---
Nephrology - PN: Subj Interval history: Ms. Mantilla is seen in follow-up of his renal impairment. He is making urine his creatinine is rising and is 4.5 today with a potassium less than 4. He is not in pulmonary edema. He is resting on the ventilator and unresponsive. We will hold off on dialysis today and reassess tomorrow with lab and x-ray. Exam (PN)-Nephrology - Vital Signs Vital signs: Period Temp Pulse Resp BP Sys/Post Pulse Ox Last 24 Hr 96.7 F-98 F 56-70 14-34 102-131/54-76 94-100 - Lab 04/27/17 05:10 04/27/17 05:10 Most recent lab results ABG pH 7.447 (7.35-7.45) 04/24/17 04:00 ABG pCO2 40.2 MM HG (35-48) 04/24/17 04:00 ABG pO2 157.8 MM HG (80-95) H 04/24/17 04:00 ABG HCO3 27.1 MMOL/L (20-26) H 04/24/17 04:00 ABG O2 Saturation 98.9 % (95-100) 04/24/17 04:00 Calcium 7.0 MG/DL (8.5-10.1) L 04/27/17 05:10 Phosphorus 4.9 MG/DL (2.5-4.9) 04/27/17 05:10 Magnesium 2.6 MG/DL (1.8-2.4) H 04/27/17 05:10
--- NOTE | 2017-04-27 09:24 | Pulmonology Progress Note ---
Pulmonary - PN: Subj Interval history: No change from pulmonary standpoint. continues to require minimal vent settings but has not had meaningful neuro recovery. No further significant bleeding from trach Exam (Progress Note) - Constitutional Vitals: Period Temp Pulse Resp BP Sys/Post Pulse Ox Last 24 Hr 96.7 F-98 F 56-70 14-34 102-131/54-74 94-100 General appearance: no acute distress - Respiratory Respiratory exam: Present: clear to auscultation bilaterally - Cardiovascular Cardiovascular exam: Present: regular rate and rhythm Results - Labs CBC & BMP: 04/27/17 05:10 04/27/17 05:10 Lab Results: I have reviewed the past 24 hour labs Assessment and Plan (1) Acute respiratory failure Status: Acute Assessment and plan: Patient stable on vent, continue current care. Needs more suctioning to prevent plugging Current Visit: Yes Qualifiers: Respiratory failure complication: hypoxia Qualified Code(s): J96.01 - Acute respiratory failure with hypoxia (2) Anoxic brain injury Status: Acute Assessment and plan: no change, Current Visit: Yes (3) Tracheostomy hemorrhage Status: Acute Assessment and plan: appears stable. Still having bloody secretions with suctioning, however, as demonstrated yesterday I feel that if he does not get regular suctioning he is at risk for complete plugging of a mainstem and raleigh out his lung again Current Visit: Yes
--- NOTE | 2017-04-27 09:29 | Hospitalist Progress Note ---
Assessment and Plan (1) Acute respiratory failure Status: Acute Assessment and plan: 1)resp failure due to neurological problems- on vent, minimal settings. occ breathes over the vent per nurses. he had a bronch 2 days ago and CXR looks better since. On antibiotics to cover psuedomonas, Zosyn, tobra, fluconazole. 2)CKD- Dr Marr monitoring daily labs for timing HD. 3)anemia due to bleeding from trach 4)cardiopulmonary arrrest- led to resp failure and anoxic brain injury. on meds for seizure. 5)prognosis is very poor. will talk to family today after I speak to DR Ulloa. Current Visit: Yes Qualifiers: Respiratory failure complication: hypoxia Qualified Code(s): J96.01 - Acute respiratory failure with hypoxia (2) Chronic kidney disease, stage IV (severe) Status: Chronic Current Visit: Yes (3) Anoxic brain injury Status: Acute Current Visit: Yes (4) Ventilator dependence Status: Acute Current Visit: Yes (5) Seizure disorder Status: Acute Current Visit: Yes (6) Coagulopathy Status: Acute Current Visit: Yes (7) Anemia due to acute blood loss Status: Acute Current Visit: Yes (8) Pneumonia due to Klebsiella pneumoniae Status: Acute Current Visit: Yes Hospitalist: Subjective Interval history: Mr Mantilla is stable on vent. His neuro exam has not changed- he does not move, withdraw to pain or track with his eyes. Exam - Constitutional Vitals: Period Temp Pulse Resp BP Sys/Post Pulse Ox Last 24 Hr 96.7 F-98 F 56-70 14-34 102-131/54-74 94-100 General appearance: normal weight, no acute distress - Head Head exam: Present: normocephalic, atraumatic - Eye Eye exam: Absent: EOMI, scleral icterus Pupils: Absent: ASHLY - Expanded ENT Exam Mouth exam: Present: moist Throat exam: Present: normal inspection - Respiratory Respiratory exam: Present: clear to auscultation bilaterally - Cardiovascular Cardiovascular exam: Present: regular rate and rhythm - GI/Abdominal GI/Abdominal exam: Present: normal bowel sounds, soft - Extremities Exam Extremities exam: Present: edema (hands and lower extremities with 1+ edema) - Skin Skin exam: Present: dry (cool today, not motteled. loyda fernandaer on.) Results - Labs CBC & BMP: 04/27/17 05:10 04/27/17 05:10 Lab Results: I have reviewed the past 24 hour labs
[2017-04-27] MEDS: FLUCONAZOLE 40 MG/ML 35 ML/BOTTLE PO SCH (09:31)
[2017-04-27] MEDS: BACITRACIN OINT 0.9 GM PACK TOP SCH (09:31)
[2017-04-27] MEDS: FUROSEMIDE 40 MG/4 ML VIAL IV SCH ×2 (09:31→17:30)
[2017-04-27] MEDS: DESITIN 4OZ/NYSTATIN 15 GRAM MIXTURE PASTE TOP SCH ×2 (09:32→21:41)
[2017-04-27] MEDS: metOLazone 5 MG TABLET PO SCH (09:33)
[2017-04-27] MEDS: MINERAL OIL/PETROLATUM OPH OINT 3.5 GM TUBE BOTH EYES SCH ×3 (09:33→21:41)
[2017-04-27] MEDS: PANTOPRAZOLE 40 MG TABLET PO SCH (09:33)
[2017-04-27] MEDS: METOPROLOL TARTRATE 25 MG TABLET PO SCH ×2 (09:34→21:41)
[2017-04-27] MEDS: levETIRAcetam LIQUID 100 MG/ML 30 ML/BOTTLE PO SCH ×2 (09:36→21:40)
[2017-04-27] MEDS: INSULIN GLARGINE 100 UNIT/ML SUBCUT SCH (21:40)
[2017-04-28] MEDS: INSULIN REGULAR 100 UNIT/ML SUBCUT SCH ×6 (00:36→23:11)
[2017-04-28] MEDS: ALBUTEROL/IPRATROPIUM 3 ML NEB RESP TX SCH ×4 (01:11→18:44)
[2017-04-28] MEDS: PROPOFOL 1,000 MG/100 ML BOTTLE IV SCH ×4 (02:55→22:56)
--- NOTE | 2017-04-28 06:24 | XRay Report ---
XR chest 1V portable Indication: Intubation. Comparison: Chest x-ray 04/26/2017 Technique: Portable AP chest was performed. Findings: Multiple tubes and medical support devices appear stable. The lung parenchyma has changed little with exception of improved inspiration. Bibasilar parenchymal opacities remain present and may in part reflect atelectasis. Bones and soft tissues appear stable. Impression: 1. No adverse interval change in chest. 04/28/2017 6:21 AM PROCEDURE INTERPRETED AT [facility] [place] DEPARTMENT OF RADIOLOGY Final Report Signed by: Dr. Anderson Funk
[2017-04-28] MEDS: TOBRAMYCIN 80 MG/2 ML VIAL RESP TX SCH ×2 (06:35→18:45)
[2017-04-28 06:52] LABS: Osmolality,Calculated 281.5 MOS/KG (273-304); Potassium 4.1 MMOL/L (3.5-5.1)
[2017-04-28] MEDS: METOPROLOL TARTRATE 25 MG TABLET PO SCH ×2 (09:27→21:30)
[2017-04-28] MEDS: PANTOPRAZOLE 40 MG TABLET PO SCH (09:29)
[2017-04-28] MEDS: metOLazone 5 MG TABLET PO SCH (09:29)
[2017-04-28] MEDS: FUROSEMIDE 40 MG/4 ML VIAL IV SCH ×2 (09:29→17:10)
[2017-04-28] MEDS: FLUCONAZOLE 40 MG/ML 35 ML/BOTTLE PO SCH (09:32)
[2017-04-28] MEDS: levETIRAcetam LIQUID 100 MG/ML 30 ML/BOTTLE PO SCH ×2 (09:32→22:00)
[2017-04-28] MEDS: DESITIN 4OZ/NYSTATIN 15 GRAM MIXTURE PASTE TOP SCH ×2 (09:33→21:30)
[2017-04-28] MEDS: MINERAL OIL/PETROLATUM OPH OINT 3.5 GM TUBE BOTH EYES SCH ×3 (09:33→21:30)
[2017-04-28] MEDS: BACITRACIN OINT 0.9 GM PACK TOP SCH (09:39)
--- NOTE | 2017-04-28 09:43 | Hospitalist Progress Note ---
Assessment and Plan (1) Acute respiratory failure Status: Acute Assessment and plan: 1)resp failure due to neurological problems- on vent, minimal settings. occ breathes over the vent per nurses. he had a bronch 3 days ago which and CXR looks better since. On antibiotics to cover psuedomonas-- Zosyn, tobra, fluconazole. His CPAP trials have not gone as well recently. Discuss transfer to LTAC with [facility]. 2)CKD- Dr Marr monitoring daily labs for timing HD. 3)anemia due to bleeding from trach which has mostly stopped though occ some fresh blood suctioned from lungs per nurse. 4)cardiopulmonary arrrest- led to resp failure and anoxic brain injury. on meds for seizure. 5)prognosis is very poor- family made him DNR but do not want to withdraw vent per reports of prior conversations with them. I will talk to them today- I was not able to find them yesterday. Current Visit: Yes Qualifiers: Respiratory failure complication: hypoxia Qualified Code(s): J96.01 - Acute respiratory failure with hypoxia (2) Chronic kidney disease, stage IV (severe) Status: Chronic Current Visit: Yes (3) Anoxic brain injury Status: Acute Current Visit: Yes (4) Ventilator dependence Status: Acute Current Visit: Yes (5) Seizure disorder Status: Acute Current Visit: Yes (6) Coagulopathy Status: Acute Current Visit: Yes (7) Anemia due to acute blood loss Status: Acute Current Visit: Yes (8) Pneumonia due to Klebsiella pneumoniae Status: Acute Current Visit: Yes Hospitalist: Subjective Interval history: MR Mantilla is about the same. No events overnight. Discussed dispo with CM who will call [facility] re:LTAC referral. Exam - Constitutional Vitals: Period Temp Pulse Resp BP Sys/Post Pulse Ox Last 24 Hr 96.8 F-97.7 F 61-74 13-33 74-140/40-76 96-100 General appearance: normal weight - Eye Eye exam: Absent: EOMI, scleral icterus Pupils: Absent: ASHLY - Expanded ENT Exam Mouth exam: Present: moist Throat exam: Present: normal inspection - Respiratory Respiratory exam: Present: clear to auscultation bilaterally - Cardiovascular Cardiovascular exam: Present: regular rate and rhythm - GI/Abdominal GI/Abdominal exam: Present: normal bowel sounds, soft - Extremities Exam Extremities exam: Absent: edema - Neurological Exam Neurological exam: Present: altered, motor sensory deficit (occ withdraws to deep pain. otherwise unresponsive.). Absent: CN II-XII intact Results - Labs CBC & BMP: 04/27/17 05:10 04/28/17 04:30 Lab Results: I have reviewed the past 24 hour labs
--- NOTE | 2017-04-28 11:57 | Nephrology Progress Note ---
Nephrology - PN: Subj Interval history: He remains on the ventilator. He is unresponsive. Exam (PN)-Nephrology - Vital Signs Vital signs: Period Temp Pulse Resp BP Sys/Post Pulse Ox Last 24 Hr 96.8 F-97.7 F 61-78 3-33 74-140/40-76 96-100 Exam: ENT: Intubated Cardiovascular: Regular rate and rhythm. No murmur rub or gallop Lungs: Clear Extremities: Trace edema - Lab 04/27/17 05:10 04/28/17 04:30 Most recent lab results ABG pH 7.447 (7.35-7.45) 04/24/17 04:00 ABG pCO2 40.2 MM HG (35-48) 04/24/17 04:00 ABG pO2 157.8 MM HG (80-95) H 04/24/17 04:00 ABG HCO3 27.1 MMOL/L (20-26) H 04/24/17 04:00 ABG O2 Saturation 98.9 % (95-100) 04/24/17 04:00 Calcium 7.0 MG/DL (8.5-10.1) L 04/28/17 04:30 Phosphorus 4.9 MG/DL (2.5-4.9) 04/27/17 05:10 Magnesium 2.6 MG/DL (1.8-2.4) H 04/27/17 05:10 Assessment and Plan (1) Chronic kidney disease, stage IV (severe) Status: Chronic Assessment and plan: 61-year-old man admitted with: * CRF stage IV. Baseline creatinine mid threes * ARF on CRF. Dialyzed yesterday. He remains oliguric * Nephrotic syndrome * Diabetes mellitus * Cardiomyopathy * Cardiac arrest. * Ventilatory failure. Post tracheostomy * Anoxic brain injury. No improvement in neurologic status Current Visit: Yes (2) Acute respiratory failure Status: Acute Current Visit: Yes Qualifiers: Respiratory failure complication: hypoxia Qualified Code(s): J96.01 - Acute respiratory failure with hypoxia (3) Cardiac arrest Status: Acute Current Visit: Yes (4) Cellulitis and abscess of face Status: Acute Current Visit: No (5) Cardiomyopathy Status: Chronic Current Visit: No (6) Diabetes Status: Chronic Current Visit: No Qualifiers: Diabetes mellitus type: type 1 Diabetes mellitus complication status: with kidney complications Diabetes mellitus complication detail: with chronic kidney disease Chronic kidney disease stage: stage 4 (severe) Qualified Code (s): E10.22 - Type 1 diabetes mellitus with diabetic chronic kidney disease; N18.4 - Chronic kidney disease, stage 4 (severe) (7) Nephrotic syndrome Status: Chronic Current Visit: No
--- NOTE | 2017-04-28 14:18 | Pulmonology Progress Note ---
Pulmonary - PN: Subj Interval history: This 61-year-old man had a cardiac arrest and has finished the [facility] protocol. He remains on the ventilator. He required higher settings of PEEP and FiO2 over the weekend but this morning his PO2 is 264 on 90% oxygen and 15 of PEEP. We can reduce both the FiO2 and PEEP and recheck ABGs this morning. He remains unresponsive. Apparently does have a bit of a gag reflex. Neurology is to review his case and see what they think about prognosis. Family has made him a DO NOT RESUSCITATE. 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 04/14/2017 patient remains unresponsive. Neurologic evaluation has indicated severe hypoxic brain injury. ABGs are improved. Chest x-ray is stable. Will reduce FiO2 and PEEP. Hopefully can start weaning trial soon. His renal function is getting worse with creatinine up to 6.9. Prognosis is grave. Continuing full support at present. 04/15/2017 patient remains unresponsive. ABGs a little better. Will reduce PEEP to 5 cm. Start weaning trials. Renal function getting worse by the day. Chest x-ray looks a little bit wet. Getting saline to try to maintain urine output. Prognosis grave. 04/16/2017 bloody secretions have come from his endotracheal tube. He has a right lower lobe infiltrate. He has grown Klebsiella from his sputum. He is on Zosyn for that already. Remains unresponsive. Prognosis is poor. Creatinine is 7.7. Patient has end-stage cardiomyopathy and is status post cardiac arrest. He has severe hypoxic brain injury. 04/17/17 ABGs look reasonable. Patient tolerating longer CPAP trials. Patient not able to defend his airway. There is some spontaneous movement but no purposeful movement and he does not respond to anything except painful stimulation. 04/18/2017 patient continues to be unresponsive. His eyes deviate to the right. No change in x-rays. ABGs look good. Creatinine 8.5. Continuing with CPAP trials, however patient not able to defend airway at this point. 04/19/2017 patient remains unresponsive. Eyes deviate to the right. He has some twitching in his left arm. I wonder if there is seizure activity. 04/20/2017 patient is doing some CPAP trials although his mental status is not good. He will require tracheostomy. 04/21/2017 patient was having some twitching activity yesterday. He was seen by Dr. Ulloa. Started on seizure medications. Still no signs of neurologic recovery. Patient is to have tracheostomy today. Consider LTAC transfer after that. 04/22/2017 patient had tracheostomy yesterday. Dr. Grajeda called me afterwards, stated that he saw something distally in the lower trachea. Plans were made for bronchoscopy this morning. X-ray this morning shows almost opacification of the left lung. He may have something in his left main bronchus. We plan to do bronchoscopy shortly. His mental status is unchanged. Likely will need to go to LTAC. 04/23/2017 x-ray this morning looks much better. He had some thrombi in the left main bronchus that we removed yesterday with bronchoscopy. Still has patchy bilateral infiltrates. Patient remains unresponsive. He is getting dialysis on mechanical ventilation. Apparently his insurance company has declined transfer to LTAC. Labs pending this morning. Continuing support. 04/24/2017 ABGs look good. Chest x-ray shows good aeration of both sides. He does have some basilar atelectasis. Weaning trials were held yesterday because of bleeding per tracheostomy. This seems better this morning. Patient gets a little heparin with his dialysis. He is on baby aspirin. I will hold the baby aspirin. Status post cardiac arrest with severe hypoxic brain injury. Also has Klebsiella pneumonia. Severe cardiomyopathy. Patient is a DO NOT RESUSCITATE but family wants to continue supportive care with mechanical ventilation and dialysis for now. 04/28/2017 patient tolerating some CPAP. Still no change in mental status. Cultures grew out gram-negative rods. Adding Levaquin to the tobramycin for Klebsiella and Acinetobacter Exam (Progress Note) - Constitutional Vitals: Period Temp Pulse Resp BP Sys/Post Pulse Ox Last 24 Hr 96.8 F-99 F 64-84 11-36 74-129/40-74 96-100 Exam: Patient is unresponsive. His eyes continue to deviate and not to follow. Vital signs normal. He does have some respiratory effort. He does not respond to painful stimulus. Pupils small irregular and sluggish. Face symmetrical. Orotracheal tube is in place. Neck is supple. Chest reveals scattered rhonchi bilaterally but equal breath sounds today. Heart normal rate rhythm no murmurs. Abdomen soft no masses. Extremities no clubbing cyanosis edema. Results - Labs CBC & BMP: 04/27/17 05:10 04/28/17 04:30 Lab Results: I have reviewed the past 24 hour labs - Diagnostic Findings Procedure: Chest x-ray: image reviewed by me (Some bibasilar atelectatic infiltrates little change from previous.) Assessment and Plan (1) Acute respiratory failure Status: Acute Assessment and plan: Patient is on the ventilator 100% oxygen. ABGs look good at present. Will reduce FiO2 to 60%. Certainly cannot start weaning until we see what his mental status is like and that will be after [facility] protocol. 04/13/17 ABGs improved. Will reduce FiO2 and PEEP a little. Prognosis is poor. 04/14/2017 ABGs improved. We can reduce both FiO2 and PEEP. Hopefully one would get his PEEP down to 6 we can start weaning. 04/15/2017 ABGs are better. Reducing PEEP. Start weaning. Mental status will guide us with weaning. 04/16/2017 patient starting to do CPAP. Mental status will guide us where to go later. If we are to continue long-term mechanical ventilatory support and would likely need a tracheostomy in a few days. 04/17/2017 tolerating prolonged CPAP trials. It appears that we will likely be doing a tracheostomy next week if no other changes. I do not think he can defend his airway at this point. 04/18/2017 patient continues to tolerate CPAP, however he is not alert and unable to defend his airway at this point. 04/19/2017 continuing with CPAP trials. ABGs improved. Reduce FiO2. Progressing with CPAP. Likely will need tracheostomy 04/20/2017 patient tolerating CPAP trials but would not be able to defend his airway. Will proceed with ENT consult for tracheostomy. 04/21/2017 ABGs are pending but so far we have been able to relate him fairly easily. He is for tracheostomy today. Reasonable to continue ventilatory support for a couple of weeks. His family is seeing some motion that they are interpreting as purposeful. I have not seen any purposeful motion. He does have some seizure activity. 04/22/2017 patient has done okay with CPAP's prior to the tracheostomy. He required pressors after that. He has opacification of the left long. Hopefully we can clear that up with bronchoscopy. Suspect mucous plugging or thrombi in the left mainstem. 04/23/2017 respiratory failure following cardiac arrest with hypoxic brain injury. Klebsiella pneumonia. Left lung looks better radiographically. Apparently had thrombi in the left main bronchus due either to bleeding from the tracheostomy or pulmonary hemorrhage. CT was negative for pulmonary embolus. He has bibasilar pneumonia and pleural effusions. 04/24/2017 ABGs look good. Resume weaning trials today. 04/28/2017 continuing with weaning trials. Oxygen saturations acceptable. Current Visit: Yes Qualifiers: Respiratory failure complication: hypoxia Qualified Code(s): J96.01 - Acute respiratory failure with hypoxia (2) Cardiac arrest Status: Acute Assessment and plan: Patient had a cardiac arrest last night. He has known severe cardiomyopathy. Did not have any known electrolyte imbalance. Does have chronic renal failure with a creatinine now around 5. He would be at increased risk for a pulmonary embolism. 04/13/17 it appears that he has had significant brain injury. Await neurologic evaluation. 04/14/2017 and apparent severe hypoxic brain injury. See neurology note 04/15/2017 apparent severe hypoxic brain injury. 04/16/2017 continues to exhibit signs of severe hypoxic brain injury. 04/17/2017 severe brain injury. 04/18/2017 again continues to show signs of hypoxic brain injury. Responds to painful stimulus. Does not follow with his eyes. Does not respond to questions. Eyes deviate to the right. 04/19/2017 hypoxic brain injury. Patient is turning his head at times and moving all little but not in response to requests. Does not appear to be purposeful. 04/20/2017 patient has a severe cardiomyopathy. Has severe hypoxic brain injury post cardiac arrest. His family wants us to continue full support. Will need tracheostomy to wean off ventilator. He is not able to defend his airway. 04/21/2017 severe cardiomyopathy hypoxic brain injury. We had considered pulmonary embolus before. He is off anticoagulants now because of some pulmonary hemorrhage. Will obtain a CT PE protocol once he gets the trach done. 04/22/17 hypoxic brain injury. Cardiac arrest related to his cardiomyopathy. 04/23/2017 status post cardiac arrest probably due to his cardiomyopathy with arrhythmias. Hypoxic brain injury persists. 04/24/2017 has severe cardiomyopathy with subsequent arrest. Hypoxic brain injury. Prognosis is poor. 04/28/2017 severe hypoxic brain injury. Current Visit: Yes (3) Chronic renal insufficiency Status: Chronic Assessment and plan: Creatinine has gone up from about 3.7-5 over the last few days. 04/13/17 creatinine up to 5.9 04/14/2017 creatinine is up to 6.9. Will start on some nasogastric feedings and IV fluids. 04/15/2017 creatinine up to 7.5. Defer to nephrology 04/16/2017 creatinine is 7.7. Perhaps it's levelling off. 04/17/2017 creatinine 8.1. Renal following 04/18/2017 creatinine 8.5 now. Bicarb level is 19. Potassium 4.8. He is making urine. 04/19/2017 patient started on dialysis yesterday. Chest x-ray looks a little bit less wet. 04/20/2017 defer to nephrology. He has been started on dialysis and his x-ray is looking a little better. 04/21/2017 continuing dialysis. 04/22/2017 getting dialysis. 04/23/2017 getting dialysis regularly. 04/24/2017 acute renal failure being treated with dialysis. He is due for dialysis today. 04/28/2017 followed by renal with dialysis as required. Current Visit: Yes (4) Congestive heart failure Status: Chronic Assessment and plan: Systolic acute on chronic congestive failure due to severe cardiomyopathy. His troponins are not elevated so it does not appear that he had a myocardial infarction as the cause of his arrest last night. 04/13/17 x-ray shows increased interstitial markings consistent with congestive heart failure, but not brigida pulmonary edema. 04/14/2017 does not appear to be in pulmonary edema. 04/15/2017 appears to be developing pulmonary edema. However ABGs are better. IV fluids started yesterday by cardiology. 04/16/2017 this lobe infiltrate. Difficult to tell him what this is heart failure, which may be the Klebsiella pneumonia. He is on Zosyn. 04/17/2017 chest x-ray compatible with mild congestive heart failure. Also getting antibiotics for Klebsiella pneumonia 04/18/2017 severe cardiomyopathy. 04/19/2017 seems to be a little better after dialysis. 04/20/2017 again chest x-ray is a little better. 04/21/2017 improved with dialysis. 04/22/2017 severe cardiomyopathy. Does not appear to be in failure at present. 04/23/2017 severe cardiomyopathy with bilateral pleural effusions. 04/24/2017 severe cardiomyopathy. Bilateral modest pleural effusions and basilar atelectasis. 04/28/2017 severe cardiomyopathy, probably mild failure at this point. Current Visit: Yes Qualifiers: Congestive heart failure type: unspecified congestive heart failure type Congestive heart failure chronicity: acute on chronic Qualified Code(s): I50.9 - Heart failure, unspecified (5) Cellulitis and abscess of face Status: Acute Assessment and plan: He has actually completed full course of treatment for the cellulitis. We need to be careful about vancomycin with his renal failure. Defer to ENT and nephrology on antibiotics and dosing. Current Visit: No (6) Nephrotic syndrome Status: Chronic Assessment and plan: He has peripheral edema. Low serum protein. Increased risk for DVT/PTED. Current Visit: No (7) Pulmonary embolism Status: Ruled-out Assessment and plan: Perfusion lung scan suggestive of pulmonary embolism. Unable to obtain PE protocol CT scan due to renal failure. Patient is on empiric heparin infusion. 04/14/2017 continuing heparin for suspected pulmonary thromboembolic disease 04/15/2017 patient is on heparin. 04/16/2017 his perfusion lung scan was suggestive of pulmonary embolism. We do not have a definitive diagnosis. He has had some pulmonary hemorrhage. I stop the heparin yesterday. Difficult situation. 04/17/2017 this is not a definitive diagnosis which was suspected at the time of his arrest. He had nonspecifically abnormal VQ lung scan. We did not do a CT PE protocol because of the renal failure. His heparin has been held because of bloody pulmonary secretions. Continue to monitor. 04/18/2017 will put on subcu heparin. 04/19/2017 never clear-cut about whether he had an embolus. He had some pulmonary hemorrhage when fully anticoagulated. We now have all subcu heparin prophylactic doses. Now that he is on dialysis we can do a CT PE protocol and will consider that tomorrow. 04/20/2017 this is not a definite diagnosis. We are using DVT prophylaxis at present. It will be worthwhile at some point to get CT PE protocol now that he is on dialysis. 04/21/2017 this is a questionable diagnosis. Plan CT PE protocol either later today or tomorrow. 04/22/2017 again need to do a CT PE protocol. Likely will do that later today. 04/23/2017 pulmonary embolus has been ruled out. Current Visit: Yes
[2017-04-28] MEDS: LEVOFLOXACIN INJ 250 MG in PREMIX 1 EACH IV SCH (17:10)
[2017-04-28] MEDS: INSULIN GLARGINE 100 UNIT/ML SUBCUT SCH (21:30)
[2017-04-29] MEDS: INSULIN REGULAR 100 UNIT/ML SUBCUT SCH ×6 (01:00→21:06)
[2017-04-29] MEDS: ALBUTEROL/IPRATROPIUM 3 ML NEB RESP TX SCH ×4 (01:22→19:04)
[2017-04-29] MEDS: PROPOFOL 1,000 MG/100 ML BOTTLE IV SCH ×3 (01:47→15:50)
--- NOTE | 2017-04-29 06:58 | Pulmonology Progress Note ---
Pulmonary - PN: Subj Interval history: This 61-year-old man had a cardiac arrest and has finished the [facility] protocol. He remains on the ventilator. He required higher settings of PEEP and FiO2 over the weekend but this morning his PO2 is 264 on 90% oxygen and 15 of PEEP. We can reduce both the FiO2 and PEEP and recheck ABGs this morning. He remains unresponsive. Apparently does have a bit of a gag reflex. Neurology is to review his case and see what they think about prognosis. Family has made him a DO NOT RESUSCITATE. 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 04/14/2017 patient remains unresponsive. Neurologic evaluation has indicated severe hypoxic brain injury. ABGs are improved. Chest x-ray is stable. Will reduce FiO2 and PEEP. Hopefully can start weaning trial soon. His renal function is getting worse with creatinine up to 6.9. Prognosis is grave. Continuing full support at present. 04/15/2017 patient remains unresponsive. ABGs a little better. Will reduce PEEP to 5 cm. Start weaning trials. Renal function getting worse by the day. Chest x-ray looks a little bit wet. Getting saline to try to maintain urine output. Prognosis grave. 04/16/2017 bloody secretions have come from his endotracheal tube. He has a right lower lobe infiltrate. He has grown Klebsiella from his sputum. He is on Zosyn for that already. Remains unresponsive. Prognosis is poor. Creatinine is 7.7. Patient has end-stage cardiomyopathy and is status post cardiac arrest. He has severe hypoxic brain injury. 04/17/17 ABGs look reasonable. Patient tolerating longer CPAP trials. Patient not able to defend his airway. There is some spontaneous movement but no purposeful movement and he does not respond to anything except painful stimulation. 04/18/2017 patient continues to be unresponsive. His eyes deviate to the right. No change in x-rays. ABGs look good. Creatinine 8.5. Continuing with CPAP trials, however patient not able to defend airway at this point. 04/19/2017 patient remains unresponsive. Eyes deviate to the right. He has some twitching in his left arm. I wonder if there is seizure activity. 04/20/2017 patient is doing some CPAP trials although his mental status is not good. He will require tracheostomy. 04/21/2017 patient was having some twitching activity yesterday. He was seen by Dr. Ulloa. Started on seizure medications. Still no signs of neurologic recovery. Patient is to have tracheostomy today. Consider LTAC transfer after that. 04/22/2017 patient had tracheostomy yesterday. Dr. Grajeda called me afterwards, stated that he saw something distally in the lower trachea. Plans were made for bronchoscopy this morning. X-ray this morning shows almost opacification of the left lung. He may have something in his left main bronchus. We plan to do bronchoscopy shortly. His mental status is unchanged. Likely will need to go to LTAC. 04/23/2017 x-ray this morning looks much better. He had some thrombi in the left main bronchus that we removed yesterday with bronchoscopy. Still has patchy bilateral infiltrates. Patient remains unresponsive. He is getting dialysis on mechanical ventilation. Apparently his insurance company has declined transfer to LTAC. Labs pending this morning. Continuing support. 04/24/2017 ABGs look good. Chest x-ray shows good aeration of both sides. He does have some basilar atelectasis. Weaning trials were held yesterday because of bleeding per tracheostomy. This seems better this morning. Patient gets a little heparin with his dialysis. He is on baby aspirin. I will hold the baby aspirin. Status post cardiac arrest with severe hypoxic brain injury. Also has Klebsiella pneumonia. Severe cardiomyopathy. Patient is a DO NOT RESUSCITATE but family wants to continue supportive care with mechanical ventilation and dialysis for now. 04/28/2017 patient tolerating some CPAP. Still no change in mental status. Cultures grew out gram-negative rods. Adding Levaquin to the tobramycin for Klebsiella and Acinetobacter 04/29/2017 patient is tolerating CPAP quite well. Will start on trach collar. Perhaps we can get him to full-time trach collar soon. Then could start looking for placement. Exam (Progress Note) - Constitutional Vitals: Period Temp Pulse Resp BP Sys/Post Pulse Ox Last 24 Hr 97.7 F-99 F 70-84 11-36 94-131/50-74 100-100 Exam: Patient is unresponsive. His eyes continue to deviate and not to follow. Vital signs normal. He does have some respiratory effort. He does not respond to painful stimulus. Pupils small irregular and sluggish. Face symmetrical. Orotracheal tube is in place. Neck is supple. Chest reveals scattered rhonchi bilaterally but equal breath sounds today. Heart normal rate rhythm no murmurs. Abdomen soft no masses. Extremities no clubbing cyanosis edema. Little change from yesterday's exam. Results - Labs CBC & BMP: 04/27/17 05:10 04/28/17 04:30 Lab Results: I have reviewed the past 24 hour labs Assessment and Plan (1) Acute respiratory failure Status: Acute Assessment and plan: Patient is on the ventilator 100% oxygen. ABGs look good at present. Will reduce FiO2 to 60%. Certainly cannot start weaning until we see what his mental status is like and that will be after [place] protocol. 04/13/17 ABGs improved. Will reduce FiO2 and PEEP a little. Prognosis is poor. 04/14/2017 ABGs improved. We can reduce both FiO2 and PEEP. Hopefully one would get his PEEP down to 6 we can start weaning. 04/15/2017 ABGs are better. Reducing PEEP. Start weaning. Mental status will guide us with weaning. 04/16/2017 patient starting to do CPAP. Mental status will guide us where to go later. If we are to continue long-term mechanical ventilatory support and would likely need a tracheostomy in a few days. 04/17/2017 tolerating prolonged CPAP trials. It appears that we will likely be doing a tracheostomy next week if no other changes. I do not think he can defend his airway at this point. 04/18/2017 patient continues to tolerate CPAP, however he is not alert and unable to defend his airway at this point. 04/19/2017 continuing with CPAP trials. ABGs improved. Reduce FiO2. Progressing with CPAP. Likely will need tracheostomy 04/20/2017 patient tolerating CPAP trials but would not be able to defend his airway. Will proceed with ENT consult for tracheostomy. 04/21/2017 ABGs are pending but so far we have been able to relate him fairly easily. He is for tracheostomy today. Reasonable to continue ventilatory support for a couple of weeks. His family is seeing some motion that they are interpreting as purposeful. I have not seen any purposeful motion. He does have some seizure activity. 04/22/2017 patient has done okay with CPAP's prior to the tracheostomy. He required pressors after that. He has opacification of the left long. Hopefully we can clear that up with bronchoscopy. Suspect mucous plugging or thrombi in the left mainstem. 04/23/2017 respiratory failure following cardiac arrest with hypoxic brain injury. Klebsiella pneumonia. Left lung looks better radiographically. Apparently had thrombi in the left main bronchus due either to bleeding from the tracheostomy or pulmonary hemorrhage. CT was negative for pulmonary embolus. He has bibasilar pneumonia and pleural effusions. 04/24/2017 ABGs look good. Resume weaning trials today. 04/28/2017 continuing with weaning trials. Oxygen saturations acceptable. 04/29/2017 patient tolerated CPAP quite well. Start on trach collar. Current Visit: Yes Qualifiers: Respiratory failure complication: hypoxia Qualified Code(s): J96.01 - Acute respiratory failure with hypoxia (2) Cardiac arrest Status: Acute Assessment and plan: Patient had a cardiac arrest last night. He has known severe cardiomyopathy. Did not have any known electrolyte imbalance. Does have chronic renal failure with a creatinine now around 5. He would be at increased risk for a pulmonary embolism. 04/13/17 it appears that he has had significant brain injury. Await neurologic evaluation. 04/14/2017 and apparent severe hypoxic brain injury. See neurology note 04/15/2017 apparent severe hypoxic brain injury. 04/16/2017 continues to exhibit signs of severe hypoxic brain injury. 04/17/2017 severe brain injury. 04/18/2017 again continues to show signs of hypoxic brain injury. Responds to painful stimulus. Does not follow with his eyes. Does not respond to questions. Eyes deviate to the right. 04/19/2017 hypoxic brain injury. Patient is turning his head at times and moving all little but not in response to requests. Does not appear to be purposeful. 04/20/2017 patient has a severe cardiomyopathy. Has severe hypoxic brain injury post cardiac arrest. His family wants us to continue full support. Will need tracheostomy to wean off ventilator. He is not able to defend his airway. 04/21/2017 severe cardiomyopathy hypoxic brain injury. We had considered pulmonary embolus before. He is off anticoagulants now because of some pulmonary hemorrhage. Will obtain a CT PE protocol once he gets the trach done. 04/22/17 hypoxic brain injury. Cardiac arrest related to his cardiomyopathy. 04/23/2017 status post cardiac arrest probably due to his cardiomyopathy with arrhythmias. Hypoxic brain injury persists. 04/24/2017 has severe cardiomyopathy with subsequent arrest. Hypoxic brain injury. Prognosis is poor. 04/28/2017 severe hypoxic brain injury. 04/29/2017 severe hypoxic brain injury due to cardiac arrest from severe cardiomyopathy. Prognosis remains poor Current Visit: Yes (3) Chronic renal insufficiency Status: Chronic Assessment and plan: Creatinine has gone up from about 3.7-5 over the last few days. 04/13/17 creatinine up to 5.9 04/14/2017 creatinine is up to 6.9. Will start on some nasogastric feedings and IV fluids. 04/15/2017 creatinine up to 7.5. Defer to nephrology 04/16/2017 creatinine is 7.7. Perhaps it's levelling off. 04/17/2017 creatinine 8.1. Renal following 04/18/2017 creatinine 8.5 now. Bicarb level is 19. Potassium 4.8. He is making urine. 04/19/2017 patient started on dialysis yesterday. Chest x-ray looks a little bit less wet. 04/20/2017 defer to nephrology. He has been started on dialysis and his x-ray is looking a little better. 04/21/2017 continuing dialysis. 04/22/2017 getting dialysis. 04/23/2017 getting dialysis regularly. 04/24/2017 acute renal failure being treated with dialysis. He is due for dialysis today. 04/28/2017 followed by renal with dialysis as required. 04/29/2017 getting dialysis as required Current Visit: Yes (4) Congestive heart failure Status: Chronic Assessment and plan: Systolic acute on chronic congestive failure due to severe cardiomyopathy. His troponins are not elevated so it does not appear that he had a myocardial infarction as the cause of his arrest last night. 04/13/17 x-ray shows increased interstitial markings consistent with congestive heart failure, but not brigida pulmonary edema. 04/14/2017 does not appear to be in pulmonary edema. 04/15/2017 appears to be developing pulmonary edema. However ABGs are better. IV fluids started yesterday by cardiology. 04/16/2017 this lobe infiltrate. Difficult to tell him what this is heart failure, which may be the Klebsiella pneumonia. He is on Zosyn. 04/17/2017 chest x-ray compatible with mild congestive heart failure. Also getting antibiotics for Klebsiella pneumonia 04/18/2017 severe cardiomyopathy. 04/19/2017 seems to be a little better after dialysis. 04/20/2017 again chest x-ray is a little better. 04/21/2017 improved with dialysis. 04/22/2017 severe cardiomyopathy. Does not appear to be in failure at present. 04/23/2017 severe cardiomyopathy with bilateral pleural effusions. 04/24/2017 severe cardiomyopathy. Bilateral modest pleural effusions and basilar atelectasis. 04/28/2017 severe cardiomyopathy, probably mild failure at this point. 04/29/2017 this appears to be better controlled. Current Visit: Yes Qualifiers: Congestive heart failure type: unspecified congestive heart failure type Congestive heart failure chronicity: acute on chronic Qualified Code(s): I50.9 - Heart failure, unspecified (5) Cellulitis and abscess of face Status: Acute Assessment and plan: He has actually completed full course of treatment for the cellulitis. We need to be careful about vancomycin with his renal failure. Defer to ENT and nephrology on antibiotics and dosing. Current Visit: No (6) Nephrotic syndrome Status: Chronic Assessment and plan: He has peripheral edema. Low serum protein. Increased risk for DVT/PTED. Current Visit: No (7) Pulmonary embolism Status: Ruled-out Assessment and plan: Perfusion lung scan suggestive of pulmonary embolism. Unable to obtain PE protocol CT scan due to renal failure. Patient is on empiric heparin infusion. 04/14/2017 continuing heparin for suspected pulmonary thromboembolic disease 04/15/2017 patient is on heparin. 04/16/2017 his perfusion lung scan was suggestive of pulmonary embolism. We do not have a definitive diagnosis. He has had some pulmonary hemorrhage. I stop the heparin yesterday. Difficult situation. 04/17/2017 this is not a definitive diagnosis which was suspected at the time of his arrest. He had nonspecifically abnormal VQ lung scan. We did not do a CT PE protocol because of the renal failure. His heparin has been held because of bloody pulmonary secretions. Continue to monitor. 04/18/2017 will put on subcu heparin. 04/19/2017 never clear-cut about whether he had an embolus. He had some pulmonary hemorrhage when fully anticoagulated. We now have all subcu heparin prophylactic doses. Now that he is on dialysis we can do a CT PE protocol and will consider that tomorrow. 04/20/2017 this is not a definite diagnosis. We are using DVT prophylaxis at present. It will be worthwhile at some point to get CT PE protocol now that he is on dialysis. 04/21/2017 this is a questionable diagnosis. Plan CT PE protocol either later today or tomorrow. 04/22/2017 again need to do a CT PE protocol. Likely will do that later today. 04/23/2017 pulmonary embolus has been ruled out. Current Visit: Yes
[2017-04-29] MEDS: TOBRAMYCIN 80 MG/2 ML VIAL RESP TX SCH ×2 (08:09→19:04)
[2017-04-29] MEDS: LANSOPRAZOLE ODT 30 MG TABLET PO SCH (08:30)
[2017-04-29] MEDS: metOLazone 5 MG TABLET PO SCH (08:30)
[2017-04-29] MEDS: METOPROLOL TARTRATE 25 MG TABLET PO SCH ×2 (08:30→21:07)
[2017-04-29] MEDS: FUROSEMIDE 40 MG/4 ML VIAL IV SCH ×2 (08:34→16:24)
[2017-04-29] MEDS: levETIRAcetam LIQUID 100 MG/ML 30 ML/BOTTLE PO SCH ×2 (08:42→21:09)
[2017-04-29] MEDS: MINERAL OIL/PETROLATUM OPH OINT 3.5 GM TUBE BOTH EYES SCH ×3 (08:42→21:07)
[2017-04-29] MEDS: BACITRACIN OINT 0.9 GM PACK TOP SCH (08:47)
[2017-04-29] MEDS: DESITIN 4OZ/NYSTATIN 15 GRAM MIXTURE PASTE TOP SCH ×2 (08:48→21:07)
[2017-04-29] MEDS: FLUCONAZOLE 40 MG/ML 35 ML/BOTTLE PO SCH (09:18)
--- NOTE | 2017-04-29 10:50 | Hospitalist Progress Note ---
Assessment and Plan (1) Acute respiratory failure Status: Acute Assessment and plan: 1)resp failure due to neurological problems- trying trach collar today. On antibiotics to cover psuedomonas-- Zosyn, tobra, fluconazole. 2)CKD- Dr Marr monitoring daily labs for timing HD. 3)anemia due to bleeding from trach which has mostly stopped though occ some fresh blood suctioned from lungs per nurse. 4)cardiopulmonary arrrest- led to resp failure and anoxic brain injury. on meds for seizure. 5)prognosis is very poor- family made him DNR but do not want to withdraw vent per reports of prior conversations with them. His niece is seeking conservatorship. Current Visit: Yes Qualifiers: Respiratory failure complication: hypoxia Qualified Code(s): J96.01 - Acute respiratory failure with hypoxia (2) Chronic kidney disease, stage IV (severe) Status: Chronic Current Visit: Yes (3) Anoxic brain injury Status: Acute Current Visit: Yes (4) Ventilator dependence Status: Acute Current Visit: Yes (5) Seizure disorder Status: Acute Current Visit: Yes (6) Coagulopathy Status: Acute Current Visit: Yes (7) Anemia due to acute blood loss Status: Acute Current Visit: Yes (8) Pneumonia due to Klebsiella pneumoniae Status: Acute Current Visit: Yes Hospitalist: Subjective Interval history: Mr Mantilla is stable. On trach collar when I saw him this morning, tolerating for at least the first 30 minutes. I talked to his niece who is seeking conservatorship. Her questions were answered. Exam - Constitutional Vitals: Period Temp Pulse Resp BP Sys/Post Pulse Ox Last 24 Hr 97.2 F-99 F 71-89 11-36 103-131/53-74 100-100 General appearance: normal weight, no acute distress - Head Head exam: Present: normocephalic, atraumatic - Eye Eye exam: Present: EOMI. Absent: scleral icterus - Expanded ENT Exam Mouth exam: Present: moist Throat exam: Present: normal inspection - Respiratory Respiratory exam: Present: clear to auscultation bilaterally - Cardiovascular Cardiovascular exam: Present: regular rate and rhythm - GI/Abdominal GI/Abdominal exam: Present: normal bowel sounds, soft - Extremities Exam Extremities exam: Absent: edema Results - Labs CBC & BMP: 04/27/17 05:10 04/28/17 04:30 Lab Results: I have reviewed the past 24 hour labs
--- NOTE | 2017-04-29 19:19 | Nephrology Progress Note ---
Nephrology - PN: Subj Interval history: He remains unresponsive. He is currently on trach collar Exam (PN)-Nephrology - Vital Signs Vital signs: Period Temp Pulse Resp BP Sys/Post Pulse Ox Last 24 Hr 96.8 F-98.5 F 71-89 13-33 108-154/54-93 97-100 Exam: ENT: Trachea Cardiovascular: Regular rate and rhythm. No murmur rub or gallop Lungs: Clear Extremities: Trace edema - Lab 04/27/17 05:10 04/28/17 04:30 Most recent lab results ABG pH 7.447 (7.35-7.45) 04/24/17 04:00 ABG pCO2 40.2 MM HG (35-48) 04/24/17 04:00 ABG pO2 157.8 MM HG (80-95) H 04/24/17 04:00 ABG HCO3 27.1 MMOL/L (20-26) H 04/24/17 04:00 ABG O2 Saturation 98.9 % (95-100) 04/24/17 04:00 Calcium 7.0 MG/DL (8.5-10.1) L 04/28/17 04:30 Phosphorus 4.9 MG/DL (2.5-4.9) 04/27/17 05:10 Magnesium 2.6 MG/DL (1.8-2.4) H 04/27/17 05:10 Assessment and Plan (1) Chronic kidney disease, stage IV (severe) Status: Chronic Assessment and plan: 61-year-old man admitted with: * CRF stage IV. Baseline creatinine mid threes * ARF on CRF. Dialyzed yesterday. * Nephrotic syndrome * Diabetes mellitus * Cardiomyopathy * Cardiac arrest. * Ventilatory failure. Post tracheostomy. Now on trach collar * Anoxic brain injury. No improvement in neurologic status Current Visit: Yes (2) Acute respiratory failure Status: Acute Current Visit: Yes Qualifiers: Respiratory failure complication: hypoxia Qualified Code(s): J96.01 - Acute respiratory failure with hypoxia (3) Cardiac arrest Status: Acute Current Visit: Yes (4) Cellulitis and abscess of face Status: Acute Current Visit: No (5) Cardiomyopathy Status: Chronic Current Visit: No (6) Diabetes Status: Chronic Current Visit: No Qualifiers: Diabetes mellitus type: type 1 Diabetes mellitus complication status: with kidney complications Diabetes mellitus complication detail: with chronic kidney disease Chronic kidney disease stage: stage 4 (severe) Qualified Code (s): E10.22 - Type 1 diabetes mellitus with diabetic chronic kidney disease; N18.4 - Chronic kidney disease, stage 4 (severe) (7) Nephrotic syndrome Status: Chronic Current Visit: No
[2017-04-29] MEDS: INSULIN GLARGINE 100 UNIT/ML SUBCUT SCH (21:06)
[2017-04-29 21:41] LABS: HIT Interpretation Negative (Negative)
[2017-04-30] MEDS: INSULIN REGULAR 100 UNIT/ML SUBCUT SCH ×6 (00:06→20:30)
[2017-04-30] MEDS: PROPOFOL 1,000 MG/100 ML BOTTLE IV SCH (00:06)
[2017-04-30] MEDS: ALBUTEROL/IPRATROPIUM 3 ML NEB RESP TX SCH ×4 (01:51→20:22)
[2017-04-30 02:28] LABS: ABG Base Excess 1.4 MMOL/L (-2.5-2.5); ABG HCO3 24.9 MMOL/L (20-26); ABG Oxygen Saturation 98.8 % (95-100); ABG PCO2 34.7 MM HG (35-48); ABG PH 7.473 (7.35-7.45); ABG PO2 145.8 MM HG (80-95); ABG TCO2 25.9 MMOL/L (23-27); Allen Test Positive; Pt O2 Delivery Device Ventilator
[2017-04-30 05:20] LABS: Magnesium 2.6 MG/DL (1.8-2.4); Phosphorous 3.9 MG/DL (2.5-4.9); Prealbumin 11.9 MG/DL (20-40)
--- NOTE | 2017-04-30 06:40 | Pulmonology Progress Note ---
Pulmonary - PN: Subj Interval history: This 61-year-old man had a cardiac arrest and has finished the [facility] protocol. He remains on the ventilator. He required higher settings of PEEP and FiO2 over the weekend but this morning his PO2 is 264 on 90% oxygen and 15 of PEEP. We can reduce both the FiO2 and PEEP and recheck ABGs this morning. He remains unresponsive. Apparently does have a bit of a gag reflex. Neurology is to review his case and see what they think about prognosis. Family has made him a DO NOT RESUSCITATE. 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 04/14/2017 patient remains unresponsive. Neurologic evaluation has indicated severe hypoxic brain injury. ABGs are improved. Chest x-ray is stable. Will reduce FiO2 and PEEP. Hopefully can start weaning trial soon. His renal function is getting worse with creatinine up to 6.9. Prognosis is grave. Continuing full support at present. 04/15/2017 patient remains unresponsive. ABGs a little better. Will reduce PEEP to 5 cm. Start weaning trials. Renal function getting worse by the day. Chest x-ray looks a little bit wet. Getting saline to try to maintain urine output. Prognosis grave. 04/16/2017 bloody secretions have come from his endotracheal tube. He has a right lower lobe infiltrate. He has grown Klebsiella from his sputum. He is on Zosyn for that already. Remains unresponsive. Prognosis is poor. Creatinine is 7.7. Patient has end-stage cardiomyopathy and is status post cardiac arrest. He has severe hypoxic brain injury. 04/17/17 ABGs look reasonable. Patient tolerating longer CPAP trials. Patient not able to defend his airway. There is some spontaneous movement but no purposeful movement and he does not respond to anything except painful stimulation. 04/18/2017 patient continues to be unresponsive. His eyes deviate to the right. No change in x-rays. ABGs look good. Creatinine 8.5. Continuing with CPAP trials, however patient not able to defend airway at this point. 04/19/2017 patient remains unresponsive. Eyes deviate to the right. He has some twitching in his left arm. I wonder if there is seizure activity. 04/20/2017 patient is doing some CPAP trials although his mental status is not good. He will require tracheostomy. 04/21/2017 patient was having some twitching activity yesterday. He was seen by Dr. Ulloa. Started on seizure medications. Still no signs of neurologic recovery. Patient is to have tracheostomy today. Consider LTAC transfer after that. 04/22/2017 patient had tracheostomy yesterday. Dr. Grajeda called me afterwards, stated that he saw something distally in the lower trachea. Plans were made for bronchoscopy this morning. X-ray this morning shows almost opacification of the left lung. He may have something in his left main bronchus. We plan to do bronchoscopy shortly. His mental status is unchanged. Likely will need to go to LTAC. 04/23/2017 x-ray this morning looks much better. He had some thrombi in the left main bronchus that we removed yesterday with bronchoscopy. Still has patchy bilateral infiltrates. Patient remains unresponsive. He is getting dialysis on mechanical ventilation. Apparently his insurance company has declined transfer to LTAC. Labs pending this morning. Continuing support. 04/24/2017 ABGs look good. Chest x-ray shows good aeration of both sides. He does have some basilar atelectasis. Weaning trials were held yesterday because of bleeding per tracheostomy. This seems better this morning. Patient gets a little heparin with his dialysis. He is on baby aspirin. I will hold the baby aspirin. Status post cardiac arrest with severe hypoxic brain injury. Also has Klebsiella pneumonia. Severe cardiomyopathy. Patient is a DO NOT RESUSCITATE but family wants to continue supportive care with mechanical ventilation and dialysis for now. 04/28/2017 patient tolerating some CPAP. Still no change in mental status. Cultures grew out gram-negative rods. Adding Levaquin to the tobramycin for Klebsiella and Acinetobacter 04/29/2017 patient is tolerating CPAP quite well. Will start on trach collar. Perhaps we can get him to full-time trach collar soon. Then could start looking for placement. 04/30/2017 patient did trach collar yesterday but tired out toward the end of it. We will continue those. He does have some flinching with painful stimulation otherwise remains unresponsive. Exam (Progress Note) - Constitutional Vitals: Period Temp Pulse Resp BP Sys/Post Pulse Ox Last 24 Hr 96.6 F-98.0 F 70-89 13-33 110-154/60-93 97-100 Exam: Patient is unresponsive, except he does flinch to painful stimulus. His eyes continue to deviate and not to follow. Vital signs normal. He does have some respiratory effort. Pupils small irregular and sluggish. Face symmetrical. Orotracheal tube is in place. Neck is supple. Chest reveals scattered rhonchi bilaterally but equal breath sounds today. Heart normal rate rhythm no murmurs. Abdomen soft no masses. Extremities no clubbing cyanosis edema. Results - Labs CBC & BMP: 04/27/17 05:10 04/28/17 04:30 Lab Results: I have reviewed the past 24 hour labs - Diagnostic Findings Procedure: Chest x-ray: image reviewed by me (Right lower lobe infiltrate right pleural effusion. Tracheostomy in good position.) Assessment and Plan (1) Acute respiratory failure Status: Acute Assessment and plan: Patient is on the ventilator 100% oxygen. ABGs look good at present. Will reduce FiO2 to 60%. Certainly cannot start weaning until we see what his mental status is like and that will be after [facility] protocol. 04/13/17 ABGs improved. Will reduce FiO2 and PEEP a little. Prognosis is poor. 04/14/2017 ABGs improved. We can reduce both FiO2 and PEEP. Hopefully one would get his PEEP down to 6 we can start weaning. 04/15/2017 ABGs are better. Reducing PEEP. Start weaning. Mental status will guide us with weaning. 04/16/2017 patient starting to do CPAP. Mental status will guide us where to go later. If we are to continue long-term mechanical ventilatory support and would likely need a tracheostomy in a few days. 04/17/2017 tolerating prolonged CPAP trials. It appears that we will likely be doing a tracheostomy next week if no other changes. I do not think he can defend his airway at this point. 04/18/2017 patient continues to tolerate CPAP, however he is not alert and unable to defend his airway at this point. 04/19/2017 continuing with CPAP trials. ABGs improved. Reduce FiO2. Progressing with CPAP. Likely will need tracheostomy 04/20/2017 patient tolerating CPAP trials but would not be able to defend his airway. Will proceed with ENT consult for tracheostomy. 04/21/2017 ABGs are pending but so far we have been able to relate him fairly easily. He is for tracheostomy today. Reasonable to continue ventilatory support for a couple of weeks. His family is seeing some motion that they are interpreting as purposeful. I have not seen any purposeful motion. He does have some seizure activity. 04/22/2017 patient has done okay with CPAP's prior to the tracheostomy. He required pressors after that. He has opacification of the left long. Hopefully we can clear that up with bronchoscopy. Suspect mucous plugging or thrombi in the left mainstem. 04/23/2017 respiratory failure following cardiac arrest with hypoxic brain injury. Klebsiella pneumonia. Left lung looks better radiographically. Apparently had thrombi in the left main bronchus due either to bleeding from the tracheostomy or pulmonary hemorrhage. CT was negative for pulmonary embolus. He has bibasilar pneumonia and pleural effusions. 04/24/2017 ABGs look good. Resume weaning trials today. 04/28/2017 continuing with weaning trials. Oxygen saturations acceptable. 04/29/2017 patient tolerated CPAP quite well. Start on trach collar. 04/30/2017 ABGs look good. Tolerating trach collar but tired after several hours. Will continue to try to increase times on trach collar. Current Visit: Yes Qualifiers: Respiratory failure complication: hypoxia Qualified Code(s): J96.01 - Acute respiratory failure with hypoxia (2) Cardiac arrest Status: Acute Assessment and plan: Patient had a cardiac arrest last night. He has known severe cardiomyopathy. Did not have any known electrolyte imbalance. Does have chronic renal failure with a creatinine now around 5. He would be at increased risk for a pulmonary embolism. 04/13/17 it appears that he has had significant brain injury. Await neurologic evaluation. 04/14/2017 and apparent severe hypoxic brain injury. See neurology note 04/15/2017 apparent severe hypoxic brain injury. 04/16/2017 continues to exhibit signs of severe hypoxic brain injury. 04/17/2017 severe brain injury. 04/18/2017 again continues to show signs of hypoxic brain injury. Responds to painful stimulus. Does not follow with his eyes. Does not respond to questions. Eyes deviate to the right. 04/19/2017 hypoxic brain injury. Patient is turning his head at times and moving all little but not in response to requests. Does not appear to be purposeful. 04/20/2017 patient has a severe cardiomyopathy. Has severe hypoxic brain injury post cardiac arrest. His family wants us to continue full support. Will need tracheostomy to wean off ventilator. He is not able to defend his airway. 04/21/2017 severe cardiomyopathy hypoxic brain injury. We had considered pulmonary embolus before. He is off anticoagulants now because of some pulmonary hemorrhage. Will obtain a CT PE protocol once he gets the trach done. 04/22/17 hypoxic brain injury. Cardiac arrest related to his cardiomyopathy. 04/23/2017 status post cardiac arrest probably due to his cardiomyopathy with arrhythmias. Hypoxic brain injury persists. 04/24/2017 has severe cardiomyopathy with subsequent arrest. Hypoxic brain injury. Prognosis is poor. 04/28/2017 severe hypoxic brain injury. 04/29/2017 severe hypoxic brain injury due to cardiac arrest from severe cardiomyopathy. Prognosis remains poor 04/30/2017 severe hypoxic brain injury symptoms persist. Current Visit: Yes (3) Chronic renal insufficiency Status: Chronic Assessment and plan: Creatinine has gone up from about 3.7-5 over the last few days. 04/13/17 creatinine up to 5.9 04/14/2017 creatinine is up to 6.9. Will start on some nasogastric feedings and IV fluids. 04/15/2017 creatinine up to 7.5. Defer to nephrology 04/16/2017 creatinine is 7.7. Perhaps it's levelling off. 04/17/2017 creatinine 8.1. Renal following 04/18/2017 creatinine 8.5 now. Bicarb level is 19. Potassium 4.8. He is making urine. 04/19/2017 patient started on dialysis yesterday. Chest x-ray looks a little bit less wet. 04/20/2017 defer to nephrology. He has been started on dialysis and his x-ray is looking a little better. 04/21/2017 continuing dialysis. 04/22/2017 getting dialysis. 04/23/2017 getting dialysis regularly. 04/24/2017 acute renal failure being treated with dialysis. He is due for dialysis today. 04/28/2017 followed by renal with dialysis as required. 04/29/2017 getting dialysis as required 04/30/2017 getting dialysis as required Current Visit: Yes (4) Congestive heart failure Status: Chronic Assessment and plan: Systolic acute on chronic congestive failure due to severe cardiomyopathy. His troponins are not elevated so it does not appear that he had a myocardial infarction as the cause of his arrest last night. 04/13/17 x-ray shows increased interstitial markings consistent with congestive heart failure, but not brigida pulmonary edema. 04/14/2017 does not appear to be in pulmonary edema. 04/15/2017 appears to be developing pulmonary edema. However ABGs are better. IV fluids started yesterday by cardiology. 04/16/2017 this lobe infiltrate. Difficult to tell him what this is heart failure, which may be the Klebsiella pneumonia. He is on Zosyn. 04/17/2017 chest x-ray compatible with mild congestive heart failure. Also getting antibiotics for Klebsiella pneumonia 04/18/2017 severe cardiomyopathy. 04/19/2017 seems to be a little better after dialysis. 04/20/2017 again chest x-ray is a little better. 04/21/2017 improved with dialysis. 04/22/2017 severe cardiomyopathy. Does not appear to be in failure at present. 04/23/2017 severe cardiomyopathy with bilateral pleural effusions. 04/24/2017 severe cardiomyopathy. Bilateral modest pleural effusions and basilar atelectasis. 04/28/2017 severe cardiomyopathy, probably mild failure at this point. 04/29/2017 this appears to be better controlled. 04/30/2017 has a right pleural effusion. May be a little ahead on fluid. Defer to dialysis/renal. Current Visit: Yes Qualifiers: Congestive heart failure type: unspecified congestive heart failure type Congestive heart failure chronicity: acute on chronic Qualified Code(s): I50.9 - Heart failure, unspecified (5) Cellulitis and abscess of face Status: Acute Assessment and plan: He has actually completed full course of treatment for the cellulitis. We need to be careful about vancomycin with his renal failure. Defer to ENT and nephrology on antibiotics and dosing. Current Visit: No (6) Nephrotic syndrome Status: Chronic Assessment and plan: He has peripheral edema. Low serum protein. Increased risk for DVT/PTED. Current Visit: No (7) Pulmonary embolism Status: Ruled-out Assessment and plan: Perfusion lung scan suggestive of pulmonary embolism. Unable to obtain PE protocol CT scan due to renal failure. Patient is on empiric heparin infusion. 04/14/2017 continuing heparin for suspected pulmonary thromboembolic disease 04/15/2017 patient is on heparin. 04/16/2017 his perfusion lung scan was suggestive of pulmonary embolism. We do not have a definitive diagnosis. He has had some pulmonary hemorrhage. I stop the heparin yesterday. Difficult situation. 04/17/2017 this is not a definitive diagnosis which was suspected at the time of his arrest. He had nonspecifically abnormal VQ lung scan. We did not do a CT PE protocol because of the renal failure. His heparin has been held because of bloody pulmonary secretions. Continue to monitor. 04/18/2017 will put on subcu heparin. 04/19/2017 never clear-cut about whether he had an embolus. He had some pulmonary hemorrhage when fully anticoagulated. We now have all subcu heparin prophylactic doses. Now that he is on dialysis we can do a CT PE protocol and will consider that tomorrow. 04/20/2017 this is not a definite diagnosis. We are using DVT prophylaxis at present. It will be worthwhile at some point to get CT PE protocol now that he is on dialysis. 04/21/2017 this is a questionable diagnosis. Plan CT PE protocol either later today or tomorrow. 04/22/2017 again need to do a CT PE protocol. Likely will do that later today. 04/23/2017 pulmonary embolus has been ruled out. Current Visit: Yes
--- NOTE | 2017-04-30 06:41 | XRay Report ---
XR chest 1V portable Indication: Intubation Comparison: Chest x-ray 04/28/2017 Technique: Portable AP chest was performed. Findings: Multiple tubes and medical support devices appear stable. Bibasilar parenchymal opacities demonstrate little change. Upper lungs are clear. Chest is otherwise stable. Impression: 1. No adverse interval change in the chest. Bibasilar parenchymal opacities and/or dependent pleural fluid are suggested. The parenchymal opacities may partly from atelectasis. 04/30/2017 6:37 AM PROCEDURE INTERPRETED AT [facility] DEPARTMENT OF RADIOLOGY Final Report Signed by: Dr. Anderson Funk
[2017-04-30] MEDS: TOBRAMYCIN 80 MG/2 ML VIAL RESP TX SCH ×2 (06:58→20:22)
[2017-04-30] MEDS: FUROSEMIDE 40 MG/4 ML VIAL IV SCH ×2 (08:21→16:12)
[2017-04-30] MEDS: METOPROLOL TARTRATE 25 MG TABLET PO SCH ×2 (08:30→21:29)
[2017-04-30] MEDS: LANSOPRAZOLE ODT 30 MG TABLET PO SCH (08:31)
[2017-04-30] MEDS: FLUCONAZOLE 40 MG/ML 35 ML/BOTTLE PO SCH (08:34)
[2017-04-30] MEDS: BACITRACIN OINT 0.9 GM PACK TOP SCH (08:34)
[2017-04-30] MEDS: DESITIN 4OZ/NYSTATIN 15 GRAM MIXTURE PASTE TOP SCH ×2 (08:35→21:30)
[2017-04-30] MEDS: MINERAL OIL/PETROLATUM OPH OINT 3.5 GM TUBE BOTH EYES SCH ×3 (08:35→21:29)
[2017-04-30] MEDS: metOLazone 5 MG TABLET PO SCH (08:35)
[2017-04-30] MEDS: levETIRAcetam LIQUID 100 MG/ML 30 ML/BOTTLE PO SCH ×2 (08:35→21:28)
[2017-04-30 09:36] LABS: Calcium 7.2 MG/DL (8.5-10.1); Osmolality,Calculated 276.8 MOS/KG (273-304); Potassium 3.3 MMOL/L (3.5-5.1)
--- NOTE | 2017-04-30 10:23 | Hospitalist Progress Note ---
Assessment and Plan (1) Acute respiratory failure Status: Acute Assessment and plan: 1)resp failure due to neurological problems- continue trach collar today. On antibiotics to cover klebsiella-- Zosyn, tobra, and fluconazole also for bronch cultures from 04/22. Discuss duration fo antibiotics with Dr Bhakta- 7-10 days? can go to NH when tolerated trach collar. 2)CKD- Dr Marr monitoring daily labs for timing HD. 3)anemia due to bleeding from trach which has mostly stopped though occ some fresh blood suctioned from lungs per nurse. 4)cardiopulmonary arrrest- led to resp failure and anoxic brain injury. on meds for seizure. remains unresponsive other than flinching occasionally to deep pain. 5)prognosis is very poor- family made him DNR but do not want to withdraw vent per reports of prior conversations with them. His niece is seeking conservatorship. Current Visit: Yes Qualifiers: Respiratory failure complication: hypoxia Qualified Code(s): J96.01 - Acute respiratory failure with hypoxia (2) Chronic kidney disease, stage IV (severe) Status: Chronic Current Visit: Yes (3) Anoxic brain injury Status: Acute Current Visit: Yes (4) Ventilator dependence Status: Acute Current Visit: Yes (5) Seizure disorder Status: Acute Current Visit: Yes (6) Coagulopathy Status: Acute Current Visit: Yes (7) Anemia due to acute blood loss Status: Acute Current Visit: Yes (8) Pneumonia due to Klebsiella pneumoniae Status: Acute Current Visit: Yes Hospitalist: Subjective Interval history: Mr Mantilla's condition is mostly unchanged though he did tolerate trach collar for over 18hours. Exam - Constitutional Vitals: Period Temp Pulse Resp BP Sys/Post Pulse Ox Last 24 Hr 96.6 F-98.0 F 54-84 14-33 110-154/60-93 99-100 General appearance: normal weight, no acute distress - Expanded ENT Exam Mouth exam: Present: moist Throat exam: Present: normal inspection - Respiratory Respiratory exam: Present: clear to auscultation bilaterally (a few rales on right) - Cardiovascular Cardiovascular exam: Present: regular rate and rhythm - GI/Abdominal GI/Abdominal exam: Present: normal bowel sounds, soft. Absent: tenderness - Extremities Exam Extremities exam: Absent: edema Results - Labs CBC & BMP: 04/27/17 05:10 04/30/17 08:40 Lab Results: I have reviewed the past 24 hour labs
[2017-04-30] MEDS ORDERED: POTASSIUM CHLORIDE 20 MEQ/15 ML UDCUP PER TUBE ONE (11:00)
--- NOTE | 2017-04-30 13:14 | Nephrology Progress Note ---
Nephrology - PN: Subj Interval history: He remains unresponsive. He is on trach collar Exam (PN)-Nephrology - Vital Signs Vital signs: Period Temp Pulse Resp BP Sys/Post Pulse Ox Last 24 Hr 96.6 F-98.0 F 28-84 14-30 114-136/61-77 99-100 Exam: Gen.: Unresponsive ENT: Pupils equal round reactive to light. EOMs intact. Mucous membranes moist. Neck: Supple. No JVD or bruit. Cardiovascular: Regular rate and rhythm. No murmur rub or gallop Lungs: Clear Abdomen: Soft. Nontender. Positive bowel sounds. No organomegaly Extremities: Trace edema - Lab 04/27/17 05:10 04/30/17 08:40 Most recent lab results ABG pH 7.473 (7.35-7.45) H 04/30/17 02:10 ABG pCO2 34.7 MM HG (35-48) L 04/30/17 02:10 ABG pO2 145.8 MM HG (80-95) H 04/30/17 02:10 ABG HCO3 24.9 MMOL/L (20-26) 04/30/17 02:10 ABG O2 Saturation 98.8 % (95-100) 04/30/17 02:10 Calcium 7.2 MG/DL (8.5-10.1) L 04/30/17 08:40 Phosphorus 3.9 MG/DL (2.5-4.9) 04/30/17 04:00 Magnesium 2.6 MG/DL (1.8-2.4) H 04/30/17 04:00 Assessment and Plan (1) Chronic kidney disease, stage IV (severe) Status: Chronic Assessment and plan: 61-year-old man admitted with: * CRF stage IV. Baseline creatinine mid threes * ARF on CRF. Dialyzed Thursday. Urine output has increased. No dialysis planned today. Reevaluate tomorrow * Nephrotic syndrome * Diabetes mellitus * Cardiomyopathy * Cardiac arrest. * Ventilatory failure. Post tracheostomy. Now on trach collar * Anoxic brain injury. No improvement in neurologic status Current Visit: Yes (2) Acute respiratory failure Status: Acute Current Visit: Yes Qualifiers: Respiratory failure complication: hypoxia Qualified Code(s): J96.01 - Acute respiratory failure with hypoxia (3) Cardiac arrest Status: Acute Current Visit: Yes (4) Cellulitis and abscess of face Status: Acute Current Visit: No (5) Cardiomyopathy Status: Chronic Current Visit: No (6) Diabetes Status: Chronic Current Visit: No Qualifiers: Diabetes mellitus type: type 1 Diabetes mellitus complication status: with kidney complications Diabetes mellitus complication detail: with chronic kidney disease Chronic kidney disease stage: stage 4 (severe) Qualified Code (s): E10.22 - Type 1 diabetes mellitus with diabetic chronic kidney disease; N18.4 - Chronic kidney disease, stage 4 (severe) (7) Nephrotic syndrome Status: Chronic Current Visit: No
[2017-04-30] MEDS: LEVOFLOXACIN INJ 250 MG in PREMIX 1 EACH IV SCH (15:30)
[2017-04-30] MEDS: INSULIN GLARGINE 100 UNIT/ML SUBCUT SCH (21:29)
[2017-05-01] MEDS: PROPOFOL 1,000 MG/100 ML BOTTLE IV SCH (00:02)
[2017-05-01] MEDS: INSULIN REGULAR 100 UNIT/ML SUBCUT SCH ×6 (00:07→20:16)
[2017-05-01] MEDS: ALBUTEROL/IPRATROPIUM 3 ML NEB RESP TX SCH ×5 (01:39→23:49)
[2017-05-01 03:26] LABS: Allen Test Positive
[2017-05-01 03:27] LABS: ABG Base Excess 0.5 MMOL/L (-2.5-2.5); ABG HCO3 24.9 MMOL/L (20-26); ABG Oxygen Saturation 99.1 % (95-100); ABG PCO2 35.5 MM HG (35-48); ABG PH 7.444 (7.35-7.45); ABG TCO2 22.5 MMOL/L (23-27)
[2017-05-01 05:29] LABS: Basophils % 0.5 % (0.0-0.8); Eosinophils # 0.3 10*3/uL (0.0-0.87); Eosinophils % 4.4 % (0.00-10.9); Hematocrit 24.3 VOL% (42.0-52.0); Hemoglobin 8.4 GM/DL (14.0-18.0); Immature Granulocytes % 0.3 %; Immature Granulocytes Absolute 0.02 #; Lymphocytes # 0.9 10*3/uL (1.4-4.0); Lymphocytes % 13.6 % (21.2-54.2); Mean Corpuscular HGB Conc 34.6 GM/DL (32-36); Mean Corpuscular Hemoglobin 30 PG (27-34); Mean Corpuscular Volume 86.8 FL (87-102); Mean Platelet Volume 11.6 FL (9.6-12.0); Monocytes # 0.4 10*3/uL (0.11-0.8); Neutrophils # 4.8 10*3/uL (1.4-7.4); Neutrophils % 75.2 % (38.7-73.9); Platelet Count 162 T/CUMM (130-400); Red Cell Distribution Width 16.7 % (9.3-17.3); White Blood Count 6.3 T/CUMM (4-12)
[2017-05-01 06:06] LABS: Calcium 7.3 MG/DL (8.5-10.1); Osmolality,Calculated 273.7 MOS/KG (273-304); Potassium 3.6 MMOL/L (3.5-5.1)
--- NOTE | 2017-05-01 06:12 | XRay Report ---
XR chest 1V portable Indication: Intubation. Comparison: Chest x-ray 04/30/2017. Technique: Portable AP chest was performed. Findings: Tracheostomy tube is stable. Right-sided IJ catheter terminates within the superior vena cava. Minimal improvement in visualization of the right hemidiaphragm is noted. Bibasilar parenchymal opacities remain present with suggestive total atelectasis of left lower lobe as well as small bilateral pleural effusions. Bones and soft tissues appear stable. Impression: 1. There may be minimal improvement in aeration of the right lung base. 2. Persistent atelectasis of the left lower lobe. 3. Small bilateral pleural effusions. 05/01/2017 6:09 AM PROCEDURE INTERPRETED AT [facility] DEPARTMENT OF RADIOLOGY Final Report Signed by: Dr. Anderson Funk
--- NOTE | 2017-05-01 06:28 | Pulmonology Progress Note ---
Pulmonary - PN: Subj Interval history: This 61-year-old man had a cardiac arrest and has finished the [facility] protocol. He remains on the ventilator. He required higher settings of PEEP and FiO2 over the weekend but this morning his PO2 is 264 on 90% oxygen and 15 of PEEP. We can reduce both the FiO2 and PEEP and recheck ABGs this morning. He remains unresponsive. Apparently does have a bit of a gag reflex. Neurology is to review his case and see what they think about prognosis. Family has made him a DO NOT RESUSCITATE. 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 04/14/2017 patient remains unresponsive. Neurologic evaluation has indicated severe hypoxic brain injury. ABGs are improved. Chest x-ray is stable. Will reduce FiO2 and PEEP. Hopefully can start weaning trial soon. His renal function is getting worse with creatinine up to 6.9. Prognosis is grave. Continuing full support at present. 04/15/2017 patient remains unresponsive. ABGs a little better. Will reduce PEEP to 5 cm. Start weaning trials. Renal function getting worse by the day. Chest x-ray looks a little bit wet. Getting saline to try to maintain urine output. Prognosis grave. 04/16/2017 bloody secretions have come from his endotracheal tube. He has a right lower lobe infiltrate. He has grown Klebsiella from his sputum. He is on Zosyn for that already. Remains unresponsive. Prognosis is poor. Creatinine is 7.7. Patient has end-stage cardiomyopathy and is status post cardiac arrest. He has severe hypoxic brain injury. 04/17/17 ABGs look reasonable. Patient tolerating longer CPAP trials. Patient not able to defend his airway. There is some spontaneous movement but no purposeful movement and he does not respond to anything except painful stimulation. 04/18/2017 patient continues to be unresponsive. His eyes deviate to the right. No change in x-rays. ABGs look good. Creatinine 8.5. Continuing with CPAP trials, however patient not able to defend airway at this point. 04/19/2017 patient remains unresponsive. Eyes deviate to the right. He has some twitching in his left arm. I wonder if there is seizure activity. 04/20/2017 patient is doing some CPAP trials although his mental status is not good. He will require tracheostomy. 04/21/2017 patient was having some twitching activity yesterday. He was seen by Dr. Ulloa. Started on seizure medications. Still no signs of neurologic recovery. Patient is to have tracheostomy today. Consider LTAC transfer after that. 04/22/2017 patient had tracheostomy yesterday. Dr. Grajeda called me afterwards, stated that he saw something distally in the lower trachea. Plans were made for bronchoscopy this morning. X-ray this morning shows almost opacification of the left lung. He may have something in his left main bronchus. We plan to do bronchoscopy shortly. His mental status is unchanged. Likely will need to go to LTAC. 04/23/2017 x-ray this morning looks much better. He had some thrombi in the left main bronchus that we removed yesterday with bronchoscopy. Still has patchy bilateral infiltrates. Patient remains unresponsive. He is getting dialysis on mechanical ventilation. Apparently his insurance company has declined transfer to LTAC. Labs pending this morning. Continuing support. 04/24/2017 ABGs look good. Chest x-ray shows good aeration of both sides. He does have some basilar atelectasis. Weaning trials were held yesterday because of bleeding per tracheostomy. This seems better this morning. Patient gets a little heparin with his dialysis. He is on baby aspirin. I will hold the baby aspirin. Status post cardiac arrest with severe hypoxic brain injury. Also has Klebsiella pneumonia. Severe cardiomyopathy. Patient is a DO NOT RESUSCITATE but family wants to continue supportive care with mechanical ventilation and dialysis for now. 04/28/2017 patient tolerating some CPAP. Still no change in mental status. Cultures grew out gram-negative rods. Adding Levaquin to the tobramycin for Klebsiella and Acinetobacter 04/29/2017 patient is tolerating CPAP quite well. Will start on trach collar. Perhaps we can get him to full-time trach collar soon. Then could start looking for placement. 04/30/2017 patient did trach collar yesterday but tired out toward the end of it. We will continue those. He does have some flinching with painful stimulation otherwise remains unresponsive. 05/01/17 patient has been on trach collar for 24 hours now. Seems to be doing well with that. ABGs look good. Chest x-ray shows some mild bibasilar atelectasis. Left lung well expanded. Patient is afebrile. He will turn his head a bit to painful stimulus. Otherwise not responsive. Patient can be moved to the floor. May want to consider a long-term mechanical ventilation service such as [facility] or the new one in [place]. He has been turned down as far as coverage for an LTAC. Exam (Progress Note) - Constitutional Vitals: Period Temp Pulse Resp BP Sys/Post Pulse Ox Last 24 Hr 96.9 F-97.9 F 28-72 12-29 104-136/53-76 99-100 Exam: Patient is unresponsive, except he does flinch to painful stimulus. He turned his head toward me when I placed my stethoscope on his left chest. Vital signs normal. He does have some respiratory effort and a cough reflex. Pupils small irregular and sluggish. Face symmetrical. Tracheostomy is in place. Neck is supple. Chest reveals scattered rhonchi bilaterally but equal breath sounds today. Heart normal rate rhythm no murmurs. Abdomen soft no masses. Extremities no clubbing cyanosis edema. Results - Labs CBC & BMP: 05/01/17 03:55 05/01/17 03:55 Lab Results: I have reviewed the past 24 hour labs - Diagnostic Findings Procedure: Chest x-ray: image reviewed by me (Bibasilar atelectasis, a little better than before.) Assessment and Plan (1) Acute respiratory failure Status: Acute Assessment and plan: Patient is on the ventilator 100% oxygen. ABGs look good at present. Will reduce FiO2 to 60%. Certainly cannot start weaning until we see what his mental status is like and that will be after [facility] protocol. 04/13/17 ABGs improved. Will reduce FiO2 and PEEP a little. Prognosis is poor. 04/14/2017 ABGs improved. We can reduce both FiO2 and PEEP. Hopefully one would get his PEEP down to 6 we can start weaning. 04/15/2017 ABGs are better. Reducing PEEP. Start weaning. Mental status will guide us with weaning. 04/16/2017 patient starting to do CPAP. Mental status will guide us where to go later. If we are to continue long-term mechanical ventilatory support and would likely need a tracheostomy in a few days. 04/17/2017 tolerating prolonged CPAP trials. It appears that we will likely be doing a tracheostomy next week if no other changes. I do not think he can defend his airway at this point. 04/18/2017 patient continues to tolerate CPAP, however he is not alert and unable to defend his airway at this point. 04/19/2017 continuing with CPAP trials. ABGs improved. Reduce FiO2. Progressing with CPAP. Likely will need tracheostomy 04/20/2017 patient tolerating CPAP trials but would not be able to defend his airway. Will proceed with ENT consult for tracheostomy. 04/21/2017 ABGs are pending but so far we have been able to relate him fairly easily. He is for tracheostomy today. Reasonable to continue ventilatory support for a couple of weeks. His family is seeing some motion that they are interpreting as purposeful. I have not seen any purposeful motion. He does have some seizure activity. 04/22/2017 patient has done okay with CPAP's prior to the tracheostomy. He required pressors after that. He has opacification of the left long. Hopefully we can clear that up with bronchoscopy. Suspect mucous plugging or thrombi in the left mainstem. 04/23/2017 respiratory failure following cardiac arrest with hypoxic brain injury. Klebsiella pneumonia. Left lung looks better radiographically. Apparently had thrombi in the left main bronchus due either to bleeding from the tracheostomy or pulmonary hemorrhage. CT was negative for pulmonary embolus. He has bibasilar pneumonia and pleural effusions. 04/24/2017 ABGs look good. Resume weaning trials today. 04/28/2017 continuing with weaning trials. Oxygen saturations acceptable. 04/29/2017 patient tolerated CPAP quite well. Start on trach collar. 04/30/2017 ABGs look good. Tolerating trach collar but tired after several hours. Will continue to try to increase times on trach collar. 05/01/17 patient tolerating trach collar for 24 hours. ABGs look good on 35% trach collar. Current Visit: Yes Qualifiers: Respiratory failure complication: hypoxia Qualified Code(s): J96.01 - Acute respiratory failure with hypoxia (2) Cardiac arrest Status: Acute Assessment and plan: Patient had a cardiac arrest last night. He has known severe cardiomyopathy. Did not have any known electrolyte imbalance. Does have chronic renal failure with a creatinine now around 5. He would be at increased risk for a pulmonary embolism. 04/13/17 it appears that he has had significant brain injury. Await neurologic evaluation. 04/14/2017 and apparent severe hypoxic brain injury. See neurology note 04/15/2017 apparent severe hypoxic brain injury. 04/16/2017 continues to exhibit signs of severe hypoxic brain injury. 04/17/2017 severe brain injury. 04/18/2017 again continues to show signs of hypoxic brain injury. Responds to painful stimulus. Does not follow with his eyes. Does not respond to questions. Eyes deviate to the right. 04/19/2017 hypoxic brain injury. Patient is turning his head at times and moving all little but not in response to requests. Does not appear to be purposeful. 04/20/2017 patient has a severe cardiomyopathy. Has severe hypoxic brain injury post cardiac arrest. His family wants us to continue full support. Will need tracheostomy to wean off ventilator. He is not able to defend his airway. 04/21/2017 severe cardiomyopathy hypoxic brain injury. We had considered pulmonary embolus before. He is off anticoagulants now because of some pulmonary hemorrhage. Will obtain a CT PE protocol once he gets the trach done. 04/22/17 hypoxic brain injury. Cardiac arrest related to his cardiomyopathy. 04/23/2017 status post cardiac arrest probably due to his cardiomyopathy with arrhythmias. Hypoxic brain injury persists. 04/24/2017 has severe cardiomyopathy with subsequent arrest. Hypoxic brain injury. Prognosis is poor. 04/28/2017 severe hypoxic brain injury. 04/29/2017 severe hypoxic brain injury due to cardiac arrest from severe cardiomyopathy. Prognosis remains poor 04/30/2017 severe hypoxic brain injury symptoms persist. 05/01/17 again has severe hypoxic brain injury. Current Visit: Yes (3) Chronic renal insufficiency Status: Chronic Assessment and plan: Creatinine has gone up from about 3.7-5 over the last few days. 04/13/17 creatinine up to 5.9 04/14/2017 creatinine is up to 6.9. Will start on some nasogastric feedings and IV fluids. 04/15/2017 creatinine up to 7.5. Defer to nephrology 04/16/2017 creatinine is 7.7. Perhaps it's levelling off. 04/17/2017 creatinine 8.1. Renal following 04/18/2017 creatinine 8.5 now. Bicarb level is 19. Potassium 4.8. He is making urine. 04/19/2017 patient started on dialysis yesterday. Chest x-ray looks a little bit less wet. 04/20/2017 defer to nephrology. He has been started on dialysis and his x-ray is looking a little better. 04/21/2017 continuing dialysis. 04/22/2017 getting dialysis. 04/23/2017 getting dialysis regularly. 04/24/2017 acute renal failure being treated with dialysis. He is due for dialysis today. 04/28/2017 followed by renal with dialysis as required. 04/29/2017 getting dialysis as required 04/30/2017 getting dialysis as required 05/01/17 continuing with dialysis. Current Visit: Yes (4) Congestive heart failure Status: Chronic Assessment and plan: Systolic acute on chronic congestive failure due to severe cardiomyopathy. His troponins are not elevated so it does not appear that he had a myocardial infarction as the cause of his arrest last night. 04/13/17 x-ray shows increased interstitial markings consistent with congestive heart failure, but not brigida pulmonary edema. 04/14/2017 does not appear to be in pulmonary edema. 04/15/2017 appears to be developing pulmonary edema. However ABGs are better. IV fluids started yesterday by cardiology. 04/16/2017 this lobe infiltrate. Difficult to tell him what this is heart failure, which may be the Klebsiella pneumonia. He is on Zosyn. 04/17/2017 chest x-ray compatible with mild congestive heart failure. Also getting antibiotics for Klebsiella pneumonia 04/18/2017 severe cardiomyopathy. 04/19/2017 seems to be a little better after dialysis. 04/20/2017 again chest x-ray is a little better. 04/21/2017 improved with dialysis. 04/22/2017 severe cardiomyopathy. Does not appear to be in failure at present. 04/23/2017 severe cardiomyopathy with bilateral pleural effusions. 04/24/2017 severe cardiomyopathy. Bilateral modest pleural effusions and basilar atelectasis. 04/28/2017 severe cardiomyopathy, probably mild failure at this point. 04/29/2017 this appears to be better controlled. 04/30/2017 has a right pleural effusion. May be a little ahead on fluid. Defer to dialysis/renal. 05/01/17 has a cardiomyopathy. Congestive heart failure symptoms primarily controlled by dialysis. Current Visit: Yes Qualifiers: Congestive heart failure type: unspecified congestive heart failure type Congestive heart failure chronicity: acute on chronic Qualified Code(s): I50.9 - Heart failure, unspecified (5) Cellulitis and abscess of face Status: Acute Assessment and plan: He has actually completed full course of treatment for the cellulitis. We need to be careful about vancomycin with his renal failure. Defer to ENT and nephrology on antibiotics and dosing. Current Visit: No (6) Nephrotic syndrome Status: Chronic Assessment and plan: He has peripheral edema. Low serum protein. Increased risk for DVT/PTED. Current Visit: No (7) Pulmonary embolism Status: Ruled-out Assessment and plan: Perfusion lung scan suggestive of pulmonary embolism. Unable to obtain PE protocol CT scan due to renal failure. Patient is on empiric heparin infusion. 04/14/2017 continuing heparin for suspected pulmonary thromboembolic disease 04/15/2017 patient is on heparin. 04/16/2017 his perfusion lung scan was suggestive of pulmonary embolism. We do not have a definitive diagnosis. He has had some pulmonary hemorrhage. I stop the heparin yesterday. Difficult situation. 04/17/2017 this is not a definitive diagnosis which was suspected at the time of his arrest. He had nonspecifically abnormal VQ lung scan. We did not do a CT PE protocol because of the renal failure. His heparin has been held because of bloody pulmonary secretions. Continue to monitor. 04/18/2017 will put on subcu heparin. 04/19/2017 never clear-cut about whether he had an embolus. He had some pulmonary hemorrhage when fully anticoagulated. We now have all subcu heparin prophylactic doses. Now that he is on dialysis we can do a CT PE protocol and will consider that tomorrow. 04/20/2017 this is not a definite diagnosis. We are using DVT prophylaxis at present. It will be worthwhile at some point to get CT PE protocol now that he is on dialysis. 04/21/2017 this is a questionable diagnosis. Plan CT PE protocol either later today or tomorrow. 04/22/2017 again need to do a CT PE protocol. Likely will do that later today. 04/23/2017 pulmonary embolus has been ruled out. 05/01/17 patient does NOT have a pulmonary embolism. Current Visit: Yes
[2017-05-01] MEDS: FUROSEMIDE 40 MG/4 ML VIAL IV SCH ×2 (08:00→16:00)
[2017-05-01] MEDS: TOBRAMYCIN 80 MG/2 ML VIAL RESP TX SCH ×2 (08:07→19:37)
[2017-05-01] MEDS: DESITIN 4OZ/NYSTATIN 15 GRAM MIXTURE PASTE TOP SCH ×2 (08:45→21:47)
[2017-05-01] MEDS: metOLazone 5 MG TABLET PO SCH (09:00)
[2017-05-01] MEDS: FLUCONAZOLE 40 MG/ML 35 ML/BOTTLE PO SCH (09:00)
[2017-05-01] MEDS: MINERAL OIL/PETROLATUM OPH OINT 3.5 GM TUBE BOTH EYES SCH ×3 (09:00→21:46)
[2017-05-01] MEDS: METOPROLOL TARTRATE 25 MG TABLET PO SCH ×2 (09:00→21:46)
[2017-05-01] MEDS: LANSOPRAZOLE ODT 30 MG TABLET PO SCH (09:00)
[2017-05-01] MEDS: levETIRAcetam LIQUID 100 MG/ML 30 ML/BOTTLE PO SCH ×2 (09:00→21:47)
[2017-05-01] MEDS: BACITRACIN OINT 0.9 GM PACK TOP SCH (09:15)
--- NOTE | 2017-05-01 09:48 | Hospitalist Progress Note ---
Assessment and Plan (1) Acute respiratory failure Status: Acute Assessment and plan: 1)resp failure due to neurological problems- continue trach collar today. On antibiotics to cover klebsiella-- Zosyn, tobra, and fluconazole also for bronch cultures from 04/22. Discuss duration of antibiotics with Dr Bhakta- 7-10 days? CM pursuing referral to chronic vent unit. 2)CKD- Dr Marr monitoring daily labs for timing HD. Has not required dialysis for several days. 3)anemia due to bleeding from trach which has stopped though occ some fresh blood and clots suctioned from lungs per nurse. 4)cardiopulmonary arrrest- led to resp failure and anoxic brain injury. on meds for seizure. remains unresponsive other than flinching occasionally to deep pain. 5)prognosis is very poor- family made him DNR but do not want to withdraw vent per reports of prior conversations with them. His niece is seeking conservatorship. Current Visit: Yes Qualifiers: Respiratory failure complication: hypoxia Qualified Code(s): J96.01 - Acute respiratory failure with hypoxia (2) Chronic kidney disease, stage IV (severe) Status: Chronic Current Visit: Yes (3) Anoxic brain injury Status: Acute Current Visit: Yes (4) Ventilator dependence Status: Acute Current Visit: Yes (5) Seizure disorder Status: Acute Current Visit: Yes (6) Coagulopathy Status: Acute Current Visit: Yes (7) Anemia due to acute blood loss Status: Acute Current Visit: Yes (8) Pneumonia due to Klebsiella pneumoniae Status: Acute Current Visit: Yes Hospitalist: Subjective Interval history: Mr Mantilla is holding his own with trach collar, but occasionally needs deep suctioning urgently when he closes the trach off. Dr Bhakta and I talked to coordinate care and agreed he should stay in unit a few days more so he can get the suctioning he needs. He also recommended referral to chronic vent unit at [facility] and I have talked to Summer the who will make the referral. Exam - Constitutional Vitals: Period Temp Pulse Resp BP Sys/Post Pulse Ox Last 24 Hr 96.9 F-97.0 F 28-64 12-29 104-136/53-76 99-100 General appearance: normal weight, no acute distress - Eye Eye exam: Absent: EOMI, scleral icterus Pupils: Absent: ASHLY - Expanded ENT Exam Mouth exam: Present: moist - Respiratory Respiratory exam: Present: clear to auscultation bilaterally - Cardiovascular Cardiovascular exam: Present: regular rate and rhythm - GI/Abdominal GI/Abdominal exam: Present: normal bowel sounds, soft. Absent: tenderness - Extremities Exam Extremities exam: Absent: edema Results - Labs CBC & BMP: 05/01/17 03:55 05/01/17 03:55 Lab Results: I have reviewed the past 24 hour labs
--- NOTE | 2017-05-01 12:13 | Nephrology Progress Note ---
Nephrology - PN: Subj Interval history: No change in neurologic status. He is on trach collar. Exam (PN)-Nephrology - Vital Signs Vital signs: Period Temp Pulse Resp BP Sys/Post Pulse Ox Last 24 Hr 86 F-97.0 F 28-64 12-29 104-140/53-76 99-100 Exam: Gen.: Not responsive ENT: Tracheostomy present Neck: Supple. No JVD or bruit. Cardiovascular: Regular rate and rhythm. No murmur rub or gallop Lungs: Clear Abdomen: Soft. Nontender. Positive bowel sounds. No organomegaly Extremities: Trace edema - Lab 05/01/17 03:55 05/01/17 03:55 Most recent lab results ABG pH 7.444 (7.35-7.45) 05/01/17 03:15 ABG pCO2 35.5 MM HG (35-48) 05/01/17 03:15 ABG pO2 139.0 MM HG (80-95) H 05/01/17 03:15 ABG HCO3 24.9 MMOL/L (20-26) 05/01/17 03:15 ABG O2 Saturation 99.1 % (95-100) 05/01/17 03:15 Calcium 7.3 MG/DL (8.5-10.1) L 05/01/17 03:55 Phosphorus 3.9 MG/DL (2.5-4.9) 04/30/17 04:00 Magnesium 2.6 MG/DL (1.8-2.4) H 04/30/17 04:00 Assessment and Plan (1) Chronic kidney disease, stage IV (severe) Status: Chronic Assessment and plan: 61-year-old man admitted with: * CRF stage IV. Baseline creatinine mid threes * ARF on CRF. Last dialysis was 04/28/2017. Urine output nearly 2 L past 24 hours. Creatinine stable at 4 the past 2 days. This is near his baseline prior to arrest. No dialysis required today. * Nephrotic syndrome * Diabetes mellitus * Cardiomyopathy * Cardiac arrest. * Ventilatory failure. Post tracheostomy. Now on trach collar * Anoxic brain injury. No improvement in neurologic status Current Visit: Yes (2) Acute respiratory failure Status: Acute Current Visit: Yes Qualifiers: Respiratory failure complication: hypoxia Qualified Code(s): J96.01 - Acute respiratory failure with hypoxia (3) Cardiac arrest Status: Acute Current Visit: Yes (4) Cellulitis and abscess of face Status: Acute Current Visit: No (5) Cardiomyopathy Status: Chronic Current Visit: No (6) Diabetes Status: Chronic Current Visit: No Qualifiers: Diabetes mellitus type: type 1 Diabetes mellitus complication status: with kidney complications Diabetes mellitus complication detail: with chronic kidney disease Chronic kidney disease stage: stage 4 (severe) Qualified Code (s): E10.22 - Type 1 diabetes mellitus with diabetic chronic kidney disease; N18.4 - Chronic kidney disease, stage 4 (severe) (7) Nephrotic syndrome Status: Chronic Current Visit: No
[2017-05-01] MEDS: INSULIN GLARGINE 100 UNIT/ML SUBCUT SCH (21:48)
[2017-05-02] MEDS: INSULIN REGULAR 100 UNIT/ML SUBCUT SCH ×6 (00:03→22:24)
[2017-05-02 03:48] LABS: ABG Base Excess -0.6 MMOL/L (-2.5-2.5); ABG HCO3 23.9 MMOL/L (20-26); ABG PCO2 36.3 MM HG (35-48); ABG PO2 96.3 MM HG (80-95); ABG TCO2 21.8 MMOL/L (23-27); Allen Test Positive
[2017-05-02 04:53] LABS: Basophils % 0.4 % (0.0-0.8); Eosinophils # 0.3 10*3/uL (0.0-0.87); Eosinophils % 3.3 % (0.00-10.9); Hematocrit 25.7 VOL% (42.0-52.0); Hemoglobin 8.9 GM/DL (14.0-18.0); Immature Granulocytes % 0.4 %; Immature Granulocytes Absolute 0.03 #; Lymphocytes # 0.8 10*3/uL (1.4-4.0); Lymphocytes % 10.3 % (21.2-54.2); Mean Corpuscular HGB Conc 34.6 GM/DL (32-36); Mean Corpuscular Hemoglobin 30 PG (27-34); Mean Corpuscular Volume 85.7 FL (87-102); Mean Platelet Volume 10.8 FL (9.6-12.0); Monocytes # 0.3 10*3/uL (0.11-0.8); Monocytes % 3.9 % (1.7-12.7); Neutrophils # 6.2 10*3/uL (1.4-7.4); Neutrophils % 81.7 % (38.7-73.9); Platelet Count 177 T/CUMM (130-400); Red Cell Distribution Width 16.7 % (9.3-17.3); White Blood Count 7.6 T/CUMM (4-12)
[2017-05-02 05:26] LABS: Calcium 7.4 MG/DL (8.5-10.1); Magnesium 2.5 MG/DL (1.8-2.4); Osmolality,Calculated 277.1 MOS/KG (273-304); Potassium 3.4 MMOL/L (3.5-5.1)
[2017-05-02] MEDS: PROPOFOL 1,000 MG/100 ML BOTTLE IV SCH (07:00)
[2017-05-02] MEDS: ALBUTEROL/IPRATROPIUM 3 ML NEB RESP TX SCH ×3 (07:37→22:20)
[2017-05-02] MEDS: TOBRAMYCIN 80 MG/2 ML VIAL RESP TX SCH (07:37)
[2017-05-02] MEDS: FUROSEMIDE 40 MG/4 ML VIAL IV SCH ×2 (08:00→16:30)
[2017-05-02] MEDS: MINERAL OIL/PETROLATUM OPH OINT 3.5 GM TUBE BOTH EYES SCH ×3 (09:00→23:32)
[2017-05-02] MEDS: METOPROLOL TARTRATE 25 MG TABLET PO SCH ×2 (09:00→23:32)
[2017-05-02] MEDS: metOLazone 5 MG TABLET PO SCH (09:00)
[2017-05-02] MEDS: FLUCONAZOLE 40 MG/ML 35 ML/BOTTLE PO SCH (09:00)
[2017-05-02] MEDS: levETIRAcetam LIQUID 100 MG/ML 30 ML/BOTTLE PO SCH ×2 (09:00→23:33)
[2017-05-02] MEDS: LANSOPRAZOLE ODT 30 MG TABLET PO SCH (09:00)
--- NOTE | 2017-05-02 10:13 | Pulmonology Progress Note ---
Pulmonary - PN: Subj Interval history: Is a 61-year-old male whom I am seeing for Dr. jeniffer Bhakta. This patient had a cardiac arrest. He has an end-stage cardiomyopathy. He has had a severe hypoxic brain injury. He will occasionally look around. Family feels like he is improving but this is hard to discern. He is on a trach collar full- time. He is a DO NOT RESUSCITATE. He still requires some suctioning. Chest x-ray shows cardiomegaly and bilateral pleural effusions there are increased interstitial markings at the right base and I cannot rule out an infiltrate in the left medial base Last positive cultures for from bronchoscopy washings and these showed Klebsiella, Acinetobacter and Fina albicans. ABGs on FiO2 of 35% show a pH 7.42, PCO2 of 36.3, PO2 93.3 and a bicarb of 23.9. Lab. Sodium is 128, potassium 3.4, chloride is 90, creatinine is 4.1 and BUN is 58. White count 7600 with 82 segs. H&H is 8.9/25.7 and platelet count is 177,000. Labs been reviewed Medicines been reviewed Physical exam. Vital signs. See below Neurological. Slightly arousable Chest. Loose large airway congestion Heart sounds are distant Abdomen. Occasional bowel sounds. Neck is symmetrical with no meningismus. Face. Symmetrical. Lips and tongue appear to be normal The remainder the physical exam is noncontributory. The remainder the physical exam is also negative. Plan. 1. Continue present regimen 2. Follow-up chest x-ray and labs ABGs Exam (Progress Note) - Constitutional Vitals: Period Temp Pulse Resp BP Sys/Post Pulse Ox Last 24 Hr 86 F-95.7 F 51-64 20-30 92-127/46-70 96-100 Results - Labs CBC & BMP: 05/02/17 04:45 05/02/17 04:45
--- NOTE | 2017-05-02 10:33 | Hospitalist Progress Note ---
Assessment and Plan (1) Acute respiratory failure Status: Acute Assessment and plan: 1)resp failure due to neurological problems- continue trach collar. On antibiotics to cover klebsiella-- levaquin, tobra, and fluconazole also for bronch cultures from 04/22. 10days of IV antibiotics completed with tobra and levaquin. stop these today. also stop fluconazole as it has also been given for 10days. Discussed this case with Dr Quesada to coordinate care. CM pursuing referral to chronic vent unit. 2)CKD- Has not required dialysis for several days. Dr Hardin to see today. I have discussed this case with him. 3)anemia due to bleeding from trach which has stopped though occ some fresh blood and clots suctioned from lungs per nurse. 4)cardiopulmonary arrrest- led to resp failure and anoxic brain injury. on meds for seizure. remains unresponsive other than flinching occasionally to deep pain. 5)prognosis is very poor- family made him DNR but do not want to withdraw vent per reports of prior conversations with them. His niece is seeking conservatorship. Current Visit: Yes Qualifiers: Respiratory failure complication: hypoxia Qualified Code(s): J96.01 - Acute respiratory failure with hypoxia (2) Chronic kidney disease, stage IV (severe) Status: Chronic Current Visit: Yes (3) Anoxic brain injury Status: Acute Current Visit: Yes (4) Ventilator dependence Status: Acute Current Visit: Yes (5) Seizure disorder Status: Acute Current Visit: Yes (6) Coagulopathy Status: Acute Current Visit: Yes (7) Anemia due to acute blood loss Status: Acute Current Visit: Yes (8) Pneumonia due to Klebsiella pneumoniae Status: Acute Current Visit: Yes Hospitalist: Subjective Interval history: Stable on trach collar but requiring frequent suctioning because of thick secretions. Exam - Constitutional Vitals: Period Temp Pulse Resp BP Sys/Post Pulse Ox Last 24 Hr 86 F-95.7 F 51-64 20-30 82-127/40-70 96-100 General appearance: no acute distress, over weight - Eye Eye exam: Absent: EOMI Pupils: Absent: ASHLY - Expanded ENT Exam Mouth exam: Present: moist Throat exam: Present: normal inspection - Respiratory Respiratory exam: Present: clear to auscultation bilaterally - Cardiovascular Cardiovascular exam: Present: regular rate and rhythm - GI/Abdominal GI/Abdominal exam: Present: normal bowel sounds, soft - Extremities Exam Extremities exam: Absent: edema Results - Labs CBC & BMP: 05/02/17 04:45 05/02/17 04:45 Lab Results: I have reviewed the past 24 hour labs
--- NOTE | 2017-05-02 10:38 | XRay Report ---
Exam: XR chest 1V portable Indication: respiratory failure Comparison study: 05/01/2017 Findings: Tracheostomy tube in place. Right IJ central venous catheter in similar position. There are basilar opacities which are similar to prior. There is no pneumothorax. Impression: No significant change. PROCEDURE INTERPRETED AT [facility] DEPARTMENT OF RADIOLOGY Final Report Signed by: Kevon Buckley
[2017-05-02] MEDS: DESITIN 4OZ/NYSTATIN 15 GRAM MIXTURE PASTE TOP SCH ×2 (11:00→23:32)
[2017-05-02] MEDS: BACITRACIN OINT 0.9 GM PACK TOP SCH (11:00)
--- NOTE | 2017-05-02 12:40 | Nephrology Progress Note ---
Nephrology - PN: Subj Interval history: Pt completely unresponsive since arrest. No dialysis since Thursday, Creatinine 4.1, eGFR 3cc/min. Na 128, K 3.4. No root reflex, no blink reflex. Exam (PN)-Nephrology - Vital Signs Vital signs: Period Temp Pulse Resp BP Sys/Post Pulse Ox Last 24 Hr 90.6 F-95.7 F 52-64 21-30 82-127/40-70 96-100 - General Appearance General appearance: chronically ill, intubated EENT: ATNC, PERRL Neck: no JVD, no thyromegaly Respiratory: no kyphosis, clear Cardiology: no murmurs, no rub Gastrointestinal: normoactive bowel sounds, no masses Integumentary: no rash, warm and dry Neurologic: obtunded, aphasic Musculoskeletal: no deformities, no erythema - Lab 05/02/17 04:45 05/02/17 04:45 Most recent lab results ABG pH 7.420 (7.35-7.45) 05/02/17 03:36 ABG pCO2 36.3 MM HG (35-48) 05/02/17 03:36 ABG pO2 96.3 MM HG (80-95) H 05/02/17 03:36 ABG HCO3 23.9 MMOL/L (20-26) 05/02/17 03:36 ABG O2 Saturation 98.0 % (95-100) 05/02/17 03:36 Calcium 7.4 MG/DL (8.5-10.1) L 05/02/17 04:45 Phosphorus 3.9 MG/DL (2.5-4.9) 04/30/17 04:00 Magnesium 2.5 MG/DL (1.8-2.4) H 05/02/17 04:45 Assessment and Plan (1) Anoxic brain injury Problem details: No evidence of recovery. Status: Acute Current Visit: Yes (2) Acute kidney injury superimposed on chronic kidney disease Problem details: No acute indication for renal replacement therapy at this time. Status: Acute Assessment and plan: The patient is not a candidate for chronic hemodialysis due to comorbitities and poor one year predicted survival. HD will not improve his quality of life nor his mortality. Would remove the right femoral HD catheter if not being used as it is a nidus for infection. Conservative management, consider placement. Current Visit: Yes (3) Sudden cardiac Status: Acute Current Visit: Yes (4) Cardiomyopathy Status: Chronic Current Visit: No (5) Bilateral pneumonia Status: Resolved Current Visit: No (6) Cardiac arrest Status: Acute Current Visit: Yes (7) Ventilator dependence Status: Acute Current Visit: Yes (8) Diabetes Status: Chronic Current Visit: No Qualifiers: Diabetes mellitus type: type 1 Diabetes mellitus complication status: with kidney complications Diabetes mellitus complication detail: with chronic kidney disease Chronic kidney disease stage: stage 4 (severe) Qualified Code (s): E10.22 - Type 1 diabetes mellitus with diabetic chronic kidney disease; N18.4 - Chronic kidney disease, stage 4 (severe)
[2017-05-02] MEDS: INSULIN GLARGINE 100 UNIT/ML SUBCUT SCH (23:31)
[2017-05-03] MEDS: INSULIN REGULAR 100 UNIT/ML SUBCUT SCH ×6 (00:58→19:52)
[2017-05-03] MEDS: ALBUTEROL/IPRATROPIUM 3 ML NEB RESP TX SCH ×4 (01:31→19:11)
[2017-05-03 03:21] LABS: Allen Test Positive
[2017-05-03 03:22] LABS: ABG Base Excess 0.5 MMOL/L (-2.5-2.5); ABG HCO3 23.1 MMOL/L (20-26); ABG Oxygen Saturation 98.6 % (95-100); ABG PCO2 29.7 MM HG (35-48); ABG PH 7.509 (7.35-7.45); ABG PO2 119.4 MM HG (80-95)
[2017-05-03 04:54] LABS: Basophils % 0.1 % (0.0-0.8); Eosinophils # 0.2 10*3/uL (0.0-0.87); Eosinophils % 2.2 % (0.00-10.9); Hematocrit 23.9 VOL% (42.0-52.0); Hemoglobin 8.4 GM/DL (14.0-18.0); Immature Granulocytes % 0.4 %; Immature Granulocytes Absolute 0.03 #; Lymphocytes # 0.8 10*3/uL (1.4-4.0); Lymphocytes % 11.2 % (21.2-54.2); Mean Corpuscular HGB Conc 35.1 GM/DL (32-36); Mean Corpuscular Hemoglobin 30 PG (27-34); Mean Corpuscular Volume 85.7 FL (87-102); Monocytes # 0.3 10*3/uL (0.11-0.8); Monocytes % 3.8 % (1.7-12.7); Neutrophils # 5.6 10*3/uL (1.4-7.4); Neutrophils % 82.3 % (38.7-73.9); Platelet Count 172 T/CUMM (130-400); Red Blood Count 2.79 MC/CUMM (3.8-5.5); Red Cell Distribution Width 16.7 % (9.3-17.3); White Blood Count 6.8 T/CUMM (4-12)
[2017-05-03 05:26] LABS: Calcium 7.2 MG/DL (8.5-10.1); Magnesium 2.6 MG/DL (1.8-2.4); Osmolality,Calculated 281.2 MOS/KG (273-304); Potassium 3.5 MMOL/L (3.5-5.1)
[2017-05-03] MEDS: metOLazone 5 MG TABLET PO SCH (08:42)
[2017-05-03] MEDS: METOPROLOL TARTRATE 25 MG TABLET PO SCH ×2 (08:42→21:25)
[2017-05-03] MEDS: LANSOPRAZOLE ODT 30 MG TABLET PO SCH (08:42)
[2017-05-03] MEDS: FUROSEMIDE 40 MG/4 ML VIAL IV SCH ×2 (08:43→16:00)
[2017-05-03] MEDS: BACITRACIN OINT 0.9 GM PACK TOP SCH (08:43)
[2017-05-03] MEDS: levETIRAcetam LIQUID 100 MG/ML 30 ML/BOTTLE PO SCH ×2 (08:43→21:28)
--- NOTE | 2017-05-03 08:53 | XRay Report ---
Exam: XR chest 1V portable Indication: Ventilated, respiratory failure shortness of breath Comparison study: 05/02/2017 radiograph Findings: Tracheostomy tube is in similar position. Heart size is enlarged, similar to prior. Perihilar and basilar interstitial and airspace opacities are similar to slightly increased from prior. There is no pneumothorax. Osseous structures are stable. Impression: Cardiomegaly with slight worsening of perihilar and basilar interstitial opacities suggestive of worsening pulmonary edema. Developing infectious/inflammatory infiltrates are not excluded. Small-moderate bilateral pleural effusions are also suspected. PROCEDURE INTERPRETED AT [facility] DEPARTMENT OF RADIOLOGY Final Report Signed by: Kevon Buckley
--- NOTE | 2017-05-03 09:38 | Hospitalist Progress Note ---
Assessment and Plan (1) Acute respiratory failure Status: Acute Assessment and plan: 1. Respiratory failure due to neurological problems - continue trach collar. Case has been discussed with Dr. Quesada per Dr. Pratt. Dr. Quesada to coordinate care. Case management is looking into a referral to chronic vent unit in [place]. 2. CKD - Creatinine 4.5 today. GFR calculation 17. Dr. Hardin saw patient yesterday. Will discontinue hemodialysis. Patient is moderately edematous today. Currently on Lasix 40 IV bid. Will give one time dose of Lasix 40 IV in addition to morning dose and monitor patient's response. 3. Anemia d/t bleeding from trach - H/H 8.4 and 23.9 today. Hemorrhaging has stopped. RN reports small clot suctioned through trach overnight. This is an improvement from previous nights. Will continue to monitor. 4. Cardiopulonary arrest - lead to respiratory failure and anoxic brain injury. Patient continues to be on Keppra 750 mg PO BID. Remains unresponsive. 5. Poor prognosis - Patient is DNR. CM pursuing placement. Per hospital notes, patient's niece is pursing conservatorship. Current Visit: Yes Qualifiers: Respiratory failure complication: hypoxia Qualified Code(s): J96.01 - Acute respiratory failure with hypoxia (2) Chronic kidney disease, stage IV (severe) Status: Chronic Current Visit: Yes (3) Anoxic brain injury Problem details: No evidence of recovery. Status: Acute Current Visit: Yes (4) Ventilator dependence Status: Acute Current Visit: Yes (5) Seizure disorder Status: Acute Current Visit: Yes (6) Coagulopathy Status: Acute Current Visit: Yes (7) Anemia due to acute blood loss Status: Acute Current Visit: Yes (8) Pneumonia due to Klebsiella pneumoniae Status: Acute Current Visit: Yes Hospitalist: Subjective Interval history: Patient seen and examined today. He remains unresponsive to verbal and painful stimuli. He is stable on trach collar, but continues to require frequent suctioning per RN. RN reports small clot was suctioned through trach overnight, however, no acute events. Exam - Constitutional Vitals: Period Temp Pulse Resp BP Sys/Post Pulse Ox Last 24 Hr 95.2 F-97.0 F 57-71 10-30 79-136/40-99 100-100 - Head Head exam: Absent: abrasion, hematoma, laceration - Eye Eye exam: Present: periorbital swelling. Absent: EOMI Pupils: Absent: ASHLY - Expanded ENT Exam Mouth exam: Present: moist Throat exam: Present: normal inspection - Cardiovascular Cardiovascular exam: Present: regular rate and rhythm - GI/Abdominal GI/Abdominal exam: Present: normal bowel sounds, soft - Extremities Exam Extremities exam: Present: edema Results - Labs CBC & BMP: 05/03/17 04:45 05/03/17 04:45 Lab Results: I have reviewed the past 24 hour labs
[2017-05-03] MEDS ORDERED: FUROSEMIDE 40 MG/4 ML VIAL IV ONE (09:54)
[2017-05-03] MEDS: DESITIN 4OZ/NYSTATIN 15 GRAM MIXTURE PASTE TOP SCH ×2 (10:22→21:27)
[2017-05-03] MEDS: MINERAL OIL/PETROLATUM OPH OINT 3.5 GM TUBE BOTH EYES SCH ×3 (10:22→21:27)
--- NOTE | 2017-05-03 10:44 | Nephrology Progress Note ---
Nephrology - PN: Subj Interval history: Pt unresponsive. Family at bedside. Chart reviewed. Patient examined. Hypotensive with MAPs in 50s. Exam (PN)-Nephrology - Vital Signs Vital signs: Period Temp Pulse Resp BP Sys/Post Pulse Ox Last 24 Hr 95.2 F-97.0 F 57-71 10-30 79-136/44-99 100-100 - General Appearance General appearance: chronically ill, intubated EENT: ATNC, PERRL, mucous membranes moist Neck: JVD, supple Respiratory: no kyphosis, rales Cardiology: no murmurs, no rub Gastrointestinal: normoactive bowel sounds, no tenderness Integumentary: no rash, warm and dry Neurologic: obtunded Musculoskeletal: no deformities, no erythema - Lab 05/03/17 04:45 05/03/17 04:45 Most recent lab results ABG pH 7.509 (7.35-7.45) H 05/03/17 03:05 ABG pCO2 29.7 MM HG (35-48) L 05/03/17 03:05 ABG pO2 119.4 MM HG (80-95) H 05/03/17 03:05 ABG HCO3 23.1 MMOL/L (20-26) 05/03/17 03:05 ABG O2 Saturation 98.6 % (95-100) 05/03/17 03:05 Calcium 7.2 MG/DL (8.5-10.1) L 05/03/17 04:45 Phosphorus 3.9 MG/DL (2.5-4.9) 04/30/17 04:00 Magnesium 2.6 MG/DL (1.8-2.4) H 05/03/17 04:45 Assessment and Plan (1) Anoxic brain injury Problem details: No evidence of recovery. Status: Acute Current Visit: Yes (2) Acute kidney injury superimposed on chronic kidney disease Problem details: No acute indication for renal replacement therapy at this time. Status: Acute Assessment and plan: The patient is not a candidate for chronic hemodialysis due to comorbitities and poor one year predicted survival. HD will not improve his quality of life nor his mortality. Would remove the right femoral HD catheter if not being used as it is a nidus for infection. Conservative management, consider placement. Would increase lasix to 80mg IVP q8-12h. Current Visit: Yes (3) Sudden cardiac Status: Acute Current Visit: Yes (4) Cardiomyopathy Status: Chronic Current Visit: No (5) Bilateral pneumonia Status: Resolved Current Visit: No (6) Cardiac arrest Status: Acute Current Visit: Yes (7) Ventilator dependence Status: Acute Current Visit: Yes (8) Diabetes Status: Chronic Current Visit: No Qualifiers: Diabetes mellitus type: type 1 Diabetes mellitus complication status: with kidney complications Diabetes mellitus complication detail: with chronic kidney disease Chronic kidney disease stage: stage 4 (severe) Qualified Code (s): E10.22 - Type 1 diabetes mellitus with diabetic chronic kidney disease; N18.4 - Chronic kidney disease, stage 4 (severe)
--- NOTE | 2017-05-03 14:06 | Pulmonology Progress Note ---
Pulmonary - PN: Subj Interval history: Is a 61-year-old male whom I am seeing for Dr. jeniffer Bhakta. This patient had a cardiac arrest. He has an end-stage cardiomyopathy. He has had a severe hypoxic brain injury. He will occasionally look around. Family feels like he is improving but this is hard to discern. He is on a trach collar full- time. He is a DO NOT RESUSCITATE. He still requires some suctioning. Chest x-ray shows cardiomegaly and bilateral pleural effusions there are increased interstitial markings at the right base and I cannot rule out an infiltrate in the left medial base Last positive cultures for from bronchoscopy washings and these showed Klebsiella, Acinetobacter and Fina albicans. ABGs on FiO2 of 35% show a pH 7.42, PCO2 of 36.3, PO2 93.3 and a bicarb of 23.9. Lab. Sodium is 128, potassium 3.4, chloride is 90, creatinine is 4.1 and BUN is 58. White count 7600 with 82 segs. H&H is 8.9/25.7 and platelet count is 177,000. 05/03/2017. Chest x-ray is a left oblique. Left diaphragm is not seen well. There are increased central vascular markings on the right and some atelectasis over the medial basal segment of the right lower lung. ABGs on FiO2 of 35% shows a pH of 7.51. PCO2 30. PO2 119 and bicarb of 23. H&H is 8.4/23.9 with a white count of 6800 with 82 segs and platelets of 172,000. Sodium has dropped to 127 with a potassium of 3.5. Creatinine is 4.5 with a BUN of 65. This patient is basically the same as he was on 05/02/2017 Labs been reviewed Medicines been reviewed Physical exam. Vital signs. See below Neurological. Slightly arousable Chest. Loose large airway congestion Heart sounds are distant Abdomen. Occasional bowel sounds. Neck is symmetrical with no meningismus. Face. Symmetrical. Lips and tongue appear to be normal The remainder the physical exam is noncontributory. The remainder the physical exam is also negative. Plan. 1. Continue present regimen 2. Follow-up chest x-ray and labs ABGs 3. 05/03/2017. I made no changes. Exam (Progress Note) - Constitutional Vitals: Period Temp Pulse Resp BP Sys/Post Pulse Ox Last 24 Hr 95.8 F-97.4 F 58-73 10-30 67-136/35-99 96-100 Results - Labs CBC & BMP: 05/03/17 04:45 05/03/17 04:45
[2017-05-03] MEDS: INSULIN GLARGINE 100 UNIT/ML SUBCUT SCH (21:26)
[2017-05-04] MEDS: INSULIN REGULAR 100 UNIT/ML SUBCUT SCH ×6 (00:21→21:48)
[2017-05-04] MEDS: ALBUTEROL/IPRATROPIUM 3 ML NEB RESP TX SCH ×4 (00:34→19:14)
[2017-05-04 03:43] LABS: ABG Base Excess 0.8 MMOL/L (-2.5-2.5); ABG HCO3 25.2 MMOL/L (20-26); ABG Oxygen Saturation 99.3 % (95-100); ABG PCO2 31.1 MM HG (35-48); ABG PH 7.491 (7.35-7.45); ABG TCO2 22.1 MMOL/L (23-27); Allen Test Positive
[2017-05-04 04:31] LABS: Basophils % 0.2 % (0.0-0.8); Eosinophils # 0.1 10*3/uL (0.0-0.87); Eosinophils % 1.1 % (0.00-10.9); Hematocrit 21.6 VOL% (42.0-52.0); Hemoglobin 7.6 GM/DL (14.0-18.0); Immature Granulocytes % 0.3 %; Immature Granulocytes Absolute 0.02 #; Lymphocytes # 0.9 10*3/uL (1.4-4.0); Lymphocytes % 13.9 % (21.2-54.2); Mean Corpuscular HGB Conc 35.2 GM/DL (32-36); Mean Corpuscular Hemoglobin 30 PG (27-34); Mean Corpuscular Volume 84.7 FL (87-102); Mean Platelet Volume 10.5 FL (9.6-12.0); Monocytes # 0.3 10*3/uL (0.11-0.8); Monocytes % 5.2 % (1.7-12.7); Neutrophils # 5.2 10*3/uL (1.4-7.4); Neutrophils % 79.3 % (38.7-73.9); Platelet Count 183 T/CUMM (130-400); Red Blood Count 2.55 MC/CUMM (3.8-5.5); Red Cell Distribution Width 16.8 % (9.3-17.3); White Blood Count 6.5 T/CUMM (4-12)
[2017-05-04 05:05] LABS: Calcium 7.2 MG/DL (8.5-10.1); Osmolality,Calculated 277.4 MOS/KG (273-304); Potassium 3.9 MMOL/L (3.5-5.1)
--- NOTE | 2017-05-04 07:52 | Pulmonology Progress Note ---
Pulmonary - PN: Subj Interval history: This 61-year-old man had a cardiac arrest and has finished the [facility] protocol. He remains on the ventilator. He required higher settings of PEEP and FiO2 over the weekend but this morning his PO2 is 264 on 90% oxygen and 15 of PEEP. We can reduce both the FiO2 and PEEP and recheck ABGs this morning. He remains unresponsive. Apparently does have a bit of a gag reflex. Neurology is to review his case and see what they think about prognosis. Family has made him a DO NOT RESUSCITATE. 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 04/14/2017 patient remains unresponsive. Neurologic evaluation has indicated severe hypoxic brain injury. ABGs are improved. Chest x-ray is stable. Will reduce FiO2 and PEEP. Hopefully can start weaning trial soon. His renal function is getting worse with creatinine up to 6.9. Prognosis is grave. Continuing full support at present. 04/15/2017 patient remains unresponsive. ABGs a little better. Will reduce PEEP to 5 cm. Start weaning trials. Renal function getting worse by the day. Chest x-ray looks a little bit wet. Getting saline to try to maintain urine output. Prognosis grave. 04/16/2017 bloody secretions have come from his endotracheal tube. He has a right lower lobe infiltrate. He has grown Klebsiella from his sputum. He is on Zosyn for that already. Remains unresponsive. Prognosis is poor. Creatinine is 7.7. Patient has end-stage cardiomyopathy and is status post cardiac arrest. He has severe hypoxic brain injury. 04/17/17 ABGs look reasonable. Patient tolerating longer CPAP trials. Patient not able to defend his airway. There is some spontaneous movement but no purposeful movement and he does not respond to anything except painful stimulation. 04/18/2017 patient continues to be unresponsive. His eyes deviate to the right. No change in x-rays. ABGs look good. Creatinine 8.5. Continuing with CPAP trials, however patient not able to defend airway at this point. 04/19/2017 patient remains unresponsive. Eyes deviate to the right. He has some twitching in his left arm. I wonder if there is seizure activity. 04/20/2017 patient is doing some CPAP trials although his mental status is not good. He will require tracheostomy. 04/21/2017 patient was having some twitching activity yesterday. He was seen by Dr. Ulloa. Started on seizure medications. Still no signs of neurologic recovery. Patient is to have tracheostomy today. Consider LTAC transfer after that. 04/22/2017 patient had tracheostomy yesterday. Dr. Grajeda called me afterwards, stated that he saw something distally in the lower trachea. Plans were made for bronchoscopy this morning. X-ray this morning shows almost opacification of the left lung. He may have something in his left main bronchus. We plan to do bronchoscopy shortly. His mental status is unchanged. Likely will need to go to LTAC. 04/23/2017 x-ray this morning looks much better. He had some thrombi in the left main bronchus that we removed yesterday with bronchoscopy. Still has patchy bilateral infiltrates. Patient remains unresponsive. He is getting dialysis on mechanical ventilation. Apparently his insurance company has declined transfer to LTAC. Labs pending this morning. Continuing support. 04/24/2017 ABGs look good. Chest x-ray shows good aeration of both sides. He does have some basilar atelectasis. Weaning trials were held yesterday because of bleeding per tracheostomy. This seems better this morning. Patient gets a little heparin with his dialysis. He is on baby aspirin. I will hold the baby aspirin. Status post cardiac arrest with severe hypoxic brain injury. Also has Klebsiella pneumonia. Severe cardiomyopathy. Patient is a DO NOT RESUSCITATE but family wants to continue supportive care with mechanical ventilation and dialysis for now. 04/28/2017 patient tolerating some CPAP. Still no change in mental status. Cultures grew out gram-negative rods. Adding Levaquin to the tobramycin for Klebsiella and Acinetobacter 04/29/2017 patient is tolerating CPAP quite well. Will start on trach collar. Perhaps we can get him to full-time trach collar soon. Then could start looking for placement. 04/30/2017 patient did trach collar yesterday but tired out toward the end of it. We will continue those. He does have some flinching with painful stimulation otherwise remains unresponsive. 05/01/17 patient has been on trach collar for 24 hours now. Seems to be doing well with that. ABGs look good. Chest x-ray shows some mild bibasilar atelectasis. Left lung well expanded. Patient is afebrile. He will turn his head a bit to painful stimulus. Otherwise not responsive. Patient can be moved to the floor. May want to consider a long-term mechanical ventilation service such as [facility] or the new one in [place]. He has been turned down as far as coverage for an LTAC. 05/04/2017 patient has tolerated trach collar throughout the weekend. Being fed through PEG tube. Getting dialysis. Hematocrit is down to 21. Patient is not responsive. immigration case manager looking for placement. Inpatient hospice would be a consideration. Difficulty is in having the combination of dialysis and tracheostomy. For now continuing supportive care here. Exam (Progress Note) - Constitutional Vitals: Period Temp Pulse Resp BP Sys/Post Pulse Ox Last 24 Hr 97.0 F-98.2 F 65-115 12-32 67-106/35-62 96-100 Exam: Patient is unresponsive, except he does flinch to painful stimulus. Vital signs normal. He does have some respiratory effort and a cough reflex. Pupils small irregular and sluggish. Face symmetrical. Tracheostomy is in place. Neck is supple. Chest reveals scattered rhonchi bilaterally but equal breath sounds today. Heart normal rate rhythm no murmurs. Abdomen soft no masses. Extremities no clubbing cyanosis edema. Results - Labs CBC & BMP: 05/04/17 04:20 05/04/17 04:20 Lab Results: I have reviewed the past 24 hour labs - Diagnostic Findings Procedure: Chest x-ray: image reviewed by me (Bilateral lower lobe infiltrates little change from before. Probable small pleural effusions.) Assessment and Plan (1) Acute respiratory failure Status: Acute Assessment and plan: Patient is on the ventilator 100% oxygen. ABGs look good at present. Will reduce FiO2 to 60%. Certainly cannot start weaning until we see what his mental status is like and that will be after [facility] protocol. 04/13/17 ABGs improved. Will reduce FiO2 and PEEP a little. Prognosis is poor. 04/14/2017 ABGs improved. We can reduce both FiO2 and PEEP. Hopefully one would get his PEEP down to 6 we can start weaning. 04/15/2017 ABGs are better. Reducing PEEP. Start weaning. Mental status will guide us with weaning. 04/16/2017 patient starting to do CPAP. Mental status will guide us where to go later. If we are to continue long-term mechanical ventilatory support and would likely need a tracheostomy in a few days. 04/17/2017 tolerating prolonged CPAP trials. It appears that we will likely be doing a tracheostomy next week if no other changes. I do not think he can defend his airway at this point. 04/18/2017 patient continues to tolerate CPAP, however he is not alert and unable to defend his airway at this point. 04/19/2017 continuing with CPAP trials. ABGs improved. Reduce FiO2. Progressing with CPAP. Likely will need tracheostomy 04/20/2017 patient tolerating CPAP trials but would not be able to defend his airway. Will proceed with ENT consult for tracheostomy. 04/21/2017 ABGs are pending but so far we have been able to relate him fairly easily. He is for tracheostomy today. Reasonable to continue ventilatory support for a couple of weeks. His family is seeing some motion that they are interpreting as purposeful. I have not seen any purposeful motion. He does have some seizure activity. 04/22/2017 patient has done okay with CPAP's prior to the tracheostomy. He required pressors after that. He has opacification of the left long. Hopefully we can clear that up with bronchoscopy. Suspect mucous plugging or thrombi in the left mainstem. 04/23/2017 respiratory failure following cardiac arrest with hypoxic brain injury. Klebsiella pneumonia. Left lung looks better radiographically. Apparently had thrombi in the left main bronchus due either to bleeding from the tracheostomy or pulmonary hemorrhage. CT was negative for pulmonary embolus. He has bibasilar pneumonia and pleural effusions. 04/24/2017 ABGs look good. Resume weaning trials today. 04/28/2017 continuing with weaning trials. Oxygen saturations acceptable. 04/29/2017 patient tolerated CPAP quite well. Start on trach collar. 04/30/2017 ABGs look good. Tolerating trach collar but tired after several hours. Will continue to try to increase times on trach collar. 05/01/17 patient tolerating trach collar for 24 hours. ABGs look good on 35% trach collar. 05/04/2017 patient now tolerating trach collar full-time. PO2 is 130 on 35% trach collar. Will reduce to 30%. Current Visit: Yes Qualifiers: Respiratory failure complication: hypoxia Qualified Code(s): J96.01 - Acute respiratory failure with hypoxia (2) Cardiac arrest Status: Acute Assessment and plan: Patient had a cardiac arrest last night. He has known severe cardiomyopathy. Did not have any known electrolyte imbalance. Does have chronic renal failure with a creatinine now around 5. He would be at increased risk for a pulmonary embolism. 04/13/17 it appears that he has had significant brain injury. Await neurologic evaluation. 04/14/2017 and apparent severe hypoxic brain injury. See neurology note 04/15/2017 apparent severe hypoxic brain injury. 04/16/2017 continues to exhibit signs of severe hypoxic brain injury. 04/17/2017 severe brain injury. 04/18/2017 again continues to show signs of hypoxic brain injury. Responds to painful stimulus. Does not follow with his eyes. Does not respond to questions. Eyes deviate to the right. 04/19/2017 hypoxic brain injury. Patient is turning his head at times and moving all little but not in response to requests. Does not appear to be purposeful. 04/20/2017 patient has a severe cardiomyopathy. Has severe hypoxic brain injury post cardiac arrest. His family wants us to continue full support. Will need tracheostomy to wean off ventilator. He is not able to defend his airway. 04/21/2017 severe cardiomyopathy hypoxic brain injury. We had considered pulmonary embolus before. He is off anticoagulants now because of some pulmonary hemorrhage. Will obtain a CT PE protocol once he gets the trach done. 04/22/17 hypoxic brain injury. Cardiac arrest related to his cardiomyopathy. 04/23/2017 status post cardiac arrest probably due to his cardiomyopathy with arrhythmias. Hypoxic brain injury persists. 04/24/2017 has severe cardiomyopathy with subsequent arrest. Hypoxic brain injury. Prognosis is poor. 04/28/2017 severe hypoxic brain injury. 04/29/2017 severe hypoxic brain injury due to cardiac arrest from severe cardiomyopathy. Prognosis remains poor 04/30/2017 severe hypoxic brain injury symptoms persist. 05/01/17 again has severe hypoxic brain injury. 05/04/2017 severe hypoxic brain injury secondary to cardiac arrest, caused by severe cardiomyopathy. Current Visit: Yes (3) Chronic renal insufficiency Status: Chronic Assessment and plan: Creatinine has gone up from about 3.7-5 over the last few days. 04/13/17 creatinine up to 5.9 04/14/2017 creatinine is up to 6.9. Will start on some nasogastric feedings and IV fluids. 04/15/2017 creatinine up to 7.5. Defer to nephrology 04/16/2017 creatinine is 7.7. Perhaps it's levelling off. 04/17/2017 creatinine 8.1. Renal following 04/18/2017 creatinine 8.5 now. Bicarb level is 19. Potassium 4.8. He is making urine. 04/19/2017 patient started on dialysis yesterday. Chest x-ray looks a little bit less wet. 04/20/2017 defer to nephrology. He has been started on dialysis and his x-ray is looking a little better. 04/21/2017 continuing dialysis. 04/22/2017 getting dialysis. 04/23/2017 getting dialysis regularly. 04/24/2017 acute renal failure being treated with dialysis. He is due for dialysis today. 04/28/2017 followed by renal with dialysis as required. 04/29/2017 getting dialysis as required 04/30/2017 getting dialysis as required 05/01/17 continuing with dialysis. 05/04/2017 continuing with dialysis at this point. Current Visit: Yes (4) Congestive heart failure Status: Chronic Assessment and plan: Systolic acute on chronic congestive failure due to severe cardiomyopathy. His troponins are not elevated so it does not appear that he had a myocardial infarction as the cause of his arrest last night. 04/13/17 x-ray shows increased interstitial markings consistent with congestive heart failure, but not brigida pulmonary edema. 04/14/2017 does not appear to be in pulmonary edema. 04/15/2017 appears to be developing pulmonary edema. However ABGs are better. IV fluids started yesterday by cardiology. 04/16/2017 this lobe infiltrate. Difficult to tell him what this is heart failure, which may be the Klebsiella pneumonia. He is on Zosyn. 04/17/2017 chest x-ray compatible with mild congestive heart failure. Also getting antibiotics for Klebsiella pneumonia 04/18/2017 severe cardiomyopathy. 04/19/2017 seems to be a little better after dialysis. 04/20/2017 again chest x-ray is a little better. 04/21/2017 improved with dialysis. 04/22/2017 severe cardiomyopathy. Does not appear to be in failure at present. 04/23/2017 severe cardiomyopathy with bilateral pleural effusions. 04/24/2017 severe cardiomyopathy. Bilateral modest pleural effusions and basilar atelectasis. 04/28/2017 severe cardiomyopathy, probably mild failure at this point. 04/29/2017 this appears to be better controlled. 04/30/2017 has a right pleural effusion. May be a little ahead on fluid. Defer to dialysis/renal. 05/01/17 has a cardiomyopathy. Congestive heart failure symptoms primarily controlled by dialysis. 05/04/2017 end-stage cardiomyopathy. X-ray looks a little wet. Due for dialysis. Current Visit: Yes Qualifiers: Congestive heart failure type: unspecified congestive heart failure type Congestive heart failure chronicity: acute on chronic Qualified Code(s): I50.9 - Heart failure, unspecified (5) Cellulitis and abscess of face Status: Acute Assessment and plan: He has actually completed full course of treatment for the cellulitis. We need to be careful about vancomycin with his renal failure. Defer to ENT and nephrology on antibiotics and dosing. Current Visit: No (6) Nephrotic syndrome Status: Chronic Assessment and plan: He has peripheral edema. Low serum protein. Increased risk for DVT/PTED. Current Visit: No (7) Pulmonary embolism Status: Ruled-out Assessment and plan: Perfusion lung scan suggestive of pulmonary embolism. Unable to obtain PE protocol CT scan due to renal failure. Patient is on empiric heparin infusion. 04/14/2017 continuing heparin for suspected pulmonary thromboembolic disease 04/15/2017 patient is on heparin. 04/16/2017 his perfusion lung scan was suggestive of pulmonary embolism. We do not have a definitive diagnosis. He has had some pulmonary hemorrhage. I stop the heparin yesterday. Difficult situation. 04/17/2017 this is not a definitive diagnosis which was suspected at the time of his arrest. He had nonspecifically abnormal VQ lung scan. We did not do a CT PE protocol because of the renal failure. His heparin has been held because of bloody pulmonary secretions. Continue to monitor. 04/18/2017 will put on subcu heparin. 04/19/2017 never clear-cut about whether he had an embolus. He had some pulmonary hemorrhage when fully anticoagulated. We now have all subcu heparin prophylactic doses. Now that he is on dialysis we can do a CT PE protocol and will consider that tomorrow. 04/20/2017 this is not a definite diagnosis. We are using DVT prophylaxis at present. It will be worthwhile at some point to get CT PE protocol now that he is on dialysis. 04/21/2017 this is a questionable diagnosis. Plan CT PE protocol either later today or tomorrow. 04/22/2017 again need to do a CT PE protocol. Likely will do that later today. 04/23/2017 pulmonary embolus has been ruled out. 05/01/17 patient does NOT have a pulmonary embolism. Current Visit: Yes
--- NOTE | 2017-05-04 08:07 | XRay Report ---
XR chest 1V portable Indication: SOB Comparison: Chest x-ray dated May 03, 2017 Technique: Single frontal view of the chest. Findings: Continued cardiomegaly. Continued bilateral lower lung atelectasis/consolidation and small bilateral pleural fluid. Visualized osseous and surrounding soft tissue structures appear grossly unchanged. IMPRESSION: No significant interval change. PROCEDURE INTERPRETED AT [facility] DEPARTMENT OF RADIOLOGY Final Report Signed by: Dr Austin Galindo
[2017-05-04] MEDS: FUROSEMIDE 40 MG/4 ML VIAL IV SCH ×2 (09:35→17:07)
[2017-05-04] MEDS: BACITRACIN OINT 0.9 GM PACK TOP SCH (09:35)
[2017-05-04] MEDS: levETIRAcetam LIQUID 100 MG/ML 30 ML/BOTTLE PO SCH ×2 (09:36→21:48)
[2017-05-04] MEDS: DESITIN 4OZ/NYSTATIN 15 GRAM MIXTURE PASTE TOP SCH ×2 (09:37→21:47)
[2017-05-04] MEDS: MINERAL OIL/PETROLATUM OPH OINT 3.5 GM TUBE BOTH EYES SCH ×3 (09:37→21:47)
[2017-05-04] MEDS: METOPROLOL TARTRATE 25 MG TABLET PO SCH ×2 (09:37→21:48)
[2017-05-04] MEDS: metOLazone 5 MG TABLET PO SCH (09:37)
[2017-05-04] MEDS: LANSOPRAZOLE ODT 30 MG TABLET PO SCH (09:39)
--- NOTE | 2017-05-04 14:32 | Hospitalist Progress Note ---
Assessment and Plan (1) Acute respiratory failure Status: Acute Assessment and plan: 1)resp failure due to neurological problems- continue trach collar. antibiotics stopped after 10day course for positive bronch cultures. Discussed this case with Dr Bhakta to coordinate care. In ICU because he needs frequent suctioning. 2)CKD- Has not required dialysis for several days. Dr Williamson and I discussed his situation and he will talk to his niece also. At this time she told me she understood stopping the dialysis if it wasn't going to change anything. He is DNR, but she wants other supports given. 3)anemia due to bleeding from trach which has stopped 4)cardiopulmonary arrrest- led to resp failure and anoxic brain injury. on meds for seizure. remains unresponsive other than flinching occasionally to deep pain. 5)prognosis is very poor- family made him DNR His niece is seeking conservatorship. She needs 2 doctors to sign with notary witness that he is not able to manage his affairs. Summer Nixon is seeking placement at LTAC v NH. Current Visit: Yes Qualifiers: Respiratory failure complication: hypoxia Qualified Code(s): J96.01 - Acute respiratory failure with hypoxia (2) Chronic kidney disease, stage IV (severe) Status: Chronic Current Visit: Yes (3) Anoxic brain injury Problem details: No evidence of recovery. Status: Acute Current Visit: Yes (4) Ventilator dependence Status: Acute Current Visit: Yes (5) Seizure disorder Status: Acute Current Visit: Yes (6) Coagulopathy Status: Acute Current Visit: Yes (7) Anemia due to acute blood loss Status: Acute Current Visit: Yes (8) Pneumonia due to Klebsiella pneumoniae Status: Acute Current Visit: Yes Hospitalist: Subjective Interval history: Mr Mantilla is the same this morning. I have discussed his case and goals of care with Dr Bhakta, Dr Williamson and his niece. She says the family says that they want him supported but agrees to discontinuing dialysis since his neuro status is not improving. Dr Williamson plans to talk to her today also. SW is working on a plan of discharge to LTAC or a shelter, depending on his insurance coverage. He requires frequent suctioning. Exam - Constitutional Vitals: Period Temp Pulse Resp BP Sys/Post Pulse Ox Last 24 Hr 97.8 F-98.3 F 68-115 12-32 85-106/48-62 98-100 General appearance: no acute distress, over weight - Eye Eye exam: Absent: EOMI Pupils: Absent: ASHLY - Expanded ENT Exam Mouth exam: Present: moist Throat exam: Present: normal inspection - Respiratory Respiratory exam: Present: clear to auscultation bilaterally - Cardiovascular Cardiovascular exam: Present: regular rate and rhythm - GI/Abdominal GI/Abdominal exam: Present: normal bowel sounds - Extremities Exam Extremities exam: Present: edema (improved from yesterday) Results - Labs CBC & BMP: 05/04/17 04:20 05/04/17 04:20 Lab Results: I have reviewed the past 24 hour labs
[2017-05-04] MEDS: INSULIN GLARGINE 100 UNIT/ML SUBCUT SCH (21:48)
--- NOTE | 2017-05-04 23:17 | Nephrology Progress Note ---
Nephrology - PN: Subj Interval history: No change in neurologic status. Blood pressure borderline low. Exam (PN)-Nephrology - Vital Signs Vital signs: Period Temp Pulse Resp BP Sys/Post Pulse Ox Last 24 Hr 97.8 F-98.5 F 70-85 15-36 89-107/50-71 92-100 Exam: Gen.: Unresponsive. Neck: Supple. No JVD or bruit. Tracheostomy present Cardiovascular: Regular rate and rhythm. No murmur rub or gallop Lungs: Clear Abdomen: Soft. Nontender. Positive bowel sounds. No organomegaly Extremities: 1+ edema - Lab 05/04/17 04:20 05/04/17 04:20 Most recent lab results ABG pH 7.491 (7.35-7.45) H 05/04/17 03:15 ABG pCO2 31.1 MM HG (35-48) L 05/04/17 03:15 ABG pO2 130.0 MM HG (80-95) H 05/04/17 03:15 ABG HCO3 25.2 MMOL/L (20-26) 05/04/17 03:15 ABG O2 Saturation 99.3 % (95-100) 05/04/17 03:15 Calcium 7.2 MG/DL (8.5-10.1) L 05/04/17 04:20 Phosphorus 4.6 MG/DL (2.5-4.9) 05/04/17 04:20 Magnesium 2.6 MG/DL (1.8-2.4) H 05/03/17 04:45 Assessment and Plan (1) Chronic kidney disease, stage IV (severe) Status: Chronic Assessment and plan: 61-year-old man admitted with: * CRF stage IV. Baseline creatinine mid threes * ARF on CRF. Last dialysis was 04/28/2017. Creatinine is slowly rising. * Nephrotic syndrome * Diabetes mellitus * Cardiomyopathy * Cardiac arrest. * Ventilatory failure. Post tracheostomy. Now on trach collar * Anoxic brain injury. No improvement in neurologic status. I discussed his overall status with Dr. Antonio. He has been supported maximally since his arrest. There is been no improvement in his neurologic status. His current neurologic status is not affected by uremia. Further dialysis will not improve his underlying neurologic injury. It is reasonable to discontinue dialysis if his family is agreeable. Current Visit: Yes (2) Acute respiratory failure Status: Acute Current Visit: Yes Qualifiers: Respiratory failure complication: hypoxia Qualified Code(s): J96.01 - Acute respiratory failure with hypoxia (3) Cardiac arrest Status: Acute Current Visit: Yes (4) Cellulitis and abscess of face Status: Acute Current Visit: No (5) Cardiomyopathy Status: Chronic Current Visit: No (6) Diabetes Status: Chronic Current Visit: No Qualifiers: Diabetes mellitus type: type 1 Diabetes mellitus complication status: with kidney complications Diabetes mellitus complication detail: with chronic kidney disease Chronic kidney disease stage: stage 4 (severe) Qualified Code (s): E10.22 - Type 1 diabetes mellitus with diabetic chronic kidney disease; N18.4 - Chronic kidney disease, stage 4 (severe) (7) Nephrotic syndrome Status: Chronic Current Visit: No
[2017-05-05] MEDS: INSULIN REGULAR 100 UNIT/ML SUBCUT SCH ×6 (00:29→20:52)
[2017-05-05] MEDS: ALBUTEROL/IPRATROPIUM 3 ML NEB RESP TX SCH ×4 (00:35→19:19)
[2017-05-05 04:12] LABS: Calcium 7.6 MG/DL (8.5-10.1); Osmolality,Calculated 278.6 MOS/KG (273-304)
--- NOTE | 2017-05-05 06:58 | Pulmonology Progress Note ---
Pulmonary - PN: Subj Interval history: This 61-year-old man had a cardiac arrest and has finished the [facility] protocol. He remains on the ventilator. He required higher settings of PEEP and FiO2 over the weekend but this morning his PO2 is 264 on 90% oxygen and 15 of PEEP. We can reduce both the FiO2 and PEEP and recheck ABGs this morning. He remains unresponsive. Apparently does have a bit of a gag reflex. Neurology is to review his case and see what they think about prognosis. Family has made him a DO NOT RESUSCITATE. 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 04/14/2017 patient remains unresponsive. Neurologic evaluation has indicated severe hypoxic brain injury. ABGs are improved. Chest x-ray is stable. Will reduce FiO2 and PEEP. Hopefully can start weaning trial soon. His renal function is getting worse with creatinine up to 6.9. Prognosis is grave. Continuing full support at present. 04/15/2017 patient remains unresponsive. ABGs a little better. Will reduce PEEP to 5 cm. Start weaning trials. Renal function getting worse by the day. Chest x-ray looks a little bit wet. Getting saline to try to maintain urine output. Prognosis grave. 04/16/2017 bloody secretions have come from his endotracheal tube. He has a right lower lobe infiltrate. He has grown Klebsiella from his sputum. He is on Zosyn for that already. Remains unresponsive. Prognosis is poor. Creatinine is 7.7. Patient has end-stage cardiomyopathy and is status post cardiac arrest. He has severe hypoxic brain injury. 04/17/17 ABGs look reasonable. Patient tolerating longer CPAP trials. Patient not able to defend his airway. There is some spontaneous movement but no purposeful movement and he does not respond to anything except painful stimulation. 04/18/2017 patient continues to be unresponsive. His eyes deviate to the right. No change in x-rays. ABGs look good. Creatinine 8.5. Continuing with CPAP trials, however patient not able to defend airway at this point. 04/19/2017 patient remains unresponsive. Eyes deviate to the right. He has some twitching in his left arm. I wonder if there is seizure activity. 04/20/2017 patient is doing some CPAP trials although his mental status is not good. He will require tracheostomy. 04/21/2017 patient was having some twitching activity yesterday. He was seen by Dr. Ulloa. Started on seizure medications. Still no signs of neurologic recovery. Patient is to have tracheostomy today. Consider LTAC transfer after that. 04/22/2017 patient had tracheostomy yesterday. Dr. Grajeda called me afterwards, stated that he saw something distally in the lower trachea. Plans were made for bronchoscopy this morning. X-ray this morning shows almost opacification of the left lung. He may have something in his left main bronchus. We plan to do bronchoscopy shortly. His mental status is unchanged. Likely will need to go to LTAC. 04/23/2017 x-ray this morning looks much better. He had some thrombi in the left main bronchus that we removed yesterday with bronchoscopy. Still has patchy bilateral infiltrates. Patient remains unresponsive. He is getting dialysis on mechanical ventilation. Apparently his insurance company has declined transfer to LTAC. Labs pending this morning. Continuing support. 04/24/2017 ABGs look good. Chest x-ray shows good aeration of both sides. He does have some basilar atelectasis. Weaning trials were held yesterday because of bleeding per tracheostomy. This seems better this morning. Patient gets a little heparin with his dialysis. He is on baby aspirin. I will hold the baby aspirin. Status post cardiac arrest with severe hypoxic brain injury. Also has Klebsiella pneumonia. Severe cardiomyopathy. Patient is a DO NOT RESUSCITATE but family wants to continue supportive care with mechanical ventilation and dialysis for now. 04/28/2017 patient tolerating some CPAP. Still no change in mental status. Cultures grew out gram-negative rods. Adding Levaquin to the tobramycin for Klebsiella and Acinetobacter 04/29/2017 patient is tolerating CPAP quite well. Will start on trach collar. Perhaps we can get him to full-time trach collar soon. Then could start looking for placement. 04/30/2017 patient did trach collar yesterday but tired out toward the end of it. We will continue those. He does have some flinching with painful stimulation otherwise remains unresponsive. 05/01/17 patient has been on trach collar for 24 hours now. Seems to be doing well with that. ABGs look good. Chest x-ray shows some mild bibasilar atelectasis. Left lung well expanded. Patient is afebrile. He will turn his head a bit to painful stimulus. Otherwise not responsive. Patient can be moved to the floor. May want to consider a long-term mechanical ventilation service such as [facility] or the new one in [place]. He has been turned down as far as coverage for an LTAC. 05/04/2017 patient has tolerated trach collar throughout the weekend. Being fed through PEG tube. Getting dialysis. Hematocrit is down to 21. Patient is not responsive. seafood manager looking for placement. Inpatient hospice would be a consideration. Difficulty is in having the combination of dialysis and tracheostomy. For now continuing supportive care here. 05/05/2017 patient remains on trach collar. Creatinine a little over 5. It appears that dialysis is going to be discontinued. Patient prognosis is poor. Neurological situation has not changed. Patient will turn his head slightly to painful stimulus but does not respond to any verbal stimulus. No purposeful movements. Exam (Progress Note) - Constitutional Vitals: Period Temp Pulse Resp BP Sys/Post Pulse Ox Last 24 Hr 97.6 F-98.5 F 70-76 13-36 94-126/51-78 92-100 Exam: Patient is unresponsive, except he does flinch to painful stimulus. Vital signs normal. He does have some respiratory effort and a cough reflex. Pupils small irregular and sluggish. Face symmetrical. Tracheostomy is in place. Respiratory rate in the mid teens on trach collar. Neck is supple. Chest reveals scattered rhonchi bilaterally but equal breath sounds today. Heart normal rate rhythm no murmurs. Abdomen soft no masses. Extremities no clubbing cyanosis edema. Results - Labs CBC & BMP: 05/04/17 04:20 05/05/17 03:05 Lab Results: I have reviewed the past 24 hour labs Assessment and Plan (1) Acute respiratory failure Status: Acute Assessment and plan: Patient is on the ventilator 100% oxygen. ABGs look good at present. Will reduce FiO2 to 60%. Certainly cannot start weaning until we see what his mental status is like and that will be after [facility] protocol. 04/13/17 ABGs improved. Will reduce FiO2 and PEEP a little. Prognosis is poor. 04/14/2017 ABGs improved. We can reduce both FiO2 and PEEP. Hopefully one would get his PEEP down to 6 we can start weaning. 04/15/2017 ABGs are better. Reducing PEEP. Start weaning. Mental status will guide us with weaning. 04/16/2017 patient starting to do CPAP. Mental status will guide us where to go later. If we are to continue long-term mechanical ventilatory support and would likely need a tracheostomy in a few days. 04/17/2017 tolerating prolonged CPAP trials. It appears that we will likely be doing a tracheostomy next week if no other changes. I do not think he can defend his airway at this point. 04/18/2017 patient continues to tolerate CPAP, however he is not alert and unable to defend his airway at this point. 04/19/2017 continuing with CPAP trials. ABGs improved. Reduce FiO2. Progressing with CPAP. Likely will need tracheostomy 04/20/2017 patient tolerating CPAP trials but would not be able to defend his airway. Will proceed with ENT consult for tracheostomy. 04/21/2017 ABGs are pending but so far we have been able to relate him fairly easily. He is for tracheostomy today. Reasonable to continue ventilatory support for a couple of weeks. His family is seeing some motion that they are interpreting as purposeful. I have not seen any purposeful motion. He does have some seizure activity. 04/22/2017 patient has done okay with CPAP's prior to the tracheostomy. He required pressors after that. He has opacification of the left long. Hopefully we can clear that up with bronchoscopy. Suspect mucous plugging or thrombi in the left mainstem. 04/23/2017 respiratory failure following cardiac arrest with hypoxic brain injury. Klebsiella pneumonia. Left lung looks better radiographically. Apparently had thrombi in the left main bronchus due either to bleeding from the tracheostomy or pulmonary hemorrhage. CT was negative for pulmonary embolus. He has bibasilar pneumonia and pleural effusions. 04/24/2017 ABGs look good. Resume weaning trials today. 04/28/2017 continuing with weaning trials. Oxygen saturations acceptable. 04/29/2017 patient tolerated CPAP quite well. Start on trach collar. 04/30/2017 ABGs look good. Tolerating trach collar but tired after several hours. Will continue to try to increase times on trach collar. 05/01/17 patient tolerating trach collar for 24 hours. ABGs look good on 35% trach collar. 05/04/2017 patient now tolerating trach collar full-time. PO2 is 130 on 35% trach collar. Will reduce to 30%. 05/05/2017 patient remains on trach collar. Oxygen saturation acceptable with 30 % trach collar. Current Visit: Yes Qualifiers: Respiratory failure complication: hypoxia Qualified Code(s): J96.01 - Acute respiratory failure with hypoxia (2) Cardiac arrest Status: Acute Assessment and plan: Patient had a cardiac arrest last night. He has known severe cardiomyopathy. Did not have any known electrolyte imbalance. Does have chronic renal failure with a creatinine now around 5. He would be at increased risk for a pulmonary embolism. 04/13/17 it appears that he has had significant brain injury. Await neurologic evaluation. 04/14/2017 and apparent severe hypoxic brain injury. See neurology note 04/15/2017 apparent severe hypoxic brain injury. 04/16/2017 continues to exhibit signs of severe hypoxic brain injury. 04/17/2017 severe brain injury. 04/18/2017 again continues to show signs of hypoxic brain injury. Responds to painful stimulus. Does not follow with his eyes. Does not respond to questions. Eyes deviate to the right. 04/19/2017 hypoxic brain injury. Patient is turning his head at times and moving all little but not in response to requests. Does not appear to be purposeful. 04/20/2017 patient has a severe cardiomyopathy. Has severe hypoxic brain injury post cardiac arrest. His family wants us to continue full support. Will need tracheostomy to wean off ventilator. He is not able to defend his airway. 04/21/2017 severe cardiomyopathy hypoxic brain injury. We had considered pulmonary embolus before. He is off anticoagulants now because of some pulmonary hemorrhage. Will obtain a CT PE protocol once he gets the trach done. 04/22/17 hypoxic brain injury. Cardiac arrest related to his cardiomyopathy. 04/23/2017 status post cardiac arrest probably due to his cardiomyopathy with arrhythmias. Hypoxic brain injury persists. 04/24/2017 has severe cardiomyopathy with subsequent arrest. Hypoxic brain injury. Prognosis is poor. 04/28/2017 severe hypoxic brain injury. 04/29/2017 severe hypoxic brain injury due to cardiac arrest from severe cardiomyopathy. Prognosis remains poor 04/30/2017 severe hypoxic brain injury symptoms persist. 05/01/17 again has severe hypoxic brain injury. 05/04/2017 severe hypoxic brain injury secondary to cardiac arrest, caused by severe cardiomyopathy. 05/05/2017 severe hypoxic brain injury. No improvement. Current Visit: Yes (3) Chronic renal insufficiency Status: Chronic Assessment and plan: Creatinine has gone up from about 3.7-5 over the last few days. 04/13/17 creatinine up to 5.9 04/14/2017 creatinine is up to 6.9. Will start on some nasogastric feedings and IV fluids. 04/15/2017 creatinine up to 7.5. Defer to nephrology 04/16/2017 creatinine is 7.7. Perhaps it's levelling off. 04/17/2017 creatinine 8.1. Renal following 04/18/2017 creatinine 8.5 now. Bicarb level is 19. Potassium 4.8. He is making urine. 04/19/2017 patient started on dialysis yesterday. Chest x-ray looks a little bit less wet. 04/20/2017 defer to nephrology. He has been started on dialysis and his x-ray is looking a little better. 04/21/2017 continuing dialysis. 04/22/2017 getting dialysis. 04/23/2017 getting dialysis regularly. 04/24/2017 acute renal failure being treated with dialysis. He is due for dialysis today. 04/28/2017 followed by renal with dialysis as required. 04/29/2017 getting dialysis as required 04/30/2017 getting dialysis as required 05/01/17 continuing with dialysis. 05/04/2017 continuing with dialysis at this point. 05/05/2017 nephrology and primary service have discussed this with the family. Apparently dialysis will be discontinued. Current Visit: Yes (4) Congestive heart failure Status: Chronic Assessment and plan: Systolic acute on chronic congestive failure due to severe cardiomyopathy. His troponins are not elevated so it does not appear that he had a myocardial infarction as the cause of his arrest last night. 04/13/17 x-ray shows increased interstitial markings consistent with congestive heart failure, but not brigida pulmonary edema. 04/14/2017 does not appear to be in pulmonary edema. 04/15/2017 appears to be developing pulmonary edema. However ABGs are better. IV fluids started yesterday by cardiology. 04/16/2017 this lobe infiltrate. Difficult to tell him what this is heart failure, which may be the Klebsiella pneumonia. He is on Zosyn. 04/17/2017 chest x-ray compatible with mild congestive heart failure. Also getting antibiotics for Klebsiella pneumonia 04/18/2017 severe cardiomyopathy. 04/19/2017 seems to be a little better after dialysis. 04/20/2017 again chest x-ray is a little better. 04/21/2017 improved with dialysis. 04/22/2017 severe cardiomyopathy. Does not appear to be in failure at present. 04/23/2017 severe cardiomyopathy with bilateral pleural effusions. 04/24/2017 severe cardiomyopathy. Bilateral modest pleural effusions and basilar atelectasis. 04/28/2017 severe cardiomyopathy, probably mild failure at this point. 04/29/2017 this appears to be better controlled. 04/30/2017 has a right pleural effusion. May be a little ahead on fluid. Defer to dialysis/renal. 05/01/17 has a cardiomyopathy. Congestive heart failure symptoms primarily controlled by dialysis. 05/04/2017 end-stage cardiomyopathy. X-ray looks a little wet. Due for dialysis. Current Visit: Yes Qualifiers: Congestive heart failure type: unspecified congestive heart failure type Congestive heart failure chronicity: acute on chronic Qualified Code(s): I50.9 - Heart failure, unspecified (5) Cellulitis and abscess of face Status: Acute Assessment and plan: He has actually completed full course of treatment for the cellulitis. We need to be careful about vancomycin with his renal failure. Defer to ENT and nephrology on antibiotics and dosing. Current Visit: No (6) Nephrotic syndrome Status: Chronic Assessment and plan: He has peripheral edema. Low serum protein. Increased risk for DVT/PTED. Current Visit: No (7) Pulmonary embolism Status: Ruled-out Assessment and plan: Perfusion lung scan suggestive of pulmonary embolism. Unable to obtain PE protocol CT scan due to renal failure. Patient is on empiric heparin infusion. 04/14/2017 continuing heparin for suspected pulmonary thromboembolic disease 04/15/2017 patient is on heparin. 04/16/2017 his perfusion lung scan was suggestive of pulmonary embolism. We do not have a definitive diagnosis. He has had some pulmonary hemorrhage. I stop the heparin yesterday. Difficult situation. 04/17/2017 this is not a definitive diagnosis which was suspected at the time of his arrest. He had nonspecifically abnormal VQ lung scan. We did not do a CT PE protocol because of the renal failure. His heparin has been held because of bloody pulmonary secretions. Continue to monitor. 04/18/2017 will put on subcu heparin. 04/19/2017 never clear-cut about whether he had an embolus. He had some pulmonary hemorrhage when fully anticoagulated. We now have all subcu heparin prophylactic doses. Now that he is on dialysis we can do a CT PE protocol and will consider that tomorrow. 04/20/2017 this is not a definite diagnosis. We are using DVT prophylaxis at present. It will be worthwhile at some point to get CT PE protocol now that he is on dialysis. 04/21/2017 this is a questionable diagnosis. Plan CT PE protocol either later today or tomorrow. 04/22/2017 again need to do a CT PE protocol. Likely will do that later today. 04/23/2017 pulmonary embolus has been ruled out. 05/01/17 patient does NOT have a pulmonary embolism. Current Visit: Yes
--- NOTE | 2017-05-05 08:45 | Hospitalist Progress Note ---
Hospitalist: Subjective Interval history: No fever. No changes neurologically. Tolerating po. Loose stool via fecal management system. Exam - Constitutional Vitals: Period Temp Pulse Resp BP Sys/Post Pulse Ox Last 24 Hr 97.5 F-98.5 F 70-76 13-36 94-135/51-81 92-100 Exam: GEN: Chronically ill appearing, opens eyes but doesn't follow commands, sedated on the vent NECK: trach in place on TC CV: RRR no M LUNGS: clear on right, diminished on the left, nonlabored ABD: Soft, hypoactive bowel sounds. No masses or HSM appreciated. +PEG EXT: warm no c/c/no edema - Expanded ENT Exam Mouth exam: Present: moist Throat exam: Present: normal inspection Results - Labs CBC & BMP: 05/04/17 04:20 05/05/17 03:05 - Impressions (1) Acute Respiratory failure due to with Klebsiella PNA, Acinetobacter and Fina and left main stem thrombus- improved. Now respiratory failure is due to neurological compromise/ anoxic brain injury - s/p thrombectomy LM stem bronchus, ELLEN and LLL via FOB 04/22 Status: Acute Assessment and plan: - Pulmonary managing trach collar - Trach 04/21 by ENT - Completed Zosyn, Fluconazole and inhaled MOLINA 300mg BID, bronchodilators, vent support/ oxygen - CT of the chest on 04/22/2017 was negative for PE - CXR 04/25 shows complete white out of left lung ? fluid. ? thoracentesis - Follow-up repeat sputum results from recent bronchoscopy Current Visit: No Qualifiers: Chronicity: acute (2) Coagulapathy with acute blood loss anemia - s/p FFP, cryoprecipitate, vitamin K and protamine and PRBCs. No evidence of DIC. Holding all blood thinners, NSAIDS, ASA. HIT pending (though pts are normal ) - Serial labs (3) Left lung density- improved - ? fluid vs. blood vs. other (4) Anoxic brain injury- unchanged Status: Acute Current Visit: Yes - Neurology has seen and suspects poor prognosis for recovery. - Monitor neuro status (5) Suspected seizure disorder - s/p Ativan 3g IV x 1. on Keppra 750 mg po bid. Neuro signed off. - Seizure precautions (6) Diabetes mellitus Status: Chronic Assessment and plan: - SSI. Accuchecks q6h - Cont low dose lantus. Current Visit: No Qualifiers: Diabetes mellitus type: type 1 Diabetes mellitus complication status: with kidney complications Diabetes mellitus complication detail: with chronic kidney disease Chronic kidney disease stage: stage 4 (severe) Qualified Code (s): E10.22 - Type 1 diabetes mellitus with diabetic chronic kidney disease; N18.4 - Chronic kidney disease, stage 4 (severe) (7) Chronic Systolic CHF - Status: Acute Assessment and plan: - s/p Albumin x 3 doses given severe hypoalbuminemia. - Cardiology assisting - Change IV lasix to per tube and cont metolazone. Check serial labs Current Visit: No (8) S/P Cardiac arrest Status: Acute Current Visit: Yes (9) Acute kidney injury superimposed on chronic kidney disease suspected stage 4 Status: Acute Assessment and plan: - Started HD 04/18/17. Renal following. Family has decided against continuing HD. Current Visit: Yes (10) Moderate protein calorie malnutrition - cont tubefeeds. nutrition following (11) Diarrhea-noninfectious- resolved - stool studies reviewed. (12) acute candidal urinary tract infection/ cystitis -Completed fluconazole x 7 days total DVT prophylaxis - SCDs. Has been holding heparin for days given bleeding serial labs. H and H so far stable I have signed an affidavit today stating that at this time, pt is clinically unable to make decisions re: his health or finances. I understand that the niece is currently seeking conservativeship. Risk Management, niece and niece's staff attorney were present. Dispo: awaiting Medicaid insurance to arrange placement. D/W case management 40 minutes spent with this patient. DC planning - Diagnostic Findings Procedure: Chest x-ray: report reviewed by me, image reviewed by me (Bilateral LL infiltrates)
[2017-05-05] MEDS ORDERED: FUROSEMIDE 40 MG/4 ML VIAL ONE (09:30)
[2017-05-05] MEDS: LANSOPRAZOLE ODT 30 MG TABLET PO SCH (09:31)
[2017-05-05] MEDS: metOLazone 5 MG TABLET PO SCH (09:31)
[2017-05-05] MEDS: METOPROLOL TARTRATE 25 MG TABLET PO SCH ×2 (09:31→22:02)
[2017-05-05] MEDS: DESITIN 4OZ/NYSTATIN 15 GRAM MIXTURE PASTE TOP SCH ×2 (09:32→22:04)
[2017-05-05] MEDS: FUROSEMIDE 40 MG/4 ML VIAL IV SCH (09:32)
[2017-05-05] MEDS: MINERAL OIL/PETROLATUM OPH OINT 3.5 GM TUBE BOTH EYES SCH ×3 (09:33→22:03)
[2017-05-05] MEDS: levETIRAcetam LIQUID 100 MG/ML 30 ML/BOTTLE PO SCH ×2 (09:33→22:02)
[2017-05-05] MEDS: BACITRACIN OINT 0.9 GM PACK TOP SCH (09:53)
[2017-05-05] MEDS ORDERED: FUROSEMIDE 40 MG/5 ML UDCUP PO SCH (16:00)
[2017-05-05] MEDS ORDERED: FUROSEMIDE 80 MG TABLET PO SCH (16:30)
--- NOTE | 2017-05-05 18:45 | Nephrology Progress Note ---
Nephrology - PN: Subj Interval history: No change in neurologic status. Blood pressure stable Exam (PN)-Nephrology - Vital Signs Vital signs: Period Temp Pulse Resp BP Sys/Post Pulse Ox Last 24 Hr 96.7 F-98.2 F 67-74 10-36 96-166/59-87 96-100 Exam: Gen.: Unresponsive Neck: Supple. No JVD or bruit. Cardiovascular: Regular rate and rhythm. No murmur rub or gallop Lungs: Clear Abdomen: Soft. Nontender. Positive bowel sounds. No organomegaly Extremities: 1+ edema - Lab 05/04/17 04:20 05/05/17 03:05 Most recent lab results ABG pH 7.491 (7.35-7.45) H 05/04/17 03:15 ABG pCO2 31.1 MM HG (35-48) L 05/04/17 03:15 ABG pO2 130.0 MM HG (80-95) H 05/04/17 03:15 ABG HCO3 25.2 MMOL/L (20-26) 05/04/17 03:15 ABG O2 Saturation 99.3 % (95-100) 05/04/17 03:15 Calcium 7.6 MG/DL (8.5-10.1) L 05/05/17 03:05 Phosphorus 4.6 MG/DL (2.5-4.9) 05/04/17 04:20 Magnesium 2.6 MG/DL (1.8-2.4) H 05/03/17 04:45 Assessment and Plan (1) Chronic kidney disease, stage IV (severe) Status: Chronic Assessment and plan: 61-year-old man admitted with: * CRF stage IV. Baseline creatinine mid threes * ARF on CRF. Last dialysis was 04/28/2017. Creatinine is slowly rising. * Nephrotic syndrome * Diabetes mellitus * Cardiomyopathy * Cardiac arrest. * Ventilatory failure. Post tracheostomy. Now on trach collar * Anoxic brain injury. No improvement in neurologic status. I discussed his clinical condition in detail with his niece who now has power of medical lab scientist. I explained that dialysis may prolong his life but will not improve his neurologic status. She wants to discuss this with other family members before making final decision on whether to discontinue dialysis. Dialysis is not urgently indicated today. Current Visit: Yes (2) Acute respiratory failure Status: Acute Current Visit: Yes Qualifiers: Respiratory failure complication: hypoxia Qualified Code(s): J96.01 - Acute respiratory failure with hypoxia (3) Cardiac arrest Status: Acute Current Visit: Yes (4) Cellulitis and abscess of face Status: Acute Current Visit: No (5) Cardiomyopathy Status: Chronic Current Visit: No (6) Diabetes Status: Chronic Current Visit: No Qualifiers: Diabetes mellitus type: type 1 Diabetes mellitus complication status: with kidney complications Diabetes mellitus complication detail: with chronic kidney disease Chronic kidney disease stage: stage 4 (severe) Qualified Code (s): E10.22 - Type 1 diabetes mellitus with diabetic chronic kidney disease; N18.4 - Chronic kidney disease, stage 4 (severe) (7) Nephrotic syndrome Status: Chronic Current Visit: No
[2017-05-05] MEDS: INSULIN GLARGINE 100 UNIT/ML SUBCUT SCH (22:03)
[2017-05-06] MEDS: INSULIN REGULAR 100 UNIT/ML SUBCUT SCH ×6 (00:37→21:40)
[2017-05-06] MEDS: ALBUTEROL/IPRATROPIUM 3 ML NEB RESP TX SCH ×4 (01:41→19:20)
--- NOTE | 2017-05-06 07:09 | Pulmonology Progress Note ---
Pulmonary - PN: Subj Interval history: This 61-year-old man had a cardiac arrest and has finished the [facility] protocol. He remains on the ventilator. He required higher settings of PEEP and FiO2 over the weekend but this morning his PO2 is 264 on 90% oxygen and 15 of PEEP. We can reduce both the FiO2 and PEEP and recheck ABGs this morning. He remains unresponsive. Apparently does have a bit of a gag reflex. Neurology is to review his case and see what they think about prognosis. Family has made him a DO NOT RESUSCITATE. 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 04/14/2017 patient remains unresponsive. Neurologic evaluation has indicated severe hypoxic brain injury. ABGs are improved. Chest x-ray is stable. Will reduce FiO2 and PEEP. Hopefully can start weaning trial soon. His renal function is getting worse with creatinine up to 6.9. Prognosis is grave. Continuing full support at present. 04/15/2017 patient remains unresponsive. ABGs a little better. Will reduce PEEP to 5 cm. Start weaning trials. Renal function getting worse by the day. Chest x-ray looks a little bit wet. Getting saline to try to maintain urine output. Prognosis grave. 04/16/2017 bloody secretions have come from his endotracheal tube. He has a right lower lobe infiltrate. He has grown Klebsiella from his sputum. He is on Zosyn for that already. Remains unresponsive. Prognosis is poor. Creatinine is 7.7. Patient has end-stage cardiomyopathy and is status post cardiac arrest. He has severe hypoxic brain injury. 04/17/17 ABGs look reasonable. Patient tolerating longer CPAP trials. Patient not able to defend his airway. There is some spontaneous movement but no purposeful movement and he does not respond to anything except painful stimulation. 04/18/2017 patient continues to be unresponsive. His eyes deviate to the right. No change in x-rays. ABGs look good. Creatinine 8.5. Continuing with CPAP trials, however patient not able to defend airway at this point. 04/19/2017 patient remains unresponsive. Eyes deviate to the right. He has some twitching in his left arm. I wonder if there is seizure activity. 04/20/2017 patient is doing some CPAP trials although his mental status is not good. He will require tracheostomy. 04/21/2017 patient was having some twitching activity yesterday. He was seen by Dr. Ulloa. Started on seizure medications. Still no signs of neurologic recovery. Patient is to have tracheostomy today. Consider LTAC transfer after that. 04/22/2017 patient had tracheostomy yesterday. Dr. Grajeda called me afterwards, stated that he saw something distally in the lower trachea. Plans were made for bronchoscopy this morning. X-ray this morning shows almost opacification of the left lung. He may have something in his left main bronchus. We plan to do bronchoscopy shortly. His mental status is unchanged. Likely will need to go to LTAC. 04/23/2017 x-ray this morning looks much better. He had some thrombi in the left main bronchus that we removed yesterday with bronchoscopy. Still has patchy bilateral infiltrates. Patient remains unresponsive. He is getting dialysis on mechanical ventilation. Apparently his insurance company has declined transfer to LTAC. Labs pending this morning. Continuing support. 04/24/2017 ABGs look good. Chest x-ray shows good aeration of both sides. He does have some basilar atelectasis. Weaning trials were held yesterday because of bleeding per tracheostomy. This seems better this morning. Patient gets a little heparin with his dialysis. He is on baby aspirin. I will hold the baby aspirin. Status post cardiac arrest with severe hypoxic brain injury. Also has Klebsiella pneumonia. Severe cardiomyopathy. Patient is a DO NOT RESUSCITATE but family wants to continue supportive care with mechanical ventilation and dialysis for now. 04/28/2017 patient tolerating some CPAP. Still no change in mental status. Cultures grew out gram-negative rods. Adding Levaquin to the tobramycin for Klebsiella and Acinetobacter 04/29/2017 patient is tolerating CPAP quite well. Will start on trach collar. Perhaps we can get him to full-time trach collar soon. Then could start looking for placement. 04/30/2017 patient did trach collar yesterday but tired out toward the end of it. We will continue those. He does have some flinching with painful stimulation otherwise remains unresponsive. 05/01/17 patient has been on trach collar for 24 hours now. Seems to be doing well with that. ABGs look good. Chest x-ray shows some mild bibasilar atelectasis. Left lung well expanded. Patient is afebrile. He will turn his head a bit to painful stimulus. Otherwise not responsive. Patient can be moved to the floor. May want to consider a long-term mechanical ventilation service such as [facility] or the new one in [place]. He has been turned down as far as coverage for an LTAC. 05/04/2017 patient has tolerated trach collar throughout the weekend. Being fed through PEG tube. Getting dialysis. Hematocrit is down to 21. Patient is not responsive. manager winter looking for placement. Inpatient hospice would be a consideration. Difficulty is in having the combination of dialysis and tracheostomy. For now continuing supportive care here. 05/05/2017 patient remains on trach collar. Creatinine a little over 5. It appears that dialysis is going to be discontinued. Patient prognosis is poor. Neurological situation has not changed. Patient will turn his head slightly to painful stimulus but does not respond to any verbal stimulus. No purposeful movements. 05/06/2017 patient remains unresponsive on trach collar. Oxygen saturations acceptable. Awaiting placement. It would be reasonable for patient to move to the [place] while awaiting placement. Patient is a DO NOT RESUSCITATE. Should be able to be adequately suctioned as needed on the floor. Exam (Progress Note) - Constitutional Vitals: Period Temp Pulse Resp BP Sys/Post Pulse Ox Last 24 Hr 96.0 F-97.5 F 67-82 10-32 92-166/54-87 92-100 Exam: Patient is unresponsive, except he does flinch to painful stimulus. Vital signs normal. He does have some respiratory effort and a cough reflex. Pupils small irregular and sluggish. Face symmetrical. Tracheostomy is in place. Respiratory rate in the mid teens on trach collar. Neck is supple. Chest reveals scattered rhonchi bilaterally but equal breath sounds today. Heart normal rate rhythm no murmurs. Abdomen soft no masses. Extremities no clubbing cyanosis edema. Little change from yesterday. Results - Labs CBC & BMP: 05/04/17 04:20 05/05/17 03:05 Lab Results: I have reviewed the past 24 hour labs Assessment and Plan (1) Acute respiratory failure Status: Acute Assessment and plan: Patient is on the ventilator 100% oxygen. ABGs look good at present. Will reduce FiO2 to 60%. Certainly cannot start weaning until we see what his mental status is like and that will be after [facility] protocol. 04/13/17 ABGs improved. Will reduce FiO2 and PEEP a little. Prognosis is poor. 04/14/2017 ABGs improved. We can reduce both FiO2 and PEEP. Hopefully one would get his PEEP down to 6 we can start weaning. 04/15/2017 ABGs are better. Reducing PEEP. Start weaning. Mental status will guide us with weaning. 04/16/2017 patient starting to do CPAP. Mental status will guide us where to go later. If we are to continue long-term mechanical ventilatory support and would likely need a tracheostomy in a few days. 04/17/2017 tolerating prolonged CPAP trials. It appears that we will likely be doing a tracheostomy next week if no other changes. I do not think he can defend his airway at this point. 04/18/2017 patient continues to tolerate CPAP, however he is not alert and unable to defend his airway at this point. 04/19/2017 continuing with CPAP trials. ABGs improved. Reduce FiO2. Progressing with CPAP. Likely will need tracheostomy 04/20/2017 patient tolerating CPAP trials but would not be able to defend his airway. Will proceed with ENT consult for tracheostomy. 04/21/2017 ABGs are pending but so far we have been able to relate him fairly easily. He is for tracheostomy today. Reasonable to continue ventilatory support for a couple of weeks. His family is seeing some motion that they are interpreting as purposeful. I have not seen any purposeful motion. He does have some seizure activity. 04/22/2017 patient has done okay with CPAP's prior to the tracheostomy. He required pressors after that. He has opacification of the left long. Hopefully we can clear that up with bronchoscopy. Suspect mucous plugging or thrombi in the left mainstem. 04/23/2017 respiratory failure following cardiac arrest with hypoxic brain injury. Klebsiella pneumonia. Left lung looks better radiographically. Apparently had thrombi in the left main bronchus due either to bleeding from the tracheostomy or pulmonary hemorrhage. CT was negative for pulmonary embolus. He has bibasilar pneumonia and pleural effusions. 04/24/2017 ABGs look good. Resume weaning trials today. 04/28/2017 continuing with weaning trials. Oxygen saturations acceptable. 04/29/2017 patient tolerated CPAP quite well. Start on trach collar. 04/30/2017 ABGs look good. Tolerating trach collar but tired after several hours. Will continue to try to increase times on trach collar. 05/01/17 patient tolerating trach collar for 24 hours. ABGs look good on 35% trach collar. 05/04/2017 patient now tolerating trach collar full-time. PO2 is 130 on 35% trach collar. Will reduce to 30%. 05/05/2017 patient remains on trach collar. Oxygen saturation acceptable with 30 % trach collar. 05/06/2017 patient now breathing adequately. Requiring low flow oxygen. Suctioning as needed as he does not do well clearing his airway. Current Visit: Yes Qualifiers: Respiratory failure complication: hypoxia Qualified Code(s): J96.01 - Acute respiratory failure with hypoxia (2) Cardiac arrest Status: Acute Assessment and plan: Patient had a cardiac arrest last night. He has known severe cardiomyopathy. Did not have any known electrolyte imbalance. Does have chronic renal failure with a creatinine now around 5. He would be at increased risk for a pulmonary embolism. 04/13/17 it appears that he has had significant brain injury. Await neurologic evaluation. 04/14/2017 and apparent severe hypoxic brain injury. See neurology note 04/15/2017 apparent severe hypoxic brain injury. 04/16/2017 continues to exhibit signs of severe hypoxic brain injury. 04/17/2017 severe brain injury. 04/18/2017 again continues to show signs of hypoxic brain injury. Responds to painful stimulus. Does not follow with his eyes. Does not respond to questions. Eyes deviate to the right. 04/19/2017 hypoxic brain injury. Patient is turning his head at times and moving all little but not in response to requests. Does not appear to be purposeful. 04/20/2017 patient has a severe cardiomyopathy. Has severe hypoxic brain injury post cardiac arrest. His family wants us to continue full support. Will need tracheostomy to wean off ventilator. He is not able to defend his airway. 04/21/2017 severe cardiomyopathy hypoxic brain injury. We had considered pulmonary embolus before. He is off anticoagulants now because of some pulmonary hemorrhage. Will obtain a CT PE protocol once he gets the trach done. 04/22/17 hypoxic brain injury. Cardiac arrest related to his cardiomyopathy. 04/23/2017 status post cardiac arrest probably due to his cardiomyopathy with arrhythmias. Hypoxic brain injury persists. 04/24/2017 has severe cardiomyopathy with subsequent arrest. Hypoxic brain injury. Prognosis is poor. 04/28/2017 severe hypoxic brain injury. 04/29/2017 severe hypoxic brain injury due to cardiac arrest from severe cardiomyopathy. Prognosis remains poor 04/30/2017 severe hypoxic brain injury symptoms persist. 05/01/17 again has severe hypoxic brain injury. 05/04/2017 severe hypoxic brain injury secondary to cardiac arrest, caused by severe cardiomyopathy. 05/05/2017 severe hypoxic brain injury. No improvement. 05/06/2017 severe hypoxic brain injury due to cardiac arrest. No change. Current Visit: Yes (3) Chronic renal insufficiency Status: Chronic Assessment and plan: Creatinine has gone up from about 3.7-5 over the last few days. 04/13/17 creatinine up to 5.9 04/14/2017 creatinine is up to 6.9. Will start on some nasogastric feedings and IV fluids. 04/15/2017 creatinine up to 7.5. Defer to nephrology 04/16/2017 creatinine is 7.7. Perhaps it's levelling off. 04/17/2017 creatinine 8.1. Renal following 04/18/2017 creatinine 8.5 now. Bicarb level is 19. Potassium 4.8. He is making urine. 04/19/2017 patient started on dialysis yesterday. Chest x-ray looks a little bit less wet. 04/20/2017 defer to nephrology. He has been started on dialysis and his x-ray is looking a little better. 04/21/2017 continuing dialysis. 04/22/2017 getting dialysis. 04/23/2017 getting dialysis regularly. 04/24/2017 acute renal failure being treated with dialysis. He is due for dialysis today. 04/28/2017 followed by renal with dialysis as required. 04/29/2017 getting dialysis as required 04/30/2017 getting dialysis as required 05/01/17 continuing with dialysis. 05/04/2017 continuing with dialysis at this point. 05/05/2017 nephrology and primary service have discussed this with the family. Apparently dialysis will be discontinued. 05/06/2017 nephrology has discussed case with the family. Holding dialysis at present. Decision on dialysis going forward to be made after further discussion. Current Visit: Yes (4) Congestive heart failure Status: Chronic Assessment and plan: Systolic acute on chronic congestive failure due to severe cardiomyopathy. His troponins are not elevated so it does not appear that he had a myocardial infarction as the cause of his arrest last night. 04/13/17 x-ray shows increased interstitial markings consistent with congestive heart failure, but not brigida pulmonary edema. 04/14/2017 does not appear to be in pulmonary edema. 04/15/2017 appears to be developing pulmonary edema. However ABGs are better. IV fluids started yesterday by cardiology. 04/16/2017 this lobe infiltrate. Difficult to tell him what this is heart failure, which may be the Klebsiella pneumonia. He is on Zosyn. 04/17/2017 chest x-ray compatible with mild congestive heart failure. Also getting antibiotics for Klebsiella pneumonia 04/18/2017 severe cardiomyopathy. 04/19/2017 seems to be a little better after dialysis. 04/20/2017 again chest x-ray is a little better. 04/21/2017 improved with dialysis. 04/22/2017 severe cardiomyopathy. Does not appear to be in failure at present. 04/23/2017 severe cardiomyopathy with bilateral pleural effusions. 04/24/2017 severe cardiomyopathy. Bilateral modest pleural effusions and basilar atelectasis. 04/28/2017 severe cardiomyopathy, probably mild failure at this point. 04/29/2017 this appears to be better controlled. 04/30/2017 has a right pleural effusion. May be a little ahead on fluid. Defer to dialysis/renal. 05/01/17 has a cardiomyopathy. Congestive heart failure symptoms primarily controlled by dialysis. 05/04/2017 end-stage cardiomyopathy. X-ray looks a little wet. Due for dialysis. 05/06/2017 chronic congestive heart failure due to end-stage cardiomyopathy. Current Visit: Yes Qualifiers: Congestive heart failure type: unspecified congestive heart failure type Congestive heart failure chronicity: acute on chronic Qualified Code(s): I50.9 - Heart failure, unspecified (5) Cellulitis and abscess of face Status: Acute Assessment and plan: He has actually completed full course of treatment for the cellulitis. We need to be careful about vancomycin with his renal failure. Defer to ENT and nephrology on antibiotics and dosing. Current Visit: No (6) Nephrotic syndrome Status: Chronic Assessment and plan: He has peripheral edema. Low serum protein. Increased risk for DVT/PTED. Current Visit: No (7) Pulmonary embolism Status: Ruled-out Assessment and plan: Perfusion lung scan suggestive of pulmonary embolism. Unable to obtain PE protocol CT scan due to renal failure. Patient is on empiric heparin infusion. 04/14/2017 continuing heparin for suspected pulmonary thromboembolic disease 04/15/2017 patient is on heparin. 04/16/2017 his perfusion lung scan was suggestive of pulmonary embolism. We do not have a definitive diagnosis. He has had some pulmonary hemorrhage. I stop the heparin yesterday. Difficult situation. 04/17/2017 this is not a definitive diagnosis which was suspected at the time of his arrest. He had nonspecifically abnormal VQ lung scan. We did not do a CT PE protocol because of the renal failure. His heparin has been held because of bloody pulmonary secretions. Continue to monitor. 04/18/2017 will put on subcu heparin. 04/19/2017 never clear-cut about whether he had an embolus. He had some pulmonary hemorrhage when fully anticoagulated. We now have all subcu heparin prophylactic doses. Now that he is on dialysis we can do a CT PE protocol and will consider that tomorrow. 04/20/2017 this is not a definite diagnosis. We are using DVT prophylaxis at present. It will be worthwhile at some point to get CT PE protocol now that he is on dialysis. 04/21/2017 this is a questionable diagnosis. Plan CT PE protocol either later today or tomorrow. 04/22/2017 again need to do a CT PE protocol. Likely will do that later today. 04/23/2017 pulmonary embolus has been ruled out. 05/01/17 patient does NOT have a pulmonary embolism. 05/06/2017 again pulmonary embolism has been ruled out. Current Visit: Yes
--- NOTE | 2017-05-06 07:44 | Hospitalist Progress Note ---
Hospitalist: Subjective Interval history: No significant overnight events noted/reported. Pt nonverbal. Exam - Constitutional Vitals: Period Temp Pulse Resp BP Sys/Post Pulse Ox Last 24 Hr 96.0 F-97.5 F 67-82 10-32 92-166/54-87 92-100 Exam: GEN: Chronically ill appearing, opens eyes but doesn't follow commands, sedated on the vent NECK: trach in place on TC CV: RRR no M LUNGS: clear on right, diminished on the left, nonlabored ABD: Soft, hypoactive bowel sounds. No masses or HSM appreciated. +PEG EXT: warm no c/c/no edema - Expanded ENT Exam Mouth exam: Present: moist Throat exam: Present: normal inspection Results - Labs CBC & BMP: 05/04/17 04:20 05/05/17 03:05 - Impressions (1) Acute Respiratory failure due to with Klebsiella PNA, Acinetobacter and Fina and left main stem thrombus- improved. Now respiratory failure is due to neurological compromise/ anoxic brain injury - s/p thrombectomy LM stem bronchus, ELLEN and LLL via FOB 04/22 Status: Acute Assessment and plan: - Pulmonary managing trach collar - Trach 04/21 by ENT - Completed Zosyn, Fluconazole and inhaled MOLINA 300mg BID, bronchodilators, vent support/ oxygen - CT of the chest on 04/22/2017 was negative for PE - CXR 04/25 shows complete white out of left lung Current Visit: No Qualifiers: Chronicity: acute (2) Coagulapathy with acute blood loss anemia- resolved - s/p FFP, cryoprecipitate, vitamin K and protamine and PRBCs. No evidence of DIC and HIT antibody was negative. Holding all blood thinners, NSAIDS, ASA. (3) Left lung density- improved - ? fluid vs. blood vs. other (4) Anoxic brain injury- unchanged Status: Acute Current Visit: Yes - Neurology has seen and suspects poor prognosis for recovery. - Monitor neuro status (5) Suspected seizure disorder - s/p Ativan 3g IV x 1. on Keppra 750 mg po bid. Neuro signed off. - Seizure precautions (6) Diabetes mellitus Status: Chronic Assessment and plan: - SSI. Accuchecks q6h - Cont low dose lantus. Current Visit: No Qualifiers: Diabetes mellitus type: type 1 Diabetes mellitus complication status: with kidney complications Diabetes mellitus complication detail: with chronic kidney disease Chronic kidney disease stage: stage 4 (severe) Qualified Code (s): E10.22 - Type 1 diabetes mellitus with diabetic chronic kidney disease; N18.4 - Chronic kidney disease, stage 4 (severe) (7) Chronic Systolic CHF - Status: Acute Assessment and plan: - s/p Albumin x 3 doses given severe hypoalbuminemia. - Cardiology assisting - on Lasix per tube and cont metolazone. Check serial labs Current Visit: No (8) S/P Cardiac arrest Status: Acute Current Visit: Yes (9) Acute kidney injury superimposed on chronic kidney disease suspected stage 4 Status: Acute Assessment and plan: - Started HD 04/18/17. Renal following and discussing with niece and family re: HD. Awaiting family final decision. Current Visit: Yes (10) Moderate protein calorie malnutrition - cont tubefeeds. nutrition following (11) Diarrhea-noninfectious - stool studies reviewed. FMT in place. Once removed, can likely try questran or Fibersol to increase bulk of stool. (12) acute candidal urinary tract infection/ cystitis -Completed Fluconazole x 7 days total DVT prophylaxis - SCDs. No anticoagulation given severe bleeding. H and H so far stable I have signed an affidavit 05/05 stating that at this time, pt is clinically unable to make decisions re: his health or finances. I understand that the niece is currently seeking conservatorship. Risk Management, niece and niece's deputy prosecuting attorney were present. Dispo: awaiting Medicaid insurance to arrange placement. D/W case management 34 minutes spent with this patient. DC planning
[2017-05-06] MEDS: LANSOPRAZOLE ODT 30 MG TABLET PO SCH (09:30)
[2017-05-06] MEDS: METOPROLOL TARTRATE 25 MG TABLET PO SCH ×2 (09:30→21:39)
[2017-05-06] MEDS: metOLazone 5 MG TABLET PO SCH (09:32)
[2017-05-06] MEDS: hydrALAZINE 25 MG TABLET PO PRN (09:32)
[2017-05-06] MEDS: BACITRACIN OINT 0.9 GM PACK TOP SCH (09:32)
[2017-05-06] MEDS: levETIRAcetam LIQUID 100 MG/ML 30 ML/BOTTLE PO SCH ×2 (09:36→21:40)
[2017-05-06] MEDS: MINERAL OIL/PETROLATUM OPH OINT 3.5 GM TUBE BOTH EYES SCH ×3 (09:37→21:40)
[2017-05-06] MEDS: DESITIN 4OZ/NYSTATIN 15 GRAM MIXTURE PASTE TOP SCH ×2 (09:37→21:39)
--- NOTE | 2017-05-06 11:13 | Nephrology Progress Note ---
Nephrology - PN: Subj Interval history: He remains unresponsive. Blood pressure is stable Exam (PN)-Nephrology - Vital Signs Vital signs: Period Temp Pulse Resp BP Sys/Post Pulse Ox Last 24 Hr 96.0 F-97.1 F 67-82 10-27 92-127/54-87 92-100 Exam: Gen.: Unresponsive Neck: Supple. No JVD or bruit. Cardiovascular: Regular rate and rhythm. No murmur rub or gallop Lungs: Clear Abdomen: Soft. Nontender. Positive bowel sounds. No organomegaly Extremities: Trace edema - Lab 05/04/17 04:20 05/05/17 03:05 Most recent lab results ABG pH 7.491 (7.35-7.45) H 05/04/17 03:15 ABG pCO2 31.1 MM HG (35-48) L 05/04/17 03:15 ABG pO2 130.0 MM HG (80-95) H 05/04/17 03:15 ABG HCO3 25.2 MMOL/L (20-26) 05/04/17 03:15 ABG O2 Saturation 99.3 % (95-100) 05/04/17 03:15 Calcium 7.6 MG/DL (8.5-10.1) L 05/05/17 03:05 Phosphorus 4.6 MG/DL (2.5-4.9) 05/04/17 04:20 Magnesium 2.6 MG/DL (1.8-2.4) H 05/03/17 04:45 Assessment and Plan (1) Chronic kidney disease, stage IV (severe) Status: Chronic Assessment and plan: 61-year-old man admitted with: * CRF stage IV. Baseline creatinine mid threes * ARF on CRF. Last dialysis was 04/28/2017. Creatinine is slowly rising. Awaiting decision from family concerning dialysis. * Nephrotic syndrome * Diabetes mellitus * Cardiomyopathy * Cardiac arrest. * Ventilatory failure. Post tracheostomy. Now on trach collar * Anoxic brain injury. No improvement in neurologic status. Current Visit: Yes (2) Acute respiratory failure Status: Acute Current Visit: Yes Qualifiers: Respiratory failure complication: hypoxia Qualified Code(s): J96.01 - Acute respiratory failure with hypoxia (3) Cardiac arrest Status: Acute Current Visit: Yes (4) Cellulitis and abscess of face Status: Acute Current Visit: No (5) Cardiomyopathy Status: Chronic Current Visit: No (6) Diabetes Status: Chronic Current Visit: No Qualifiers: Diabetes mellitus type: type 1 Diabetes mellitus complication status: with kidney complications Diabetes mellitus complication detail: with chronic kidney disease Chronic kidney disease stage: stage 4 (severe) Qualified Code (s): E10.22 - Type 1 diabetes mellitus with diabetic chronic kidney disease; N18.4 - Chronic kidney disease, stage 4 (severe) (7) Nephrotic syndrome Status: Chronic Current Visit: No
[2017-05-06] MEDS: FUROSEMIDE 40 MG/5 ML UDCUP PO SCH ×2 (12:20→16:00)
[2017-05-06] MEDS: INSULIN GLARGINE 100 UNIT/ML SUBCUT SCH (21:40)
[2017-05-07] MEDS: INSULIN REGULAR 100 UNIT/ML SUBCUT SCH ×6 (00:20→19:11)
[2017-05-07] MEDS: ALBUTEROL/IPRATROPIUM 3 ML NEB RESP TX SCH ×3 (00:49→19:46)
[2017-05-07 04:53] LABS: Basophils % 0.2 % (0.0-0.8); Eosinophils # 0.4 10*3/uL (0.0-0.87); Eosinophils % 7.9 % (0.00-10.9); Hematocrit 21.3 VOL% (42.0-52.0); Hemoglobin 7.4 GM/DL (14.0-18.0); Immature Granulocytes % 0.2 %; Immature Granulocytes Absolute 0.01 #; Lymphocytes # 0.7 10*3/uL (1.4-4.0); Lymphocytes % 14.6 % (21.2-54.2); Mean Corpuscular HGB Conc 34.7 GM/DL (32-36); Mean Corpuscular Hemoglobin 29 PG (27-34); Mean Corpuscular Volume 83.2 FL (87-102); Mean Platelet Volume 11.5 FL (9.6-12.0); Monocytes # 0.3 10*3/uL (0.11-0.8); Monocytes % 5.3 % (1.7-12.7); NRBC # 0.02 10*3/uL; Neutrophils # 3.5 10*3/uL (1.4-7.4); Neutrophils % 71.8 % (38.7-73.9); Platelet Count 206 T/CUMM (130-400); Red Blood Count 2.56 MC/CUMM (3.8-5.5); Red Cell Distribution Width 16.9 % (9.3-17.3); White Blood Count 4.9 T/CUMM (4-12)
[2017-05-07 05:23] LABS: Calcium 7.7 MG/DL (8.5-10.1); Osmolality,Calculated 283.6 MOS/KG (273-304); Potassium 3.5 MMOL/L (3.5-5.1); Prealbumin 15.4 MG/DL (20-40)
--- NOTE | 2017-05-07 07:16 | Pulmonology Progress Note ---
Pulmonary - PN: Subj Interval history: This 61-year-old man had a cardiac arrest and has finished the [facility] protocol. He remains on the ventilator. He required higher settings of PEEP and FiO2 over the weekend but this morning his PO2 is 264 on 90% oxygen and 15 of PEEP. We can reduce both the FiO2 and PEEP and recheck ABGs this morning. He remains unresponsive. Apparently does have a bit of a gag reflex. Neurology is to review his case and see what they think about prognosis. Family has made him a DO NOT RESUSCITATE. 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 04/14/2017 patient remains unresponsive. Neurologic evaluation has indicated severe hypoxic brain injury. ABGs are improved. Chest x-ray is stable. Will reduce FiO2 and PEEP. Hopefully can start weaning trial soon. His renal function is getting worse with creatinine up to 6.9. Prognosis is grave. Continuing full support at present. 04/15/2017 patient remains unresponsive. ABGs a little better. Will reduce PEEP to 5 cm. Start weaning trials. Renal function getting worse by the day. Chest x-ray looks a little bit wet. Getting saline to try to maintain urine output. Prognosis grave. 04/16/2017 bloody secretions have come from his endotracheal tube. He has a right lower lobe infiltrate. He has grown Klebsiella from his sputum. He is on Zosyn for that already. Remains unresponsive. Prognosis is poor. Creatinine is 7.7. Patient has end-stage cardiomyopathy and is status post cardiac arrest. He has severe hypoxic brain injury. 04/17/17 ABGs look reasonable. Patient tolerating longer CPAP trials. Patient not able to defend his airway. There is some spontaneous movement but no purposeful movement and he does not respond to anything except painful stimulation. 04/18/2017 patient continues to be unresponsive. His eyes deviate to the right. No change in x-rays. ABGs look good. Creatinine 8.5. Continuing with CPAP trials, however patient not able to defend airway at this point. 04/19/2017 patient remains unresponsive. Eyes deviate to the right. He has some twitching in his left arm. I wonder if there is seizure activity. 04/20/2017 patient is doing some CPAP trials although his mental status is not good. He will require tracheostomy. 04/21/2017 patient was having some twitching activity yesterday. He was seen by Dr. Ulloa. Started on seizure medications. Still no signs of neurologic recovery. Patient is to have tracheostomy today. Consider LTAC transfer after that. 04/22/2017 patient had tracheostomy yesterday. Dr. Grajeda called me afterwards, stated that he saw something distally in the lower trachea. Plans were made for bronchoscopy this morning. X-ray this morning shows almost opacification of the left lung. He may have something in his left main bronchus. We plan to do bronchoscopy shortly. His mental status is unchanged. Likely will need to go to LTAC. 04/23/2017 x-ray this morning looks much better. He had some thrombi in the left main bronchus that we removed yesterday with bronchoscopy. Still has patchy bilateral infiltrates. Patient remains unresponsive. He is getting dialysis on mechanical ventilation. Apparently his insurance company has declined transfer to LTAC. Labs pending this morning. Continuing support. 04/24/2017 ABGs look good. Chest x-ray shows good aeration of both sides. He does have some basilar atelectasis. Weaning trials were held yesterday because of bleeding per tracheostomy. This seems better this morning. Patient gets a little heparin with his dialysis. He is on baby aspirin. I will hold the baby aspirin. Status post cardiac arrest with severe hypoxic brain injury. Also has Klebsiella pneumonia. Severe cardiomyopathy. Patient is a DO NOT RESUSCITATE but family wants to continue supportive care with mechanical ventilation and dialysis for now. 04/28/2017 patient tolerating some CPAP. Still no change in mental status. Cultures grew out gram-negative rods. Adding Levaquin to the tobramycin for Klebsiella and Acinetobacter 04/29/2017 patient is tolerating CPAP quite well. Will start on trach collar. Perhaps we can get him to full-time trach collar soon. Then could start looking for placement. 04/30/2017 patient did trach collar yesterday but tired out toward the end of it. We will continue those. He does have some flinching with painful stimulation otherwise remains unresponsive. 05/01/17 patient has been on trach collar for 24 hours now. Seems to be doing well with that. ABGs look good. Chest x-ray shows some mild bibasilar atelectasis. Left lung well expanded. Patient is afebrile. He will turn his head a bit to painful stimulus. Otherwise not responsive. Patient can be moved to the floor. May want to consider a long-term mechanical ventilation service such as [facility] or the new one in [place]. He has been turned down as far as coverage for an LTAC. 05/04/2017 patient has tolerated trach collar throughout the weekend. Being fed through PEG tube. Getting dialysis. Hematocrit is down to 21. Patient is not responsive. distribution manager looking for placement. Inpatient hospice would be a consideration. Difficulty is in having the combination of dialysis and tracheostomy. For now continuing supportive care here. 05/05/2017 patient remains on trach collar. Creatinine a little over 5. It appears that dialysis is going to be discontinued. Patient prognosis is poor. Neurological situation has not changed. Patient will turn his head slightly to painful stimulus but does not respond to any verbal stimulus. No purposeful movements. 05/06/2017 patient remains unresponsive on trach collar. Oxygen saturations acceptable. Awaiting placement. It would be reasonable for patient to move to the [place] while awaiting placement. Patient is a DO NOT RESUSCITATE. Should be able to be adequately suctioned as needed on the floor. 05/07/2017 patient tolerating trach collar without difficulty. He is a DO NOT RESUSCITATE and there are no plans to put him back on the ventilator. Presently holding dialysis. Patient could be moved to the floor. His prognosis is poor. Exam (Progress Note) - Constitutional Vitals: Period Temp Pulse Resp BP Sys/Post Pulse Ox Last 24 Hr 96.6 F-97.8 F 60-83 12-24 110-137/65-89 94-100 Exam: Patient is unresponsive, except he does flinch to painful stimulus. Vital signs normal. He does have normal respiratory effort and a cough reflex. Pupils small irregular and sluggish. Face symmetrical. Tracheostomy is in place. Respiratory rate in the mid teens on trach collar. Neck is supple. Chest reveals scattered rhonchi bilaterally but equal breath sounds today. Heart normal rate rhythm no murmurs. Abdomen soft no masses. Extremities no clubbing cyanosis edema. Results - Labs CBC & BMP: 05/07/17 04:10 05/07/17 04:10 Lab Results: I have reviewed the past 24 hour labs - Diagnostic Findings Procedure: Chest x-ray: image reviewed by me (Minimal infiltrates left lower lobe. Overall improved.) Assessment and Plan (1) Acute respiratory failure Status: Acute Assessment and plan: Patient is on the ventilator 100% oxygen. ABGs look good at present. Will reduce FiO2 to 60%. Certainly cannot start weaning until we see what his mental status is like and that will be after [place] protocol. 04/13/17 ABGs improved. Will reduce FiO2 and PEEP a little. Prognosis is poor. 04/14/2017 ABGs improved. We can reduce both FiO2 and PEEP. Hopefully one would get his PEEP down to 6 we can start weaning. 04/15/2017 ABGs are better. Reducing PEEP. Start weaning. Mental status will guide us with weaning. 04/16/2017 patient starting to do CPAP. Mental status will guide us where to go later. If we are to continue long-term mechanical ventilatory support and would likely need a tracheostomy in a few days. 04/17/2017 tolerating prolonged CPAP trials. It appears that we will likely be doing a tracheostomy next week if no other changes. I do not think he can defend his airway at this point. 04/18/2017 patient continues to tolerate CPAP, however he is not alert and unable to defend his airway at this point. 04/19/2017 continuing with CPAP trials. ABGs improved. Reduce FiO2. Progressing with CPAP. Likely will need tracheostomy 04/20/2017 patient tolerating CPAP trials but would not be able to defend his airway. Will proceed with ENT consult for tracheostomy. 04/21/2017 ABGs are pending but so far we have been able to relate him fairly easily. He is for tracheostomy today. Reasonable to continue ventilatory support for a couple of weeks. His family is seeing some motion that they are interpreting as purposeful. I have not seen any purposeful motion. He does have some seizure activity. 04/22/2017 patient has done okay with CPAP's prior to the tracheostomy. He required pressors after that. He has opacification of the left long. Hopefully we can clear that up with bronchoscopy. Suspect mucous plugging or thrombi in the left mainstem. 04/23/2017 respiratory failure following cardiac arrest with hypoxic brain injury. Klebsiella pneumonia. Left lung looks better radiographically. Apparently had thrombi in the left main bronchus due either to bleeding from the tracheostomy or pulmonary hemorrhage. CT was negative for pulmonary embolus. He has bibasilar pneumonia and pleural effusions. 04/24/2017 ABGs look good. Resume weaning trials today. 04/28/2017 continuing with weaning trials. Oxygen saturations acceptable. 04/29/2017 patient tolerated CPAP quite well. Start on trach collar. 04/30/2017 ABGs look good. Tolerating trach collar but tired after several hours. Will continue to try to increase times on trach collar. 05/01/17 patient tolerating trach collar for 24 hours. ABGs look good on 35% trach collar. 05/04/2017 patient now tolerating trach collar full-time. PO2 is 130 on 35% trach collar. Will reduce to 30%. 05/05/2017 patient remains on trach collar. Oxygen saturation acceptable with 30 % trach collar. 05/06/2017 patient now breathing adequately. Requiring low flow oxygen. Suctioning as needed as he does not do well clearing his airway. 05/07/2017 acute respiratory failure has resolved. Still requiring oxygen. Require tracheostomy for suctioning. Current Visit: Yes Qualifiers: Respiratory failure complication: hypoxia Qualified Code(s): J96.01 - Acute respiratory failure with hypoxia (2) Cardiac arrest Status: Acute Assessment and plan: Patient had a cardiac arrest last night. He has known severe cardiomyopathy. Did not have any known electrolyte imbalance. Does have chronic renal failure with a creatinine now around 5. He would be at increased risk for a pulmonary embolism. 04/13/17 it appears that he has had significant brain injury. Await neurologic evaluation. 04/14/2017 and apparent severe hypoxic brain injury. See neurology note 04/15/2017 apparent severe hypoxic brain injury. 04/16/2017 continues to exhibit signs of severe hypoxic brain injury. 04/17/2017 severe brain injury. 04/18/2017 again continues to show signs of hypoxic brain injury. Responds to painful stimulus. Does not follow with his eyes. Does not respond to questions. Eyes deviate to the right. 04/19/2017 hypoxic brain injury. Patient is turning his head at times and moving all little but not in response to requests. Does not appear to be purposeful. 04/20/2017 patient has a severe cardiomyopathy. Has severe hypoxic brain injury post cardiac arrest. His family wants us to continue full support. Will need tracheostomy to wean off ventilator. He is not able to defend his airway. 04/21/2017 severe cardiomyopathy hypoxic brain injury. We had considered pulmonary embolus before. He is off anticoagulants now because of some pulmonary hemorrhage. Will obtain a CT PE protocol once he gets the trach done. 04/22/17 hypoxic brain injury. Cardiac arrest related to his cardiomyopathy. 04/23/2017 status post cardiac arrest probably due to his cardiomyopathy with arrhythmias. Hypoxic brain injury persists. 04/24/2017 has severe cardiomyopathy with subsequent arrest. Hypoxic brain injury. Prognosis is poor. 04/28/2017 severe hypoxic brain injury. 04/29/2017 severe hypoxic brain injury due to cardiac arrest from severe cardiomyopathy. Prognosis remains poor 04/30/2017 severe hypoxic brain injury symptoms persist. 05/01/17 again has severe hypoxic brain injury. 05/04/2017 severe hypoxic brain injury secondary to cardiac arrest, caused by severe cardiomyopathy. 05/05/2017 severe hypoxic brain injury. No improvement. 05/06/2017 severe hypoxic brain injury due to cardiac arrest. No change. 05/07/17 hypoxic brain injury. No change in mental status. Current Visit: Yes (3) Chronic renal insufficiency Status: Chronic Assessment and plan: Creatinine has gone up from about 3.7-5 over the last few days. 04/13/17 creatinine up to 5.9 04/14/2017 creatinine is up to 6.9. Will start on some nasogastric feedings and IV fluids. 04/15/2017 creatinine up to 7.5. Defer to nephrology 04/16/2017 creatinine is 7.7. Perhaps it's levelling off. 04/17/2017 creatinine 8.1. Renal following 04/18/2017 creatinine 8.5 now. Bicarb level is 19. Potassium 4.8. He is making urine. 04/19/2017 patient started on dialysis yesterday. Chest x-ray looks a little bit less wet. 04/20/2017 defer to nephrology. He has been started on dialysis and his x-ray is looking a little better. 04/21/2017 continuing dialysis. 04/22/2017 getting dialysis. 04/23/2017 getting dialysis regularly. 04/24/2017 acute renal failure being treated with dialysis. He is due for dialysis today. 04/28/2017 followed by renal with dialysis as required. 04/29/2017 getting dialysis as required 04/30/2017 getting dialysis as required 05/01/17 continuing with dialysis. 05/04/2017 continuing with dialysis at this point. 05/05/2017 nephrology and primary service have discussed this with the family. Apparently dialysis will be discontinued. 05/06/2017 nephrology has discussed case with the family. Holding dialysis at present. Decision on dialysis going forward to be made after further discussion. 05/07/2017 dialysis being held with the present time. Current Visit: Yes (4) Congestive heart failure Status: Chronic Assessment and plan: Systolic acute on chronic congestive failure due to severe cardiomyopathy. His troponins are not elevated so it does not appear that he had a myocardial infarction as the cause of his arrest last night. 04/13/17 x-ray shows increased interstitial markings consistent with congestive heart failure, but not brigida pulmonary edema. 04/14/2017 does not appear to be in pulmonary edema. 04/15/2017 appears to be developing pulmonary edema. However ABGs are better. IV fluids started yesterday by cardiology. 04/16/2017 this lobe infiltrate. Difficult to tell him what this is heart failure, which may be the Klebsiella pneumonia. He is on Zosyn. 04/17/2017 chest x-ray compatible with mild congestive heart failure. Also getting antibiotics for Klebsiella pneumonia 04/18/2017 severe cardiomyopathy. 04/19/2017 seems to be a little better after dialysis. 04/20/2017 again chest x-ray is a little better. 04/21/2017 improved with dialysis. 04/22/2017 severe cardiomyopathy. Does not appear to be in failure at present. 04/23/2017 severe cardiomyopathy with bilateral pleural effusions. 04/24/2017 severe cardiomyopathy. Bilateral modest pleural effusions and basilar atelectasis. 04/28/2017 severe cardiomyopathy, probably mild failure at this point. 04/29/2017 this appears to be better controlled. 04/30/2017 has a right pleural effusion. May be a little ahead on fluid. Defer to dialysis/renal. 05/01/17 has a cardiomyopathy. Congestive heart failure symptoms primarily controlled by dialysis. 05/04/2017 end-stage cardiomyopathy. X-ray looks a little wet. Due for dialysis. 05/06/2017 chronic congestive heart failure due to end-stage cardiomyopathy. 05/07/2017 severe cardiomyopathy. Is not in brigida failure at present. Current Visit: Yes Qualifiers: Congestive heart failure type: unspecified congestive heart failure type Congestive heart failure chronicity: acute on chronic Qualified Code(s): I50.9 - Heart failure, unspecified (5) Cellulitis and abscess of face Status: Acute Assessment and plan: He has actually completed full course of treatment for the cellulitis. We need to be careful about vancomycin with his renal failure. Defer to ENT and nephrology on antibiotics and dosing. Current Visit: No (6) Nephrotic syndrome Status: Chronic Assessment and plan: He has peripheral edema. Low serum protein. Increased risk for DVT/PTED. Current Visit: No (7) Pulmonary embolism Status: Ruled-out Assessment and plan: Perfusion lung scan suggestive of pulmonary embolism. Unable to obtain PE protocol CT scan due to renal failure. Patient is on empiric heparin infusion. 04/14/2017 continuing heparin for suspected pulmonary thromboembolic disease 04/15/2017 patient is on heparin. 04/16/2017 his perfusion lung scan was suggestive of pulmonary embolism. We do not have a definitive diagnosis. He has had some pulmonary hemorrhage. I stop the heparin yesterday. Difficult situation. 04/17/2017 this is not a definitive diagnosis which was suspected at the time of his arrest. He had nonspecifically abnormal VQ lung scan. We did not do a CT PE protocol because of the renal failure. His heparin has been held because of bloody pulmonary secretions. Continue to monitor. 04/18/2017 will put on subcu heparin. 04/19/2017 never clear-cut about whether he had an embolus. He had some pulmonary hemorrhage when fully anticoagulated. We now have all subcu heparin prophylactic doses. Now that he is on dialysis we can do a CT PE protocol and will consider that tomorrow. 04/20/2017 this is not a definite diagnosis. We are using DVT prophylaxis at present. It will be worthwhile at some point to get CT PE protocol now that he is on dialysis. 04/21/2017 this is a questionable diagnosis. Plan CT PE protocol either later today or tomorrow. 04/22/2017 again need to do a CT PE protocol. Likely will do that later today. 04/23/2017 pulmonary embolus has been ruled out. 05/01/17 patient does NOT have a pulmonary embolism. 05/06/2017 again pulmonary embolism has been ruled out. Current Visit: Yes
--- NOTE | 2017-05-07 07:34 | Hospitalist Progress Note ---
Hospitalist: Subjective Interval history: No changes. No significant overnight events. Family is discussing which helped call regarding possible transfer today. Exam - Constitutional Vitals: Period Temp Pulse Resp BP Sys/Post Pulse Ox Last 24 Hr 96.6 F-97.8 F 60-83 12-24 99-137/55-89 94-100 Exam: GEN: Chronically ill appearing, opens eyes but doesn't follow commands, sedated on the vent NECK: trach in place on TC CV: RRR no M LUNGS: clear on right, diminished on the left, nonlabored ABD: Soft, hypoactive bowel sounds. No masses or HSM appreciated. +PEG EXT: warm no c/c/no edema - Expanded ENT Exam Mouth exam: Present: moist Throat exam: Present: normal inspection Results - Labs CBC & BMP: 05/07/17 04:10 05/07/17 04:10 - Impressions (1) Acute Respiratory failure due to with Klebsiella PNA, Acinetobacter and Fina and left main stem thrombus- improved. Now respiratory failure is due to neurological compromise/ anoxic brain injury - s/p thrombectomy LM stem bronchus, ELLEN and LLL via FOB 04/22 Status: Acute Assessment and plan: - Pulmonary managing trach collar - Trach 04/21 by ENT - Completed Zosyn, Fluconazole and inhaled MOLINA 300mg BID, bronchodilators, vent support/ oxygen - CT of the chest on 04/22/2017 was negative for PE - CXR 04/25 showed complete white out of left lung - CXR repeat x-ray shows mild bilateral infiltrates improved Current Visit: No Qualifiers: Chronicity: acute (2) Coagulapathy with acute blood loss anemia- resolved - s/p FFP, cryoprecipitate, vitamin K and protamine and PRBCs. No evidence of DIC and HIT antibody was negative. Holding all blood thinners, NSAIDS, ASA. (3) Left lung density- improved - ? fluid vs. blood vs. other (4) Anoxic brain injury- unchanged Status: Acute Current Visit: Yes - Neurology has seen and suspects poor prognosis for recovery. - Monitor neuro status (5) Suspected seizure disorder - s/p Ativan 3g IV x 1. on Keppra 750 mg po bid. Neuro signed off. - Seizure precautions (6) Diabetes mellitus Status: Chronic Assessment and plan: - SSI. Accuchecks q6h - Cont low dose lantus. Current Visit: No Qualifiers: Diabetes mellitus type: type 1 Diabetes mellitus complication status: with kidney complications Diabetes mellitus complication detail: with chronic kidney disease Chronic kidney disease stage: stage 4 (severe) Qualified Code (s): E10.22 - Type 1 diabetes mellitus with diabetic chronic kidney disease; N18.4 - Chronic kidney disease, stage 4 (severe) (7) Chronic Systolic CHF - Status: Acute Assessment and plan: - s/p Albumin x 3 doses given severe hypoalbuminemia. - Cardiology assisting - on Lasix per tube and cont metolazone. Check serial labs Current Visit: No (8) S/P Cardiac arrest Status: Acute Current Visit: Yes (9) Acute kidney injury superimposed on chronic kidney disease suspected stage 4 Status: Acute Assessment and plan: - Started HD 04/18/17. Last treatment was 04/28. According to the niece, family wants to continue hemodialysis despite them knowing this will not improve his neurological function. Renal following. Current Visit: Yes (10) Moderate protein calorie malnutrition - cont tubefeeds. nutrition following (11) Diarrhea-noninfectious - stool studies reviewed. FMT in place. Once removed, can likely try questran or Fibersol to increase bulk of stool. (12) acute candidal urinary tract infection/ cystitis -Completed Fluconazole x 7 days total DVT prophylaxis - SCDs. No anticoagulation given severe bleeding. H and H so far stable I have signed an affidavit 05/05 stating that at this time, pt is clinically unable to make decisions re: his health or finances. I understand that the niece is currently seeking conservatorship. Risk Management, niece and niece's civil rights attorney were present. Dispo: To [facility]. D/W case management
[2017-05-07] MEDS: metOLazone 5 MG TABLET PO SCH (07:59)
[2017-05-07] MEDS: METOPROLOL TARTRATE 25 MG TABLET PO SCH ×2 (07:59→21:50)
[2017-05-07] MEDS: FUROSEMIDE 40 MG/5 ML UDCUP PO SCH ×2 (08:00→17:31)
[2017-05-07] MEDS: LANSOPRAZOLE ODT 30 MG TABLET PO SCH (08:00)
[2017-05-07] MEDS: BACITRACIN OINT 0.9 GM PACK TOP SCH (08:00)
[2017-05-07] MEDS: MINERAL OIL/PETROLATUM OPH OINT 3.5 GM TUBE BOTH EYES SCH ×3 (08:02→22:00)
[2017-05-07] MEDS: levETIRAcetam LIQUID 100 MG/ML 30 ML/BOTTLE PO SCH ×2 (08:02→21:49)
[2017-05-07] MEDS: DESITIN 4OZ/NYSTATIN 15 GRAM MIXTURE PASTE TOP SCH ×2 (08:02→21:52)
--- NOTE | 2017-05-07 08:09 | XRay Report ---
XR chest 1V portable Indication: SOB Comparison: Chest x-ray dated May 04, 2017 Technique: Single frontal view of the chest. Findings: Continued cardiomegaly. Bilateral mid and lower lung opacification with probable layering pleural fluid appears similar to prior examination considering change in technique. Visualized osseous and surrounding soft tissue structures appear grossly unchanged. Tracheostomy tube appears unchanged. Right-sided central venous catheter tip not well visualized but suspected at the level of the distal SVC. IMPRESSION: No significant interval change. PROCEDURE INTERPRETED AT [facility] DEPARTMENT OF RADIOLOGY Final Report Signed by: Dr Austin Galindo
--- NOTE | 2017-05-07 11:54 | Discharge Summary ---
<Marcelle Rivera - Last Filed: 05/07/17 12:00> Hospital Course - Hospital Course Hospital Course: Pt is a 61 year old male with multiple medical problems including cardiomyopathy, chronic kidney disease stage IV, lower extremity edema , and cellulitis and abscess of the face who presented to [facility] after a code 04/09. Apparently, patient was at swing bed at [facility] when he coded there. He reportedly was asystole for an extended period of time according to the ER staff. He was coded again in our ER after he got here. He was put on epinephrine drip and was neurologically not showing much response. Hospital Medicine was consulted to admit him through the emergency room. He was being followed by Dr. Bhakta, Dr. Williamson, and Dr. Ulloa at the rehab facility. He was placed on [place] Protocol and pulmonology/critical care medicine, cardiology, neurology, nephrology and ENT were consulted to assist with his management. He was treated for acute respiratory failure due to Klebsiella, Acinetobacter and candidal pneumonia thought due to aspiration with Zosyn, Fluconazole, and inhaled Tobramycin and completed treatment for this. He continued with ventilator support due to neurological compromise and anoxic brain injury. Due to poor neurological recovery patient required tracheostomy 04/21 by ENT. Patient had a bronchoscopy done 04/22 where thrombectomy was done from LM stem bronchus, ELLEN and LLL. CT of the chest on 04/22/2017 was negative for PE. Patient developed bleeding postoperatively due to coagulopathy with acute blood loss anemia and received FFP, cryoprecipitate, vitamin K and protamine and PRBCs with good results to stop bleeding. No evidence of DIC was noted on the screen and HIT antibody was negative. All blood thinners and ASA have been held. No NSAIDs were given. CXR 04/25 showed complete white out of left lung which apparently has improved. CXR repeat x-ray shows mild bilateral infiltrates improved. For anoxic brain injury, neurology evaluated the patient. He reportedly had an EEG that showed generalized slowing. He developed myoclonic jerking suggestive of seizure activity. He was started on Keppra IV after receiving Ativan 3 g IV 1. After serial evaluations, neurology determined that patient has poor prognosis for recovery and explained this to the family. They expressed understanding. Once starting Keppra, no further seizure-like activity was read noted or reported. Neurology has signed off of the case. For diabetes mellitus, patient was placed on an insulin sliding scale with Accu- Cheks every 6 hours. He was started on low-dose Lantus which has shown good control with his blood sugars during hospitalization. For cardiac issues, cardiology is followed. He was noted to have chronic systolic congestive heart failure and was started on Lasix with metolazone and given albumin for fluid overload. Patient responded well to this and is currently compensated. For acute renal failure on chronic kidney disease stage IV suspected now end- stage renal disease patient was started on hemodialysis due to worsening kidney function on April 18. His last hemodialysis treatment was April 28. There was some question as to whether the family would want to continue hemodialysis. According to the niece, family wants to continue hemodialysis despite them knowing this will not improve his neurological function. For moderate protein calorie malnutrition, patient was continued on tube feeds and nutrition was following. Patient had noninfectious diarrhea with a sacral decubitus. Stool studies were placed were negative for infectious etiologies. Fecal management system was placed. Once removed, can likely try questran or Fibersol to increase bulk of stool. Wound care was following. Patient was also treated for a candidal urinary tract infection/cystitis of which he completed a seven-day course of fluconazole. On May 05, I was asked to sign an affidavit stating that at this time, pt is clinically unable to make decisions re: his health or finances. I was told the niece is currently seeking conservatorship. Risk Management, niece and niece's associate attorney were present. The patient continued to deteriorate over the course of the hospitalization. The notes from the day before his reveal: Assessment and Plan (1) Anoxic brain injury Problem details: No evidence of recovery. Status: Acute Assessment and plan: Patient has no chance of recovery, patient's niece finally showed up today and refuses to care for him at home. Would pursue patient abandonment if she does not produce proof of insurance for [facility] care on Thursday. [facility] has refused to take him. Current Visit: Yes (2) Pneumonia due to Klebsiella pneumoniae Status: Acute Assessment and plan: Already received to complete his course of antibiotics. Current Visit: Yes (3) Chronic systolic (congestive) heart failure Status: Acute Assessment and plan: continue dialysis Current Visit: Yes (4) Cardiac arrest Status: Acute Assessment and plan: Patient suffered anoxic brain injury Current Visit: Yes (5) Chronic kidney disease, stage IV (severe) Status: Chronic Assessment and plan: Patient has received dialysis as needed. Current Visit: Yes (6) Anemia due to acute blood loss Status: Acute Assessment and plan: resolved Current Visit: Yes (7) Seizure disorder Status: Acute Assessment and plan: Continue Keppra Current Visit: Yes Hospitalist: Subjective Interval history: Had long conversation with patient's niece who will be appointed as conservator. She has not had her conservatorship signed by the bankruptcy judge. She is supposed to have a hearing soon next week. Patient is stable and ready for discharge. She informed me she does not plan to take him home. She wants him to go to a fpc. Patient has a trach and therefore we do not have many choices. Discussed EVA Guajardo versus Bruno. Patient does not qualify for Medicaid as he has too many fund and he is 2 years before he is eligible for Medicare. She is telling me that she thinks he has a long-term care plan and plans to get the policy number in the details on Thursday. I have spoke with Dr. Kira Silverman from [facility] and they refused to take him as he no longer requires hospital care. Patient is a [place] but he is not insured through the [facility]. He has Blue [employer] Blue Shield currently. If the nursing homes are unwilling to take him and she refuses to take him home, it is patient abandonment and he would become a badillo of the state. Evita different from case management will speak with family today. Niece feels that she wants to continue everything and will not consider hospice. She says as long as this heart is beating she wants to continue to to keep him alive despite no hope of recovery from his anoxic brain injury and meaningful recovery. Ultimately the patient succumbed to his illness with a time of of 1818. Review of the nurse's notes reveals: Pt's family called out at 1811 stating pt had gagged, nurses entered room and began to suction trach. Resp very shallow and slow at this time. Unable to get Bp or 02 sat to mushroom picker. 1818 No pulse found, checked x3 RN's. pronounced at this time by Barb Ardon and BARB Adkins. 1832 [place], BAND LINING BANDER notified of patient's . 1841 Zayda called, pt ruled out. ref number [id number] I spoke with Stephanie. Family still unsure about home at this time. - Time spent with patient Time with patient DS: Greater than 30 minutes (35) Discharge Plan - Discharge Data Disposition: - Discharge Medications New Albuterol/Ipratropium Neb [Duoneb] 3 ml RESP TX RT Q6H Dextrose 50% [D50] 25 gm IV PRN PRN vial PRN Reason: Hypoglycemia with IV access Glucagon 1 mg IM PRN PRN vial PRN Reason: Hypoglycemia w/o IV access Insulin Glargine [Lantus] 5 unit SUBCUT BEDTIME unit Lansoprazole Odt Tab [Prevacid Solutab] 30 mg PO DAILY tablet Metoprolol Tartrate Tab [Lopressor Tab] 12.5 mg PO BID tablet Mineral Oil/Petrolat Oph Oint [Refresh PM Oph Oint] 1 applic BOTH EYES TID applic hydrALAZINE INJ [Apresoline Inj] 10 mg IV Q6H PRN vial PRN Reason: Hypotension hydrALAZINE TAB [Apresoline Tab] 25 mg PO TID PRN tablet PRN Reason: Blood Pressure-Increased levETIRAcetam LIQUID [Keppra Liquid] 750 mg PO BID ml metOLazone [Zaroxolyn] 5 mg PO DAILY tablet Furosemide Liquid [Lasix Liquid] 80 mg PO BID DIURETIC Insulin Regular [HumuLIN R] See Protocol SUBCUT Q4H unit Oxymetazoline 0.05% Nasal Spr [Afrin Nasal [place]] 2 spray BOTH NARES BID PRN bottle PRN Reason: Bleeding Continue Folic Acid Tab 1 mg PO DAILY Lactobacillus Rhamnosus GG [Culturelle] 1 capsule PO BID capsule Cyanocobalamin (Vitamin B-12) [Vitamin B-12] 1,000 mcg PO DAILY Discontinued Simvastatin [Zocor] 10 mg PO BEDTIME Carvedilol [Coreg] 12.5 mg PO BID tablet Chlorhexidine 0.12% Oral Rinse [Peridex] 15 ml SWISH/SPIT BID bottle Glucagon 1 mg IM PRN PRN #0 vial PRN Reason: Hypoglycemia w/o IV access HYDROcodone/ACETAMIN 5-325 [[place] 5-325] 1 tablet PO Q6H PRN #0 tablet PRN Reason: Pain Moderate (4-7) Insulin NPH [HumuLIN N] 16 unit SUBCUT BID unit Insulin Regular [HumuLIN R] See Protocol SUBCUT Q6HR unit Lansoprazole Odt Tab [Prevacid Solutab] 30 mg PER TUBE DAILY tablet Mupirocin 2% Oint [Bactroban 2% Oint] 1 applic TOP BID applic hydrALAZINE TAB [Apresoline Tab] 25 mg PO TID tablet Aspirin EC Tab 81 mg PO DAILY tablet Albuterol/Ipratropium Neb [Duoneb] 3 ml RESP TX RT Q4H Bisacodyl Tab [Dulcolax Tab] 10 mg PO DAILY PRN #0 tablet PRN Reason: Constipation Dextrose 50% [D50] 25 gm IV PRN PRN #0 vial PRN Reason: Hypoglycemia with IV access Isosorbide Mononitrate [Imdur] 30 mg PO DAILY tablet Vancomycin/0.9 % Sod Chloride [Vanco 1.5 gm/500 ml-0.9% NaCl] 1.5 gm IV Q48H #5 plast..bag - Follow Up or Referral - Forms/Instructions DS: Provider Date of admission: 04/09/17 22:53 Primary care physician: Yue Suarez MD Attending physician on admission: Alfred Lund MD Consults: 04/09/17 23:37 Consult to Physician [CONS] Routine Comment: Consulting Provider: Chavo Williamson Consulting Provider Notified: Yes Consult to Specialist Group: Nephrology Person Notified: RIKI Date Notified: 04/10/17 Time Notified: 08:45 Consult to Physician [CONS] Routine Comment: Consulting Provider: Jem Bhakta Consulting Provider Notified: Yes Consult to Specialist Group: Pulmonology Person Notified: VANGIE Date Notified: 04/10/17 Time Notified: 08:50 04/09/17 23:41 Consult to Physician [CONS] Routine Comment: cardiac arrest Consulting Provider: Cardiology - [facility] Consulting Provider Notified: Yes Consult to Specialist Group: Cardiology Person Notified: MARYLU Date Notified: 04/10/17 Time Notified: 09:10 Consult Notification Comment: [facility] ALREADY SEEN PT THIS AM 04/10/17 01:26 Consult to Physician [CONS] Routine Comment: Consulting Provider: Vladislav Ulloa Consult to Specialist Group: Neurology Person Notified: LILLIANA Date Notified: 04/10/17 Time Notified: 08:50 Consult Notification Comment: ON BYPASS THIS WEEKEND 04/14/17 07:28 Consult to Dietitian [CONS] Routine Reason for Dietitian: TF-Initiate/Manage 04/16/17 15:25 Consult to Case Mgmt/Social Srvs [CONS] Routine Reason for Case Mgmt/Social Srvs: LTAC 04/18/17 10:26 Consult to Physician [CONS] Routine Comment: placement of dialysis catheter Consulting Provider: Daren Tiwari When should Consulting Provider be notified: Now Consult to Specialist Group: Surgery When should Consulting Provider be notified: Now Person Notified: Dr Tiwari Date Notified: 04/18/17 Time Notified: 10:32 04/20/17 07:19 Consult to Physician [CONS] Routine Comment: Consulting Provider: Patrick Grajeda Consulting Provider Notified: Yes Consult to Specialist Group: ENT When should Consulting Provider be notified: Now Person Notified: RUBIN Date Notified: 04/20/17 Time Notified: 08:55 04/24/17 17:19 Consult to Physician [CONS] Routine Comment: bleeding disorder Consulting Provider: Alfred Gonzales 05/10/17 12:17 Consult to Physician [CONS] Routine Comment: pus in right ear Consulting Provider: Patrick Grajeda When should Consulting Provider be notified: Now Person Notified: md cerda Date Notified: 05/10/17 Time Notified: 12:30 05/10/17 13:39 Consult to Case Mgmt/Social Srvs [CONS] Routine Reason for Case Mgmt/Social Srvs: Other Consult Comment: fpc but would file patient abandonment with [facility] Discharging clinician: Marcelle Rivera MD <Lana Chavez - Last Filed: 05/25/17 15:06> Hospital Course - Time spent with patient Time with patient DS: Greater than 30 minutes (65 minutes was spent on this discharge) Diagnosis - Discharge Diagnosis (1) Sudden cardiac Status: Acute (2) Congestive heart failure Status: Chronic (3) Diabetes Status: Chronic (4) Cellulitis Status: Acute (5) Hypertension Status: Chronic (6) Acute hypoxemic respiratory failure Status: Acute (7) Systolic CHF, acute on chronic Status: Acute (8) Nephrotic syndrome Status: Chronic (9) Acute respiratory failure Status: Acute DS: Provider Expected date of discharge: 05/11/17
[2017-05-07] MEDS ORDERED: HEPARIN 10,000 UNIT/10 ML VIAL IV SCH (16:00)
--- NOTE | 2017-05-07 21:32 | Nephrology Progress Note ---
Nephrology - PN: Subj Interval history: No change in neurologic status. Exam (PN)-Nephrology - Vital Signs Vital signs: Period Temp Pulse Resp BP Sys/Post Pulse Ox Last 24 Hr 96.6 F-97.7 F 60-72 12-24 99-137/55-82 95-100 Exam: Gen.: Not responsive Neck: Supple. No JVD or bruit. Cardiovascular: Regular rate and rhythm. No murmur rub or gallop Lungs: Clear Abdomen: Soft. Nontender. Positive bowel sounds. No organomegaly Extremities: 1+ edema - Lab 05/07/17 04:10 05/07/17 04:10 Most recent lab results ABG pH 7.491 (7.35-7.45) H 05/04/17 03:15 ABG pCO2 31.1 MM HG (35-48) L 05/04/17 03:15 ABG pO2 130.0 MM HG (80-95) H 05/04/17 03:15 ABG HCO3 25.2 MMOL/L (20-26) 05/04/17 03:15 ABG O2 Saturation 99.3 % (95-100) 05/04/17 03:15 Calcium 7.7 MG/DL (8.5-10.1) L 05/07/17 04:10 Phosphorus 4.6 MG/DL (2.5-4.9) 05/04/17 04:20 Magnesium 3.4 MG/DL (1.8-2.4) H 05/07/17 04:10 Assessment and Plan (1) Chronic kidney disease, stage IV (severe) Status: Chronic Assessment and plan: 61-year-old man admitted with: * CRF stage IV. Baseline creatinine mid threes * ARF on CRF. Last dialysis was 04/28/2017. I discussed his prognosis in detail with his niece. I have explained that dialysis will not affect his neurologic injury. She has discussed this with other family members and request that dialysis be continued * Nephrotic syndrome * Diabetes mellitus * Cardiomyopathy * Cardiac arrest. * Ventilatory failure. Post tracheostomy. Now on trach collar * Anoxic brain injury. No improvement in neurologic status. Current Visit: Yes (2) Acute respiratory failure Status: Acute Current Visit: Yes Qualifiers: Respiratory failure complication: hypoxia Qualified Code(s): J96.01 - Acute respiratory failure with hypoxia (3) Cardiac arrest Status: Acute Current Visit: Yes (4) Cellulitis and abscess of face Status: Acute Current Visit: No (5) Cardiomyopathy Status: Chronic Current Visit: No (6) Diabetes Status: Chronic Current Visit: No Qualifiers: Diabetes mellitus type: type 1 Diabetes mellitus complication status: with kidney complications Diabetes mellitus complication detail: with chronic kidney disease Chronic kidney disease stage: stage 4 (severe) Qualified Code (s): E10.22 - Type 1 diabetes mellitus with diabetic chronic kidney disease; N18.4 - Chronic kidney disease, stage 4 (severe) (7) Nephrotic syndrome Status: Chronic Current Visit: No
[2017-05-07] MEDS: INSULIN GLARGINE 100 UNIT/ML SUBCUT SCH (21:50)
[2017-05-08] MEDS: INSULIN REGULAR 100 UNIT/ML SUBCUT SCH ×6 (00:30→14:21)
[2017-05-08] MEDS: ALBUTEROL/IPRATROPIUM 3 ML NEB RESP TX SCH ×6 (00:38→23:59)
--- NOTE | 2017-05-08 08:50 | Pulmonology Progress Note ---
Pulmonary - PN: Subj Interval history: This 61-year-old man had a cardiac arrest and has finished the [facility] protocol. He remains on the ventilator. He required higher settings of PEEP and FiO2 over the weekend but this morning his PO2 is 264 on 90% oxygen and 15 of PEEP. We can reduce both the FiO2 and PEEP and recheck ABGs this morning. He remains unresponsive. Apparently does have a bit of a gag reflex. Neurology is to review his case and see what they think about prognosis. Family has made him a DO NOT RESUSCITATE. 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 04/14/2017 patient remains unresponsive. Neurologic evaluation has indicated severe hypoxic brain injury. ABGs are improved. Chest x-ray is stable. Will reduce FiO2 and PEEP. Hopefully can start weaning trial soon. His renal function is getting worse with creatinine up to 6.9. Prognosis is grave. Continuing full support at present. 04/15/2017 patient remains unresponsive. ABGs a little better. Will reduce PEEP to 5 cm. Start weaning trials. Renal function getting worse by the day. Chest x-ray looks a little bit wet. Getting saline to try to maintain urine output. Prognosis grave. 04/16/2017 bloody secretions have come from his endotracheal tube. He has a right lower lobe infiltrate. He has grown Klebsiella from his sputum. He is on Zosyn for that already. Remains unresponsive. Prognosis is poor. Creatinine is 7.7. Patient has end-stage cardiomyopathy and is status post cardiac arrest. He has severe hypoxic brain injury. 04/17/17 ABGs look reasonable. Patient tolerating longer CPAP trials. Patient not able to defend his airway. There is some spontaneous movement but no purposeful movement and he does not respond to anything except painful stimulation. 04/18/2017 patient continues to be unresponsive. His eyes deviate to the right. No change in x-rays. ABGs look good. Creatinine 8.5. Continuing with CPAP trials, however patient not able to defend airway at this point. 04/19/2017 patient remains unresponsive. Eyes deviate to the right. He has some twitching in his left arm. I wonder if there is seizure activity. 04/20/2017 patient is doing some CPAP trials although his mental status is not good. He will require tracheostomy. 04/21/2017 patient was having some twitching activity yesterday. He was seen by Dr. Ulloa. Started on seizure medications. Still no signs of neurologic recovery. Patient is to have tracheostomy today. Consider LTAC transfer after that. 04/22/2017 patient had tracheostomy yesterday. Dr. Grajeda called me afterwards, stated that he saw something distally in the lower trachea. Plans were made for bronchoscopy this morning. X-ray this morning shows almost opacification of the left lung. He may have something in his left main bronchus. We plan to do bronchoscopy shortly. His mental status is unchanged. Likely will need to go to LTAC. 04/23/2017 x-ray this morning looks much better. He had some thrombi in the left main bronchus that we removed yesterday with bronchoscopy. Still has patchy bilateral infiltrates. Patient remains unresponsive. He is getting dialysis on mechanical ventilation. Apparently his insurance company has declined transfer to LTAC. Labs pending this morning. Continuing support. 04/24/2017 ABGs look good. Chest x-ray shows good aeration of both sides. He does have some basilar atelectasis. Weaning trials were held yesterday because of bleeding per tracheostomy. This seems better this morning. Patient gets a little heparin with his dialysis. He is on baby aspirin. I will hold the baby aspirin. Status post cardiac arrest with severe hypoxic brain injury. Also has Klebsiella pneumonia. Severe cardiomyopathy. Patient is a DO NOT RESUSCITATE but family wants to continue supportive care with mechanical ventilation and dialysis for now. 04/28/2017 patient tolerating some CPAP. Still no change in mental status. Cultures grew out gram-negative rods. Adding Levaquin to the tobramycin for Klebsiella and Acinetobacter 04/29/2017 patient is tolerating CPAP quite well. Will start on trach collar. Perhaps we can get him to full-time trach collar soon. Then could start looking for placement. 04/30/2017 patient did trach collar yesterday but tired out toward the end of it. We will continue those. He does have some flinching with painful stimulation otherwise remains unresponsive. 05/01/17 patient has been on trach collar for 24 hours now. Seems to be doing well with that. ABGs look good. Chest x-ray shows some mild bibasilar atelectasis. Left lung well expanded. Patient is afebrile. He will turn his head a bit to painful stimulus. Otherwise not responsive. Patient can be moved to the floor. May want to consider a long-term mechanical ventilation service such as [facility] or the new one in [place]. He has been turned down as far as coverage for an LTAC. 05/04/2017 patient has tolerated trach collar throughout the weekend. Being fed through PEG tube. Getting dialysis. Hematocrit is down to 21. Patient is not responsive. manager route looking for placement. Inpatient hospice would be a consideration. Difficulty is in having the combination of dialysis and tracheostomy. For now continuing supportive care here. 05/05/2017 patient remains on trach collar. Creatinine a little over 5. It appears that dialysis is going to be discontinued. Patient prognosis is poor. Neurological situation has not changed. Patient will turn his head slightly to painful stimulus but does not respond to any verbal stimulus. No purposeful movements. 05/06/2017 patient remains unresponsive on trach collar. Oxygen saturations acceptable. Awaiting placement. It would be reasonable for patient to move to the [place] while awaiting placement. Patient is a DO NOT RESUSCITATE. Should be able to be adequately suctioned as needed on the floor. 05/07/2017 patient tolerating trach collar without difficulty. He is a DO NOT RESUSCITATE and there are no plans to put him back on the ventilator. Presently holding dialysis. Patient could be moved to the floor. His prognosis is poor. 05/08/2017 patient has been moved to the [place]. Doing well with trach collar. Has a hematocrit of 21. Defer to nephrology as far as whether transfusion would be helpful later. Based on Dr. Williamson note yesterday, he may get additional dialysis going forward. Exam (Progress Note) - Constitutional Vitals: Period Temp Pulse Resp BP Sys/Post Pulse Ox Last 24 Hr 96.2 F-96.7 F 58-70 14-24 100-132/57-82 92-100 Exam: Patient is unresponsive, except he does flinch to painful stimulus. Vital signs normal. He does have normal respiratory effort and a cough reflex. Pupils small irregular and sluggish. Face symmetrical. Tracheostomy is in place. Respiratory rate in the mid teens on trach collar. Neck is supple. Chest reveals scattered rhonchi bilaterally but equal breath sounds today. Heart normal rate rhythm no murmurs. Abdomen soft no masses. Extremities no clubbing cyanosis edema. Results - Labs CBC & BMP: 05/07/17 04:10 05/07/17 04:10 Lab Results: I have reviewed the past 24 hour labs Assessment and Plan (1) Acute respiratory failure Status: Acute Assessment and plan: Patient is on the ventilator 100% oxygen. ABGs look good at present. Will reduce FiO2 to 60%. Certainly cannot start weaning until we see what his mental status is like and that will be after [place] protocol. 04/13/17 ABGs improved. Will reduce FiO2 and PEEP a little. Prognosis is poor. 04/14/2017 ABGs improved. We can reduce both FiO2 and PEEP. Hopefully one would get his PEEP down to 6 we can start weaning. 04/15/2017 ABGs are better. Reducing PEEP. Start weaning. Mental status will guide us with weaning. 04/16/2017 patient starting to do CPAP. Mental status will guide us where to go later. If we are to continue long-term mechanical ventilatory support and would likely need a tracheostomy in a few days. 04/17/2017 tolerating prolonged CPAP trials. It appears that we will likely be doing a tracheostomy next week if no other changes. I do not think he can defend his airway at this point. 04/18/2017 patient continues to tolerate CPAP, however he is not alert and unable to defend his airway at this point. 04/19/2017 continuing with CPAP trials. ABGs improved. Reduce FiO2. Progressing with CPAP. Likely will need tracheostomy 04/20/2017 patient tolerating CPAP trials but would not be able to defend his airway. Will proceed with ENT consult for tracheostomy. 04/21/2017 ABGs are pending but so far we have been able to relate him fairly easily. He is for tracheostomy today. Reasonable to continue ventilatory support for a couple of weeks. His family is seeing some motion that they are interpreting as purposeful. I have not seen any purposeful motion. He does have some seizure activity. 04/22/2017 patient has done okay with CPAP's prior to the tracheostomy. He required pressors after that. He has opacification of the left long. Hopefully we can clear that up with bronchoscopy. Suspect mucous plugging or thrombi in the left mainstem. 04/23/2017 respiratory failure following cardiac arrest with hypoxic brain injury. Klebsiella pneumonia. Left lung looks better radiographically. Apparently had thrombi in the left main bronchus due either to bleeding from the tracheostomy or pulmonary hemorrhage. CT was negative for pulmonary embolus. He has bibasilar pneumonia and pleural effusions. 04/24/2017 ABGs look good. Resume weaning trials today. 04/28/2017 continuing with weaning trials. Oxygen saturations acceptable. 04/29/2017 patient tolerated CPAP quite well. Start on trach collar. 04/30/2017 ABGs look good. Tolerating trach collar but tired after several hours. Will continue to try to increase times on trach collar. 05/01/17 patient tolerating trach collar for 24 hours. ABGs look good on 35% trach collar. 05/04/2017 patient now tolerating trach collar full-time. PO2 is 130 on 35% trach collar. Will reduce to 30%. 05/05/2017 patient remains on trach collar. Oxygen saturation acceptable with 30 % trach collar. 05/06/2017 patient now breathing adequately. Requiring low flow oxygen. Suctioning as needed as he does not do well clearing his airway. 05/07/2017 acute respiratory failure has resolved. Still requiring oxygen. Require tracheostomy for suctioning. 05/08/2017 no longer in acute respiratory failure. Does require oxygen per tracheostomy. Current Visit: Yes Qualifiers: Respiratory failure complication: hypoxia Qualified Code(s): J96.01 - Acute respiratory failure with hypoxia (2) Cardiac arrest Status: Acute Assessment and plan: Patient had a cardiac arrest last night. He has known severe cardiomyopathy. Did not have any known electrolyte imbalance. Does have chronic renal failure with a creatinine now around 5. He would be at increased risk for a pulmonary embolism. 04/13/17 it appears that he has had significant brain injury. Await neurologic evaluation. 04/14/2017 and apparent severe hypoxic brain injury. See neurology note 04/15/2017 apparent severe hypoxic brain injury. 04/16/2017 continues to exhibit signs of severe hypoxic brain injury. 04/17/2017 severe brain injury. 04/18/2017 again continues to show signs of hypoxic brain injury. Responds to painful stimulus. Does not follow with his eyes. Does not respond to questions. Eyes deviate to the right. 04/19/2017 hypoxic brain injury. Patient is turning his head at times and moving all little but not in response to requests. Does not appear to be purposeful. 04/20/2017 patient has a severe cardiomyopathy. Has severe hypoxic brain injury post cardiac arrest. His family wants us to continue full support. Will need tracheostomy to wean off ventilator. He is not able to defend his airway. 04/21/2017 severe cardiomyopathy hypoxic brain injury. We had considered pulmonary embolus before. He is off anticoagulants now because of some pulmonary hemorrhage. Will obtain a CT PE protocol once he gets the trach done. 04/22/17 hypoxic brain injury. Cardiac arrest related to his cardiomyopathy. 04/23/2017 status post cardiac arrest probably due to his cardiomyopathy with arrhythmias. Hypoxic brain injury persists. 04/24/2017 has severe cardiomyopathy with subsequent arrest. Hypoxic brain injury. Prognosis is poor. 04/28/2017 severe hypoxic brain injury. 04/29/2017 severe hypoxic brain injury due to cardiac arrest from severe cardiomyopathy. Prognosis remains poor 04/30/2017 severe hypoxic brain injury symptoms persist. 05/01/17 again has severe hypoxic brain injury. 05/04/2017 severe hypoxic brain injury secondary to cardiac arrest, caused by severe cardiomyopathy. 05/05/2017 severe hypoxic brain injury. No improvement. 05/06/2017 severe hypoxic brain injury due to cardiac arrest. No change. 05/07/17 hypoxic brain injury. No change in mental status. 05/08/2017 has severe hypoxic brain injury due to his cardiac arrest due to his severe cardiomyopathy. Current Visit: Yes (3) Chronic renal insufficiency Status: Chronic Assessment and plan: Creatinine has gone up from about 3.7-5 over the last few days. 04/13/17 creatinine up to 5.9 04/14/2017 creatinine is up to 6.9. Will start on some nasogastric feedings and IV fluids. 04/15/2017 creatinine up to 7.5. Defer to nephrology 04/16/2017 creatinine is 7.7. Perhaps it's levelling off. 04/17/2017 creatinine 8.1. Renal following 04/18/2017 creatinine 8.5 now. Bicarb level is 19. Potassium 4.8. He is making urine. 04/19/2017 patient started on dialysis yesterday. Chest x-ray looks a little bit less wet. 04/20/2017 defer to nephrology. He has been started on dialysis and his x-ray is looking a little better. 04/21/2017 continuing dialysis. 04/22/2017 getting dialysis. 04/23/2017 getting dialysis regularly. 04/24/2017 acute renal failure being treated with dialysis. He is due for dialysis today. 04/28/2017 followed by renal with dialysis as required. 04/29/2017 getting dialysis as required 04/30/2017 getting dialysis as required 05/01/17 continuing with dialysis. 05/04/2017 continuing with dialysis at this point. 05/05/2017 nephrology and primary service have discussed this with the family. Apparently dialysis will be discontinued. 05/06/2017 nephrology has discussed case with the family. Holding dialysis at present. Decision on dialysis going forward to be made after further discussion. 05/07/2017 dialysis being held with the present time. 05/08/2017 creatinine slowly rising. Defer to nephrology. Yesterday's note indicates that the family wants him to continue with dialysis if needed. Current Visit: Yes (4) Congestive heart failure Status: Chronic Assessment and plan: Systolic acute on chronic congestive failure due to severe cardiomyopathy. His troponins are not elevated so it does not appear that he had a myocardial infarction as the cause of his arrest last night. 04/13/17 x-ray shows increased interstitial markings consistent with congestive heart failure, but not brigida pulmonary edema. 04/14/2017 does not appear to be in pulmonary edema. 04/15/2017 appears to be developing pulmonary edema. However ABGs are better. IV fluids started yesterday by cardiology. 04/16/2017 this lobe infiltrate. Difficult to tell him what this is heart failure, which may be the Klebsiella pneumonia. He is on Zosyn. 04/17/2017 chest x-ray compatible with mild congestive heart failure. Also getting antibiotics for Klebsiella pneumonia 04/18/2017 severe cardiomyopathy. 04/19/2017 seems to be a little better after dialysis. 04/20/2017 again chest x-ray is a little better. 04/21/2017 improved with dialysis. 04/22/2017 severe cardiomyopathy. Does not appear to be in failure at present. 04/23/2017 severe cardiomyopathy with bilateral pleural effusions. 04/24/2017 severe cardiomyopathy. Bilateral modest pleural effusions and basilar atelectasis. 04/28/2017 severe cardiomyopathy, probably mild failure at this point. 04/29/2017 this appears to be better controlled. 04/30/2017 has a right pleural effusion. May be a little ahead on fluid. Defer to dialysis/renal. 05/01/17 has a cardiomyopathy. Congestive heart failure symptoms primarily controlled by dialysis. 05/04/2017 end-stage cardiomyopathy. X-ray looks a little wet. Due for dialysis. 05/06/2017 chronic congestive heart failure due to end-stage cardiomyopathy. 05/07/2017 severe cardiomyopathy. Is not in brigida failure at present. Current Visit: Yes Qualifiers: Congestive heart failure type: unspecified congestive heart failure type Congestive heart failure chronicity: acute on chronic Qualified Code(s): I50.9 - Heart failure, unspecified (5) Cellulitis and abscess of face Status: Acute Assessment and plan: He has actually completed full course of treatment for the cellulitis. We need to be careful about vancomycin with his renal failure. Defer to ENT and nephrology on antibiotics and dosing. Current Visit: No (6) Nephrotic syndrome Status: Chronic Assessment and plan: He has peripheral edema. Low serum protein. Increased risk for DVT/PTED. Current Visit: No (7) Pulmonary embolism Status: Ruled-out Assessment and plan: Perfusion lung scan suggestive of pulmonary embolism. Unable to obtain PE protocol CT scan due to renal failure. Patient is on empiric heparin infusion. 04/14/2017 continuing heparin for suspected pulmonary thromboembolic disease 04/15/2017 patient is on heparin. 04/16/2017 his perfusion lung scan was suggestive of pulmonary embolism. We do not have a definitive diagnosis. He has had some pulmonary hemorrhage. I stop the heparin yesterday. Difficult situation. 04/17/2017 this is not a definitive diagnosis which was suspected at the time of his arrest. He had nonspecifically abnormal VQ lung scan. We did not do a CT PE protocol because of the renal failure. His heparin has been held because of bloody pulmonary secretions. Continue to monitor. 04/18/2017 will put on subcu heparin. 04/19/2017 never clear-cut about whether he had an embolus. He had some pulmonary hemorrhage when fully anticoagulated. We now have all subcu heparin prophylactic doses. Now that he is on dialysis we can do a CT PE protocol and will consider that tomorrow. 04/20/2017 this is not a definite diagnosis. We are using DVT prophylaxis at present. It will be worthwhile at some point to get CT PE protocol now that he is on dialysis. 04/21/2017 this is a questionable diagnosis. Plan CT PE protocol either later today or tomorrow. 04/22/2017 again need to do a CT PE protocol. Likely will do that later today. 04/23/2017 pulmonary embolus has been ruled out. 05/01/17 patient does NOT have a pulmonary embolism. 05/06/2017 again pulmonary embolism has been ruled out. Current Visit: Yes
[2017-05-08] MEDS: levETIRAcetam LIQUID 100 MG/ML 30 ML/BOTTLE PO SCH ×2 (09:55→21:11)
[2017-05-08] MEDS: BACITRACIN OINT 0.9 GM PACK TOP SCH (09:57)
[2017-05-08] MEDS: FUROSEMIDE 40 MG/5 ML UDCUP PO SCH ×2 (09:57→17:47)
[2017-05-08] MEDS: LANSOPRAZOLE ODT 30 MG TABLET PO SCH (09:57)
[2017-05-08] MEDS: metOLazone 5 MG TABLET PO SCH (09:57)
[2017-05-08] MEDS: METOPROLOL TARTRATE 25 MG TABLET PO SCH ×3 (09:57→21:13)
[2017-05-08] MEDS: DESITIN 4OZ/NYSTATIN 15 GRAM MIXTURE PASTE TOP SCH ×2 (09:59→21:11)
[2017-05-08] MEDS: MINERAL OIL/PETROLATUM OPH OINT 3.5 GM TUBE BOTH EYES SCH ×3 (09:59→21:11)
[2017-05-08] MEDS: fentaNYL 25 MCG/HR PATCH TRANSDERM SCH (14:23)
--- NOTE | 2017-05-08 14:38 | Hospitalist Progress Note ---
Assessment and Plan (1) Anoxic brain injury Problem details: No evidence of recovery. Status: Acute Assessment and plan: Patient has no chance of recovery will discuss hospice with niece Current Visit: Yes (2) Pneumonia due to Klebsiella pneumoniae Status: Acute Assessment and plan: Already received to complete his course of antibiotics. Current Visit: Yes (3) Chronic systolic (congestive) heart failure Status: Acute Assessment and plan: Continue Lasix 80 mg twice daily Current Visit: Yes (4) Cardiac arrest Status: Acute Assessment and plan: Patient suffered anoxic brain injury which is not reversible will discuss hospice care with niece when she arrives. Must see her conservatorship papers signed by a land leveler Current Visit: Yes (5) Chronic kidney disease, stage IV (severe) Status: Chronic Assessment and plan: Patient has received dialysis as needed. Dr. Williamson believes patient should be hospice end-of-life care Current Visit: Yes (6) Tracheostomy hemorrhage Status: Acute Assessment and plan: Had complications with bleeding around trach site. No evidence of DIC or hit antibody. Problem has resolved Current Visit: Yes (7) Anemia due to acute blood loss Status: Acute Assessment and plan: Patient is received a total of 5 units of packed red blood cells since admission. Current Visit: Yes (8) Seizure disorder Status: Acute Assessment and plan: Continue Keppra Current Visit: Yes Hospitalist: Subjective Interval history: patients sister was in the room. Apparently her daughter is attempting to get power of civil attorney and conservatorship. In speaking with Dr. Kira Silverman who the HUMAN RESOURCES OFFICER over at [facility], she informed me that if the family is unwilling to take the patient home then he becomes a [place] of state and the niece will be unable to access funds. If patient is discharged home to the niece and the home health feels that he is not been cared for appropriately then the curyung assume his care and informs the trade mark attorney. Have spoke with case management and updated them. I have talked to the patient's sister about hospice end-of-life care. She seems to be open to this conversation. Dr. Duane Schmidt our emergency room registered nurse is also spoken with her. Patient's sister says that her daughter is currently at the Social Security office and then will be coming over here afterwards. Exam - Constitutional Vitals: Period Temp Pulse Resp BP Sys/Post Pulse Ox Last 24 Hr 96.2 F-97.1 F 58-70 14-22 110-132/57-82 92-100 Exam: Heart Rate-[RRR] Lungs-[diminished ] GI-[+bs soft, NT] Ext-anasarca Neuro unresponsive to pain psych unable to evaluate due to neuro status General [no acute distress] - Expanded ENT Exam Mouth exam: Present: moist Throat exam: Present: normal inspection Results - Labs CBC & BMP: 05/07/17 04:10 05/07/17 04:10 Lab Results: I have reviewed the past 24 hour labs
--- NOTE | 2017-05-08 16:19 | Nephrology Progress Note ---
Nephrology - PN: Subj Interval history: There is been no change in neurologic status. Exam (PN)-Nephrology - Vital Signs Vital signs: Period Temp Pulse Resp BP Sys/Post Pulse Ox Last 24 Hr 96.2 F-97.1 F 58-70 14-22 110-132/57-82 92-100 Exam: ENT: Tracheostomy present Cardiovascular: Regular rate and rhythm. No murmur rub or gallop Lungs: Clear Extremities: 1+ edema - Lab 05/07/17 04:10 05/07/17 04:10 Most recent lab results ABG pH 7.491 (7.35-7.45) H 05/04/17 03:15 ABG pCO2 31.1 MM HG (35-48) L 05/04/17 03:15 ABG pO2 130.0 MM HG (80-95) H 05/04/17 03:15 ABG HCO3 25.2 MMOL/L (20-26) 05/04/17 03:15 ABG O2 Saturation 99.3 % (95-100) 05/04/17 03:15 Calcium 7.7 MG/DL (8.5-10.1) L 05/07/17 04:10 Phosphorus 4.6 MG/DL (2.5-4.9) 05/04/17 04:20 Magnesium 3.4 MG/DL (1.8-2.4) H 05/07/17 04:10 Assessment and Plan (1) Chronic kidney disease, stage IV (severe) Status: Chronic Assessment and plan: 61-year-old man admitted with: * CRF stage IV. Baseline creatinine mid threes * ARF on CRF. He was dialyzed yesterday based on family request. He is scheduled for dialysis tomorrow unless family changes their directive. I have explained that dialysis will not improve his neurologic status. Discussed with Dr. Rizzo. Hospice care is appropriate if family agrees * Nephrotic syndrome * Diabetes mellitus * Cardiomyopathy * Cardiac arrest. * Ventilatory failure. Post tracheostomy. Now on trach collar * Anoxic brain injury. No improvement in neurologic status. Current Visit: Yes (2) Acute respiratory failure Status: Acute Current Visit: Yes Qualifiers: Respiratory failure complication: hypoxia Qualified Code(s): J96.01 - Acute respiratory failure with hypoxia (3) Cardiac arrest Status: Acute Current Visit: Yes (4) Cellulitis and abscess of face Status: Acute Current Visit: No (5) Cardiomyopathy Status: Chronic Current Visit: No (6) Diabetes Status: Chronic Current Visit: No Qualifiers: Diabetes mellitus type: type 1 Diabetes mellitus complication status: with kidney complications Diabetes mellitus complication detail: with chronic kidney disease Chronic kidney disease stage: stage 4 (severe) Qualified Code (s): E10.22 - Type 1 diabetes mellitus with diabetic chronic kidney disease; N18.4 - Chronic kidney disease, stage 4 (severe) (7) Nephrotic syndrome Status: Chronic Current Visit: No
[2017-05-08] MEDS: INSULIN GLARGINE 100 UNIT/ML SUBCUT SCH ×2 (21:11→21:24)
[2017-05-09] MEDS: INSULIN REGULAR 100 UNIT/ML SUBCUT SCH ×6 (05:48→23:31)
[2017-05-09] MEDS: ALBUTEROL/IPRATROPIUM 3 ML NEB RESP TX SCH ×3 (07:32→19:25)
[2017-05-09] MEDS: METOPROLOL TARTRATE 25 MG TABLET PO SCH ×2 (08:12→21:02)
[2017-05-09] MEDS: LANSOPRAZOLE ODT 30 MG TABLET PO SCH (08:12)
[2017-05-09] MEDS: BACITRACIN OINT 0.9 GM PACK TOP SCH (08:12)
[2017-05-09] MEDS: FUROSEMIDE 40 MG/5 ML UDCUP PO SCH ×2 (08:13→15:30)
[2017-05-09] MEDS: levETIRAcetam LIQUID 100 MG/ML 30 ML/BOTTLE PO SCH ×2 (08:14→21:06)
[2017-05-09] MEDS: DESITIN 4OZ/NYSTATIN 15 GRAM MIXTURE PASTE TOP SCH ×2 (08:14→21:12)
[2017-05-09] MEDS: MINERAL OIL/PETROLATUM OPH OINT 3.5 GM TUBE BOTH EYES SCH ×3 (08:14→21:11)
[2017-05-09] MEDS: metOLazone 5 MG TABLET PO SCH (08:15)
--- NOTE | 2017-05-09 10:02 | Nephrology Progress Note ---
Nephrology - PN: Subj Interval history: Patient is seen on hemodialysis, he is unresponsive to verbal stimuli, he did move his right leg a little one palpated for edema. Physical exam general the patient has no meaningful response Assessment/plan 1. Acute renal failure requiring hemodialysis-we will continue HD support 2. Cardiac arrest 3. Anemia-patient's hematocrit was around 21% few days ago 4. Diabetes mellitus Exam (PN)-Nephrology - Vital Signs Vital signs: Period Temp Pulse Resp BP Sys/Post Pulse Ox Last 24 Hr 96.1 F-99.0 F 56-69 16-22 90-126/55-79 98-100 - Lab 05/07/17 04:10 05/07/17 04:10 Most recent lab results ABG pH 7.491 (7.35-7.45) H 05/04/17 03:15 ABG pCO2 31.1 MM HG (35-48) L 05/04/17 03:15 ABG pO2 130.0 MM HG (80-95) H 05/04/17 03:15 ABG HCO3 25.2 MMOL/L (20-26) 05/04/17 03:15 ABG O2 Saturation 99.3 % (95-100) 05/04/17 03:15 Calcium 7.7 MG/DL (8.5-10.1) L 05/07/17 04:10 Phosphorus 4.6 MG/DL (2.5-4.9) 05/04/17 04:20 Magnesium 3.4 MG/DL (1.8-2.4) H 05/07/17 04:10
--- NOTE | 2017-05-09 11:14 | Event Note ---
Patient now on floor home trach collar oxygen. Family has decided to continue with dialysis. He is stable from pulmonary standpoint. Has very deep coma or persistent vegetative state. Unlikely that he will ever recover any neurologic function. Will sign off from pulmonary standpoint. Please call if needed further.
--- NOTE | 2017-05-09 14:21 | Hospitalist Progress Note ---
Assessment and Plan (1) Anoxic brain injury Problem details: No evidence of recovery. Status: Acute Assessment and plan: Patient has no chance of recovery, patient's niece was suppose to come in and speak with me yesterday but did not. Current Visit: Yes (2) Pneumonia due to Klebsiella pneumoniae Status: Acute Assessment and plan: Already received to complete his course of antibiotics. Current Visit: Yes (3) Chronic systolic (congestive) heart failure Status: Acute Assessment and plan: continue dialysis Current Visit: Yes (4) Cardiac arrest Status: Acute Assessment and plan: Patient suffered anoxic brain injury Current Visit: Yes (5) Chronic kidney disease, stage IV (severe) Status: Chronic Assessment and plan: Patient has received dialysis as needed. Current Visit: Yes (6) Tracheostomy hemorrhage Status: Acute Assessment and plan: Had complications with bleeding around trach site. Current Visit: Yes (7) Anemia due to acute blood loss Status: Acute Assessment and plan: resolved Current Visit: Yes (8) Seizure disorder Status: Acute Assessment and plan: Continue Keppra Current Visit: Yes Hospitalist: Subjective Interval history: Spoke with case management today. Apparently patient cannot qualify Medicaid 2 years before for the respects to go on Medicare. Nursing is spoke with the niece last night and she wanted him to go to a long term but he has no long term benefits through [facility]. He will qualify for Medicare until he 63. Patient qualifies for disability but still does not get Medicare and telemetry 63. Patient has chronic and stable pulmonary signed off. Patient will be discharged soon. Exam - Constitutional Vitals: Period Temp Pulse Resp BP Sys/Post Pulse Ox Last 24 Hr 96.1 F-99.0 F 56-69 14-22 90-125/55-71 98-100 Exam: Heart Rate-[RRR] Lungs-[diminished ] GI-[+bs soft, NT] Ext-anasarca Neuro unresponsive to pain psych unable to evaluate due to neuro status General [no acute distress] - Expanded ENT Exam Mouth exam: Present: moist Throat exam: Present: normal inspection Results - Labs CBC & BMP: 05/07/17 04:10 05/07/17 04:10
[2017-05-09] MEDS: INSULIN GLARGINE 100 UNIT/ML SUBCUT SCH (21:04)
[2017-05-10] MEDS: ALBUTEROL/IPRATROPIUM 3 ML NEB RESP TX SCH ×4 (00:19→19:22)
[2017-05-10] MEDS: INSULIN REGULAR 100 UNIT/ML SUBCUT SCH ×4 (05:12→23:22)
[2017-05-10] MEDS: LANSOPRAZOLE ODT 30 MG TABLET PO SCH (09:11)
[2017-05-10] MEDS: FUROSEMIDE 40 MG/5 ML UDCUP PO SCH ×2 (09:11→17:11)
[2017-05-10] MEDS: metOLazone 5 MG TABLET PO SCH (09:11)
[2017-05-10] MEDS: BACITRACIN OINT 0.9 GM PACK TOP SCH (09:11)
[2017-05-10] MEDS: levETIRAcetam LIQUID 100 MG/ML 30 ML/BOTTLE PO SCH ×2 (09:12→22:00)
[2017-05-10] MEDS: DESITIN 4OZ/NYSTATIN 15 GRAM MIXTURE PASTE TOP SCH ×2 (09:12→20:33)
[2017-05-10] MEDS: MINERAL OIL/PETROLATUM OPH OINT 3.5 GM TUBE BOTH EYES SCH ×3 (09:12→20:32)
[2017-05-10] MEDS: METOPROLOL TARTRATE 25 MG TABLET PO SCH ×2 (09:12→20:35)
--- NOTE | 2017-05-10 13:39 | Hospitalist Progress Note ---
Assessment and Plan (1) Anoxic brain injury Problem details: No evidence of recovery. Status: Acute Assessment and plan: Patient has no chance of recovery, patient's niece finally showed up today and refuses to care for him at home. Would pursue patient abandonment if she does not produce proof of insurance for shelter care on Thursday. [facility] has refused to take him. Current Visit: Yes (2) Pneumonia due to Klebsiella pneumoniae Status: Acute Assessment and plan: Already received to complete his course of antibiotics. Current Visit: Yes (3) Chronic systolic (congestive) heart failure Status: Acute Assessment and plan: continue dialysis Current Visit: Yes (4) Cardiac arrest Status: Acute Assessment and plan: Patient suffered anoxic brain injury Current Visit: Yes (5) Chronic kidney disease, stage IV (severe) Status: Chronic Assessment and plan: Patient has received dialysis as needed. Current Visit: Yes (6) Anemia due to acute blood loss Status: Acute Assessment and plan: resolved Current Visit: Yes (7) Seizure disorder Status: Acute Assessment and plan: Continue Keppra Current Visit: Yes Hospitalist: Subjective Interval history: Had long conversation with patient's niece who will be appointed as conservator. She has not had her conservatorship signed by the visitor services specialist. She is supposed to have a hearing soon next week. Patient is stable and ready for discharge. She informed me she does not plan to take him home. She wants him to go to a retirement. Patient has a trach and therefore we do not have many choices. Discussed [facility] versus [facility]. Patient does not qualify for Medicaid as he has too many fund and he is 2 years before he is eligible for Medicare. She is telling me that she thinks he has a long-term care plan and plans to get the policy number in the details on Thursday. I have spoke with Dr. Kira Silverman from [facility] and they refused to take him as he no longer requires hospital care. Patient is a [employer] but he is not insured through the [facility]. He has Blue [employer] Blue Shield currently. If the nursing homes are unwilling to take him and she refuses to take him home, it is patient abandonment and he would become a badillo of the state. Evita different from case management will speak with family today. Niece feels that she wants to continue everything and will not consider hospice. She says as long as this heart is beating she wants to continue to to keep him alive despite no hope of recovery from his anoxic brain injury and meaningful recovery. Exam - Constitutional Vitals: Period Temp Pulse Resp BP Sys/Post Pulse Ox Last 24 Hr 96.2 F-97.6 F 52-88 16-21 98-125/59-79 92-99 Exam: Heart Rate-[RRR] Lungs-[clear] GI-[+bs soft, NT] Ext-anasarca Neuro unresponsive to pain psych unable to evaluate due to neuro status General [no acute distress] left eye purulent drainage and right ear infection - Expanded ENT Exam Mouth exam: Present: moist Throat exam: Present: normal inspection Results - Labs CBC & BMP: 05/07/17 04:10 05/07/17 04:10
[2017-05-10] MEDS: GENTAMICIN 0.3% OPH OINT 3.5 GM TUBE LEFT EYE SCH ×2 (14:10→20:33)
[2017-05-10] MEDS: CIPROFLOXACIN/DEXAMETHASONE OTIC SUSP 7.5 ML BOTTLE BOTH EARS SCH ×2 (14:10→20:31)
[2017-05-10] MEDS ORDERED: TUBERCULIN SKIN TEST 0.1 ML SYRINGE INTRADERM ONE (14:30)
--- NOTE | 2017-05-10 14:30 | Case Mgmt Physician Query Form ---
TB Signs and Symptoms Screening ([place]) INSTRUCTIONS: To be completed annually on residents/staff with a significant Tuberculin Skin Test (TST) upon admission/hire or a prior significant TST. To be completed on all staff at hire. Please respond to each listed symptom with an (X) in either the "YES" or "NO" box. Do you currently have any of the following symptoms: YES NO ( ) ( x) A cough If yes, is it: ( ) Productive ( ) Non- productive ( ) (x ) Hemoptysis (spitting up blood) ( ) (x ) Chest pains ( ) (x ) Weight Loss ( ) (x ) Fever ( ) ( x) Night Sweats ( x) ( ) Weakness ( ) ( x) Loss of Appetite ( ) (x ) Difficulty Breathing If you answered YES" to any of the above questions, how long have symptoms been present? Comments: If you have any questions, please contact me. Thank you, Evita LUZ P: [phone] F: [phone] E: [email or web address] [email or web address]
[2017-05-10] MEDS ORDERED: SCOPOLAMINE 1.5 MG PATCH TRANSDERM SCH (15:30)
--- NOTE | 2017-05-10 16:47 | Nephrology Progress Note ---
Nephrology - PN: Subj Interval history: Patient moves his head back and forth a little when stimulated but is nonverbal Physical exam general patient is chronically ill-appearing, heart regular rate and rhythm, he has trace pretibial edema, lungs are clear to auscultation anteriorly, abdomen is soft with positive bowel sounds Assessment/plan 1. Acute renal failure requiring hemodialysis support 2. Cardiac arrest 3. Anemia 4. Diabetes mellitus this is controlled Exam (PN)-Nephrology - Vital Signs Vital signs: Period Temp Pulse Resp BP Sys/Post Pulse Ox Last 24 Hr 96.3 F-97.6 F 52-88 16-22 98-125/59-79 92-99 - Lab 05/07/17 04:10 05/07/17 04:10 Most recent lab results ABG pH 7.491 (7.35-7.45) H 05/04/17 03:15 ABG pCO2 31.1 MM HG (35-48) L 05/04/17 03:15 ABG pO2 130.0 MM HG (80-95) H 05/04/17 03:15 ABG HCO3 25.2 MMOL/L (20-26) 05/04/17 03:15 ABG O2 Saturation 99.3 % (95-100) 05/04/17 03:15 Calcium 7.7 MG/DL (8.5-10.1) L 05/07/17 04:10 Phosphorus 4.6 MG/DL (2.5-4.9) 05/04/17 04:20 Magnesium 3.4 MG/DL (1.8-2.4) H 05/07/17 04:10
[2017-05-10] MEDS: INSULIN GLARGINE 100 UNIT/ML SUBCUT SCH (20:34)
[2017-05-11] MEDS: ALBUTEROL/IPRATROPIUM 3 ML NEB RESP TX SCH ×4 (00:12→19:42)
[2017-05-11] MEDS: INSULIN REGULAR 100 UNIT/ML SUBCUT SCH ×3 (06:17→18:40)
[2017-05-11] MEDS: fentaNYL 25 MCG/HR PATCH TRANSDERM SCH (08:26)
[2017-05-11] MEDS: FUROSEMIDE 40 MG/5 ML UDCUP PO SCH ×2 (08:26→15:41)
[2017-05-11] MEDS: BACITRACIN OINT 0.9 GM PACK TOP SCH (08:26)
[2017-05-11] MEDS: METOPROLOL TARTRATE 25 MG TABLET PO SCH (08:27)
[2017-05-11] MEDS: MINERAL OIL/PETROLATUM OPH OINT 3.5 GM TUBE BOTH EYES SCH ×2 (08:27→13:59)
[2017-05-11] MEDS: GENTAMICIN 0.3% OPH OINT 3.5 GM TUBE LEFT EYE SCH ×2 (08:27→13:59)
[2017-05-11] MEDS: CIPROFLOXACIN/DEXAMETHASONE OTIC SUSP 7.5 ML BOTTLE BOTH EARS SCH (08:27)
[2017-05-11] MEDS: levETIRAcetam LIQUID 100 MG/ML 30 ML/BOTTLE PO SCH (08:27)
[2017-05-11] MEDS: LANSOPRAZOLE ODT 30 MG TABLET PO SCH (08:27)
[2017-05-11] MEDS: DESITIN 4OZ/NYSTATIN 15 GRAM MIXTURE PASTE TOP SCH (08:27)
[2017-05-11] MEDS: metOLazone 5 MG TABLET PO SCH (08:28)
--- NOTE | 2017-05-11 11:57 | Nephrology Progress Note ---
Nephrology - PN: Subj Interval history: He remains unresponsive. No new problems Exam (PN)-Nephrology - Vital Signs Vital signs: Period Temp Pulse Resp BP Sys/Post Pulse Ox Last 24 Hr 96.1 F-97.8 F 18-78 18-22 98-122/45-70 89-100 Exam: General: Unresponsive Cardiovascular: Regular rate and rhythm. No murmur rub or gallop Lungs: Clear Extremities: Trace edema - Lab 05/07/17 04:10 05/07/17 04:10 Most recent lab results ABG pH 7.491 (7.35-7.45) H 05/04/17 03:15 ABG pCO2 31.1 MM HG (35-48) L 05/04/17 03:15 ABG pO2 130.0 MM HG (80-95) H 05/04/17 03:15 ABG HCO3 25.2 MMOL/L (20-26) 05/04/17 03:15 ABG O2 Saturation 99.3 % (95-100) 05/04/17 03:15 Calcium 7.7 MG/DL (8.5-10.1) L 05/07/17 04:10 Phosphorus 4.6 MG/DL (2.5-4.9) 05/04/17 04:20 Magnesium 3.4 MG/DL (1.8-2.4) H 05/07/17 04:10 Assessment and Plan (1) Chronic kidney disease, stage IV (severe) Status: Chronic Assessment and plan: 61-year-old man admitted with: * CRF stage IV. Baseline creatinine mid threes * ARF on CRF. I discussed his prognosis with his sister. * Nephrotic syndrome * Diabetes mellitus * Cardiomyopathy * Cardiac arrest. * Ventilatory failure. Post tracheostomy. Now on trach collar * Anoxic brain injury. No improvement in neurologic status. Current Visit: Yes (2) Acute respiratory failure Status: Acute Current Visit: Yes Qualifiers: Respiratory failure complication: hypoxia Qualified Code(s): J96.01 - Acute respiratory failure with hypoxia (3) Cardiac arrest Status: Acute Current Visit: Yes (4) Cellulitis and abscess of face Status: Acute Current Visit: No (5) Cardiomyopathy Status: Chronic Current Visit: No (6) Diabetes Status: Chronic Current Visit: No Qualifiers: Diabetes mellitus type: type 1 Diabetes mellitus complication status: with kidney complications Diabetes mellitus complication detail: with chronic kidney disease Chronic kidney disease stage: stage 4 (severe) Qualified Code (s): E10.22 - Type 1 diabetes mellitus with diabetic chronic kidney disease; N18.4 - Chronic kidney disease, stage 4 (severe) (7) Nephrotic syndrome Status: Chronic Current Visit: No
--- NOTE | 2017-05-11 13:40 | Hospitalist Progress Note ---
Assessment and Plan (1) Acute kidney injury superimposed on chronic kidney disease Problem details: No acute indication for renal replacement therapy at this time. Status: Acute Assessment and plan: No current plans for hemodialysis at this time. Nephrology to manage. Current Visit: Yes (2) Acute respiratory failure Status: Acute Assessment and plan: Remains on trach collar at 40% FiO2. Current Visit: Yes Qualifiers: Respiratory failure complication: hypoxia Qualified Code(s): J96.01 - Acute respiratory failure with hypoxia (3) Anoxic brain injury Problem details: No evidence of recovery. Status: Acute Assessment and plan: Patient remains unresponsive. His prognosis is poor. I am certain that there is a degree of knowledge deficit with his family. After much discussion with his family; a DO NOT RESUSCITATE order was placed. We will continue to manage medically, however at this point all management is futile. Current Visit: Yes Hospitalist: Subjective Interval history: Patient seen and examined; chart reviewed. No significant overnight events. Family is present at bedside, however no plans for discharge have been discussed. His power of attorney lawyer has been unreachable by phone. Exam - Constitutional Vitals: Period Temp Pulse Resp BP Sys/Post Pulse Ox Last 24 Hr 96.1 F-97.8 F 18-78 18-22 98-122/45-70 89-100 General appearance: normal weight, no acute distress - Head Head exam: Present: normal inspection, normocephalic, atraumatic - Eye Pupils: Present: ASHLY - ENT ENT exam: Present: normal exam, normal external ear exam - Expanded ENT Exam Ear exam: Present: external canal tenderness (drainage noted from right ear) Mouth exam: Present: moist Throat exam: Present: normal inspection - Neck Neck exam: Present: normal inspection, other (tracheostomy noted). Absent: lymphadenopathy, meningismus, thyromegaly - Respiratory Respiratory exam: Present: clear to auscultation bilaterally - Cardiovascular Cardiovascular exam: Present: regular rate and rhythm. Absent: carotid bruit, diastolic murmur, gallop, JVD, rubs, systolic murmur - GI/Abdominal GI/Abdominal exam: Present: normal bowel sounds, other (PEG TUBE) - Extremities Exam Extremities exam: Present: other (Anasarca) - Back Exam Back exam: Present: normal inspection - Neurological Exam Neurological exam: Present: other (Unresponsive to verbal and tactile stimuli) - Skin Skin exam: Present: normal color, warm, dry Results - Labs CBC & BMP: 05/07/17 04:10 05/07/17 04:10 Lab Results: I have reviewed the past 24 hour labs
[2017-05-11] MEDS: ALBUTEROL 2.5 MG/3 ML NEB RESP TX PRN (14:00)
[2017-05-11 17:31] VITALS: BP 92/47
== END 2017-05-11 18:19 | disposition expired | DRG 4 ==
LOC: EDUNIT# → EDBD → N.ED 20:15 → N.EDINP 22:53 → SUATTDRO 22:53 → N.ICU 04-10 00:36 → N.5E 05-07 17:43
PROVIDERS: ADMIT Internal Medicine; ATTEND Internal Medicine